=== PATIENT | male | born 1935 | race Caucasian/White ===

== ENCOUNTER 2022-01-26 07:36 | Outpatient (CLI) | payer MEDICARE, SELFPAY ==
[2022-01-26 11:49] LABS: Creatinine Urine 69.2 mg/dL
[2022-01-26 11:53] LABS: Microalbumin Creatinine Ratio 10 mg/g (0-30); Microalbumin Urine < 1 mg/dL
[2022-01-26 12:13] LABS: Albumin* 4.3 g/dL (3.3-5.0)
[2022-01-26 12:14] LABS: Chloride* 99 mmol/L (96-114); Potassium* 4.8 mmol/L (3.6-5.1); Sodium* 133 mmol/L (135-149)
[2022-01-26 12:16] LABS: Aspartate Amino Transferase* 30 U/L (12-35); Bilirubin Total* 0.5 mg/dL (0.1-1.5); Carbon Dioxide* 23 mmol/L (20-32); Creatinine* 1.3 mg/dL (0.5-1.5); Estimated Glomerular Filt Rate 54 ml/min; Total Protein* 6.7 g/dL (6.0-8.3)
[2022-01-26 12:17] LABS: Alanine Aminotransferase* 21 U/L (4-50); Alkaline Phosphatase* 84 U/L (40-150); Blood Urea Nitrogen* 37 mg/dL (7-30); Calcium* 9.1 mg/dL (8.4-10.6); Glucose* 177 mg/dL (60-115); Lipase* 79 U/L (23-300)
== END 2022-01-26 07:37 | disposition home or self-care (01) ==
PROVIDERS: PCP Family Medicine; Visit Provider Family Medicine
DX: E11.9 Type 2 diabetes mellitus without complications (principal); D64.9 Anemia, unspecified; I10 Essential (primary) hypertension; E78.5 Hyperlipidemia, unspecified
CPT/HCPCS: 80053; 82043; 82570; 83690

== ENCOUNTER 2022-04-27 08:50 | Outpatient (CLI) | payer MEDICARE, SELFPAY ==
--- OUTSIDE RECORDS SUMMARY | 2022-04-27 07:32 | XMS_ITS | Clinical Summary ---
:1935 Author Organization [facility] [place] [address] Care Team Providers Name Role Phone Ina Sheriff MD Primary Care Provider [phone] Allergies No known active allergies Medications Medication Sig Dispensed Refills Start Date End Date Status aspirin-calcium Take 1 Tab by 0 Active carbonate 81 mg-300 mg mouth once a calcium(777 mg) tab week in the morning. atorvastatin (LIPITOR) Take 1 tablet by 0 03/03/2018 Active 40 mg tablet mouth once daily. bicalutamide (CASODEX) Take 50 mg by 0 09/27/2017 Active 50 mg tablet mouth once daily. calcium Take 1 Tab by 0 Active carbonate/vitamin D3 mouth once (CALCIUM+D ORAL) daily. multivitamin-folic acid Take 1 Tab by 0 Active 0.4 mg tablet mouth once daily. cholecalciferol (VITAMIN Take 1 Cap by 0 Active D3) 1,000 unit capsule mouth once daily. Cinnamon Bark 500 mg Take 1 Cap by 0 Active capsule mouth once daily. glipiZIDE Take 1 tablet by 0 05/24/2019 Ac tive extended-release mouth once daily (GLUCOTROL XL) 5 mg before a meal. Extended-Release tablet lisinopril (PRINIVIL; Take 1 tablet by 0 04/24/2019 Active ZESTRIL) 20 mg tablet mouth once daily. metFORMIN (GLUCOPHAGE) Take 1 tablet by 0 02/16/2018 Active 1,000 mg tablet mouth once daily with a meal. multivitamin, stress Take 1 Tab by 0 Active formula (STRESS FORMULA) mouth once tablet daily. Coenzyme Q10 10 mg cap Take 1 Cap by 0 Active mouth once daily. cyclobenzaprine Bedtime as 0 03/13/2020 Ac tive (FLEXERIL) 10 mg tablet needed resveratrol-quercetin Take by mouth. 0 03/18/2020 Active 100-100 mg tab Active Problems No known active problems Family History Medical History Relation Name Comments Stomach cancer Father Heart Disease Mother Relation Name Status Comments Father Mother Social History Tobacco Use Types Packs/Day Years Used Date Former Smoker Smokeless Tobacco: Never Used Tobacco Cessation: Counseling Given: Yes Sex Assigned at Date Recorded Not on file Obstetrics History Last Filed Vital Signs Vital Sign Reading Time Taken Comments Blood Pressure 133/80 03/18/2020 11:27 AM CDT Pulse 74 03/18/2020 11:27 AM CDT Temperature 36.4 ??C (97.6 ??F) 03/18/2020 11:27 AM CDT Respiratory Rate - - Oxygen Saturation 100% 03/18/2020 11:27 AM CDT Inhaled Oxygen Concentration - - Weight 87.3 kg (192 lb 6.4 oz) 03/18/2020 11:27 AM CDT shoes on Height - - Body Mass Index - - Plan of Treatment Health Maintenance Due Date Last Done Comments COVID-19 vaccine series (#1) 1935 Tdap 1948 Depression screening for age 12+ 1949 BMI (ht and wt on same day) for age 18+ 1955 Tetanus booster 1957 Zoster (shingles) series for age 50+ (1 of 2) 1987 Medicare Wellness for age 65+ 2002 Pneumococcal series for age 65+ (1 - PCV) 2002 Influenza for age 65+ 02/12/2022 Results Not on filefrom Last 3 Months Insurance Payer Benefit Plan / Subscriber ID Effective Dates Phone Addre ss Type Group [employer] G[employer] [place] [employer] CHOICE [id number] 2018-Present [address] [id number] [place] [address] Care Teams Board Catcher Relationship Specialty Start Date End Date Ina Sheriff MD PCP - General Family Practice 03/18/201999 [place] [address] (work)
--- OUTSIDE RECORDS SUMMARY | 2022-04-27 07:33 | XMS_ITS | Encounter Summary ---
:1935 Author Organization [facility] Address [address] [place] [address]. [place] [address] Care Team Providers Name Role Phone Ina Sheriff MD Primary Care Provider [phone] eHrson Licea MD Unavailable Ke Hernandes MD Unavailable Reason for Visit Reason Onset Date Comments Call to schedule test 03/13/2022 Encounter Details Date Type Department Care Team Description 03/13/2022 [facility] Ke Hernandes ll to schedule test Clinic Daniel Richardson MD [address] [facility] [address] Counts include 234 beds at the [facility] [address] [place] [phone] [place] [id number] (Wo rk) Social History Tobacco Use Types Packs/Day Years Used Date Smoking Tobacco: Former Cigarettes Quit : 02/29/1980 Smokeless Tobacco: Never Alcohol Use Standard Drinks/Week Comments Yes 0 (1 standard drink = 0.6 oz pure alcoho l) occasionally Sex Assigned at Date Recorded Not on file COVID-19 Exposure Response Date Recorded In the last 10 days, have you been in contact with No / Unsu re 02/25/2022 1:23 PM CDT someone who was confirmed or suspected to have Coronavirus/COVID-19? documented as of this encounter Miscellaneous Notes Telephone Encounter - Flora Marshall - 03/13/2022 4:15 PM CDT [facility] Phone Message May a detailed message be left on voicemail: yes Reason for Call: Other: Please call the patient to schedule NM Lexiscan Stress test in BV Action Taken: Other: Cardiology Travel Screening: Not Applicable documented in this encounter Plan of Treatment Upcoming Encounters Date Type Specialty Care Team Description 06/18/2022 Ancillary Procedure Cardiology Abdi Bailey MD [address] [place], [place] [id number] (Wo rk) documented as of this encounter Visit Diagnoses Not on filedocumented in this encounter Care Teams Director Of Sustainability Relationship Specialty Start Date End Date Ina Sheriff, PCP - General Family Medicine 01/30/[address] [address] Herson Licea MD Assigned Surgical Provider 02/02/[address] [place] [id number] Ke Hernandes, Assigned Heart and 12/13/21 Vascular Provider [address] [place] [id number] documented as of this encounter
--- OUTSIDE RECORDS SUMMARY | 2022-04-27 07:33 | XMS_ITS | Encounter Summary ---
:1935 Author Organization [facility] Address [facility] [place] [address] Care Team Providers Name Role Phone Ina Sheriff MD Primary Care Provider [phone] Herson Licea MD Unavailable Ke Hernandes MD Unavailable Reason for Referral Diagnostic Imaging NM (Routine) - Authorized Specialty Diagnoses / Procedures Referred By Contact Refer red To Contact Radiology. Diagnoses NSVT (nonsustained ventricular tachycardia) Ke Hernandes MD Nuclear Medicine Procedures NM Lexiscan stress test (nuc card) [address] [place] [address] [place], [place] [phone] Fax: Referral ID Status Reason Start Date Expiration Date Visits V isits Requested Authorized [id number] Authorized 03/20/2022 05/05/2022 5 5 Reason for Visit Diagnostic Imaging NM (Routine) - Authorized Specialty Diagnoses / Procedures Referred By Contact Refer red To Contact Radiology. Diagnoses NSVT (nonsustained ventricular tachycardia) Ke Hernandes MD Nuclear Medicine Procedures NM Lexiscan stress test (nuc card) [address] [place] [address] [place] [phone] Fax: Referral ID Status Reason Start Date Expiration Date Visits V isits Requested Authorized [id number] Authorized 03/20/2022 05/05/2022 5 5 Encounter Details Date Type Department Care Team Description 03/20/2022 Hospital Encounter [facility] Ke Hernandes [place] (nonsustained [facility] MD Dylan ventricular [facility] [address] tachycardia) [address] [place] [phone] Social History Tobacco Use Types Packs/Day Years [...] in contact with No / Unsu re 03/20/2022 7:47 AM CDT someone who was confirmed or suspected to have Coronavirus/COVID-19? documented as of this encounter Medications at Time of Discharge Medication Sig Dispensed Refills Start Date End Date aspirin 81 MG tablet Take 1 tablet by 0 mouth daily atorvastatin (LIPITOR) 40 TAKE 1 TABLET BY 90 tablet 3 02/13 MG tabletIndications: MOUTH DAILY Hyperlipidemia LDL goal <100 blood glucose (ACCU-CHEK USE TO TEST EVERY 100 strip 1 11/13 FRANCISCO PLUS) test DAY DIRECTED stripIndications: Type 2 diabetes mellitus without complication, without long-term current use of insulin (H) Cholecalciferol (VITAMIN D) Take 2,000 Units by 0 1000 UNITS capsule mouth daily cinnamon 500 MG CAPS Take 1 capsule by 0 mouth daily Co-Enzyme Q-10 10 MG CAPS Take 1 capsule by 0 mouth daily Dose of capsule unknown. glipiZIDE (GLUCOTROL XL) 10 TK 1 T PO D 0 020 MG 24 hr tablet lisinopril TAKE 1 TABLET BY 90 tablet 1 08/03/2018 (PRINIVIL/ZESTRIL) 20 MG MOUTH DAILY tabletIndications: Essential hypertension with goal blood pressure less than 140/90 metFORMIN (GLUCOPHAGE) 1000 TAKE 1 TABLET BY 180 tablet 3 MG tabletIndications: Type MOUTH TWICE DAILY 2 diabetes mellitus without complication, without long-term current use of insulin (H) Multiple Vitamin (DAILY Take 1 tablet by 0 MULTIVITAMIN PO) mouth daily vitamin B complex with Take 1 tablet by 0 vitamin C (STRESS TAB) mouth daily. tablet documented as of this encounter Plan of Treatment Upcoming Encounters Date Type Specialty Care Team Description 06/18/2022 Ancillary Procedure Cardiology Abdi Bailey MD [address] [place] [address] (Wo rk) documented as of this encounter Procedures Procedure Name Priority Date/Time Associated Diagnosis Comme nts NM MPI WITH Routine 03/20/2022 10:25 AM NSVT (nonsustained Re sults for this LEXISCAN CDT ventricular procedure are i n tachycardia) the results section. documented in this encounter Results NM Lexiscan stress test (nuc card) (03/20/2022 10:25 AM CDT) Patholo gist Method Time Signature Target HR 136 RADIANT Baseline 151 RADIANT Systolic BP Baseline 81 RADIANT Diastolic BP Last Stress 145 RADIANT Systolic BP Last Stress 85 RADIANT Diastolic BP Baseline HR 64 bpm RADIANT Max HR 80 RADIANT Max Predicted HR 59 % RADIANT Rate Pressure 11,600.0 RADIANT Product Left Ventricular 45 % RADIANT EF Anatomical Region Laterality Modality Chest Nuclear Medicine Specimen (Source) Anatomical Location Collection Method / Collectio n Time Received Time / Laterality Volume Narrative 03/20/2022 4:00 PM CDT ?The nuclear stress test is abnormal. ?There is a medium sized area of nontransmural infarction in the apical, inferior and inferoseptal segment(s) of the left ventricle. ?Left ventricular function is mildly reduced. ??The left ventricular ejection fraction at stress is 45%. ?There is no prior study for comparison. Stress Findings A pharmacologic stress test was performe d following a sitting Lexiscan protocol using 0.4 mg of intravenous regadenoson administered over 10 seconds under the supervision of Narendra Negron. No s ymptoms were reported by the patient dur ing the stress test. ECG Baseline electrocardiogram demonstrates atrioventricular pacing and sinus with ventricular pacing. There were frequent premature atrial contractions and . The stress electrocardiogram was non-machelle gnostic due to ventricular pacing. Isotope Administration Nuclear imaging was accomplished using a one day protocol with 32 mCi of technetium tetrofosmin injected at the completion of Lexiscan infusion on 03/20/2022 and 10.3 mCi of technetium tetrofosmin at rest on 03/20/2022. Nuclear Study Quality The quality process auditor images demonstrate d iaphragmatic attenuation. Final image quality is satisfactory. Perfusion Defect The nuclear stress test is abnormal. The re is a medium sized area of nontransmural infarction in the apical, inferior and inferoseptal segment(s) of the left ventricle. The left ventricular ejection fra ction at stress is 45%. Left ventricular function is mildly reduced. Nuclear Prior Study There is no prior study for comparison. Perfusion Scoring Stress Summed Score: 11 Percent Normal: 16.18% Moderate count reduction in the followin g segments: mid inferoseptal, mid inferior, apex, apical septal and apical inferior. Mild count reduction in the following se gments: basal inferior. All other segments are normal. Perfusion Scoring Resting Summed Score: 11 Percent Normal: 16.18% Moderate count reduction in the followin g segments: mid inferoseptal, mid inferior, apex, apical septal and apical inferior. Mild count reduction in the following se gments: basal inferior. All other segments are normal. Perfusion Scores: SRS Score: 11 Percenta ge Abnormal: 16.18% Perfusion Scores: SSS Score: 11 Percenta ge Abnormal: 16.18% Perfusion Scores: SDS Score: 0 Percentag e Abnormal: 0.00% Wall Motion Score Index: 1.35 The following segments are hypokinetic: basal inferior, mid inferoseptal, mid inferior, apical septal, apical inferior and apex. All other segments are normal. Ke Hernandes MD IM NM ORDERABLES documented in this encounter Visit Diagnoses Diagnosis NSVT (nonsustained ventricular tachycard ia) Paroxysmal ventricular tachycardia documented in this encounter Administered Medications Inactive Administered Medications - up to 3 most recent administrations Medication Order MAR Action Action Date Dose Rate Site regadenoson (LEXISCAN) 0.4 MG/5ML Given 03/20/2022 9:18 AM CDT 0 .4 mg injection Starting on Wed03/20/22 at 0911, For 1 dose, Chance Becerra: cabinet override documented in this encounter Care Teams Personal Development Mentor Relationship Specialty Start Date End Date Ina Sheriff, PCP - General Family Medicine 01/30/21 [facility] [address] [place] [address] Herson Licea MD Assigned Surgical Provider 02/02/[address] [place] [id number] Ke Hernandes, Assigned Heart and 12/13/21 Vascular Provider [address] [facility] [address] [place], [place] [address] documented as of this encounter
--- OUTSIDE RECORDS SUMMARY | 2022-04-27 07:33 | XMS_ITS | Clinical Summary ---
:1935 Author Organization [facility] Address [address] [place] [address] Care Team Providers Name Role Phone Ina Sheriff MD Primary Care Provider [phone] Herson Licea MD Unavailable Ke Reno MD Unavailable Allergies No known active allergies Medications Medication Sig Dispensed Refills Start Date End Date Status aspirin 81 MG tablet Take 1 tablet by 0 Active mouth daily Multiple Vitamin (DAILY Take 1 tablet by 0 Active MULTIVITAMIN PO) mouth daily Co-Enzyme Q-10 10 MG Take 1 capsule 0 Active CAPS by mouth daily Dose of capsule unknown. Cholecalciferol Take 2,000 Units 0 Active (VITAMIN D) 1000 UNITS by mouth daily capsule vitamin B complex with Take 1 tablet by 0 Active vitamin C (STRESS TAB) mouth daily. tablet cinnamon 500 MG CAPS Take 1 capsule 0 Active by mouth daily metFORMIN (GLUCOPHAGE) TAKE 1 TABLET BY 180 tablet 3 8 Active 1000 MG MOUTH TWICE tabletIndications: Type DAILY 2 diabetes mellitus without complication, without long-term current use of insulin (H) atorvastatin (LIPITOR) TAKE 1 TABLET BY 90 tablet 3 03/03/2018 Active 40 MG MOUTH DAILY tabletIndications: Hyperlipidemia LDL goal <100 lisinopril TAKE 1 TABLET BY 90 tablet 1 08/03/2018 A ctive (PRINIVIL/ZESTRIL) 20 MOUTH DAILY MG tabletIndications: Essential hypertension with goal blood pressure less than 140/90 blood glucose USE TO TEST 100 strip 1 12/05/2018 Act jose david (ACCU-CHEK FRANCISCO PLUS) EVERY DAY test stripIndications: DIRECTED Type 2 diabetes mellitus without complication, without long-term current use of insulin (H) glipiZIDE (GLUCOTROL TK 1 T PO D 0 03/04/2020 Active XL) 10 MG 24 hr tablet Active Problems Problem Noted Date Type 2 diabetes mellitus without complication, without long-term current 04/21/2017 use of insulin Benign paroxysmal positional vertigo, unspecified late rality 04/21/2017 Third degree heart block 07/12/2016 Overview: Formatting of this note is dif ferent from the original. Complete heart block, status post dual-c hamber pacemaker on 07/13/2016. ?? History of colonic polyps 03/17/2016 H/O tobacco use, presenting hazards to health 09/06/19 14 Overview: Quit 1979. In 03/25, CT abd shows no AAA Hypertension goal BP (blood pressure) < 140/90 013 Overview: Add lisinopril 02/24 Hyperlipidemia LDL goal <100 09/07/2012 Overview: incr to atorva 40 in 01/26 Preventive measure 09/07/2012 Overview: Colonoscopy 04/24; a 10 mm polyp;tubular adenoma; negative in March 2016. No follow-up needed based on age. Type 2 diabetes mellitus without complication 04/21/20 11 Overview: DX approx 2003 per pt Malignant neoplasm of prostate Overview: Prostate cancer; radioactive seeds ; Dr. Mckee;PSA 8.6 in 04/25; casodex in 2012. Stable in 11/26 and in 02/27 ; < 0.04 in 08/28; Dr Good and in 02/28 and in 08/29 and in 08/30 Encounters Date Type Specialty Care Team Description 03/27/2022 Telephone Cardiology Jo Aguilar RN 03/20/2022 Hospital Encounter Radiology. Ke Reno MD 03/20/2022 Hospital Encounter Radiology. Ke Reno MD 03/20/2022 Hospital Encounter Radiology. Ke Reno MD 03/20/2022 Hospital Encounter Cardiology Ke Reno NSVT (n onsustained MD Sergio ventricular tachycardia) 03/20/2022 Travel 03/17/2022 Telephone Cardiology Jo Aguilar RN 03/13/2022 Telephone Cardiology Ke Reno Call to silvana Hill MD 03/12/2022 Telephone Cardiology Heather Sharif pacemaker re mote check 03/12/2022 Orders Only Cardiology Abdi Bailey MD Cardiac pacem lexis in situ (Primary D x) 03/12/2022 Ancillary Procedure Cardiology Abdi Bailey MD Cardia c pacemaker in situ 02/25/2022 Hospital Encounter Cardiology Ke Reno Paroxys mal ventricular MD Sergio tachycardia (H) 02/25/2022 Travel 02/04/2022 Office Visit Urology Herson Licea Prostat e cancer (H) (Primary Dx) 02/04/2022 Travel 01/29/2022 Lab Lab Prostate cancer (H) 01/29/2022 Travel 01/26/2022 Orders Only Urology Herson Licea Prostat e cancer (H) (Primary Dx) 01/26/2022 Documentation Only Lab Herson Licea MD from Last 3 Months Immunizations Name Administration Dates Next Due Influenza (H1N1) 06/03/2009 Influenza (High Dose) 3 valent 02/16/2018, 04/02/2017, 03/17, 02/16/2019 vaccine 03/22/2015 Influenza (IIV3) PF 02/25/2010, 04/09/2005 Pneumo Conj 13-V (2010&after) 01/30/2015 Pneumococcal 23 valent 02/16/2018 TD (ADULT, 7+) 02/18/2006 Zoster vaccine, live 03/10/2012 Family History Medical History Relation Comments Cancer Brother Diabetes Son 1 type 2 DM age 50 Relation Status Comments Brother Daughter Alive Father Mother Son 1 Alive Son 2 Alive Social History Tobacco Use Types Packs/Day Years Used Date Smoking Tobacco: Former Cigarettes Quit : 02/29/1980 Smokeless Tobacco: Never Tobacco Cessation: Counseling Given: No Alcohol Use Standard Drinks/Week Comments Yes 0 (1 standard drink = 0.6 oz pure alcoho l) occasionally Sex Assigned at Date Recorded Not on file Last Filed Vital Signs Vital Sign Reading Time Taken Comments Blood Pressure 124/70 02/04/2022 2:09 PM CDT Pulse 72 12/10/2021 3:37 PM CDT Temperature 36.6 ??C (97.9 ??F) 02/16/2018 8:36 AM CDT Respiratory Rate 14 02/16/2018 8:36 AM CDT Oxygen Saturation 99% 12/10/2021 3:37 PM CDT Inhaled Oxygen Concentration - - Weight 83.9 kg (185 lb) 02/04/2022 2:09 PM CDT Height 185.4 cm (6' 1) 02/04/2022 2:09 PM CDT Body Mass Index 24.41 02/04/2022 2:09 PM CDT Plan of Treatment Upcoming Encounters Date Type Specialty Care Team Description 06/18/2022 Ancillary Procedure Cardiology Abdi Bailey MD [address] [place] [id number] (Wo rk) Health Maintenance Due Date Last Done Comments ADVANCE CARE PLANNING 1935 ANNUAL REVIEW OF HM ORDERS 1935 LIPID 05/14/2018 05/14/2017, 07/23/2015, 03/21/2014, Additional history exists A1C 08/16/2018 02/16/2018, 04/21/2017, 07/13/2016, Additional history exists BMP 02/16/2019 02/16/2018, 04/21/2017, 07/13/2016, Additional history exists DIABETIC FOOT EXAM 02/16/2019 02/16/2018, 02/16/2018, 03/17/2016, Additional history exists FALL RISK ASSESSMENT 02/16/2019 02/16/2018, 07/21/2016, 07/23/2015, Additional history exists MEDICARE ANNUAL WELLNESS 02/16/2019 02/16/2018 VISIT MICROALBUMIN 02/16/2019 02/16/2018, 04/21/2017, 07/23/2015, Additional history exists EYE EXAM 03/08/2021 03/08/2020, 08/07/2019, 08/07/2019, Additional history exists PHQ-2 (once per calendar 06/14/2021 01/30/2021, 11/21/2019, year) 09/07/2018, Additional history exists COVID-19 Vaccine (5 - 01/06/2022 11/11/2021, 04/03/2021, Booster for Pfizer series) 08/20/2020, Additiona l history exists INFLUENZA VACCINE (#1) 2022 03/24/2021, 02/27/2020, 03/24/2019, Additional history exists DTAP/TDAP/TD IMMUNIZATION 05/23/2030 05/23/2020, 02/18/2006 (3 - Td or Tdap) Pneumococcal Vaccine: 65+ Completed 02/16/2018, 01/30/2015 , Years 03/10/2010 ZOSTER IMMUNIZATION Completed 05/23/2020, 02/27/2020, 03/10/2012, Additional history exists IPV IMMUNIZATION Aged Out No longer eligi ble based on patient 's age to complete this topic MENINGITIS IMMUNIZATION Aged Out No longe r eligible based on patient 's age to complete this topic Medical Devices Implanted Type Area Advance Seal Delivery System Maintainer Device Shelf Model / Serial Identifier Expiration / Lot Date Medtronic I* [id number] Capsurefix Novus Mri Surescan [id number] Leads [employer] 5076 CAPSUREFIX NOVUS MRI MARTINEZ RESCAN / Implanted: 07/13/2016 (Quantity not on file) [id number] / Medtronic I* [id number] Advisa Mri [id number] Pacemaker [employer] [id number] ADVISA MRI / Implanted: 07/13/2016 (Quantity not on file) [id number] / Procedures Procedure Name Priority Date/Time Associated Comments Diagnosis NM MPI WITH LEXISCAN Routine 03/20/2022 10:25 NSVT (nonsustain ed Results for this AM CDT ventricular procedure are i n tachycardia) the results section. INTERROGATION DEVICE Routine 03/12/2022 1:40 PM Cardiac pacema ker Results for this EVAL REMOTE PACER UP CDT in situ procedu re are in TO 90 DAYS the results section. ECHO LIMITED Routine 02/25/2022 2:16 PM Paroxysmal Results f or this CDT ventricular procedure are i n tachycardia (H) the results section. PSA TUMOR MARKER Routine 01/29/2022 7:59 AM Prostate cancer (H ) Results for this CDT procedure are i n the results section. from Last 3 Months Results NM Lexiscan stress test (nuc card) (03/20/2022 10:25 AM CDT) [facility] gist Method Time Signature Target HR 136 [...] on 03/20/2022. Nuclear Study Quality The quality assurance images demonstrate d iaphragmatic attenuation. Final image [...] apex. All other segments are normal. Ke FLANNERY NM ORDERABLES INTERROGATION DEVICE EVAL REMOTE PACER UP TO 90 DAYS (03/12/2022 1:40 PM CDT) Component Value Ref Test Analysis Performed Pathologis t Range Method Time At Signature Date Time [id number] MEDTRONIC Interrogation Session Implantable Medtronic MEDTRONIC Pulse Generator Advance Seal Delivery System Maintainer Implantable [id number] Advisa MEDTRONIC Pulse Generator MRI Model Implantable [id number] MEDTRONIC Pulse Generator Serial Number Type Remote MEDTRONIC Interrogation Session Clinic Name [facility] MEDTRONIC Implantable Pacemaker MEDTRONIC Pulse Generator Type Implantable [id number] MEDTRONIC Pulse Generator Implant Date Implantable Lead Medtronic MEDTRONIC Advance Seal Delivery System Maintainer Implantable Lead 5076 CapSureFix MEDTRON IC Model Novus MRI SureScan Implantable Lead [id number] MEDTRONIC Serial Number Implantable Lead [id number] MEDTRONIC Implant Date Implantable Lead Bipolar Lead MEDTRONIC Polarity Type Implantable Lead UNKNOWN MEDTRONIC Location Detail 1 Implantable Lead Right Atrium MEDTRONIC Location Implantable Lead Medtronic MEDTRONIC Advance Seal Delivery System Maintainer Implantable Lead 5076 CapSureFix MEDTRON IC Model Novus MRI SureScan Implantable Lead [id number] MEDTRONIC Serial Number Implantable Lead [id number] MEDTRONIC Implant Date Implantable Lead Bipolar Lead MEDTRONIC Polarity Type Implantable Lead UNKNOWN MEDTRONIC Location Detail 1 Implantable Lead Right Ventricle MEDTRON IC Location [place] Setting DDD MEDTRONIC Mode (NBG Code) [place] Setting 60 {beats}/ MEDTRONIC Lower Rate Limit min [place] Setting 130 {beats}/ MEDTRONIC Maximum Tracking min Rate [place] Setting 130 {beats}/ MEDTRONIC Maximum Sensor min Rate [place] Setting DISABLED MEDTRONIC Hysterisis Rate [place] Setting 150 ms MEDTRONIC ABY Delay Low [place] Setting 180 ms MEDTRONIC PAV Delay Low [place] Setting AT 171 {beats}/ MEDTRONIC Mode Switch Rate min Lead Channel Bipolar MEDTRONIC Setting Sensing Polarity Lead Channel Right Atrium MEDTRONIC Setting Sensing Anode Location Lead Channel Ring MEDTRONIC Setting Sensing Anode Terminal Lead Channel Right Atrium MEDTRONIC Setting Sensing Cathode Location Lead Channel Tip MEDTRONIC Setting Sensing Cathode Terminal Lead Channel 0.3 mV MEDTRONIC Setting Sensing Sensitivity Lead Channel Bipolar MEDTRONIC Setting Sensing Polarity Lead Channel Right Ventricle MEDTRONIC Setting Sensing Anode Location Lead Channel Ring MEDTRONIC Setting Sensing Anode Terminal Lead Channel Right Ventricle MEDTRONIC Setting Sensing Cathode Location Lead Channel Tip MEDTRONIC Setting Sensing Cathode Terminal Lead Channel 0.9 mV MEDTRONIC Setting Sensing Sensitivity Lead Channel Bipolar MEDTRONIC Setting Pacing Polarity Lead Channel Right Atrium MEDTRONIC Setting Pacing Anode Location Lead Channel Ring MEDTRONIC Setting Pacing Anode Terminal Lead Channel Right Atrium MEDTRONIC Setting Sensing Cathode Location Lead Channel Tip MEDTRONIC Setting Sensing Cathode Terminal Lead Channel 0.4 ms MEDTRONIC Setting Pacing Pulse Width Lead Channel 1.5 V MEDTRONIC Setting Pacing Amplitude Lead Channel Adaptive MEDTRONIC Setting Pacing Capture Mode Lead Channel Bipolar MEDTRONIC Setting Pacing Polarity Lead Channel Right Ventricle MEDTRONIC Setting Pacing Anode Location Lead Channel Ring MEDTRONIC Setting Pacing Anode Terminal Lead Channel Right Ventricle MEDTRONIC Setting Sensing Cathode Location Lead Channel Tip MEDTRONIC Setting Sensing Cathode Terminal Lead Channel 0.4 ms MEDTRONIC Setting Pacing Pulse Width Lead Channel 2.5 V MEDTRONIC Setting Pacing Amplitude Lead Channel Adaptive MEDTRONIC Setting Pacing Capture Mode Zone Setting VF MEDTRONIC Type Category Zone Setting VT MEDTRONIC Type Category Zone Setting VT MEDTRONIC Type Category Zone Setting VT MEDTRONIC Type Category Zone Setting 400 ms MEDTRONIC Detection Interval Zone Setting ATRIAL_FIBRILLATI MEDTRONIC Type Category ON Zone Setting AT/AF MEDTRONIC Type Category Zone Setting 350 ms MEDTRONIC Detection Interval Lead Channel 380 ohm MEDTRONIC Impedance Value Lead Channel 380 ohm MEDTRONIC Impedance Value Lead Channel 2.25 mV MEDTRONIC Sensing Intrinsic Amplitude Lead Channel 2.25 mV MEDTRONIC Sensing Intrinsic Amplitude Lead Channel 0.375 V MEDTRONIC Pacing Threshold Amplitude Lead Channel 0.4 ms MEDTRONIC Pacing Threshold Pulse Width Lead Channel 494 ohm MEDTRONIC Impedance Value Lead Channel 437 ohm MEDTRONIC Impedance Value Lead Channel 8.75 mV MEDTRONIC Sensing Intrinsic Amplitude Lead Channel 8.75 mV MEDTRONIC Sensing Intrinsic Amplitude Lead Channel 0.75 V MEDTRONIC Pacing Threshold Amplitude Lead Channel 0.4 ms MEDTRONIC Pacing Threshold Pulse Width Battery Date [id number] MEDTRONIC Time of Measurements Battery Status OK [employer]TRONIC Battery RADIOISOTOPE TECHNICIAN 2.83 MEDTRONIC Trigger Battery 44 mo MEDTRONIC Remaining Longevity Battery Voltage 2.97 V MEDTRONIC Irving Statistic [id number] MEDTRONIC Date Time Start Irving Statistic [id number] MEDTRONIC Date Time End Irving Statistic 28.21 % MEDTRONIC RA Percent Paced Irving Statistic 99.76 % MEDTRONIC RV Percent Paced [place] Statistic 28.41 % MEDTRONIC AP CLOTH CUTTING INSPECTOR Percent Irving Statistic 71.54 % MEDTRONIC CLOTH CUTTING INSPECTOR Percent [place] Statistic 0 % MEDTRONIC AP VS Percent Irving Statistic 0.05 % MEDTRONIC VS Percent Atrial Tachy [id number] MEDTRONIC Statistic Date Time Start Atrial Tachy [id number] MEDTRONIC Statistic Date Time End Atrial Tachy 0 % MEDTRONIC Statistic AT/AF [place] Percent Episode 0 MEDTRONIC Statistic Recent Count Episode AT/AF MEDTRONIC Statistic Type Category Episode 0 MEDTRONIC Statistic Recent Count Episode SVT MEDTRONIC Statistic Type Category Episode 1 MEDTRONIC Statistic Recent Count Episode VT MEDTRONIC Statistic Type Category Episode 0 MEDTRONIC Statistic Recent Count Episode VT MEDTRONIC Statistic Type Category Episode [id number] MEDTRONIC Statistic Recent Date Time Start Episode [id number] MEDTRONIC Statistic Recent Date Time End Episode [id number] MEDTRONIC Statistic Recent Date Time Start Episode [id number] MEDTRONIC Statistic Recent Date Time End Episode [id number] MEDTRONIC Statistic Recent Date Time Start Episode [id number] MEDTRONIC Statistic Recent Date Time End Episode [id number] MEDTRONIC Statistic Recent Date Time Start Episode [id number] MEDTRONIC Statistic Recent Date Time End Episode 1 MEDTRONIC Statistic Total Count Episode AT/AF MEDTRONIC Statistic Type Category Episode 0 MEDTRONIC Statistic Total Count Episode SVT MEDTRONIC Statistic Type Category Episode 3 MEDTRONIC Statistic Total Count Episode VT MEDTRONIC Statistic Type Category Episode 0 MEDTRONIC Statistic Total Count Episode VT MEDTRONIC Statistic Type Category Episode [id number] MEDTRONIC Statistic Total Date Time Start Episode [id number] MEDTRONIC Statistic Total Date Time End Episode [id number] MEDTRONIC Statistic Total Date Time Start Episode [id number] MEDTRONIC Statistic Total Date Time End Episode [id number] MEDTRONIC Statistic Total Date Time Start Episode [id number] MEDTRONIC Statistic Total Date Time End Episode [id number] MEDTRONIC Statistic Total Date Time Start Episode [id number] MEDTRONIC Statistic Total Date Time End Episode 4 MEDTRONIC Identifier Episode Type [place] MEDTRONIC Category Episode Date [id number] MEDTRONIC Time Episode Duration 3 s MEDTRONIC Anatomical Region Laterality Modality Other Specimen (Source) Anatomical Collection Method Collection Time Re ceived Time Location / / Volume Laterality 03/12/2022 11:19 AM CDT Narrative 03/19/2022 1:50 PM CDT Medtronic Advisa (D) Remote PPM Device Check AP: 38.5% CLOTH CUTTING INSPECTOR: >99% Mode: DDD 60/130 Presenting Rhythm: /CLOTH CUTTING INSPECTOR Heart Rate: adequate heart rates per his togram Sensing: stable Pacing Threshold: stable Impedance: stable Battery Status: 3.5 years Atrial Arrhythmia: none Ventricular Arrhythmia: 1 ventricular hi gh rate. EGM shows Vs>As for NSVT lasting 14 beats, rates 175-210bpm. Epis ode occurred 12/16/21 at 4:26 pm. No associated symptoms. EF 50-55% (2021). W ill notify Dr. Reno. Care Plan: F/u PPM [facility] q 3 months. Pt due to see cardiology 11/2022. Gave results over the phone to pt. Uli salmeron CVT I have reviewed and interpreted the colby ce interrogation, settings, programming and nurse's summary. The dev ice is functioning within normal device parameters. I agree with the curr ent findings, assessment and plan. Abdi Bailey MD CV CARDIAC SERVICES ORDERABL ECHO LIMITED (02/25/2022 2:16 PM CDT) P athologist Signature LVEF 50-55% CARDIOLOGY RESULTS Anatomical Region Laterality Modality Echocardiography Specimen (Source) Anatomical Collection Method Collection Time Re ceived Time Location / / Volume Laterality 02/25/2022 12:41 PM CDT Narrative 02/25/2022 3:19 PM CDT [id number]^ROWDY^KE^H[place] [facility] Echocardiography Laboratory [address] [place] [address] Name: JANETH SIDDIQUI : 1935 Study Date: 02/25/2022 12:41 PM Age: 86 yrs Gender: Male Patient Location: [facility] Reason For Study: Paroxysmal ventricular tachycardia (H) Ordering Physician: KE RENO Referring Physician: KE RENO Performed By: Lourdes Galvez BSA: 2.1 m2 Height: 73 in Weight: 185 lb HR: 57 BP: 124/70 mmHg Procedure Limited Echo Adult. Interpretation Summary The visual ejection fraction is 50-55%. Septal wall motion abnormality may refle ct pacemaker activation. A small area of the distal septum may be hypokinetic. There is a catheter/pacemaker lead seen in the right ventricle. Left Ventricle The left ventricle is normal in size. Th ere is normal left ventricular wall thickness. The visual ejection fraction is 50-55%. Grade I or early diastolic dysfunction. Septal wall motion abnormal ity may reflect pacemaker activation. Right Ventricle There is a catheter/pacemaker lead seen in the right ventricle. The right ventricle is normal in structure, functi on and size. Atria Normal left atrial size. Right atrial si ze is normal. Mitral Valve The mitral valve is normal in structure and function. There is trace mitral regurgitation. Tricuspid Valve The tricuspid valve is not well visualiz ed, but is grossly normal. Normal tricuspid valve. Aortic Valve The aortic valve is normal in structure and function. Pulmonic Valve Normal pulmonic valve. Vessels The aortic root is normal size. The infe rior vena cava is normal. Pericardium There is no pericardial effusion. Rhythm The rhythm was paced. MMode/2D Measurements & Calculations LVOT diam: 2.4 cm LVOT area: 4.7 cm2 Doppler Measurements & Calculations MV E max darian: 43.1 cm/sec MV A max darian: 70.3 cm/sec MV E/A: 0.61 MV dec slope: 153.5 cm/sec2 MV dec time: 0.28 sec LV V1 max P.1 mmHg LV V1 max: 72.4 cm/sec LV V1 VTI: 17.0 cm SV(LVOT): 79.3 ml SI(LVOT): 38.1 ml/m2 TR max darian: 237.7 cm/sec TR max P.6 mmHg E/E': 8.3 Peak E' Darian: 5.2 cm/sec Report approved by: Jazmine Maldonado 02/25 03:19 PM Procedure Note Vladimir Wade MD - 02/25/2022Forma tting of this note might be different from the original. [id number]^ROWDY^KE^SERGIO [facility] Echocardiography Laboratory [address] [place] [address] Name: JANETH SIDDIQUI : 1935 Study Date: 02/25/2022 12:41 PM Age: 86 yrs Gender: Male Patient Location: [facility] Reason For Study: Paroxysmal ventricular tachycardia (H) Ordering Physician: KE RENO Referring Physician: KE RENO Performed By: Lourdes Galvez BSA: 2.1 m2 Height: 73 in Weight: 185 lb HR: 57 BP: 124/70 mmHg Procedure Limited Echo Adult. Interpretation Summary The visual ejection fraction is 50-55%. Septal wall motion abnormality may refle ct pacemaker activation. A small area of the distal septum may be hypokinetic. There is a catheter/pacemaker lead seen in the right ventricle. Left Ventricle The left ventricle is normal in size. Th ere is normal left ventricular wall thickness. The visual ejection fraction is 50-55%. Grade I or early diastolic dysfunction. Septal wall motion abnormal ity may reflect pacemaker activation. Right Ventricle There is a catheter/pacemaker lead seen in the right ventricle. The right ventricle is normal in structure, functi on and size. Atria Normal left atrial size. Right atrial si ze is normal. Mitral Valve The mitral valve is normal in structure and function. There is trace mitral regurgitation. Tricuspid Valve The tricuspid valve is not well visualiz ed, but is grossly normal. Normal tricuspid valve. Aortic Valve The aortic valve is normal in structure and function. Pulmonic Valve Normal pulmonic valve. Vessels The aortic root is normal size. The infe rior vena cava is normal. Pericardium There is no pericardial effusion. Rhythm The rhythm was paced. MMode/2D Measurements & Calculations LVOT diam: 2.4 cm LVOT area: 4.7 cm2 Doppler Measurements & Calculations MV E max darian: 43.1 cm/sec MV A max darian: 70.3 cm/sec MV E/A: 0.61 MV dec slope: 153.5 cm/sec2 MV dec time: 0.28 sec LV V1 max P.1 mmHg LV V1 max: 72.4 cm/sec LV V1 VTI: 17.0 cm SV(LVOT): 79.3 ml SI(LVOT): 38.1 ml/m2 TR max darian: 237.7 cm/sec TR max P.6 mmHg E/E': 8.3 Peak E' Darian: 5.2 cm/sec Report approved by: Jazmine Maldonado 02/25 03:19 PM Ke Reno MD CV ECHO ORDERABLES PSA tumor marker [[id number]] (01/29/2022 7:59 AM CDT) P athologist Signature PSA Tumor <0.01 0.00 - 01/29/2022 [facility] Marker 4.00 ug/L 2:36 PM CDT Specimen Anatomical Collection Method / Collection Time Recei valarie Time (Source) Location / Volume Laterality Blood VENOUS BLOOD / Venipuncture / 01/29/2022 7:59 01/30/20 7:59 Unknown Unknown AM CDT AM CDT Herson Licea MD LAB - BLOOD ORDERABLES Performing Organization Address City/State/ZIP Code Phon e Number [facility] [place], [place] [phone] [place] [facility] [address] Lab (no room number, 1st floor of clinic) OX [facility]ATORY [place], [place] [phone] Clinic - [place] [address], [facility] [place] [facility] [address] Lab (no room number, 1st floor of clinic) from Last 3 Months Insurance Payer Benefit Plan / Subscriber ID Effective Phone Address T ype Group Dates [facility] [id number] 2021-Prese [phone] [address] [facility] [address] [place] [phone] Advance Directives For more information, please contact: [phone] Latest Code Status on File Code Status Date Activated Date Inactivated Comments Full Code 07/14/2016 2:57 PM Code Status History Code Status Date Activated Date Inactivated Comments Full Code 07/12/2016 1:12 PM 07/14/2016 2:57 PM Care Teams Roofing Applicator Relationship Specialty Start Date End Date Ina Sheriff, PCP - General Family Medicine 01/30/21 [facility] [address] [place] [address] Herson Licea MD Assigned Surgical Provider 02/02/21 [address] [facility] [address] Ke Reno, Assigned Heart and 12/13/21 MD Vascular Provider [address] [facility] [address] [place] [id number]
--- OUTSIDE RECORDS SUMMARY | 2022-04-27 07:33 | XMS_ITS | Encounter Summary ---
:1935 Author Organization [place] Address [address] [facility] [place] [address] Care Team Providers Name Role Phone Ina Sheriff MD Primary Care Provider [phone] Herson Licea MD Unavailable Ke Hernandes MD Unavailable Reason for Referral CV Testing (Routine) - Pending Review Specialty Diagnoses / Procedures Referred By Contact Refer red To Contact Diagnoses Cardiac pacemaker in situ Abdi Bailey MD Procedures Cardiac Device Check - Remote [address] [place] [address] Referral ID Status Reason Start Date Expiration Date Visits V isits Requested Authorized [id number] Pending 03/12/2022 03/12/2023 100 100 Review Encounter Details Date Type Department Care Team Description 03/12/2022 Orders Only [facility] Abdi Bailey MD Cardiac pacemaker in [facility] [place] [address] situ (Primary Dx) [address] [place] [address] [place] [phone] Social History Tobacco Use Types Packs/Day Years [...] have Coronavirus/COVID-19? documented as of this encounter Plan of Treatment Upcoming Encounters Date Type Specialty Care Team Description 06/18/2022 Ancillary Procedure Cardiology Abdi Bailey MD [address] [place] [id number] (Wo rk) Scheduled Orders Name Type Priority Associated Order Schedule Diagnoses Cardiac Device Implantable Cardiac Routine Cardiac pacemaker 1 00 Occurrences Check - Remote Device in situ starting 02/13 until 5 documented as of this encounter Visit Diagnoses Diagnosis Cardiac pacemaker in situ - Primary documented in this encounter Care Teams Mailing Machine Operator Relationship Specialty Start Date End Date Ina Sheriff, PCP - General Family Medicine 01/30/[address] [address] Herson Licea MD Assigned Surgical Provider 02/02/[address] [place] [address] [id number] Ke Hernandes, Assigned Heart and 12/13/21 MD Vascular Provider [address] [place] [id number] documented as of this encounter
--- OUTSIDE RECORDS SUMMARY | 2022-04-27 07:33 | XMS_ITS | Encounter Summary ---
:1935 Author Organization [place] Address [facility] [place] [address] Care Team Providers Name Role Phone Ina Sheriff MD Primary Care Provider [phone] Herson Licea MD Unavailable Ke Reno MD Unavailable Reason for Referral CV Testing (Routine) - Closed Specialty Diagnoses / Procedures Referred By Contact Refer red To Contact Diagnoses Paroxysmal ventricular tachycardia Ke Reno MD Procedures Echocardiogram Limited [facility] ECHO HEART XTHORACIC,LIMITED [facility] ECHO TRANSTHORACIC, LIMITED W CONTRAST [facility] ECHO TRANSTHORACIC, LIMITED W/O CONTRAST [facility] DOPPLER ECHO COLOR FLOW VELOCITY MAP [address] [place] [address] [facility] STATISTIC IV PUSH SINGL E INITIAL SUBSTANCE MI ECHO HEART XTHORACIC,LIMITED MI DOPPLER ECHO COLOR FLOW VELOCITY MAP MI ECHO HEART XTHORACIC,LIMITED MI ECHO HEART XTHORACIC,LIMITED HC ECHO TRANSTHORACIC, [place] [address] HC DOPPLER ECHO COLOR FLOW V ELOCITY MAP HC STATISTIC IV PUSH SINGLE INITIAL SUBSTANCE HC ECHO TRANSTHORACIC, LIMITED W CONTRAST HC ECHO TRANSTHORACIC, LIMITED W/O CONTRAST Referral ID Status Reason Start Date Expiration Date Visits Requ ested Visits Authorized [id number] Closed 12/10/2021 12/10/2022 1 1 Reason for Visit CV Testing (Routine) - Closed Specialty Diagnoses / Procedures Referred By Contact Refer red To Contact Diagnoses Paroxysmal ventricular tachycardia Ke Reno MD Procedures Echocardiogram Limited [facility] ECHO HEART XTHORACIC,LIMITED [facility] ECHO TRANSTHORACIC, LIMITED W CONTRAST [facility] ECHO TRANSTHORACIC, LIMITED W/O CONTRAST [facility] DOPPLER ECHO COLOR FLOW VELOCITY MAP [address] [place] [address] [facility] STATISTIC IV PUSH SINGL E INITIAL SUBSTANCE MI ECHO HEART XTHORACIC,LIMITED MI DOPPLER ECHO COLOR FLOW VELOCITY MAP MI ECHO HEART XTHORACIC,LIMITED MI ECHO HEART XTHORACIC,LIMITED HC ECHO TRANSTHORACIC, [place] [address] HC DOPPLER ECHO COLOR FLOW V ELOCITY MAP HC STATISTIC IV PUSH SINGLE INITIAL SUBSTANCE HC ECHO TRANSTHORACIC, LIMITED W CONTRAST HC ECHO TRANSTHORACIC, LIMITED W/O CONTRAST Referral ID Status Reason Start Date Expiration Date Visits Requ ested Visits Authorized [id number] Closed 12/10/2021 12/10/2022 1 1 Encounter Details Date Type Department Care Team Description 02/25/2022 Hospital Encounter [facility] Ke Reno [facility] MD Sergio ventricular Heart Care [address] tachycardia (H) [address] [facility] [address] [place] [address] [place], [place] [phone] [address] (Work) [phone] Social History Tobacco Use Types Packs/Day Years [...] Ancillary Procedure Cardiology Abdi Bailey MD [address] [facility] [address] [place] [id number] (Wo rk) documented as of this encounter Procedures Procedure Name Priority Date/Time Associated Diagnosis Comme nts ECHO LIMITED Routine 02/25/2022 2:16 PM Paroxysmal ventricular Results for this CDT tachycardia (H) procedure ar e in the results section. documented in this encounter Results ECHO LIMITED (02/25/2022 2:16 PM CDT) P athologist Signature LVEF 50-55% CARDIOLOGY RESULTS Anatomical Region Laterality Modality Echocardiography Specimen (Source) Anatomical Collection Method Collection Time Re ceived Time Location / / Volume Laterality 02/25/2022 12:41 PM CDT Narrative 02/25/2022 3:19 PM CDT [id number]^ROWDY^KE^[facility] Echocardiography Laboratory [address] [place] [address] Name: LALAMOLLY IGNACIO : 1935 Study Date: 02/25/2022 12:41 PM Age: 86 yrs Gender: Male Patient Location: [facility] Reason For Study: Paroxysmal ventricular tachycardia (H) [...] note might be different from the original. [id number]^ROWDY^KE^[facility] Echocardiography Laboratory [address] [place] [id number] Name: JANETH SEE : 1935 Study Date: 02/25/2022 12:41 PM Age: 86 yrs Gender: Male Patient Location: [facility] Reason For Study: Paroxysmal ventricular tachycardia (H) [...] PM Ke Reno MD CV ECHO ORDERABLES documented in this encounter Visit Diagnoses Diagnosis Paroxysmal ventricular tachycardia documented in this encounter Care Teams Horizontal Drill Operator Relationship Specialty Start Date End Date Ina Sheriff, PCP - General Family Medicine 01/30/[address] [address] Herson Licea MD Assigned Surgical Provider 02/02/21 [address] [facility] [address] [place], [place] [address] Ke Reno, Assigned Heart and 12/13/21 MD Vascular Provider [address] [place] [address] documented as of this encounter
--- OUTSIDE RECORDS SUMMARY | 2022-04-27 07:33 | XMS_ITS | Encounter Summary ---
:1935 Author Organization [place] Address [facility] [place] [address] Care Team Providers Name Role Phone Ina Sheriff MD Primary Care Provider [phone] Herson Licea MD Unavailable Ke Hernandes MD Unavailable Encounter Details Date Type Department Care Team Description 02/04/2022 Travel Social History Tobacco Use Types Packs/Day Years [...] in contact with No / Unsu re 02/04/2022 2:05 PM CDT someone who was confirmed or suspected to have Coronavirus/COVID-19? documented as of this encounter Plan of Treatment Upcoming Encounters Date Type Specialty Care Team Description 06/18/2022 Ancillary Procedure Cardiology Abdi Bailey MD [address] [facility] [address] [place] [address] (Wo rk) documented as of this encounter Visit Diagnoses Not on filedocumented in this encounter Care Teams Lumber Bearer Relationship Specialty Start Date End Date Ina Sheriff, PCP - General Family Medicine 01/30/21 [facility] [address] [place] [address] Herson Licea MD Assigned Surgical Provider 02/02/21 [address] [address] [place], [place] [address] Ke Hernandes, Assigned Heart and 12/13/21 MD Vascular Provider [address] [place] [id number] documented as of this encounter
--- OUTSIDE RECORDS SUMMARY | 2022-04-27 07:33 | XMS_ITS | Encounter Summary ---
:1935 Author Organization [place] Address [facility] [place] [address] Care Team Providers Name Role Phone Ina Sheriff MD Primary Care Provider [phone] Herson Licea MD Unavailable Ke Hernandes MD Unavailable Reason for Visit Diagnostic Imaging NM (Routine) - Authorized Specialty Diagnoses / Procedures Referred By Contact Refer red To Contact Radiology. Diagnoses NSVT (nonsustained ventricular tachycardia) Ke Hernandes MD Rh Nuclear Medicine Procedures NM Lexiscan stress test (nuc card) [address] [place] [place], [place] [phone] Fax: Referral ID Status Reason Start Date Expiration Date Visits V isits Requested Authorized [id number] Authorized 03/20/2022 05/05/2022 5 5 Encounter Details Date Type Department Care Team Description 03/20/2022 Hospital Encounter M [facility] Ke Hernandes MD [address] [facility] [address] [address] [place] [address] [phone] (Wo rk) Social History Tobacco Use Types [...] 06/18/2022 Ancillary Procedure Cardiology Abdi Bailey MD [address] [place] [address] (Wo rk) documented as of this encounter Procedures Procedure Name Priority Date/Time Associated Diagnosis Comme nts NM MPI WITH Routine 03/20/2022 10:25 AM NSVT (nonsustained Re sults for this LEXISCAN CDT ventricular procedure are i n tachycardia) the results section. documented in this encounter Visit Diagnoses Not on filedocumented in this encounter Administered Medications Inactive Administered Medications - up to 3 most recent administrations Medication Order MAR Action Action Date Dose Rate Site technetium Tc 99m tetrofosmin 2UD Given 03/20/2022 9:30 AM CDT 3 2 mCi study ([facility]) radioisotope injection 3-42 mCi 3-42 mCi, Intravenous, EVERY 2 HOURS, First dose on Wed03/20/22 at 0800, For 2 doses, Radioisotope, supplied by and administered by Nuclear Medicine. *HW* Given 03/20/2022 7:59 AM CDT 10.3 mCi documented in this encounter Care Teams Cardiovascular Tech Relationship Specialty Start Date End Date Ina Sheriff, PCP - General Family Medicine 01/30/21 [facility] [address] [place] [address] Herson Licea MD Assigned Surgical Provider 02/02/21 [address] [place] [address] Ke Hernandes, Assigned Heart and 12/13/21 MD Vascular Provider [address] [facility] [address] [place], [place] [address] documented as of this encounter
--- OUTSIDE RECORDS SUMMARY | 2022-04-27 07:33 | XMS_ITS | Encounter Summary ---
:1935 Author Organization [place] Address [facility] [place] [address] Care Team Providers Name Role Phone Ina Sheriff MD Primary Care Provider [phone] Herson Licea MD Unavailable Ke Hernandes MD Unavailable Reason for Visit Diagnostic Imaging NM (Routine) - Authorized Specialty Diagnoses / Procedures Referred By Contact Refer red To Contact Radiology. Diagnoses NSVT (nonsustained ventricular tachycardia) Ke Hernandes MD Rh Nuclear Medicine Procedures NM Lexiscan stress test (nuc card) [address] [address] [place], [place] [phone] Fax: Referral ID Status Reason Start Date Expiration Date Visits V isits Requested Authorized [id number] Authorized 03/20/2022 05/05/2022 5 5 Encounter Details Date Type Department Care Team Description 03/20/2022 Hospital Encounter M [facility] Ke Hernandes MD [address] [facility] [address] [address] [place] [address] [phone] (Wo rk) Social History Tobacco Use Types [...] 06/18/2022 Ancillary Procedure Cardiology Abdi Bailey MD [address] [place] [address] (Wo rk) documented as of this encounter Procedures Procedure Name Priority Date/Time Associated Diagnosis Comme nts NM MPI WITH Routine 03/20/2022 10:25 AM NSVT (nonsustained Re sults for this LEXISCAN CDT ventricular procedure are i n tachycardia) the results section. documented in this encounter Results NM Lexiscan stress test (nuc card) (03/20/2022 10:25 AM CDT) [facility] gist Method Time Signature Target HR [...] rest on 03/20/2022. Nuclear Study Quality The manager quality improvement images demonstrate d iaphragmatic attenuation. Final image [...] other segments are normal. Ke Hernandes MD IMG NM ORDERABLES documented in this encounter Visit Diagnoses Not on filedocumented in this encounter Care Teams Guest Services Relationship Specialty Start Date End Date Ina Sheriff, PCP - General Family Medicine 01/30/[address] [address] Herson Licea MD Assigned Surgical Provider 02/02/21 [address] [place], [place] [address] Ke Hernandes, Assigned Heart and 12/13/21 Vascular Provider [address] [facility] [address] [place], [place] [address] documented as of this encounter
--- OUTSIDE RECORDS SUMMARY | 2022-04-27 07:33 | XMS_ITS | Encounter Summary ---
:1935 Author Organization [place] Address [facility] [address] Care Team Providers Name Role Phone Ina Sheriff MD Primary Care Provider [phone] Herson Licea MD Unavailable Ke Hernandes MD Unavailable Reason for Visit CV Testing (Routine) - Pending Review Specialty Diagnoses / Procedures Referred By Contact Refer red To Contact Diagnoses Cardiac pacemaker in situ Abdi Bailey MD Procedures Cardiac Device Check - Remote [address] [place] [address] Referral ID Status Reason Start Date Expiration Date Visits V isits Requested Authorized [id number] Pending 10/15/2021 10/15/2022 1 1 Review Encounter Details Date Type Department Care Team Description 03/12/2022 Ancillary Procedure [facility] Abdi Bailey MD Cardiac pacemaker in [facility] [address] situ Heart Care [address] [place], [place] [address] [facility] [address] [place] [address] (Work) [phone] Social History Tobacco Use Types Packs/Day Years [...] Procedure Cardiology Abdi Bailey MD [address] [place] [address] (Wo rk) documented as of this encounter Procedures Procedure Name Priority Date/Time Associated Comments Diagnosis INTERROGATION DEVICE Routine 03/12/2022 1:40 PM Cardiac pacema ker Results for this EVAL REMOTE PACER UP CDT in situ procedu re are in TO 90 DAYS the results section. documented in this encounter Results INTERROGATION DEVICE EVAL REMOTE PACER UP TO 90 DAYS (03/12/2022 1:40 PM CDT) Component Value Ref Test Analysis Performed Pathologis t Range Method Time At Signature Date Time [id number] [employer] Interrogation Session Implantable Medtronic [employer] Pulse Generator Comic Book Writer Implantable [id number] [employer] Pulse Generator MRI Model Implantable [id number] [employer] Pulse Generator Serial Number Type Remote [employer] Interrogation Session Clinic Name [facility] [employer] Implantable Pacemaker [employer] Pulse Generator Type Implantable [id number] [employer] Pulse Generator Implant Date Implantable Lead Medtronic [employer]IC Comic Book Writer Implantable Lead 5076 CapSureFix MEDTRON IC Model Novus MRI SureScan Implantable Lead [id number] [employer] Serial Number Implantable Lead [id number] [employer]IC Implant Date Implantable Lead Bipolar Lead [employer] Polarity Type Implantable Lead UNKNOWN [employer] Location Detail 1 Implantable Lead Right Atrium [employer] Location Implantable Lead Medtronic [employer] Comic Book Writer Implantable Lead 5076 CapSureFix MEDTRON IC Model Novus MRI SureScan Implantable Lead [id number] [employer] Serial Number Implantable Lead [id number] MEDTRONIC [...] [employer]TRONIC Pacing Threshold Pulse Width Battery Date [id number] [employer] Time of Measurements Battery Status OK iVerse [employer] Battery JOB TRAINER 2.83 [employer] Trigger Battery 44 mo [employer] Remaining Longevity Battery Voltage 2.97 V [employer]IC Irving Statistic [id number] [employer] Date Time Start Irving Statistic [id number] [employer] Date Time End Irving Statistic 28.21 % [employer] RA Percent Paced Irving Statistic 99.76 % [employer] RV Percent Paced Irving Statistic 28.41 % [employer] AP BIOMEDICAL SERVICE ENGINEER Percent Irving Statistic 71.54 % [employer] BIOMEDICAL SERVICE ENGINEER Percent Irving Statistic 0 % [employer] AP VS Percent Irving Statistic 0.05 % [employer] VS Percent Atrial Tachy [id number] [employer] Statistic Date Time Start Atrial Tachy [id number] [employer] Statistic Date Time End Atrial Tachy 0 % [employer] Statistic AT/AF [place] Percent Episode 0 [employer]TR[employer] Statistic Recent Count Episode AT/AF [employer] Statistic Type Category Episode 0 [employer]IC Statistic Recent Count Episode SVT [employer]TR[employer]IC Statistic Type Category Episode 1 [employer] Statistic Recent Count Episode VT MEDTR[employer]IC Statistic Type Category Episode 0 [employer]IC Statistic Recent Count Episode VT [employer]TR[employer]IC Statistic Type Category Episode [id number] [employer] Statistic Recent Date Time Start Episode [id number] [employer] Statistic Recent Date Time End Episode [id number] [employer] Statistic Recent Date Time Start Episode [id number] [employer] Statistic Recent Date Time End Episode [id number] [employer] Statistic Recent Date Time Start Episode [id number] [employer]IC Statistic Recent Date Time End Episode [id number] [employer] Statistic Recent Date Time Start Episode [id number] [employer]IC Statistic Recent Date Time End Episode 1 [employer]IC Statistic Total Count Episode AT/AF [employer] Statistic Type Category Episode 0 [employer]TR[employer]IC Statistic Total Count Episode SVT MEDTR[employer]IC Statistic Type Category Episode 3 [employer]IC Statistic Total Count Episode VT [employer]TR[employer]IC Statistic Type Category Episode 0 MEDTRONIC Statistic Total Count Episode VT [employer]TR[employer]IC Statistic Type Category Episode [id number] [employer] Statistic Total Date Time Start Episode [id number] [employer] Statistic Total Date Time End Episode [id number] [employer]IC Statistic Total Date Time Start Episode [id number] [employer] Statistic Total Date Time End Episode [id number] [employer] Statistic Total Date Time Start Episode [id number] [employer] Statistic Total Date Time End Episode [id number] [employer] Statistic Total Date Time Start Episode [id number] [employer] Statistic Total Date Time End Episode 4 [employer] Identifier Episode Type VT [employer] Category Episode Date [id number] [employer] Time Episode Duration 3 s [employer] Anatomical Region Laterality Modality Other Specimen (Source) Anatomical Collection Method Collection Time Re ceived Time Location / / Volume Laterality 03/12/2022 11:19 AM CDT Narrative 03/19/2022 1:50 PM CDT Medtronic Advisa (D) Remote PPM Device Check AP: 38.5% BIOMEDICAL SERVICE ENGINEER: >99% Mode: DDD 60/130 Presenting Rhythm: /BIOMEDICAL SERVICE ENGINEER Heart Rate: adequate heart rates per his togram Sensing: stable Pacing Threshold: stable Impedance: stable Battery Status: 3.5 years Atrial Arrhythmia: none Ventricular Arrhythmia: 1 ventricular hi gh rate. EGM shows Vs>As for NSVT lasting 14 beats, rates 175-210bpm. Epis ode occurred 12/16/21 at 4:26 pm. No associated symptoms. EF 50-55% (2021). W ill notify Dr. Hernandes. Care Plan: F/u PPM Carelink q 3 [...] Abdi Bailey MD CV CARDIAC SERVICES ORDERABL ES documented in this encounter Visit Diagnoses Diagnosis Cardiac pacemaker in situ documented in this encounter Care Teams Dairy Equipment Mechanic Relationship Specialty Start Date End Date Ina Sheriff, PCP - General Family Medicine 01/30/21 [facility] [address] [place] [address] Herson Licea MD Assigned Surgical Provider 02/02/21 [address] [place] [address] Ke Hernandes, Assigned Heart and 12/13/21 MD Vascular Provider [address] [facility] [address] [place], [place] [address] documented as of this encounter
--- OUTSIDE RECORDS SUMMARY | 2022-04-27 07:33 | XMS_ITS | Encounter Summary ---
:1935 Author Organization [place] Address [address] [place] [address] Care Team Providers Name Role Phone Ina Sheriff MD Primary Care Provider [phone] Herson Licea MD Unavailable Ke Hernandes MD Unavailable Reason for Referral Diagnostic Imaging NM (Routine) - Authorized Specialty Diagnoses / Procedures Referred By Contact Refer red To Contact Radiology. Diagnoses NSVT (nonsustained ventricular tachycardia) eK Hernandes MD Rh Nuclear Medicine Procedures NM Lexiscan stress test (nuc card) [address] [facility] [address] [place], [place] [phone] Fax: Referral ID Status Reason Start Date Expiration Date Visits V isits Requested Authorized [id number] Authorized 03/20/2022 05/05/2022 5 5 Reason for Visit Reason Onset Date Comments pacemaker remote check 03/12/2022 Encounter Details Date Type Department Care Team Description 03/12/2022 Telephone [facility] Heather Sharif er remote check [facility] [address] [facility] [address] [place] [phone] Social History Tobacco Use Types Packs/Day Years [...] this encounter Miscellaneous Notes Telephone Encounter - Malika Singh RN - 03/17/2022 4:23 PM CDT Chani scan stress test ordered 03/20/22 Telephone Encounter - Liza Browne RN - 03/13/2022 3:57 PM CDT Images from the original note were not included. Ke Hernandes MD Dornfeld, Kayla 1 hour ago (2:15 PM) [place] Lets get a Lexiscan stress test. ??Ke Message text Received above response from Dr. Hernandes regarding NSVT episode logged and message routed by [employer]. Called and left message for patient notifying him of Dr. Hernandes's response and recommendation as outlined above. Order for Lexiscan stress test entered. Scheduling and device clinic phone numbers provided. TYSHAWN Paulino Telephone Encounter - Heather Sharif - 03/12/2022 1:58 PM CDT Images from the original note were not included. SONU [place] your pt did have another run of NSVT on his remote check today. EGM shows Vs>As for NSVT lasting 14 beats, rates 175-210bpm. Episode occurred 12/16/21 at 4:26 pm. No associated symptoms. EF 50-55%(2021).I know you had mentioned if NSVT recurs, you want want to consider a stress test. Did you want to move forward with this or continue to monitor? Thank you for your time! [employer] Advisa (D) Remote PPM Device Check AP: 38.5% CREATIVE DESIGNER: >99% Mode: DDD 60/130 Presenting Rhythm: /CREATIVE DESIGNER Heart Rate: adequate heart rates per histogram Sensing: stable Pacing Threshold: stable Impedance: stable Battery Status: 3.5 years Atrial Arrhythmia: none Ventricular Arrhythmia: 1 ventricular high rate. EGM shows Vs>As for NSVT lasting 14 beats, [id number]. Episode occurred 12/16/21 at 4:26 pm. No associated symptoms. EF 50-55% (2021). Will notify Dr. Hernandes. Care Plan: F/u PPM Carelink q 3 months. Pt due to see cardiology 11/2022. Gave results over the phoneto pt. NANCY Garland I have reviewed and interpreted the device interrogation, settings, programming and nurse's summary.The device is functioning within normal device parameters. I agree with the current findings, assessment and plan. documented in this encounter Plan of Treatment Upcoming Encounters Date Type Specialty Care Team Description 06/18/2022 Ancillary Procedure Cardiology Abdi Bailey MD [address] [place] [id number] (Wo rk) documented as of this encounter Results NM Lexiscan stress test (nuc card) (03/20/2022 10:25 AM CDT) [facility] gist Method Time Signature Target HR [...] 03/20/2022. Nuclear Study Quality The quality assurance inspector images demonstrate d iaphragmatic attenuation. Final image [...] apex. All other segments are normal. Ke Richardson Cecilio MD IMG NM ORDERABLES documented in this encounter Visit Diagnoses Diagnosis NSVT (nonsustained ventricular tachycard ia) - Primary Paroxysmal ventricular tachycardia NSVT (nonsustained ventricular tachycard ia) Paroxysmal ventricular tachycardia documented in this encounter Care Teams Bank Teller Machine Mechanic Relationship Specialty Start Date End Date Ina Sheriff, PCP - General Family Medicine 01/30/[address] [address] Herson Licea MD Assigned Surgical Provider 02/02/21 [address] [place] [address] Ke Hernandes, Assigned Heart and 12/13/21 Vascular Provider [address] [facility] [address] [place], [place] [address] documented as of this encounter
--- OUTSIDE RECORDS SUMMARY | 2022-04-27 07:33 | XMS_ITS | Encounter Summary ---
:1935 Author Organization [place] Address [address] [place] [address] Care Team Providers Name Role Phone Ina Sheriff MD Primary Care Provider [phone] Herson Licea MD Unavailable Ke Hernandes MD Unavailable Encounter Details Date Type Department Care Team Description 03/17/2022 Telephone [facility] Valentina Aguilar RN [facility] [address] [facility] [address] [place] [address] Social History Tobacco Use Types Packs/Day Years [...] this encounter Miscellaneous Notes Telephone Encounter - Jo Aguilar RN - 03/17/2022 4:22 PM CDT Pt called wondering what the stress test is, how they preform it and how long it takes. Informed pt of typical lexiscan stress test. Assured he was given instructions for med holds, NPO status and no caffeine. Pt confirms he did receive this information. TYSHAWN Llanos documented in this encounter Plan of Treatment Upcoming Encounters Date Type Specialty Care Team Description 06/18/2022 Ancillary Procedure Cardiology Abdi Bailey MD [address] [place] [id number] (Wo rk) documented as of this encounter Visit Diagnoses Not on filedocumented in this encounter Care Teams Pmo Consultant Relationship Specialty Start Date End Date Ina Sheriff, PCP - General Family Medicine 01/30/21 [facility] [address] [place] [address] Herson Licea MD Assigned Surgical Provider 02/02/[address] [place] [id number] Ke Hernandes, Assigned Heart and 12/13/21 MD Vascular Provider [address] [facility] [address] [place], [place] [address] documented as of this encounter
--- OUTSIDE RECORDS SUMMARY | 2022-04-27 07:33 | XMS_ITS | Encounter Summary ---
:1935 Author Organization [place] Address [facility] [place] [address] Care Team Providers Name Role Phone Ina Sehriff MD Primary Care Provider [phone] Herson Licea MD Unavailable Ke Hernandes MD Unavailable Encounter Details Date Type Department Care Team Description 02/25/2022 Travel Social History Tobacco Use Types Packs/Day [...] Ancillary Procedure Cardiology Abdi Bailey MD [address] [facility] [address] [place] [address] (Wo rk) documented as of this encounter Visit Diagnoses Not on filedocumented in this encounter Care Teams Curing Finisher Relationship Specialty Start Date End Date Ina Sheriff, PCP - General Family Medicine 01/30/21 [facility] [address] [place] [address] Herson Licea MD Assigned Surgical Provider 02/02/21 [address] [facility] [address] [place], [place] [address] Ke Hernandes, Assigned Heart and 12/13/21 MD Vascular Provider [address] [place] [id number] documented as of this encounter
--- OUTSIDE RECORDS SUMMARY | 2022-04-27 07:33 | XMS_ITS | Encounter Summary ---
:1935 Author Organization [place] Address [facility] [place] [address] Care Team Providers Name Role Phone Ina Sheriff MD Primary Care Provider [phone] Herson Licea MD Unavailable Ke Hernandes MD Unavailable Encounter Details Date Type Department Care Team Description 03/20/2022 Travel Social History Tobacco Use Types Packs/Day [...] Procedure Cardiology Abdi Bailey MD [address] [facility] [address] [place] [address] (Wo rk) documented as of this encounter Visit Diagnoses Not on filedocumented in this encounter Care Teams Subgrade Tester Relationship Specialty Start Date End Date Ina Sheriff, PCP - General Family Medicine 01/30/21 [facility] [address] [place] [address] Herson Licea MD Assigned Surgical Provider 02/02/21 [address] [facility] [address] [place], [place] [address] Ke Hernandes, Assigned Heart and 12/13/21 MD Vascular Provider [address] [place] [id number] documented as of this encounter
--- OUTSIDE RECORDS SUMMARY | 2022-04-27 07:33 | XMS_ITS | Encounter Summary ---
:1935 Author Organization [place] Address [address] [place] [address] Care Team Providers Name Role Phone Ina Sheriff MD Primary Care Provider [phone] Herson Licea MD Unavailable Ke Hernandes MD Unavailable Reason for Visit Reason Comments Prostate Cancer Encounter Details Date Type Department Care Team Description 02/04/2022 Office Visit [facility] Herson Licea Prostate cancer (H) Urology Clinic MD [place] (Primary Dx) [address] [address] [address] [place] [address] Social History Tobacco Use Types Packs/Day Years [...] have Coronavirus/COVID-19? documented as of this encounter Last Filed Vital Signs Vital Sign Reading Time Taken Comments Blood Pressure 124/70 02/04/2022 2:09 PM CDT Pulse - - Temperature - - Respiratory Rate - - Oxygen Saturation - - Inhaled Oxygen Concentration - - Weight 83.9 kg (185 lb) 02/04/2022 2:09 PM CDT Height 185.4 cm (6' 1) 02/04/2022 2:09 PM CDT Body Mass Index 24.41 02/04/2022 2:09 PM CDT documented in this encounter Patient Instructions Patient InstructionsHerson Licea MD - 02/04/2022 2:15 PM CDT Follow-up in 1 year with PSA documented in this encounter Progress Notes Herson Licea MD - 02/04/2022 2:15 PM CDT CHIEF COMPLAINT It was my pleasure to see Humberto Siddiqui who is a 86 year old male for follow-up of prostate cancer. HPI: Humberto Siddiqui is a 86 year old male being seen for follow-up with PSA. Duration of problem: 14 years Previous treatments: EBRT with hormonal treatment was on Casodex and we had stopped it last year stopped last year Doing well Does have some nocturia but is not significantly bothered No complaints at the moment Exam: BP 124/70 Ht 1.854 m (6' 1) Wt 83.9 kg (185 lb) BMI 24.41 kg/m?? General: age-appropriate appearing male in NAD sitting in an exam chair Resp: no respiratory distress CV: heart rate regular Abdomen: Degree of obesity is mild. Abdomen is soft and nontender. No organomegaly. Neuro: grossly non focal. Normal reflexes Motor: excellent strength throughout Review of Imaging: The following imaging exams were independently viewed and interpreted by me and discussed with patient: Review of Labs: The following labs were reviewed by me and discussed with the patient: PSA: Normal, less than 0.01 ug/L Assessment & Plan Prostate cancer (H) PSA still remains undetectable even after stopping the Casodex Continue PSA monitoring on a yearly basis See us in a year - PSA tumor marker [[id number]] Herson Licea MD [facility] [place] Additional Billing and Coding Information: Review of external notes as documented above Review of the result(s) of each unique test - PSA Independent interpretation of a test performed by another physician/other qualified health critical care unit nurse (not separately reported) - Discussion of management or test interpretation with external physician/other qualified healthcare professional/appropriate source - Diagnosis or treatment significantly limited by social determinants of health - 10 minutes spent on the date of the encounter doing chart review, review of test results, interpretation of tests, patient visit and documentation documented in this encounter Nursing Notes Shae Hawley EMT - 02/04/2022 2:15 PM CDT Chief Complaint Patient presents with ??? Prostate Cancer Patient states no change in urination since last visit. JACQUIE Farris documented in this encounter Plan of Treatment Upcoming Encounters Date Type Specialty Care Team Description 06/18/2022 Ancillary Procedure Cardiology Abdi Bailey MD [address] [place], [place] [phone] (Wo rk) Scheduled Orders Name Type Priority Associated Diagnoses Order S chedule PSA tumor marker [[id number]] Lab Routine Prostate cance r (H) Ordered: 02/04/2022 documented as of this encounter Visit Diagnoses Diagnosis Prostate cancer (H) - Primary Malignant neoplasm of prostate documented in this encounter Care Teams Bed Bug Exterminator Relationship Specialty Start Date End Date Ina Sheriff, PCP - General Family Medicine 01/30/21 [facility] [address] [place] [address] Herson Licea MD Assigned Surgical Provider 02/02/[address] [place] [phone] Ke Hernandes, Assigned Heart and 12/13/21 Vascular Provider [address] [place] [address] documented as of this encounter
--- OUTSIDE RECORDS SUMMARY | 2022-04-27 07:33 | XMS_ITS | Encounter Summary ---
:1935 Author Organization [place] Address [address] [place] [address] Care Team Providers Name Role Phone Ina Sheriff MD Primary Care Provider [phone] Herson Licea MD Unavailable Ke Hernandes MD Unavailable Encounter Details Date Type Department Care Team Description 03/27/2022 [facility] Valentina Aguilar RN [facility] Heart [place] [id number] [place] [address] Social History Tobacco Use Types [...] Telephone Encounter - Jo Aguilar RN - 03/27/2022 5:18 PM CDT Pt updated on results and plan of care. Letter sent to pt with results as well.. BJORN/RN Telephone Encounter - Jo Aguilar RN - 03/27/2022 5:18 PM CDT ----- Message from Kerry Connors RN sent at 03/23/2022 12:07 PM CDT ----- ----- Message ----- From: Ke Hernandes MD Sent: 03/20/2022 4:47 PM CDT To: [facility] Heart Ep Nurse Stress test showed perfusion defect in the inferior wall but no presence of ischemia. Echo showed normal LV function. We will continue monitoring no sustained VT. Please update patient results and plan. Ke documented in this encounter Plan of Treatment Upcoming Encounters Date Type Specialty Care Team Description 06/18/2022 Ancillary Procedure Cardiology Abdi Bailey MD [address] [place] [id number] (Wo rk) documented as of this encounter Visit Diagnoses Not on filedocumented in this encounter Care Teams Sheet Rocker Relationship Specialty Start Date End Date Ina Sheriff, PCP - General Family Medicine 01/30/21 [facility] [address] [place] [address] Herson Licea MD Assigned Surgical Provider 02/02/[address] [place] [id number] Ke Hernandes, Assigned Heart and 12/13/21 MD Vascular Provider [address] [place], [place] [address] documented as of this encounter
--- OUTSIDE RECORDS SUMMARY | 2022-04-27 07:33 | XMS_ITS | Encounter Summary ---
:1935 Author Organization [place] Address [facility] [place] [address] Care Team Providers Name Role Phone Ina Sheriff MD Primary Care Provider [phone] Herson Licea MD Unavailable Ke Hernandes MD Unavailable Reason for Visit Diagnostic Imaging NM (Routine) - Authorized Specialty Diagnoses / Procedures Referred By Contact Refer red To Contact Radiology. Diagnoses NSVT (nonsustained ventricular tachycardia) Ke Hernandes MD Rh Nuclear Medicine Procedures NM Lexiscan stress test (nuc card) [address] [place], [place] [phone] Fax: Referral ID Status Reason Start Date Expiration Date Visits V isits Requested Authorized [id number] Authorized 03/20/2022 05/05/2022 5 5 Encounter Details Date Type Department Care Team Description 03/20/2022 Hospital Encounter M [facility] Ke Hernandes MD [address] [facility] [address] [address] [place] [address] [phone] (Wo rk) Social History Tobacco Use Types [...] 06/18/2022 Ancillary Procedure Cardiology Abdi Bailey MD [address] [place] [address] (Wo rk) documented as of this encounter Procedures Procedure Name Priority Date/Time Associated Diagnosis Comme nts NM MPI WITH Routine 03/20/2022 10:25 AM NSVT (nonsustained Re sults for this LEXISCAN CDT ventricular procedure are i n tachycardia) the results section. documented in this encounter Results NM Lexiscan stress test (nuc card) (03/20/2022 10:25 AM CDT) [facility] gist Method Time Signature Target HR [...] rest on 03/20/2022. Nuclear Study Quality The manufacturing quality manager images demonstrate d iaphragmatic attenuation. Final image [...] on filedocumented in this encounter Care Teams Microfilm Technician Relationship Specialty Start Date End Date Ina Sheriff, PCP - General Family Medicine 01/30/[address] [address] Herson Licea MD Assigned Surgical Provider 02/02/21 [address] [place], [place] [phone] Ke Hernandes, Assigned Heart and 12/13/21 Vascular Provider [address] [facility] [address] [place], [place] [address] documented as of this encounter
--- OUTSIDE RECORDS SUMMARY | 2022-04-27 07:34 | XMS_ITS | Encounter Summary ---
:1935 Author Organization [place] Address [address] [facility] [place] [address] Care Team Providers Name Role Phone Ke Hernandes MD Unavailable Ina Sheriff MD Primary Care Provider [phone] Herson Licea MD Unavailable Reason for Visit CV Testing (Routine) - Closed Specialty Diagnoses / Procedures Referred By Contact Refer red To Contact Diagnoses Cardiac pacemaker in situ Atrioventricular block, complete (H) Abdi Bailey MD Procedures Cardiac Device Check - Remote (Standing ORD 4 count) [address] [place] [address] Referral ID Status Reason Start Date Expiration Date Visits Requ ested Visits Authorized [id number] Closed 04/16/2021 04/16/2022 1 1 Encounter Details Date Type Department Care Team Description 07/16/2021 Ancillary [facility] Abdi Bailey MD Cardiac pacemaker in situ; Procedure [facility] [address] Atriovent ricular block, complete (H) [address] [facility] [address] [address] [place] [phone] [address] (Work) [phone] Social History Tobacco Use Types Packs/Day Years Used Date Smoking Tobacco: Former Cigarettes Quit : 02/29/1980 Smokeless Tobacco: Never Alcohol Use Standard Drinks/Week Comments Yes 0 (1 standard drink = 0.6 oz pure alcoho l) occasionally Sex Assigned at Date Recorded Not on file documented as of this encounter Plan of Treatment Upcoming Encounters Date Type Specialty Care Team Description 06/18/2022 Ancillary Procedure Cardiology Abdi Bailey MD [address] [place] [address] (Wo rk) documented as of this encounter Procedures Procedure Name Priority Date/Time Associated Comments Diagnosis INTERROGATION DEVICE Routine 07/16/2021 2:45 PM Cardiac pacema ker Results for this EVAL REMOTE PACER UP PEDIATRIC NP in situ procedure are in TO 90 DAYS Atrioventricular the results block, complete (H) section. documented in this encounter Results INTERROGATION DEVICE EVAL REMOTE PACER UP TO 90 DAYS (07/16/2021 2:45 PM PEDIATRIC NP) Component Value Ref Test Analysis Performed Pathologis t Range Method Time At Signature Date Time [id number] [employer]TR[employer] Interrogation Session Implantable Medtronic MEDTRONIC Pulse Generator Gusset Edger Implantable [id number] Advisa MEDTRONIC Pulse Generator MRI Model Implantable [id number] MEDTRONIC Pulse Generator Serial Number Type Remote MEDTRONIC Interrogation Session Clinic Name [facility] MEDTRONIC Implantable Pacemaker MEDTRONIC Pulse Generator Type Implantable [id number] MEDTRONIC Pulse Generator Implant Date Implantable Lead Medtronic MEDTRONIC Gusset Edger Implantable Lead 5076 CapSureFix MEDTRON IC Model Novus MRI SureScan Implantable Lead [id number] MEDTRONIC Serial Number Implantable Lead [id number] MEDTRONIC Implant Date Implantable Lead Bipolar Lead MEDTRONIC Polarity Type Implantable Lead UNKNOWN MEDTRONIC Location Detail 1 Implantable Lead Right Atrium MEDTRONIC Location Implantable Lead Medtronic MEDTRONIC Gusset Edger Implantable Lead 5076 CapSureFix MEDTRON IC Model Novus MRI SureScan Implantable Lead [id number] MEDTRONIC Serial Number Implantable Lead [id number] MEDTRONIC [...] 380 ohm MEDTRONIC Impedance Value Lead Channel 361 ohm MEDTRONIC Impedance Value Lead Channel 2.375 mV MEDTRONIC Sensing Intrinsic Amplitude Lead Channel 2.375 mV MEDTRONIC Sensing Intrinsic Amplitude Lead Channel 0.375 V MEDTRONIC Pacing Threshold Amplitude Lead Channel 0.4 ms MEDTRONIC Pacing Threshold Pulse Width Lead Channel 494 ohm MEDTRONIC Impedance Value Lead Channel 437 ohm MEDTRONIC Impedance Value Lead Channel 5.875 mV MEDTRONIC Sensing Intrinsic Amplitude Lead Channel 5.875 mV MEDTRONIC Sensing Intrinsic Amplitude Lead Channel 0.625 V MEDTRONIC Pacing Threshold Amplitude Lead Channel 0.4 ms MEDTRONIC Pacing Threshold Pulse Width Battery Date [id number] [email or web address].[email or web address] Time of Measurements Battery Status OK MEDTRONIC Battery LANGUAGE PATHOLOGIST 2.83 MEDTRONIC Trigger Battery 50 mo MEDTRONIC Remaining Longevity Battery Voltage 2.99 V MEDTRONIC Irving Statistic [id number] MEDTRONIC Date Time Start Irving Statistic [id number] MEDTRONIC Date Time End Irving Statistic 28.18 % MEDTRONIC RA Percent Paced Irving Statistic 99.3 % MEDTRONIC RV Percent Paced Irving Statistic 28.3 % [employer] AP CLINICAL NURSING DIRECTOR Percent Irving Statistic 71.45 % [employer] CLINICAL NURSING DIRECTOR Percent Irving Statistic 0 % [employer]TRONIC AP VS Percent Irving Statistic 0.24 % [employer]IC VS Percent Atrial Tachy [id number] MEDTRONIC Statistic Date Time Start Atrial Tachy [id number] MEDTRONIC Statistic Date Time End Atrial Tachy 0 % MEDTRONIC Statistic AT/AF [place] Percent Episode 0 MEDTRONIC Statistic Recent Count Episode AT/AF MEDTRONIC Statistic Type Category Episode 0 MEDTRONIC Statistic Recent Count Episode SVT MEDTRONIC Statistic Type Category Episode 0 MEDTRONIC Statistic Recent Count Episode VT MEDTRONIC Statistic Type Category Episode 0 MEDTRONIC Statistic Recent Count Episode VT MEDTRONIC Statistic Type Category Episode [id number] MEDTRONIC Statistic Recent Date Time Start Episode [id number] MEDTRONIC Statistic Recent Date Time End Episode [id number] MEDTRONIC Statistic Recent Date Time Start Episode [id number] MEDTRONIC Statistic Recent Date Time End Episode [id number] MEDTRONIC Statistic Recent Date Time Start Episode [id number] MEDTRONIC Statistic Recent Date Time End Episode [id number] MEDTRONIC Statistic Recent Date Time Start Episode [id number] MEDTRONIC Statistic Recent Date Time End Episode 1 MEDTRONIC Statistic Total Count Episode AT/AF MEDTRONIC Statistic Type Category Episode 0 MEDTRONIC Statistic Total Count Episode SVT MEDTRONIC Statistic Type Category Episode 1 MEDTRONIC Statistic Total Count Episode VT MEDTRONIC Statistic Type Category Episode 0 MEDTRONIC Statistic Total Count Episode VT MEDTRONIC Statistic Type Category Episode [id number] MEDTRONIC Statistic Total Date Time Start Episode [id number] MEDTRONIC Statistic Total Date Time End Episode [id number] MEDTRONIC Statistic Total Date Time Start Episode [id number] MEDTRONIC Statistic Total Date Time End Episode [id number] MEDTRONIC Statistic Total Date Time Start Episode [id number] MEDTRONIC Statistic Total Date Time End Episode [id number] MEDTRONIC Statistic Total Date Time Start Episode [id number] MEDTRONIC Statistic Total Date Time End Anatomical Region Laterality Modality Other Specimen (Source) Anatomical Collection Method Collection Time Re ceived Time Location / / Volume Laterality 07/16/2021 11:49 AM PEDIATRIC NP Narrative 07/17/2021 5:45 PM PEDIATRIC NP Medtronic Advisa (D) Remote PPM Device Check AP: 28% CLINICAL NURSING DIRECTOR: >99% Mode: DDD 60/130 Presenting Rhythm: /CLINICAL NURSING DIRECTOR Heart Rate: adequate heart rates per his togram Sensing: stable Pacing Threshold: stable Impedance: stable Battery Status: 3-5 years Atrial Arrhythmia: 1 brief mode switch e pisode, no EGM available Ventricular Arrhythmia: none Care Plan: F/u PPM Carelink q 3 months. Pt overdue to see cardiology, transferred to scheduling. Gave results over the phone to pt. CIRILO HaddadT I have reviewed and interpreted the colby ce interrogation, settings, programming and nurse's summary. The dev ice is functioning within normal device parameters. I agree with the curr ent findings, assessment and plan. Abdi Bailey MD CV CARDIAC SERVICES ORDERABL ES documented in this encounter Visit Diagnoses Diagnosis Cardiac pacemaker in situ Atrioventricular block, complete (H) Atrioventricular block, complete documented in this encounter Care Teams Machine Rebuilder Relationship Specialty Start Date End Date Ina Sheriff, PCP - General Family Medicine 01/30/21 [facility] [address] [place] [address] Ke Hernandes, Assigned Heart and 04/28/20 10/11/21 Vascular Provider [address] [facility] [address] [place], [place] [address] Herson Licea MD Assigned Surgical Provider 02/02/[address] [place] [address] documented as of this encounter
--- OUTSIDE RECORDS SUMMARY | 2022-04-27 07:34 | XMS_ITS | Encounter Summary ---
:1935 Author Organization [place] Address [address] [facility] [address] Care Team Providers Name Role Phone Ina Sheriff MD Primary Care Provider [phone] Herson Licea MD Unavailable Reason for Visit CV Testing (Routine) - Closed Specialty Diagnoses / Procedures Referred By Contact Refer red To Contact Diagnoses Cardiac pacemaker in situ Atrioventricular block, complete (H) Abdi Bailey MD Procedures Cardiac Device Check - Remote (Standing ORD 4 count) [address] [place] [address] Referral ID Status Reason Start Date Expiration Date Visits Requ ested Visits Authorized [id number] Closed 04/16/2021 04/16/2022 1 1 Encounter Details Date Type Department Care Team Description 10/15/2021 Ancillary [facility] Abdi Bailey MD Cardiac pacemaker in situ; Procedure [facility] [address] Atriovent ricular block, complete (H) [address] [place] [address] [address] [place], [place] [phone] (Work) [phone] Social History Tobacco Use Types Packs/Day Years [...] Bailey MD [address] [place], [place] [address] (Wo rk) documented as of this encounter Procedures Procedure Name Priority Date/Time Associated Comments Diagnosis INTERROGATION DEVICE Routine 10/15/2021 1:30 PM Cardiac pacema ker Results for this EVAL REMOTE PACER UP CDT in situ procedure are in TO 90 DAYS Atrioventricular the results block, complete (H) section. documented in this encounter Results INTERROGATION DEVICE EVAL REMOTE PACER UP TO 90 DAYS (10/15/2021 1:30 PM CDT) Component Value Ref Test Analysis Performed Pathologis t Range Method Time At Signature Date Time [id number] [employer]TRONIC Interrogation Session Implantable Medtronic MEDTRONIC Pulse Generator [place] Marshal Implantable [id number] Advisa MEDTRONIC Pulse Generator MRI Model Implantable [id number] MEDTRONIC Pulse Generator Serial Number Type Remote MEDTRONIC Interrogation Session Clinic Name [facility] MEDTRONIC Implantable Pacemaker MEDTRONIC Pulse Generator Type Implantable [id number] MEDTRONIC Pulse Generator Implant Date Implantable Lead Medtronic MEDTRONIC [place] Marshal Implantable Lead 5076 CapSureFix MEDTRON IC Model Novus MRI SureScan Implantable Lead [id number] MEDTRONIC Serial Number Implantable Lead [id number] MEDTRONIC Implant Date Implantable Lead Bipolar Lead MEDTRONIC Polarity Type Implantable Lead UNKNOWN MEDTRONIC Location Detail 1 Implantable Lead Right Atrium MEDTRONIC Location Implantable Lead Medtronic MEDTRONIC [place] Marshal Implantable Lead 5076 CapSureFix MEDTRON IC Model Novus MRI SureScan Implantable Lead [id number] MEDTRONIC Serial Number Implantable Lead [id number] MEDTRONIC [...] 350 ms MEDTRONIC Detection Interval Lead Channel 399 ohm MEDTRONIC Impedance Value Lead Channel 380 ohm MEDTRONIC Impedance Value Lead Channel 2.25 mV MEDTRONIC Sensing Intrinsic Amplitude Lead Channel 2.25 mV MEDTRONIC Sensing Intrinsic Amplitude Lead Channel 0.375 V MEDTRONIC Pacing Threshold Amplitude Lead Channel 0.4 ms MEDTRONIC Pacing Threshold Pulse Width Lead Channel 513 ohm MEDTRONIC Impedance Value Lead Channel 475 ohm MEDTRONIC Impedance Value Lead Channel 6 mV MEDTRONIC Sensing Intrinsic Amplitude Lead Channel 6 mV MEDTRONIC Sensing Intrinsic Amplitude Lead Channel 0.75 V MEDTRONIC Pacing Threshold Amplitude Lead Channel 0.4 ms MEDTRONIC Pacing Threshold Pulse Width Battery Date [id number] CheckPhone TechnologiesTRONIC Time of Measurements Battery Status OK MEDTRONIC Battery 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 2.83 MEDTRONIC Trigger Battery 49 mo MEDTRONIC Remaining Longevity Battery Voltage 2.98 V MEDTRONIC Irving Statistic [id number] MEDTRONIC Date Time Start Irving Statistic [id number] MEDTRONIC Date Time End Irving Statistic 30.38 % MEDTRONIC RA Percent Paced Irving Statistic 99.53 % MEDTRONIC RV Percent Paced Irving Statistic 30.55 % [employer]IC AP EDITOR FARM JOURNAL Percent Irving Statistic 69.33 % [employer]IC EDITOR FARM JOURNAL Percent Irving Statistic 0 % MEDTRONIC AP VS Percent Irving Statistic 0.12 % MEDTRONIC VS Percent Atrial Tachy [id number] MEDTRONIC Statistic Date Time Start Atrial Tachy [id number] MEDTRONIC Statistic Date Time End Atrial Tachy 0 % MEDTRONIC Statistic AT/AF Mobile Percent Episode 0 MEDTRONIC Statistic Recent Count Episode AT/AF MEDTRONIC Statistic Type Category Episode 0 MEDTRONIC Statistic Recent Count Episode SVT MEDTRONIC Statistic Type Category Episode 1 MEDTRONIC Statistic Recent Count Episode VT MEDTRONIC Statistic Type Category Episode 0 MEDTRONIC Statistic Recent Count Episode VT MEDTRONIC Statistic Type Category Episode [id number] MEDTRONIC Statistic Recent Date Time Start Episode [id number] MEDTRONIC Statistic Recent Date Time End Episode [id number] MEDTRONIC Statistic Recent Date Time Start Episode [id number] MEDTRONIC Statistic Recent Date Time End Episode [id number] MEDTRONIC Statistic Recent Date Time Start Episode [id number] MEDTRONIC Statistic Recent Date Time End Episode [id number] MEDTRONIC Statistic Recent Date Time Start Episode [id number] MEDTRONIC Statistic Recent Date Time End Episode 1 MEDTRONIC Statistic Total Count Episode AT/AF MEDTRONIC Statistic Type Category Episode 0 MEDTRONIC Statistic Total Count Episode SVT MEDTRONIC Statistic Type Category Episode 2 MEDTRONIC Statistic Total Count Episode VT MEDTRONIC Statistic Type Category Episode 0 MEDTRONIC Statistic Total Count Episode VT MEDTRONIC Statistic Type Category Episode [id number] MEDTRONIC Statistic Total Date Time Start Episode [id number] MEDTRONIC Statistic Total Date Time End Episode [id number] MEDTRONIC Statistic Total Date Time Start Episode [id number] MEDTRONIC Statistic Total Date Time End Episode [id number] MEDTRONIC Statistic Total Date Time Start Episode [id number] MEDTRONIC Statistic Total Date Time End Episode [id number] MEDTRONIC Statistic Total Date Time Start Episode [id number] MEDTRONIC Statistic Total Date Time End Episode 3 MEDTRONIC Identifier Episode Type VT MEDTRONIC Category Episode Date [id number] MEDTRONIC Time Episode Duration 2 s MEDTRONIC Anatomical Region Laterality Modality Other Specimen (Source) Anatomical Collection Method Collection Time Re ceived Time Location / / Volume Laterality 10/15/2021 12:29 PM CDT Narrative 10/29/2021 4:12 PM CDT Medtronic Advisa (D) Remote PPM Device Check AP: 30.5% EDITOR FARM JOURNAL: >99% Mode: DDD 60/130 Presenting Rhythm: /EDITOR FARM JOURNAL Heart Rate: adequate heart rates per his togram Sensing: stable Pacing Threshold: stable Impedance: stable Battery Status: 3-5 years Atrial Arrhythmia: none Ventricular Arrhythmia: 1 ventricular hi gh rate. EGM shows Vs>As for NSVT lasting 15 beats, rates 120-185bpm. Epis ode occurred 08/30/21 at 533am. No associated symptoms. EF 55-60% (2017). W ill notify Dr. Hernandes of findings. Care Plan: F/u PPM Carelink q 3 months. Pt overdue to see cardiology, transferred to scheduling. Gave results over the phone to pt. Catie CVT I have reviewed and interpreted the [...] complete documented in this encounter Care Teams Corporate Concierge Relationship Specialty Start Date End Date Ina Sheriff, PCP - General Family Medicine 01/30/21 [facility] [address] [place] [address] Herson Licea MD Assigned Surgical Provider 02/02/[address] [place] [address] documented as of this encounter
--- OUTSIDE RECORDS SUMMARY | 2022-04-27 07:34 | XMS_ITS | Encounter Summary ---
:1935 Author Organization [place] Address [facility] [place] [address] Care Team Providers Name Role Phone Ina Sheriff MD Primary Care Provider [phone] Herson Licea MD Unavailable Ke Hernandes MD Unavailable Encounter Details Date Type Department Care Team Description 01/29/2022 Travel Social History Tobacco Use Types Packs/Day [...] in contact with No / Unsu re 01/29/2022 7:54 AM CDT someone who was confirmed or suspected to have Coronavirus/COVID-19? documented as of this encounter Plan of Treatment Upcoming Encounters Date Type Specialty Care Team Description 06/18/2022 Ancillary Procedure Cardiology Abdi Bailey MD [address] [facility] [address] [place] [address] (Wo rk) documented as of this encounter Visit Diagnoses Not on filedocumented in this encounter Care Teams Solar Panel Technician Relationship Specialty Start Date End Date Ina Sheriff, PCP - General Family Medicine 01/30/21 [facility] [address] [place] [address] Herson Licea MD Assigned Surgical Provider 02/02/[address] [place], [place] [address] Ke Hernandes, Assigned Heart and 12/13/21 MD Vascular Provider [address] [place] [id number] documented as of this encounter
--- OUTSIDE RECORDS SUMMARY | 2022-04-27 07:34 | XMS_ITS | Encounter Summary ---
:1935 Author Organization [place] Address [address] [place] [address] Care Team Providers Name Role Phone Ina Sheriff MD Primary Care Provider [phone] Herson Licea MD Unavailable Ke Hernandes MD Unavailable Encounter Details Date Type Department Care Team Description 01/26/2022 Documentation Only [facility] Herson Licea ar, Clinic [facility] [address] [facility] [address] [place] [address] [phone] Social History Tobacco Use Types Packs/Day Years [...] have Coronavirus/COVID-19? documented as of this encounter Progress Notes Jade Parkinson - 01/26/2022 10:[address] or confirm orders for upcoming lab appointment on 01/29/2022 Thank You. documented in this encounter Plan of Treatment Upcoming Encounters Date Type Specialty Care Team Description 06/18/2022 Ancillary Procedure Cardiology Abdi Bailey MD [address] [place] [address] (Wo rk) documented as of this encounter Visit Diagnoses Not on filedocumented in this encounter Care Teams Social Insurance Adviser Relationship Specialty Start Date End Date Ina Sheriff, PCP - General Family Medicine 01/30/[address] [address] Herson Licea MD Assigned Surgical Provider 02/02/[address] [place] [address] Ke Hernandes, Assigned Heart and 12/13/21 MD Vascular Provider [address] [facility] [address] [place], [place] [address] documented as of this encounter
--- OUTSIDE RECORDS SUMMARY | 2022-04-27 07:34 | XMS_ITS | Encounter Summary ---
:1935 Author Organization [place] Address [facility] [place] [address] Care Team Providers Name Role Phone Christian Steiner MD Primary Care Provider Unavailable Christian Steiner MD Unavailable Unavailable Humberto Good MD Unavailable Ke Hernandes MD Unavailable Encounter Details Date Type Department Care Team Description 01/27/2021 Lab [facility] Prostate cancer (H) Laboratory [address] [place] [address] Social History Tobacco Use Types Packs/Day Years Used Date Smoking Tobacco: Former Cigarettes Quit : 02/29/1980 Smokeless Tobacco: Never Alcohol Use Standard Drinks/Week Comments Yes 0 (1 standard drink = 0.6 oz pure alcoho l) occasionally Sex Assigned at Date Recorded Not on file COVID-19 Exposure Response Date Recorded In the last month, have you been in contact with No / Unsure 01/27/2021 9:58 AM CDT someone who was confirmed or suspected to have Coronavirus / COVID-19? documented as of this encounter Plan of Treatment Upcoming Encounters Date Type Specialty Care Team Description 06/18/2022 Ancillary Procedure Cardiology Abdi Bailey MD [address] [place] [id number] (Wo rk) documented as of this encounter Procedures Procedure Name Priority Date/Time Associated Diagnosis Comme nts PSA TUMOR MARKER Routine 01/27/2021 10:08 AM Prostate cancer ( H) Results for this CDT procedure are i n the results section. documented in this encounter Results PSA tumor marker [[id number]] (01/27/2021 10:08 AM CDT) P athologist Signature PSA Tumor <0.01 0.00 - 01/28/2021 [facility] Marker 4.00 ug/L 10:36 AM CDT Specimen Anatomical Collection Method / Collection Time Recei valarie Time (Source) Location / Volume Laterality Blood BLOOD SPECIMEN / Venipuncture / 01/27/2021 10:08 01/27 Unknown Unknown AM CDT 10:09 AM CDT Herson Licea MD LAB - BLOOD ORDERABLES Performing Organization Address City/State/ZIP Code Phon e Number OX LAB[facility]AT[facility] - [place], [place] [phone] [place] [facility] [phone] [place] [address] Lab (no room number, 1st floor of clinic) [facility] [place], [place] [phone] Clinic - [place] [id number] [place] [facility] [address] Lab (no room number, 1st floor of clinic) documented in this encounter Visit Diagnoses Diagnosis Prostate cancer (H) Malignant neoplasm of prostate documented in this encounter Care Teams Space And Missile Operations Spacelift Relationship Specialty Start Date End Date Christian Steiner MD PCP - General Internal Medicine 08/30/12 Christian Steiner MD Assigned PCP 08/11/12 02/22/21 Humberto Good Assigned Surgical Provider 04/05/20 02/01/21 MD [facility] [address] [place] [address] Ke Hernandes, Assigned Heart and 04/28/20 10/11/21 Vascular Provider [address] [place] [address] documented as of this encounter
--- OUTSIDE RECORDS SUMMARY | 2022-04-27 07:34 | XMS_ITS | Encounter Summary ---
:1935 Author Organization [place] Address [address] [place] [address] Care Team Providers Name Role Phone Ina Sheriff MD Primary Care Provider [phone] Herson Licea MD Unavailable Encounter Details Date Type Department Care Team Description 12/10/2021 Travel Social History Tobacco Use Types Packs/Day [...] in contact with No / Unsu re 12/10/2021 2:45 PM CDT someone who was confirmed or suspected to have Coronavirus/COVID-19? documented as of this encounter Plan of Treatment Upcoming Encounters Date Type Specialty Care Team Description 06/18/2022 Ancillary Procedure Cardiology Abdi Bailey MD [address] [facility] [address] [place] [address] (Wo rk) documented as of this encounter Visit Diagnoses Not on filedocumented in this encounter Care Teams Chamber Walker Relationship Specialty Start Date End Date Ina Sheriff, PCP - General Family Medicine 01/30/21 [facility] [address] [place] [address] Herson Licea MD Assigned Surgical Provider 02/02/[address] [place] [address] documented as of this encounter
--- OUTSIDE RECORDS SUMMARY | 2022-04-27 07:34 | XMS_ITS | Encounter Summary ---
:1935 Author Organization [place] Address [address] [facility] [place] [address] Care Team Providers Name Role Phone Christian Steiner MD Primary Care Provider Unavailable Christian Steiner MD Unavailable Unavailable Humberto Good MD Unavailable Ke Hernandes MD Unavailable Ina Sheriff MD Primary Care Provider [phone] Herson Licea MD Unavailable Encounter Details Date Type Department Care Team Description 01/22/2021 Documentation Only [facility] MD [facility] [address] [place], [place] [address] [phone] Social History Tobacco Use Types Packs/Day Years Used Date Smoking Tobacco: Former Cigarettes Quit : 02/29/1980 Smokeless Tobacco: Never Alcohol Use Standard Drinks/Week Comments Yes 0 (1 standard drink = 0.6 oz pure alcoho l) occasionally Sex Assigned at Date Recorded Not on file COVID-19 Exposure Response Date Recorded In the last month, have you been in contact with No / Unsure 01/30/2021 2:00 PM CDT someone who was confirmed or suspected to have Coronavirus / COVID-19? documented as of this encounter Progress Notes Izabela Rahman MLT - 01/22/2021 9:16 AM CDTSlonnie: Lab Appointment 01.27.[address] or confirm orders for upcoming lab appointment on 01/27/2021 Thank You. documented in this encounter Plan of Treatment Upcoming Encounters Date Type Specialty Care Team Description 06/18/2022 Ancillary Procedure Cardiology Abdi Bailey MD [address] [place] [id number] (Wo rk) documented as of this encounter Visit Diagnoses Not on filedocumented in this encounter Care Teams Coin Machine Servicer Repairer Relationship Specialty Start Date End Date Christian Steiner MD PCP - General Internal Medicine 08/30/12 Ina Sheriff, PCP - General Family Medicine 01/30/[address] [address] Christian Steiner MD Assigned PCP 08/11/12 02/22/21 Humberto Good, Assigned Surgical 04/05/20 02/01/21 MD Provider [address] [place] [address] Ke Hernandes, Assigned Heart and 04/28/20 10/11/21 MD Vascular Provider [address] [place] [address] Herson Licea, Assigned Surgical 02/02/21 MD Provider [address] [place], [place] [address] documented as of this encounter
--- OUTSIDE RECORDS SUMMARY | 2022-04-27 07:34 | XMS_ITS | Encounter Summary ---
:1935 Author Organization [place] Address [facility] [place] [address] Care Team Providers Name Role Phone Ina Sheriff MD Primary Care Provider [phone] VinayakHerson MD Unavailable Reason for Referral CV Testing [...] STATISTIC IV PUSH SINGL E INITIAL SUBSTANCE TX ECHO HEART XTHORACIC,LIMITED TX DOPPLER ECHO COLOR FLOW VELOCITY MAP TX ECHO HEART XTHORACIC,LIMITED TX ECHO HEART XTHORACIC,LIMITED HC ECHO TRANSTHORACIC, [place] [address] HC DOPPLER ECHO COLOR FLOW V ELOCITY MAP HC STATISTIC IV PUSH SINGLE INITIAL SUBSTANCE HC ECHO TRANSTHORACIC, LIMITED W CONTRAST HC ECHO TRANSTHORACIC, LIMITED W/O CONTRAST Referral ID Status Reason Start Date Expiration Date Visits Requ ested Visits Authorized [id number] Closed 12/10/2021 12/10/2022 1 1 Reason for Visit Reason Comments Follow Up Encounter Details Date Type Department Care Team Description 12/10/2021 Office Visit [facility] Ke Reno [facility] al ventricular Heart Clinic MD Sergio tachycardia (H) Mcbain [address] (Primary Dx) [address] [facility] [address] [place] [address] [place], [place] [phone] [address] (Work) [phone] Social History Tobacco Use Types Packs/Day Years [...] Sign Reading Time Taken Comments Blood Pressure 136/80 12/10/2021 3:47 PM CDT Pulse 72 12/10/2021 3:37 PM CDT Temperature - - Respiratory Rate - - Oxygen Saturation 99% 12/10/2021 3:37 PM CDT Inhaled Oxygen Concentration - - Weight 83.9 kg (185 lb) 12/10/2021 3:37 PM CDT Height 185.4 cm (6' 1) 12/10/2021 3:37 PM CDT Body Mass Index 24.41 12/10/2021 3:37 PM CDT documented in this encounter Progress Notes Ke Reno MD - 12/10/2021 3:45 PM CDT Electrophysiology/ Clinic Note H&P and Plan: REASON FOR VISIT: Electrophysiology evaluation. HISTORY OF PRESENT ILLNESS:Mr. 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 ?? Today, he informs he continues to do well. He continues to be active doing work around the house. Hehas no limitations and has no complaints during this visit. He denies any symptoms such as chest pain, shortness of breath, lightheadedness, near-syncope or syncope. Device was interrogated today. He is ventricularly paced 99% of the time and atrially paced 30% of the time. Lead parameters were stable. Of note, he exhibited 1 run of nonsustained VT (15 beats) in 08/30/2021, which he was asymptomatic. ?? PREVIOUS STUDIES (personally reviewed): -Echo (07/13/2016): Normal LV function. EF estimated at 55-60%. ??No significant valve disease. ?? ASSESSMENT AND PLAN: 1. Device care. ??Continue device checks every 3 months. 2. Hypertension. ??Blood pressure is well controlled. ??Continue lisinopril. 3. Diabetes. ??No acute issues. ??Continue metformin. 4. Nonsustained VT. Asymptomatic. We will obtain a limited echo. 5. Followup care. ??Follow up in clinic with an TUCKER in a year or as needed. ? Ke Reno MD Physical Exam: Vitals: BP 136/80 Pulse 72 Ht 1.854 m (6' 1) Wt 83.9 kg (185 lb) SpO2 99% BMI 24.41 kg/m?? Constitutional: AAO x3. Pt is in NAD. HEAD: normocephalic. SKIN: Skin normal color, texture and turgor with no lesions or eruptions. Eyes: PERRL, EOMI. ENT: Supple, normal JVP. No lymphadenopathy or thyroid enlargement. Chest: CTAB. Cardiac: RRR, normal S1 and S2. No murmurs rubs or gallop. Abdomen: Normal BS. Soft, non-tender and non-distended. No rebound or guarding. Extremities: Pedious pulses palpable B/L. No LE edema noticed. Neurological: Strength and sensation grossly symmetric and intact throughout. CURRENT MEDICATIONS: Current Outpatient Medications Medication Sig Dispense Refill ??? aspirin 81 MG tablet Take 1 tablet by mouth daily. ??? atorvastatin (LIPITOR) 40 MG tablet TAKE 1 TABLET BY MOUTH DAILY 90 tablet 3 ??? blood glucose (ACCU-CHEK FRANCISCO PLUS) test strip USE TO TEST EVERY DAY DIRECTED 100 strip 1 ??? Cholecalciferol (VITAMIN D) 1000 UNITS capsule Take 2,000 Units by mouth daily ??? cinnamon 500 MG CAPS Take 1 capsule by mouth daily ??? Co-Enzyme Q-10 10 MG CAPS Take 1 capsule by mouth daily Dose of capsule unknown. ??? glipiZIDE (GLUCOTROL XL) 10 MG 24 hr tablet TK 1 T PO D ??? lisinopril (PRINIVIL/ZESTRIL) 20 MG tablet TAKE 1 TABLET BY MOUTH DAILY 90 tablet 1 ??? metFORMIN (GLUCOPHAGE) 1000 MG tablet TAKE 1 TABLET BY MOUTH TWICE DAILY 180 tablet 3 ??? Multiple Vitamin (DAILY MULTIVITAMIN PO) Take 1 tablet by mouth daily ??? vitamin B complex with vitamin C (VITAMIN B COMPLEX) TABS Take 1 tablet by mouth daily. ALLERGIES No Known Allergies PAST MEDICAL HISTORY: Past Medical History: Diagnosis Date ??? Diabetes mellitus (H) Type II dx approx. 2003 ? High cholesterol ??? Hypertension ??? Malignant neoplasm of prostate (H) 2002 Prostate cancer; radioactive seeds ; Dr. Mckee; casodex in 2012 PAST SURGICAL HISTORY: Past Surgical History: Procedure Laterality Date ??? COLONOSCOPY N/A 04/07/2016 Procedure: COLONOSCOPY; Surgeon: Aldo Clarke MD; Location: [facility] ??? EXCISE MASS BACK 03/06/2013 Procedure: EXCISE MASS BACK; Excision Left Back Mass, and Right Back Mass; Surgeon: Abdirashid King MD; Location: [facility] OR ??? GENITOURINARY SURGERY prostate ??? IMPLANT PACEMAKER 06/2016 ??? PROSTATE SURGERY FAMILY HISTORY: Family History Problem Relation Age of Onset ??? Diabetes Son type 2 DM age 50 ??? Cancer Brother SOCIAL HISTORY: Social History Socioeconomic History ??? Marital status: Spouse name: Rita Vargas ??? 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 Smoking status: Former Smoker Quit date: 02/29/1980 Years since quittin.8 ??? Smokeless tobacco: Never Used Substance and Sexual Activity ??? Alcohol use: Yes Comment: occasionally ??? Drug use: No ??? Sexual activity: Yes Partners: Female Social History Narrative has diabetes also Review of Systems: Skin: Eyes: ENT: Respiratory: Cardiovascular: Gastroenterology: Genitourinary: Musculoskeletal: Neurologic: Psychiatric: Heme/Lymph/Imm: Endocrine: Recent Lab Results: LIPID RESULTS: Lab Results Component Value Date CHOL 151 05/14/2017 HDL 55 05/14/2017 LDL 96 02/16/2018 LDL 83 05/14/2017 TRIG 66 05/14/2017 CHOLHDLRATIO 3.0 03/21/2014 LIVER ENZYME RESULTS: Lab Results Component Value Date AST 20 02/16/2018 ALT 24 02/16/2018 CBC RESULTS: Lab Results Component Value Date WBC 9.2 07/13/2016 RBC 4.01 (L) 07/13/2016 HGB 11.9 (L) 07/13/2016 HCT 33.9 (L) 07/13/2016 MCV 85 07/13/2016 MCH 29.7 07/13/2016 MCHC 35.1 07/13/2016 RDW 13.1 07/13/2016 PLT 228 07/13/2016 BMP RESULTS: Lab Results Component Value Date NA 137 02/16/2018 POTASSIUM 4.4 02/16/2018 CHLORIDE 103 02/16/2018 CO2 24 02/16/2018 ANIONGAP 10 02/16/2018 GLC 215 (H) 02/16/2018 BUN 27 02/16/2018 CR 1.15 02/16/2018 GFRESTIMATED 61 02/16/2018 GFRESTBLACK 74 02/16/2018 JAYDEN 9.1 02/16/2018 A1C RESULTS: Lab Results Component Value Date A1C 7.4 (H) 02/16/2018 INR RESULTS: Lab Results Component Value Date INR 1.10 07/13/2016 ECHOCARDIOGRAM No results found for this or any previous visit (from the past 8760 hour(s)). No orders of the defined types were placed in this encounter. No orders of the defined types were placed in this encounter. There are no discontinued medications. No diagnosis found. CC Referred MD Minh No address on file documented in this encounter Plan of Treatment Upcoming Encounters Date Type Specialty Care Team Description 06/18/2022 Ancillary Procedure Cardiology Abdi Bailey MD [address] [place] [address] (Wo rk) documented as of this encounter Results ECHO LIMITED (02/25/2022 2:16 PM CDT) P athologist Signature LVEF 50-55% CARDIOLOGY RESULTS Anatomical Region Laterality Modality Echocardiography Specimen (Source) Anatomical Collection Method Collection Time Re ceived Time Location / / Volume Laterality 02/25/2022 12:41 PM CDT Narrative 02/25/2022 3:19 PM CDT [id number] [facility] [id number]^[email or web address]^KE^SERGIO [facility] Echocardiography Laboratory [address] [place] [address] Name: JANETH SEE : 1935 Study Date: 02/25/2022 12:41 PM Age: 86 yrs Gender: Male Patient Location: [facility] Reason For Study: Paroxysmal ventricular [...] note might be different from the original. [id number]^ROWDY^KE^SERGIO [facility] Echocardiography Laboratory [address] [place] [address] Name: JANETH SEE : 1935 Study Date: 02/25/2022 12:41 PM Age: 86 yrs Gender: Male Patient Location: [facility] Reason For Study: Paroxysmal ventricular tachycardia (H) Ordering Physician: KE RENO Referring Physician: KE RENO A Performed By: Lourdes Galvez BSA: 2.1 m2 [...] encounter Visit Diagnoses Diagnosis Paroxysmal ventricular tachycardia - Yadira rita Paroxysmal ventricular tachycardia documented in this encounter Care Teams Computer Education Professor Relationship Specialty Start Date End Date Ina Sheriff, PCP - General Family Medicine 01/30/[address] [address] Herson Licea MD Assigned Surgical Provider 02/02/[address] [place] [id number] documented as of this encounter
--- OUTSIDE RECORDS SUMMARY | 2022-04-27 07:34 | XMS_ITS | Encounter Summary ---
:1935 Author Organization [place] Address [address] [facility] [place] [address] Care Team Providers Name Role Phone Ina Sheriff MD Primary Care Provider [phone] Herson Licea MD Unavailable Ke Hernandes MD Unavailable Encounter Details Date Type Department Care Team Description 01/26/2022 [facility] Only [facility] Herson Licea Prostate cancer (H) Urology Clinic MD Lukas (Primary Dx) [place] [address] [place], [place] 4th [address] [address] [place], [place] [phone] (Wo rk) [address] [phone] Social History Tobacco Use Types Packs/Day Years [...] Care Team Description 06/18/2022 Ancillary Procedure Cardiology bAdi Bailey MD [address] [facility] [address] [place] [address] (Wo rk) documented as of this encounter Visit Diagnoses Diagnosis Prostate cancer (H) - Primary Malignant neoplasm of prostate documented in this encounter Care Teams Felt Washing Machine Tender Relationship Specialty Start Date End Date Ina Sheriff, PCP - General Family Medicine 01/30/21 [facility] [address] [place] [address] Herson Licea MD Assigned Surgical Provider 02/02/21 [address] [place], [place] [phone] Ke Hernandes, Assigned Heart and 12/13/21 Vascular Provider [address] [facility] [address] [place], [place] [address] documented as of this encounter
--- OUTSIDE RECORDS SUMMARY | 2022-04-27 07:34 | XMS_ITS | Encounter Summary ---
:1935 Author Organization [place] Address [address] [facility] [place] [address] Care Team Providers Name Role Phone Ke Hernandes MD Unavailable Ina Sheriff MD Primary Care Provider [phone] Herson Licea MD Unavailable Reason for Referral CV Testing (Routine) - Closed Specialty Diagnoses / Procedures Referred By Contact Refer red To Contact Diagnoses Cardiac pacemaker in situ Atrioventricular block, complete (H) Abdi Bailey MD Procedures Cardiac Device Check - In Clinic (Standing ORD 2 count) [address] [place] [address] Referral ID Status Reason Start Date Expiration Date Visits Requ ested Visits Authorized [id number] Closed 04/16/2021 04/16/2022 1 1 Reason for Visit CV Testing (Routine) - Closed Specialty Diagnoses / Procedures Referred By Contact Refer red To Contact Diagnoses Cardiac pacemaker in situ Tonya Sneed, Procedures Cardiac Device Check - In Clinic [address] [place] [address] Referral ID Status Reason Start Date Expiration Date Visits Requ ested Visits Authorized [id number] Closed 01/07/2021 01/07/2022 1 1 Encounter Details Date Type Department Care Team Description 04/16/2021 [facility] [place], Demosthenes Atri oventricular block, complete (H) (Primary Dx); Procedure [facility] MD oRwan Cardiac pacemaker in situ [place] [address] [address] [place] [address] [place] [address] [place] [phone] (Work) [phone] Social History Tobacco Use Types Packs/Day Years Used Date Smoking Tobacco: Former Cigarettes Quit : 02/29/1980 Smokeless Tobacco: Never Alcohol Use Standard Drinks/Week Comments Yes 0 (1 standard drink = 0.6 oz pure alcoho l) occasionally Sex Assigned at Date Recorded Not on file COVID-19 Exposure Response Date Recorded In the last month, have you been in contact with No / Unsure 04/16/2021 10:03 AM CDT someone who was confirmed or suspected to have Coronavirus / COVID-19? documented as of this encounter Plan of Treatment Upcoming Encounters Date Type Specialty Care Team Description 06/18/2022 Ancillary Procedure Cardiology Abdi Bailey MD [address] [place] [address] (Wo rk) Scheduled Orders Name Type Priority Associated Order Schedule Diagnoses Cardiac Device Implantable Cardiac Routine Cardiac pacemaker 2 Occurrences Check - In Clinic Device in situ starting 04/16/2021 (Standing ORD 2 Atrioventricular until , 1 count) block, complete (H) complete d documented as of this encounter Procedures Procedure Name Priority Date/Time Associated Comments Diagnosis PM DEVICE PROGRAMMING Routine 04/16/2021 10:08 Cardiac pacemak er Results for this EVAL, DUAL LEAD PACER AM CDT in situ proced ure are in the results section. documented in this encounter Results PM DEVICE PROGRAMMING EVAL, DUAL LEAD PACER (12/10/2021 3:07 PM CDT) Component Value Ref Test Analysis Performed Epyon t Range Method Time At Signature Date Time [id number] [employer] Interrogation Session Implantable Medtronic MEDTRONIC Pulse Generator Mechanical Equipment Test Engineer Implantable [id number] Advisa MEDTRONIC Pulse Generator MRI Model Implantable [id number] MEDTRONIC Pulse Generator Serial Number Type In Clinic [facility] Interrogation Session Clinic Name [facility] MEDTRONIC Implantable Pacemaker MEDTRONIC Pulse Generator Type Implantable [id number] MEDTRONIC Pulse Generator Implant Date Implantable Lead Medtronic MEDTRONIC Mechanical Equipment Test Engineer Implantable Lead 5076 CapSureFix MEDTRON IC Model Novus MRI SureScan Implantable Lead [id number] [employer]TRONIC Serial Number Implantable Lead [id number] MEDTRONIC Implant Date Implantable Lead Bipolar Lead [facility]ONIC Polarity Type Implantable Lead UNKNOWN [facility]TRONIC Location Detail 1 Implantable Lead Right Atrium MEDTRONIC Location Implantable Lead Medtronic MEDTRONIC Mechanical Equipment Test Engineer Implantable Lead 5076 CapSureFix MEDTRON IC Model Novus MRI SureScan Implantable Lead [id number] [employer]IC Serial Number Implantable Lead [id number] MEDTRONIC [...] 399 ohm MEDTRONIC Impedance Value Lead Channel 361 ohm [employer]TRONIC Impedance Value Lead Channel 2.25 mV [employer]TRONIC Sensing Intrinsic Amplitude Lead Channel 2 mV MEDTRONIC Sensing Intrinsic Amplitude Lead Channel 0.5 V MEDTRONIC Pacing Threshold Amplitude Lead Channel 0.4 ms MEDTRONIC Pacing Threshold Pulse Width Lead Channel 513 ohm MEDTRONIC Impedance Value Lead Channel 456 ohm MEDTRONIC Impedance Value Lead Channel 5.125 mV MEDTRONIC Sensing Intrinsic Amplitude Lead Channel 5.875 mV MEDTRONIC Sensing Intrinsic Amplitude Lead Channel 0.75 V [employer]TRONIC Pacing Threshold Amplitude Lead Channel 0.4 ms [employer]TRONIC Pacing Threshold Pulse Width Battery Date [id number] [employer]IC Time of Measurements Battery Status OK [employer]TRONIC Battery GREASE MAN 2.83 MEDTRONIC Trigger Battery 46 mo MEDTRONIC Remaining Longevity Battery Voltage 2.98 V MEDTRONIC Irving Statistic [id number] MEDTRONIC Date Time Start Irving Statistic [id number] [employer]TRONIC Date Time End Irving Statistic 29.51 % [employer]IC RA Percent Paced Irving Statistic 99.47 % [employer]TR[employer]IC RV Percent Paced Irving Statistic 29.66 % [employer]IC AP VEGETABLE LOADER Percent Irving Statistic 70.18 % [employer]IC VEGETABLE LOADER Percent Irving Statistic 0 % [employer]TR[employer]IC AP VS Percent Irving Statistic 0.15 % [employer]TR[employer]IC VS Percent Atrial Tachy [id number] [employer]TRONIC Statistic Date Time Start Atrial Tachy [id number] [employer]IC Statistic Date Time End Atrial Tachy 0 % [facility]TR[employer]IC Statistic AT/AF Wilcox Percent Episode 0 [facility]TRONIC Statistic Recent Count Episode AT/AF [facility]IC Statistic Type Category Episode 0 [facility]TRONIC Statistic Recent Count Episode SVT [facility]TRONIC Statistic Type Category Episode 1 [facility]TRONIC Statistic Recent Count Episode VT [facility]TRONIC Statistic Type Category Episode 0 MEDTRONIC Statistic Recent Count Episode VT [facility]TRONIC Statistic Type Category Episode [id number] [facility]TRONIC Statistic Recent Date Time Start Episode [id number] [facility]TR[employer]IC Statistic Recent Date Time End Episode [id number] [facility]TRONIC Statistic Recent Date Time Start Episode [id number] [facility]TRONIC Statistic Recent Date Time End Episode [id number] [facility]TRONIC Statistic Recent Date Time Start Episode [id number] [facility]TRONIC Statistic Recent Date Time End Episode [id number] [facility]TRONIC Statistic Recent Date Time Start Episode [id number] [employer]TRONIC Statistic Recent Date Time End Episode 1 [employer]TRONIC Statistic Total Count Episode AT/AF [facility]TR[employer]IC Statistic Type Category Episode 0 MEDTRONIC Statistic Total Count Episode SVT MEDTRONIC Statistic Type Category Episode 2 MEDTRONIC Statistic Total Count Episode VT MEDTRONIC Statistic Type Category Episode 0 MEDTRONIC Statistic Total Count Episode VT MEDTRONIC Statistic Type Category Episode [id number] [facility]TRONIC Statistic Total Date Time Start Episode [id number] MEDTRONIC Statistic Total Date Time End Episode [id number] MEDTRONIC Statistic Total Date Time Start Episode [id number] MEDTRONIC Statistic Total Date Time End Episode [id number] MEDTRONIC Statistic Total Date Time Start Episode [id number] [facility]TRONIC Statistic Total Date Time End Episode [id number] [employer]TRONIC Statistic Total Date Time Start Episode [id number] [employer]ONIC Statistic Total Date Time End Anatomical Region Laterality Modality Other Specimen (Source) Anatomical Collection Method Collection Time Re ceived Time Location / / Volume Laterality 12/10/2021 2:55 PM CDT Narrative 01/02/2022 7:49 AM CDT Medtronic Advisa (D) Pacemaker Device Check Patient seen in clinic for device evalua tion and iterative programming. AP: 30 ?% ?? VEGETABLE LOADER: 99 % ?? Mode: DDD 60-130 ?? Underlying Rhythm: SR 65 bpm, CHB, junct ional escape 30's ?? Heart Rate: excellent variability, pt de nies activity intolerance Sensing: WNL ?? Pacing Threshold: WNL ?? Impedance: WNL ?? Battery Status: 3.5 yrs estimated longev ity (3 - 4.5 yrs) Device Site: WNL ?? Atrial Arrhythmia: 0 ?? Ventricular Arrhythmia: 0 ?? Setting Change: none ?? Care Plan: Scheduled remote in 3 months. ??OV with Dr. Hernandes today ?? EC RN I have reviewed and interpreted the colby ce interrogation, settings, programming and nurse's summary. The dev ice is functioning within normal device parameters. I agree with the curr ent findings, assessment and plan. Abdi Bailey MD CV CARDIAC SERVICES ORDERABL ES PM DEVICE PROGRAMMING EVAL, DUAL LEAD PACER (04/16/2021 10:08 AM CDT) Component Value Ref Test Analysis Performed Pathologis t Range Method Time At Signature Date Time [id number] [employer]TR[employer]IC Interrogation Session Implantable Medtronic MEDTRONIC Pulse Generator Mechanical Equipment Test Engineer Implantable [id number] [employer]TRONIC Pulse Generator MRI Model Implantable [id number] [facility]TRONIC Pulse Generator Serial Number Type In Clinic [facility]IC Interrogation Session Clinic Name [facility]TRONIC Implantable Pacemaker MEDTRONIC Pulse Generator Type Implantable [id number] MEDTRONIC Pulse Generator Implant Date Implantable Lead Medtronic MEDTRONIC Mechanical Equipment Test Engineer Implantable Lead 5076 CapSureFix MEDTRON IC Model Novus MRI SureScan Implantable Lead [id number] MEDTRONIC Serial Number Implantable Lead [id number] MEDTRONIC Implant Date Implantable Lead Bipolar Lead [facility]TRONIC Polarity Type Implantable Lead UNKNOWN MEDTRONIC Location Detail 1 Implantable Lead Right Atrium MEDTRONIC Location Implantable Lead Medtronic MEDTRONIC Mechanical Equipment Test Engineer Implantable Lead 5076 CapSureFix MEDTRON IC Model Novus MRI SureScan Implantable Lead [id number] [employer]TRONIC Serial Number Implantable Lead [id number] MEDTRONIC [...] 350 ms MEDTRONIC Detection Interval Lead Channel 418 ohm MEDTRONIC Impedance Value Lead Channel 380 ohm MEDTRONIC Impedance Value Lead Channel 2.25 mV MEDTRONIC Sensing Intrinsic Amplitude Lead Channel 2.25 mV MEDTRONIC Sensing Intrinsic Amplitude Lead Channel 0.375 V MEDTRONIC Pacing Threshold Amplitude Lead Channel 0.4 ms MEDTRONIC Pacing Threshold Pulse Width Lead Channel 551 ohm MEDTRONIC Impedance Value Lead Channel 494 ohm MEDTRONIC Impedance Value Lead Channel 6.125 mV MEDTRONIC Sensing Intrinsic Amplitude Lead Channel 6.375 mV MEDTRONIC Sensing Intrinsic Amplitude Lead Channel 0.625 V MEDTRONIC Pacing Threshold Amplitude Lead Channel 0.4 ms MEDTRONIC Pacing Threshold Pulse Width Battery Date MEDTRONIC Time of Measurements Battery Status OK MEDTRONIC Battery GREASE MAN 2.83 MEDTRONIC Trigger Battery 56 mo MEDTRONIC Remaining Longevity Battery Voltage 2.99 V MEDTRONIC Irving Statistic [id number] MEDTRONIC Date Time Start Irving Statistic [id number] MEDTRONIC Date Time End Irving Statistic 23.85 % MEDTRONIC RA Percent Paced Irving Statistic 99.46 % MEDTRONIC RV Percent Paced Irving Statistic 23.93 % [employer]TRONIC AP VEGETABLE LOADER Percent Irving Statistic 75.93 % MEDTRONIC VEGETABLE LOADER Percent Irving Statistic 0 % MEDTRONIC AP VS Percent Irving Statistic 0.14 % MEDTRONIC VS Percent Atrial Tachy [id number] MEDTRONIC Statistic Date Time Start Atrial Tachy [id number] MEDTRONIC Statistic Date Time End Atrial Tachy 0 % MEDTRONIC Statistic AT/AF Wilcox Percent Episode 0 MEDTRONIC Statistic Recent Count Episode AT/AF [facility]TRONIC Statistic Type Category Episode 0 MEDTRONIC Statistic Recent Count Episode SVT MEDTRONIC Statistic Type Category Episode 0 MEDTRONIC Statistic Recent Count Episode VT MEDTRONIC Statistic Type Category Episode 0 MEDTRONIC Statistic Recent Count Episode VT MEDTRONIC Statistic Type Category Episode [id number] MEDTRONIC Statistic Recent Date Time Start Episode [id number] MEDTRONIC Statistic Recent Date Time End Episode [id number] MEDTRONIC Statistic Recent Date Time Start Episode [id number] MEDTRONIC Statistic Recent Date Time End Episode [id number] MEDTRONIC Statistic Recent Date Time Start Episode [id number] MEDTRONIC Statistic Recent Date Time End Episode [id number] MEDTRONIC Statistic Recent Date Time Start Episode [id number] MEDTRONIC Statistic Recent Date Time End Episode 1 MEDTRONIC Statistic Total Count Episode AT/AF [facility]TRONIC Statistic Type Category Episode 0 MEDTRONIC Statistic Total Count Episode SVT MEDTRONIC Statistic Type Category Episode 1 MEDTRONIC Statistic Total Count Episode VT MEDTRONIC Statistic Type Category Episode 0 MEDTRONIC Statistic Total Count Episode VT MEDTRONIC Statistic Type Category Episode [id number] MEDTRONIC Statistic Total Date Time Start Episode [id number] MEDTRONIC Statistic Total Date Time End Episode [id number] MEDTRONIC Statistic Total Date Time Start Episode [id number] MEDTRONIC Statistic Total Date Time End Episode [id number] MEDTRONIC Statistic Total Date Time Start Episode [id number] MEDTRONIC Statistic Total Date Time End Episode [id number] MEDTRONIC Statistic Total Date Time Start Episode [id number] [facility]TRONIC Statistic Total Date Time End Anatomical Region Laterality Modality Other Specimen (Source) Anatomical Collection Method Collection Time Re ceived Time Location / / Volume Laterality 04/16/2021 10:13 AM CDT Narrative 04/23/2021 9:22 AM HEALTH CARE ADMINISTRATOR Medtronic Advisa (D) Pacemaker Device Check- [facility] Patient seen in clinic for device evalua tion and iterative programming. AP: 24 ?% ?? VEGETABLE LOADER: 99.9 % ?? Mode: DDD 60-130 ?? Underlying Rhythm: SR with CHB and no ju nctional escape at VVI 30 ?? Heart Rate: Stable with good variability ?? Sensing: RA: wnl, RV: unable to obtain ? ? Pacing Threshold: stable ?? Impedance: stable ?? Battery Status: 4.5 years ?? Device Site: Healed ?? Atrial Arrhythmia: 0 ?? Ventricular Arrhythmia: 0 ?? Setting Change: None ?? Care Plan: Patient has human[employer] insurance and was provided with [facility] Device Clinic information today so he ca n transfer cares and get enrolled with [facility]'s heart care clinics. ?? ANYA, RN I have reviewed and interpreted the colby ce interrogation, settings, programming and nurse's summary. The dev ice is functioning within normal device parameters. I agree with the curr ent findings, assessment and plan. 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
--- OUTSIDE RECORDS SUMMARY | 2022-04-27 07:34 | XMS_ITS | Encounter Summary ---
:1935 Author Organization [place] Address [facility] [place] [address] Care Team Providers Name Role Phone Ina Sheriff MD Primary Care Provider Herson Licea MD Unavailable Ke Hernandes MD Unavailable Encounter Details Date Type Department Care Team Description 01/29/[address] [facility] Prostate cancer (H) Laboratory [address] [place] [address] Social History Tobacco Use [...] Procedure Cardiology Abdi Bailey MD [address] [place] [address] (Wo rk) documented as of this encounter Visit Diagnoses Diagnosis Prostate cancer (H) Malignant neoplasm of prostate documented in this encounter Care Teams Tax Services Intern Relationship Specialty Start Date End Date Ina Sheriff, PCP - General Family Medicine 01/30/21 [facility] [address] [place] [address] Herson Licea MD Assigned Surgical Provider 02/02/21 [address] [place], [place] [address] Ke Hernandes, Assigned Heart and 12/13/21 MD Vascular Provider [address] [facility] [address] [place] [address] documented as of this encounter
--- OUTSIDE RECORDS SUMMARY | 2022-04-27 07:34 | XMS_ITS | Encounter Summary ---
:1935 Author Organization [place] Address [address] [place] [address] Care Team Providers Name Role Phone Christian Steiner MD Primary Care Provider Unavailable Christian Steiner MD Unavailable Unavailable Humberto Good MD Unavailable Ke Hernandes MD Unavailable Encounter Details Date Type Department Care Team Description 01/27/2021 Travel Social History Tobacco Use Types Packs/Day [...] 06/18/2022 Ancillary Procedure Cardiology Abdi Bailey MD [address] [place] [id number] (Wo rk) documented as of this encounter Visit Diagnoses Not on filedocumented in this encounter Care Teams Supervisor Prop Making Relationship Specialty Start Date End Date Christian Steiner MD PCP - General Internal Medicine 08/30/12 Christian Steiner MD Assigned PCP 08/11/12 02/22/21 Humberto Good Assigned Surgical Provider 04/05/20 02/01/21 [place] [address] [place] [address] Ke Hernandes, Assigned Heart and 04/28/20 10/11/21 Vascular Provider [address] [place] [id number] documented as of this encounter
--- OUTSIDE RECORDS SUMMARY | 2022-04-27 07:34 | XMS_ITS | Encounter Summary ---
:1935 Author Organization [place] Address [address] [place] [address]. [place] [address] Care Team Providers Name Role Phone Ina Sheriff MD Primary Care Provider [phone] Herson Licea MD Unavailable Reason for Visit Reason Onset Date Comments Pacemaker Check 10/15/2021 Encounter Details Date Type Department Care Team Description 10/15/2021 [facility] Dionne Castro e Pacemaker Check [facility] Heart [address] [address] Social History Tobacco Use Types Packs/Day Years Used Date Smoking Tobacco: Former Cigarettes Quit : 02/29/1980 Smokeless Tobacco: Never Alcohol Use Standard Drinks/Week Comments Yes 0 (1 standard drink = 0.6 oz pure alcoho l) occasionally Sex Assigned at Date Recorded Not on file documented as of this encounter Miscellaneous Notes Telephone Encounter - Negin Castro - 10/15/2021 3:05 PM CDT No changes. ??Ke Telephone Encounter - Negin Castro - 10/15/2021 2:05 PM CDT Images from the original note were not included. SONU [place]: Your patient had an episode of NSVT on today's device check. Episode lasted 15 beats, rates 120-185bpm. Episode occurred 08/30/21 at 533am. No associated symptoms. EF 55-60% (2017). Any changes? Medtronic Advisa (D) Remote PPM Device Check AP: 30.5% COMPANY LABORER: >99% Mode: DDD 60/130 Presenting Rhythm: /COMPANY LABORER Heart Rate: adequate heart rates per histogram Sensing: stable Pacing Threshold: stable Impedance: stable Battery Status: 3-5 years Atrial Arrhythmia: none Ventricular Arrhythmia: 1 ventricular high rate. EGM shows Vs>As for NSVT lasting 15 beats, -361bvl. Episode occurred 08/30/21 at 533am. No associated symptoms. EF 55-60% (2017). Will notifyDr. Cecilio of findings. Care Plan: F/u PPM Carelink q 3 months. Pt overdue to see cardiology, transferred to scheduling. Gave results over the phone to pt. NANCY Haddad documented in this encounter Plan of Treatment Upcoming Encounters Date Type Specialty Care Team Description 06/18/2022 Ancillary Procedure Cardiology Abdi Bailey MD [address] [facility] [address] [place] [address] (Wo rk) documented as of this encounter Visit Diagnoses Not on filedocumented in this encounter Care Teams Service Parts Driver Relationship Specialty Start Date End Date Ina Sheriff, PCP - General Family Medicine 01/30/21 [facility] [address] [place] [address] Herson Licea MD Assigned Surgical Provider 02/02/[address] [place] [address] documented as of this encounter
--- OUTSIDE RECORDS SUMMARY | 2022-04-27 07:34 | XMS_ITS | Encounter Summary ---
:1935 Author Organization [place] Address [address] [place] [address] Care Team Providers Name Role Phone Ina Sheriff MD Primary Care Provider [phone] Herson Licea MD Unavailable Encounter Details Date Type Department Care Team Description 11/17/2021 Travel Social History Tobacco Use Types Packs/Day Years Used Date Smoking Tobacco: Former Cigarettes Quit : 02/29/1980 Smokeless Tobacco: Never Alcohol Use Standard Drinks/Week Comments Yes 0 (1 standard drink = 0.6 oz pure alcoho l) occasionally Sex Assigned at Date Recorded Not on file COVID-19 Exposure Response Date Recorded In the last 10 days, have you been in contact Unable to asse ss 11/17/2021 11:32 AM CDT with someone who was confirmed or suspected to have Coronavirus/COVID-19? documented as of this encounter Plan of Treatment Upcoming Encounters Date Type Specialty Care Team Description 06/18/2022 Ancillary Procedure Cardiology Abdi Bailey MD [address] [facility] [address] [place] [address] (Wo rk) documented as of this encounter Visit Diagnoses Not on filedocumented in this encounter Care Teams Molasses Feed Mixer Relationship Specialty Start Date End Date Ina Sheriff, PCP - General Family Medicine 01/30/21 [facility] [address] [place] [address] Herson Licea MD Assigned Surgical Provider 02/02/[address] [place] [address] documented as of this encounter
--- OUTSIDE RECORDS SUMMARY | 2022-04-27 07:34 | XMS_ITS | Encounter Summary ---
:1935 Author Organization [place] Address [facility] [place] [address] Care Team Providers Name Role Phone Christian Steiner MD Unavailable Unavailable Humberto Good MD Unavailable Ke Hernandes MD Unavailable Ina Sheriff MD Primary Care Provider [phone] Reason for Visit Reason Comments Prostate Cancer Here to establish care and r nicolew psa. Encounter Details Date Type Department Care Team Description 01/30/2021 Office Visit [facility] Vinayak, Herson Prostate cancer (H) (Primary Dx); Urology Clinic MD Lukas Type 2 diabetes mellitus without complic ation, without long-term current use of insulin (H); [address] Hypertension goal BP (blood pressure) < 140/90; [address] [place], [place] Third d egree heart block (H) [address] [address] [address] [place], [place] (Work) [address] [phone] Social History Tobacco Use Types Packs/Day Years [...] / COVID-19? documented as of this encounter Last Filed Vital Signs Vital Sign Reading Time Taken Comments Blood Pressure 104/62 01/30/2021 2:09 PM CDT Pulse - - Temperature - - Respiratory Rate - - Oxygen Saturation - - Inhaled Oxygen Concentration - - Weight 88 kg (194 lb) 01/30/2021 2:09 PM CDT Height 182.9 cm (6') 01/30/2021 2:09 PM CDT Body Mass Index 26.31 01/30/2021 2:09 PM CDT documented in this encounter Patient Instructions Patient InstructionsHerson Licea MD - 01/30/2021 2:00 PM CDT Stop Casodex Follow up in 1 year with PSA documented in this encounter Progress Notes Herson Licea MD - 01/30/2021 2:00 PM CDT CHIEF COMPLAINT It was my pleasure to see Humberto Siddiqui who is a 85 year old male for follow-up of prostate cancer with history of brachytherapy with external beam radiotherapy and hormonal therapy for biochemical recurrence in the past. HPI: Humberto Siddiqui is a 85 year old male being seen for follow-up. Duration of problem: 10 years Previous treatments: Brachytherapy plus EBRT with hormonal therapy in the past currently taking Casodex 50 mg once a day Reviewed previous notes from Dr. Good Humberto has been doing very well he does have some issues with occasional urgency of urination otherwise he is fine. His PSA has been on his undetectable in the recent past and he is taking a very low dose of 50 mg of Casodex without any additional hormonal therapies. He also does have diabetes and hypertension and is on treatment for the same He is recently had a pacemaker placed in the winter for heart block but otherwise not symptomatic atthe moment. Exam: BP 104/62 Ht 1.829 m (6') Wt 88 kg (194 lb) BMI 26.31 kg/m?? General: age-appropriate appearing male in NAD sitting in an exam chair Resp: no respiratory distress CV: heart rate regular Abdomen: Degree of obesity is mild. Abdomen is soft and nontender. No organomegaly. Rectal exam: Deferred Neuro: grossly non focal. Normal reflexes Motor: excellent strength throughout Review of Imaging: The following imaging exams were independently viewed and interpreted by me and discussed with patient: Review of Labs: The following labs were reviewed by me and discussed with the patient: PSA: Normal less than 0.01 Assessment & Plan Prostate cancer (H) We discussed about the significance of undetectable PSAs following his treatment and the fact that he has been off injectable hormones for quite some time now. He is taking a very low-dose of Casodex which in itself may not be that helpful based on current guidelines. He also has significant cardiac issues and I think he does not benefit by continuing to be on Casodex with an undetectable PSA. So therefore we stopped Casodex today and will continue to monitor his PSA and see me in a years time with a PSA value. - PSA tumor marker [[id number]] Type 2 diabetes mellitus without complication, without long-term current use of insulin (H) Hypertension goal BP (blood pressure) < 140/90 Third degree heart block (H) Herson Licea MD [facility] Additional Billing and Coding Information: Review of external notes as documented above Review of the result(s) of each unique test - PSA Independent interpretation of a test performed by another physician/other qualified health health care specialist (not separately reported) - Discussion of management or test interpretation with external physician/other qualified healthcare professional/appropriate source - Diagnosis or treatment significantly limited by social determinants of health - 15 minutes spent on the date of the encounter doing chart review, review of test results, interpretation of tests, patient visit and documentation documented in this encounter Plan of Treatment Upcoming Encounters Date Type Specialty Care Team Description 06/18/2022 Ancillary Procedure Cardiology Abdi Bailey MD [address] [place] [address] (Wo rk) documented as of this encounter Procedures Procedure Name Priority Date/Time Associated Diagnosis Comme nts PSA TUMOR MARKER Routine 01/29/2022 7:59 AM Prostate cancer (H ) Results for this CDT procedure are i n the results section. documented in this encounter Results PSA tumor marker [[id number]] (01/29/2022 7:59 AM CDT) P athologist Signature [...] City/State/ZIP Code Phon e Number [facility] [place], [place] [phone] [place] [facility] [address] Lab (no room number, 1st floor of clinic) [facility] [place], [place] [phone] [facility] [address] [address] Lab (no room number, 1st floor of clinic) documented in this encounter Visit Diagnoses Diagnosis Prostate cancer (H) - Primary Malignant neoplasm of prostate Type 2 diabetes mellitus without complic ation, without long-term current use of insulin (H) Hypertension goal BP (blood pressure) < 140/90 Unspecified essential hypertension 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
--- OUTSIDE RECORDS SUMMARY | 2022-04-27 07:34 | XMS_ITS | Encounter Summary ---
:1935 Author Organization [place] Address [address] [facility] [place] [address] Care Team Providers Name Role Phone Christian Steiner MD Primary Care Provider Unavailable Christian Steiner MD Unavailable Unavailable Humberto Good MD Unavailable Ke Hernandes MD Unavailable Encounter Details Date Type Department Care Team Description 01/22/2021 Orders Only [facility] Prostate cancer (H) Urology Clinic Yanique Gaytan MD (Primary Dx) [address] [facility] [address] [place], [place] [id number] (Wo rk) Social History Tobacco Use Types [...] 06/18/2022 Ancillary Procedure Cardiology Abdi Bailey MD [address] [place] [address] (Wo rk) documented as of this encounter Results PSA tumor marker [[id number]] (01/27/2021 10:08 AM CDT) athologist Signature PSA Tumor <0.01 0.00 - [...] City/State/ZIP Code Phon e Number [facility] [place], [place] [phone] [place] [facility] [address] Lab (no room number, 1st floor of clinic) [facility] [place], [place] [phone] [facility] [place] [address] [address] Lab (no room number, 1st floor of clinic) documented in this encounter Visit Diagnoses Diagnosis Prostate cancer (H) - Primary Malignant neoplasm of prostate documented in this encounter Care Teams Medical Aide Relationship Specialty Start Date End Date Christian Steiner MD PCP - General Internal Medicine 08/30/12 Christian Steiner MD Assigned PCP 08/11/12 02/22/21 Humberto Good Assigned Surgical Provider 04/05/20 02/01/21 MD Tony [address] [place] [address] Ke Hernandes, Assigned Heart and 04/28/20 10/11/21 Vascular Provider [address] [place] [address] documented as of this encounter
--- OUTSIDE RECORDS SUMMARY | 2022-04-27 07:34 | XMS_ITS | Encounter Summary ---
:1935 Author Organization [place] Address [facility] [place] [address] Care Team Providers Name Role Phone Ke Hernandes MD Unavailable Ina Sheriff MD Primary Care Provider [phone] Herson Licea MD Unavailable Encounter Details Date Type Department Care Team Description 04/16/2021 Travel Social History Tobacco Use Types Packs/Day [...] Ancillary Procedure Cardiology Abdi Bailey MD [address] [facility] [address] [place] [address] (Wo rk) documented as of this encounter Visit Diagnoses Not on filedocumented in this encounter Care Teams Warehouse Receiving Supervisor Relationship Specialty Start Date End Date Ina Sheriff, PCP - General Family Medicine 01/30/21 [facility] [address] [place] [address] Ke Hernandes, Assigned Heart and 04/28/20 10/11/21 Vascular Provider [address] [place] [address] Herson Licea MD Assigned Surgical Provider 02/02/21 [address] [place], [place] [phone] documented as of this encounter
--- OUTSIDE RECORDS SUMMARY | 2022-04-27 07:34 | XMS_ITS | Encounter Summary ---
:1935 Author Organization [place] Address [address] [facility] [place] [address] Care Team Providers Name Role Phone Ina Sheriff MD Primary Care Provider [phone] Herson Licea MD Unavailable Reason for Visit CV Testing (Routine) - Closed Specialty Diagnoses / Procedures Referred By Contact Refer red To Contact Diagnoses Cardiac pacemaker in situ Atrioventricular block, complete (H) Abdi Bailey MD Procedures Cardiac Device Check - In Clinic (Standing ORD 2 count) [address] [place] [address] Referral ID Status Reason Start Date Expiration Date Visits Requ ested Visits Authorized [id number] Closed 04/16/2021 04/16/2022 1 1 Encounter Details Date Type Department Care Team Description 12/10/2021 Ancillary [facility] Abdi Bailey MD Cardiac pacemaker in situ; Procedure Heart Clinic [address] Atrioventricula r block, complete (H) [address] [address] [place], [place] [address] [address] [place], [place] [phone] [address] (Work) [phone] Social History Tobacco Use Types Packs/Day Years [...] 06/18/2022 Ancillary Procedure Cardiology Abdi Bailey MD [address] [place] [id number] (Wo rk) documented as of this encounter Procedures Procedure Name Priority Date/Time Associated Comments Diagnosis PM DEVICE PROGRAMMING Routine 12/10/2021 3:07 PM Cardiac pacem lexis Results for this EVAL, DUAL LEAD PACER CDT in situ procedure are in Atrioventricular the results block, complete (H) section. documented in this encounter Results PM DEVICE PROGRAMMING EVAL, DUAL LEAD PACER (12/10/2021 3:07 PM CDT) Component Value Ref Test Analysis Performed Pathologis t Range Method Time At Signature Date Time [id number] [employer] Interrogation Session Implantable Medtronic [employer]ONIC Pulse Generator Floor Scrubber Implantable [id number] Advisa [employer]TRONIC Pulse Generator MRI Model Implantable [id number] [employer] Pulse Generator Serial Number Type In Clinic [employer] Interrogation Session Clinic Name [facility] [employer]IC Implantable Pacemaker MEDTRONIC Pulse Generator Type Implantable [id number] [employer]TR[employer]IC Pulse Generator Implant Date Implantable Lead Medtronic MEDTRONIC Floor Scrubber Implantable Lead 5076 CapSureFix MEDTRON IC Model Novus MRI SureScan Implantable Lead [id number] [employer]IC Serial Number Implantable Lead [id number] MEDTRONIC Implant Date Implantable Lead Bipolar Lead [employer]IC Polarity Type Implantable Lead UNKNOWN [employer]TRONIC Location Detail 1 Implantable Lead Right Atrium MEDTRONIC Location Implantable Lead Medtronic MEDTRONIC Floor Scrubber Implantable Lead 5076 CapSureFix MEDTRON IC Model Novus MRI SureScan Implantable Lead [id number] [employer] Serial Number Implantable Lead [id number] MEDTRONIC [...] [employer]IC Pacing Threshold Pulse Width Battery Date [id number] [place] Time of Measurements Battery Status OK [employer] Battery NEEDLEMAKER 2.83 [employer]IC Trigger Battery 46 mo [employer]IC Remaining Longevity Battery Voltage 2.98 V MEDTRONIC Irving Statistic [id number] [employer]TRONIC Date Time Start Irving Statistic [id number] [employer]TR[employer]IC Date Time End Irving Statistic 29.51 % [employer] RA Percent Paced Irving Statistic 99.47 % MEDTR[employer]IC RV Percent Paced Irving Statistic 29.66 % [employer] AP ASSOCIATE PROFESSOR OF [employer] Percent Irving Statistic 70.18 % [employer] ASSOCIATE PROFESSOR OF [employer] Percent Irving Statistic 0 % [employer]TR[employer]IC AP VS Percent Irving Statistic 0.15 % [employer] VS Percent Atrial Tachy [id number] [employer]IC Statistic Date Time Start Atrial Tachy [id number] [employer]TRONIC Statistic Date Time End Atrial Tachy 0 % MED[employer]IC Statistic AT/AF [place] Percent Episode 0 [employer]TR[employer]IC Statistic Recent Count Episode AT/AF [employer] Statistic Type Category Episode 0 [employer]TRONIC Statistic Recent Count Episode SVT [employer]TRONIC Statistic Type Category Episode 1 [employer]IC Statistic Recent Count Episode VT [employer]TRONIC Statistic Type Category Episode 0 MEDTRONIC Statistic Recent Count Episode VT [employer]TR[employer]IC Statistic Type Category Episode [id number] [employer]IC Statistic Recent Date Time Start Episode [id number] [employer]IC Statistic Recent Date Time End Episode [id number] [employer] Statistic Recent Date Time Start Episode [id number] [employer] Statistic Recent Date Time End Episode [id number] [employer] Statistic Recent Date Time Start Episode [id number] [employer] Statistic Recent Date Time End Episode [id number] [employer]IC Statistic Recent Date Time Start Episode [id number] [employer]TR[employer]IC Statistic Recent Date Time End Episode 1 [employer]TR[employer]IC Statistic Total Count Episode AT/AF [employer]IC Statistic Type Category Episode 0 MEDTRONIC Statistic Total Count Episode SVT [employer]TR[employer]IC Statistic Type Category Episode 2 MEDTRONIC Statistic Total Count Episode VT MEDTRONIC Statistic Type Category Episode 0 MEDTRONIC Statistic Total Count Episode VT [employer]TR[employer]IC Statistic Type Category Episode [id number] [employer]TR[employer]IC Statistic Total Date Time Start Episode [id number] [employer]TR[employer]IC Statistic Total Date Time End Episode [id number] MEDTRONIC Statistic Total Date Time Start Episode [id number] MEDTRONIC Statistic Total Date Time End Episode [id number] [employer]TR[employer]IC Statistic Total Date Time Start Episode [id number] [employer] Statistic Total Date Time End Episode [id number] [employer] Statistic Total Date Time Start Episode [id number] [employer] Statistic Total Date Time End Anatomical Region Laterality Modality Other Specimen (Source) Anatomical Collection Method Collection Time Re ceived Time Location / / Volume Laterality 12/10/2021 2:55 PM CDT Narrative 01/02/2022 7:49 AM CDT Medtronic Advisa (D) Pacemaker Device Check Patient seen in clinic for device evalua tion and iterative programming. AP: 30 ?% ?? ASSOCIATE PROFESSOR OF [employer]: 99 % ?? Mode: DDD 60-130 ?? [...] complete documented in this encounter Care Teams Pharmacologist Relationship Specialty Start Date End Date Ina Sheriff, PCP - General Family Medicine 01/30/[address] [address] Herson Licea MD Assigned Surgical Provider 02/02/[address] [place] [address] documented as of this encounter
--- OUTSIDE RECORDS SUMMARY | 2022-04-27 07:34 | XMS_ITS | Encounter Summary ---
:1935 Author Organization [place] Address [facility] [place] [address] Care Team Providers Name Role Phone Christian Steiner MD Unavailable Unavailable Humberto Good MD Unavailable Ke Hernandes MD Unavailable Ina Sheriff MD Primary Care Provider [phone] Encounter Details Date Type Department Care Team Description 01/30/2021 Travel Social History Tobacco Use Types Packs/Day [...] Bailey MD [address] [place] [id number] (Wo rk) documented as of this encounter Visit Diagnoses Not on filedocumented in this encounter Care Teams Mini Baccarat Dealer Relationship Specialty Start Date End Date nIa Sheriff, PCP - General Family Medicine 01/30/21 [facility] [address] [place] [address] Christian Steiner MD Assigned PCP 08/11/12 02/22/21 Humberto Good, Assigned Surgical Provider 03/1502/01/21 [address] [place] [address] Ke Hernandes, Assigned Heart and Vascular 04/1410/11/21 MD Provider [address] [place] [address] documented as of this encounter
--- OUTSIDE RECORDS SUMMARY | 2022-04-27 07:35 | XMS_ITS | Encounter Summary ---
:1935 Author Organization [place] Address [facility] [place] [address] Care Team Providers Name Role Phone Christian Steiner MD Primary Care Provider Unavailable Christian Steiner MD Unavailable Unavailable Humberto Good MD Unavailable Ke Hernandes MD Unavailable Reason for Referral CV Testing (Routine) - Closed Specialty Diagnoses / Procedures Referred By Contact Refer red To Contact Diagnoses Cardiac pacemaker in situ Tonya Sneed, Procedures Cardiac Device Check - In Clinic [address] [place] [address] Referral ID Status Reason Start Date Expiration Date Visits Requ ested Visits Authorized [id number] Closed 01/07/2021 01/07/2022 1 1 Reason for Visit CV Testing (Routine) - Closed Specialty Diagnoses / Procedures Referred By Contact Refer red To Contact Diagnoses Cardiac pacemaker in situ Tonya Sneed Procedures Cardiac Device Check - Remote [address] [place] [address] Referral ID Status Reason Start Date Expiration Date Visits Requ ested Visits Authorized [id number] Closed 09/17/2020 09/17/2021 1 1 Encounter Details Date Type Department Care Team Description 01/07/2021 Ancillary [facility] Tonya Sneed Card iac pacemaker Procedure [facility] MD [place] in situ Heart Care [address] [facility] [address] [place] [address] [place] [phone] (Wo rk) [address] [phone] Social History Tobacco Use Types Packs/Day Years [...] [address] [place] [address] (Wo rk) documented as of this encounter Procedures Procedure Name Priority Date/Time Associated Comments Diagnosis INTERROGATION DEVICE Routine 01/07/2021 10:40 Cardiac pacemake r Results for this EVAL REMOTE PACER UP AM CDT in situ procedu re are in TO 90 DAYS the results section. documented in this encounter Results PM DEVICE PROGRAMMING EVAL, DUAL LEAD PACER (04/16/2021 10:08 AM CDT) Component Value Ref Test Analysis Performed Pathologis t Range Method Time At Signature Date Time [id number] [employer] Interrogation Session Implantable Medtronic [employer]ONIC Pulse Generator Supervisor Post Wave Implantable [id number] Advisa [employer]TRONIC Pulse Generator MRI Model Implantable [id number] [employer] Pulse Generator Serial Number Type In Clinic [facility] Interrogation Session Clinic Name [facility]IC Implantable Pacemaker [employer]TRONIC Pulse Generator Type Implantable [id number] MEDTRONIC Pulse Generator Implant Date Implantable Lead Medtronic MEDTRONIC Supervisor Post Wave Implantable Lead 5076 CapSureFix MEDTRON IC Model Novus MRI SureScan Implantable Lead [id number] [employer] Serial Number Implantable Lead [id number] MEDTR[employer]IC Implant Date Implantable Lead Bipolar Lead [employer] Polarity Type Implantable Lead UNKNOWN [employer] Location Detail 1 Implantable Lead Right Atrium [employer]IC Location Implantable Lead Medtronic MEDTRONIC Supervisor Post Wave Implantable Lead 5076 CapSureFix MEDTRON IC Model Novus MRI SureScan Implantable Lead [id number] [employer] Serial Number Implantable Lead [id number] MEDTR[employer]IC [...] of Measurements Battery Status OK [employer] Battery GROUNDS MAINTENANCE WORKER 2.83 [employer] Trigger Battery 56 mo [employer] Remaining Longevity Battery Voltage 2.99 V [employer]IC Irving Statistic [id number] [employer]IC Date Time Start Irving Statistic [id number] [employer]IC Date Time End Irving Statistic 23.85 % [employer] RA Percent Paced Irving Statistic 99.46 % [employer] RV Percent Paced Irving Statistic 23.93 % [employer] AP HAND GLOVE CLEANER Percent Irving Statistic 75.93 % [employer] HAND GLOVE CLEANER Percent Irving Statistic 0 % [employer] AP VS Percent Irving Statistic 0.14 % [employer] VS Percent Atrial Tachy [id number] [employer]IC Statistic Date Time Start Atrial Tachy [id number] [employer] Statistic Date Time End Atrial Tachy 0 % [employer] Statistic AT/AF [place] Percent Episode 0 [employer] Statistic Recent Count Episode AT/AF [employer] Statistic Type Category Episode 0 [facility]IC Statistic Recent Count Episode SVT [employer]TR[employer]IC Statistic Type Category Episode 0 [facility] Statistic Recent Count Episode VT [facility]IC Statistic Type Category Episode 0 [facility]IC Statistic Recent Count Episode VT [facility]IC Statistic Type Category Episode [id number] [employer] Statistic Recent Date Time Start Episode [id number] [employer] Statistic Recent Date Time End Episode [id number] [employer] Statistic Recent Date Time Start Episode [id number] [employer] Statistic Recent Date Time End Episode [id number] [employer] Statistic Recent Date Time Start Episode [id number] [employer] Statistic Recent Date Time End Episode [id number] [employer]IC Statistic Recent Date Time Start Episode [id number] [employer]IC Statistic Recent Date Time End Episode 1 [employer]IC Statistic Total Count Episode AT/AF [employer] Statistic Type Category Episode 0 [employer]IC Statistic Total Count Episode SVT MEDTRONIC Statistic Type Category Episode 1 [facility]IC Statistic Total Count Episode VT [facility]TRONIC Statistic Type Category Episode 0 MEDTRONIC Statistic Total Count Episode VT [facility]TR[employer]IC Statistic Type Category Episode [id number] [employer]IC Statistic Total Date Time Start Episode [id number] [employer] Statistic Total Date Time End Episode [id number] [employer] Statistic Total Date Time Start Episode [id number] [employer]IC Statistic Total Date Time End Episode [id number] [employer]IC Statistic Total Date Time Start Episode [id number] [employer] Statistic Total Date Time End Episode [id number] [employer] Statistic Total Date Time Start Episode [id number] [employer] Statistic Total Date Time End Anatomical Region Laterality Modality Other Specimen (Source) Anatomical Collection Method Collection Time Re ceived Time Location / / Volume Laterality 04/16/2021 10:13 AM CDT Narrative 04/23/2021 9:22 AM RELIGIOUS ACTIVITIES DIRECTOR Medtronic Advisa (D) Pacemaker Device Check- [facility] Patient seen in clinic for device evalua tion and iterative programming. AP: 24 ?% ?? HAND GLOVE CLEANER: 99.9 % ?? Mode: DDD 60-130 ?? [...] has [employer] insurance and was provided with [facility] Device Clinic information today so he ca n transfer cares and get enrolled with [facility]'s heart care clinics. ?? KB, RN I have reviewed and interpreted the colby interrogation, settings, programming and nurse's summary. The dev ice is functioning within normal device parameters. I agree with the curr ent findings, assessment and plan. Tonya Sneed MD [facility] [place] INTERROGATION DEVICE EVAL REMOTE PACER UP TO 90 DAYS (01/07/2021 10:40 AM CDT) Component Value Ref Test Analysis Performed Pathologis t Range Method Time At Signature Date Time [id number] [employer] Interrogation Session Implantable Medtronic [employer]IC Pulse Generator Supervisor Post Wave Implantable A2DR01 Pam BLAIR [employer]IC Pulse Generator MRI Model Implantable [id number] [employer] Pulse Generator Serial Number Type Remote [facility] Interrogation Session Clinic Name Nirav [facility] Implantable Pacemaker [employer]IC Pulse Generator Type Implantable [id number] MEDTRONIC Pulse Generator Implant Date Implantable Lead Medtronic MEDTRONIC Supervisor Post Wave Implantable Lead 5076 CapSureFix MEDTRON IC Model Novus MRI SureScan Implantable Lead [id number] [employer]IC Serial Number Implantable Lead [id number] MEDTRONIC Implant Date Implantable Lead Bipolar Lead [employer]IC Polarity Type Implantable Lead UNKNOWN [employer]TR[employer]IC Location Detail 1 Implantable Lead Right Atrium [employer]IC Location Implantable Lead Medtronic MEDTRONIC Supervisor Post Wave Implantable Lead 5076 CapSureFix MEDTRON IC Model Novus MRI SureScan Implantable Lead [id number] [employer]IC Serial Number Implantable Lead [id number] MEDTRONIC [...] 361 ohm [employer]IC Impedance Value Lead Channel 2.125 mV [employer]IC Sensing Intrinsic Amplitude Lead Channel 2.125 mV MEDTRONIC Sensing Intrinsic Amplitude Lead Channel 0.5 V [employer]IC Pacing Threshold Amplitude Lead Channel 0.4 ms [employer]TRONIC Pacing Threshold Pulse Width Lead Channel 494 ohm [employer]TR[employer]IC Impedance Value Lead Channel 437 ohm MEDTRONIC Impedance Value Lead Channel 5.75 mV [employer]TR[employer]IC Sensing Intrinsic Amplitude Lead Channel 5.75 mV [employer]TR[employer]IC Sensing Intrinsic Amplitude Lead Channel 0.625 V [employer]TR[employer]IC Pacing Threshold Amplitude Lead Channel 0.4 ms [employer]IC Pacing Threshold Pulse Width Battery Date [id number] [employer] Time of Measurements Battery Status OK [employer]IC Battery GROUNDS MAINTENANCE WORKER 2.83 [employer]IC Trigger Battery 56 mo [employer]TR[employer]IC Remaining Longevity Battery Voltage 2.99 V MEDTRONIC Irving Statistic [id number] [employer]TR[employer]IC Date Time Start Irving Statistic [id number] [employer]TR[employer]IC Date Time End Irving Statistic 26.17 % [employer]IC RA Percent Paced Irving Statistic 99.91 % [employer]IC RV Percent Paced Irving Statistic 26.22 % [employer] AP HAND GLOVE CLEANER Percent Irving Statistic 73.76 % [employer]IC HAND GLOVE CLEANER Percent Irving Statistic 0 % [employer] AP VS Percent Irving Statistic 0.02 % [employer] VS Percent Atrial Tachy [id number] [employer]TRONIC Statistic Date Time Start Atrial Tachy [id number] MEDTRONIC Statistic Date Time End Atrial Tachy 0 % MEDTRONIC Statistic AT/AF [place] Percent Episode 0 [employer]TRONIC Statistic Recent Count Episode AT/AF [employer]TR[employer]IC Statistic Type Category Episode 0 MEDTRONIC Statistic Recent Count Episode SVT MEDTRONIC Statistic Type Category Episode 0 MEDTRONIC Statistic Recent Count Episode VT MEDTRONIC Statistic Type Category Episode 0 MEDTRONIC Statistic Recent Count Episode VT MEDTRONIC Statistic Type Category Episode [id number] [employer]TRONIC Statistic Recent Date Time Start Episode [id number] [employer]TRONIC Statistic Recent Date Time End Episode [id number] [employer]TRONIC Statistic Recent Date Time Start Episode [id number] [employer]TRONIC Statistic Recent Date Time End Episode [id number] [employer]TRONIC Statistic Recent Date Time Start Episode [id number] [employer]TRONIC Statistic Recent Date Time End Episode [id number] MEDTRONIC Statistic Recent Date Time Start Episode [id number] MEDTRONIC Statistic Recent Date Time End Episode 1 MEDTRONIC Statistic Total Count Episode AT/AF [employer]TRONIC Statistic Type Category Episode 0 MEDTRONIC Statistic Total Count Episode SVT MEDTRONIC Statistic Type Category Episode 1 MEDTRONIC Statistic Total Count Episode VT MEDTRONIC Statistic Type Category Episode 0 MEDTRONIC Statistic Total Count Episode VT MEDTRONIC Statistic Type Category Episode [id number] MEDTRONIC Statistic Total Date Time Start Episode [id number] MEDTRONIC Statistic Total Date Time End Episode [id number] MEDTRONIC Statistic Total Date Time Start Episode [id number] MEDTRONIC Statistic Total Date Time End Episode [id number] MEDTRONIC Statistic Total Date Time Start Episode [id number] MEDTRONIC Statistic Total Date Time End Episode [id number] MEDTRONIC Statistic Total Date Time Start Episode [id number] MEDTRONIC Statistic Total Date Time End Anatomical Region Laterality Modality Other Specimen (Source) Anatomical Collection Method Collection Time Re ceived Time Location / / Volume Laterality 01/07/2021 10:26 AM CDT Narrative 01/14/2021 3:07 PM CDT Medtronic Advisa (D) Remote PPM Device Check AP: 26% HAND GLOVE CLEANER: 100% Mode: DDD 60/130 Presenting Rhythm: /HAND GLOVE CLEANER Heart Rate: adequate heart rates per his togram Sensing: stable Pacing Threshold: stable Impedance: stable Battery Status: 3.5-5.5 years Atrial Arrhythmia: 3 brief mode switch e pisodes, no EGMs available Ventricular Arrhythmia: none Care Plan: F/u annual threshold in 3 wed. Gave results over the phone to NANCY Munoz I have reviewed and interpreted the colby ce interrogation, settings, programming and nurse's summary. The dev ice is functioning within normal device parameters. I agree with the curr ent findings, assessment and plan. Tonya Sneed MD [facility] [place] documented in this encounter Visit Diagnoses Diagnosis Cardiac pacemaker in situ Atrioventricular block, complete (H) - P rimary Atrioventricular block, complete Cardiac pacemaker in situ documented in this encounter Care Teams Blow Off Worker Relationship Specialty Start Date End Date Christian Steiner MD PCP - General Internal Medicine 08/30/12 Christian Steiner MD Assigned PCP 08/11/12 02/22/21 Humberto Good Assigned Surgical Provider 04/05/20 02/01/21 MD Tony [address] [place] [address] Ke Hernandes, Assigned Heart and 04/28/20 10/11/21 Vascular Provider [address] [place] [address] documented as of this encounter
--- OUTSIDE RECORDS SUMMARY | 2022-04-27 07:35 | XMS_ITS | Encounter Summary ---
:1935 Author Organization [place] Address [address] [place] [address] Care Team Providers Name Role Phone Christian Steiner MD Primary Care Provider Unavailable Christian Steiner MD Unavailable Unavailable Humberto Good MD Unavailable Encounter Details Date Type Department Care Team Description 04/10/2020 Travel Social History Tobacco Use Types Packs/Day Years Used Date Smoking Tobacco: Former Cigarettes Quit : 02/29/1980 Smokeless Tobacco: Never Alcohol Use Standard Drinks/Week Comments Yes 0 (1 standard drink = 0.6 oz pure alcoho l) occasionally Sex Assigned at Date Recorded Not on file COVID-19 Exposure Response Date Recorded In the last month, have you been in contact with No / Unsure 04/10/2020 4:07 PM CDT someone who was confirmed or suspected to have Coronavirus / COVID-19? documented as of this encounter Plan of Treatment Upcoming Encounters Date Type Specialty Care Team Description 06/18/2022 Ancillary Procedure Cardiology Abdi Bailey MD [address] [place] [address] (Wo rk) documented as of this encounter Visit Diagnoses Not on filedocumented in this encounter Care Teams Pork Cutlet Maker Relationship Specialty Start Date End Date Christian Steiner MD PCP - General Internal Medicine 08/30/12 Christian Steiner MD Assigned PCP 08/11/12 02/22/21 Humberto Good Assigned Surgical Provider 04/05/20 02/01/21 MD Tony [address] [place] [address] documented as of this encounter
--- OUTSIDE RECORDS SUMMARY | 2022-04-27 07:35 | XMS_ITS | Encounter Summary ---
:1935 Author Organization [place] Address [facility] [place] [address] Care Team Providers Name Role Phone Christian Steiner MD Primary Care Provider Unavailable Christian Steiner MD Unavailable Unavailable Reason for Referral (Routine) - Closed Specialty Diagnoses / Procedures Referred By Contact Refer red To Contact Diagnoses Cardiac pacemaker in situ [facility] [address] [place] [address] Referral ID Status Reason Start Date Expiration Date Visits Requ ested Visits Authorized [id number] Closed 02/21/2020 02/20/2021 1 1 Encounter Details Date Type Department Care Team Description 02/21/2020 Orders Only [facility] Rita Rubio Cardiac pacemaker in Heart Clinic TYSHAWN Shell, RN situ (Primary Dx) [facility] HE[facility] [address] [place], [place] [address] [address] [place], [place] [address] Social History Tobacco Use Types Packs/Day Years Used Date Smoking Tobacco: Former Cigarettes Quit : 02/29/1980 Smokeless Tobacco: Never Alcohol Use Standard Drinks/Week Comments Yes 0 (1 standard drink = 0.6 oz pure alcoho l) occasionally Sex Assigned at Date Recorded Not on file COVID-19 Exposure Response Date Recorded In the last month, have you been in contact with No / Unsure 02/21/2020 8:49 AM CDT someone who was confirmed or suspected to have Coronavirus / COVID-19? documented as of this encounter Plan of Treatment Upcoming Encounters Date Type Specialty Care Team Description 06/18/2022 Ancillary Procedure Cardiology Abdi Bailey MD [address] [place] [address] (Wo rk) Scheduled Referrals Name Type Priority Associated Diagnoses Order S chedule Follow-Up with Referral Routine Cardiac pacemaker in Expec lashanda: Wire Rope Sling Maker situ 05/22/20 20 (Approximate), Expires: 02/20/2021 documented as of this encounter Visit Diagnoses Diagnosis Cardiac pacemaker in situ - Primary documented in this encounter Care Teams Student Dean Relationship Specialty Start Date End Date Christian Steiner MD PCP - General Internal Medicine 08/30/12 Christian Steiner MD Assigned PCP 08/11/12 02/22/21 documented as of this encounter
--- OUTSIDE RECORDS SUMMARY | 2022-04-27 07:35 | XMS_ITS | Encounter Summary ---
:1935 Author Organization [place] Address [facility] [place] [address] Care Team Providers Name Role Phone Christian Steiner MD Primary Care Provider Unavailable Christian Steiner MD Unavailable Unavailable Encounter Details Date Type Department Care Team Description 11/16/2019 Travel Social History Tobacco Use Types Packs/Day Years Used Date Smoking Tobacco: Former Cigarettes Quit : 02/29/1980 Smokeless Tobacco: Never Alcohol Use Standard Drinks/Week Comments Yes 0 (1 standard drink = 0.6 oz pure alcoho l) occasionally Sex Assigned at Date Recorded Not on file COVID-19 Exposure Response Date Recorded In the last month, have you been in contact with No / Unsure 11/16/2019 8:52 AM CDT someone who was confirmed or suspected to have Coronavirus / COVID-19? documented as of this encounter Plan of Treatment Upcoming Encounters Date Type Specialty Care Team Description 06/18/2022 Ancillary Procedure Cardiology Abdi Bailey MD [address] [place] [address] (Wo rk) documented as of this encounter Visit Diagnoses Not on filedocumented in this encounter Care Teams Stock Clipper Relationship Specialty Start Date End Date Christian Steiner MD PCP - General Internal Medicine 08/30/12 Christian Steiner MD Assigned PCP 08/11/12 02/22/21 documented as of this encounter
--- OUTSIDE RECORDS SUMMARY | 2022-04-27 07:35 | XMS_ITS | Encounter Summary ---
:1935 Author Organization [place] Address [facility] [place] [address] Care Team Providers Name Role Phone Christian Steiner MD Primary Care Provider Unavailable Christian Steiner MD Unavailable Unavailable Humberto Good MD Unavailable Ke Hernandes MD Unavailable Reason for Visit CV Testing (Routine) - Closed Specialty Diagnoses / Procedures Referred By Contact Refer red To Contact Diagnoses Cardiac pacemaker in situ Chan Fishman MD Procedures Cardiac Device Check - Remote [address] [place] [address] Referral ID Status Reason Start Date Expiration Date Visits Requ ested Visits Authorized [id number] Closed 05/28/2020 05/28/2021 1 1 Encounter Details Date Type Department Care Team Description 09/17/2020 Ancillary Procedure [facility] Chan Fishman Cardiac pacemaker in [facility] situ Heart Care [address] [facility] [address] [facility] [address] [place] [address] [place] [address] Social History Tobacco Use Types Packs/Day Years [...] Procedure Cardiology Abdi Bailey MD [address] [place] [id number] (Wo rk) documented as of this encounter Procedures Procedure Name Priority Date/Time Associated Comments Diagnosis INTERROGATION DEVICE Routine 09/17/2020 3:02 PM Cardiac pacema ker Results for this EVAL REMOTE PACER UP CDT in situ procedu re are in TO 90 DAYS the results section. documented in this encounter Results INTERROGATION DEVICE EVAL REMOTE PACER UP TO 90 DAYS (09/17/2020 3:02 PM CDT) Component Value Ref Test Analysis Performed Pathologis t Range Method Time At Signature Date Time [id number] MEDTRONIC Interrogation Session Implantable Medtronic MEDTRONIC Pulse Generator Qualitative Executive Researcher Implantable [id number] Advisa MEDTRONIC Pulse Generator MRI Model Implantable [id number] MEDTRONIC Pulse Generator Serial Number Type Remote MEDTRONIC Interrogation Session Clinic Name [facility] MEDTRONIC Implantable Pacemaker MEDTRONIC Pulse Generator Type Implantable [id number] MEDTRONIC Pulse Generator Implant Date Implantable Lead Medtronic MEDTRONIC Qualitative Executive Researcher Implantable Lead 5076 CapSureFix MEDTRON IC Model Novus MRI SureScan Implantable Lead [id number] MEDTRONIC Serial Number Implantable Lead [id number] MEDTRONIC Implant Date Implantable Lead Bipolar Lead MEDTRONIC Polarity Type Implantable Lead UNKNOWN MEDTRONIC Location Detail 1 Implantable Lead Right Atrium MEDTRONIC Location Implantable Lead Medtronic MEDTRONIC Qualitative Executive Researcher Implantable Lead 5076 CapSureFix MEDTRON IC Model Novus MRI SureScan Implantable Lead [id number] MEDTRONIC Serial Number Implantable Lead [id number] MEDTRONIC [...] 361 ohm MEDTRONIC Impedance Value Lead Channel 2 mV MEDTRONIC Sensing Intrinsic [...] MEDTRONIC Pacing Threshold Pulse Width Battery Date The Athlete EmpireTRONIC Time of Measurements Battery Status OK MEDTRONIC Battery CONTRACT DESIGNER 2.83 MEDTRONIC Trigger Battery 62 mo MEDTRONIC Remaining Longevity Battery Voltage 3.00 V MEDTRONIC Irving Statistic [id number] MEDTRONIC Date Time Start Irving Statistic [id number] MEDTRONIC Date Time End Irving Statistic 19.76 % MEDTRONIC RA Percent Paced Irving Statistic 99.25 % MEDTRONIC RV Percent Paced Irving Statistic 19.83 % MEDTRONIC AP AIRLINE STATION AGENT Percent Irving Statistic 80.01 % MEDTRONIC AIRLINE STATION AGENT Percent Irving Statistic 0 % MEDTRONIC AP VS Percent Irving Statistic 0.16 % MEDTRONIC VS Percent Atrial Tachy [id number] MEDTRONIC Statistic Date Time Start Atrial Tachy [id number] MEDTRONIC Statistic Date Time End Atrial Tachy 0 % MEDTRONIC Statistic AT/AF [place] Percent Episode 0 MEDTRONIC Statistic Recent Count Episode AT/AF MEDTRONIC Statistic Type Category Episode 0 MEDTRONIC Statistic Recent Count Episode SVT MEDTRONIC Statistic Type Category Episode 0 MEDTRONIC Statistic Recent Count Episode VT MEDTRONIC Statistic Type Category Episode 0 MEDTRONIC Statistic Recent Count Episode VT MEDTRONIC Statistic Type Category Episode [id number] MEDTRONIC Statistic Recent Date Time Start Episode [id number] MEDTRONIC Statistic Recent Date Time End Episode [id number] MEDTRONIC Statistic Recent Date Time Start Episode [id number] MEDTRONIC Statistic Recent Date Time End Episode [id number] MEDTRONIC Statistic Recent Date Time Start Episode [id number] MEDTRONIC Statistic Recent Date Time End Episode [id number] MEDTRONIC Statistic Recent Date Time Start Episode [id number] MEDTRONIC Statistic Recent Date Time End Episode 1 MEDTRONIC Statistic Total Count Episode AT/AF MEDTRONIC Statistic Type Category Episode 0 MEDTRONIC Statistic Total Count Episode SVT MEDTRONIC Statistic Type Category Episode 1 MEDTRONIC Statistic Total Count Episode VT MEDTRONIC Statistic Type Category Episode 0 MEDTRONIC Statistic Total Count Episode VT MEDTRONIC Statistic Type Category Episode [id number] MEDTRONIC Statistic Total Date Time Start Episode [id number] MEDTRONIC Statistic Total Date Time End Episode [id number] MEDTRONIC Statistic Total Date Time Start Episode [id number] MEDTRONIC Statistic Total Date Time End Episode [id number] MEDTRONIC Statistic Total Date Time Start Episode [id number] MEDTRONIC Statistic Total Date Time End Episode [id number] MEDTRONIC Statistic Total Date Time Start Episode [id number] MEDTRONIC Statistic Total Date Time End Anatomical Region Laterality Modality Other Specimen (Source) Anatomical Collection Method Collection Time Re ceived Time Location / / Volume Laterality 09/17/2020 2:44 PM CDT Narrative 09/24/2020 11:00 AM CDT Medtronic Advisa (D) Remote PPM Device Check AP: 20% AIRLINE STATION AGENT: >99% Mode: DDD Presenting Rhythm: /AIRLINE STATION AGENT Heart Rate: adequate heart rates per his togram Sensing: stable Pacing Threshold: stable Impedance: stable Battery Status: 3.5-6 years Atrial Arrhythmia: 3 brief mode switch e pisodes, no EGMs available Ventricular Arrhythmia: none Care Plan: F/u PPM Carelink q 3 months. Gave results over the phone to pt. Haddad CVT I have reviewed and interpreted the colby ce interrogation, settings, programming and nurse's summary. The dev ice is functioning within normal device parameters. I agree with the curr ent findings, assessment and plan. Chan Haile MD CV CARDIAC SERVICES ORDERABL ES documented in this encounter Visit Diagnoses Diagnosis Cardiac pacemaker in situ documented in this encounter Care Teams Match Up Worker Relationship Specialty Start Date End Date Christian Steiner MD PCP - General Internal Medicine 08/30/12 Christian Steiner MD Assigned PCP 08/11/12 02/22/21 Humberto Good Assigned Surgical Provider 04/05/20 02/01/21 MD Tony [address] [place] [address] Ke Hernandes, Assigned Heart and 04/28/20 10/11/21 Vascular Provider [address] [place] [address] documented as of this encounter
--- OUTSIDE RECORDS SUMMARY | 2022-04-27 07:35 | XMS_ITS | Encounter Summary ---
:1935 Author Organization [place] Address [facility] [place] [address] Care Team Providers Name Role Phone Christian Steiner MD Primary Care Provider Unavailable Christian Steiner MD Unavailable Unavailable Encounter Details Date Type Department Care Team Description 11/15/2019 Orders Only [facility] Humberto Good Malignant neoplasm of Urology Clinic Daniel Jimenez MD prostate (H) (Primary [address] [place] [address] [place] [address] [phone] Social History Tobacco Use Types Packs/Day Years [...] 06/18/2022 Ancillary Procedure Cardiology Abdi Bailey MD [address] [place] [address] (Wo rk) documented as of this encounter Results PSA Diag Urologic Phys (11/16/2019 8:57 AM CDT) P athologist Signature PSA Diag <0.04 0.00 - 11/16/2019 [facility] 4.00 ng/mL 9:18 AM CDT [facility] Comment: Test performed by chemiluminesc ent immunoassay using [employer] Specimen Anatomical Collection Method Collection Time Receive d Time (Source) Location / / Volume Laterality Blood specimen 11/16/2019 8:57 AM 020 8:58 (specimen) CDT AM CDT Humberto Good MD LAB - BLOOD ORDERABLES Performing Organization Address City/State/ZIP Code Phon e Number [facility] [address] [place] [address] [address] documented in this encounter Visit Diagnoses Diagnosis Malignant neoplasm of prostate (H) - Yadira carballo Malignant neoplasm of prostate documented in this encounter Care Teams Core Maker Helper Relationship Specialty Start Date End Date Christian Steiner MD PCP - General Internal Medicine 08/30/12 Christian Steiner MD Assigned PCP 08/11/12 02/22/21 documented as of this encounter
--- OUTSIDE RECORDS SUMMARY | 2022-04-27 07:35 | XMS_ITS | Encounter Summary ---
:1935 Author Organization [place] Address [facility]0 [facility] [place] [address] Care Team Providers Name Role Phone Christian Steiner MD Primary Care Provider Unavailable Christian Steiner MD Unavailable Unavailable Humberto Good MD Unavailable Ke Hernandes MD Unavailable Ina Sheriff MD Primary Care Provider [phone] Herson Licea MD Unavailable Ke Hernandes MD Unavailable Reason for Visit Reason Onset Date Comments other 11/13/2020 provider recommendat ions Encounter Details Date Type Department Care Team Description [facility] Yanique Jimenez MD recommendations) [address] [place] [address] [place] [id number] Social History Tobacco Use Types Packs/Day Years Used Date Smoking Tobacco: Former Cigarettes Quit : 02/29/1980 Smokeless Tobacco: Never Alcohol Use Standard Drinks/Week Comments Yes 0 (1 standard drink = 0.6 oz pure alcoho l) occasionally Sex Assigned at Date Recorded Not on file documented as of this encounter Miscellaneous Notes Telephone Encounter - Fareed Jauregui CMA - 11/13/2020 11:11 AM CDT I FORWARDED HIM TO THE SCHEDULERS. PT WANTS BV DOC. I SUGGESTED SANJAY CAUSEY OR NGUYEN. Ryan Jauregui CMA Telephone Encounter - Shani Keating - 11/13/2020 10:51 AM CDT [facility] Phone Message May a detailed message be left on voicemail: yes Reason for Call: Other: pt would like a recommendation on who he should see next when retires, he would like clinics recommendation only, thank you Action Taken: Message routed to: [facility] uro Travel Screening: Not Applicable documented in this encounter Plan of Treatment Upcoming Encounters Date Type Specialty Care Team Description 06/18/2022 Ancillary Procedure Cardiology Abdi Bailey MD [address] [place] [id number] (Wo rk) documented as of this encounter Visit Diagnoses Not on filedocumented in this encounter Care Teams Offender Employment Specialist Relationship Specialty Start Date End Date Christian Steiner MD PCP - General Internal Medicine 08/30/12 Ina Sheriff, PCP - General Family Medicine 01/30/21 [facility] [address] [place] [address] Christian Steiner MD Assigned PCP 08/11/12 02/22/21 Humberto Good, Assigned Surgical 04/05/20 02/01/21 MD Provider [address] [place] [address] Ke Hernandes, Assigned Heart and 04/28/20 10/11/21 MD Vascular Provider [address] [place] [address] Herson Licea, Assigned Surgical 02/02/21 MD Provider [address] [place] [address] Ke Hernandes, Assigned Heart and 12/13/21 MD Vascular Provider [address] [place], [place] [address] documented as of this encounter
--- OUTSIDE RECORDS SUMMARY | 2022-04-27 07:35 | XMS_ITS | Encounter Summary ---
:1935 Author Organization [place] Address [facility]0 [facility] [place] [address] Care Team Providers Name Role Phone Christian Steiner MD Primary Care Provider Unavailable Christian Steiner MD Unavailable Unavailable Encounter Details Date Type Department Care Team Description 02/21/2020 Travel Social History Tobacco Use Types Packs/Day [...] Ancillary Procedure Cardiology Abdi Bailey MD [address] [facility] [address] [place] [address] (Wo rk) documented as of this encounter Visit Diagnoses Not on filedocumented in this encounter Care Teams Justowriter Operator Relationship Specialty Start Date End Date Christian Steiner MD PCP - General Internal Medicine 08/30/12 Christian Steiner MD Assigned PCP 08/11/12 02/22/21 documented as of this encounter
--- OUTSIDE RECORDS SUMMARY | 2022-04-27 07:35 | XMS_ITS | Encounter Summary ---
:1935 Author Organization [place] Address [facility] [place] [address] Care Team Providers Name Role Phone Christian Steiner MD Primary Care Provider Unavailable Christian Steiner MD Unavailable Unavailable Humberto Good MD Unavailable Ke Hernandes MD Unavailable Reason for Visit Reason Onset Date Comments Refill Request 11/27/2020 Encounter Details Date Type Department Care Team Description 11/27/2020 Refill [facility] Urology Humberto Good, Refill Request Clinic Yanique BARRETT [address] [place] [address] [place] [address] (Wo rk) Social History Tobacco Use Types [...] 06/18/2022 Ancillary Procedure Cardiology Abdi Bailey MD [address] [place] [address] (Wo rk) documented as of this encounter Visit Diagnoses Diagnosis Prostate cancer (H) Malignant neoplasm of prostate documented in this encounter Care Teams Specialty Finishing Utility Person Relationship Specialty Start Date End Date Christian Steiner MD PCP - General Internal Medicine 08/30/12 Christian Steiner MD Assigned PCP 08/11/12 02/22/21 Humberto Good Assigned Surgical Provider 04/05/20 02/01/21 MD Tony [address] [place] [id number] Ke Hernandes, Assigned Heart and 04/28/20 10/11/21 Vascular Provider [address] [place] [address] documented as of this encounter
--- OUTSIDE RECORDS SUMMARY | 2022-04-27 07:35 | XMS_ITS | Encounter Summary ---
:1935 Author Organization [place] Address [address] [facility] [place] [address] Care Team Providers Name Role Phone Christian Steiner MD Primary Care Provider Unavailable Christian Steiner MD Unavailable Unavailable Humberto Good MD Unavailable Reason for Visit Reason Comments Annual Visit (Routine) - Closed Specialty Diagnoses / Procedures Referred By Contact Refer red To Contact Diagnoses Cardiac pacemaker in situ [facility] [address] [facility] [address] [place] [address] Referral ID Status Reason Start Date Expiration Date Visits Requ ested Visits Authorized [id number] Closed 02/21/2020 02/20/2021 1 1 Encounter Details Date Type Department Care Team Description 04/10/2020 Office Visit [facility] Ke Hernandes Hyperlip idemia LDL goal <100 (Primary Dx); Heart Clinic MD Dylan Cardiac pacemaker in situ; [place] [address] [place] [address] [facility] Hypertension goal BP (blood pressure) < 140/90 [address] [facility] [address] [place] [address] [place], [place] [phone] [address] (Work) [phone] Social History Tobacco Use Types Packs/Day Years [...] Sign Reading Time Taken Comments Blood Pressure 118/81 04/10/2020 4:09 PM CDT Pulse 88 04/10/2020 4:09 PM CDT Temperature - - Respiratory Rate - - Oxygen Saturation 99% 04/10/2020 4:09 PM CDT Inhaled Oxygen Concentration - - Weight 86.2 kg (190 lb 1.6 oz) 04/10/2020 4:09 PM CDT Height 182.9 cm (6') 04/10/2020 4:09 PM CDT Body Mass Index 25.78 04/10/2020 4:09 PM CDT documented in this encounter Progress Notes Ke Hernandes MD - 04/10/2020 4:15 PM CDT Electrophysiology/ Clinic Note H&P and Plan: REASON FOR VISIT: Electrophysiology evaluation. HISTORY OF PRESENT ILLNESS: Mr. 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 Today, he informs he continues to do well. He recently started having back pain and was a scheduled to have a spine MRI. Apparently, MRI was not done as there was a question whether or not he was in atrial fibrillation. Today, he informs to be completely asymptomatic and question the diagnosis of atrial fibrillation. Device was interrogated today and ruled out any episode of A. fib. He is ventricular paced 99% of the time and atrially paced 18% of the time. Lead parameters are stable. He has no other complaints during this visit and denies any symptoms such as chest pain, shortness of breath, lightheadedness, near-syncope or syncopal episode. Previous studies: -Echocardiogram (07/13/2016): Normal LV function. EF estimated at 55-60%. No significant valve disease. ASSESSMENT AND PLAN: 1. Device care. Continue device checks every 3 months. 2. Hypertension. Blood pressure is well controlled. Continue lisinopril. 3. Diabetes. No acute issues. Continue metformin. 4. Followup care. Follow up in clinic with me in a year or as needed. Ke Hernandes MD Physical Exam: Vitals: Ht 1.829 m (6') BMI 26.18 kg/m?? Constitutional: AAO x3. Pt is in [...] BY MOUTH DAILY 90 tablet 3 ??? bicalutamide (CASODEX) 50 MG tablet Take 1 tablet (50 mg) by mouth daily 90 tablet 4 ??? bicalutamide (CASODEX) 50 MG tablet TAKE 1 TABLET(50 MG) BY MOUTH DAILY 90 tablet 3 ??? bicalutamide (CASODEX) 50 MG tablet Take 1 tablet (50 mg) by mouth daily 90 tablet 3 ??? blood glucose (ACCU-CHEK FRANCISCO PLUS) test strip USE TO TEST EVERY DAY DIRECTED 100 strip 1 ??? Calcium Carbonate-Vitamin D (CALCIUM 600 + D OR) Take 1 tablet by mouth 2 times daily (with meals) ??? Cholecalciferol (VITAMIN D) 1000 UNITS capsule Take 2,000 Units by mouth daily ??? cinnamon 500 MG CAPS Take 1 capsule by mouth daily ??? Co-Enzyme Q-10 10 MG CAPS Take 1 capsule by mouth daily Dose of capsule unknown. ??? glipiZIDE (GLUCOTROL) 5 MG tablet Take 1 tablet (5 mg) by mouth daily 90 tablet 3 ??? lisinopril (PRINIVIL/ZESTRIL) 20 MG tablet TAKE 1 TABLET BY MOUTH DAILY 90 tablet 1 ??? metFORMIN (GLUCOPHAGE) 1000 MG tablet TAKE 1 TABLET BY MOUTH TWICE DAILY 60 tablet 3 ??? metFORMIN (GLUCOPHAGE) 1000 MG tablet TAKE [...] Rita Vargas ??? Number of children: 3 ??? Years of education: Not on file ??? 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 Financial resource strain: Not on file ??? Food insecurity Worry: Not on file Inability: Not on file ??? Transportation needs Medical: Not on file Non-medical: Not on file Tobacco Use ??? Smoking status: Former Smoker Quit date: 02/29/1980 Years since quittin.1 ??? Smokeless tobacco: Never Used Substance and Sexual Activity ??? Alcohol use: Yes Comment: occasionally ??? Drug use: No ??? Sexual activity: Yes Partners: Female Lifestyle ??? Physical activity Days per week: Not on file Minutes per session: Not on file ??? Stress: Not on file Relationships ??? Social connections Talks on phone: Not on file Gets together: Not on file Attends congregation service: Not on file Active member of club or organization: Not on file Attends meetings of clubs or organizations: Not on file Relationship status: Not on file ??? Intimate partner violence Fear of current or ex partner: Not on file Emotionally abused: Not on file Physically abused: Not on file Forced sexual activity: Not on file Other Topics Concern ??? Parent/sibling w/ CABG, [place] or angioplasty before 65F 55M? Not Asked Social History Narrative has diabetes also Review [...] this encounter. There are no discontinued medications. Encounter Diagnosis Name Primary? Cardiac pacemaker in situ CC Ke Hernandes MD [address] [place] [address] documented in this encounter Plan of Treatment Upcoming Encounters Date Type Specialty Care Team Description 06/18/2022 Ancillary Procedure Cardiology Abdi Bailey MD [address] [place] [address] (Wo rk) documented as of this encounter Visit Diagnoses Diagnosis Hyperlipidemia LDL goal <100 - Primary Other and unspecified hyperlipidemia Cardiac pacemaker in situ Hypertension goal BP (blood pressure) < 140/90 Unspecified essential hypertension documented in this encounter Care Teams Mortgage Loan Reviewer Relationship Specialty Start Date End Date Christian Steiner MD PCP - General Internal Medicine 08/30/12 Christian Steiner MD Assigned PCP 08/11/12 02/22/21 Humberto Good Assigned Surgical Provider 04/05/20 02/01/21 MD Tony [address] [place] [address] documented as of this encounter
--- OUTSIDE RECORDS SUMMARY | 2022-04-27 07:35 | XMS_ITS | Encounter Summary ---
:1935 Author Organization [place] Address Count includes the [facility] [place] [address] Care Team Providers Name Role Phone Christian Steiner MD Primary Care Provider Unavailable Christian Steiner MD Unavailable Unavailable Reason for Visit Reason Comments Prostate Cancer Encounter Details Date Type Department Care Team Description 11/21/[address] [facility] Prostate cancer (H) Urology Clinic [place] Jimenez MD (Primary Dx) [address] [place] [address] [place] [address] [place] [id number] [phone] Social History Tobacco Use Types Packs/Day Years [...] Sign Reading Time Taken Comments Blood Pressure - - Pulse - - Temperature - - Respiratory Rate - - Oxygen Saturation - - Inhaled Oxygen Concentration - - Weight 87.5 kg (193 lb) 11/21/2019 3:02 PM CDT Height 182.9 cm (6') 11/21/2019 3:02 PM CDT Body Mass Index 26.18 11/21/2019 3:02 PM CDT documented in this encounter Progress Notes Janeth Good MD - 11/21/2019 2:30 PM CDT Janeth See is a 84 year old male who is being evaluated via a billable telephone visit. The patient has been notified of following: This telephone visit will be conducted via a call between you and your physician/provider. We have found that certain health care needs can be provided without the need for a physical exam. This service lets us provide the care you need with a short phone conversation. If a prescription is necessary we can send it directly to your pharmacy. If lab work is needed we can place an order for that and you can then stop by our lab to have the test done at a later time. Telephone visits are billed at different rates depending on your insurance coverage. During this emergency period, for some insurers they may be billed the same as an in-person visit. Please reach out to your insurance provider with any questions. If during the course of the call the physician/provider feels a telephone visit is not appropriate, you will not be charged for this service. Patient has given verbal consent for Telephone visit? Yes What phone number would you like to be contacted at? [phone] How would you like to obtain your AVS? Mail a copy History: It is a pleasure to have the opportunity to to have a telephone consultation with this verypleasant 84-year-old gentleman. 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 At that timehe was treated by brachytherapy with an external beam boost and 3 years of hormonal treatment. However in 2012 the PSA began to rise and at that time he was started on androgen ablation without obvious evidence of metastases at the time of this treatment included both Eligard 45 and Casodex 50 mg daily. It is now 4 years since his last Eligard injection although we have been continuing with Casodex 50 mg daily.. PSA is now as follows. Results for JANETH SEE ( ) as of 11/21/2019 15:41 Ref. Range 09/07/2016 13:35 03/09/2017 13:47 09/06/2017 12:51 09/07/2018 09:24 11/16/2019 08:57 PSA Diag Urologic Phys Latest Ref Range: 0.00 - 4.00 ng/mL <0.04... <0.04 <0.04 <0.04 <0.04 He continues to make excellent biochemical progress. He has no other major complaints today. There is no evidence of gross hematuria. His general health is otherwise stable Past Medical History: Diagnosis Date ??? Diabetes mellitus (H) Type II dx approx. 2004 ? High cholesterol ??? Hypertension ??? Malignant neoplasm of prostate (H) 2002 Prostate cancer; radioactive seeds ; Dr. Mckee; casodex in 2012 Social History Socioeconomic History ??? Marital status: Spouse name: Rita Vargas ??? Number of children: 3 ??? Years of education: Not on file ??? 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 Financial resource strain: Not on file ??? Food insecurity Worry: Not on file Inability: Not on file ??? Transportation needs Medical: Not on file Non-medical: Not on file Tobacco Use ??? Smoking status: Former Smoker Last attempt to quit: 02/29/1980 Years since quittin.7 ??? Smokeless tobacco: Never Used Substance and Sexual Activity ??? Alcohol use: Yes Comment: occasionally ??? Drug use: No ??? Sexual activity: Yes Partners: Female Lifestyle ??? Physical activity Days per week: Not on file Minutes per session: Not on file ??? Stress: Not on file Relationships ??? Social connections Talks on phone: Not on file Gets together: Not on file Attends episcopal service: Not on file Active member of club or organization: Not on file Attends meetings of clubs or organizations: Not on file Relationship status: Not on file ??? Intimate partner violence Fear of current or ex partner: Not on file Emotionally abused: Not on file Physically abused: Not on file Forced sexual activity: Not on file Other Topics Concern ??? Parent/sibling w/ CABG, VA or angioplasty before 65F 55M? Not Asked Social History Narrative has diabetes also Past Surgical History: Procedure Laterality Date ??? COLONOSCOPY N/A 04/07/2016 Procedure: COLONOSCOPY; Surgeon: Aldo Clarke MD; Location: [facility] ??? EXCISE MASS BACK 03/06/2013 Procedure: EXCISE MASS BACK; Excision Left Back Mass, and Right Back Mass; Surgeon: Abdirashid King MD; Location: [facility] OR ??? GENITOURINARY SURGERY prostate ??? IMPLANT PACEMAKER 06/2016 ??? PROSTATE SURGERY Family History Problem Relation Age of Onset ??? Diabetes Son type 2 DM age 50 ??? Cancer Brother Current Outpatient Medications: ??? aspirin 81 MG tablet, Take 1 tablet by mouth daily., Disp: , Rfl: ??? atorvastatin (LIPITOR) 40 MG tablet, TAKE 1 TABLET BY MOUTH DAILY, Disp: 90 tablet, Rfl: 3 ??? bicalutamide (CASODEX) 50 MG tablet, Take 1 tablet (50 mg) by mouth daily, Disp: 90 tablet, Rfl:4 ??? bicalutamide (CASODEX) 50 MG tablet, Take 1 tablet (50 mg) by mouth daily, Disp: 90 tablet, Rfl:3 ??? blood glucose (ACCU-CHEK FRANCISCO PLUS) test strip, USE TO TEST EVERY DAY DIRECTED, Disp: 100 strip, Rfl: 1 ??? Calcium Carbonate-Vitamin D (CALCIUM 600 + D OR), Take 1 tablet by mouth 2 times daily (with meals) , Disp: , Rfl: ??? Cholecalciferol (VITAMIN D) 1000 UNITS capsule, Take 2,000 Units by mouth daily , Disp: , Rfl: ??? cinnamon 500 MG CAPS, Take 1 capsule by mouth daily, Disp: , Rfl: ??? Co-Enzyme Q-10 10 MG CAPS, Take 1 capsule by mouth daily Dose of capsule unknown., Disp: , Rfl: ??? glipiZIDE (GLUCOTROL) 5 MG tablet, Take 1 tablet (5 mg) by mouth daily, Disp: 90 tablet, Rfl: 3 ??? lisinopril (PRINIVIL/ZESTRIL) 20 MG tablet, TAKE 1 TABLET BY MOUTH DAILY, Disp: 90 tablet, Rfl: 1 ??? metFORMIN (GLUCOPHAGE) 1000 MG tablet, TAKE 1 TABLET BY MOUTH TWICE DAILY, Disp: 180 tablet, Rfl: 3 ??? Multiple Vitamin (DAILY MULTIVITAMIN PO), Take 1 tablet by mouth daily , Disp: , Rfl: ??? vitamin B complex with vitamin C (VITAMIN B COMPLEX) TABS, Take 1 tablet by mouth daily., Disp: , Rfl: ??? bicalutamide (CASODEX) 50 MG tablet, TAKE 1 TABLET(50 MG) BY MOUTH DAILY, Disp: 90 tablet, Rfl: 3 ??? metFORMIN (GLUCOPHAGE) 1000 MG tablet, TAKE 1 TABLET BY MOUTH TWICE DAILY, Disp: 60 tablet, Rfl:3 10 point ROS of systems including Constitutional, Eyes, Respiratory, Cardiovascular, Gastroenterology, Genitourinary, Integumentary, Muscularskeletal, Psychiatric and Neurologic were all negative except for pertinent positives noted in my HPI. Examination: Ht 1.829 m (6') Wt 87.5 kg (193 lb) BMI 26.18 kg/m?? General Impression: Very pleasant patient in no acute distress, well-oriented in time place and person and quite conversational Mental Status: Normal Impression: I reviewed the records in detail with him today. We went over his previous history. I note now that it is been 4 years since the last Eligard injection and is been maintained on Casodex 50 mg daily ever since with excellent biochemical control. I am very pleased with his progress. We did have a careful discussion about the need for ongoing surveillance. It is important that he contact me promptly if he observes gross hematuria, rectal bleeding or deterioration in his urinary symptoms.. I went over the entire situation with him in detail today. I answered many questions with him Plan: I will plan to see him in a year for PSA and examination Phone call duration: 12 minutes Janeth Good MD documented in this encounter Nursing Notes Anabella Phipps LPN - 11/21/2019 2:30 PM CDT Chief Complaint Patient presents with ??? Prostate Cancer Anabella Phipps LPN documented in this encounter Plan of Treatment Upcoming Encounters Date Type Specialty Care Team Description 06/18/2022 Ancillary Procedure Cardiology Abdi Bailey MD [address] [place] [id number] (Wo rk) documented as of this encounter Visit Diagnoses Diagnosis Prostate cancer (H) - Primary Malignant neoplasm of prostate documented in this encounter Care Teams Machine Rebuilder Relationship Specialty Start Date End Date Christian Steiner MD PCP - General Internal Medicine 08/30/12 Christian Steiner MD Assigned PCP 08/11/12 02/22/21 documented as of this encounter
--- OUTSIDE RECORDS SUMMARY | 2022-04-27 07:35 | XMS_ITS | Encounter Summary ---
:1935 Author Organization [place] Address [address] [place] [address] Care Team Providers Name Role Phone Christian Stiener MD Primary Care Provider Unavailable Christian Steiner MD Unavailable Unavailable Humberto Good MD Unavailable Reason for Referral CV Testing (Routine) - Closed Specialty Diagnoses / Procedures Referred By Contact Refer red To Contact Diagnoses Atrioventricular block, complete (H) Cardiac pacemaker in situ Cv Cardiac Services Procedures Cardiac Device Check - In Clinic [address] [place] [address] Referral ID Status Reason Start Date Expiration Date Visits Requ ested Visits Authorized [id number] Closed 04/10/2020 04/10/2021 1 1 Encounter Details Date Type Department Care Team Description 04/10/2020 Orders Only [facility] Liza Browne Atriove ntricular block, complete (H) (Primary Dx); Heart Clinic T, quality intern pacemak er in situ [place] [address] [place] [address] Social History Tobacco Use Types Packs/Day Years [...] [address] [place] [address] (Wo rk) documented as of this encounter Results COURTESY DEVICE CHECK (04/10/2020 4:43 PM CDT) Component Value Ref Test Analysis Performed Pathologis t Range Method Time At Signature Date Time [id number] [employer]TRONIC Interrogation Session Implantable Medtronic MEDTRONIC Pulse Generator Carrier Packer Implantable [id number] [employer]TRONIC Pulse Generator MRI Model Implantable [id number] MEDTRONIC Pulse Generator Serial Number Type In Clinic [facility]ONIC Interrogation Session Clinic Name [facility] MEDTRONIC Implantable Pacemaker MEDTRONIC Pulse Generator Type Implantable [id number] MEDTRONIC Pulse Generator Implant Date Implantable Lead Medtronic MEDTRONIC Carrier Packer Implantable Lead 5076 CapSureFix MEDTRON IC Model Novus MRI SureScan Implantable Lead [id number] MEDTRONIC Serial Number Implantable Lead [id number] MEDTRONIC Implant Date Implantable Lead Bipolar Lead MEDTRONIC Polarity Type Implantable Lead UNKNOWN MEDTRONIC Location Detail 1 Implantable Lead Right Atrium MEDTRONIC Location Implantable Lead Medtronic MEDTRONIC Carrier Packer Implantable Lead 5076 CapSureFix MEDTRON IC Model Novus MRI SureScan Implantable Lead [id number] [employer]ONIC Serial Number Implantable Lead [id number] MEDTRONIC [...] 456 ohm MEDTRONIC Impedance Value Lead Channel 8.5 mV [employer]TRONIC Sensing Intrinsic Amplitude Lead Channel 8.5 mV MEDTRONIC Sensing Intrinsic Amplitude Lead Channel 0.5 V MEDTRONIC Pacing Threshold Amplitude Lead Channel 0.4 ms [employer]TRONIC Pacing Threshold Pulse Width Battery Date [id number] MEDTRONIC Time of Measurements Battery Status OK [employer] Battery MANAGER CT 2.83 [employer]IC Trigger Battery 64 mo MEDTRONIC Remaining Longevity Battery Voltage 3.00 V MEDTRONIC Irving Statistic [id number] MEDTRONIC Date Time Start Irving Statistic [id number] MEDTRONIC Date Time End Irving Statistic 7.3 % MEDTRONIC RA Percent Paced Irving Statistic 99.03 % MEDTRONIC RV Percent Paced Irving Statistic 7.31 % MEDTRONIC AP PLANT ATTENDANT Percent Irving Statistic 92.36 % MEDTRONIC PLANT ATTENDANT Percent Irving Statistic 0 % MEDTRONIC AP VS Percent Irving Statistic 0.32 % MEDTRONIC VS Percent Atrial Tachy [id number] MEDTRONIC Statistic Date Time Start Atrial Tachy [id number] MEDTRONIC Statistic Date Time End Atrial Tachy 0 % MEDTRONIC Statistic AT/AF [place] Percent Episode 0 MEDTRONIC Statistic Recent Count Episode AT/AF MEDTRONIC Statistic Type Category Episode 0 MEDTRONIC Statistic Recent Count Episode SVT MEDTRONIC Statistic Type Category Episode 0 MEDTRONIC Statistic Recent Count Episode VT MEDTRONIC Statistic Type Category Episode 0 MEDTRONIC Statistic Recent Count Episode VT MEDTRONIC Statistic Type Category Episode [id number] MEDTRONIC Statistic Recent Date Time Start Episode [id number] MEDTRONIC Statistic Recent Date Time End Episode [id number] MEDTRONIC Statistic Recent Date Time Start Episode [id number] MEDTRONIC Statistic Recent Date Time End Episode [id number] [employer]TRONIC Statistic Recent Date Time Start Episode [id number] MEDTRONIC Statistic Recent Date Time End Episode [id number] MEDTRONIC Statistic Recent Date Time Start Episode [id number] MEDTRONIC Statistic Recent Date Time End Episode 1 MEDTRONIC Statistic Total Count Episode AT/AF MEDTRONIC Statistic Type Category Episode 0 MEDTRONIC Statistic Total Count Episode SVT MEDTRONIC Statistic Type Category Episode 1 MEDTRONIC Statistic Total Count Episode VT MEDTRONIC Statistic Type Category Episode 0 MEDTRONIC Statistic Total Count Episode VT MEDTRONIC Statistic Type Category Episode [id number] MEDTRONIC Statistic Total Date Time Start Episode [id number] MEDTRONIC Statistic Total Date Time End Episode [id number] MEDTRONIC Statistic Total Date Time Start Episode [id number] MEDTRONIC Statistic Total Date Time End Episode [id number] MEDTRONIC Statistic Total Date Time Start Episode [id number] MEDTRONIC Statistic Total Date Time End Episode [id number] MEDTRONIC Statistic Total Date Time Start Episode [id number] MEDTRONIC Statistic Total Date Time End Anatomical Region Laterality Modality Other Specimen (Source) Anatomical Collection Method Collection Time Re ceived Time Location / / Volume Laterality 04/10/2020 4:33 PM CDT Narrative 04/12/2020 1:25 PM CDT Medtronic Advisa (D) Pacemaker Device Check - Courtesy Check per Dr. Hernandes to check for AF. ??No AF/AFL episodes re corded. ??Device check details as below. Patient seen in clinic for device evalua tion and iterative programming. AP: 2.3% PLANT ATTENDANT: 99.7% Mode: DDD 60-130 Presenting Rhythm: /PLANT ATTENDANT rhythm in the 8 0's Heart Rate: Stable with good variability . ??HRs per histogram range from 60-160 and are primarily from 60-100. Battery Status: Estimated at 5 years rem aining Device Site: Well healed Atrial Arrhythmia: 0 Ventricular Arrhythmia: 0 Setting Change: None ?? Care Plan: Saw Dr. Hernandes in clinic today . ??Previously scheduled for remote device check on 05/27/20. ??[place], RN ?? I have reviewed and interpreted the colby ce interrogation, settings, programming and nurse's summary. The dev ice is functioning within normal device parameters. I agree with the curr ent findings, assessment and plan. Ke Hernandes MD CV CARDIAC SERVICES ORDERABL ES documented in this encounter Visit Diagnoses Diagnosis Atrioventricular block, complete (H) - P rimary Atrioventricular block, complete Cardiac pacemaker in situ Atrioventricular block, complete (H) Atrioventricular block, complete Cardiac pacemaker in situ documented in this encounter Care Teams Charcoal Unloader Relationship Specialty Start Date End Date Christian Steiner MD PCP - General Internal Medicine 08/30/12 Christian Steiner MD Assigned PCP 08/11/12 02/22/21 Humberto Good Assigned Surgical Provider 04/05/20 02/01/21 MD Tony [address] [facility] [address] [place] [address] documented as of this encounter
--- OUTSIDE RECORDS SUMMARY | 2022-04-27 07:35 | XMS_ITS | Encounter Summary ---
:1935 Author Organization [place] Address [facility] [place] [address] Care Team Providers Name Role Phone Christian Steiner MD Primary Care Provider Unavailable Christian Steiner MD Unavailable Unavailable Humberto Good MD Unavailable Ke Hernandes MD Unavailable Reason for Visit CV Testing (Routine) - Closed Specialty Diagnoses / Procedures Referred By Contact Refer red To Contact Diagnoses Pacemaker Abdi Bailey MD Procedures Cardiac Device Check - Remote [address] [facility] [address] [place] [address] Referral ID Status Reason Start Date Expiration Date Visits Requ ested Visits Authorized [id number] Closed 02/21/2020 02/20/2021 1 1 Encounter Details Date Type Department Care Team Description 05/28/2020 Ancillary Procedure [facility] Abdi Bailey MD Pacemaker [facility] [address] [facility] Heart Care [address] [place], [place] [address] [facility] [address] [place] [address] [phone] Social History Tobacco Use Types Packs/Day Years [...] 06/18/2022 Ancillary Procedure Cardiology Abdi Bailey MD [address] [place] [address] (Wo rk) documented as of this encounter Procedures Procedure Name Priority Date/Time Associated Comments Diagnosis INTERROGATION DEVICE Routine 05/28/2020 9:56 AM Pacemaker R esults for this EVAL REMOTE PACER UP FRAME SAMPLE AND PATTERN SUPERVISOR procedu re are in TO 90 DAYS the results section. documented in this encounter Results INTERROGATION DEVICE EVAL REMOTE PACER UP TO 90 DAYS (05/28/2020 9:56 AM FRAME SAMPLE AND PATTERN SUPERVISOR) Component Value Ref Test Analysis Performed Pathologis t Range Method Time At Signature Date Time [id number] [employer]TR[employer]IC Interrogation Session Implantable Medtronic MEDTRONIC Pulse Generator Upholstery Sewer Implantable [id number] Advisa MEDTRONIC Pulse Generator MRI Model Implantable [id number] MEDTRONIC Pulse Generator Serial Number Type Remote MEDTRONIC Interrogation Session Clinic Name [facility] MEDTRONIC Implantable Pacemaker MEDTRONIC Pulse Generator Type Implantable [id number] MEDTRONIC Pulse Generator Implant Date Implantable Lead Medtronic MEDTRONIC Upholstery Sewer Implantable Lead 5076 CapSureFix MEDTRON IC Model Novus MRI SureScan Implantable Lead [id number] MEDTRONIC Serial Number Implantable Lead [id number] MEDTRONIC Implant Date Implantable Lead Bipolar Lead MEDTRONIC Polarity Type Implantable Lead UNKNOWN MEDTRONIC Location Detail 1 Implantable Lead Right Atrium MEDTRONIC Location Implantable Lead Medtronic MEDTRONIC Upholstery Sewer Implantable Lead 5076 CapSureFix MEDTRON IC Model Novus MRI SureScan Implantable Lead [id number] MEDTRONIC Serial Number Implantable Lead [id number] MEDTRONIC Implant Date Implantable Lead Bipolar Lead [...] 380 ohm MEDTRONIC Impedance Value Lead Channel 342 ohm MEDTRONIC Impedance Value Lead Channel 2.125 mV MEDTRONIC Sensing Intrinsic Amplitude Lead Channel 2.125 mV MEDTRONIC Sensing Intrinsic Amplitude Lead Channel 0.5 V MEDTRONIC Pacing Threshold Amplitude Lead Channel 0.4 ms MEDTRONIC Pacing Threshold Pulse Width Lead Channel 513 ohm MEDTRONIC Impedance Value Lead Channel 456 ohm MEDTRONIC Impedance Value Lead Channel 8.25 mV MEDTRONIC Sensing Intrinsic Amplitude Lead Channel 8.25 mV MEDTRONIC Sensing Intrinsic Amplitude Lead Channel 0.5 V MEDTRONIC Pacing Threshold Amplitude Lead Channel 0.4 ms MEDTRONIC Pacing Threshold Pulse Width Battery Date [id number] DriverSideTRONIC Time of Measurements Battery Status OK MEDTRONIC Battery THERAPIST SPEECH 2.83 MEDTRONIC Trigger Battery 64 mo MEDTRONIC Remaining Longevity Battery Voltage 3.00 V MEDTRONIC Irving Statistic [id number] MEDTRONIC Date Time Start Irving Statistic [id number] MEDTRONIC Date Time End Irving Statistic 18.73 % MEDTRONIC RA Percent Paced Irving Statistic 99.24 % MEDTRONIC RV Percent Paced Irving Statistic 18.79 % [employer]IC AP TRAVEL CLERK Percent Irving Statistic 80.97 % MEDTRONIC TRAVEL CLERK Percent [place] Statistic 0 % MEDTRONIC AP VS Percent Irving Statistic 0.24 % MEDTRONIC VS Percent Atrial Tachy [id number] MEDTRONIC Statistic Date Time Start Atrial Tachy [id number] MEDTRONIC Statistic Date Time End Atrial Tachy 0 % MEDTRONIC Statistic AT/AF [place] Percent Episode 0 MEDTRONIC Statistic Recent Count Episode AT/AF MEDTRONIC Statistic Type Category Episode 0 MEDTRONIC Statistic Recent Count Episode SVT MEDTRONIC Statistic Type Category Episode 0 MEDTRONIC Statistic Recent Count Episode VT MEDTRONIC Statistic Type Category Episode 0 MEDTRONIC Statistic Recent Count Episode VT MEDTRONIC Statistic Type Category Episode [id number] MEDTRONIC Statistic Recent Date Time Start Episode [id number] MEDTRONIC Statistic Recent Date Time End Episode [id number] MEDTRONIC Statistic Recent Date Time Start Episode [id number] MEDTRONIC Statistic Recent Date Time End Episode [id number] MEDTRONIC Statistic Recent Date Time Start Episode [id number] MEDTRONIC Statistic Recent Date Time End Episode [id number] MEDTRONIC Statistic Recent Date Time Start Episode [id number] MEDTRONIC Statistic Recent Date Time End Episode 1 MEDTRONIC Statistic Total Count Episode AT/AF MEDTRONIC Statistic Type Category Episode 0 MEDTRONIC Statistic Total Count Episode SVT MEDTRONIC Statistic Type Category Episode 1 MEDTRONIC Statistic Total Count Episode VT MEDTRONIC Statistic Type Category Episode 0 MEDTRONIC Statistic Total Count Episode VT MEDTRONIC Statistic Type Category Episode [id number] MEDTRONIC Statistic Total Date Time Start Episode [id number] MEDTRONIC Statistic Total Date Time End Episode [id number] MEDTRONIC Statistic Total Date Time Start Episode [id number] MEDTRONIC Statistic Total Date Time End Episode [id number] MEDTRONIC Statistic Total Date Time Start Episode [id number] MEDTRONIC Statistic Total Date Time End Episode [id number] MEDTRONIC Statistic Total Date Time Start Episode [id number] MEDTRONIC Statistic Total Date Time End Anatomical Region Laterality Modality Other Specimen (Source) Anatomical Collection Method Collection Time Re ceived Time Location / / Volume Laterality 05/28/2020 9:45 AM FRAME SAMPLE AND PATTERN SUPERVISOR Narrative 05/29/2020 3:09 PM FRAME SAMPLE AND PATTERN SUPERVISOR Medtronic Advisa MRI (D) Remote PPM Device Check AP: 19% TRAVEL CLERK: >99% Mode: DDD Presenting Rhythm: /TRAVEL CLERK Heart Rate: adequate heart rates per his togram Sensing: stable Pacing Threshold: stable Impedance: stable Battery Status: 4 - 6.5 years remaining Atrial Arrhythmia: 3 brief mode switch e pisodes, no EGMs available Ventricular Arrhythmia: none Care Plan: F/u PPM [facility] q 3 months. Gave results over the phone to CIRILO MunozT I have reviewed and interpreted the colby ce interrogation, settings, programming and nurse's summary. The dev ice is functioning within normal device parameters. I agree with the curr ent findings, assessment and plan. Abdi Bailey MD CV CARDIAC SERVICES ORDERABL ES documented in this encounter Visit Diagnoses Diagnosis Pacemaker Cardiac pacemaker in situ documented in this encounter Care Teams Bottle Labeler Relationship Specialty Start Date End Date Christian Steiner MD PCP - General Internal Medicine 08/30/12 Christian Steiner MD Assigned PCP 08/11/12 02/22/21 Humberto Good Assigned Surgical Provider 04/05/20 02/01/21 MD Tony [address] [place] [address] [place] [id number] eK Hernandes, Assigned Heart and 04/28/20 10/11/21 Vascular Provider [address] [place] [id number] documented as of this encounter
--- OUTSIDE RECORDS SUMMARY | 2022-04-27 07:35 | XMS_ITS | Encounter Summary ---
:1935 Author Organization [place] Address [facility] [place] [address] Care Team Providers Name Role Phone Christian Steiner MD Primary Care Provider Unavailable Christian Steiner MD Unavailable Unavailable Humberto Good MD Unavailable Reason for Visit CV Testing (Routine) - Closed Specialty Diagnoses / Procedures Referred By Contact Refer red To Contact Diagnoses Atrioventricular block, complete (H) Cardiac pacemaker in situ Cv Cardiac Services Procedures Cardiac Device Check - In Clinic [address] [place] [address] Referral ID Status Reason Start Date Expiration Date Visits Requ ested Visits Authorized [id number] Closed 04/10/2020 04/10/2021 1 1 Encounter Details Date Type Department Care Team Description 04/10/2020 Ancillary [facility] Ke Hernandes Atrioven tricular block, complete (H); Procedure Heart Clinic MD Dylan Cardiac pacemaker in situ [address] [address] [facility] [address] [place] [address] [place], [place] [phone] (Work) [phone] Social History Tobacco Use Types Packs/Day Years [...] [address] [place] [address] (Wo rk) documented as of this encounter Procedures Procedure Name Priority Date/Time Associated Diagnosis Comme nts CARDIAC DEVICE Routine 04/10/2020 4:43 Atrioventricular block, Results for this CHECK - IN CLINIC PM CDT complete (H) procedure are in Cardiac pacemaker in the res ults situ section. documented in this encounter Results COURTESY DEVICE CHECK (04/10/2020 4:43 PM CDT) Component Value Ref Test Analysis Performed Pathologis t Range Method Time At Signature Date Time [id number] [employer] Interrogation Session Implantable Medtronic [employer] Pulse Generator Sports Physician Implantable [id number] Advisa [employer] Pulse Generator MRI Model Implantable [id number] [employer] Pulse Generator Serial Number Type In Clinic [facility] Interrogation Session Clinic Name [facility] [employer] Implantable Pacemaker MEDTRONIC Pulse Generator Type Implantable [id number] [employer] Pulse Generator Implant Date Implantable Lead Medtronic MEDTR[employer]IC Sports Physician Implantable Lead 5076 CapSureFix MEDTRON IC Model Novus MRI SureScan Implantable Lead [id number] [employer] Serial Number Implantable Lead [id number] [employer]IC Implant Date Implantable Lead Bipolar Lead [employer] Polarity Type Implantable Lead UNKNOWN [employer] Location Detail 1 Implantable Lead Right Atrium [employer] Location Implantable Lead Medtronic [employer]IC Sports Physician Implantable Lead 5076 CapSureFix MEDTRON IC Model Novus MRI SureScan Implantable Lead [id number] [employer] Serial Number Implantable Lead [id number] [employer]IC [...] [employer]IC Pacing Threshold Pulse Width Battery Date [id number] [employer] Time of Measurements Battery Status OK [employer] Battery EMERGENCY DEPARTMENT PHYSICIAN 2.83 [employer] Trigger Battery 64 mo [employer] Remaining Longevity Battery Voltage 3.00 V [employer] Irving Statistic [id number] [employer] Date Time Start Irving Statistic [id number] [employer] Date Time End Irving Statistic 7.3 % [employer] RA Percent Paced Irving Statistic 99.03 % [employer] RV Percent Paced Irving Statistic 7.31 % [employer] AP SCENIC DESIGNER Percent Irving Statistic 92.36 % [employer] SCENIC DESIGNER Percent Irving Statistic 0 % [employer] AP VS Percent Irving Statistic 0.32 % [employer] VS Percent Atrial Tachy [id number] [employer] Statistic Date Time Start Atrial Tachy [id number] [employer] Statistic Date Time End Atrial Tachy 0 % [employer] Statistic AT/AF [place] Percent Episode 0 [employer] Statistic Recent Count Episode AT/AF [employer] Statistic Type Category Episode 0 [employer] Statistic Recent Count Episode SVT [employer]TR[employer]IC Statistic Type Category Episode 0 [employer] Statistic Recent Count Episode VT [employer]IC Statistic Type Category Episode 0 [employer] Statistic Recent Count Episode VT [employer]IC Statistic Type Category Episode [id number] [employer] Statistic Recent Date Time Start Episode [id number] [employer] Statistic Recent Date Time End Episode [id number] [employer] Statistic Recent Date Time Start Episode [id number] [employer] Statistic Recent Date Time End Episode [id number] [employer] Statistic Recent Date Time Start Episode [id number] [employer] Statistic Recent Date Time End Episode [id number] [employer] Statistic Recent Date Time Start Episode [id number] [employer]IC Statistic Recent Date Time End Episode 1 [employer]IC Statistic Total Count Episode AT/AF [employer] Statistic Type Category Episode 0 [employer]IC Statistic Total Count Episode SVT [employer]TR[employer]IC Statistic Type Category Episode 1 [employer] Statistic Total Count Episode VT [employer]IC Statistic Type Category Episode 0 [employer]IC Statistic Total Count Episode VT [employer]TR[employer]IC Statistic Type Category Episode [id number] [employer] Statistic Total Date Time Start Episode [id number] [employer] Statistic Total Date Time End Episode [id number] [employer] Statistic Total Date Time Start Episode [id number] [employer] Statistic Total Date Time End Episode [id number] [employer] Statistic Total Date Time Start Episode [id number] [employer] Statistic Total Date Time End Episode [id number] [employer] Statistic Total Date Time Start Episode [id number] [employer] Statistic Total Date Time End Anatomical [...] evalua tion and iterative programming. AP: 2.3% SCENIC DESIGNER: 99.7% Mode: DDD 60-130 Presenting Rhythm: /SCENIC DESIGNER rhythm in the 8 0's Heart Rate: Stable with good variability . ??HRs per histogram range from 60-160 and are primarily from 60-100. Battery Status: Estimated at 5 years rem aining Device Site: Well healed Atrial Arrhythmia: 0 Ventricular Arrhythmia: 0 Setting Change: None ?? Care Plan: Saw Dr. Hernandes in clinic today . ??Previously scheduled for remote device check on 05/27/20. ??TYSHAWN Paulino ?? I have reviewed and interpreted the colby ce interrogation, settings, programming and nurse's summary. The dev ice is functioning within normal device parameters. I agree with the curr ent findings, assessment and plan. Ke Hernandes MD CV CARDIAC SERVICES ORDERABL ES documented in this encounter Visit Diagnoses Diagnosis Atrioventricular block, complete (H) Atrioventricular block, complete Cardiac pacemaker in situ documented in this encounter Care Teams Android Architect Relationship Specialty Start Date End Date Christian Steiner MD PCP - General Internal Medicine 08/30/12 Christian Steiner MD Assigned PCP 08/11/12 02/22/21 Humberto Good Assigned Surgical Provider 04/05/20 02/01/21 MD Tony [address] [place] [id number] documented as of this encounter
--- OUTSIDE RECORDS SUMMARY | 2022-04-27 07:35 | XMS_ITS | Encounter Summary ---
:1935 Author Organization [place] Address [address] [facility]. [address] Care Team Providers Name Role Phone Christian Steiner MD Primary Care Provider Unavailable Christian Steiner MD Unavailable Unavailable Encounter Details Date Type Department Care Team Description 11/16/2019 Orders Only M [facility] Urology Ma lignant neoplasm of Clinic Daniel carcamo prostate (H) [address] [place] [address] Social History Tobacco Use Types Packs/Day Years [...] Procedure Cardiology Abdi Bailey MD [address] [place] [id number] (Wo rk) documented as of this encounter Procedures Procedure Name Priority Date/Time Associated Diagnosis Comme nts PSA DIAG UROLOGIC Routine 11/16/2019 8:57 AM Malignant neoplas m Results for this PHYS CDT of prostate (H) procedure ar e in the results section. documented in this encounter Results PSA Diag Urologic Phys (11/16/2019 8:57 AM CDT) P athologist Signature PSA Diag <0.04 0.00 - 11/16/2019 [facility] 4.00 ng/mL 9:18 AM CDT [facility] Comment: Test performed by chemiluminesc ent immunoassay using [employer] Specimen Anatomical Collection Method Collection Time Receive d Time (Source) Location / / Volume Laterality Blood specimen 11/16/2019 8:57 AM 020 8:58 (specimen) CDT AM CDT Humberto Good MD LAB - BLOOD ORDERABLES Performing Organization Address City/State/ZIP Code Phon e Number [facility] [address] [place] [address] [address] documented in this encounter Visit Diagnoses Diagnosis Malignant neoplasm of prostate (H) Malignant neoplasm of prostate documented in this encounter Care Teams Taxi Cab Driver Relationship Specialty Start Date End Date Christian Steiner MD PCP - General Internal Medicine 08/30/12 Christian Stiener MD Assigned PCP 08/11/12 02/22/21 documented as of this encounter
--- OUTSIDE RECORDS SUMMARY | 2022-04-27 07:35 | XMS_ITS | Encounter Summary ---
:1935 Author Organization [place] Address [address] [place] [address] Care Team Providers Name Role Phone Christian Steiner MD Primary Care Provider Unavailable Christian Steiner MD Unavailable Unavailable Reason for Visit CV Testing (Routine) - Closed Specialty Diagnoses / Procedures Referred By Contact Refer red To Contact Diagnoses Atrioventricular block, complete (H) [facility] Cv Cardiac Services Procedures Cardiac Device Check - In Clinic [address] [facility] [address] [place] [address] Referral ID Status Reason Start Date Expiration Date Visits Requ ested Visits Authorized [id number] Closed 11/14/2019 11/13/2020 1 1 Encounter Details Date Type Department Care Team Description 02/21/2020 Ancillary [facility] Abdi Bailey MD Atrioventricular block, Procedure Heart Clinic [address] [facility] (H) [facility] [address] [address] [facility] [address] [address] [place], [place] [phone] [address] (Work) [phone] Social History Tobacco Use Types Packs/Day Years [...] Bailey MD [address] [place] [address] (Wo rk) documented as of this encounter Procedures Procedure Name Priority Date/Time Associated Diagnosis Comme nts ICD DEVICE Routine 02/21/2020 9:14 Atrioventricular block, R esults for this PROGRAMMING EVAL, AM CDT complete (H) procedure are in DUAL LEAD ICD the results section. documented in this encounter Results ICD DEVICE PROGRAMMING EVAL, DUAL LEAD ICD (02/21/2020 9:14 AM CDT) Component Value Ref Test Analysis Performed Filtrbox t Range Method Time At Signature Date Time [id number] [employer] Interrogation Session Implantable Medtronic [employer] Pulse Generator Hair Dryer Implantable A2DR01 Advisa [employer] Pulse Generator MRI Model Implantable [id number] [employer] Pulse Generator Serial Number Type In Clinic [facility] Interrogation Session Clinic Name [facility] [employer] Implantable Pacemaker [employer]IC Pulse Generator Type Implantable [id number] [employer] Pulse Generator Implant Date Implantable Lead Medtronic MEDTRONIC Hair Dryer Implantable Lead 5076 CapSureFix MEDTRON IC Model Novus MRI SureScan Implantable Lead [id number] [employer] Serial Number Implantable Lead [id number] [employer]IC Implant Date Implantable Lead Bipolar Lead [employer] Polarity Type Implantable Lead UNKNOWN [employer] Location Detail 1 Implantable Lead Right Atrium [employer] Location Implantable Lead Medtronic [employer]IC Hair Dryer Implantable Lead 5076 CapSureFix MEDTRON IC Model Novus MRI SureScan Implantable Lead [id number] [employer] Serial Number Implantable Lead [id number] MEDTRONIC [...] 350 ms [employer] Detection Interval Lead Channel 513 ohm [employer]IC Impedance Value Lead Channel 399 ohm [employer]IC Impedance Value Lead Channel 2.125 mV [employer]IC Sensing Intrinsic Amplitude Lead Channel 2.125 mV [employer]IC Sensing Intrinsic Amplitude Lead Channel 0.5 V [employer] Pacing Threshold Amplitude Lead Channel 0.4 ms [employer]IC Pacing Threshold Pulse Width Lead Channel 0.5 V [employer] Pacing Threshold Amplitude Lead Channel 0.4 ms [employer]IC Pacing Threshold Pulse Width Lead Channel 589 ohm [employer]IC Impedance Value Lead Channel 513 ohm [employer]IC Impedance Value Lead Channel 5.5 mV [employer]IC Sensing Intrinsic Amplitude Lead Channel 7.375 mV [employer]IC Sensing Intrinsic Amplitude Lead Channel 0.5 V [employer] Pacing Threshold Amplitude Lead Channel 0.4 ms [employer]IC Pacing Threshold Pulse Width Lead Channel 0.5 V [employer]IC Pacing Threshold Amplitude Lead Channel 0.4 ms [employer] Pacing Threshold Pulse Width Battery Date [id number] [employer] Time of Measurements Battery Status [place] [employer] Battery MANAGER SURGICAL 2.83 [employer] Trigger Battery 66 mo [employer] Remaining Longevity Battery Voltage 3.00 V [employer] Irving Statistic [id number] [employer] Date Time Start Irving Statistic [id number] [employer] Date Time End Irving Statistic 18.41 % [employer] RA Percent Paced Irving Statistic 99.74 % [employer] RV Percent Paced Irving Statistic 18.49 % [employer] AP R D ENGINEER Percent Irving Statistic 81.42 % [employer] R D ENGINEER Percent Irving Statistic 0 % [employer] AP VS Percent Irving Statistic 0.09 % [employer] VS Percent Atrial Tachy [id number] [employer] Statistic Date Time Start Atrial Tachy [id number] [employer]IC Statistic Date Time End Atrial Tachy 0 % [employer]IC Statistic AT/AF [place] Percent Episode 0 [employer]IC Statistic Recent Count Episode AT/AF [employer] Statistic Type Category Episode 0 [employer]IC Statistic Recent Count Episode SVT [employer]TR[employer]IC Statistic Type Category Episode 0 [employer]IC Statistic Recent Count Episode VT [employer]TR[employer]IC Statistic Type Category Episode 0 [employer]TR[employer]IC Statistic Recent Count Episode VT MEDTRONIC Statistic Type Category Episode [id number] [employer]IC Statistic Recent Date Time Start Episode [id number] [employer]IC Statistic Recent Date Time End Episode [id number] [employer]IC Statistic Recent Date Time Start Episode [id number] [employer]IC Statistic Recent Date Time End Episode [id number] [employer]IC Statistic Recent Date Time Start Episode [id number] [employer] Statistic Recent Date Time End Episode [id number] [employer]TR[employer]IC Statistic Recent Date Time Start Episode [id number] [employer]IC Statistic Recent Date Time End Episode 1 [employer]IC Statistic Total Count Episode AT/AF [employer]IC Statistic Type Category Episode 0 MEDTRONIC Statistic Total Count Episode SVT MEDTRONIC Statistic Type Category Episode 1 MEDTR[employer]IC Statistic Total Count Episode VT MEDTRONIC Statistic Type Category Episode 0 MEDTRONIC Statistic Total Count Episode VT MEDTRONIC Statistic Type Category Episode [id number] [employer]ONIC Statistic Total Date Time Start Episode [id number] [employer]IC Statistic Total Date Time End Episode [id number] [employer]IC Statistic Total Date Time Start Episode [id number] [employer]IC Statistic Total Date Time End Episode [id number] [employer]IC Statistic Total Date Time Start Episode [id number] [employer] Statistic Total Date Time End Episode [id number] [employer] Statistic Total Date Time Start Episode [id number] [employer] Statistic Total Date Time End Anatomical Region Laterality Modality Other Specimen (Source) Anatomical Collection Method Collection Time Re ceived Time Location / / Volume Laterality 02/21/2020 8:55 AM CDT Narrative 02/28/2020 11:36 AM CDT Pacemaker Device Check : Medtronic Pam [place] Patient seen in clinic for device evalua tion and iterative programming. AP: 18% R D ENGINEER: 99% Mode: DDD 60 - 130 Underlying Rhythm: CHB with vent rate 30 s Heart Rate: Adequate variability per his togram and no c/o activity intolerance. Sensing: stable Pacing Threshold: stable Impedance: stable Battery Status: 5 years 6 months Device Site: will healed Atrial Arrhythmia: none Ventricular Arrhythmia: none Setting Change: none Care Plan: f/u 3 months remote PPM check and with Dr Hernandes in 3 months. I have reviewed and interpreted the colby ce interrogation, settings, programming and nurse's summary. The dev ice is functioning within normal device parameters. I agree with the curr ent findings, assessment and plan. Abdi Bailey MD CV CARDIAC SERVICES ORDERABL ES documented in this encounter Visit Diagnoses Diagnosis Atrioventricular block, complete (H) Atrioventricular block, complete documented in this encounter Care Teams Professional Sports Scout Relationship Specialty Start Date End Date Christian Steiner MD PCP - General Internal Medicine 08/30/12 Christian Steiner MD Assigned PCP 08/11/12 02/22/21 documented as of this encounter
--- OUTSIDE RECORDS SUMMARY | 2022-04-27 07:36 | XMS_ITS | Encounter Summary ---
:1935 Author Organization [place] Address [facility] [place] [address] Care Team Providers Name Role Phone Christian Steiner MD Primary Care Provider Unavailable Christian Steiner MD Unavailable Unavailable Reason for Referral CV Testing (Routine) - Closed Specialty Diagnoses / Procedures Referred By Contact Refer red To Contact Diagnoses Cardiac pacemaker in situ Ke Hernandes MD Procedures Cardiac Device Check - Remote Cardiac Device Check - In Clinic [address] [place] [address] [place] [address] Referral ID Status Reason Start Date Expiration Date Visits Requ ested Visits Authorized [id number] Closed 08/09/2019 08/08/2020 1 1 RVISORY INVESTIGATIVE SPECIALIST Reason for Visit CV Testing (Routine) - Closed Specialty Diagnoses / Procedures Referred By Contact Refer red To Contact Diagnoses Cardiac pacemaker in situ Ke Hernandes MD Procedures Cardiac Device Check - Remote [address] [place] [address] [place] [id number] Referral ID Status Reason Start Date Expiration Date Visits Requ ested Visits Authorized [id number] Closed 05/03/2019 05/02/2020 1 1 Encounter Details Date Type Department Care Team Description 08/09/2019 Ancillary Procedure [facility] Ke Hernandes ardiac pacemaker in [facility] MD Dylan situ [facility] [address] [place] [address] [facility] [address] [place] [address] [place] [phone] [id number] (Work) [phone] Social History Tobacco Use Types Packs/Day Years [...] [address] [place] [address] (Wo rk) documented as of this encounter Procedures Procedure Name Priority Date/Time Associated Comments Diagnosis INTERROGATION DEVICE Routine 08/09/2019 2:43 PM Cardiac pacema ker Results for this EVAL REMOTE PACER UP SUPERVISORY INVESTIGATIVE SPECIALIST in situ procedu re are in TO 90 DAYS the results section. documented in this encounter Results INTERROGATION DEVICE EVAL REMOTE PACER UP TO 90 DAYS (11/14/2019 3:47 PM CDT) Component Value Ref Test Analysis Performed Pathologis t Range Method Time At Signature Date Time [id number] [employer] Interrogation Session Implantable Medtronic [employer] Pulse Generator Wood Setter Implantable [id number] Advisa [employer] Pulse Generator MRI Model Implantable [id number] [employer] Pulse Generator Serial Number Type Remote [facility] Interrogation Session Clinic Name [facility] Implantable Pacemaker [facility] Pulse Generator Type Implantable [id number] [employer] Pulse Generator Implant Date Implantable Lead Medtronic [employer] Wood Setter Implantable Lead 5076 CapSureFix MEDTRON IC Model Novus MRI SureScan Implantable Lead [id number] [employer] Serial Number Implantable Lead [id number] [facility] Implant Date Implantable Lead Bipolar Lead [facility] Polarity Type Implantable Lead UNKNOWN [facility] Location Detail 1 Implantable Lead Right Atrium [facility] Location Implantable Lead Medtronic [employer] Wood Setter Implantable Lead 5076 CapSureFix MEDTRON IC Model Novus MRI SureScan Implantable Lead [id number] [employer] Serial Number Implantable Lead [id number] [facility]IC [...] 350 ms [facility] Detection Interval Lead Channel 494 ohm [facility] Impedance Value Lead Channel 380 ohm [facility] Impedance Value Lead Channel 1.75 mV [employer] Sensing Intrinsic Amplitude Lead Channel 1.75 mV [employer] Sensing Intrinsic Amplitude Lead Channel 0.625 V [facility] Pacing Threshold Amplitude Lead Channel 0.4 ms [employer] Pacing Threshold Pulse Width Lead Channel 513 ohm [facility] Impedance Value Lead Channel 456 ohm [facility] Impedance Value Lead Channel 6.625 mV [employer] Sensing Intrinsic Amplitude Lead Channel 6.625 mV [employer] Sensing Intrinsic Amplitude Lead Channel 0.5 V [facility] Pacing Threshold Amplitude Lead Channel 0.4 ms [employer] Pacing Threshold Pulse Width Battery Date [facility] Time of Measurements Battery Status OK [employer] 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 [employer] Trigger Battery 74 mo [employer] Remaining Longevity Battery Voltage 3.01 V [employer] Irving Statistic [id number] [facility] Date Time Start Irving Statistic [id number] [facility] Date Time End Irving Statistic 18.23 % [employer] RA Percent Paced Irving Statistic 99.67 % [employer] RV Percent Paced Irving Statistic 18.37 % [employer] AP TARP REPAIRER Percent Irving Statistic 81.52 % [employer] TARP REPAIRER Percent Irving Statistic 0 % [employer] AP VS Percent Irving Statistic 0.11 % [employer] VS Percent Atrial Tachy [id number] [employer] Statistic Date Time Start Atrial Tachy [id number] [facility] Statistic Date Time End Atrial Tachy 0 % [facility] Statistic AT/AF [place] Percent Episode 0 [facility] Statistic Recent Count Episode AT/AF [facility] Statistic Type Category Episode 0 [facility] Statistic Recent Count Episode SVT [facility] Statistic Type Category Episode 0 [facility] Statistic Recent Count Episode VT [facility] Statistic Type Category Episode 0 [facility] Statistic Recent Count Episode VT [facility] Statistic Type Category Episode [id number] [facility] Statistic Recent Date Time Start Episode [id number] [facility] Statistic Recent Date Time End Episode [id number] [facility] Statistic Recent Date Time Start Episode [id number] [facility] Statistic Recent Date Time End Episode [id number] [facility] Statistic Recent Date Time Start Episode [id number] [facility] Statistic Recent Date Time End Episode [id number] [facility] Statistic Recent Date Time Start Episode [id number] [facility] Statistic Recent Date Time End Episode 1 [facility] Statistic Total Count Episode AT/AF [facility] Statistic Type Category Episode 0 [facility] Statistic Total Count Episode SVT [facility] Statistic Type Category Episode 1 [facility] Statistic Total Count Episode VT [facility] Statistic Type Category Episode 0 [facility]IC Statistic Total Count Episode VT [facility]IC Statistic Type Category Episode [id number] [facility] Statistic Total Date Time Start Episode [id number] [facility] Statistic Total Date Time End Episode [id number] [facility] Statistic Total Date Time Start Episode [id number] [facility] Statistic Total Date Time End Episode [id number] [facility] Statistic Total Date Time Start Episode [id number] [facility] Statistic Total Date Time End Episode [id number] [facility] Statistic Total Date Time Start Episode [id number] [facility] Statistic Total Date Time End Anatomical Region Laterality Modality Other Specimen (Source) Anatomical Collection Method Collection Time Re ceived Time Location / / Volume Laterality 11/14/2019 1:04 PM CDT Narrative 11/23/2019 11:31 AM CDT Medtronic Advisa MRI (D) Remote PPM Device Check AP: 18% TARP REPAIRER: 100% Mode: DDD Presenting Rhythm: /TARP REPAIRER Heart Rate: adequate heart rates per his togram Sensing: stable Pacing Threshold: stable Impedance: stable Battery Status: 4.5 - 7 years remaining Atrial Arrhythmia: 4 brief mode switch e pisodes, no EGMs available Ventricular Arrhythmia: none Care Plan: Annual threshold scheduled in February. Gave results over the phone to pt. Pina CVT I have reviewed and interpreted the colby ce interrogation, settings, programming and nurse's summary. The dev ice is functioning within normal device parameters. I agree with the curr ent findings, assessment and plan. Ke Hernandes MD CV CARDIAC SERVICES ORDERABL ES INTERROGATION DEVICE EVAL REMOTE PACER UP TO 90 DAYS (08/09/2019 2:43 PM SUPERVISORY INVESTIGATIVE SPECIALIST) Component Value Ref Test Analysis Performed Pathologis t Range Method Time At Signature Date Time [id number] [employer] Interrogation Session Implantable Medtronic [employer] Pulse Generator Wood Setter Implantable [id number] Advisa [employer] Pulse Generator MRI Model Implantable [id number] [employer] Pulse Generator Serial Number Type Remote [facility] Interrogation Session Clinic Name [facility] Implantable Pacemaker [facility] Pulse Generator Type Implantable [id number] [employer] Pulse Generator Implant Date Implantable Lead Medtronic [employer] Wood Setter Implantable Lead 5076 CapSureFix MEDTRON IC Model Novus MRI SureScan Implantable Lead [id number] [facility] Serial Number Implantable Lead [id number] [facility] Implant Date Implantable Lead Bipolar Lead [facility] Polarity Type Implantable Lead UNKNOWN [facility] Location Detail 1 Implantable Lead Right Atrium [facility] Location Implantable Lead Medtronic [employer] Wood Setter Implantable Lead 5076 CapSureFix MEDTRON IC Model Novus MRI SureScan Implantable Lead [id number] [employer] Serial Number Implantable Lead [id number] [facility] Implant Date Implantable Lead Bipolar Lead [...] 350 ms [facility] Detection Interval Lead Channel 494 ohm [facility] Impedance Value Lead Channel 380 ohm [facility] Impedance Value Lead Channel 2 mV [employer] Sensing Intrinsic Amplitude Lead Channel 2 mV [employer] Sensing Intrinsic Amplitude Lead Channel 0.75 V [facility] Pacing Threshold Amplitude Lead Channel 0.4 ms [facility] Pacing Threshold Pulse Width Lead Channel 513 ohm [facility] Impedance Value Lead Channel 456 ohm [facility] Impedance Value Lead Channel 15 mV [facility] Sensing Intrinsic Amplitude Lead Channel 15 mV [facility] Sensing Intrinsic Amplitude Lead Channel 0.5 V [facility] Pacing Threshold Amplitude Lead Channel 0.4 ms [employer] Pacing Threshold Pulse Width Battery Date [facility] Time of Measurements Battery Status OK [employer] 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 [employer] 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 Battery 75 mo [employer] Remaining Longevity Battery Voltage 3.01 V [facility] Irving Statistic [id number] [facility] Date Time Start Irving Statistic [id number] [facility] Date Time End Irving Statistic 11.89 % [facility] RA Percent Paced Irving Statistic 99.89 % [employer] RV Percent Paced Irving Statistic 11.92 % [employer] AP TARP REPAIRER Percent Irving Statistic 88.02 % [employer] TARP REPAIRER Percent Irving Statistic 0 % [employer] AP VS Percent Irving Statistic 0.07 % [facility] VS Percent Atrial Tachy [id number] [facility] Statistic Date Time Start Atrial Tachy [id number] [facility] Statistic Date Time End Atrial Tachy 0 % [facility] Statistic AT/AF [place] Percent Episode 0 [facility] Statistic Recent Count Episode AT/AF [facility] Statistic Type Category Episode 0 [facility] Statistic Recent Count Episode SVT [facility] Statistic Type Category Episode 0 [facility] Statistic Recent Count Episode VT [facility] Statistic Type Category Episode 0 [facility] Statistic Recent Count Episode VT [facility] Statistic Type Category Episode [id number] [facility] Statistic Recent Date Time Start Episode [id number] [facility] Statistic Recent Date Time End Episode [id number] [facility] Statistic Recent Date Time Start Episode [id number] [facility] Statistic Recent Date Time End Episode [id number] [facility] Statistic Recent Date Time Start Episode [id number] [facility] Statistic Recent Date Time End Episode [id number] [facility] Statistic Recent Date Time Start Episode [id number] [facility] Statistic Recent Date Time End Episode 1 [facility] Statistic Total Count Episode AT/AF [facility] Statistic Type Category Episode 0 [facility] Statistic Total Count Episode SVT [facility] Statistic Type Category Episode 1 [facility] Statistic Total Count Episode VT [facility] Statistic Type Category Episode 0 [facility] Statistic Total Count Episode VT [facility] Statistic Type Category Episode [id number] [facility] Statistic Total Date Time Start Episode [id number] [facility] Statistic Total Date Time End Episode [id number] [facility] Statistic Total Date Time Start Episode [id number] [facility] Statistic Total Date Time End Episode [id number] [facility] Statistic Total Date Time Start Episode [id number] [facility] Statistic Total Date Time End Episode [id number] [facility] Statistic Total Date Time Start Episode [id number] [facility] Statistic Total Date Time End Anatomical Region Laterality Modality Other Specimen (Source) Anatomical Collection Method Collection Time Re ceived Time Location / / Volume Laterality 08/09/2019 11:27 AM SUPERVISORY INVESTIGATIVE SPECIALIST Narrative 08/22/2019 3:20 PM CDT Medtronic Advisa (D) Remote PPM Device Check AP: 12% TARP REPAIRER: 99.9% Mode: DDD Presenting Rhythm: /TARP REPAIRER Heart Rate: Adequate heart rates per his togram Sensing: stable ?? Pacing Threshold: stable Impedance: stable Battery Status: 6 years remaining (5-7) Atrial Arrhythmia: 8 mode switch episode s comprising <0.1% of the time. No EGM available. Ventricular Arrhythmia: none Care Plan: F/U annual threshold in 3 mon ths. Gave results to patient over the phone. Nicanor CVT I have reviewed and interpreted the colby ce interrogation, settings, programming and nurse's summary. The dev ice is functioning within normal device parameters. I agree with the curr ent findings, assessment and plan. 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
--- OUTSIDE RECORDS SUMMARY | 2022-04-27 07:36 | XMS_ITS | Encounter Summary ---
:1935 Author Organization [place] Address [facility] [place] [address] Care Team Providers Name Role Phone Christian Steiner MD Primary Care Provider Unavailable Christian Steiner MD Unavailable Unavailable Reason for Referral CV Testing (Routine) - Closed Specialty Diagnoses / Procedures Referred By Contact Refer red To Contact Diagnoses Cardiac pacemaker in situ Ke Hernandes MD Procedures Cardiac Device Check - Remote [address] [place] [address] Referral ID Status Reason Start Date Expiration Date Visits Requ ested Visits Authorized [id number] Closed 10/19/2018 10/19/2019 1 1 Reason for Visit CV Testing - Closed Specialty Diagnoses / Procedures Referred By Contact Refer red To Contact Diagnoses Heart block Ke Hernandes MD Procedures Cardiac Device Check - In Clinic [address] [place] [address] Referral ID Status Reason Start Date Expiration Date Visits Requ ested Visits Authorized [id number] Closed 07/27/2018 07/27/2019 1 1 Encounter Details Date Type Department Care Team Description 10/19/2018 Ancillary Procedure [facility] Ke Hernandes ardiac pacemaker in situ (Primary Dx); Heart Clinic MD Dylan Heart block [place] [address] [address] [employer] [address] [place] [address] [place], [place] [phone] (Work) [phone] Social History Tobacco Use Types Packs/Day Years [...] [address] [place] [address] (Wo rk) documented as of this encounter Procedures Procedure Name Priority Date/Time Associated Comments Diagnosis PM DEVICE PROGRAMMING Routine 10/19/2018 10:11 Heart block Re sults for this EVAL, DUAL LEAD PACER AM CDT proced ure are in the results section. documented in this encounter Results INTERROGATION DEVICE EVAL REMOTE PACER UP TO 90 DAYS (01/25/2019 11:20 AM CDT) Component Value Ref Test Analysis Performed Pathologis t Range Method Time At Signature Date Time [id number] [employer] Interrogation Session Implantable Medtronic [employer]TRONIC Pulse Generator Green Building Materials Distributor Implantable [id number] Advisa MEDTRONIC Pulse Generator MRI Model Implantable [id number] MEDTRONIC Pulse Generator Serial Number Type Remote MEDTRONIC Interrogation Session Clinic Name [facility] MEDTRONIC Implantable Pacemaker MEDTRONIC Pulse Generator Type Implantable [id number] MEDTRONIC Pulse Generator Implant Date Implantable Lead Medtronic MEDTRONIC Green Building Materials Distributor Implantable Lead 5076 CapSureFix MEDTRON IC Model Novus MRI SureScan Implantable Lead [id number] MEDTRONIC Serial Number Implantable Lead [id number] MEDTRONIC Implant Date Implantable Lead Bipolar Lead MEDTRONIC Polarity Type Implantable Lead UNKNOWN [employer]TRONIC Location Detail 1 Implantable Lead Right Atrium MEDTRONIC Location Implantable Lead Medtronic MEDTRONIC Green Building Materials Distributor Implantable Lead 5076 CapSureFix MEDTRON IC Model Novus MRI SureScan Implantable Lead [id number] [employer]IC Serial Number Implantable Lead [id number] MEDTRONIC [...] 380 ohm MEDTRONIC Impedance Value Lead Channel 1.875 mV MEDTRONIC Sensing Intrinsic Amplitude Lead Channel 1.875 mV MEDTRONIC Sensing Intrinsic Amplitude Lead Channel 0.75 V [employer]TRONIC Pacing Threshold Amplitude Lead Channel 0.4 ms [employer]TRONIC Pacing Threshold Pulse Width Lead Channel 551 ohm MEDTRONIC Impedance Value Lead Channel 494 ohm MEDTRONIC Impedance Value Lead Channel 8.875 mV MEDTRONIC Sensing Intrinsic Amplitude Lead Channel 8.875 mV MEDTRONIC Sensing Intrinsic Amplitude Lead Channel 0.5 V [employer]IC Pacing Threshold Amplitude Lead Channel 0.4 ms [employer]IC Pacing Threshold Pulse Width Battery Date [id number] [employer]IC Time of Measurements Battery Status OK [employer]TR[employer]IC Battery PENSION CONSULTANT 2.83 [employer]TR[employer]IC Trigger Battery 79 mo [employer]TR[employer]IC Remaining Longevity Battery Voltage 3.01 V MEDTRONIC Irving Statistic [id number] MEDTRONIC Date Time Start Irving Statistic [id number] MEDTRONIC Date Time End Irving Statistic 24.68 % [employer] RA Percent Paced Irving Statistic 99.77 % [employer]TR[employer]IC RV Percent Paced Irving Statistic 24.76 % [employer]IC AP CARD RUNNER Percent Irving Statistic 75.18 % [employer] CARD RUNNER Percent Irving Statistic 0 % [employer] AP VS Percent Irving Statistic 0.05 % [employer] VS Percent Atrial Tachy [id number] [employer]ONIC Statistic Date Time Start Atrial Tachy [id number] [employer]TR[employer]IC Statistic Date Time End Atrial Tachy 0 % MEDTRONIC Statistic AT/AF [place] Percent Episode 0 [employer]TRONIC Statistic Recent Count Episode AT/AF [employer]IC Statistic Type Category Episode 0 [employer]TRONIC Statistic Recent Count Episode SVT MEDTRONIC Statistic Type Category Episode 0 MEDTRONIC Statistic Recent Count Episode VT MEDTRONIC Statistic Type Category Episode 0 MEDTRONIC Statistic Recent Count Episode VT MEDTRONIC Statistic Type Category Episode [id number] [employer]ONIC Statistic Recent Date Time Start Episode [id number] [employer]IC Statistic Recent Date Time End Episode [id number] [employer]TRONIC Statistic Recent Date Time Start Episode [id number] [employer]TRONIC Statistic Recent Date Time End Episode [id number] [employer]IC Statistic Recent Date Time Start Episode [id number] [employer]TRONIC Statistic Recent Date Time End Episode [id number] [employer]TRONIC Statistic Recent Date Time Start Episode [id number] [employer]TRONIC Statistic Recent Date Time End Episode 1 [employer]IC Statistic Total Count Episode AT/AF [employer]TR[employer]IC Statistic Type Category Episode 0 MEDTRONIC Statistic Total Count Episode SVT MEDTRONIC Statistic Type Category Episode 1 MEDTRONIC Statistic Total Count Episode VT MEDTRONIC Statistic Type Category Episode 0 MEDTRONIC Statistic Total Count Episode VT MEDTRONIC Statistic Type Category Episode [id number] MEDTRONIC Statistic Total Date Time Start Episode [id number] [employer]TRONIC Statistic Total Date Time End Episode [id number] [employer]TRONIC Statistic Total Date Time Start Episode [id number] [employer]TRONIC Statistic Total Date Time End Episode [id number] [employer]TRONIC Statistic Total Date Time Start Episode [id number] [employer]IC Statistic Total Date Time End Episode [id number] [employer]IC Statistic Total Date Time Start Episode [id number] [employer]TRONIC Statistic Total Date Time End Anatomical Region Laterality Modality Other Specimen (Source) Anatomical Collection Method Collection Time Re ceived Time Location / / Volume Laterality 01/25/2019 4:05 PM CDT Narrative 02/01/2019 9:16 AM CDT Medtronic Advisa (D) Remote PPM Device CheckAP: 25%CARD RUNNER: 100%Mode: DDDPresenting Rhythm: /VPHeart Rate: A dequate rates per histogramSensing: stablePacing Threshold : stableImpedance: stableBattery Status: 5.5-7.5 yearsAtrial Arrhythmia: 3 brief mode switch episodes, no EGMsVentricular Arrhythmia: NoneCare Alan n: F/u PPM Carelink q 3 months. Gave patient results over the phone. ALEXANDRA Juarez have reviewed and interpreted the device interrogation, se ttings, programming and nurse's summary. The device is functioning withi n normal device parameters. I agree with the current findings, assessm ent and plan. Ke Hernandes MD CV CARDIAC SERVICES ORDERABL ES PM DEVICE PROGRAMMING EVAL, DUAL LEAD PACER (10/19/2018 10:11 AM CDT) Component Value Ref Test Analysis Performed Pathologis t Range Method Time At Signature Date Time [id number] [employer] Interrogation Session Implantable Medtronic MEDTRONIC Pulse Generator Green Building Materials Distributor Implantable [id number] Advisa MEDTRONIC Pulse Generator MRI Model Implantable [id number] [employer]IC Pulse Generator Serial Number Type In Clinic [facility] Interrogation Session Clinic Name [facility] [employer]TRONIC Implantable Pacemaker MEDTRONIC Pulse Generator Type Implantable [id number] MEDTRONIC Pulse Generator Implant Date Implantable Lead Medtronic MEDTRONIC Green Building Materials Distributor Implantable Lead 5076 CapSureFix MEDTRON IC Model Novus MRI SureScan Implantable Lead [id number] MEDTRONIC Serial Number Implantable Lead [id number] MEDTRONIC Implant Date Implantable Lead Bipolar Lead [employer]TRONIC Polarity Type Implantable Lead UNKNOWN [employer]TRONIC Location Detail 1 Implantable Lead Right Atrium MEDTRONIC Location Implantable Lead Medtronic MEDTRONIC Green Building Materials Distributor Implantable Lead 5076 CapSureFix MEDTRON IC Model Novus MRI SureScan Implantable Lead [id number] [employer]IC Serial Number Implantable Lead [id number] MEDTRONIC [...] 513 ohm MEDTRONIC Impedance Value Lead Channel 380 ohm MEDTRONIC Impedance Value Lead Channel 2.125 mV [employer]TR[employer]IC Sensing Intrinsic Amplitude Lead Channel 2 mV MEDTRONIC Sensing Intrinsic Amplitude Lead Channel 0.625 V [employer]TRONIC Pacing Threshold Amplitude Lead Channel 0.4 ms [employer]TRONIC Pacing Threshold Pulse Width Lead Channel 608 ohm MEDTRONIC Impedance Value Lead Channel 532 ohm MEDTRONIC Impedance Value Lead Channel 0.5 V [employer]TR[employer]IC Pacing Threshold Amplitude Lead Channel 0.4 ms [employer]TR[employer]IC Pacing Threshold Pulse Width Battery Date [employer]TRONIC Time of Measurements Battery Status OK [employer]TR[employer]IC Battery PENSION CONSULTANT 2.83 [employer]IC Trigger Battery 81 mo [employer]TR[employer]IC Remaining Longevity Battery Voltage 3.01 V [employer]TR[employer]IC Irving Statistic [id number] MEDTRONIC Date Time Start Irving Statistic [id number] MEDTRONIC Date Time End Irving Statistic 21.97 % MEDTRONIC RA Percent Paced Irving Statistic 99.70 % MEDTRONIC RV Percent Paced Irving Statistic 22.08 % [employer]TR[employer]IC AP CARD RUNNER Percent Irving Statistic 77.84 % [employer]TR[employer]IC CARD RUNNER Percent Irving Statistic 0 % [employer]TR[employer]IC AP VS Percent Irving Statistic 0.08 % [employer]IC VS Percent Atrial Tachy [id number] MEDTRONIC Statistic Date Time Start Atrial Tachy [id number] MEDTRONIC Statistic Date Time End Atrial Tachy 0 % MEDTRONIC Statistic AT/AF [place] Percent Episode 0 MEDTRONIC Statistic Recent Count Episode AT/AF [employer]TRONIC Statistic Type Category Episode 0 MEDTRONIC Statistic Recent Count Episode SVT MEDTRONIC Statistic Type Category Episode 0 MEDTRONIC Statistic Recent Count Episode VT MEDTRONIC Statistic Type Category Episode 0 MEDTRONIC Statistic Recent Count Episode VT MEDTRONIC Statistic Type Category Episode [id number] MEDTRONIC Statistic Recent Date Time Start Episode [id number] MEDTRONIC Statistic Recent Date Time End Episode [id number] MEDTRONIC Statistic Recent Date Time Start Episode [id number] MEDTRONIC Statistic Recent Date Time End Episode [id number] MEDTRONIC Statistic Recent Date Time Start Episode [id number] [employer]TRONIC Statistic Recent Date Time End Episode [id number] [employer]TRONIC Statistic Recent Date Time Start Episode [id number] MEDTRONIC Statistic Recent Date Time End Episode 1 MEDTRONIC Statistic Total Count Episode AT/AF [employer]TRONIC Statistic Type Category Episode 0 MEDTRONIC Statistic Total Count Episode SVT MEDTRONIC Statistic Type Category Episode 1 MEDTRONIC Statistic Total Count Episode VT MEDTRONIC Statistic Type Category Episode 0 MEDTRONIC Statistic Total Count Episode VT MEDTRONIC Statistic Type Category Episode [id number] MEDTRONIC Statistic Total Date Time Start Episode [id number] MEDTRONIC Statistic Total Date Time End Episode [id number] MEDTRONIC Statistic Total Date Time Start Episode [id number] MEDTRONIC Statistic Total Date Time End Episode [id number] MEDTRONIC Statistic Total Date Time Start Episode [id number] [employer]TRONIC Statistic Total Date Time End Episode [id number] MEDTRONIC Statistic Total Date Time Start Episode [id number] [employer]TRONIC Statistic Total Date Time End Anatomical Region Laterality Modality Other Specimen (Source) Anatomical Collection Method Collection Time Re ceived Time Location / / Volume Laterality 10/19/2018 2:51 PM CDT Narrative 11/15/2018 1:01 PM CDT Pacemaker Device Check Medtronic AdvisaAP: 22%CARD RUNNER: 100%Mode: DDD 60-130 bpmUnderlying Rhythm: SR with CHB, no ju nctional escapeHeart Rate: Stable with excellent variabilitySensing: WNL, dependent in the RVPacing Threshold: WNLImpedance: WNLBattery Stat us: Approximately 6.5 years longevityDevice Site: IntactAtrial Arrhy thmia:0Ventricular Arrhythmia:0Setting Change:0Care Plan: F ollow up with Q 3 month remote checks. DRI have reviewed and interprete d the device interrogation, settings, programming and nurse's summar y. The device is functioning within normal device parameters. I agree with the current findings, assessment and plan. Ke Hernandes MD CV CARDIAC SERVICES ORDERABL ES documented in this encounter Visit Diagnoses Diagnosis Cardiac pacemaker in situ - Primary Heart block Conduction disorder, unspecified Cardiac pacemaker in situ documented in this encounter Care Teams Clinical Resource Nurse Relationship Specialty Start Date End Date Christian Steiner MD PCP - General Internal Medicine 08/30/12 Christian Steiner MD Assigned PCP 08/11/12 02/22/21 documented as of this encounter
--- OUTSIDE RECORDS SUMMARY | 2022-04-27 07:36 | XMS_ITS | Encounter Summary ---
:1935 Author Organization [employer] Address [address] [facility] [place] [address] Care Team Providers Name Role Phone Christian Steiner MD Primary Care Provider Unavailable Christian Steiner MD Unavailable Unavailable Reason for Referral (Routine) - Closed Specialty Diagnoses / Procedures Referred By Contact Refer red To Contact Diagnoses Cardiac pacemaker in situ Ke Hernandes MD [address] [place] [address] Referral ID Status Reason Start Date Expiration Date Visits Requ ested Visits Authorized [id number] Closed 10/11/2019 10/10/2020 1 1 Encounter Details Date Type Department Care Team Description 10/11/2019 Orders Only [facility] Ke Hernandes Cardiac pacemaker in Heart Clinic Yanique Richardson MD situ (Primary Dx) [address] [facility] [address] [place] [phone] [place] [id number] Social History Tobacco Use Types Packs/Day Years Used Date Smoking Tobacco: Former Cigarettes Quit : 02/29/1980 Smokeless Tobacco: Never Alcohol Use Standard Drinks/Week Comments Yes 0 (1 standard drink = 0.6 oz pure alcoho l) occasionally Sex Assigned at Date Recorded Not on file COVID-19 Exposure Response Date Recorded In the last month, have you been in contact with No / Unsure 09/22/2019 3:00 PM CDT someone who was confirmed or suspected to have Coronavirus / COVID-19? documented as of this encounter Plan of Treatment Upcoming Encounters Date Type Specialty Care Team Description 06/18/2022 Ancillary Procedure Cardiology Abdi Bailey MD [address] [place] [address] (Wo rk) Scheduled Referrals Name Type Priority Associated Diagnoses Order S chedule Follow-Up with Referral Routine Cardiac pacemaker in Expec lashanda: Director Of Field Service situ 05/13/20 21 (Approximate), Expires: 11/17/2021 documented as of this encounter Visit Diagnoses Diagnosis Cardiac pacemaker in situ - Primary documented in this encounter Care Teams Field Hockey Coach Relationship Specialty Start Date End Date Christian Steiner MD PCP - General Internal Medicine 08/30/12 Christian Steiner MD Assigned PCP 08/11/12 02/22/21 documented as of this encounter
--- OUTSIDE RECORDS SUMMARY | 2022-04-27 07:36 | XMS_ITS | Encounter Summary ---
:1935 Author Organization [place] Address [address] [place] [address]. [place] [address] Care Team Providers Name Role Phone Christian Steiner MD Primary Care Provider Unavailable Christian Steiner MD Unavailable Unavailable Reason for Referral CV Testing (Routine) - Closed Specialty Diagnoses / Procedures Referred By Contact Refer red To Contact Diagnoses Atrioventricular block, complete (H) [facility] C[facility] Cardiac Services Procedures Cardiac Device Check - In Clinic [address] [facility] [address] [place] [phone] Referral ID Status Reason Start Date Expiration Date Visits Requ ested Visits Authorized [id number] Closed 11/14/2019 11/13/2020 1 1 Encounter Details Date Type Department Care Team Description 11/14/[address] [facility] Atrio ventricular block, [facility] complete (H) (Primary Dx) Heart Care [address] [facility] [address] [place] [phone] Social History Tobacco Use Types Packs/Day [...] Ancillary Procedure Cardiology Abdi Bailey MD [address] [facility] [address] [place] [id number] (Wo rk) documented as of this encounter Results ICD DEVICE PROGRAMMING EVAL, DUAL LEAD ICD (02/21/2020 9:14 AM CDT) Component Value Ref Test Analysis Performed Pathologis t Range Method Time At Signature Date Time [id number] [employer] Interrogation Session Implantable Medtronic [employer]TRONIC Pulse Generator Salon Designer Implantable [id number] [employer]TRONIC Pulse Generator MRI Model Implantable [id number] [employer]IC Pulse Generator Serial Number Type In Clinic [facility] Interrogation Session Clinic Name [facility] [employer]IC Implantable Pacemaker MEDTRONIC Pulse Generator Type Implantable [id number] MEDTRONIC Pulse Generator Implant Date Implantable Lead Medtronic MEDTRONIC Salon Designer Implantable Lead 5076 CapSureFix MEDTRON IC Model Novus MRI SureScan Implantable Lead [id number] [employer]ONIC Serial Number Implantable Lead [id number] MEDTRONIC Implant Date Implantable Lead Bipolar Lead [employer]IC Polarity Type Implantable Lead UNKNOWN [employer]IC Location Detail 1 Implantable Lead Right Atrium [employer]TR[employer]IC Location Implantable Lead Medtronic MEDTRONIC Salon Designer Implantable Lead 5076 CapSureFix MEDTRON IC Model Novus MRI SureScan Implantable Lead [id number] [employer] Serial Number Implantable Lead [id number] MEDTRONIC [...] MEDTRONIC Pacing Threshold Pulse Width Battery Date [id number] [employer] Time of Measurements Battery Status OK [employer]TR[employer]IC Battery EXTENSION FORESTER 2.83 [employer] Trigger Battery 66 mo [employer]IC Remaining Longevity Battery Voltage 3.00 V [employer]ONIC Irving Statistic [id number] 1spireTRONIC Date Time Start Irving Statistic [id number] [employer]IC Date Time End Irving Statistic 18.41 % [employer] RA Percent Paced Irving Statistic 99.74 % [employer] RV Percent Paced Irving Statistic 18.49 % [employer] AP STOREROOM KEEPER Percent Irving Statistic 81.42 % [employer]IC STOREROOM KEEPER Percent Irving Statistic 0 % [employer]IC AP VS Percent Irving Statistic 0.09 % [employer] VS Percent Atrial Tachy [id number] [employer]IC Statistic Date Time Start Atrial Tachy [id number] MEDTRONIC Statistic Date Time End Atrial Tachy 0 % MEDTRONIC Statistic AT/AF [place] Percent Episode 0 [employer]TRONIC Statistic Recent Count Episode AT/AF [employer]TRONIC Statistic Type Category Episode 0 MEDTRONIC Statistic Recent Count Episode SVT MEDTRONIC Statistic Type Category Episode 0 MEDTRONIC Statistic Recent Count Episode VT MEDTRONIC Statistic Type Category Episode 0 MEDTRONIC Statistic Recent Count Episode VT MEDTRONIC Statistic Type Category Episode [id number] [employer]ONIC Statistic Recent Date Time Start Episode [id number] [employer]TRONIC Statistic Recent Date Time End Episode [id number] MEDTRONIC Statistic Recent Date Time Start Episode [id number] [employer]TRONIC Statistic Recent Date Time End Episode [id number] MEDTRONIC Statistic Recent Date Time Start Episode [id number] MEDTRONIC Statistic Recent Date Time End Episode [id number] MEDTRONIC Statistic Recent Date Time Start Episode [id number] MEDTRONIC Statistic Recent Date Time End Episode 1 MEDTRONIC Statistic Total Count Episode AT/AF [employer]TRONIC Statistic Type Category Episode 0 MEDTRONIC Statistic Total Count Episode SVT MEDTRONIC Statistic Type Category Episode 1 MEDTRONIC Statistic Total Count Episode VT MEDTRONIC Statistic Type Category Episode 0 MEDTRONIC Statistic Total Count Episode VT MEDTRONIC Statistic Type Category Episode [id number] MEDTRONIC Statistic Total Date Time Start Episode [id number] MEDTRONIC Statistic Total Date Time End Episode [id number] MEDTRONIC Statistic Total Date Time Start Episode [id number] MEDTRONIC Statistic Total Date Time End Episode [id number] MEDTRONIC Statistic Total Date Time Start Episode [id number] MEDTRONIC Statistic Total Date Time End Episode [id number] [employer]IC Statistic Total Date Time Start Episode [id number] [employer]IC Statistic Total Date Time End Anatomical Region Laterality Modality Other Specimen (Source) Anatomical Collection Method Collection Time Re ceived Time Location / / Volume Laterality 02/21/2020 8:55 AM CDT Narrative 02/28/2020 11:36 AM CDT Pacemaker Device Check : Medtronic Pam [place] Patient seen in clinic for device evalua tion and iterative programming. AP: 18% STOREROOM KEEPER: 99% Mode: DDD 60 - 130 Underlying [...] (H) - P rimary Atrioventricular block, complete Atrioventricular block, complete (H) Atrioventricular block, complete documented in this encounter Care Teams Parts Inspector Relationship Specialty Start Date End Date Christian Steiner MD PCP - General Internal Medicine 08/30/12 Christian Steiner MD Assigned PCP 08/11/12 02/22/21 documented as of this encounter
--- OUTSIDE RECORDS SUMMARY | 2022-04-27 07:36 | XMS_ITS | Encounter Summary ---
:1935 Author Organization [facility] Address [facility] [place] [address] Care Team Providers Name Role Phone Christian Steiner MD Primary Care Provider Unavailable Christian Steiner MD Unavailable Unavailable Reason for Referral CV Testing (Routine) - Closed Specialty Diagnoses / Procedures Referred By Contact Refer red To Contact Diagnoses Cardiac pacemaker in situ Ke Hernandes MD Procedures Cardiac Device Check - Remote [address] [place] [address] [place] [address] Referral ID Status Reason Start Date Expiration Date Visits Requ ested Visits Authorized [id number] Closed 01/25/2019 01/25/2020 1 1 Reason for Visit CV Testing (Routine) - Closed Specialty Diagnoses / Procedures Referred By Contact Refer red To Contact Diagnoses Cardiac pacemaker in situ Ke Hernandes MD Procedures Cardiac Device Check - Remote [address] [place] [address] [place] [id number] Referral ID Status Reason Start Date Expiration Date Visits Requ ested Visits Authorized [id number] Closed 10/19/2018 10/19/2019 1 1 Encounter Details Date Type Department Care Team Description 01/25/2019 Ancillary Procedure [facility] Ke Hernandes ardiac pacemaker in [facility] MD Dylan situ [facility] [address] [place] [address] [place] [address] [place] [phone] (Work) [phone] Social History Tobacco Use Types Packs/Day Years [...] Procedure Cardiology Abdi Bailey MD [address] [place] [id number] (Wo rk) documented as of this encounter Procedures Procedure Name Priority Date/Time Associated Comments Diagnosis INTERROGATION DEVICE Routine 01/25/2019 11:20 Cardiac pacemake r Results for this EVAL REMOTE PACER UP AM CDT in situ procedu re are in TO 90 DAYS the results section. documented in this encounter Results INTERROGATION DEVICE EVAL REMOTE PACER UP TO 90 DAYS (05/03/2019 11:38 AM PROPERTY INSPECTOR) Component Value Ref Test Analysis Performed Pathologis t Range Method Time At Signature Date Time [id number] [employer] Interrogation Session Implantable Medtronic [employer] Pulse Generator Home School Teacher Implantable [id number] Advisa [employer] Pulse Generator MRI Model Implantable [id number] [employer] Pulse Generator Serial Number Type Remote [facility] Interrogation Session Clinic Name [facility] Implantable Pacemaker [employer] Pulse Generator Type Implantable [id number] [employer] Pulse Generator Implant Date Implantable Lead Medtronic [employer]IC Home School Teacher Implantable Lead 5076 CapSureFix MEDTRON IC Model Novus MRI SureScan Implantable Lead [id number] [employer] Serial Number Implantable Lead [id number] [employer] Implant Date Implantable Lead Bipolar Lead [employer] Polarity Type Implantable Lead UNKNOWN [employer] Location Detail 1 Implantable Lead Right Atrium [employer] Location Implantable Lead Medtronic [employer]IC Home School Teacher Implantable Lead 5076 CapSureFix MEDTRON IC Model Novus MRI SureScan Implantable Lead [id number] [employer] Serial Number Implantable Lead [id number] [employer] Implant Date Implantable Lead Bipolar Lead [...] [employer] Pacing Threshold Pulse Width Lead Channel 532 ohm [employer] Impedance Value Lead Channel 494 ohm [employer] Impedance Value Lead Channel 13.625 mV [employer] Sensing Intrinsic Amplitude Lead Channel 13.625 mV [employer] Sensing Intrinsic Amplitude Lead Channel 0.5 V [employer] Pacing Threshold Amplitude Lead Channel 0.4 ms [employer] Pacing Threshold Pulse Width Battery Date [id number] [employer] Time of Measurements Battery Status OK [employer] Battery CAREER CENTER DIRECTOR 2.83 [employer] Trigger Battery 77 mo [employer] Remaining Longevity Battery Voltage 3.01 V [employer] Irving Statistic [id number] [employer] Date Time Start Irving Statistic [id number] [employer] Date Time End Irving Statistic 15.04 % [employer] RA Percent Paced Irving Statistic 99.75 % [employer] RV Percent Paced Irving Statistic 15.07 % [employer] AP DAM WORKER Percent Irving Statistic 84.78 % [employer] DAM WORKER Percent Irving Statistic 0 % [employer] AP VS Percent Irving Statistic 0.15 % [employer] VS Percent Atrial Tachy [id number] [employer] Statistic Date Time Start Atrial Tachy [id number] [employer] Statistic Date Time End Atrial Tachy 0 % [facility] Statistic AT/AF [place] Percent Episode 0 [facility] Statistic Recent Count Episode AT/AF [facility] Statistic Type Category Episode 0 [facility] Statistic Recent Count Episode SVT [facility] Statistic Type Category Episode 0 [facility] Statistic Recent Count Episode VT [facility] Statistic Type Category Episode 0 [facility] Statistic Recent Count Episode VT [facility] Statistic Type Category Episode [id number] [facility] Statistic Recent Date Time Start Episode [id number] [facility] Statistic Recent Date Time End Episode [id number] [facility] Statistic Recent Date Time Start Episode [id number] [facility] Statistic Recent Date Time End Episode [id number] [facility] Statistic Recent Date Time Start Episode [id number] [facility] Statistic Recent Date Time End Episode [id number] [facility] Statistic Recent Date Time Start Episode [id number] [facility] Statistic Recent Date Time End Episode 1 [facility] Statistic Total Count Episode AT/AF [facility] Statistic Type Category Episode 0 [facility] Statistic Total Count Episode SVT [facility] Statistic Type Category Episode 1 [facility] Statistic Total Count Episode VT [facility]TR[facility]IC Statistic Type Category Episode 0 [facility]IC Statistic Total Count Episode VT [facility] Statistic Type Category Episode [id number] [facility] Statistic Total Date Time Start Episode [id number] [facility] Statistic Total Date Time End Episode [id number] [facility] Statistic Total Date Time Start Episode [id number] [facility] Statistic Total Date Time End Episode [id number] [facility] Statistic Total Date Time Start Episode [id number] [facility] Statistic Total Date Time End Episode [id number] [employer] Statistic Total Date Time Start Episode [id number] [facility] Statistic Total Date Time End Anatomical Region Laterality Modality Other Specimen (Source) Anatomical Collection Method Collection Time Re ceived Time Location / / Volume Laterality 05/03/2019 5:38 PM PROPERTY INSPECTOR Narrative 05/23/2019 5:09 PM PROPERTY INSPECTOR Medtronic Advisa (D) Remote PPM Device Check AP: 15% DAM WORKER: >99% Mode: DDD Presenting Rhythm: /DAM WORKER Heart Rate: Adequate rates per histogram Sensing: stable Pacing Threshold: stable Impedance: stable Battery Status: 5-7 years Atrial Arrhythmia: 5 brief mode switch e pisodes, no EGMs Ventricular Arrhythmia: none Care Plan: F/u PPM [facility] q 3 months. Gave patient results over the phone. NANCY Haddad I have reviewed and interpreted the colby [...] Range Method Time At Signature Date Time [id number] [employer] Interrogation Session Implantable Medtronic [employer] Pulse Generator Home School Teacher Implantable [id number] Advisa [employer] Pulse Generator MRI Model Implantable [id number] [employer] Pulse Generator Serial Number Type Remote [facility] Interrogation Session Clinic Name [facility]IC Implantable Pacemaker [employer]IC Pulse Generator Type Implantable [id number] [employer] Pulse Generator Implant Date Implantable Lead Medtronic [employer]IC Home School Teacher Implantable Lead 5076 CapSureFix MEDTRON IC Model Novus MRI SureScan Implantable Lead [id number] [employer] Serial Number Implantable Lead [id number] [facility]IC Implant Date Implantable Lead Bipolar Lead [facility] Polarity Type Implantable Lead UNKNOWN [facility] Location Detail 1 Implantable Lead Right Atrium [facility] Location Implantable Lead Medtronic [employer] Home School Teacher Implantable Lead 5076 CapSureFix MEDTRON IC Model Novus MRI SureScan Implantable Lead [id number] [employer] Serial Number Implantable Lead [id number] [employer] Implant Date Implantable Lead Bipolar Lead [...] of Measurements Battery Status OK [employer]IC Battery CAREER CENTER DIRECTOR 2.83 [employer] Trigger Battery 79 mo [employer]IC Remaining Longevity Battery Voltage 3.01 V [employer] Irving Statistic [id number] [employer]IC Date Time Start Irving Statistic [id number] [employer]IC Date Time End Irving Statistic 24.68 % [employer] RA Percent Paced Irving Statistic 99.77 % [employer] RV Percent Paced Irving Statistic 24.76 % [employer] AP DAM WORKER Percent Irving Statistic 75.18 % [employer] DAM WORKER Percent Irving Statistic 0 % [employer] AP VS Percent Irving Statistic 0.05 % [employer] VS Percent Atrial Tachy [id number] [employer] Statistic Date Time Start Atrial Tachy [id number] [employer]IC Statistic Date Time End Atrial Tachy 0 % [facility]IC Statistic AT/AF [place] Percent Episode 0 [facility]IC Statistic Recent Count Episode AT/AF [facility] Statistic Type Category Episode 0 [facility]IC Statistic Recent Count Episode SVT [facility]IC Statistic Type Category Episode 0 [facility]IC Statistic Recent Count Episode VT [facility]IC Statistic Type Category Episode 0 [facility]IC Statistic Recent Count Episode VT [facility]IC Statistic Type Category Episode [id number] [facility] Statistic Recent Date Time Start Episode [id number] [facility] Statistic Recent Date Time End Episode [id number] [facility] Statistic Recent Date Time Start Episode [id number] [facility] Statistic Recent Date Time End Episode [id number] [facility] Statistic Recent Date Time Start Episode [id number] [facility] Statistic Recent Date Time End Episode [id number] [facility]IC Statistic Recent Date Time Start Episode [id number] [facility]IC Statistic Recent Date Time End Episode 1 [facility]IC Statistic Total Count Episode AT/AF [facility] Statistic Type Category Episode 0 [facility]TR[employer]IC Statistic Total Count Episode SVT [facility]TR[facility]IC Statistic Type Category Episode 1 [facility]IC Statistic Total Count Episode VT [facility]TR[facility]IC Statistic Type Category Episode 0 [facility]TR[employer]IC Statistic Total Count Episode VT [facility]TR[facility]IC Statistic Type Category Episode [id number] [facility]IC Statistic Total Date Time Start Episode [id number] [facility]IC Statistic Total Date Time End Episode [id number] [facility]IC Statistic Total Date Time Start Episode [id number] [facility]IC Statistic Total Date Time End Episode [id number] [facility]IC Statistic Total Date Time Start Episode [id number] [facility] Statistic Total Date Time End Episode [id number] [employer] Statistic Total Date Time Start Episode [id number] [facility] Statistic Total Date Time End Anatomical Region Laterality Modality Other Specimen (Source) Anatomical Collection Method Collection Time Re ceived Time Location / / Volume Laterality 01/25/2019 4:05 PM CDT Narrative 02/01/2019 9:16 AM CDT Medtronic Advisa (D) Remote PPM Device CheckAP: 25%DAM WORKER: 100%Mode: DDDPresenting Rhythm: /VPHeart Rate: A dequate [...] situ documented in this encounter Care Teams Card Setter Relationship Specialty Start Date End Date Christian Steiner MD PCP - General Internal Medicine 08/30/12 Christian Steiner MD Assigned PCP 08/11/12 02/22/21 documented as of this encounter
--- OUTSIDE RECORDS SUMMARY | 2022-04-27 07:36 | XMS_ITS | Encounter Summary ---
:1935 Author Organization [facility] Address [address] [place] [address] Care Team Providers Name Role Phone Christian Steiner MD Primary Care Provider Unavailable Christian Steiner MD Unavailable Unavailable Christian Steiner MD Unavailable Unavailable Humberto Good MD Unavailable Ke Hernandes MD Unavailable Ina Sheriff MD Primary Care Provider [phone] Herson Licea MD Unavailable Ke Hernandes MD Unavailable Reason for Visit Reason Onset Date Comments Medication Refill 08/04/2018 LISINOPRIL 20MG TABL ETS Encounter Details Date Type Department Care Team Description 08/03/2018 Refill [facility] Christian Steiner, Medication Refill [facility] Reagan aguilar MD (LISINOPRIL 20MG [address] [facility] [address] [place] [address] Social History Tobacco Use Types Packs/Day Years Used Date Smoking Tobacco: Former Cigarettes Quit : 02/29/1980 Smokeless Tobacco: Never Alcohol Use Standard Drinks/Week Comments Yes 0 (1 standard drink = 0.6 oz pure alcoho l) occasionally Sex Assigned at Date Recorded Not on file documented as of this encounter Miscellaneous Notes Telephone Encounter - Sindy Pittman RN - 08/04/2018 4:14 PM CST Called pharmacy and gave verbal for this medication. MANAGEMENT NURSE Telephone Encounter - Ethel Olson RN - 08/04/2018 10:49 AM PAIN MANAGEMENT NURSE Duplicate. Denied. MANAGEMENT NURSE Telephone Encounter - Vesna Morrow LPN - 08/04/2018 9:59 AM CST Requested Prescriptions Pending Prescriptions Disp Refills ??? lisinopril (PRINIVIL/ZESTRIL) 20 MG tablet [Pharmacy Med Name: LISINOPRIL 20MG TABLETS] 90 tablet 0 Last Written Prescription Date: 08/03/2018 Last Fill Quantity: 90, # refills: 1 Last office visit: 02/16/2018 with prescribing provider: Dr. Steiner Future Office Visit: Sig: TAKE 1 TABLET BY MOUTH DAILY SAMSON Inhibitors (Including Combos) Protocol Passed - 08/03/2018 5:14 PM Passed - Blood pressure under 140/90 in past 12 months BP Readings from Last 3 Encounters: 02/16/18 136/84 09/29/17 122/74 09/06/17 118/68 Passed - Recent (12 mo) or future (30 days) visit within the authorizing provider's specialty Patient had office visit in the last 12 months or has a visit in the next 30 days with authorizing provider or within the authorizing provider's specialty. See Patient Info tab in inbasket, or Choose Columns in Meds & Orders section of the refill encounter. Passed - Medication is active on med list Passed - Patient is age 18 or older Passed - Normal serum creatinine on file in past 12 months Recent Labs Lab Test 02/16/18 0909 04/11/12 1306 CR 1.15 < > -- CREAT -- -- 1.0 < > = values in this interval not displayed. Passed - Normal serum potassium on file in past 12 months Recent Labs Lab Test 02/16/18 0909 POTASSIUM 4.4 MANAGEMENT NURSE documented in this encounter Plan of Treatment Upcoming Encounters Date Type Specialty Care Team Description 06/18/2022 Ancillary Procedure Cardiology Abdi Bailey MD [address] [place] [id number] (Wo rk) documented as of this encounter Visit Diagnoses Diagnosis Essential hypertension with goal blood p ressure less than 140/90 documented in this encounter Care Teams Oyster Washer Relationship Specialty Start Date End Date Christian Steiner MD PCP - General Internal Medicine 08/30/12 Christian Steiner MD PCP - Assigned PCP 08/11/1208/16/18 Ina Sheriff, PCP - General Family Medicine 01/30/[address] [address] Christian Steiner MD Assigned PCP 08/11/12 02/22/21 Humberto Good, Assigned Surgical 04/05/20 02/01/21 MD Provider [address] [place] [address] Ke Hernandes, Assigned Heart and 04/28/20 10/11/21 MD Vascular Provider [address] [place] [address] Herson Licea, Assigned Surgical 02/02/21 MD Provider [address] [place], [place] [address] Ke Hernandes, Assigned Heart and 12/13/21 MD Vascular Provider [address] [place] [address] documented as of this encounter
--- OUTSIDE RECORDS SUMMARY | 2022-04-27 07:36 | XMS_ITS | Encounter Summary ---
:1935 Author Organization [place] Address [facility] [place] [address] Care Team Providers Name Role Phone Christian Steiner MD Primary Care Provider Unavailable Christian Steiner MD Unavailable Unavailable Reason for Visit Reason Comments RECHECK Pt here for one year for PSA , Physical Exam, Testosterone. Encounter Details Date Type Department Care Team Description 09/07/2018 Office Visit [facility] Janeth Good Malignant neoplasm of Urology Clinic Daniel Jimenez MD prostate (H) [address] [place] [address] [place] [address] [phone] Social History Tobacco Use Types Packs/Day Years Used Date Smoking Tobacco: Former Cigarettes Quit : 02/29/1980 Smokeless Tobacco: Never Alcohol Use Standard Drinks/Week Comments Yes 0 (1 standard drink = 0.6 oz pure alcoho l) occasionally Sex Assigned at Date Recorded Not on file documented as of this encounter Last Filed Vital Signs Vital Sign Reading Time Taken Comments Blood Pressure 138/78 09/07/2018 9:51 AM CDT Pulse - - Temperature - - Respiratory Rate - - Oxygen Saturation - - Inhaled Oxygen Concentration - - Weight 93.4 kg (206 lb) 09/07/2018 9:51 AM CDT Height 182.9 cm (6') 09/07/2018 9:51 AM CDT Body Mass Index 27.94 09/07/2018 9:51 AM CDT documented in this encounter Progress Notes Janeth Good MD - 09/07/2018 9:45 AM CDT History: There is a great pleasure to see this very pleasant 83-year-old gentleman in follow-up consultation today. He was first diagnosed with high volume [...] Casodex 50 mg daily. It is now 3 years since his last Eligard injection although we have been continuing with Casodex 50 mg daily. Results for JANETH SEE ( ) as of 09/07/2018 14:34 Ref. Range 05/03/2012 00:00 03/03/2016 13:16 PSA Latest Ref Range: 0 - 4 ug/L 8.6 <0.01... Results for JANETH SEE ( ) as of 09/07/2018 14:34 Ref. Range 09/07/2016 13:35 03/09/2017 13:47 09/06/2017 12:51 09/07/2018 09:24 PSA Diag Urologic Phys Latest Ref Range: 0.00 - 4.00 ng/mL <0.04... <0.04 <0.04 <0.04 As can be seen he has maintained outstanding biochemical control of prostate cancer now for 3 years on this regime of treatment. He has no major complaints at this time. He is voiding well, the control of the urine is satisfactory and he has not observed blood in the urine He is taking vitamin D at this time which he will continue to do Past Medical History: Diagnosis Date ??? Diabetes mellitus (H) Type II dx approx. 2003 ? High cholesterol ??? Hypertension ??? Malignant neoplasm of prostate (H) 2002 Prostate cancer; radioactive seeds ; Dr. Mckee; casodex in 2012 Social History Socioeconomic History ??? Marital status: Spouse name: Rita Vargas ??? Number of children: 3 ??? Years of education: None ??? 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 Financial resource strain: None ??? Food insecurity: Worry: None Inability: None ??? Transportation needs: Medical: None Non-medical: None Tobacco Use ??? Smoking status: Former Smoker Last attempt to quit: 02/29/1980 Years since quittin.5 ??? Smokeless tobacco: Never Used Substance and Sexual Activity ??? Alcohol use: Yes Comment: occasionally ??? Drug use: No ??? Sexual activity: Yes Partners: Female Lifestyle ??? Physical activity: Days per week: None Minutes per session: None ??? Stress: None Relationships ??? Social connections: Talks on phone: None Gets together: None Attends scientologist service: None Active member of club or organization: None Attends meetings of clubs or organizations: None Relationship status: None ??? Intimate partner violence: Fear of current or ex partner: None Emotionally abused: None Physically abused: None Forced sexual activity: None Other Topics Concern ??? Parent/sibling w/ CABG, [place] or angioplasty before 65F 55M? Not Asked [...] ??? Cancer Brother Current Outpatient Medications: ??? atorvastatin (LIPITOR) 40 MG tablet, TAKE 1 TABLET BY MOUTH DAILY, Disp: 90 tablet, Rfl: 3 ??? bicalutamide (CASODEX) 50 MG tablet, Take 1 tablet (50 mg) by mouth daily, Disp: 90 tablet, Rfl:3 ??? bicalutamide (CASODEX) 50 MG tablet, Take 1 tablet (50 mg) by mouth daily, Disp: 90 tablet, Rfl:3 ??? blood glucose monitoring (ACCU-CHEK FRANCISCO PLUS) test strip, USE TO TEST EVERY DAY DIRECTED, Disp: 100 strip, Rfl: 3 ??? Calcium Carbonate-Vitamin D (CALCIUM 600 + D OR), Take 1 tablet by mouth 2 times daily (with meals) , Disp: , Rfl: ??? Cholecalciferol (VITAMIN D) 1000 UNITS capsule, Take 1 capsule by mouth daily., Disp: , Rfl: ??? cinnamon 500 MG [...] MOUTH TWICE DAILY, Disp: 60 tablet, Rfl:3 ??? metFORMIN (GLUCOPHAGE) 1000 MG tablet, TAKE 1 TABLET BY MOUTH TWICE DAILY, Disp: 180 tablet, Rfl: 3 ??? Multiple Vitamin (DAILY MULTIVITAMIN PO), Take 1 tablet by mouth daily , Disp: , Rfl: ??? vitamin B complex with vitamin C (VITAMIN B COMPLEX) TABS, Take 1 tablet by mouth daily., Disp: , Rfl: ??? aspirin 81 MG tablet, Take 1 tablet by mouth daily., Disp: , Rfl: 10 point ROS of systems including Constitutional, Eyes, Respiratory, Cardiovascular, Gastroenterology, Genitourinary, Integumentary, Muscularskeletal, Psychiatric were all negative except for pertinentpositives noted in my HPI. Examination: BP 138/78 Ht 1.829 m (6') Wt 93.4 kg (206 lb) BMI 27.94 kg/m?? General Impression: Very pleasant gentleman in no acute distress, well oriented in time place and person Mental Status: Normal. HEENT. There is no clinical evidence of jaundice, the mucous membranes are slightly pale but otherwise unremarkable Skin: A few senile keratoses on the face but no other remarkable features Respiratory System: The respiratory cycle is normal Lymph Nodes: Normal Back/Flank Tenderness: There is no significant flank tenderness, there is no tenderness over the spine and no evidence of kyphosis, scoliosis or lordosis Cardiovascular System: There is no significant peripheral edema Abdominal Examination: Unremarkable abdominal examination with no evidence of inguinal hernia at thepresent time Extremities: Extremities otherwise unremarkable Genitial: Not examined Rectal Examination: Good sphincter tone, normal perianal sensation. Smooth rectal mucosa without hemorrhoids or fissures. Smooth soft small prostate without evidence of tenderness, bogginess or nodules, perhaps slight induration however over the surface of the prostate. Seminal vesicles. Not palpable. Perineum is well-healed and otherwise normal to examination Neurologic System: There are no focal abnormal clinical neurological signs and central, peripheral nervous systems Impression: I reviewed his records in detail today. He has been followed for many years following both radiation therapy with brachytherapy and externalbeam boost for prostate cancer and is currently very well controlled with Casodex alone having had aprevious rise in the PSA in 2011 which did require total hormone blockade for a period of time. He continues to exhibit outstanding biochemical control of disease. I am very satisfied with his ongoing examination and his progress. He will continue to take vitamin D as before in addition. I did have a discussion with him about the need to maintain close surveillance and what measures maybe required should there be evidence of a rising PSA despite current treatment in the future in which case we may wish to consult with our medical oncologist. I did have a discussion about some of the potential therapeutic options which could be considered under those circumstances. I did discuss the entire situation with the patient in detail today. I answered all his questions Plan: 1 year for PSA and examination Time: 25 minutes. Greater than 50% spent in discussion consultation included careful review of records previous the part of studies, pertinent radiologic studies, discussion of alternative potential therapeutic strategies that may be considered in the future and decision-making This dictation was performed with voice recognition software and may contain errors, omissions and inadvertent word substitution. documented in this encounter Nursing Notes Kirsten Sandoval CMA - 09/07/2018 9:45 AM CDT Chief Complaint Patient presents with ??? RECHECK Pt here for one year for PSA, Physical Exam, Testosterone. Kirsten Sandoval documented in this encounter Plan of Treatment Upcoming Encounters Date Type Specialty Care Team Description 06/18/2022 Ancillary Procedure Cardiology Abdi Bailey MD [address] [place] [address] (Wo rk) documented as of this encounter Procedures Procedure Name Priority Date/Time Associated Comments Diagnosis PSA DIAG UROLOGIC Routine 09/07/2018 9:24 AM Malignant neoplas m Results for this PHYS CDT of prostate (H) procedure ar e in the results section. TESTOSTERONE FREE AND Routine 09/07/2018 9:24 AM Malignant vimal plasm Results for this TOTAL CDT of prostate (H) procedure ar e in the results section. documented in this encounter Results PSA Diag Urologic Phys (09/07/2018 9:24 AM CDT) P athologist Signature PSA Diag <0.04 0.00 - 09/07/2018 [facility] U[facility] Phys 4.00 ng/mL 9:49 AM CDT [facility] Comment: Test performed by chemiluminesc ent immunoassay using [employer] Specimen Anatomical Collection Method Collection Time Receive d Time (Source) Location / / Volume Laterality Blood specimen 09/07/2018 9:24 AM 019 9:25 (specimen) CDT AM CDT Janeth Good MD LAB - BLOOD ORDERABLES Performing Organization Address City/State/ZIP Code Phon e Number [facility] [address] [place] [phone] CLINIC [address] (ABNORMAL) Testosterone Free and Total [[id number]] (09/07/2018 9:24 AM CDT) [facility] Method Time Signature Testosterone <2 (L) 240 - 950 09/13/2018 [facility] ng/dL 3:35 PM CDT [facility] Comment: This test was developed and its performa nce characteristics determined by the [facility], ??Special Chemistry Laboratory. It has not been cleared or approved by the FDA. The laboratory is regulated under CLIA as qualified to perform high-comple xity testing. This test is used for clinical purposes. It should not be rega rded as investigational or for research. Sex Hormone Binding 25 11 - 80 nmol/L 09/07/2018 8:13 PM [facility] Globulin CDT [facility] Free Testosterone <1.00 (L) 4.7 - 24.4 09/13/2018 3:35 PM [facility] Calculated ng/dL CDT [facility] Specimen Anatomical Collection Method Collection Time Receive d Time (Source) Location / / Volume Laterality Blood specimen 09/07/2018 9:24 AM 019 9:25 (specimen) CDT AM CDT Janeth Good MD LAB - BLOOD ORDERABLES Performing Organization Address City/State/ZIP Code Phon e Number [facility] [address] [place] [place] [id number] [place] [address] documented in this encounter Visit Diagnoses Diagnosis Malignant neoplasm of prostate (H) Malignant neoplasm of prostate documented in this encounter Care Teams Records Management Assistant Relationship Specialty Start Date End Date Christian Steiner MD PCP - General Internal Medicine 08/30/12 Christian Steiner MD Assigned PCP 08/11/12 02/22/21 documented as of this encounter
--- OUTSIDE RECORDS SUMMARY | 2022-04-27 07:36 | XMS_ITS | Encounter Summary ---
:1935 Author Organization [place] Address [address] [place] [address] Care Team Providers Name Role Phone Christian Steiner MD Primary Care Provider Unavailable Christian Steiner MD Unavailable Unavailable Reason for Visit Reason Onset Date Comments Refill Request 11/29/2018 blood glucose monito ring (ACCU-CHEK FRANCISCO PLUS) test strip Encounter Details Date Type Department Care Team Description 11/29/2018 Refill [facility] Christian Steiner, Refill Request (blood [facility] glucose monitoring [address] [facility] OUT (ACCU-CHEK FRANCISCO PLUS) [address] test strip) [place] [address] Social History Tobacco Use Types Packs/Day Years Used Date Smoking Tobacco: Former Cigarettes Quit : 02/29/1980 Smokeless Tobacco: Never Alcohol Use Standard Drinks/Week Comments Yes 0 (1 standard drink = 0.6 oz pure alcoho l) occasionally Sex Assigned at Date Recorded Not on file documented as of this encounter Miscellaneous Notes Telephone Encounter - Helena Ramos RN - 12/05/2018 9:48 AM CDT Medication is being filled for 1 time refill only due to: Patient needs to be seen because due for diabetic check. Routing refill request to provider for review/approval because: Pt is over 65. Rx must be printed, signed, and faxed. Telephone Encounter - Mariya Mtz - 11/29/2018 1:49 PM CDT Requested Prescriptions Pending Prescriptions Disp Refills ??? blood glucose (ACCU-CHEK FRANCISCO PLUS) test strip Last Written Prescription Date: 02/16/2018 Last Fill Quantity: 100 strip, # refills: 3 Last office visit: 02/16/2018 with prescribing provider: Obdulia Future Office Visit: 100 strip 3 Sig: USE TO TEST EVERY DAY DIRECTED Diabetic Supplies Protocol Failed - 11/29/2018 1:18 PM Failed - Recent (6 mo) or future (30 days) visit within the authorizing provider's specialty Patient had office visit in the last 6 months or has a visit in the next 30 days with authorizing provider. See Patient Info tab in inbasket, or Choose Columns in Meds & Orders section of the refill encounter. Passed - Medication is active on med list Passed - Patient is 18 years of age or older documented in this encounter Plan of Treatment Upcoming Encounters Date Type Specialty Care Team Description 06/18/2022 Ancillary Procedure Cardiology Abdi Bailey MD [address] [place] [id number] (Wo rk) documented as of this encounter Visit Diagnoses Diagnosis Type 2 diabetes mellitus without complic ation, without long-term current use of insulin (H) documented in this encounter Care Teams Tax Examining Technician Relationship Specialty Start Date End Date Christian Steiner MD PCP - General Internal Medicine 08/30/12 Christian Steiner MD Assigned PCP 08/11/12 02/22/21 documented as of this encounter
--- OUTSIDE RECORDS SUMMARY | 2022-04-27 07:36 | XMS_ITS | Encounter Summary ---
:1935 Author Organization [place] Address [facility] [place] [address] Care Team Providers Name Role Phone Christian Steiner MD Primary Care Provider Unavailable Christian Steiner MD Unavailable Unavailable Encounter Details Date Type Department Care Team Description 08/31/2018 Orders Only [facility] Humberto Good Malignant neoplasm of Urology Clinic [place] Jimenez MD prostate (H) (Primary [address]) [address] [place] [address] [place] [id number] Social History Tobacco Use Types Packs/Day Years [...] 06/18/2022 Ancillary Procedure Cardiology Abdi Bailey MD [address] [place] [id number] (Wo rk) documented as of this encounter Results (ABNORMAL) Testosterone Free and Total [[id number]] (09/07/2018 9:24 AM CDT) [facility] Time Signature Testosterone <2 (L) 240 - 950 09/13/2018 [facility] ng/dL 3:35 PM CDT [facility] Comment: This test was developed and its performa nce characteristics determined by the [facility], ??Special Chemistry Laboratory. It has not been cleared or approved by the FDA. The laboratory is regulated under CLIA as qualified to perform high-comple xity testing. This test is used for clinical purposes. It should not be rega rded as investigational or for research. Sex Hormone Binding 25 11 - 80 nmol/L 09/07/2018 8:13 PM [facility] Globulin [facility] Free Testosterone <1.00 (L) 4.7 - 24.4 09/13/2018 3:35 PM [facility] Calculated ng/dL [facility] Specimen Anatomical Collection Method Collection Time Receive d Time (Source) Location / / Volume Laterality Blood specimen 09/07/2018 9:24 AM 019 9:25 (specimen) CDT AM CDT Humberto Good MD LAB - BLOOD ORDERABLES Performing Organization Address City/State/ZIP Code Phon e Number [facility] [address] [place] [address] [facility] PSA Diag Urologic Phys (09/07/2018 9:24 AM CDT) P athologist Signature PSA Diag <0.04 0.00 - 09/07/2018 [facility] 4.00 ng/mL 9:49 AM CDT [facility] Comment: Test performed by chemiluminesc ent immunoassay using [employer] Specimen Anatomical Collection Method Collection Time Receive d Time (Source) Location / / Volume Laterality Blood specimen 09/07/2018 9:24 AM 019 9:25 (specimen) CDT AM CDT Humberto Good MD LAB - BLOOD ORDERABLES Performing Organization Address City/State/ZIP Code Phon e Number [facility] [address] [place] [phone] [address] documented in this encounter Visit Diagnoses Diagnosis Malignant neoplasm of prostate (H) - Yadira carballo Malignant neoplasm of prostate documented in this encounter Care Teams Eligibility And Occupancy Interviewer Relationship Specialty Start Date End Date Christian Steiner MD PCP - General Internal Medicine 08/30/12 Christian Steiner MD Assigned PCP 08/11/12 02/22/21 documented as of this encounter
--- OUTSIDE RECORDS SUMMARY | 2022-04-27 07:36 | XMS_ITS | Encounter Summary ---
:1935 Author Organization [place] Address [facility] [place] [address] Care Team Providers Name Role Phone Christian Steiner MD Primary Care Provider Unavailable Christian Steiner MD Unavailable Unavailable Encounter Details Date Type Department Care Team Description 09/07/2018 Travel Social History Tobacco Use Types Packs/Day [...] Bailey MD [address] [place] [phone] (Wo rk) documented as of this encounter Visit Diagnoses Not on filedocumented in this encounter Care Teams Corporate Specialist Relationship Specialty Start Date End Date Christian Steiner MD PCP - General Internal Medicine 08/30/12 Christian Steiner MD Assigned PCP 08/11/12 02/22/21 documented as of this encounter
--- OUTSIDE RECORDS SUMMARY | 2022-04-27 07:36 | XMS_ITS | Encounter Summary ---
:1935 Author Organization [place] Address [facility] [place] [address] Care Team Providers Name Role Phone Christian Steiner MD Primary Care Provider Unavailable Christian Steiner MD Unavailable Unavailable Encounter Details Date Type Department Care Team Description 09/22/2019 Travel Social History Tobacco Use Types Packs/Day [...] Ancillary Procedure Cardiology Abdi Bailey MD [address] [facility] [address] [place] [address] (Wo rk) documented as of this encounter Visit Diagnoses Not on filedocumented in this encounter Care Teams Electrolysis Investigator Relationship Specialty Start Date End Date Christian Steiner MD PCP - General Internal Medicine 08/30/12 Christian Steiner MD Assigned PCP 08/11/12 02/22/21 documented as of this encounter
--- OUTSIDE RECORDS SUMMARY | 2022-04-27 07:36 | XMS_ITS | Encounter Summary ---
:1935 Author Organization [place] Address [address] [place] [address] Care Team Providers Name Role Phone Christian Steiner MD Primary Care Provider Unavailable Christian Steiner MD Unavailable Unavailable Christian Steiner MD Unavailable Unavailable Humberto Good MD Unavailable Ke Hernandes MD Unavailable Ina Sheriff MD Primary Care Provider [phone] Herson Licea MD Unavailable Ke Hernandes MD Unavailable Reason for Visit Reason Comments Medication Refill LISINOPRIL 20MG TABLETS Encounter Details Date Type Department Care Team Description 08/02/2018 Refill [facility] Christian Steiner, Medication Refill [facility] Reagan aguilar MD (LISINOPRIL 20MG [address] [facility] [address]TS) [address] [place] [address] Social History Tobacco Use Types Packs/Day Years Used Date Smoking Tobacco: Former Cigarettes Quit : 02/29/1980 Smokeless Tobacco: Never Alcohol Use Standard Drinks/Week Comments Yes 0 (1 standard drink = 0.6 oz pure alcoho l) occasionally Sex Assigned at Date Recorded Not on file documented as of this encounter Miscellaneous Notes Telephone Encounter - Ethel Olson RN - 08/03/2018 2:11 PM AUTOMOTIVE DIAGNOSTIC TECHNICIAN Prescription approved per [facility] Refill Protocol for 12 months of refills since last appointment, whichwas 02/16/18 MOTIVE DIAGNOSTIC TECHNICIAN Telephone Encounter - Carmen Monet CMA - 08/02/2018 11:53 AM AUTOMOTIVE DIAGNOSTIC TECHNICIAN LISINOPRIL 20MG TABLETS Last Written Prescription Date: 08/03/17 Last Fill Quantity: 90, # refills: 3 Last office visit: 02/16/2018 with prescribing provider: 02/16/18 Future Office Visit: Requested Prescriptions Pending Prescriptions Disp Refills ??? lisinopril (PRINIVIL/ZESTRIL) 20 MG tablet [Pharmacy Med Name: LISINOPRIL 20MG TABLETS] 90 tablet 0 Sig: TAKE 1 TABLET BY MOUTH DAILY SAMSON Inhibitors (Including Combos) Protocol Passed - 08/02/2018 11:31 AM Passed - Blood pressure under 140/90 in [...] Labs Lab Test 02/16/18 0909 POTASSIUM 4.4 MOTIVE DIAGNOSTIC TECHNICIAN documented in this encounter Plan of Treatment Upcoming Encounters Date Type Specialty Care Team Description 06/18/2022 Ancillary Procedure Cardiology Abdi Bailey MD [address] [place] [id number] (Wo rk) documented as of this encounter Visit Diagnoses Diagnosis Essential hypertension with goal blood p ressure less than 140/90 documented in this encounter Care Teams Media Producer Relationship Specialty Start Date End Date Christian Steiner MD PCP - General Internal Medicine 08/30/12 Christian Steiner MD PCP - Assigned PCP 08/11/1208/16/18 Ina Sheriff, PCP - General Family Medicine 01/30/[address] [address] Christian Steiner MD Assigned PCP 08/11/12 02/22/21 Humberto Good, Assigned Surgical 04/05/20 02/01/21 MD Provider [address] [place], [place] [address] Ke [place], Assigned Heart and 04/28/20 10/11/21 MD Vascular Provider [address] [place] [address] Herson Licea, Assigned Surgical 02/02/21 MD Provider [address] [place], [place] [id number] Ke [place]es, Assigned Heart and 12/13/21 MD Vascular Provider [address] [place] [id number] documented as of this encounter
--- OUTSIDE RECORDS SUMMARY | 2022-04-27 07:36 | XMS_ITS | Encounter Summary ---
:1935 Author Organization [place] Address [facility] [place] [address] Care Team Providers Name Role Phone Christian Steiner MD Primary Care Provider Unavailable Christian Steiner MD Unavailable Unavailable Reason for Visit Reason Comments Medication Refill Encounter Details Date Type Department Care Team Description 08/29/2019 Refill [facility] Humberto Good, Medication Refill Clinic [place] BAR[place] [address] [place] [address] [place] [address] [phone] (Wo rk) Social History Tobacco Use Types [...] [address] [place] [address] (Wo rk) documented as of this encounter Visit Diagnoses Diagnosis Malignant neoplasm of prostate (H) Malignant neoplasm of prostate documented in this encounter Care Teams Information Operator Relationship Specialty Start Date End Date Christian Steiner MD PCP - General Internal Medicine 08/30/12 Christian Steiner MD Assigned PCP 08/11/12 02/22/21 documented as of this encounter
--- OUTSIDE RECORDS SUMMARY | 2022-04-27 07:36 | XMS_ITS | Encounter Summary ---
:1935 Author Organization [place] Address Formerly [facility], [id number] [facility] [place] [address] Care Team Providers Name Role Phone Christian Steiner MD Primary Care Provider Unavailable Christian Steiner MD Unavailable Unavailable Reason for Visit CV Testing (Routine) - Closed Specialty Diagnoses / Procedures Referred By Contact Refer red To Contact Diagnoses Cardiac pacemaker in situ Ke Hernandes MD Procedures Cardiac Device Check - Remote Cardiac Device Check - In Clinic [address] [place] [place] [address] Referral ID Status Reason Start Date Expiration Date Visits Requ ested Visits Authorized [id number] Closed 08/09/2019 08/08/2020 1 1 Encounter Details Date Type Department Care Team Description 11/14/2019 Ancillary Procedure [facility] Ke Hernandes ardiac pacemaker in [facility] MD Dylan situ [facility] Care [address] [facility] [address] [facility] [address] [place] [address] [place] [phone] (Work) [phone] Social History Tobacco Use Types Packs/Day Years [...] 06/18/2022 Ancillary Procedure Cardiology Abdi Bailey MD [address] [place] [address] (Wo rk) documented as of this encounter Procedures Procedure Name Priority Date/Time Associated Comments Diagnosis INTERROGATION DEVICE Routine 11/14/2019 3:47 PM Cardiac pacema ker Results for this EVAL REMOTE PACER UP CDT in situ procedu re are in TO 90 DAYS the results section. documented in this encounter Results INTERROGATION DEVICE EVAL REMOTE PACER UP TO 90 DAYS (11/14/2019 3:47 PM CDT) Component Value Ref Test Analysis Performed Pathologis t Range Method Time At Signature Date Time [id number] MEDTRONIC Interrogation Session Implantable Medtronic MEDTRONIC Pulse Generator Director Of Elementary Education Implantable [id number] Advisa MEDTRONIC Pulse Generator MRI Model Implantable [id number] MEDTRONIC Pulse Generator Serial Number Type Remote MEDTRONIC Interrogation Session Clinic Name [facility] MEDTRONIC Implantable Pacemaker MEDTRONIC Pulse Generator Type Implantable [id number] MEDTRONIC Pulse Generator Implant Date Implantable Lead Medtronic MEDTRONIC Director Of Elementary Education Implantable Lead 5076 CapSureFix MEDTRON IC Model Novus MRI SureScan Implantable Lead [id number] MEDTRONIC Serial Number Implantable Lead [id number] MEDTRONIC Implant Date Implantable Lead Bipolar Lead MEDTRONIC Polarity Type Implantable Lead UNKNOWN MEDTRONIC Location Detail 1 Implantable Lead Right Atrium MEDTRONIC Location Implantable Lead Medtronic MEDTRONIC Director Of Elementary Education Implantable Lead 5076 CapSureFix MEDTRON IC Model Novus MRI SureScan Implantable Lead [id number] MEDTRONIC Serial Number Implantable Lead [id number] MEDTRONIC [...] MEDTRONIC Pacing Threshold Pulse Width Battery Date DrivableTRONIC Time of Measurements Battery Status OK MEDTRONIC Battery CAREER TECHNICAL EDUCATION TEACHER 2.83 MEDTRONIC Trigger Battery 74 mo MEDTRONIC Remaining Longevity Battery Voltage 3.01 V MEDTRONIC Irving Statistic [id number] MEDTRONIC Date Time Start Irving Statistic [id number] MEDTRONIC Date Time End Irving Statistic 18.23 % MEDTRONIC RA Percent Paced Irving Statistic 99.67 % MEDTRONIC RV Percent Paced Irving Statistic 18.37 % MEDTRONIC AP GRIZZLYMAN Percent Irving Statistic 81.52 % MEDTRONIC GRIZZLYMAN Percent Irving Statistic 0 % MEDTRONIC AP VS Percent Irving Statistic 0.11 % MEDTRONIC VS Percent Atrial Tachy [id number] MEDTRONIC Statistic Date Time Start Atrial Tachy [id number] MEDTRONIC Statistic Date Time End Atrial Tachy 0 % MEDTRONIC Statistic AT/AF [place] Percent Episode 0 MEDTRONIC Statistic Recent Count Episode AT/AF MEDTRONIC Statistic Type Category Episode 0 MEDTRONIC Statistic Recent Count Episode SVT MEDTRONIC Statistic Type Category Episode 0 MEDTRONIC Statistic Recent Count Episode VT MEDTRONIC Statistic Type Category Episode 0 MEDTRONIC Statistic Recent Count Episode VT MEDTRONIC Statistic Type Category Episode [id number] MEDTRONIC Statistic Recent Date Time Start Episode [id number] MEDTRONIC Statistic Recent Date Time End Episode [id number] MEDTRONIC Statistic Recent Date Time Start Episode [id number] [employer]TRONIC Statistic Recent Date Time End Episode [id number] MEDTRONIC Statistic Recent Date Time Start Episode [id number] MEDTRONIC Statistic Recent Date Time End Episode [id number] MEDTRONIC Statistic Recent Date Time Start Episode [id number] MEDTRONIC Statistic Recent Date Time End Episode 1 MEDTRONIC Statistic Total Count Episode AT/AF MEDTRONIC Statistic Type Category Episode 0 MEDTRONIC Statistic Total Count Episode SVT MEDTRONIC Statistic Type Category Episode 1 MEDTRONIC Statistic Total Count Episode VT MEDTRONIC Statistic Type Category Episode 0 MEDTRONIC Statistic Total Count Episode VT MEDTRONIC Statistic Type Category Episode [id number] MEDTRONIC Statistic Total Date Time Start Episode [id number] MEDTRONIC Statistic Total Date Time End Episode [id number] MEDTRONIC Statistic Total Date Time Start Episode [id number] MEDTRONIC Statistic Total Date Time End Episode [id number] MEDTRONIC Statistic Total Date Time Start Episode [id number] MEDTRONIC Statistic Total Date Time End Episode [id number] MEDTRONIC Statistic Total Date Time Start Episode [id number] MEDTRONIC Statistic Total Date Time End Anatomical Region Laterality Modality Other Specimen (Source) Anatomical Collection Method Collection Time Re ceived Time Location / / Volume Laterality 11/14/2019 1:04 PM CDT Narrative 11/23/2019 11:31 AM CDT Medtronic Advisa MRI (D) Remote PPM Device Check AP: 18% GRIZZLYMAN: 100% Mode: DDD Presenting Rhythm: /GRIZZLYMAN Heart Rate: adequate heart rates per his [...] situ documented in this encounter Care Teams Dish Person Relationship Specialty Start Date End Date Christian Steiner MD PCP - General Internal Medicine 08/30/12 Christian Steiner MD Assigned PCP 08/11/12 02/22/21 documented as of this encounter
--- OUTSIDE RECORDS SUMMARY | 2022-04-27 07:36 | XMS_ITS | Encounter Summary ---
:1935 Author Organization [place] Address [facility] [place] [address] Care Team Providers Name Role Phone Christian Steiner MD Primary Care Provider Unavailable Christian Steiner MD Unavailable Unavailable Encounter Details Date Type Department Care Team Description 10/19/2018 Travel Social History Tobacco Use Types Packs/Day [...] Bailey MD [address] [place] [id number] (Wo rk) documented as of this encounter Visit Diagnoses Not on filedocumented in this encounter Care Teams Production Planner Relationship Specialty Start Date End Date Christian Steiner MD PCP - General Internal Medicine 08/30/12 Christian Steiner MD Assigned PCP 08/11/12 02/22/21 documented as of this encounter
--- OUTSIDE RECORDS SUMMARY | 2022-04-27 07:36 | XMS_ITS | Encounter Summary ---
:1935 Author Organization [place] Address [facility] [place] [address] Care Team Providers Name Role Phone Christian Steiner MD Primary Care Provider Unavailable Christian Steiner MD Unavailable Unavailable Reason for Visit CV Testing (Routine) - Closed Specialty Diagnoses / Procedures Referred By Contact Refer red To Contact Diagnoses Cardiac pacemaker in situ Ke Hernandes MD Procedures Cardiac Device Check - Remote [address] [address] [place] [address] Referral ID Status Reason Start Date Expiration Date Visits Requ ested Visits Authorized [id number] Closed 01/25/2019 01/25/2020 1 1 Encounter Details Date Type Department Care Team Description 05/03/2019 Ancillary Procedure [facility] Ke Hernandes ardiac pacemaker in [facility] MD Dylan situ Heart Care [address] [facility] [address] [facility] [address] [place] [address] [place] [phone] (Work) [phone] Social History Tobacco Use Types Packs/Day Years [...] [address] [place] [address] (Wo rk) documented as of this encounter Procedures Procedure Name Priority Date/Time Associated Comments Diagnosis INTERROGATION DEVICE Routine 05/03/2019 11:38 Cardiac pacemake r Results for this EVAL REMOTE PACER UP AM OPTICAL LAB TECHNICIAN in situ procedu re are in TO 90 DAYS the results section. documented in this encounter Results INTERROGATION DEVICE EVAL REMOTE PACER UP TO 90 DAYS (05/03/2019 11:38 AM OPTICAL LAB TECHNICIAN) Component Value Ref Test Analysis Performed Pathologis t Range Method Time At Signature Date Time [id number] MEDTRONIC Interrogation Session Implantable Medtronic MEDTRONIC Pulse Generator Advertising Internship Implantable [id number] Advisa MEDTRONIC Pulse Generator MRI Model Implantable [id number] MEDTRONIC Pulse Generator Serial Number Type Remote MEDTRONIC Interrogation Session Clinic Name Nirav MEDTRONIC Implantable Pacemaker MEDTRONIC Pulse Generator Type Implantable [id number] MEDTRONIC Pulse Generator Implant Date Implantable Lead Medtronic MEDTRONIC Advertising Internship Implantable Lead 5076 CapSureFix MEDTRON IC Model Novus MRI SureScan Implantable Lead [id number] MEDTRONIC Serial Number Implantable Lead [id number] MEDTRONIC Implant Date Implantable Lead Bipolar Lead MEDTRONIC Polarity Type Implantable Lead UNKNOWN MEDTRONIC Location Detail 1 Implantable Lead Right Atrium MEDTRONIC Location Implantable Lead Medtronic MEDTRONIC Advertising Internship Implantable Lead 5076 CapSureFix MEDTRON IC Model Novus MRI SureScan Implantable Lead [id number] MEDTRONIC Serial Number Implantable Lead [id number] MEDTRONIC [...] MEDTRONIC Pacing Threshold Pulse Width Battery Date [id number] MEDTRONIC Time of Measurements Battery Status OK MEDTRONIC Battery EDITOR NEWSPAPER 2.83 MEDTRONIC Trigger Battery 77 mo MEDTRONIC Remaining Longevity Battery Voltage 3.01 V MEDTRONIC Irving Statistic [phone] MEDTRONIC Date Time Start Irving Statistic [id number] MEDTRONIC Date Time End Irving Statistic 15.04 % MEDTRONIC RA Percent Paced Irving Statistic 99.75 % MEDTRONIC RV Percent Paced Irving Statistic 15.07 % MEDTRONIC AP COLD MILL SUPERVISOR Percent Irving Statistic 84.78 % MEDTRONIC COLD MILL SUPERVISOR Percent [place] Statistic 0 % MEDTRONIC AP VS Percent Irving Statistic 0.15 % MEDTRONIC VS Percent Atrial Tachy [id number] MEDTRONIC Statistic Date Time Start Atrial Tachy [id number] MEDTRONIC Statistic Date Time End Atrial Tachy 0 % MEDTRONIC Statistic AT/AF [place] Percent Episode 0 MEDTRONIC Statistic Recent Count Episode AT/AF MEDTRONIC Statistic Type Category Episode 0 MEDTRONIC Statistic Recent Count Episode SVT MEDTRONIC Statistic Type Category Episode 0 MEDTRONIC Statistic Recent Count Episode VT MEDTRONIC Statistic Type Category Episode 0 MEDTRONIC Statistic Recent Count Episode VT MEDTRONIC Statistic Type Category Episode [id number] MEDTRONIC Statistic Recent Date Time Start Episode [id number] MEDTRONIC Statistic Recent Date Time End Episode [id number] MEDTRONIC Statistic Recent Date Time Start Episode [id number] MEDTRONIC Statistic Recent Date Time End Episode [id number] MEDTRONIC Statistic Recent Date Time Start Episode [id number] MEDTRONIC Statistic Recent Date Time End Episode [id number] MEDTRONIC Statistic Recent Date Time Start Episode [id number] MEDTRONIC Statistic Recent Date Time End Episode 1 MEDTRONIC Statistic Total Count Episode AT/AF MEDTRONIC Statistic Type Category Episode 0 MEDTRONIC Statistic Total Count Episode SVT MEDTRONIC Statistic Type Category Episode 1 MEDTRONIC Statistic Total Count Episode VT MEDTRONIC Statistic Type Category Episode 0 MEDTRONIC Statistic Total Count Episode VT MEDTRONIC Statistic Type Category Episode [id number] MEDTRONIC Statistic Total Date Time Start Episode [id number] MEDTRONIC Statistic Total Date Time End Episode [id number] MEDTRONIC Statistic Total Date Time Start Episode [id number] MEDTRONIC Statistic Total Date Time End Episode [id number] MEDTRONIC Statistic Total Date Time Start Episode [id number] MEDTRONIC Statistic Total Date Time End Episode [id number] MEDTRONIC Statistic Total Date Time Start Episode [id number] MEDTRONIC Statistic Total Date Time End Anatomical Region Laterality Modality Other Specimen (Source) Anatomical Collection Method Collection Time Re ceived Time Location / / Volume Laterality 05/03/2019 5:38 PM OPTICAL LAB TECHNICIAN Narrative 05/23/2019 5:09 PM OPTICAL LAB TECHNICIAN Medtronic Advisa (D) Remote PPM Device Check AP: 15% COLD MILL SUPERVISOR: >99% Mode: DDD Presenting Rhythm: /COLD MILL SUPERVISOR Heart Rate: Adequate rates per histogram Sensing: [...] situ documented in this encounter Care Teams Control Specialist Relationship Specialty Start Date End Date Christian Steiner MD PCP - General Internal Medicine 08/30/12 Christian Steiner MD Assigned PCP 08/11/12 02/22/21 documented as of this encounter
--- OUTSIDE RECORDS SUMMARY | 2022-04-27 07:37 | XMS_ITS | Encounter Summary ---
:1935 Author Organization [place] Address [facility] [place] [address] Care Team Providers Name Role Phone Christian Steiner MD Primary Care Provider Unavailable Christian Steiner MD Unavailable Unavailable Christian Steiner MD Unavailable Unavailable Reason for Visit Reason Onset Date Comments Refill Request 09/27/2017 Encounter Details Date Type Department Care Team Description 09/27/2017 Refill [facility] Urology Humberto Good, Refill Request Clinic Yanique BARRETT [address] [place] [address] [place] [address] [phone] (Wo rk) Social History Tobacco Use Types [...] 06/18/2022 Ancillary Procedure Cardiology Abdi Bailey MD [address] [place] [address] (Wo rk) documented as of this encounter Visit Diagnoses Diagnosis Prostate cancer (H) Malignant neoplasm of prostate documented in this encounter Care Teams Drapery Sewer Hand Relationship Specialty Start Date End Date Christian Steiner MD PCP - General Internal Medicine 08/30/12 Christian Steiner MD PCP - Assigned PCP 08/11/1208/16/18 Christian Steiner MD Assigned PCP 08/11/12 02/22/21 documented as of this encounter
--- OUTSIDE RECORDS SUMMARY | 2022-04-27 07:37 | XMS_ITS | Encounter Summary ---
:1935 Author Organization [place] Address [facility] [place] [address] Care Team Providers Name Role Phone Christian Steiner MD Primary Care Provider Unavailable Christian Steiner MD Unavailable Unavailable Christian Steiner MD Unavailable Unavailable Reason for Visit Reason Comments Medication Refill Encounter Details Date Type Department Care Team Description 05/17/2017 Refill [facility] Christian Steiner MD Medication Refill [facility] [address] [facility] [address] [place], [place] [address] Social History Tobacco Use Types Packs/Day Years Used Date Smoking Tobacco: Former Cigarettes Quit : 02/29/1980 Smokeless Tobacco: Never Alcohol Use Standard Drinks/Week Comments Yes 0 (1 standard drink = 0.6 oz pure alcoho l) occasionally Sex Assigned at Date Recorded Not on file documented as of this encounter Miscellaneous Notes Telephone Encounter - Marry Escamilla RN - 05/19/2017 2:12 PM CST Prescription approved per [facility] Refill Protocol. CE AIDE documented in this encounter Plan of Treatment Upcoming Encounters Date Type Specialty Care Team Description 06/18/2022 Ancillary Procedure Cardiology Abdi Bailey MD [address] [place] [address] (Wo rk) documented as of this encounter Visit Diagnoses Diagnosis Type 2 diabetes mellitus without complic ation, without long-term current use of insulin (H) documented in this encounter Care Teams Bank Messenger Relationship Specialty Start Date End Date Christian Steiner MD PCP - General Internal Medicine 08/30/12 Christian Steiner MD PCP - Assigned PCP 08/11/1208/16/18 Christian Steiner MD Assigned PCP 08/11/12 02/22/21 documented as of this encounter
--- OUTSIDE RECORDS SUMMARY | 2022-04-27 07:37 | XMS_ITS | Encounter Summary ---
:1935 Author Organization [place] Address [address] [place] [address] Care Team Providers Name Role Phone Christian Steiner MD Primary Care Provider Unavailable Christian Steiner MD Unavailable Unavailable Christian Steiner MD Unavailable Unavailable Humberto Good MD Unavailable Ke Hernandes MD Unavailable Ina Sheriff MD Primary Care Provider [phone] Herson Licea MD Unavailable Ke Hernandes MD Unavailable Reason for Visit Reason Comments Medication Refill lisinopril (PRINIVIL/ZESTRIL ) 10 MG tablet Encounter Details Date Type Department Care Team Description 08/03/2017 Refill [facility] Christian Steiner, Medication Refill [facility] Reagan aguilar MD (lisinopril [address] [facility] OUT (PRINIVIL/ZESTRIL) 10 MG [address] tablet) [place] [address] Social History Tobacco Use Types Packs/Day Years Used Date Smoking Tobacco: Former Cigarettes Quit : 02/29/1980 Smokeless Tobacco: Never Alcohol Use Standard Drinks/Week Comments Yes 0 (1 standard drink = 0.6 oz pure alcoho l) occasionally Sex Assigned at Date Recorded Not on file documented as of this encounter Miscellaneous Notes Telephone Encounter - Bita Sigala RN - 08/03/2017 4:41 PM CST Call to patient who states that he is taking 20 mg of lisinopril daily. ER TENDER Telephone Encounter - Christian Steiner MD - 08/03/2017 4:33 PM CST Is he taking 10 or 20 mg of lisinopril now? Please ask the patient. ER TENDER Telephone Encounter - Helena Ramos RN - 08/03/2017 4:02 PM CST Routing refill request to provider for review/approval because: Medication is reported/historical - lisinopril was d/c'd on 04/21/17 with reason: alternate therapy. What is the alternate therapy? ER TENDER Telephone Encounter - Karen hPipps - 08/03/2017 3:32 PM CST Requested Prescriptions Pending Prescriptions Disp Refills ??? lisinopril (PRINIVIL/ZESTRIL) 20 MG tablet [Pharmacy Med Name: LISINOPRIL 20MG TABLETS] Historical Last Written Prescription Date: 10/26/2016 Last Fill Quantity: na, # refills: na Last Office Visit 04/21/2017 with [facility] or [facility] prescribing provider: Future Office Visit: 90 tablet 0 Sig: TAKE 1 TABLET BY MOUTH DAILY SAMSON Inhibitors (Including Combos) Protocol Passed 08/03/2017 9:06 AM Passed - Blood pressure under 140/90 in past 12 months BP Readings from Last 3 Encounters: 04/21/17 124/62 03/09/17 132/66 07/21/16 138/78 Passed - Recent or future visit with authorizing provider's specialty Patient had office visit in the last year or has a visit in the next 30 days with authorizing provider. See Patient Info tab in inbasket, or Choose Columns in Meds & Orders section of the refill encounter. Passed - Patient is age 18 or older Passed - Normal serum creatinine on file in past 12 months Recent Labs Lab Test 04/21/17 1644 CR 1.22 Passed - Normal serum potassium on file in past 12 months Recent Labs Lab Test 04/21/17 1644 POTASSIUM 4.4 ER TENDER documented in this encounter Plan of Treatment Upcoming Encounters Date Type Specialty Care Team Description 06/18/2022 Ancillary Procedure Cardiology Abdi Bailey MD [address] [place] [id number] (Wo rk) documented as of this encounter Visit Diagnoses Diagnosis Essential hypertension with goal blood p ressure less than 140/90 documented in this encounter Care Teams Obstetrics Tech Relationship Specialty Start Date End Date Christian Steiner MD PCP - General Internal Medicine 08/30/12 Christian Steiner MD PCP - Assigned PCP 08/11/1208/16/18 Ina Sheriff, PCP - General Family Medicine 01/30/[address] [address] Christian Steiner MD Assigned PCP 08/11/12 02/22/21 Humberto Good, Assigned Surgical 04/05/20 02/01/21 MD Provider [address] [place] [address] Ke Hernandes, Assigned Heart and 04/28/20 10/11/21 MD Vascular Provider [address] [place] [address] Herson Licea, Assigned Surgical 02/02/21 MD Provider [address] [place], [place] [address] Ke Hernandes, Assigned Heart and 12/13/21 MD Vascular Provider [address] [place], [place] [address] documented as of this encounter
--- OUTSIDE RECORDS SUMMARY | 2022-04-27 07:37 | XMS_ITS | Encounter Summary ---
:1935 Author Organization [place] Address [address] [place] [address] Care Team Providers Name Role Phone Christian Steiner MD Primary Care Provider Unavailable Christian Steiner MD Unavailable Unavailable Christian Steiner MD Unavailable Unavailable Reason for Visit Reason Comments Medication Refill atorvastatin (LIPITOR) 40 MG tablet Encounter Details Date Type Department Care Team Description 05/12/2017 Refill [facility] Christian Steiner, Medication Refill [facility] Reagan aguilar MD (atorvastatin (LIPITOR) [address] [facility] 40 MG tablet) [address] [place] [phone] Social History Tobacco Use Types Packs/Day Years Used Date Smoking Tobacco: Former Cigarettes Quit : 02/29/1980 Smokeless Tobacco: Never Alcohol Use Standard Drinks/Week Comments Yes 0 (1 standard drink = 0.6 oz pure alcoho l) occasionally Sex Assigned at Date Recorded Not on file documented as of this encounter Miscellaneous Notes Telephone Encounter - Nathan Alvarado RN - 05/13/2017 10:41 AM CST Last OV 04/21/2017. Left voice message asking patient to schedule fasting lab appt. Requested Prescriptions Pending Prescriptions Disp Refills ??? atorvastatin (LIPITOR) 40 MG tablet [Pharmacy Med Name: ATORVASTATIN 40MG TABLETS] 90 tablet 0 Sig: TAKE 1 TABLET BY MOUTH DAILY Statins Protocol Failed 05/12/2017 9:53 AM Failed - LDL on file in past 12 months Recent Labs Lab Test 03/17/16 1332 LDL 80 Passed - No abnormal creatine kinase in past 12 months No lab results found. Passed - Recent or future visit with authorizing provider Patient had office visit in the last year or has a visit in the next 30 days with authorizing provider. See chart review. Passed - Patient is age 18 or older ET PROPELLANT PLANT SUPERVISOR documented in this encounter Plan of Treatment Upcoming Encounters Date Type Specialty Care Team Description 06/18/2022 Ancillary Procedure Cardiology Abdi Bailey MD [address] [place] [id number] (Wo rk) documented as of this encounter Results Lipid panel reflex to direct LDL Fasting (05/14/2017 8:07 AM ROCKET PROPELLANT PLANT SUPERVISOR) athologist Signature Cholesterol 151 <200 mg/dL 05/14/2017 [facility] 4:46 PM ROCKET PROPELLANT PLANT SUPERVISOR [facility] Triglycerides 66 <150 mg/dL 05/14/2017 [facility] 5:00 PM [facility] Comment: Fasting specimen HDL Cholesterol 55 >39 mg/dL 05/14/2017 5:00 PM ROCKET PROPELLANT PLANT SUPERVISOR [facility] LDL Cholesterol 83 <100 mg/dL 05/14/2017 5:00 PM ROCKET PROPELLANT PLANT SUPERVISOR [facility] Comment: Desirable: <100 mg/dl Non HDL Cholesterol 96 <130 mg/dL 05/14/2017 5:00 PM ROCKET PROPELLANT PLANT SUPERVISOR [facility] Specimen Anatomical Collection Method Collection Time Receive d Time (Source) Location / / Volume Laterality Blood specimen 05/14/2017 8:07 AM 017 8:12 (specimen) ROCKET PROPELLANT PLANT SUPERVISOR AM ROCKET [employer]OPELLANT PLANT SUPERVISOR Christian Steiner MD LAB - BLOOD ORDERABLES Performing Organization Address City/State/ZIP Code Phon e Number [facility] [address] [place] [address] documented in this encounter Visit Diagnoses Diagnosis Hyperlipidemia LDL goal <100 Other and unspecified hyperlipidemia documented in this encounter Care Teams Business Continuity Consultant Relationship Specialty Start Date End Date Christian Steiner MD PCP - General Internal Medicine 08/30/12 Christian Steiner MD PCP - Assigned PCP 08/11/1208/16/18 Christian Steiner MD Assigned PCP 08/11/12 02/22/21 documented as of this encounter
--- OUTSIDE RECORDS SUMMARY | 2022-04-27 07:37 | XMS_ITS | Encounter Summary ---
:1935 Author Organization [place] Address [address] [place] [address] Care Team Providers Name Role Phone Christian Steiner MD Primary Care Provider Unavailable Christian Steiner MD Unavailable Unavailable Christian Steiner MD Unavailable Unavailable Humberto Good MD Unavailable Ke Hernandes MD Unavailable Ina Sheriff MD Primary Care Provider [phone] Herson Licea MD Unavailable Ke Hernandes MD Unavailable Reason for Visit Reason Comments Medication Refill Encounter Details Date Type Department Care Team Description 06/16/[facility] Christian Steiner MD Medication Refill [facility] [address] [place] [address] [place] [address] [phone] Social History Tobacco Use Types Packs/Day Years Used Date Smoking Tobacco: Former Cigarettes Quit : 02/29/1980 Smokeless Tobacco: Never Alcohol Use Standard Drinks/Week Comments Yes 0 (1 standard drink = 0.6 oz pure alcoho l) occasionally Sex Assigned at Date Recorded Not on file documented as of this encounter Miscellaneous Notes Telephone Encounter - Ethel Olson RN - 06/18/2017 2:27 PM STILL PUMP OPERATOR Prescription approved per [facility] Refill Protocol for 12 months of refills since last appointment, whichwas 04/21/17 L PUMP OPERATOR Telephone Encounter - CarlEsthela zapata - 06/18/2017 1:14 PM CST Patient is calling to check on the status of refill. Patient is out of medications. Needs sent today L PUMP OPERATOR documented in this encounter Plan of Treatment Upcoming Encounters Date Type Specialty Care Team Description 06/18/2022 Ancillary Procedure Cardiology Abdi Bailey MD [address] [place] [address] (Wo rk) documented as of this encounter Visit Diagnoses Diagnosis Hyperlipidemia LDL goal <100 Other and unspecified hyperlipidemia documented in this encounter Care Teams Windows Server Engineer Relationship Specialty Start Date End Date Christian Steiner MD PCP - General Internal Medicine 08/30/12 Christian Steiner MD PCP - Assigned PCP 08/11/1208/16/18 Ina Sheriff, PCP - General Family Medicine 01/30/[address] [address] Christian Steiner MD Assigned PCP 08/11/12 02/22/21 Humberto Good, Assigned Surgical 04/05/20 02/01/21 MD Provider [address] [place], [place] [phone] Ke Hernandes, Assigned Heart and 04/28/20 10/11/21 MD Vascular Provider [address] [place], [place] [phone] Herson Licea, Assigned Surgical 02/02/21 MD Provider [address] [place], [place] [address] Ke Hernandes, Assigned Heart and 12/13/21 MD Vascular Provider [address] [place] [id number] documented as of this encounter
--- OUTSIDE RECORDS SUMMARY | 2022-04-27 07:37 | XMS_ITS | Encounter Summary ---
:1935 Author Organization [place] Address [address] [place] [address] Care Team Providers Name Role Phone Christian Steiner MD Primary Care Provider Unavailable Christian Steiner MD Unavailable Unavailable Christian Steiner MD Unavailable Unavailable Reason for Visit Reason Comments Pacemaker Check PPM Carelink Encounter Details Date Type Department Care Team Description 06/28/2017 Allied Health/Nurse [facility] Pac emaker Check (PPM Visit [facility] [address] [place] [address] [place] [phone] Social History Tobacco Use Types Packs/Day Years Used Date Smoking Tobacco: Former Cigarettes Quit : 02/29/1980 Smokeless Tobacco: Never Alcohol Use Standard Drinks/Week Comments Yes 0 (1 standard drink = 0.6 oz pure alcoho l) occasionally Sex Assigned at Date Recorded Not on file documented as of this encounter Progress Notes Lily Escamilla - 06/28/2017 2:00 PM CST [employer] [address] [place] (D) Remote PPM Device Check AP: 13% PATTERNMAKER APPRENTICE METAL: 100% Mode: DDDR Presenting Rhythm: /PATTERNMAKER APPRENTICE METAL Heart Rate: adequate heart rates per histogram Sensing: stable Pacing Threshold: stable Impedance: stable Battery Status: 7 - 9 years remaining Atrial Arrhythmia: 2 brief mode switch episodes, no EGMs available Ventricular Arrhythmia: 1 vent high rate. EGM shows Vs > As lasting 5 seconds, rates 160 - 200bpm. EF 55 - 60%. Pt does not recall any symptoms or what he was doing at the time of this episode. Reviewed findings with Christoph VILLAGRAN. Care Plan: Annual threshold and OV scheduled in September. Gave results over the phone to pt. Yovani CVT ULUS PROFESSOR documented in this encounter Plan of Treatment Upcoming Encounters Date Type Specialty Care Team Description 06/18/2022 Ancillary Procedure Cardiology Abdi Bailey MD [address] [place] [address] (Wo rk) documented as of this encounter Procedures Procedure Name Priority Date/Time Associated Diagnosis Comme nts ZZC PM DEVICE Routine 06/28/2017 2:20 PM Cardiac pacemaker in INTERROGATE REMOTE, UP CALCULUS PROFESSOR situ TO 90 DAYS, LEAD/LEADLESS HC INTERR DEVICE EVAL Routine 06/28/2017 Cardiac pacemaker i n REMOTE, PM/LDLS PM/ICD, situ UP TO 90 DAYS documented in this encounter Results INTERROGATION DEVICE EVAL REMOTE, PACER/ICD (52693) (06/28/2017) Narrative This result has an attachment that is no t available. Abdi Bailey MD PROCEDURES documented in this encounter Visit Diagnoses Diagnosis Cardiac pacemaker in situ - Primary documented in this encounter Care Teams Bankruptcy Processor Relationship Specialty Start Date End Date Christian Steiner MD PCP - General Internal Medicine 08/30/12 Christian Steiner MD PCP - Assigned PCP 08/11/1208/16/18 Christian Steiner MD Assigned PCP 08/11/12 02/22/21 documented as of this encounter
--- OUTSIDE RECORDS SUMMARY | 2022-04-27 07:37 | XMS_ITS | Encounter Summary ---
:1935 Author Organization [place] Address [facility] [place] [address] Care Team Providers Name Role Phone Christian Steiner MD Primary Care Provider Unavailable Christian Steiner MD Unavailable Unavailable Christian Steiner MD Unavailable Unavailable Reason for Visit Reason Comments Clinic Care Coordination - Follow-up History of Prosta te Cancer Encounter Details Date Type Department Care Team Description 09/06/2017 Office Visit [facility] Humberto Good Malignant neoplasm of Urology Clinic [place] Jimenez MD prostate (H) [address] [place] [address] [place] [address] [phone] Social History Tobacco Use Types Packs/Day Years Used Date Smoking Tobacco: Former Cigarettes Quit : 02/29/1980 Smokeless Tobacco: Never Alcohol Use Standard Drinks/Week Comments Yes 0 (1 standard drink = 0.6 oz pure alcoho l) occasionally Sex Assigned at Date Recorded Not on file documented as of this encounter Last Filed Vital Signs Vital Sign Reading Time Taken Comments Blood Pressure 118/68 09/06/2017 1:09 PM CDT Pulse - - Temperature - - Respiratory Rate - - Oxygen Saturation - - Inhaled Oxygen Concentration - - Weight 94.8 kg (209 lb) 09/06/2017 1:09 PM CDT Height 182.9 cm (6') 09/06/2017 1:09 PM CDT Body Mass Index 28.35 09/06/2017 1:09 PM CDT documented in this encounter Progress Notes Humberto Good MD - 09/06/2017 1:00 PM CDT History: It is a great pleasure to see this very pleasant 82-year-old gentleman in follow-up consultation today. He was first diagnosed in 2001 with high volume high-grade adenocarcinoma the prostate and was treated by brachytherapy with an external beam boost and 3 years of hormonal treatment at that time. In 2012 however the PSA began to rise and he was started on androgen ablation without obvious evidence of metastasis at that time and this treatment included both Eligard 45 and Casodex 50 mg daily. It is now 2 years since his last Eligard injection although we have decided to continue with Casodex 50 mg daily Today the PSA is < 0.04. He feels in good health and has no other complaints at this time. He is voiding well without significant symptoms and no evidence of urinary tract infection, gross hematuria or dysuria Past Medical History: Diagnosis Date ??? Diabetes mellitus (H) Type II dx approx. 2003 ? High cholesterol ??? Hypertension ??? Malignant neoplasm of prostate (H) 2002 Prostate cancer; radioactive seeds ; Dr. Mckee; casodex in 2012 Social History Social History ??? Marital status: Spouse name: Rita Vargas ??? Number of children: 3 ??? 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 Smoking status: Former Smoker Quit date: 02/29/1980 ??? Smokeless tobacco: Never Used ??? Alcohol use Yes Comment: occasionally ??? Drug use: No ??? Sexual activity: Yes Partners: Female Other Topics Concern ??? Not on file Social History Narrative has diabetes also Past [...] History Problem Relation Age of Onset ??? DIABETES Son type 2 DM age 50 Current Outpatient Prescriptions: ??? ACCU-CHEK FRANCISCO PLUS test strip, USE TO TEST EVERY DAY DIRECTED, Disp: 100 strip, Rfl: 0 ??? lisinopril (PRINIVIL/ZESTRIL) 20 MG tablet, TAKE 1 TABLET BY MOUTH DAILY, Disp: 90 tablet, Rfl: 3 ??? atorvastatin (LIPITOR) 40 MG tablet, TAKE 1 TABLET BY MOUTH DAILY, Disp: 90 tablet, Rfl: 2 ??? metFORMIN (GLUCOPHAGE) 1000 MG tablet, TAKE 1 TABLET BY MOUTH TWICE DAILY, Disp: 60 tablet, Rfl:4 ??? glipiZIDE (GLUCOTROL) 5 MG tablet, TAKE 1 TABLET BY MOUTH EVERY DAY, Disp: 90 tablet, Rfl: 1 ??? lisinopril (PRINIVIL/ZESTRIL) 10 MG tablet, TK 1 T PO D, Disp: , Rfl: 1 ??? bicalutamide (CASODEX) 50 MG tablet, Take 1 tablet (50 mg) by mouth daily, Disp: 90 tablet, Rfl:2 ??? cinnamon 500 MG CAPS, Take 1 capsule by mouth daily, Disp: , Rfl: ??? Calcium Carbonate-Vitamin D (CALCIUM 600 + D OR), Take 1 tablet by mouth 2 times daily (with meals) , Disp: , Rfl: ??? Cholecalciferol (VITAMIN D) 1000 UNITS capsule, Take 1 capsule by mouth daily., Disp: , Rfl: ??? vitamin B complex with vitamin C (VITAMIN B COMPLEX) TABS, Take 1 tablet by mouth daily., Disp: , Rfl: ??? aspirin 81 MG tablet, Take 1 tablet by mouth daily., Disp: , Rfl: ??? Multiple Vitamin (DAILY MULTIVITAMIN PO), Take 1 tablet by mouth daily , Disp: , Rfl: ??? Co-Enzyme Q-10 10 MG CAPS, Take 1 capsule by mouth daily Dose of capsule unknown., Disp: , Rfl: 10 point ROS of systems including Constitutional, Eyes, Respiratory, Cardiovascular, Gastroenterology, Genitourinary, Integumentary, Muscularskeletal, Psychiatric were all negative except for pertinentpositives noted in my HPI. Examination: There were no vitals taken for this visit. General Impression: Very pleasant gentleman in no acute distress, well oriented in time place and person Mental Status: Normal. HEENT. There is no clinical evidence of jaundice in the mucous membranes are normal Skin: Skin otherwise normal to examination Respiratory System: Respiratory cycle normal Lymph Nodes: Not examined Back/Flank Tenderness: Not examined Cardiovascular System: Not examined Abdominal Examination: Not examined Extremities: No significant peripheral edema Genitial: Not examined Rectal Examination: Good sphincter tone, normal perianal sensation. Smooth rectal mucosa without hemorrhoids or fissures. Smooth soft and very small prostate without evidence of tenderness, bogginess or nodules. Seminal vesicles. Not palpable. Perineum otherwise normal to examination. Neurologic System: There are no focal abnormal clinical neurological signs and central, or peripheral nervous systems Impression: He continues to exhibit excellent biochemical control of prostate cancer on Casodex 50 mg daily only, 16 years after brachytherapy with an external beam boost for high-grade prostate cancer. His PSA has been unrecordable now for almost 2 years. He is having no major side effects and treatment. I would recommend we continue the current treatment for the time being. He will therefore continue on Casodex 50 mg daily and will see him in 1 year for PSA, serum testosterone and examination. I did discuss the entire situation with the patient in detail. I answered all his questions Plan: 1 year for PSA, serum testosterone and examination Time: 20 minutes with greater than 50% in discussion and consultation This dictation was performed with voice recognition software and may contain errors, omissions and inadvertent word substitution. documented in this encounter Nursing Notes Anabella Phipps LPN - 09/06/2017 1:00 PM CDT Chief Complaint Patient presents with ??? Clinic Care Coordination - Follow-up History of Prostate Cancer Anabella Phipps LPN documented in this encounter Plan of Treatment Upcoming Encounters Date Type Specialty Care Team Description 06/18/2022 Ancillary Procedure Cardiology Abdi Bailey MD [address] [place] [id number] (Wo rk) documented as of this encounter Procedures Procedure Name Priority Date/Time Associated Comments Diagnosis PSA DIAG UROLOGIC Routine 09/06/2017 12:51 Malignant neoplasm Results for this PHYS PM CDT of prostate (H) procedure ar e in the results section. URINE MACROSCOPIC Routine 09/06/2017 12:50 Malignant neoplasm Results for this ONLY PM CDT of prostate (H) procedure ar e in the results section. documented in this encounter Results PSA Diag Urologic Phys (09/06/2017 12:51 PM CDT) P athologist Signature PSA Diag <0.04 0.00 - 09/06/2017 [place] [facility] 4.00 ng/mL 1:09 PM CDT [facility] Comment: Test performed by chemiluminesc ent immunoassay using [employer] Specimen Anatomical Collection Method Collection Time Receive d Time (Source) Location / / Volume Laterality Blood specimen 09/06/2017 12:51 8 (specimen) PM CDT 12:53 PM CDT Humberto Good MD LAB - BLOOD ORDERABLES Performing Organization Address City/State/ZIP Code Phon e Number [place] [facility] [address] [place] [phone] CLINIC [address] (ABNORMAL) UA without Microscopic (09/06/2017 12:50 PM CDT) Patholo gist Method Time Signature Color Urine Yellow 09/06/2017 [place] 12:56 PM UROLOGIC CDT [facility] Appearance Urine Clear 09/06/2017 [place] 12:56 PM UROLOGIC CDT [facility] Glucose Urine 250 (A) NEG^Negat 09/06/2017 [place] jose david mg/dL 12:56 PM UROLOGIC CDT [facility] Bilirubin Urine Negative NEG^Negat 09/06/2017 [place] jose david 12:56 PM [facility]OLOGIC CDT [facility] Ketones Urine Trace (A) NEG^Negat 09/06/2017 [place] jose david mg/dL 12:56 PM UROLOGIC CDT [facility] Specific [place] 1.020 1.003 - 09/06/2017 [place] Urine 1.035 12:56 PM UROLOGIC CDT [facility] Blood Urine Negative NEG^Negat 09/06/2017 [place] jose david 12:56 PM UROLOGIC CD[facility] pH Urine 5.0 5.0 - 7.0 09/06/2017 [place] pH 12:56 PM [facility]OLOGIC CD[facility] Protein Albumin Negative NEG^Negat 09/06/2017 [place] Urine jose david mg/dL 12:56 PM [facility]OLOGIC CD[facility] Urobilinogen 0.2 0.2 - 1.0 09/06/2017 [place] Urine EU/dL 12:56 PM [facility] Nitrite Urine Negative NEG^Negat 09/06/2017 [place] jose david 12:56 PM [facility]OLOGIC CD[facility] Leukocyte Negative NEG^Negat 09/06/2017 [place] Esterase Urine jose david 12:56 PM [facility]OLOGIC CDT [facility] Source Midstream 09/06/2017 [place] Urine 12:56 PM [facility]OLOGIC CD[facility] Specimen (Source) Anatomical Collection Method Collection Time Re ceived Time Location / / Volume Laterality Examination of 09/06/2017 12:50 8 midstream urine PM CDT 12:51 PM CDT specimen (procedure) Humberto Good MD LAB - URINE ORDERABLES Performing Organization Address City/State/ZIP Code Phon e Number [place] [facility] [address] [place] [phone] CLINIC [address] documented in this encounter Visit Diagnoses Diagnosis Malignant neoplasm of prostate (H) Malignant neoplasm of prostate documented in this encounter Care Teams General Assignment Reporter Relationship Specialty Start Date End Date Christian Steiner MD PCP - General Internal Medicine 08/30/12 Christian Steiner MD PCP - Assigned PCP 08/11/1208/16/18 Christian Steiner MD Assigned PCP 08/11/12 02/22/21 documented as of this encounter
--- OUTSIDE RECORDS SUMMARY | 2022-04-27 07:37 | XMS_ITS | Encounter Summary ---
:1935 Author Organization [place] Address [address] [place] [address] Care Team Providers Name Role Phone Christian Steiner MD Primary Care Provider Unavailable Christian Steiner MD Unavailable Unavailable Christian Steiner MD Unavailable Unavailable Reason for Visit Reason Comments Medication Refill ACCU-CHEK FRANCISCO PLUS STRIPS 100'S Encounter Details Date Type Department Care Team Description 08/21/2017 Refill [facility] Christian Steiner, Medication Refill [facility] Reagan aguilar MD (ACCU-CHEK FRANCISCO PLUS [address] [facility] [address]'S) [address] [place] [address] Social History Tobacco Use Types Packs/Day Years Used Date Smoking Tobacco: Former Cigarettes Quit : 02/29/1980 Smokeless Tobacco: Never Alcohol Use Standard Drinks/Week Comments Yes 0 (1 standard drink = 0.6 oz pure alcoho l) occasionally Sex Assigned at Date Recorded Not on file documented as of this encounter Miscellaneous Notes Telephone Encounter - Nathan Alvarado RN - 08/23/2017 5:24 PM CDT Prescription approved per [facility] Refill Protocol. Telephone Encounter - Sofía Gore CMA - 08/23/2017 10:36 AM CDT Requested Prescriptions Pending Prescriptions Disp Refills ??? ACCU-CHEK FRANCISCO PLUS test strip [Pharmacy Med Name: ACCU-CHEK FRANCISCO PLUS STRIPS 100'S] 100 strip0 Last Written Prescription Date: 07/17/16 Last Fill Quantity: 100, # refills: 9 Last office visit: 04/21/2017 with prescribing provider: Future Office Visit: Sig: USE TO TEST EVERY DAY DIRECTED Diabetic Supplies Protocol Passed 08/21/2017 10:28 AM Passed - Patient is 18 years of age or older Passed - Recent (6 mo) or future (30 days) visit within the authorizing provider's specialty Patient had office visit in the last 6 months or has a visit in the next 30 days with authorizing provider. See Patient Info tab in inbasket, or Choose Columns in Meds & Orders section of the refill encounter. documented in this encounter Plan of Treatment Upcoming Encounters Date Type Specialty Care Team Description 06/18/2022 Ancillary Procedure Cardiology Abdi Bailey MD [address] [place] [id number] (Wo rk) documented as of this encounter Visit Diagnoses Diagnosis Type 2 diabetes mellitus (H) Type II or unspecified type diabetes andrea litus without mention of complication, not stated as uncontrolled documented in this encounter Care Teams Horticulture Superintendent Relationship Specialty Start Date End Date Christian Steiner MD PCP - General Internal Medicine 08/30/12 Christian Steiner MD PCP - Assigned PCP 08/11/1208/16/18 Christian Steiner MD Assigned PCP 08/11/12 02/22/21 documented as of this encounter
--- OUTSIDE RECORDS SUMMARY | 2022-04-27 07:37 | XMS_ITS | Encounter Summary ---
:1935 Author Organization [facility] Address [address] [place] [id number] Care Team Providers Name Role Phone Christian Steiner MD Primary Care Provider Unavailable Christian Steiner MD Unavailable Unavailable Christian Steiner MD Unavailable Unavailable Reason for Visit Reason Comments Medication Refill METFORMIN 1000MG TABLETS Encounter Details Date Type Department Care Team Description 04/18/2018 Refill [facility] Christian Steiner, Medication Refill [facility] Reagan aguilar MD (METFORMIN 1000MG [address] [facility] [address]) [address] [place] [id number] Social History Tobacco Use Types Packs/Day Years Used Date Smoking Tobacco: Former Cigarettes Quit : 02/29/1980 Smokeless Tobacco: Never Alcohol Use Standard Drinks/Week Comments Yes 0 (1 standard drink = 0.6 oz pure alcoho l) occasionally Sex Assigned at Date Recorded Not on file documented as of this encounter Miscellaneous Notes Telephone Encounter - Carmen Monet, [facility] - 04/19/2018 7:35 AM CST METFORMIN 1000MG TABLETS Last Written Prescription Date: 02/16/18 Last Fill Quantity: 180, # refills: 3 Last office visit: 02/16/2018 with prescribing provider: 02/16/18 Future Office Visit: Requested Prescriptions Pending Prescriptions Disp Refills ??? metFORMIN (GLUCOPHAGE) 1000 MG tablet [Pharmacy Med Name: METFORMIN 1000MG TABLETS] 60 tablet 0 Sig: TAKE 1 TABLET BY MOUTH TWICE DAILY Biguanide Agents Passed 04/18/2018 4:28 PM Passed - Blood pressure less than 140/90 in past 6 months BP Readings from Last 3 Encounters: 02/16/18 136/84 04/18/18 122/74 09/06/17 118/68 Passed - Patient has documented LDL within the past 12 mos. Recent Labs Lab Test 02/16/18 0909 LDL 96 Passed - Patient has had a Microalbumin in the past 15 mos. Recent Labs Lab Test 02/16/18 0908 05/03/12 MICROALB -- -- 10 MICROL 5 < > -- UMALCR 5.36 < > <30 < > = values in this interval not displayed. Passed - Patient is age 10 or older Passed - Patient has documented A1c within the specified period of time. If HgbA1C is 8 or greater, it needs to be on file within the past 3 months. If less than 8, must beon file within the past 6 months. Recent Labs Lab Test 02/16/18 0909 A1C 7.4* Passed - Patient's CR is NOT>1.4 OR Patient's EGFR is NOT<45 within past 12 mos. Recent Labs Lab Test 02/16/18 0909 GFRESTIMATED 61 GFRESTBLACK 74 Recent Labs Lab Test 02/16/18 0909 CR 1.15 Passed - Patient does NOT have a diagnosis of CHF. Passed - Recent (6 mo) or future (30 days) visit within the authorizing provider's specialty Patient had office visit in the last 6 months or has a visit in the next 30 days with authorizing provider or within the authorizing provider's specialty. See Patient Info tab in inbasket, or Choose Columns in Meds & Orders section of the refill encounter. H PRESSER documented in this encounter Plan of Treatment Upcoming Encounters Date Type Specialty Care Team Description 06/18/2022 Ancillary Procedure Cardiology Abdi Bailey MD [address] [place] [id number] (Wo rk) documented as of this encounter Visit Diagnoses Diagnosis Type 2 diabetes mellitus without complic ation, without long-term current use of insulin (H) documented in this encounter Care Teams Game Artist Relationship Specialty Start Date End Date Christian Steiner MD PCP - General Internal Medicine 08/30/12 Christian Steiner MD PCP - Assigned PCP 08/11/1208/16/18 Christian Steiner MD Assigned PCP 08/11/12 02/22/21 documented as of this encounter
--- OUTSIDE RECORDS SUMMARY | 2022-04-27 07:37 | XMS_ITS | Encounter Summary ---
:1935 Author Organization [place] Address [address] [facility] [place] [address] Care Team Providers Name Role Phone Christian Steiner MD Primary Care Provider Unavailable Christian Steiner MD Unavailable Unavailable Christian Steiner MD Unavailable Unavailable Reason for Referral - Closed Specialty Diagnoses / Procedures Referred By Contact Refer red To Contact Diagnoses Need for prophylactic vaccination against Streptococcus pneumoniae (pneumococcus) Christian Steiner MD Procedures Pneumococcal vaccine 23 valent PPSV23 (Pneumovax) [62308] [address] [place] [address] Referral ID Status Reason Start Date Expiration Date Visits Requ ested Visits Authorized [id number] Closed 02/16/2018 02/16/2019 1 1 Reason for Visit Reason Comments Medicare Visit 82 year old male presents fo r annual wellness exam. Encounter Details Date Type Department Care Team Description 02/16/2018 Office Visit [facility] Christian Steiner g eneral medical examination at a health care facility (Primary Dx); Clinic Smiley Arellano MD Type 2 di abetes mellitus without complication, without long-term current use of insulin (H); [facility] Hyperlipidemia LDL goal <100 ; [address] [facility] Screening for diabetic peripheral neuropathy; [facility] Need for prophylactic vaccin ation against Streptococcus pneumoniae (pneumococcus); [address] Need for prophylactic vaccin [place]ion [place] [id number] Social History Tobacco Use Types Packs/Day Years Used Date Smoking Tobacco: Former Cigarettes Quit : 02/29/1980 Smokeless Tobacco: Never Alcohol Use Standard Drinks/Week Comments Yes 0 (1 standard drink = 0.6 oz pure alcoho l) occasionally Sex Assigned at Date Recorded Not on file documented as of this encounter Last Filed Vital Signs Vital Sign Reading Time Taken Comments Blood Pressure 136/84 02/16/2018 8:36 AM CDT Pulse 69 02/16/2018 8:36 AM CDT Temperature 36.6 ??C (97.9 ??F) 02/16/2018 8:36 AM CDT Respiratory Rate 14 02/16/2018 8:36 AM CDT Oxygen Saturation 98% 02/16/2018 8:36 AM CDT Inhaled Oxygen Concentration - - Weight 93.4 kg (206 lb) 02/16/2018 8:36 AM CDT Height 182.9 cm (6') 02/16/2018 8:36 AM CDT Body Mass Index 27.94 02/16/2018 8:36 AM CDT documented in this encounter Patient Instructions Patient InstructionsVesna Morrow LPN - 02/16/2018 8:43 AM CDT I will let you know your lab results. Consider getting the shingles vaccine (Shingrix) at your pharmacy. Please follow up in 6 months, or earlier if needed. documented in this encounter Progress Notes Vesna Morrow LPN - 02/16/2018 9:15 AM CDT Injectable Influenza Immunization Documentation 1. Is the person to be vaccinated sick today? No 2. Does the person to be vaccinated have an allergy to a component of the vaccine? No Egg Allergy Algorithm Link 3. Has the person to be vaccinated ever had a serious reaction to influenza vaccine in the past? No 4. Has the person to be vaccinated ever had Guillain-Sanz?? syndrome? No Form completed by Vesna Galeas LPN Christian Steiner MD - 02/16/2018 8:30 AM CDT SUBJECTIVE: Humberto Siddiqui is a 82 year old male who presents for Preventive Visit. Are you in the first 12 months of your Medicare Part B coverage? No Healthy Habits: ?? Do you get at least three servings of calcium containing foods daily (dairy, green leafy vegetables, etc.)? yes ?? Amount of exercise or daily activities, outside of work: 5 day(s) per week ?? Problems taking medications regularly No ?? Medication side effects: No ?? Have you had an eye exam in the past two years? yes ?? Do you see a dentist twice per year? yes ?? Do you have sleep apnea, excessive snoring or daytime drowsiness?no ?? Ability to successfully perform activities of daily living: Yes, no assistance needed ?? Home safety: none identified ?? Hearing impairment: No ?? Fall risk: Fallen 2 or more times in the past year?: No Any fall with injury in the past year?: No COGNITIVE SCREEN 1) Repeat 3 items (Leader, Season, Table) 2) Clock draw: NORMAL 3) 3 item recall: Recalls NO objects Results: Slightly ABNORMAL clock, 1-2 items recalled: PROBABLE COGNITIVE IMPAIRMENT, INFORM PROVIDER Mini-CogTM Copyright S Vini. Licensed by the author for use in [facility]; reprintedwith permission ([email or web address]). All rights reserved. Patient is here with his . They both insist that he has no memory issues. Glucoses 130-150 rangein the morning. Reviewed and updated as needed this visit by clinical staff Tobacco Allergies Meds Med Hx Surg Hx Fam Hx Soc Hx Reviewed and updated as needed this visit by Provider If you drink alcohol do you typically have >3 drinks per day or >7 drinks per week? No Today's PHQ-2 Score: PHQ-2 (??1999 Pfizer) 02/16/2018 04/21/2017 Q1: Little interest or pleasure in doing things 0 0 Q2: Feeling down, depressed or hopeless 0 0 PHQ-2 Score 0 0 Do you feel safe in your environment - Yes Do you have a Health Care Directive?: No: Advance care planning was reviewed with patient; patient declined at this time. Current providers sharing in care for this patient include: Patient Care Team: Christian Steiner MD as PCP - General (Internal Medicine) The following health maintenance items are reviewed in Epic and correct as of today: Health Maintenance Topic Date Due ??? ADVANCE DIRECTIVE PLANNING Q5 YRS 1992 ??? PNEUMOCOCCAL (2 of 2 - PPSV23) 01/31/2016 ??? TETANUS IMMUNIZATION (SYSTEM ASSIGNED) 02/19/2016 ??? FOOT EXAM Q1 YEAR 03/17/2017 ??? FALL RISK ASSESSMENT 07/21/2017 ??? A1C Q6 MO 10/19/2017 ??? INFLUENZA VACCINE (1) 02/12/2018 ??? TSH W/ FREE T4 REFLEX Q2 YEAR 03/17/2018 ??? CREATININE Q1 YEAR 04/21/2018 ??? MICROALBUMIN Q1 YEAR 04/21/2018 ??? PHQ-2 Q1 YR 04/21/2018 ??? LIPID MONITORING Q1 YEAR 05/14/2018 ??? EYE EXAM Q1 YEAR 12/27/2018 Patient Active Problem List Diagnosis Date Noted ??? Type 2 diabetes mellitus without complication, without long-term current use of insulin (H) 04/21/2017 Priority: High ??? 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 ? H/O tobacco use, presenting hazards to health 09/05/2013 Priority: High Quit 1980. In 03/25, CT abd shows no AAA ? ? Hypertension goal BP (blood pressure) < 140/90 02/28/2013 Priority: High Add lisinopril 02/24 ??? Malignant neoplasm of prostate (H) Priority: High Prostate cancer; radioactive seeds ; Dr. Mckee;PSA 8.6 in 04/25; casodex in 2012. Stable in 11/26and in 02/27 ; < 0.04 in 08/28; Dr Good and in 02/28 and in 08/29 ??? Type 2 diabetes mellitus without complication (H) 04/21/2011 Priority: High Class: Chronic DX approx 2003 per pt ??? Benign paroxysmal positional vertigo, unspecified laterality 04/21/2017 Priority: Medium ??? History of colonic polyps 03/17/2016 Priority: Medium ? ? Hyperlipidemia LDL goal <100 09/07/2012 Priority: Medium incr to atorva 40 in 01/26 ??? Preventive measure 09/07/2012 Priority: Low Colonoscopy 04/24; a 10 mm polyp;tubular adenoma; negative in March 2016. No follow-up needed based on age. Past Surgical History: Procedure Laterality Date ??? COLONOSCOPY N/A 04/07/2016 Procedure: COLONOSCOPY; Surgeon: Aldo Clarke MD; Location: [facility] ??? EXCISE MASS BACK 03/06/2013 Procedure: EXCISE MASS BACK; Excision Left Back Mass, and Right Back Mass; Surgeon: Abdirashid King MD; Location: [facility] OR ??? GENITOURINARY SURGERY prostate ??? IMPLANT PACEMAKER 06/2016 ??? PROSTATE SURGERY Social History Social History ??? Marital status: Spouse name: Rita Vargas ??? Number of children: 3 ??? 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 Smoking status: Former Smoker Quit date: 02/29/1980 ??? Smokeless tobacco: Never Used ??? Alcohol use Yes Comment: occasionally ??? Drug use: No ??? Sexual activity: Yes Partners: Female Other Topics Concern ??? Not on file Social History Narrative has diabetes also Immunization History Administered Date(s) Administered ??? Influenza (H1N1) 06/03/2009 ??? Influenza (High Dose) 3 valent vaccine 03/22/2015, 03/17/2016, 04/02/2017 ??? Influenza (IIV3) PF 04/09/2005, 02/25/2010 ? ? Pneumo Conj 13-V (2010&after) 01/30/2015 ??? TD (ADULT, 7+) 02/18/2006 ??? Zoster vaccine, live 03/10/2012 BP Readings from Last 3 Encounters: 02/16/18 136/84 09/29/17 122/74 09/06/17 118/68 Wt Readings from Last 3 Encounters: 02/16/18 206 lb (93.4 kg) 09/29/17 212 lb (96.2 kg) 09/06/17 209 lb (94.8 kg) Current Outpatient Prescriptions Medication Sig Dispense Refill ??? ACCU-CHEK FRANCISCO PLUS test strip USE TO TEST EVERY DAY DIRECTED 100 strip 0 ??? aspirin 81 MG tablet Take 1 tablet by mouth daily. ??? atorvastatin (LIPITOR) 40 MG tablet TAKE 1 TABLET BY MOUTH DAILY 90 tablet 2 ??? bicalutamide (CASODEX) 50 MG tablet Take 1 tablet (50 mg) by mouth daily 90 tablet 3 ??? Calcium Carbonate-Vitamin D (CALCIUM 600 + D OR) Take 1 tablet by mouth 2 times daily (with meals) ??? Cholecalciferol (VITAMIN D) 1000 UNITS capsule Take 1 capsule by mouth daily. ??? cinnamon 500 MG CAPS Take 1 capsule by mouth daily ??? Co-Enzyme Q-10 10 MG CAPS Take 1 capsule by mouth daily Dose of capsule unknown. ??? glipiZIDE (GLUCOTROL) 5 MG tablet TAKE 1 TABLET BY MOUTH ONCE DAILY 30 tablet 0 ??? lisinopril (PRINIVIL/ZESTRIL) 20 MG tablet TAKE 1 TABLET BY MOUTH DAILY 90 tablet 3 ??? metFORMIN (GLUCOPHAGE) 1000 MG tablet TAKE 1 TABLET BY MOUTH TWICE DAILY 60 tablet 0 ??? Multiple Vitamin (DAILY MULTIVITAMIN PO) Take 1 tablet by mouth daily ??? vitamin B complex with vitamin C (VITAMIN B COMPLEX) TABS Take 1 tablet by mouth daily. No Known Allergies ROS: CONSTITUTIONAL: NEGATIVE for fever, chills, change in weight INTEGUMENTARY/SKIN: NEGATIVE for worrisome rashes, moles or lesions EYES: NEGATIVE for vision changes or irritation ENT/MOUTH: NEGATIVE for ear, mouth and throat problems RESP: NEGATIVE for significant cough or SOB CV: NEGATIVE for chest pain, palpitations or peripheral edema GI: NEGATIVE for nausea, abdominal pain, heartburn, or change in bowel habits : NEGATIVE for frequency, dysuria, or hematuria MUSCULOSKELETAL: NEGATIVE for significant arthralgias or myalgia NEURO: NEGATIVE for weakness, dizziness or paresthesias ENDOCRINE: NEGATIVE for temperature intolerance, skin/hair changes HEME: NEGATIVE for bleeding problems PSYCHIATRIC: NEGATIVE for changes in mood or affect OBJECTIVE: BP 136/84 (BP Location: Right arm, Patient Position: Sitting, Cuff Size: Adult Regular) Pulse 69 Temp 97.9 ??F (36.6 ??C) (Tympanic) Resp 14 Ht 6' (1.829 m) Wt 206 lb (93.4 kg) SpO2 98% BMI 27.94 kg/m2 Estimated body mass index is 27.94 kg/(m^2) as calculated from the following: Height as of this encounter: 6' (1.829 m). Weight as of this encounter: 206 lb (93.4 kg). EXAM: GENERAL: healthy, alert and no distress EYES: Eyes grossly normal to inspection HENT: ear canals and TM's normal, nose and mouth without ulcers or lesions NECK: no adenopathy, no asymmetry, masses, or scars and thyroid normal to palpation RESP: lungs clear to auscultation - no rales, rhonchi or wheezes CV: regular rate and rhythm, normal S1 S2, no S3 or S4, no murmur, click or rub, no peripheral edemaand peripheral pulses strong ABDOMEN: soft, nontender, without hepatosplenomegaly or masses (male): normal male genitalia without lesions or urethral discharge, no hernia MS: no gross musculoskeletal defects noted, no edema SKIN: no suspicious lesions or rashes NEURO: Normal strength and tone, mentation intact and speech normal PSYCH: mentation appears normal, affect normal/bright LYMPH: no cervical, supraclavicular, axillary, or inguinal adenopathy Diabetic foot exam: normal DP and PT pulses and no trophic changes or ulcerative lesions Diagnostic Test Results: pending ASSESSMENT / PLAN: Humberto was seen today for medicare visit. Diagnoses and all orders for this visit: Routine general medical examination at a health care facility Type 2 diabetes mellitus without complication, without long-term current use of insulin (H) - HEMOGLOBIN A1C - Comprehensive metabolic panel (BMP + Alb, Alk Phos, ALT, AST, Total. Bili, TP) - Vitamin B12 - blood glucose monitoring (ACCU-CHEK FRANCISCO PLUS) test strip; USE TO TEST EVERY DAY DIRECTED - glipiZIDE (GLUCOTROL) 5 MG tablet; Take 1 tablet (5 mg) by mouth daily - metFORMIN (GLUCOPHAGE) 1000 MG tablet; TAKE 1 TABLET BY MOUTH TWICE DAILY - Albumin Random Urine Quantitative with Creat Ratio Hyperlipidemia LDL goal <100 - TSH WITH FREE T4 REFLEX - LDL cholesterol direct Screening for diabetic peripheral neuropathy - FOOT EXAM NO CHARGE [51486.114] Need for prophylactic vaccination against Streptococcus pneumoniae (pneumococcus) - Pneumococcal vaccine 23 valent PPSV23 (Pneumovax) [19368] - ADMIN: Vaccine, Initial (93028) - ADMIN PNEUMOVAX VACCINE (For MEDICARE Patients ONLY) [G0009] Need for prophylactic vaccination and inoculation against influenza - FLU VACCINE, INCREASED ANTIGEN, PRESV FREE, AGE 65+ [20809] - Vaccine Administration, Each Additional [21780] Summary and implications: No acute problems. Check labs and adjust medications as indicated. Patient Instructions I will let you know your lab results. Consider getting the shingles vaccine (Shingrix) at your pharmacy. Please follow up in 6 months, or earlier if needed. End of Life Planning: Patient currently has an advanced directive: Yes. Practitioner is supportive of decision. COUNSELING: Reviewed preventive health counseling, as reflected in patient instructions BP Readings from Last 1 Encounters: 02/16/18 136/84 Estimated body mass index is 27.94 kg/(m^2) as calculated from the following: Height as of this encounter: 6' (1.829 m). Weight as of this encounter: 206 lb (93.4 kg). reports that he quit smoking about 37 years ago. He has never used smokeless tobacco. Appropriate preventive services were discussed with this patient, including applicable screening as appropriate for cardiovascular disease, diabetes, osteopenia/osteoporosis, and glaucoma. As appropriate for age/gender, discussed screening for colorectal cancer, prostate cancer, breast cancer, and cervical cancer. Checklist reviewing preventive services available has been given to the patient. Reviewed patients plan of care and provided an AVS. The Basic Care Plan (routine screening as documented in Health Maintenance) for Humberto meets the Care Plan requirement. This Care Plan has been established and reviewed with the Patient. Counseling Resources: ATP IV Guidelines Pooled Cohorts Equation Calculator Breast Cancer Risk Calculator FRAX Risk Assessment ICSI Preventive Guidelines Dietary Guidelines for Americans, 2009 USDA's MyPlate ASA Prophylaxis Lung CA Screening Christian Steiner MD [facility] Results for orders placed or performed in visit on 02/16/18 HEMOGLOBIN A1C Result Value Ref Range Hemoglobin A1C 7.4 (H) 0 - 5.6 % TSH WITH FREE T4 REFLEX Result Value Ref Range TSH 1.20 0.40 - 4.00 mU/L Comprehensive metabolic panel (BMP + Alb, Alk Phos, ALT, AST, Total. Bili, TP) Result Value Ref Range Sodium 137 133 - 144 mmol/L Potassium 4.4 3.4 - 5.3 mmol/L Chloride 103 94 - 109 mmol/L Carbon Dioxide 24 20 - 32 mmol/L Anion Gap 10 3 - 14 mmol/L Glucose 215 (H) 70 - 99 mg/dL Urea Nitrogen 27 7 - 30 mg/dL Creatinine 1.15 0.66 - 1.25 mg/dL GFR Estimate 61 >60 mL/min/1.7m2 GFR Estimate If Black 74 >60 mL/min/1.7m2 Calcium 9.1 8.5 - 10.1 mg/dL Bilirubin Total 0.5 0.2 - 1.3 mg/dL Albumin 4.1 3.4 - 5.0 g/dL Protein Total 6.9 6.8 - 8.8 g/dL Alkaline Phosphatase 72 40 - 150 U/L ALT 24 0 - 70 U/L AST 20 0 - 45 U/L Vitamin B12 Result Value Ref Range Vitamin B12 950 193 - 986 pg/mL LDL cholesterol direct Result Value Ref Range LDL Cholesterol Direct 96 <100 mg/dL Albumin Random Urine Quantitative with Creat Ratio Result Value Ref Range Creatinine Urine 95 mg/dL Albumin Urine mg/L 5 mg/L Albumin Urine mg/g Cr 5.36 0 - 17 mg/g Cr Letter sent. Your diabetes control is stable; it could be a bit better. The A1C of 7.4 correlates mohinder average blood sugar of approximately 162. Your other lab results are normal or stable,including the liver,kidney,thyroid,B12,and the LDL cholesterol level. Keep taking the same medications. documented in this encounter Nursing Notes Vesna Morrow LPN - 02/16/2018 8:30 AM CDT Screening Questionnaire for Adult Immunization Are you sick today? No Do you have allergies to medications, food, a vaccine component or latex? No Have you ever had a serious reaction after receiving a vaccination? No Do you have a long-term health problem with heart disease, lung disease, asthma, kidney disease, metabolic disease (e.g. diabetes), anemia, or other blood disorder? No Do you have cancer, leukemia, HIV/AIDS, or any other immune system problem? No In the past 3 months, have you taken medications that affect your immune system, such as prednisone,other steroids, or anticancer drugs; drugs for the treatment of rheumatoid arthritis, Crohn???s disease, or psoriasis; or have you had radiation treatments? No Have you had a seizure, or a brain or other nervous system problem? No During the past year, have you received a transfusion of blood or blood products, or been given immune (gamma) globulin or antiviral drug? No For women: Are you or is there a chance you could become during the next month? No Have you received any vaccinations in the past 4 weeks? No Immunization questionnaire answers were all negative. Per orders of Dr. Velasquez, injection of Pneumovax/ Flu were given by Vesna Morrow. Patient instructed to remain in clinic for 15 minutes afterwards, and to report any adverse reaction to me immediately. Screening performed by Vesna Morrow on 02/16/2018 at 9:19 AM. documented in this encounter Plan of Treatment Upcoming Encounters Date Type Specialty Care Team Description 06/18/2022 Ancillary Procedure Cardiology Abdi Bailey MD [address] [place] [id number] (Wo rk) documented as of this encounter Procedures Procedure Name Priority Date/Time Associated Diagnosis Comme nts TSH WITH FREE T4 Routine 02/16/2018 9:09 Hyperlipidemia LDL Re sults for this REFLEX AM CDT goal <100 procedure are i n the results section. LDL CHOLESTEROL Routine 02/16/2018 9:09 Hyperlipidemia LDL Res ults for this DIRECT AM CDT goal <100 procedure are i n the results section. HEMOGLOBIN A1C Routine 02/16/2018 9:09 Type 2 diabetes Results for this AM CDT mellitus without procedure a re in complication, without the re sults long-term current use sectio n. of insulin (H) COMPREHENSIVE Routine 02/16/2018 9:09 Type 2 diabetes Results for this METABOLIC PANEL AM CDT mellitus without procedur e are in complication, without the re sults long-term current use sectio n. of insulin (H) VITAMIN B12 Routine 02/16/2018 9:09 Type 2 diabetes Results f or this AM CDT mellitus without procedure a re in complication, without the re sults long-term current use sectio n. of insulin (H) ALBUMIN RANDOM URINE Routine 02/16/2018 9:08 Type 2 diabetes R esults for this QUANTITATIVE AM CDT mellitus without procedure a re in complication, without the re sults long-term current use sectio n. of insulin (H) documented in this encounter Results LDL cholesterol direct (02/16/2018 9:09 AM CDT) Analysis Performed At Patho logist Time Signature LDL Cholesterol 96 <100 mg/dL 02/16/2018 JADE Direct 3:40 PM CDT [facility] Comment: Desirable: <100 mg/dl Specimen Anatomical Collection Method Collection Time Receive d Time (Source) Location / / Volume Laterality Blood specimen 02/16/2018 9:09 AM 018 9:14 (specimen) CDT AM CDT Christian Steiner MD LAB - BLOOD ORDERABLES Performing Organization Address City/State/ZIP Code Phon e Number [facility] [address] [place] [address] Vitamin B12 (02/16/2018 9:09 AM CDT) P athologist Signature Vitamin B12 950 193 - 986 02/16/2018 [facility] pg/mL 5:27 PM CDT [facility] Specimen Anatomical Collection Method Collection Time Receive d Time (Source) Location / / Volume Laterality Blood specimen 02/16/2018 9:09 AM 018 9:14 (specimen) CDT AM CDT Christian Steiner MD LAB - BLOOD ORDERABLES Performing Organization Address City/State/ZIP Code Phon e Number [facility] [address] [place] [address] [facility] (ABNORMAL) Comprehensive metabolic panel (BMP + Alb, Alk Phos, ALT, AST, Total. Bili, TP) (02/16/2018 9:09 AM CDT) Patholo gist Method Time Signature Sodium 137 133 - 144 02/16/2018 J[facility] mmol/L 3:40 PM CDT [facility] Potassium 4.4 3.4 - 5.3 02/16/2018 [facility] mmol/L 3:40 PM CDT [facility] Chloride 103 94 - 109 02/16/2018 [facility] mmol/L 3:40 PM CDT [facility] Carbon Dioxide 24 20 - 32 02/16/2018 [facility] mmol/L 3:40 PM CDT [facility] Anion Gap 10 3 - 14 02/16/2018 [facility] mmol/L 3:40 PM CDT [facility] Glucose 215 (H) 70 - 99 02/16/2018 [facility] mg/dL 3:40 PM T [facility] Urea Nitrogen 27 7 - 30 02/16/2018 [place] mg/dL 3:40 PM T [facility] Creatinine 1.15 0.66 - 02/16/2018 [place] 1.25 mg/dL 3:40 PM T [facility] GFR Estimate 61 >60 02/16/2018 [place] mL/min/1.7 3:40 PM T [facility] m2 [facility] Comment: Non GFR Calc GFR Estimate If 74 >60 mL/min/1.7m2 02/16/2018 3:40 P M [facility] Black [facility] Comment: GFR Calc Calcium 9.1 8.5 - 10.1 02/16/2018 3:40 PM [facility] mg/dL [facility] Bilirubin Total 0.5 0.2 - 1.3 mg/dL 02/16/2018 3:40 PM [facility] Albumin 4.1 3.4 - 5.0 g/dL 02/16/2018 3:40 [facility] Protein Total 6.9 6.8 - 8.8 g/dL 02/16/2018 3:40 PM [facility] Alkaline Phosphatase 72 40 - 150 U/L 02/16/2018 3:40 PM [facility] ALT 24 0 - 70 U/L 02/16/2018 3:40 PM [facility] AST 20 0 - 45 U/L 02/16/2018 3:40 PM [facility] Specimen Anatomical Collection Method Collection Time Receive d Time (Source) Location / / Volume Laterality Blood specimen 02/16/2018 9:09 AM 018 9:14 (specimen) CDT AM CDT Christian Steiner MD LAB - BLOOD ORDERABLES Performing Organization Address City/State/ZIP Code Phon e Number [facility] [address] [place] [address] TSH WITH FREE T4 REFLEX (02/16/2018 9:09 AM CDT) athologist Signature TSH 1.20 0.40 - 4.00 02/16/2018 [facility] mU/L 3:40 PM CDT [facility] Specimen Anatomical Collection Method Collection Time Receive d Time (Source) Location / / Volume Laterality Blood specimen 02/16/2018 9:09 AM 018 9:14 (specimen) CDT AM CDT hCristian Steiner MD LAB - BLOOD ORDERABLES Performing Organization Address City/[facility]/ZIP Code Phon e Number [facility] [address] [place] [address] (ABNORMAL) HEMOGLOBIN A1C (02/16/2018 9:09 AM CDT) [facility] gist Method Time Signature Hemoglobin A1C 7.4 (H) 0 - 5.6 % 02/16/2018 [place] 10:05 AM CDT [facility] Comment: Normal <5.7% Prediabetes 5.7-6.4% ??Diab etes 6.5% or higher - adopted from ADA consensus guidelines. Specimen Anatomical Collection Method Collection Time Receive d Time (Source) Location / / Volume Laterality Blood specimen 02/16/2018 9:09 AM 018 9:14 (specimen) CDT AM CDT Christian Steiner MD LAB - BLOOD ORDERABLES Performing Organization Address City/[facility]/ZIP Code Phon e Number [facility] [address] [place] [address] [facility] Albumin Random Urine Quantitative with Creat Ratio (02/16/2018 9:08 AM CDT) athologist Signature Creatinine 95 mg/dL 02/16/2018 [place] Urine 5:39 PM CDT [facility] Albumin Urine 5 mg/L 02/16/2018 [place] mg/L 5:39 PM CDT [facility] [facility] Urine 5.36 0 - 17 02/16/2018 [facility] mg/g Cr mg/g Cr 5:39 PM CDT [facility] Specimen Anatomical Collection Method Collection Time Receive d Time (Source) Location / / Volume Laterality Urine specimen 02/16/2018 9:08 AM 018 9:13 (specimen) CDT AM CDT Christian Steiner MD LAB - URINE ORDERABLES Performing Organization Address City/State/ZIP Code Phon e Number [facility] [address] [place] [address] documented in this encounter Visit Diagnoses Diagnosis Routine general medical examination at a health care facility - Primary Type 2 diabetes mellitus without complic ation, without long-term current use of insulin (H) Hyperlipidemia LDL goal <100 Other and unspecified hyperlipidemia Screening for diabetic peripheral neurop athy Special screening for other neurological conditions Need for prophylactic vaccination agains t Streptococcus pneumoniae (pneumococcus) Need for prophylactic vaccination agains t streptococcus pneumoniae (pneumococcus) Need for prophylactic vaccination and in oculation against influenza documented in this encounter Care Teams Insurance Risk Manager Relationship Specialty Start Date End Date Christian Steiner MD PCP - General Internal Medicine 08/30/12 Christian Steiner MD PCP - Assigned PCP 08/11/1208/16/18 Christian Steiner MD Assigned PCP 08/11/12 02/22/21 documented as of this encounter
--- OUTSIDE RECORDS SUMMARY | 2022-04-27 07:37 | XMS_ITS | Encounter Summary ---
:1935 Author Organization [place] Address [facility] hospital[facility] [place] [address] Care Team Providers Name Role Phone Christian Steiner MD Primary Care Provider Unavailable Christian Steiner MD Unavailable Unavailable Christian Steiner MD Unavailable Unavailable Reason for Visit Reason Comments Medication Refill Encounter Details Date Type Department Care Team Description 05/18/[address] [facility] Christian Steiner MD Medication Refill [facility] [address] [facility] [address] [place] [phone] Social History Tobacco Use Types Packs/Day Years Used Date Smoking Tobacco: Former Cigarettes Quit : 02/29/1980 Smokeless Tobacco: Never Alcohol Use Standard Drinks/Week Comments Yes 0 (1 standard drink = 0.6 oz pure alcoho l) occasionally Sex Assigned at Date Recorded Not on file documented as of this encounter Miscellaneous Notes Telephone Encounter - Marry Escamilla RN - 05/19/2017 3:39 PM CST [place] [facility] [place] Protocol. [facility] Telephone Encounter - Esthela Henry - 05/19/2017 3:04 PM CST Only has one pill left. Please send to pharmacy today [facility] documented in this encounter Plan of Treatment Upcoming Encounters Date Type Specialty Care Team Description 06/18/2022 Ancillary Procedure Cardiology Abdi Bailey MD [address] [facility] [address] [place] [address] (Wo rk) documented as of this encounter Visit Diagnoses Diagnosis Type 2 diabetes mellitus without complic ation, without long-term current use of insulin (H) documented in this encounter Care Teams Safety Inspector Relationship Specialty Start Date End Date Christian Steiner MD PCP - General Internal Medicine 08/30/12 Christian Steiner MD PCP - Assigned PCP 08/11/1208/16/18 Christian Steiner MD Assigned PCP 08/11/12 02/22/21 documented as of this encounter
--- OUTSIDE RECORDS SUMMARY | 2022-04-27 07:37 | XMS_ITS | Encounter Summary ---
:1935 Author Organization [place] Address [address] [place] [address] Care Team Providers Name Role Phone Christian Steiner MD Primary Care Provider Unavailable Christian Steiner MD Unavailable Unavailable Christian Steiner MD Unavailable Unavailable Reason for Visit Reason Comments Pacemaker Check PPM Carelink Encounter Details Date Type Department Care Team Description 04/13/2018 Allied Health/Nurse [facility] Pac emaker Check ([facility] [address] [place] [address] [place] [phone] Social History Tobacco Use Types Packs/Day Years Used Date Smoking Tobacco: Former Cigarettes Quit : 02/29/1980 Smokeless Tobacco: Never Alcohol Use Standard Drinks/Week Comments Yes 0 (1 standard drink = 0.6 oz pure alcoho l) occasionally Sex Assigned at Date Recorded Not on file documented as of this encounter Progress Notes Negin Benson - 04/13/2018 4:30 PM CDT [employer] Advisa (D) Remote PPM Device Check AP: 20 % QUEEN PRODUCER: 100 % Mode: DDD Presenting Rhythm: /QUEEN PRODUCER Heart Rate: Adequate rates per histogram Sensing: Stable Pacing Threshold: Stable Impedance: Stable Battery Status: 6.5-8.5 years Atrial Arrhythmia: 5 brief mode switch episodes, no EGMs Ventricular Arrhythmia: None Care Plan: F/u PPM Carelink q 3 months. Gave patient results over the phone. NANCY [place] documented in this encounter Plan of Treatment Upcoming Encounters Date Type Specialty Care Team Description 06/18/2022 Ancillary Procedure Cardiology Abdi Bailey MD [address] [place] [address] (Wo rk) documented as of this encounter Procedures Procedure Name Priority Date/Time Associated Diagnosis Comme nts ZZC PM DEVICE Routine 04/13/2018 1:20 PM Cardiac pacemaker in INTERROGATE REMOTE, UP CDT situ TO 90 DAYS, LEAD/LEADLESS HC INTERR DEVICE EVAL Routine 04/13/2018 Cardiac pacemaker i n REMOTE, PM/LDLS PM/ICD, situ UP TO 90 DAYS documented in this encounter Results INTERROGATION DEVICE EVAL REMOTE, PACER/ICD (40888) (04/13/2018) Narrative This result has an attachment that is no t available. Abdi Bailey MD PROCEDURES documented in this encounter Visit Diagnoses Diagnosis Cardiac pacemaker in situ - Primary documented in this encounter Care Teams Tool And Die Maker Apprentice Relationship Specialty Start Date End Date Christian Steiner MD PCP - General Internal Medicine 08/30/12 Christian Steiner MD PCP - Assigned PCP 08/11/1208/16/18 Christian Steiner MD Assigned PCP 08/11/12 02/22/21 documented as of this encounter
--- OUTSIDE RECORDS SUMMARY | 2022-04-27 07:37 | XMS_ITS | Encounter Summary ---
:1935 Author Organization [place] Address [facility] [place] [address] Care Team Providers Name Role Phone Chritsian Steiner MD Primary Care Provider Unavailable Christian Steiner MD Unavailable Unavailable Christian Steiner MD Unavailable Unavailable Encounter Details Date Type Department Care Team Description 05/14/2017 Orders Only [facility] Hyp erlipidemia LDL goal [facility] Xerxes <100 Laboratory [address] [facility] [address] [place] [address] Social History Tobacco Use Types [...] [facility] [address] [place], [place] [phone] (Wo rk) documented as of this encounter Procedures Procedure Name Priority Date/Time Associated Diagnosis Comme nts LIPID REFLEX TO Routine 05/14/2017 8:07 AM Hyperlipidemia LDL goal Results for this DIRECT LDL PANEL MELT DOWN FURNACE OPERATOR <100 procedure a re in the results section. documented in this encounter Results Lipid panel reflex to direct LDL Fasting (05/14/2017 8:07 AM MELT DOWN FURNACE OPERATOR) athologist Signature Cholesterol 151 <200 mg/dL 05/14/2017 [facility] 4:46 PM MELT DOWN FURNACE OPERATOR [facility] Triglycerides 66 <150 mg/dL 05/14/2017 [facility] 5:00 PM MELT DOWN FURNACE OPERATOR [facility] Comment: Fasting specimen HDL Cholesterol 55 >39 mg/dL 05/14/2017 5:00 PM MELT DOWN FURNACE OPERATOR [facility] LDL Cholesterol 83 <100 mg/dL 05/14/2017 5:00 PM MELT DOWN FURNACE OPERATOR [facility] Comment: Desirable: <100 mg/dl Non HDL Cholesterol 96 <130 mg/dL 05/14/2017 5:00 PM MELT DOWN FURNACE OPERATOR [facility] Specimen Anatomical Collection Method Collection Time Receive d Time (Source) Location / / Volume Laterality Blood specimen 05/14/2017 8:07 AM 017 8:12 (specimen) MELT DOWN FURNACE OPERATOR AM MELT DOWN FURNACE OPERATOR Christian Steiner MD LAB - BLOOD ORDERABLES Performing Organization Address City/State/ZIP Code Phon e Number [facility] [address] [place] [address] documented in this encounter Visit Diagnoses Diagnosis Hyperlipidemia LDL goal <100 Other and unspecified hyperlipidemia documented in this encounter Care Teams Donor Relations Associate Relationship Specialty Start Date End Date Christian Steiner MD PCP - General Internal Medicine 08/30/12 Christian Steiner MD PCP - Assigned PCP 08/11/1208/16/18 Christian Stiener MD Assigned PCP 08/11/12 02/22/21 documented as of this encounter
--- OUTSIDE RECORDS SUMMARY | 2022-04-27 07:37 | XMS_ITS | Encounter Summary ---
:1935 Author Organization [place] Address [address] [place] [address] Care Team Providers Name Role Phone Christian Steiner MD Primary Care Provider Unavailable Christian Steiner MD Unavailable Unavailable Christian Steiner MD Unavailable Unavailable Reason for Visit Reason Comments Pacemaker Check PPM Carelink Encounter Details Date Type Department Care Team Description 01/05/2018 Allied Health/Nurse [facility] Pac emaker Check (PPM Visit [facility]) [address] [place] [address] [place] [phone] Social History Tobacco Use Types Packs/Day Years Used Date Smoking Tobacco: Former Cigarettes Quit : 02/29/1980 Smokeless Tobacco: Never Alcohol Use Standard Drinks/Week Comments Yes 0 (1 standard drink = 0.6 oz pure alcoho l) occasionally Sex Assigned at Date Recorded Not on file documented as of this encounter Progress Notes Lily Escamilla - 01/05/2018 2:15 PM CDT [employer] Advisa DR [place] (D) Remote PPM Device Check AP: 22% FX ARTIST: 100% Mode: DDD Presenting Rhythm: /FX ARTIST Heart Rate: adequate heart rates per histogram Sensing: stable Pacing Threshold: stable Impedance: stable Battery Status: 6.5 - 9 years remaining Atrial Arrhythmia: 5 brief mode switch episodes, no EGMs available Ventricular Arrhythmia: none Care Plan: F/U Carelink q 3 months. Annual OV due in September 2018. Gave results and next transmission date over the phone to pt. Yovani CRUZ documented in this encounter Plan of Treatment Upcoming Encounters Date Type Specialty Care Team Description 06/18/2022 Ancillary Procedure Cardiology Abdi Bailey MD [address] [place] [id number] (Wo rk) documented as of this encounter Procedures Procedure Name Priority Date/Time Associated Diagnosis Comme nts ZZC PM DEVICE Routine 01/05/2018 11:10 AM Cardiac pacemaker in INTERROGATE REMOTE, UP CDT situ TO 90 DAYS, LEAD/LEADLESS HC INTERR DEVICE EVAL Routine 01/05/2018 Cardiac pacemaker i n REMOTE, PM/LDLS PM/ICD, situ UP TO 90 DAYS documented in this encounter Results INTERROGATION DEVICE EVAL REMOTE, PACER/ICD (08022) (01/05/2018) Narrative This result has an attachment that is no t available. Ke Hernandes MD PROCEDURES documented in this encounter Visit Diagnoses Diagnosis Cardiac pacemaker in situ - Primary documented in this encounter Care Teams Sewing Machine Mechanic Relationship Specialty Start Date End Date Christian Steiner MD PCP - General Internal Medicine 08/30/12 Christian Steiner MD PCP - Assigned PCP 08/11/1208/16/18 Christian Steiner MD Assigned PCP 08/11/12 02/22/21 documented as of this encounter
--- OUTSIDE RECORDS SUMMARY | 2022-04-27 07:37 | XMS_ITS | Encounter Summary ---
:1935 Author Organization [place] Address [facility] [place] [address] Care Team Providers Name Role Phone Christian Steiner MD Primary Care Provider Unavailable Christian Steiner MD Unavailable Unavailable Christian Steiner MD Unavailable Unavailable Reason for Visit Reason Comments Heart Problem Annual follow up Encounter Details Date Type Department Care Team Description 09/29/2017 Office Visit [facility] Ke Reno Cardiac pacemaker in situ (Primary Dx); Heart Clinic MD Dylan AV block; [place] [address] [place] [address] [facility] [address] [place] [address] [place], [place] [phone] (Work) [phone] Social History Tobacco Use Types Packs/Day Years Used Date Smoking Tobacco: Former Cigarettes Quit : 02/29/1980 Smokeless Tobacco: Never Alcohol Use Standard Drinks/Week Comments Yes 0 (1 standard drink = 0.6 oz pure alcoho l) occasionally Sex Assigned at Date Recorded Not on file documented as of this encounter Last Filed Vital Signs Vital Sign Reading Time Taken Comments Blood Pressure 122/74 09/29/2017 9:47 AM CDT Pulse 70 09/29/2017 9:47 AM CDT Temperature - - Respiratory Rate - - Oxygen Saturation - - Inhaled Oxygen Concentration - - Weight 96.2 kg (212 lb) 09/29/2017 9:47 AM CDT Height 182.9 cm (6') 09/29/2017 9:47 AM CDT Body Mass Index 28.75 09/29/2017 9:47 AM CDT documented in this encounter Progress Notes Ke Reno MD - 09/29/2017 10:04 AM CDT Service Date: 09/29/2017 REASON FOR VISIT: Evaluation after pacemaker implantation. HISTORY OF PRESENT ILLNESS: Mr. 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 He underwent pacemaker implantation 07/13/2016 and is here today for routine followup. At the moment, he is doing well, has no complaints during this visit. He denies chest pain, shortness of breath, lightheadedness, near-syncope or syncopal episode. Echocardiogram obtained 07/13/2016 revealed EF of 55-60%. No significant valve disease was noticed. The device was interrogated today. He is ventricular paced 100% of the time and atrially paced 16% of the time. Lead parameters are stable. ASSESSMENT AND PLAN: 1. Device care. Continue device checks every 3 months. 2. Hypertension. Blood pressure is well controlled. Continue lisinopril. 3. Diabetes. No acute issues. Continue metformin. 4. Followup care. Follow up in clinic with me in a year or as needed. KE RENO MD MT: RAMY Name: JANETH SIDDIQUI Account: [id number] : 1935 Service Date: 09/29/2017 Document: [id number] Ke Reno MD - 09/29/2017 9:45 AM CDT [id number] Electrophysiology/ Clinic Note H&P and Plan: Ke Reno MD Physical Exam: Vitals: BP 122/74 Pulse 70 Ht 1.829 m (6') Wt 96.2 kg (212 lb) BMI 28.75 kg/m2 Constitutional: AAO x3. Pt is in NAD. [...] and intact throughout. CURRENT MEDICATIONS: Current Outpatient Prescriptions Medication Sig Dispense Refill [...] MG tablet TAKE 1 TABLET BY MOUTH EVERY DAY 90 tablet 1 ??? lisinopril (PRINIVIL/ZESTRIL) 20 MG tablet TAKE 1 TABLET BY MOUTH DAILY 90 tablet 3 ??? metFORMIN (GLUCOPHAGE) 1000 MG tablet TAKE 1 TABLET BY MOUTH TWICE DAILY 60 tablet 4 ??? Multiple Vitamin (DAILY MULTIVITAMIN PO) Take [...] DIABETES Son type 2 DM age 50 SOCIAL HISTORY: Social History Social History ??? Marital status: Spouse name: Rita Vargas ??? Number of children: 3 ??? 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 Smoking status: Former Smoker Quit date: 02/29/1980 ??? Smokeless tobacco: Never Used ??? Alcohol use Yes Comment: occasionally ??? Drug use: No ??? Sexual activity: Yes Partners: Female Other Topics Concern ??? None Social History Narrative has diabetes also Review of Systems: Skin: Negative for Eyes: Negative for ENT: Negative for Respiratory: Negative for Cardiovascular: Negative for Gastroenterology: Negative for Genitourinary: Positive for urinary frequency Musculoskeletal: Negative for Neurologic: Positive for numbness or tingling of hands Psychiatric: Negative for Heme/Lymph/Imm: Negative Endocrine: Positive for diabetes Recent Lab Results: LIPID RESULTS: Lab Results Component Value Date CHOL 151 05/14/2017 HDL 55 05/14/2017 LDL 83 05/14/2017 TRIG 66 05/14/2017 CHOLHDLRATIO 3.0 03/21/2014 LIVER ENZYME RESULTS: Lab Results Component Value Date AST 20 04/21/2017 ALT 24 04/21/2017 CBC RESULTS: Lab Results Component Value Date WBC 9.2 07/13/2016 RBC 4.01 (L) 07/13/2016 HGB 11.9 (L) 07/13/2016 HCT 33.9 (L) 07/13/2016 MCV 85 07/13/2016 MCH 29.7 07/13/2016 MCHC 35.1 07/13/2016 RDW 13.1 07/13/2016 PLT 228 07/13/2016 BMP RESULTS: Lab Results Component Value Date NA 135 04/21/2017 POTASSIUM 4.4 04/21/2017 CHLORIDE 100 04/21/2017 CO2 24 04/21/2017 ANIONGAP 11 04/21/2017 GLC 167 (H) 04/21/2017 BUN 32 (H) 04/21/2017 CR 1.22 04/21/2017 GFRESTIMATED 57 (L) 04/21/2017 GFRESTBLACK 69 04/21/2017 JAYDEN 9.4 04/21/2017 A1C RESULTS: Lab Results Component Value Date A1C 7.5 (H) 04/21/2017 INR RESULTS: Lab Results Component Value Date INR 1.10 07/13/2016 ECHOCARDIOGRAM No results found for this or any previous visit (from the past 8760 hour(s)). No orders of the defined types were placed in this encounter. No orders of the defined types were placed in this encounter. There are no discontinued medications. No diagnosis found. CC Christian Steiner MD [address] [facility] [place] [address] documented in this encounter Plan of Treatment Upcoming Encounters Date Type Specialty Care Team Description 06/18/2022 Ancillary Procedure Cardiology Abdi Bailey MD [address] [facility] [address] [place] [address] (Wo rk) documented as of this encounter Visit Diagnoses Diagnosis Cardiac pacemaker in situ - Primary AV block Atrioventricular block, unspecified Benign essential hypertension Essential hypertension, benign documented in this encounter Care Teams Digital Printer Operator Relationship Specialty Start Date End Date Christian Steiner MD PCP - General Internal Medicine 08/30/12 Christian Steiner MD PCP - Assigned PCP 08/11/1208/16/18 Christian Steiner MD Assigned PCP 08/11/12 02/22/21 documented as of this encounter
--- OUTSIDE RECORDS SUMMARY | 2022-04-27 07:37 | XMS_ITS | Encounter Summary ---
:1935 Author Organization [place] Address [facility] [place] [address] Care Team Providers Name Role Phone Christian Steiner MD Primary Care Provider Unavailable Christian Steiner MD Unavailable Unavailable Christian Steiner MD Unavailable Unavailable Reason for Referral CV Testing - Closed Specialty Diagnoses / Procedures Referred By Contact Refer red To Contact Diagnoses Ke Cohen MD Procedures Cardiac Device Check - In Clinic [address] [place] [address] Referral ID Status Reason Start Date Expiration Date Visits Requ ested Visits Authorized [id number] Closed 07/27/2018 07/27/2019 1 1 R SAW OPERATOR Reason for Visit CV Testing - Closed Specialty Diagnoses / Procedures Referred By Contact Refer red To Contact Diagnoses Ke Cohen MD Procedures Cardiac Device Check - Remote [address] [place] [address] Referral ID Status Reason Start Date Expiration Date Visits Requ ested Visits Authorized [id number] Closed 05/14/2018 05/14/2019 1 1 Encounter Details Date Type Department Care Team Description 07/27/2018 Ancillary Procedure [facility] Ke Hernandes eart [facility] MD [facility] [address] [place] [address] [place] [id number] [phone] Social History Tobacco Use Types Packs/Day Years [...] [address] [place] [address] (Wo rk) documented as of this encounter Procedures Procedure Name Priority Date/Time Associated Comments Diagnosis INTERROGATION DEVICE Routine 07/27/2018 1:25 PM Heart block R esults for this EVAL REMOTE PACER UP POWER SAW OPERATOR procedu re are in TO 90 DAYS the results section. documented in this encounter Results PM DEVICE PROGRAMMING EVAL, DUAL LEAD PACER (10/19/2018 10:11 AM CDT) Component Value Ref Test Analysis Performed Pathologis t Range Method Time At Signature Date Time [id number] [employer] Interrogation Session Implantable Medtronic [employer]TRONIC Pulse Generator Pit Steward Implantable [id number] Advisa MEDTRONIC Pulse Generator MRI Model Implantable [id number] [facility] Pulse Generator Serial Number Type In Clinic [facility] Interrogation Session Clinic Name [facility] MEDTRONIC Implantable Pacemaker MEDTRONIC Pulse Generator Type Implantable [id number] MEDTRONIC Pulse Generator Implant Date Implantable Lead Medtronic MEDTRONIC Pit Steward Implantable Lead 5076 CapSureFix MEDTRON IC Model Novus MRI SureScan Implantable Lead [id number] [employer]IC Serial Number Implantable Lead [id number] MEDTRONIC Implant Date Implantable Lead Bipolar Lead [employer]IC Polarity Type Implantable Lead UNKNOWN [facility]IC Location Detail 1 Implantable Lead Right [facility]TRONIC Location Implantable Lead Medtronic MEDTRONIC Pit Steward Implantable Lead 5076 CapSureFix MEDTRON IC Model Novus MRI SureScan Implantable Lead [id number] [employer] Serial Number Implantable Lead [id number] MEDTRONIC [...] [employer]TRONIC Pacing Threshold Pulse Width Battery Date [id number] Time of Measurements Battery Status OK [employer] Battery POTTERY KILN BUILDER 2.83 [employer]IC Trigger Battery 81 mo MEDTRONIC Remaining Longevity Battery Voltage 3.01 V [employer]TRONIC Irving Statistic [id number] [employer]TRONIC Date Time Start Irving Statistic [id number] [employer]TR[employer]IC Date Time End Irving Statistic 21.97 % [employer] RA Percent Paced Irving Statistic 99.70 % [employer]TR[employer]IC RV Percent Paced Irving Statistic 22.08 % [employer] AP FREIGHT BRAKE OPERATOR Percent Irving Statistic 77.84 % [employer]IC FREIGHT BRAKE OPERATOR Percent Irving Statistic 0 % [employer] AP VS Percent Irving Statistic 0.08 % [employer]IC VS Percent Atrial Tachy [id number] [employer]TRONIC Statistic Date Time Start Atrial Tachy [id number] [employer]TRONIC Statistic Date Time End Atrial Tachy 0 % MEDTRONIC Statistic AT/AF Mercer Percent Episode 0 [employer]IC Statistic Recent Count Episode AT/AF [employer]IC Statistic Type Category Episode 0 [facility]ONIC Statistic Recent Count Episode SVT [facility]TRONIC Statistic Type Category Episode 0 [facility]TRONIC Statistic Recent Count Episode VT [facility]TRONIC Statistic Type Category Episode 0 [facility]TR[facility]IC Statistic Recent Count Episode VT [facility]TRONIC Statistic Type Category Episode [id number] [facility]IC Statistic Recent Date Time Start Episode [id number] [facility] Statistic Recent Date Time End Episode [id number] [facility] Statistic Recent Date Time Start Episode [id number] [facility] Statistic Recent Date Time End Episode [id number] [facility]TR[employer]IC Statistic Recent Date Time Start Episode [id number] [employer]IC Statistic Recent Date Time End Episode [id number] [facility]TRONIC Statistic Recent Date Time Start Episode [id number] [facility]TRONIC Statistic Recent Date Time End Episode 1 [facility]TRONIC Statistic Total Count Episode AT/AF [facility]IC Statistic Type Category Episode 0 MEDTRONIC Statistic Total Count Episode SVT MEDTRONIC Statistic Type Category Episode 1 MEDTRONIC Statistic Total Count Episode VT MEDTRONIC Statistic Type Category Episode 0 MEDTRONIC Statistic Total Count Episode VT [facility]TRONIC Statistic Type Category Episode [id number] [facility]TRONIC Statistic Total Date Time Start Episode [id number] [facility]TRONIC Statistic Total Date Time End Episode [id number] MEDTRONIC Statistic Total Date Time Start Episode [id number] [facility]TRONIC Statistic Total Date Time End Episode [id number] [facility]TRONIC Statistic Total Date Time Start Episode [id number] [employer]IC Statistic Total Date Time End Episode [id number] [facility] Statistic Total Date Time Start Episode [id number] [facility] Statistic Total Date Time End Anatomical Region Laterality Modality Other Specimen (Source) Anatomical Collection Method Collection Time Re ceived Time Location / / Volume Laterality 10/19/2018 2:51 PM CDT Narrative 11/15/2018 1:01 PM CDT Pacemaker Device Check Medtronic AdvisaAP: 22%FREIGHT BRAKE OPERATOR: 100%Mode: DDD 60-130 bpmUnderlying Rhythm: SR with [...] EVAL REMOTE PACER UP TO 90 DAYS (07/27/2018 1:25 PM POWER SAW OPERATOR) Component Value Ref Test Analysis Performed Pathologis t Range Method Time At Signature Date Time [id number] [employer] Interrogation Session Implantable Medtronic MEDTRONIC Pulse Generator Pit Steward Implantable [id number] Advisa MEDTRONIC Pulse Generator MRI Model Implantable [id number] [employer]IC Pulse Generator Serial Number Type Remote [facility] Interrogation Session Clinic Name [facility]IC Implantable Pacemaker MEDTRONIC Pulse Generator Type Implantable [id number] MEDTRONIC Pulse Generator Implant Date Implantable Lead Medtronic MEDTRONIC Pit Steward Implantable Lead 5076 CapSureFix MEDTRON IC Model Novus MRI SureScan Implantable Lead [id number] [employer]TRONIC Serial Number Implantable Lead [id number] MEDTRONIC Implant Date Implantable Lead Bipolar Lead [facility]IC Polarity Type Implantable Lead UNKNOWN [facility]TR[facility]IC Location Detail 1 Implantable Lead Right [facility]TRONIC Location Implantable Lead Medtronic MEDTRONIC Pit Steward Implantable Lead 5076 CapSureFix MEDTRON IC Model Novus MRI SureScan Implantable Lead [id number] [employer]IC Serial Number Implantable Lead [id number] MEDTRONIC [...] MEDTRONIC Pacing Threshold Pulse Width Lead Channel 570 ohm MEDTRONIC Impedance Value Lead Channel 494 ohm [facility]TRONIC Impedance Value Lead Channel 9.375 mV [employer]TR[employer]IC Sensing Intrinsic Amplitude Lead Channel 9.375 mV MEDTRONIC Sensing Intrinsic Amplitude Lead Channel 0.5 V [employer]TR[employer]IC Pacing Threshold Amplitude Lead Channel 0.4 ms [employer]TR[employer]IC Pacing Threshold Pulse Width Battery Date [id number] MEDTRONIC Time of Measurements Battery Status OK [employer]TR[employer]IC Battery POTTERY KILN BUILDER 2.83 MEDTR[employer]IC Trigger Battery 86 mo MEDTRONIC Remaining Longevity Battery Voltage 3.01 V MEDTRONIC Irving Statistic [id number] MEDTRONIC Date Time Start Irving Statistic [id number] MEDTRONIC Date Time End Irving Statistic 23.06 % MEDTRONIC RA Percent Paced Irving Statistic 99.47 % MEDTRONIC RV Percent Paced Irving Statistic 23.24 % [employer]TR[employer]IC AP FREIGHT BRAKE OPERATOR Percent Irving Statistic 76.67 % [employer]TR[employer]IC FREIGHT BRAKE OPERATOR Percent Irving Statistic 0 % [employer]TR[employer]IC AP VS Percent Irving Statistic 0.09 % [employer]TR[employer]IC VS Percent Atrial Tachy [id number] MEDTRONIC Statistic Date Time Start Atrial Tachy [id number] MEDTRONIC Statistic Date Time End Atrial Tachy 0 % MEDTRONIC Statistic AT/AF Mercer Percent Episode 0 MEDTRONIC Statistic Recent Count Episode AT/AF [facility]TRONIC Statistic Type Category Episode 0 MEDTRONIC Statistic Recent Count Episode SVT MEDTRONIC Statistic Type Category Episode 0 MEDTRONIC Statistic Recent Count Episode VT MEDTRONIC Statistic Type Category Episode 0 MEDTRONIC Statistic Recent Count Episode VT MEDTRONIC Statistic Type Category Episode [id number] MEDTRONIC Statistic Recent Date Time Start Episode [id number] MEDTRONIC Statistic Recent Date Time End Episode [id number] MEDTRONIC Statistic Recent Date Time Start Episode [id number] [facility]TRONIC Statistic Recent Date Time End Episode [id number] [facility]TRONIC Statistic Recent Date Time Start Episode [id number] [facility]TRONIC Statistic Recent Date Time End Episode [id number] MEDTRONIC Statistic Recent Date Time Start Episode [id number] [facility]TRONIC Statistic Recent Date Time End Episode 1 MEDTRONIC Statistic Total Count Episode AT/AF [facility]TRONIC Statistic Type Category Episode 0 MEDTRONIC Statistic Total Count Episode SVT MEDTRONIC Statistic Type Category Episode 1 MEDTRONIC Statistic Total Count Episode VT MEDTRONIC Statistic Type Category Episode 0 MEDTRONIC Statistic Total Count Episode VT MEDTRONIC Statistic Type Category Episode [id number] MEDTRONIC Statistic Total Date Time Start Episode [id number] MEDTRONIC Statistic Total Date Time End Episode [id number] MEDTRONIC Statistic Total Date Time Start Episode [id number] MEDTRONIC Statistic Total Date Time End Episode [id number] MEDTRONIC Statistic Total Date Time Start Episode [id number] MEDTRONIC Statistic Total Date Time End Episode [id number] MEDTRONIC Statistic Total Date Time Start Episode [id number] MEDTRONIC Statistic Total Date Time End Anatomical Region Laterality Modality Other Specimen (Source) Anatomical Collection Method Collection Time Re ceived Time Location / / Volume Laterality 07/27/2018 7:36 PM POWER SAW OPERATOR Narrative 07/29/2018 4:48 PM POWER SAW OPERATOR Medtronic Advisa (D) Remote PPM Device CheckAP: 23%\[id number]\FREIGHT BRAKE OPERATOR: 100%Mode: ?? DDD ? Presenting Rhythm: /VPHeart Rate: Adequate rates per histogramSensing: stable ?Pacing Thr eshold: stable ?Impedance: stableBattery Status: 6-8 yearsAtrial Ar rhythmia: 1 brief mode switch episode, no EGMVentricular Arrhythmia: N oneCare Plan: F/u annual threshold in 3 months. Gave patient results over t he phone. Nan,CVTI have reviewed and interpreted the device inte rrogation, settings, programming and nurse's summary. The device is funct ioning within normal device parameters. I agree with the current fin dings, assessment and plan. Ke Hernandes MD CV CARDIAC SERVICES ORDERABL ES documented in this encounter Visit Diagnoses Diagnosis Heart block Conduction disorder, unspecified Cardiac pacemaker in situ - Primary Heart block Conduction disorder, unspecified documented in this encounter Care Teams Show Host/Hostess Relationship Specialty Start Date End Date Christian Steiner MD PCP - General Internal Medicine 08/30/12 Christian Steiner MD PCP - Assigned PCP 08/11/1208/16/18 Christian Steiner MD Assigned PCP 08/11/12 02/22/21 documented as of this encounter
--- OUTSIDE RECORDS SUMMARY | 2022-04-27 07:37 | XMS_ITS | Encounter Summary ---
:1935 Author Organization [place] Address [address] [place] [address] Care Team Providers Name Role Phone Christian Steiner MD Primary Care Provider Unavailable Christian Steiner MD Unavailable Unavailable Christian Steiner MD Unavailable Unavailable Reason for Visit Reason Onset Date Comments Medication Refill 11/01/2017 GLIPIZIDE 5MG TABLET S Encounter Details Date Type Department Care Team Description 11/01/2017 Refill [facility] Christian Steiner, Medication Refill [facility] Reagan aguilar MD (GLIPIZIDE 5MG TABLETS) [address] [facility] [address] [place] [address] Social History Tobacco Use Types Packs/Day Years Used Date Smoking Tobacco: Former Cigarettes Quit : 02/29/1980 Smokeless Tobacco: Never Alcohol Use Standard Drinks/Week Comments Yes 0 (1 standard drink = 0.6 oz pure alcoho l) occasionally Sex Assigned at Date Recorded Not on file documented as of this encounter Miscellaneous Notes Telephone Encounter - Bita Sigala RN - 11/03/2017 12:14 PM CDT Medication is being filled for 1 time refill only due to: Patient needs labs A1C prior to next refill.. Telephone Encounter - Vesna Morrow LPN - 11/01/2017 11:20 AM CDT Requested Prescriptions Pending Prescriptions Disp Refills ??? glipiZIDE (GLUCOTROL) 5 MG tablet [Pharmacy Med Name: GLIPIZIDE 5MG TABLETS] 90 tablet 0 Last Written Prescription Date: 05/19/2017 Last Fill Quantity: 90, # refills: 1 Last office visit: 04/21/2017 with prescribing provider: Dr. Steiner Future Office Visit: Sig: TAKE 1 TABLET BY MOUTH EVERY DAY Sulfonylurea Agents Failed 11/01/2017 11:04 AM Failed - Patient has documented A1c within the specified period of time. If HgbA1C is 8 or greater, it needs to be on file within the past 3 months. If less than 8, must beon file within the past 6 months. Recent Labs Lab Test 04/21/17 1644 A1C 7.5* Failed - Recent (6 mo) or future (30 days) visit within the authorizing provider's specialty Patient had office visit in the last 6 months or has a visit in the next 30 days with authorizing provider or within the authorizing provider's specialty. See Patient Info tab in inbasket, or Choose Columns in Meds & Orders section of the refill encounter. Passed - Blood pressure less than 140/90 in past 6 months BP Readings from Last 3 Encounters: 09/29/17 122/74 09/06/17 118/68 04/21/17 124/62 Passed - Patient has documented LDL within the past 12 mos. Recent Labs Lab Test 05/14/17 0807 LDL 83 Passed - Patient has had a Microalbumin in the past 12 mos. Recent Labs Lab Test 04/21/17 1644 05/03/12 MICROALB -- -- 10 MICROL 10 < > -- UMALCR 6.14 < > <30 < > = values in this interval not displayed. Passed - Patient is age 18 or older Passed - Patient has a recent creatinine (normal) within the past 12 mos. Recent Labs Lab Test 04/21/17 1644 CR 1.22 documented in this encounter Plan of Treatment Upcoming Encounters Date Type Specialty Care Team Description 06/18/2022 Ancillary Procedure Cardiology Abdi Bailey MD [address] [place] [address] (Wo rk) documented as of this encounter Visit Diagnoses Diagnosis Type 2 diabetes mellitus without complic ation, without long-term current use of insulin (H) documented in this encounter Care Teams Voice Coach Relationship Specialty Start Date End Date Christian Steiner MD PCP - General Internal Medicine 08/30/12 Christian Steiner MD PCP - Assigned PCP 08/11/1208/16/18 Christian Steiner MD Assigned PCP 08/11/12 02/22/21 documented as of this encounter
--- OUTSIDE RECORDS SUMMARY | 2022-04-27 07:37 | XMS_ITS | Encounter Summary ---
:1935 Author Organization [place] Address [address] [place] [address] Care Team Providers Name Role Phone Christian Steiner MD Primary Care Provider Unavailable Christian Steiner MD Unavailable Unavailable Christian Steiner MD Unavailable Unavailable Humberto Good MD Unavailable Ke Hernandes MD Unavailable Ina Sheriff MD Primary Care Provider [phone] Herson Licea MD Unavailable Ke Hernandes MD Unavailable Reason for Visit Reason Comments Medication Refill duplicate Encounter Details Date Type Department Care Team Description 01/27/2018 Refill [facility] Christian Steiner, Medication Refill [facility] Reagan aguilar MD (duplicate) [address] [facility] [address] [place] [address] Social History Tobacco Use Types Packs/Day Years Used Date Smoking Tobacco: Former Cigarettes Quit : 02/29/1980 Smokeless Tobacco: Never Alcohol Use Standard Drinks/Week Comments Yes 0 (1 standard drink = 0.6 oz pure alcoho l) occasionally Sex Assigned at Date Recorded Not on file documented as of this encounter Miscellaneous Notes Telephone Encounter - Maisha Barone DO - 01/28/2018 11:42 AM CDT Only 30 days provided. Needs to be seen with labs for more refills. Telephone Encounter - Bita Sigala RN - 01/28/2018 11:16 AM CDT Routing refill request to provider for review/approval because: Labs not current: Related to medication. Telephone Encounter - Livier Alvarado CMA - 01/27/2018 3:27 PM CDT Requested Prescriptions Pending Prescriptions Disp Refills ??? glipiZIDE (GLUCOTROL) 5 MG tablet [Pharmacy Med Name: GLIPIZIDE 5MG TABLETS] Last Written Prescription Date: duplicate Last Fill Quantity: , # refills: Last office visit: 04/21/2017 with prescribing provider: Future Office Visit: 90 tablet 0 Sig: TAKE 1 TABLET BY MOUTH ONCE DAILY Sulfonylurea Agents Failed 01/27/2018 1:49 PM Failed - Patient has documented A1c within [...] [address] [place] [address] (Wo rk) documented as of this encounter Visit Diagnoses Diagnosis Type 2 diabetes mellitus without complic ation, without long-term current use of insulin (H) documented in this encounter Care Teams Vat Tender Relationship Specialty Start Date End Date Christian Steiner MD PCP - General Internal Medicine 08/30/12 Christian Steiner MD PCP - Assigned PCP 08/11/1208/16/18 Ina Sheriff, PCP - General Family Medicine 01/30/[address] [address] Christian Steiner MD Assigned PCP 08/11/12 02/22/21 Humberto Good, Assigned Surgical 04/05/20 02/01/21 MD Provider [address] [place] [address] Ke Hernandes, Assigned Heart and 04/28/20 10/11/21 MD Vascular Provider [address] [place] [address] Herson Licea, Assigned Surgical 02/02/21 MD Provider [address] [place], [place] [address] Ke Hernandes, Assigned Heart and 12/13/21 MD Vascular Provider [address] [place] [phone] documented as of this encounter
--- OUTSIDE RECORDS SUMMARY | 2022-04-27 07:37 | XMS_ITS | Encounter Summary ---
:1935 Author Organization [place] Address [address] [place] [address] Care Team Providers Name Role Phone Christian Steiner MD Primary Care Provider Unavailable Christian Steiner MD Unavailable Unavailable Christian Steiner MD Unavailable Unavailable Humberto Good MD Unavailable Ke Hernandes MD Unavailable Ina Sheriff MD Primary Care Provider [phone] Herson Licea MD Unavailable Ke Hernandes MD Unavailable Reason for Visit Reason Comments Medication Refill METFORMIN 1000MG TABLETS, gl ipiZIDE (GLUCOTROL) 5 MG Encounter Details Date Type Department Care Team Description 01/25/2018 Refill [facility] Christian Steiner, Medication Refill [facility] Reagan aguilar MD (METFORMIN 1000MG [address] [facility] TABLETS, glipiZIDE [address] (GLUCOTROL) 5 MG) [place] [address] Social History Tobacco Use Types Packs/Day Years Used Date Smoking Tobacco: Former Cigarettes Quit : 02/29/1980 Smokeless Tobacco: Never Alcohol Use Standard Drinks/Week Comments Yes 0 (1 standard drink = 0.6 oz pure alcoho l) occasionally Sex Assigned at Date Recorded Not on file documented as of this encounter Miscellaneous Notes Telephone Encounter - Ethel Olson RN - 01/27/2018 12:50 PM CDT Medication is being filled for 1 time refill only due to: Patient needs to be seen because for a diabetes check, needs to be seen every 6 months . Telephone Encounter - Sofía Gore CYBER FORENSIC SPECIALIST - 01/26/2018 9:36 AM CDT Requested Prescriptions Pending Prescriptions Disp Refills ??? metFORMIN (GLUCOPHAGE) 1000 MG tablet [Pharmacy Med Name: METFORMIN 1000MG TABLETS] 180 tablet 0 Last Written Prescription Date: 10/12/17 Last Fill Quantity: 180, # refills: 0 Last office visit: 04/21/2017 with prescribing provider: Future Office Visit: Sig: TAKE 1 TABLET BY MOUTH TWICE DAILY Biguanide Agents Failed 01/25/2018 1:11 PM Failed - Patient has documented A1c [...] is age 10 or older Passed - Patient's CR is NOT>1.4 OR Patient's EGFR is NOT<45 within past 12 mos. Recent Labs Lab Test 04/21/17 1644 GFRESTIMATED 57* GFRESTBLACK 69 Recent Labs Lab Test 04/21/17 1644 CR 1.22 Passed - Patient does NOT have a diagnosis of CHF. ??? glipiZIDE (GLUCOTROL) 5 MG tablet [Pharmacy Med Name: GLIPIZIDE 5MG TABLETS] 90 tablet 0 Last Written Prescription Date: 11/03/17 Last Fill Quantity: 90, # refills: 0 Last office visit: 04/21/2017 with prescribing provider: Future Office Visit: Sig: TAKE 1 TABLET BY MOUTH EVERY DAY Sulfonylurea Agents Failed 01/25/2018 1:11 PM Failed - Patient has documented A1c [...] [address] [place] [address] (Wo rk) documented as of this encounter Visit Diagnoses Diagnosis Type 2 diabetes mellitus without complic ation, without long-term current use of insulin (H) documented in this encounter Care Teams [place] Operator Relationship Specialty Start Date End Date Christian Steiner MD PCP - General Internal Medicine 08/30/12 Christian Steiner MD PCP - Assigned PCP 08/11/1208/16/18 Ina Sheriff, PCP - General Family Medicine 01/30/[address] [address] Christian Steiner MD Assigned PCP 08/11/12 02/22/21 Humberto Good, Assigned Surgical 04/05/20 02/01/21 MD Provider [address] [place] [address] Ke Hernandes, Assigned Heart and 04/28/20 10/11/21 MD Vascular Provider [address] [place] [address] Herson Licea, Assigned Surgical 02/02/21 MD Provider [address] [place], [place] [address] Ke Hernandes, Assigned Heart and 12/13/21 MD Vascular Provider [address] [place], [place] [address] documented as of this encounter
--- OUTSIDE RECORDS SUMMARY | 2022-04-27 07:37 | XMS_ITS | Encounter Summary ---
:[address] Address [address] [place] [address] Care Team Providers Name Role Phone Christian Steiner MD Primary Care Provider Unavailable Christian Steiner MD Unavailable Unavailable Christian Steiner MD Unavailable Unavailable Reason for Visit Reason Comments Medication Refill atorvastatin (LIPITOR) 40 MG tablet Encounter Details Date Type Department Care Team Description 03/03/2018 Refill [facility] Christian Steiner, Medication Refill [facility] Reagan aguilar MD (atorvastatin (LIPITOR) [address] [facility] 40 MG tablet) [address] [place] [phone] Social History Tobacco Use Types Packs/Day Years Used Date Smoking Tobacco: Former Cigarettes Quit : 02/29/1980 Smokeless Tobacco: Never Alcohol Use Standard Drinks/Week Comments Yes 0 (1 standard drink = 0.6 oz pure alcoho l) occasionally Sex Assigned at Date Recorded Not on file documented as of this encounter Miscellaneous Notes Telephone Encounter - Nathan Alvarado RN - 03/03/2018 11:19 AM CDT Prescription approved per [facility] Refill Protocol. Telephone Encounter - Morena Salomon - 03/03/2018 11:01 AM CDT Requested Prescriptions Pending Prescriptions Disp Refills ??? atorvastatin (LIPITOR) 40 MG tablet [Pharmacy Med Name: ATORVASTATIN 40MG TABLETS] Last Written Prescription Date: Last Fill Quantity: 90, # refills: 2 Last office visit: 02/16/2018 with prescribing provider: Obdulia Future Office Visit: 90 tablet 0 Sig: TAKE 1 TABLET BY MOUTH DAILY Statins Protocol Passed 03/03/2018 10:53 AM Passed - LDL on file in past 12 months Recent Labs Lab Test 02/16/18 0909 LDL 96 Passed - No abnormal creatine kinase in past 12 months No lab results found. Passed - Recent (12 mo) or future [...] - Patient is age 18 or older documented in this encounter Plan of Treatment Upcoming Encounters Date Type Specialty Care Team Description 06/18/2022 Ancillary Procedure Cardiology Abdi Bailey MD [address] [facility] [address] [place], [place] [address] (Wo rk) documented as of this encounter Visit Diagnoses Diagnosis Hyperlipidemia LDL goal <100 Other and unspecified hyperlipidemia documented in this encounter Care Teams Insole Tack Puller Hand Relationship Specialty Start Date End Date Christian Steiner MD PCP - General Internal Medicine 08/30/12 Christian Steiner MD PCP - Assigned PCP 08/11/1208/16/18 Christian Steiner MD Assigned PCP 08/11/12 02/22/21 documented as of this encounter
--- OUTSIDE RECORDS SUMMARY | 2022-04-27 07:37 | XMS_ITS | Encounter Summary ---
:1935 Author Organization [place] Address [address] [place] [address] Care Team Providers Name Role Phone Christian Steiner MD Primary Care Provider Unavailable Christian Steiner MD Unavailable Unavailable Christian Steiner MD Unavailable Unavailable Humberto Good MD Unavailable Ke Hernandes MD Unavailable Ina Sheriff MD Primary Care Provider [phone] [place] Licea MD Unavailable Ke Hernandes MD Unavailable Reason for Visit Reason Comments Medication Refill metFORMIN (GLUCOPHAGE) 1000 MG tablet Encounter Details Date Type Department Care Team Description 10/11/2017 Refill [facility] Christian Steiner, Medication Refill [facility] Reagan aguilar MD (metFORMIN (GLUCOPHAGE) [address] [facility] 1000 MG tablet) [address] [place] [address] Social History Tobacco Use Types Packs/Day Years Used Date Smoking Tobacco: Former Cigarettes Quit : 02/29/1980 Smokeless Tobacco: Never Alcohol Use Standard Drinks/Week Comments Yes 0 (1 standard drink = 0.6 oz pure alcoho l) occasionally Sex Assigned at Date Recorded Not on file documented as of this encounter Miscellaneous Notes Telephone Encounter - Aishwarya Nash RN - 10/12/2017 7:46 AM CDT Prescription approved per [facility] Refill Protocol. Telephone Encounter - Livier Alvarado CMA - 10/11/2017 10:13 AM CDT Requested Prescriptions Pending Prescriptions Disp Refills ??? metFORMIN (GLUCOPHAGE) 1000 MG tablet [Pharmacy Med Name: METFORMIN 1000MG TABLETS] Last Written Prescription Date: 05-19-17 Last Fill Quantity: 60tab, # refills: 4 Last office visit: 04/21/2017 with prescribing provider: Future Office Visit: 180 tablet 0 Sig: TAKE 1 TABLET BY MOUTH TWICE DAILY Biguanide Agents Passed 10/11/2017 9:17 AM Passed - Blood pressure less than 140/90 [...] A1c within the specified period of time. Recent Labs Lab Test 04/21/17 1644 A1C 7.5* Passed - Patient's CR is NOT>1.4 OR [...] [address] [place] [address] (Wo rk) documented as of this encounter Visit Diagnoses Diagnosis Type 2 diabetes mellitus without complic ation, without long-term current use of insulin (H) documented in this encounter Care Teams Cyber Transport Systems Specialist Relationship Specialty Start Date End Date Christian Steiner MD PCP - General Internal Medicine 08/30/12 Christian Steiner MD PCP - Assigned PCP 08/11/1208/16/18 Ina Sheriff, PCP - General Family Medicine 01/30/[address] [address] Christian Steiner MD Assigned PCP 08/11/12 02/22/21 Humberto Good, Assigned Surgical 04/05/20 02/01/21 MD Provider [address] [place] [address] Ke Hernandes, Assigned Heart and 04/28/20 10/11/21 MD Vascular Provider [address] [place] [address] Herson Lciea, Assigned Surgical 02/02/21 MD Provider [address] [place] [id number] Ke Hernandes, Assigned Heart and 12/13/21 MD Vascular Provider [address] [place], [place] [phone] documented as of this encounter
--- OUTSIDE RECORDS SUMMARY | 2022-04-27 07:37 | XMS_ITS | Encounter Summary ---
:1935 Author Organization [place] Address [facility] [place] [address] Care Team Providers Name Role Phone Christian Steiner MD Primary Care Provider Unavailable OstlundChristian MD Unavailable Unavailable OstlundChristian MD Unavailable Unavailable Encounter Details Date Type Department Care Team Description 09/06/2017 Orders Only [facility] Humberto Good Malignant neoplasm of Urology Clinic [place] Jimenez MD prostate (H) (Primary [address] [place] [address] [place] [address] [place] [address] [phone] Social History Tobacco Use Types Packs/Day Years [...] 06/18/2022 Ancillary Procedure Cardiology Abdi Bailey MD [address] [place] [id number] (Wo rk) documented as of this encounter Results PSA Diag Urologic Phys (09/06/2017 12:51 PM CDT) P athologist Signature PSA Diag <0.04 0.00 - 09/06/2017 [place] [facility] 4.00 ng/mL 1:09 PM CDT [facility] Comment: Test performed by chemiluminesc ent immunoassay using [employer] FastPack Specimen Anatomical Collection Method Collection Time Receive d Time (Source) Location / / Volume Laterality Blood specimen 09/06/2017 12:51 8 (specimen) PM CDT 12:53 PM CDT Humberto Good MD LAB - BLOOD ORDERABLES Performing Organization Address City/State/ZIP Code Phon e Number [place] [facility] [address] [place] [phone] CLINIC [address] (ABNORMAL) UA without Microscopic (09/06/2017 12:50 PM CDT) [facility] Method Time Signature Color Urine Yellow 09/06/2017 [...] 12:56 PM UROLOGIC CDT [facility] Specific [place] 1.020 1.003 - 09/06/2017 [place] Urine 1.035 [...] [facility] Nitrite Urine Negative NEG^Negat 09/06/2017 [place] jose david [...] Number [place] [facility] [address] [place] [phone] CLINIC [address] documented in this encounter Visit Diagnoses Diagnosis Malignant neoplasm of prostate (H) - Yadira carballo Malignant neoplasm of prostate documented in this encounter Care Teams Wan Support Specialist Relationship Specialty Start Date End Date Christian Steiner MD PCP - General Internal Medicine 08/30/12 Christian Steiner MD PCP - Assigned PCP 08/11/1208/16/18 Christian Steiner MD Assigned PCP 08/11/12 02/22/21 documented as of this encounter
--- OUTSIDE RECORDS SUMMARY | 2022-04-27 07:37 | XMS_ITS | Encounter Summary ---
:1935 Author Organization [facility] Address [address] [place] [address] Care Team Providers Name Role Phone Christian Steiner MD Primary Care Provider Unavailable Christian Steiner MD Unavailable Unavailable Christian Steiner MD Unavailable Unavailable Reason for Visit Reason Comments Pacemaker Check annual threshold Encounter Details Date Type Department Care Team Description 09/29/2017 [facility] Pac emaker Check (annual Visit Heart Clinic threshold) [address] [place] [address] Social History Tobacco Use Types Packs/Day Years Used Date Smoking Tobacco: Former Cigarettes Quit : 02/29/1980 Smokeless Tobacco: Never Alcohol Use Standard Drinks/Week Comments Yes 0 (1 standard drink = 0.6 oz pure alcoho l) occasionally Sex Assigned at Date Recorded Not on file documented as of this encounter Progress Notes Anita Allen RN - 09/29/2017 8:50 AM CDT Medtronic Advisa (D) Pacemaker Device Check AP: 16 % HEALTH PROGRAM MANAGER: 100 % Mode: DDDR 60-130 Underlying Rhythm: 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 OV with Dr. Hernandes today. EC RN documented in this encounter Plan of Treatment Upcoming Encounters Date Type Specialty Care Team Description 06/18/2022 Ancillary Procedure Cardiology Abdi Bailey MD [address] [place] [address] (Wo rk) documented as of this encounter Procedures Procedure Name Priority Date/Time Associated Diagnosis Comme [facility] PM DEVICE PROGRAMMING Routine 09/29/2017 Cardiac pacemaker in situ EVAL, DUAL LEAD PACER AV block documented in this encounter Results PM DEVICE PROGRAMMING EVAL, DUAL LEAD PACER ([id number]) (09/29/2017) Narrative This result has an attachment that is no t available. 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
--- OUTSIDE RECORDS SUMMARY | 2022-04-27 07:37 | XMS_ITS | Encounter Summary ---
:1935 Author Organization [place] Address [facility] [place] [address] Care Team Providers Name Role Phone Christian Steiner MD Primary Care Provider Unavailable Christian Steiner MD Unavailable Unavailable Christian Steiner MD Unavailable Unavailable Reason for Visit Reason Onset Date Comments Previsit 09/27/2017 Encounter Details Date Type Department Care Team Description 09/27/2017 PRE VISIT [facility] Eileen Hernnades MD Previsit Clinic [place] [address] [facility] [address] [place] [address] [place] [address] [phone] Social History Tobacco Use Types Packs/Day Years [...] Team Description 06/18/2022 Ancillary Procedure Cardiology Abdi aBiley MD [address] [place], [place] [phone] (Wo rk) documented as of this encounter Visit Diagnoses Not on filedocumented in this encounter Care Teams Final Finisher Forging Dies Relationship Specialty Start Date End Date Christian Steiner MD PCP - General Internal Medicine 08/30/12 Christian Steiner MD PCP - Assigned PCP 08/11/1208/16/18 Christian Steiner MD Assigned PCP 08/11/12 02/22/21 documented as of this encounter
--- OUTSIDE RECORDS SUMMARY | 2022-04-27 07:37 | XMS_ITS | Encounter Summary ---
:1935 Author Organization [place] Address [address] [place] [address] Care Team Providers Name Role Phone Christian Steiner MD Primary Care Provider Unavailable Christian Steiner MD Unavailable Unavailable Christian Steiner MD Unavailable Unavailable Reason for Visit Reason Onset Date Comments Forms 02/21/2018 max diabetic t est strips Encounter Details Date Type Department Care Team Description 02/21/2018 Telephone [facility] Christian Steiner, [facility] Reagan aguilar MD diabetic test strips) [address] [facility] [address] [place] [phone] Social History Tobacco Use Types Packs/Day Years Used Date Smoking Tobacco: Former Cigarettes Quit : 02/29/1980 Smokeless Tobacco: Never Alcohol Use Standard Drinks/Week Comments Yes 0 (1 standard drink = 0.6 oz pure alcoho l) occasionally Sex Assigned at Date Recorded Not on file documented as of this encounter Miscellaneous Notes Telephone Encounter - Guera Jack - 02/23/2018 10:00 AM CDT Faxed back Telephone Encounter - Guera Jack - 02/21/2018 3:34 PM CDT Our goal is to have forms completed within 72 hours, however some forms may require a visit or additional information. What clinic location was the form [facility] at [facility] or [place] Who is the form from? Where did the form come from? Faxed to clinic The form was placed in the inbox of Christian Steiner MD Please fax to [phone] Phone number: [phone] Additional comments: max diabetic test strips Call take on 02/21/2018 at 3:34 PM by Guera Jack documented in this encounter Plan of Treatment Upcoming Encounters Date Type Specialty Care Team Description 06/18/2022 Ancillary Procedure Cardiology Abdi Bailey MD [address] [place] [address] (Wo rk) documented as of this encounter Visit Diagnoses Not on filedocumented in this encounter Care Teams Knife Edger Relationship Specialty Start Date End Date Christian Steiner MD PCP - General Internal Medicine 08/30/12 Christian Steiner MD PCP - Assigned PCP 08/11/1208/16/18 Christian Steiner MD Assigned PCP 08/11/12 02/22/21 documented as of this encounter
--- OUTSIDE RECORDS SUMMARY | 2022-04-27 07:38 | XMS_ITS | Encounter Summary ---
:1935 Author Organization [place] Address [address] [place] [address] Care Team Providers Name Role Phone Christian Steiner MD Primary Care Provider Unavailable Christian Steiner MD Unavailable Unavailable Christian Steiner MD Unavailable Unavailable Reason for Visit Reason Onset Date Comments Hospital F/U 07/15/2016 DOS 07/14/16 Chief Co mplaint: 3rd Degree Heart Block, Third Degree Heart Block ( H) Encounter Details Date Type Department Care Team Description 07/15/2016 Telephone [facility] Christian Steiner, Hospital F/U (DOS [facility] Reagan aguilar MD 07/14/[address] [place] [address] OUT Complaint: 3rd Degree [address] Heart Block, Third [place], [place] Degree Heart Block (H)) [phone] Social History Tobacco Use Types Packs/Day Years Used Date Smoking Tobacco: Former Cigarettes Quit : 02/29/1980 Smokeless Tobacco: Never Alcohol Use Standard Drinks/Week Comments Yes 0 (1 standard drink = 0.6 oz pure alcoho l) occasionally Sex Assigned at Date Recorded Not on file documented as of this encounter Miscellaneous Notes Telephone Encounter - Nathan Alvarado RN - 07/15/2016 9:26 AM CST Please see telephone call dated 07/15/2016 from cardiology. Outreached completed by senior analyst. Pthas future appts scheduled 07/21/2016 and 09/08/2016. ER documented in this encounter Plan of Treatment Upcoming Encounters Date Type Specialty Care Team Description 06/18/2022 Ancillary Procedure Cardiology Abdi Bailey MD [address] [place] [address] (Wo rk) documented as of this encounter Visit Diagnoses Not on filedocumented in this encounter Care Teams Bindery Machine Tender Relationship Specialty Start Date End Date Christian Steiner MD PCP - General Internal Medicine 08/30/12 Christian Steiner MD PCP - Assigned PCP 08/11/1208/16/18 Christian Steiner MD Assigned PCP 08/11/12 02/22/21 documented as of this encounter
--- OUTSIDE RECORDS SUMMARY | 2022-04-27 07:38 | XMS_ITS | Encounter Summary ---
:1935 Author Organization [facility] Address [address] [place] [address] Care Team Providers Name Role Phone Christian Steiner MD Primary Care Provider Unavailable Christian Steiner MD Unavailable Unavailable Christian Steiner MD Unavailable Unavailable Reason for Visit Reason Comments Hospital F/U Encounter Details Date Type Department Care Team Description 07/21/2016 Office Visit [facility] Christian Steiner Type 2 di abetes mellitus without complication, without long-term current use of insulin (H) (Primary Dx); [facility] [place] MD Daisy Lares hypertension with goal blood pressure less than 140/[address] [address] Social History Tobacco Use Types Packs/Day [...] Reading Time Taken Comments Blood Pressure 138/78 07/21/2016 1:49 PM PARTS CLASSIFIER Pulse 78 07/21/2016 1:49 PM PARTS CLASSIFIER Temperature 36.4 ??C (97.5 ??F) 07/21/2016 1:49 PM PARTS CLASSIFIER Respiratory Rate 20 07/21/2016 1:49 PM PARTS CLASSIFIER Oxygen Saturation 97% 07/21/2016 1:49 PM PARTS CLASSIFIER Inhaled Oxygen Concentration - - Weight 95.3 kg (210 lb) 07/21/2016 1:49 PM PARTS CLASSIFIER Height 182.9 cm (6') 07/21/2016 1:49 PM PARTS CLASSIFIER Body Mass Index 28.48 07/21/2016 1:49 PM PARTS CLASSIFIER documented in this encounter Patient Instructions Patient InstructionsChristian Steiner MD - 07/21/2016 2:10 PM CST Let's do this: Try to check your glucose at various times; check either before a meal, or else 2 hours after a meal. Be sure to record the exact time, and whether this is before or after a meal. If youhave any low glucose readings, (under 75) ,then cut back the evening glipizide to 1/2 tablet or 2.5 mg per dose. Also, increase the lisinopril to 20 mg per day. S CLASSIFIER documented in this encounter Progress Notes Christian Steiner MD - 07/21/2016 1:54 PM CST SUBJECTIVE: Janeth See is a 81 year old male who presents to clinic today for the following health issues: Hospital Follow-up Visit: Hospital/Longterm/IP Rehab Facility: [facility] Date of Admission: 07/12/2016 Date of Discharge: 07/14/2016 Reason(s) for Admission: Bradycardia and Pacemaker placement Problems taking medications regularly: None Medication changes since discharge: see med list Problems adhering to non-medication therapy: None Summary of hospitalization: [facility] discharge summary reviewed Diagnostic Tests/Treatments reviewed. Follow up needed: Cardio In August Other Healthcare Providers Involved in Patient???s Care: None Update since discharge: stable. Post Discharge Medication Reconciliation: discharge medications reconciled and changed, per note/orders (see AVS). Plan of care communicated with patient Coding guidelines for this visit: Type of Medical Decision Making Wbzb-en-Ekdj Visit within 7 Days of discharge Fxgj-br-Cyxr Visit within 14 days of discharge Moderate Complexity [id number] High Complexity [id number] Here with his . Glipizide now 5 mg bid, for the past few days. Glucose varies; 86-200+; lowest 4 hrs after supper. AM readings occas checked; today 200 or so. Checks at random times. Home blood pressure has also been elevated, in the 150/80 range. Problem list and histories reviewed & adjusted, as indicated. Additional history: as documented Current Outpatient Prescriptions Medication Sig Dispense Refill ??? ACCU-CHEK FRANCISCO PLUS test strip USE TO TEST EVERY DAY DIRECTED 100 strip 9 ??? metFORMIN (GLUCOPHAGE) 1000 MG tablet TAKE 1 TABLET BY MOUTH TWICE DAILY 180 tablet 3 ??? glipiZIDE (GLUCOTROL) 5 MG tablet (Patient taking differently: Take 5 mg by mouth 2 times daily (before meals) ) 90 tablet 3 ??? lisinopril (PRINIVIL,ZESTRIL) 10 MG tablet Take 1 tablet (10 mg) by mouth daily 90 tablet 3 ??? atorvastatin (LIPITOR) 40 MG tablet Take 1 tablet (40 mg) by mouth daily 90 tablet 3 ??? cinnamon 500 MG CAPS Take 1 capsule by mouth daily ??? Calcium Carbonate-Vitamin D (CALCIUM 600 + D OR) Take 1 tablet by mouth 2 times daily (with meals) ??? Cholecalciferol (VITAMIN D) 1000 UNITS capsule Take 1 capsule by mouth daily. ??? vitamin B complex with vitamin C (VITAMIN B COMPLEX) TABS Take 1 tablet by mouth daily. ??? bicalutamide (CASODEX) 50 MG tablet Take 50 mg by mouth daily. ??? aspirin 81 MG tablet Take 1 tablet by mouth daily. ??? Multiple Vitamin (DAILY MULTIVITAMIN PO) Take 1 tablet by mouth daily ??? Co-Enzyme Q-10 10 MG CAPS Take 1 capsule by mouth daily Dose of capsule unknown. BP Readings from Last 3 Encounters: 07/21/16 138/78 07/14/16 146/87 07/12/16 140/125 Wt Readings from Last 3 Encounters: 07/21/16 210 lb (95.255 kg) 07/14/16 208 lb 15.9 oz (94.8 kg) 07/12/16 215 lb (97.523 kg) Problem list, Medication list, Allergies, and Medical/Social/Surgical histories reviewed in EPIC andupdated as appropriate. ROS: CONSTITUTIONAL:NEGATIVE for fever, chills, change in weight RESP:NEGATIVE for significant cough or SOB CV: NEGATIVE for chest pain, palpitations or peripheral edema OBJECTIVE: BP 138/78 mmHg Pulse 78 Temp(Src) 97.5 ??F (36.4 ??C) Resp 20 Ht 6' (1.829 m) Wt 210 lb (95.255 kg) BMI 28.47 kg/m2 SpO2 97% Body mass index is 28.47 kg/(m^2). GENERAL APPEARANCE: healthy, alert and no distress CV: regular rates and rhythm and normal S1 S2, no S3 or S4 Diagnostic test results: Results for orders placed or performed during the hospital encounter of 07/12/16 X-ray Chest 2 vws* Narrative XR CHEST 2 VW 07/14/2016 7:47 AM HISTORY: Lead positioning. Impression IMPRESSION: Cardiac device with tips in the right atrium and right ventricle. No pneumothorax. Blunting right costophrenic angle by fluid or thickened pleura. Infiltrate or atelectasis right lung base. YANCY ANDERSEN MD Glucose by meter Result Value Ref Range Glucose 222 (H) 70 - 99 mg/dL Glucose by meter Result Value Ref Range Glucose 244 (H) 70 - 99 mg/dL Glucose by meter Result Value Ref Range Glucose 152 (H) 70 - 99 mg/dL Basic metabolic panel Result Value Ref Range Sodium 138 133 - 144 mmol/L Potassium 4.9 3.4 - 5.3 mmol/L Chloride 105 94 - 109 mmol/L Carbon Dioxide 25 20 - 32 mmol/L Anion Gap 8 3 - 14 mmol/L Glucose 197 (H) 70 - 99 mg/dL Urea Nitrogen 29 7 - 30 mg/dL Creatinine 1.23 0.66 - 1.25 mg/dL GFR Estimate 57 (L) >60 mL/min/1.7m2 GFR Estimate If Black 69 >60 mL/min/1.7m2 Calcium 8.0 (L) 8.5 - 10.1 mg/dL Hemoglobin A1c Result Value Ref Range Hemoglobin A1C 7.8 (H) 4.3 - 6.0 % Glucose by meter Result Value Ref Range Glucose 184 (H) 70 - 99 mg/dL CBC with platelets Result Value Ref Range WBC 9.2 4.0 - 11.0 10e9/L RBC Count 4.01 (L) 4.4 - 5.9 10e12/L Hemoglobin 11.9 (L) 13.3 - 17.7 g/dL Hematocrit 33.9 (L) 40.0 - 53.0 % MCV 85 78 - 100 fl MCH 29.7 26.5 - 33.0 pg MCHC 35.1 31.5 - 36.5 g/dL RDW 13.1 10.0 - 15.0 % Platelet Count 228 150 - 450 10e9/L INR Result Value Ref Range INR 1.10 0.86 - 1.14 Glucose by meter Result Value Ref Range Glucose 230 (H) 70 - 99 mg/dL Glucose by meter Result Value Ref Range Glucose 208 (H) 70 - 99 mg/dL Glucose by meter Result Value Ref Range Glucose 220 (H) 70 - 99 mg/dL Glucose by meter Result Value Ref Range Glucose 155 (H) 70 - 99 mg/dL Glucose by meter Result Value Ref Range Glucose 199 (H) 70 - 99 mg/dL Glucose by meter Result Value Ref Range Glucose 201 (H) 70 - 99 mg/dL EKG 12-lead, tracing only Result Value Ref Range Interpretation ECG Click View Image link to view waveform and result EP Perm pacer dble lead Narrative PROCEDURES PERFORMED: 1. Conscious sedation. 2. Cardiac fluoroscopy. 3. Dual-chamber permanent pacemaker implantation. 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 HPI: 81-year-old male with a history of diabetes, hypertension and dyslipidemia, who presents with fatigue and was found to have symptomatic bradycardia associated with third-degree heart block. No reversible causes were identified and he was referred for permanent pacemaker implantation. Risks and benefits of the procedure were reviewed including but not limited to arrhythmia, pain, infection, bleeding, skin damage from ionized radiation, kidney damage or allergic reactions to conscious dye, injury to the neighboring vascular structures, need for emergent cardiopulmonary resuscitation, heart attack, stroke or . Alternatives were discussed including doing nothing. All questions were answered to the patient's satisfaction. Informed consent was obtained and patient wished to proceed. SEDATION PROCEDURE: Sedatives were given by the nurse staff under my direct supervision. The patient received a total of 3 mg of Versed and 100 mcg of Fentanyl during procedure. Total sedation time was 47 min. Heart rate, blood pressure, oxygen saturation and patient responses were monitored throughout the procedure with the RN assistance. DESCRIPTION OF PROCEDURE: After written informed consent was obtained, patient was brought to the EP lab. An intravenous infusion of prophylactic antibiotic was begun. The chest was sterilely prepped from the level of iliac crest to level of the chin with antibiotic soap and disinfectant, draped appropriately. Following infiltration with 1% lidocaine, an incision was made parallel to and 1 cm beneath the clavicle and extended across the deltopectoral groove. Using blunt dissection, the excision was extended down the anterior pectoral fascia. Using blunt and sharp dissection, a pocket was developed parallel to the fascia and extended inferiorly. Two pocket punctures via fluoroscopy guidance and modified Seldinger technique was used to attain access into the left subclavian vein. A 7 English sheath was inserted over the wire. The right ventricular lead was advanced under fluoroscopy and a secure location found. The lead was fixated. Stimulation and sensing thresholds were found to be satisfactory. No diaphragmatic stimulation was noticed with high output pacing. The lead was sutured to the underlying pectoral muscle with interrupted 0 silk suture over a plastic collar. A 7 English sheath was inserted over the wire. The right atrial lead was advanced under fluoroscopy and secure location found. The lead was fixated. Stimulation and sensing thresholds were found to be satisfactory. No diaphragmatic stimulation was noted with high output pacing. The lead was sutured to the underlying pectoral muscle with interrupted 0 silk suture over a plastic collar. After irrigation with antibiotic solution, the pocket was inspected, no bleeding was seen. The generator was connected to the leads and inserted into the pocket. The wound was closed with two layers of subcutaneous sutures. Fluoroscopy time 0.7 minutes. PACEMAKER GENERATOR: Medtronic, model A2DR01, serial #[id number]. LEAD INFORMATION: Right atrial lead: Medtronic, model 5076/54, serial #[id number]. Right ventricular lead: Medtronic, model 5076/52, serial #[id number]. MEASURED DATA: Right atrial lead: Sensing 2.8 mV, threshold 0.8 volt at 0.5 msec, impedance 503 ohms. Right ventricular lead: Sensing 4.4 mV, threshold 0.6 volt at 0.5 msec, impedance 1329 ohms. Impression IMPRESSION: 1. Successful dual chamber pacemaker implantation in left infraclavicular region above the pectoral fascia. 2. Bradycardia pacing set to DDDR 60-130. RECOMMENDATIONS: 1. Avoid vascular access to the left jugular and subclavian veins. 2. Keep wound clean, dry and covered for seven days. 3. PA and lateral chest x-ray to rule out dislodgement. 4. Device interrogation prior to discharge. 5. Left arm in sling overnight and then off in the morning. 6. May start oral medications. Avoid IV or subcutaneous heparin for at least two weeks. If heparin must be used, please contract the procedural team to discuss. 7. Wound care as follows: a) Do not get incision wet for three days. b) Leave the Steri-Strips in place, allow to come off naturally. If they do not come off in two weeks, you may remove them. c) Check incision daily and call if they notice one of the following: redness, drainage (pus or blood), swelling, warmth or if you develop fever. If you have questions regarding wound care, please contact our office. TEENA RENO MD Echocardiogram Complete Narrative [id number] [facility]19 [id number]^ASHLY^MITCH^[facility] Echocardiography Laboratory [address] [place] [address] Name: JANETH SEE : 1935 Study Date: 07/13/2016 03:28 PM Age: 81 yrs Gender: Male Patient Location: [facility] Reason For Study: Complete AV block Ordering Physician: MITCH LIMON Referring Physician: Christian Steiner Performed By: Leslye Dale RDCS BSA: 2.2 m2 Height: 72 in Weight: 217 lb HR: 67 BP: 132/71 mmHg __ Procedure Complete Portable Echo Adult. __ Interpretation Summary Appears to be an A sensed V paced rhythm Borderline aortic root dilatation. The ascending aorta is Mildly dilated. The right ventricular systolic pressure is approximated at 38mmHg plus the right atrial pressure. The IVC is normal in size and reactivity with respiration, suggesting normal central venous pressure. The left ventricle is borderline dilated. There is no comparison study available. __ Left Ventricle The left ventricle is borderline dilated. There is normal left ventricular wall thickness. The visual ejection fraction is estimated at 55-60%. Grade II or moderate diastolic dysfunction. Normal left ventricular wall motion. Right Ventricle The right ventricle is normal in structure, function and size. There is a catheter/pacemaker lead seen in the right ventricle. Atria Normal left atrial size. Right atrial size is normal. Intact atrial septum. Mitral Valve The mitral valve is normal in structure and function. There is mild (1+) mitral regurgitation. Tricuspid Valve The tricuspid valve is normal in structure and function. There is trace to mild tricuspid regurgitation. The right ventricular systolic pressure is approximated at 38mmHg plus the right atrial pressure. Aortic Valve The aortic valve is normal in structure and function. Pulmonic Valve The pulmonic valve is normal in structure and function. There is trace pulmonic valvular regurgitation. Vessels Borderline aortic root dilatation. The ascending aorta is Mildly dilated. The IVC is normal in size and reactivity with respiration, suggesting normal central venous pressure. Pericardium The pericardium appears normal. Rhythm Appears to be an A sensed V paced rhythm. __ MMode/2D Measurements & Calculations IVSd: 1.0 cm LVIDd: 5.8 cm LVPWd: 1.1 cm EDV(Teich): 165.5 ml LV mass(C)d: 247.6 grams Ao root diam: 3.7 cm asc Aorta Diam: 3.9 cm LA Volume (BP): 69.5 ml LA Volume Index (BP): 31.4 ml/m2 Doppler Measurements & Calculations MV E max benoit: 62.7 cm/sec MV A max benoit: 40.4 cm/sec MV E/A: 1.6 MV dec time: 0.34 sec TR max benoit: 308.4 cm/sec TR max P.0 mmHg Lateral E/e': 8.9 Medial E/e': 11.3 __ Report approved by: Jazmine Ventura 07/14/2016 02:17 PM ASSESSMENT/PLAN: ICD-10-CM 1. Type 2 diabetes mellitus without complication, without long-term current use of insulin (H) E11.9 2. Essential hypertension with goal blood pressure less than 140/90 I10 We need more accurate diabetes assessment and better blood pressure control. Patient Instructions Let's do this: Try to check your glucose at various times; check either before a meal, or else 2 hours after a meal. Be sure to record the exact time, and whether this is before or after a meal. If youhave any low glucose readings, (under 75) ,then cut back the evening glipizide to 1/2 tablet or 2.5 mg per dose. Also, increase the lisinopril to 20 mg per day. Christian Steiner MD [facility] S CLASSIFIER documented in this encounter Nursing Notes Mya Salvador LPN - 07/21/2016 1:53 PM CST Chief Complaint Patient presents with ??? Hospital F/U Initial BP 138/78 mmHg Pulse 78 Temp(Src) 97.5 ??F (36.4 ??C) Resp 20 Ht 6' (1.829 m) Wt 210 lb (95.255 kg) BMI 28.47 kg/m2 SpO2 97% Estimated body mass index is 28.47 kg/(m^2) as calculated from the following: Height as of this encounter: 6' (1.829 m). Weight as of this encounter: 210 lb (95.255 kg). Medication Reconciliation: complete Mya Salvador LPN S CLASSIFIER documented in this encounter Plan of Treatment Upcoming Encounters Date Type Specialty Care Team Description 06/18/2022 Ancillary Procedure Cardiology Abdi Bailey MD [address] [place], [place] [id number] (Wo rk) documented as of this encounter Visit Diagnoses Diagnosis Type 2 diabetes mellitus without complic ation, without long-term current use of insulin (H) - Primary Essential hypertension with goal blood p ressure less than 140/90 documented in this encounter Care Teams Foam Cutting Supervisor Relationship Specialty Start Date End Date Christian Steiner MD PCP - General Internal Medicine 08/30/12 Christian Steiner MD PCP - Assigned PCP 08/11/1208/16/18 Christian Steiner MD Assigned PCP 08/11/12 02/22/21 documented as of this encounter
--- OUTSIDE RECORDS SUMMARY | 2022-04-27 07:38 | XMS_ITS | Encounter Summary ---
:1935 Author Organization [facility] Address [address] [place] [id number] Care Team Providers Name Role Phone Christian Steiner MD Primary Care Provider Unavailable Christian Steiner MD Unavailable Unavailable Christian Steiner MD Unavailable Unavailable Reason for Visit Reason Comments Pacemaker Check Encounter Details Date Type Department Care Team Description 07/21/2016 Allied Health/Nurse [facility] Heart Pacemaker Check Visit Clinic [address] [place] [address] Social History Tobacco Use Types Packs/Day Years Used Date Smoking Tobacco: Former Cigarettes Quit : 02/29/1980 Smokeless Tobacco: Never Alcohol Use Standard Drinks/Week Comments Yes 0 (1 standard drink = 0.6 oz pure alcoho l) occasionally Sex Assigned at Date Recorded Not on file documented as of this encounter Progress Notes Rita Rubio, RN, RN - 07/21/2016 10:30 AM CST Medtronic Advisa MRI 7-10 day Post Pacemaker Device Check AP: 17 % GAS UTILITY WORKER: 99 % Mode: DDD Underlying Rhythm: SR with CHB with vent rate < 30 Heart Rate: Adequate variation per histogram. He is active 3.3 hours per day. Sensing: stabl3 Pacing Threshold: stable Impedance: stable Battery Status: initializing Incision: clean,dry and intact: steri strips removed. Atrial Arrhythmia: none Ventricular Arrhythmia: none Setting Change: none Care Plan: f/u 6 weeks post implant check. MJBrn CLING ASSISTANT documented in this encounter Plan of Treatment Upcoming Encounters Date Type Specialty Care Team Description 06/18/2022 Ancillary Procedure Cardiology Abdi Bailey MD [address] [place] [id number] (Wo rk) documented as of this encounter Procedures Procedure Name Priority Date/Time Associated Diagnosis Comme nts HC PM DEVICE PROGRAMMING EVAL, Routine 07/21/2016 Cardiac pa cemaker in situ DUAL LEAD PACER documented in this encounter Results PM DEVICE PROGRAMMING EVAL, DUAL LEAD PACER ([id number]) (07/21/2016) Narrative This result has an attachment that is no t available. Ke Hernandes MD PROCEDURES documented in this encounter Visit Diagnoses Diagnosis Cardiac pacemaker in situ - Primary documented in this encounter Care Teams Cannon Pinion Adjuster Relationship Specialty Start Date End Date Christian Steiner MD PCP - General Internal Medicine 08/30/12 Christian Steiner MD PCP - Assigned PCP 08/11/1208/16/18 Christian Steiner MD Assigned PCP 08/11/12 02/22/21 documented as of this encounter
--- OUTSIDE RECORDS SUMMARY | 2022-04-27 07:38 | XMS_ITS | Encounter Summary ---
:1935 Author Organization [place] Address [facility] [place] [address] Care Team Providers Name Role Phone Christian Steiner MD Primary Care Provider Unavailable Christian Steiner MD Unavailable Unavailable Christian Steiner MD Unavailable Unavailable Reason for Visit Reason Comments Pacemaker Check Encounter Details Date Type Department Care Team Description 09/02/2016 Allied Health/Nurse [facility] Heart Pacemaker Check Visit Clinic [address] [place] [address] Social History Tobacco Use Types Packs/Day Years Used Date Smoking Tobacco: Former Cigarettes Quit : 02/29/1980 Smokeless Tobacco: Never Alcohol Use Standard Drinks/Week Comments Yes 0 (1 standard drink = 0.6 oz pure alcoho l) occasionally Sex Assigned at Date Recorded Not on file documented as of this encounter Progress Notes Rita Rubio, RN, RN - 09/02/2016 9:30 AM CDT Medtronic Advisa MRI Pacemaker Device Check AP: 16 % PINEAPPLE PLANTATION MANAGER: 100 % Mode: DDD Underlying Rhythm: CHB with vent rate < 30 Heart Rate: Adequate variation per histogram. He is active 6.8 hours per day. Sensing: stable Pacing Threshold: stable Impedance: stable Battery Status: 12 years Atrial Arrhythmia: none Ventricular Arrhythmia: none Setting Change: none Care Plan: f/u 3months remote PPM check. MJBrn documented in this encounter Plan of Treatment Upcoming Encounters Date Type Specialty Care Team Description 06/18/2022 Ancillary Procedure Cardiology Abdi Bailey MD [address] [place] [id number] (Wo rk) documented as of this encounter Procedures Procedure Name Priority Date/Time Associated Diagnosis Comme nts HC PM DEVICE PROGRAMMING EVAL, Routine 09/02/2016 Cardiac pa cemaker in situ DUAL LEAD PACER documented in this encounter Results PM DEVICE PROGRAMMING EVAL, DUAL LEAD PACER ([id number]) (09/02/2016) Narrative This result has an attachment that is no t available. Tonya Sneed MD PROCEDURES documented in this encounter Visit Diagnoses Diagnosis Cardiac pacemaker in situ - Primary documented in this encounter Care Teams Water Treatment Plant Mechanic Relationship Specialty Start Date End Date Christian Steiner MD PCP - General Internal Medicine 08/30/12 Christian Steiner MD PCP - Assigned PCP 08/11/1208/16/18 Christian Steiner MD Assigned PCP 08/11/12 02/22/21 documented as of this encounter
--- OUTSIDE RECORDS SUMMARY | 2022-04-27 07:38 | XMS_ITS | Encounter Summary ---
:1935 Author Organization [place] Address [facility]0 [facility] [place] [address] Care Team Providers Name Role Phone Christian Steiner MD Primary Care Provider Unavailable Ostlund, Christian Arellano MD Unavailable Unavailable OstlundChristian MD Unavailable Unavailable Reason for Visit Reason Onset Date Comments Refill Request 12/17/2016 casodex Encounter Details Date Type Department Care Team Description 12/17/2016 Telephone [facility] Good Refill Re [facility] Clinic [place] Jimenez MD (casodex) [address] [place] [address] [place] [address] [phone] Social History Tobacco Use Types Packs/Day Years Used Date Smoking Tobacco: Former Cigarettes Quit : 02/29/1980 Smokeless Tobacco: Never Alcohol Use Standard Drinks/Week Comments Yes 0 (1 standard drink = 0.6 oz pure alcoho l) occasionally Sex Assigned at Date Recorded Not on file documented as of this encounter Miscellaneous Notes Telephone Encounter - Fareed Nevarez CMA - 12/17/2016 2:23 PM CDT pts calling to refill his casodex. Pt last seen in august of 2016. i refilled the casodex 50mg #90 with 1 refill. Pt is due to see [facility] again in feb with a PSA. Ryan Nevarez CMA documented in this encounter Plan of Treatment Upcoming Encounters Date Type Specialty Care Team Description 06/18/2022 Ancillary Procedure Cardiology Abdi Bailey MD [address] [place] [id number] (Wo rk) documented as of this encounter Visit Diagnoses Diagnosis Prostate cancer (H) - Primary Malignant neoplasm of prostate documented in this encounter Care Teams Detail Manager Relationship Specialty Start Date End Date Christian Steiner MD PCP - General Internal Medicine 08/30/12 Christian Steiner MD PCP - Assigned PCP 08/11/1208/16/18 Christian Steiner MD Assigned PCP 08/11/12 02/22/21 documented as of this encounter
--- OUTSIDE RECORDS SUMMARY | 2022-04-27 07:38 | XMS_ITS | Encounter Summary ---
:1935 Author Organization [place] Address [facility] [place] [address] Care Team Providers Name Role Phone Christian Steiner MD Primary Care Provider Unavailable Christian Steiner MD Unavailable Unavailable Christian Steiner MD Unavailable Unavailable Encounter Details Date Type Department Care Team Description 10/08/2016 Medical Correspondence [facility] HIM Scan, [facility] Non-Provider [facility]M Health Information Management-[facility] [address] [place] [address] Social History Tobacco Use Types Packs/Day Years [...] Ancillary Procedure Cardiology Abdi Bailey MD [address] [facility] [address] [place], [place] [id number] (Wo rk) documented as of this encounter Visit Diagnoses Not on filedocumented in this encounter Care Teams Manager Clinical Applications Relationship Specialty Start Date End Date Christian Steiner MD PCP - General Internal Medicine 08/30/12 Christian Steiner MD PCP - Assigned PCP 08/11/1208/16/18 Christian Steiner MD Assigned PCP 08/11/12 02/22/21 documented as of this encounter
--- OUTSIDE RECORDS SUMMARY | 2022-04-27 07:38 | XMS_ITS | Encounter Summary ---
:1935 Author Organization [place] Address [address] [place] [id number] Care Team Providers Name Role Phone Christian Steiner MD Primary Care Provider Unavailable Christian Steiner MD Unavailable Unavailable Christian Steiner MD Unavailable Unavailable Reason for Visit Reason Comments Medication Refill glipiZIDE (GLUCOTROL) 5 MG t ablet Encounter Details Date Type Department Care Team Description 02/21/2017 Refill [facility] Christian Steiner, Medication Refill [facility] Reagan aguilar MD (glipiZIDE (GLUCOTROL) 5 [address] [facility] [address] tablet) [address] [place] [address] Social History Tobacco Use Types Packs/Day Years Used Date Smoking Tobacco: Former Cigarettes Quit : 02/29/1980 Smokeless Tobacco: Never Alcohol Use Standard Drinks/Week Comments Yes 0 (1 standard drink = 0.6 oz pure alcoho l) occasionally Sex Assigned at Date Recorded Not on file documented as of this encounter Miscellaneous Notes Telephone Encounter - Aishwarya Nash RN - 02/23/2017 8:47 AM CDT Call made to patient- he is now just taking one tablet daily. Prescription approved [place] [facility] Refill Protocol. Telephone Encounter - Christian Steiner MD - 02/23/2017 8:43 AM CDT What is his current dose? Please call the patient and find out. Telephone Encounter - Aishwarya Nash RN - 02/23/2017 8:09 AM CDT Routing refill request to provider for review/approval because: Med list says patient is taking Glucotrol 5mg BID Telephone Encounter - Karen Phipps - 02/22/2017 4:22 PM CDT glipiZIDE (GLUCOTROL) 5 MG tablet Last Written Prescription Date: 03/17/16 Last Fill Quantity: 90, # refills: 3 Last Office Visit [facility] or [facility] prescribing provider: 07/21/16 BP Readings from Last 3 Encounters: 07/21/16 138/78 07/14/16 146/87 07/12/16 (!) 140/125 Lab Results Component Value Date MICROL 7 07/23/2015 Lab Results Component Value Date UMALCR 7.62 07/23/2015 Creatinine Date Value Ref Range Status 07/13/2016 1.23 0.66 - 1.25 mg/dL Final ] GFR Estimate Date Value Ref Range Status 07/13/2016 57 (L) >60 mL/min/1.7m2 Final Comment: Non GFR Calc 07/12/2016 57 (L) >60 mL/min/1.7m2 Final Comment: Non GFR Calc 03/17/2016 62 >60 mL/min/1.7m2 Final GFR Estimate If Black Date Value Ref Range Status 07/13/2016 69 >60 mL/min/1.7m2 Final Comment: GFR Calc 07/12/2016 69 >60 mL/min/1.7m2 Final Comment: GFR Calc 03/17/2016 75 >60 mL/min/1.7m2 Final Lab Results Component Value Date CHOL 156 07/23/2015 Lab Results Component Value Date HDL 50 07/23/2015 Lab Results Component Value Date LDL 80 03/17/2016 LDL 92 07/23/2015 Lab Results Component Value Date TRIG 69 07/23/2015 Lab Results Component Value Date CHOLHDLRATIO 3.0 03/21/2014 Lab Results Component Value Date AST 20 03/17/2016 Lab Results Component Value Date ALT 26 03/17/2016 Lab Results Component Value Date A1C 7.8 07/13/2016 A1C 7.3 03/17/2016 A1C 7.2 07/23/2015 A1C 7.3 01/30/2015 A1C 6.7 03/21/2014 Potassium Date Value Ref Range Status 07/13/2016 4.9 3.4 - 5.3 mmol/L Final documented in this encounter Plan of Treatment Upcoming Encounters Date Type Specialty Care Team Description 06/18/2022 Ancillary Procedure Cardiology Abdi Bailey MD [address] [place] [id number] (Wo rk) documented as of this encounter Visit Diagnoses Diagnosis Type 2 diabetes mellitus without complic ation, without long-term current use of insulin (H) documented in this encounter Care Teams Associate Professor Of Art History Relationship Specialty Start Date End Date Christian Steiner MD PCP - General Internal Medicine 08/30/12 Christian Steiner MD PCP - Assigned PCP 08/11/1208/16/18 Christian Steiner MD Assigned PCP 08/11/12 02/22/21 documented as of this encounter
--- OUTSIDE RECORDS SUMMARY | 2022-04-27 07:38 | XMS_ITS | Encounter Summary ---
:1935 Author Organization [place] Address [address] [place] [address] Care Team Providers Name Role Phone Christian Steiner MD Primary Care Provider Unavailable Christian Steiner MD Unavailable Unavailable Christian Steiner MD Unavailable Unavailable Reason for Visit Reason Comments PSA RESULTS in epic Encounter Details Date Type Department Care Team Description 09/08/2016 Office Visit [facility] Janeth Good Prostate cancer (H) [facility] MD Tony (Primary Dx) [address] [place], [place] [address] [place] [address] [phone] (Work) [phone] Social History Tobacco Use Types Packs/Day Years [...] Taken Comments Blood Pressure - - Pulse 86 09/08/2016 12:59 PM CDT Temperature - - Respiratory Rate - - Oxygen Saturation 97% 09/08/2016 12:59 PM CDT Inhaled Oxygen Concentration - - Weight 97.5 kg (215 lb) 09/08/2016 12:59 PM CDT Height 182.9 cm (6') 09/08/2016 12:59 PM CDT Body Mass Index 29.16 09/08/2016 12:59 PM CDT documented in this encounter Progress Notes Janeth Good MD - 09/08/2016 1:00 PM CDT History: Great pleasure to see this very pleasant 81-year-old gentleman in follow-up consultation today. 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 The patient was restarted on androgen ablation in 2012 because of a subsequent rise in PSA with negative staging studies and was also treated with Casodex. His last Eligard injection was 1 yearago, and at his last visit 6 months ago we decided to withhold Eligard, and continue with Casodex alone. His PSA today is < 0.04. He has no other major urologic complaints. 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 Otherwise is in good condition Past Medical History: Diagnosis Date ??? Diabetes mellitus (H) Type II dx approx. 2003 ? High cholesterol ??? Hypertension ??? Malignant neoplasm of prostate (H) 2002 Prostate cancer; radioactive seeds ; Dr. Mckee; casodex in 2012 Social History Social History ??? Marital status: Spouse name: Rita Vargas ??? Number of children: 3 ??? 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 Smoking [...] RH OR ??? GENITOURINARY SURGERY prostate ??? PROSTATE SURGERY Family History Problem Relation Age of Onset ??? DIABETES Son type 2 DM age 50 Current Outpatient Prescriptions: ??? lisinopril (PRINIVIL/ZESTRIL) 20 MG tablet, Take 1 tablet (20 mg) by mouth daily, Disp: 90 tablet, Rfl: 3 ??? ACCU-CHEK FRANCISCO PLUS test strip, USE TO TEST EVERY DAY DIRECTED, Disp: 100 strip, Rfl: 9 ??? metFORMIN (GLUCOPHAGE) 1000 MG tablet, TAKE 1 TABLET BY MOUTH TWICE DAILY, Disp: 180 tablet, Rfl: 3 ??? glipiZIDE (GLUCOTROL) 5 MG tablet, Take 1 tablet (5 mg) by mouth daily (Patient taking differently: Take 5 mg by mouth 2 times daily (before meals) ), Disp: 90 tablet, Rfl: 3 ??? atorvastatin (LIPITOR) 40 MG tablet, Take 1 tablet (40 mg) by mouth daily, Disp: 90 tablet, Rfl:3 ??? cinnamon 500 MG CAPS, Take 1 [...] Rfl: ??? bicalutamide (CASODEX) 50 MG tablet, Take 50 mg by mouth daily., Disp: , Rfl: ??? [...] for pertinentpositives noted in my HPI. Examination: Pulse 86 Ht 1.829 m (6') Wt 97.5 kg (215 lb) SpO2 97% BMI 29.16 kg/m2 General Impression: Very pleasant gentleman in no acute distress, well-oriented to time place and person Mental Status: Normal. HEENT. There is no evidence of jaundice and mucous membranes are normal Skin: Skin is normal to examination Respiratory System: Respiratory cycle is normal Lymph Nodes: Not examined Back/Flank Tenderness: Not examined Cardiovascular System: The pacemaker can be palpated just below the left clavicle Abdominal Examination: Not examined Extremities: There is no significant peripheral edema Genitial: Not examined Rectal Examination: Good sphincter tone, normal perianal sensation. Smooth rectal mucosa without hemorrhoids or fissures. Smooth soft and small prostate without evidence of tenderness, bogginess or nodules. Seminal vesicles. Not palpable Neurologic System: There are no focal abnormal clinical neurological signs in the central peripheralnervous systems Impression: He continued to exhibit excellent biochemical control of what was in fact high-grade relatively high stage prostate cancer first diagnosed in 2001, treated at that time by combination radiation therapy with 3 years of hormonal ablation. We had restarted hormone treatment in 2012 but now, for the last year we have discontinue the Eligard and his continued treatment with Casodex alone. I'm very satisfied with his clinical progress with the examination today being very satisfactory. We should continue the current treatment plan although I have advised the patient that should there be evidence of a PSA rising in the future we will certainly need to consider restarting Eligard once again. I carefully explained the entire situation with the patient in detail. I answered all his questions Plan: 6 months for PSA, and clinical examination Time: 20 minutes. Greater than 50% was spent in discussion and consultation This dictation was performed with voice recognition software and may contain errors, omissions and inadvertent word substitution. documented in this encounter Nursing Notes Fareed Nevarez CMA - 09/08/2016 1:00 PM CDT Pt denies voiding problems. Just here for psa results. Ryan Nevarez CMA documented in this encounter Miscellaneous Notes Addendum Note - Janeth Good MD - 09/08/2016 2:00 PM CDT Addended by: JANETH GOOD on: 09/08/2016 02:00 PM Modules accepted: Orders documented in this encounter Plan of Treatment Upcoming Encounters Date Type Specialty Care Team Description 06/18/2022 Ancillary Procedure Cardiology Abdi Bailey MD [address] [place] [id number] (Wo rk) documented as of this encounter Visit Diagnoses Diagnosis Prostate cancer (H) - Primary Malignant neoplasm of prostate documented in this encounter Care Teams Microbiology Quality Control Technician Relationship Specialty Start Date End Date Christian Steiner MD PCP - General Internal Medicine 08/30/12 Christian Steiner MD PCP - Assigned PCP 08/11/1208/16/18 Christian Steiner MD Assigned PCP 08/11/12 02/22/21 documented as of this encounter
--- OUTSIDE RECORDS SUMMARY | 2022-04-27 07:38 | XMS_ITS | Encounter Summary ---
:1935 Author Organization [facility] Address [address] [place] [address] Care Team Providers Name Role Phone Christian Steiner MD Primary Care Provider Unavailable Christian Steiner MD Unavailable Unavailable Christian Steiner MD Unavailable Unavailable Reason for Visit Reason Comments Shortness of Breath heart rate 30's per pt. Encounter Details Date Type Department Care Team Description 07/12/[address] [facility] [address] t DO block (H) [address] [facility] [place] [address] [address] [phone] [place] [address] (Wo rk) Social History Tobacco Use Types Packs/Day Years Used Date Smoking Tobacco: Former Cigarettes Quit : 02/29/1980 Smokeless Tobacco: Never Alcohol Use Standard Drinks/Week Comments Yes 0 (1 standard drink = 0.6 oz pure alcoho l) occasionally Sex Assigned at Date Recorded Not on file documented as of this encounter Last Filed Vital Signs Vital Sign Reading Time Taken Comments Blood Pressure 140/125 07/12/2016 12:15 PM FINNISH RUBBER Pulse 34 07/12/2016 9:55 AM FINNISH RUBBER Temperature 36.4 ??C (97.5 ??F) 07/12/2016 9:46 AM FINNISH RUBBER Respiratory Rate 16 07/12/2016 9:46 AM FINNISH RUBBER Oxygen Saturation 97% 07/12/2016 12:15 PM FINNISH RUBBER Inhaled Oxygen Concentration - - Weight 97.5 kg (215 lb) 07/12/2016 9:46 AM FINNISH RUBBER Height 182.9 cm (6') 07/12/2016 9:46 AM FINNISH RUBBER Body Mass Index 29.16 07/12/2016 9:46 AM FINNISH RUBBER documented in this encounter Medications at Time of Discharge Medication Sig Dispensed Refills Start Date End Date aspirin 81 MG tablet Take 1 tablet by 0 mouth daily Cholecalciferol (VITAMIN Take 2,000 Units 0 D) 1000 UNITS capsule by mouth daily cinnamon 500 MG CAPS Take 1 capsule by 0 mouth daily Co-Enzyme Q-10 10 MG CAPS Take 1 capsule by 0 mouth daily Dose of capsule unknown. Multiple Vitamin (DAILY Take 1 tablet by 0 MULTIVITAMIN PO) mouth daily vitamin B complex with Take 1 tablet by 0 vitamin C (STRESS TAB) mouth daily. tablet atorvastatin (LIPITOR) 40 Take 1 tablet (40 90 tablet 3 09/201505/12/2017 MG tabletIndications: mg) by mouth daily Hyperlipidemia LDL goal <100 bicalutamide (CASODEX) 50 Take 50 mg by 0 12/17/2016 MG tablet mouth daily. Calcium Carbonate-Vitamin Take 1 tablet by 0 04/10/2020 D (CALCIUM 600 + D OR) mouth 2 times daily (with meals) glipiZIDE (GLUCOTROL) 5 MG Take 1 tablet (5 90 tablet 3 09/201502/21/2017 tabletIndications: Type 2 mg) by mouth daily diabetes mellitus without complication, without long-term current use of insulin (H) lisinopril Take 1 tablet (10 90 tablet 3 03/17/2016 017 (PRINIVIL,ZESTRIL) 10 MG mg) by mouth daily tabletIndications: Essential hypertension with goal blood pressure less than 140/90 metFORMIN (GLUCOPHAGE) TAKE 1 TABLET BY 180 tablet 3 016 04/19/2017 1000 MG tabletIndications: MOUTH TWICE DAILY Type 2 diabetes mellitus without complication, without long-term current use of insulin (H) ACCU-CHEK LAKESHA PLUS test TEST EVERY DAY 100 each 1 07/16/2016 stripIndications: Type 2 DIRECTED diabetes mellitus without complication (H) documented as of this encounter ED Notes Negrito Alan RN - 07/12/2016 12:28 PM CST Transferred to [facility]. vss except HR which is in the 30's. Asymptomatic. ISH RUBBER Melissa Augustine RN - 07/12/2016 9:41 AM CST Pt with Shortness of breath and heart rate 30's per pt. Aren Menard, - 07/12/2016 9:40 AM CST History Chief Complaint: Fatigue The history is provided by the patient and the spouse. Humberto Siddiqui is a 81 year old male with a history of prostate cancer, HTN, hyperlipidemia, and typeII diabetes who presents with fatigue. The patient says that at-home measurements of his pulse rate lately have been in the 30s, but his blood pressures have been normal. He has felt fatigued lately, with nausea 2 days ago after standing up quickly. His reports that the patient is short of breath, which was originally their chief complaint, however the patient denies any shortness of breath, chest pain or any other pain, and denies dyspnea with exertion as he has had no trouble climbing stairs or performing other tasks. Here he is alert, oriented, with no subjective symptoms to report. He endorses taking all of his medications as instructed/prescribed. Allergies: No known drug allergies. Medications: Metformin (Glucophage) 1000 MG tablet Glipizide (Glucotrol) 5 MG tablet Lisinopril (Prinivil, Zestril) 10 MG tablet Atorvastatin (Lipitor) 40 MG tablet Accu-Chek Lakesha Plus test strip Cinnamon 500 MG CAPS Calcium Carbonate-Vitamin D (Calcium 600 + D OR) Cholecalciferol (Vitamin D) 1000 Units capsule Vitamin B Complex With Vitamin C (Vitamin B Complex) TABS Bicalutamide (Casodex) 50 MG tablet Aspirin 81 MG tablet Multiple Vitamin (Daily Multivitamin PO) Co-Enzyme Q-10 10 MG Caps Past Medical History: History of colonic polyps Type 2 diabetes mellitus without complication H/O tobacco use, presenting hazards to health Hypertension Hyperlipidemia Preventive measure Malignant neoplasm of prostate Diabetes mellitus High cholesterol Malignant neoplasm of prostate Hypertension Past Surgical History: Excise Mass, back GI surgery - prostate Colonoscopy Family History: Son - Type II Diabetes Social History: Marital Status: Presents to the ED w/ spouse Tobacco Use: Former Smoker - Quit 1979 Alcohol Use: Occasionally PCP: Christian Steiner Review of Systems Constitutional: Positive for fatigue. Negative for fever, chills and diaphoresis. Respiratory: Negative for cough, chest tightness and shortness of breath. Cardiovascular: Negative for chest pain, palpitations and leg swelling. Gastrointestinal: Positive for nausea. Negative for vomiting, abdominal pain, diarrhea and constipation. Musculoskeletal: Negative for back pain and neck pain. Skin: Negative for rash. Neurological: Negative for dizziness, syncope, weakness, light-headedness, numbness and headaches. Psychiatric/Behavioral: Negative for confusion and decreased concentration. All other systems reviewed and are negative. Physical Exam Patient Vitals for the past 24 hrs: BP Temp Temp src Pulse Heart Rate Resp SpO2 Height Weight 07/12/16 1200 126/60 mmHg - - - 31 - 91 % - - 07/12/16 1145 (!) 131/94 mmHg - - - - - 97 % - - 07/12/16 1130 124/76 mmHg - - - - - 97 % - - 07/12/16 1115 129/68 mmHg - - - - - 97 % - - 07/12/16 1100 131/67 mmHg - - - - - 97 % - - 07/12/16 1045 117/62 mmHg - - - - - 98 % - - 07/12/16 1034 - - - - - - 97 % - - 07/12/16 1033 - - - - - - 98 % - - 07/12/16 1032 - - - - - - 98 % - - 07/12/16 1031 - - - - - - 96 % - - 07/12/16 1030 118/71 mmHg - - - - - 99 % - - 07/12/16 1020 - - - - - - 98 % - - 07/12/16 1019 - - - - - - 97 % - - 07/12/16 1018 - - - - - - 98 % - - 07/12/16 1017 - - - - - - 97 % - - 07/12/16 1015 132/66 mmHg - - - - - 99 % - - 07/12/16 1012 - - - - - - 99 % - - 07/12/16 1011 - - - - - - 99 % - - 07/12/16 1010 - - - - - - 98 % - - 07/12/16 1009 - - - - - - 97 % - - 07/12/16 1008 - - - - - - 100 % - - 07/12/16 1007 - - - - - - 100 % - - 07/12/16 1006 - - - - - - 99 % - - 07/12/16 0957 - - - - - - 99 % - - 07/12/16 0955 - - - (!) 34 - - - - - 07/12/16 0954 - - - - - - 99 % - - 07/12/16 0951 - - - - - - 99 % - - 07/12/16 0948 - - - - - - 100 % - - 07/12/16 0946 129/66 mmHg 97.5 ??F (36.4 ??C) Oral (!) 39 - 16 100 % 1.829 m (6') 97.523 kg (215 lb) 07/12/16 0945 - - - - 38 - 99 % - - 07/12/16 0942 129/66 mmHg - - - - - - - - Physical Exam Constitutional: Patient appears well-developed and well-nourished. There is no acute distress. Head: No external signs of trauma noted. Neck: No JVD noted Eyes: Pupils are equal, round, and reactive to light. No subconjunctival pallor Cardiovascular: Bradycardic rate, regular rhythm and normal heart sounds. Exam reveals no gallop andno friction rub. No murmur heard. Normal peripheral pulses. Pulmonary/Chest: Effort normal and breath sounds normal. No respiratory distress. Patient has no wheezes. Patient has no rales. Abdominal: Soft. There is no tenderness. Neurological: Patient is alert and oriented to person, place, and time. No focal neurological deficits appreciated. Skin: Skin is warm and dry. There is no diaphoresis noted. Emergency Department Course ECG: Performed at 0940 / Indication: Fatigue Vent. Rate 40 bpm. [place] interval 200 ms. QRS duration 134 ms. QT/QTc 588/479 ms. P-R-T axis 74 0 12. Undetermined Rhythm Nonspecific intraventricular block Abnormal ECG. Read @ [address] Guidry. Imaging: Radiographic findings were communicated with the patient who voiced understanding of the findings. XR Chest 2 Views Final Result IMPRESSION: Negative. All Readings Per Radiology Unless Otherwise Noted. Laboratory: CBC: WBC 11.3 (H), HGB 13.4, PLT 300 BMP: Na 132 (L), Glucose 278 (H), GFR 57 (L), otherwise WNL (Creatinine 1.22) 0950: Troponin I: <0.015 (Negative) Magnesium: 1.9 (WNL) Interventions: 0952: Aspirin, 324 mg, PO ED Course: Nursing notes and past medical history reviewed. I performed a physical examination of the patient as documented above. I explained the plan with the patient and who consents to this. EKG was done, interpretation as above. The patient was given oxygen via nasal cannula. A peripheral IV was established. Blood was drawn and sent for laboratory testing, results as above. The patient was placed on continuous cardiac monitoring and pulse oximetry. The patient was sent for a chest XR while in the emergency department, findings above. 1048: I rechecked with the patient. 1053: I consulted with Dr. Hall of cardiology regarding the patient. I personally reviewed the laboratory and imaging results with the patient and spouse and answered all related questions prior to transfer. Findings and plan explained to the patient and spouse. Patient will be transferred to [facility] via EMS. 1113: I discussed the case with Dr. Atwood, who will admit the patient to a monitored bed for further monitoring, evaluation, and treatment. 1215: I consulted with Dr. Myers of on-call cardiology at [facility] regarding the patient. Impression & Plan Medical Decision Making: Humberto Siddiqui is a 81 year old male who presents to the ER for evaluation of fatigue. 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 The patient has felt entirely well during his ER stay. He has been bradycardic in the 30s but has had normal blood pressures and normal mentation. I discussed the case with our on-call senior vice president and chief information officer here, and on further review of the EKG, it looks like he has a 3:1 conduction of what is likely a 3rd degree heart block, and that third P wave was buried in the T waves. Thecardiologist recommended transfer to [facility] for pacemaker placement. I discussed the case with the hospitalist and the senior vice president and chief information officer at [facility], and we'll transfer the patient there where he'll be placed in CV ICU pending pacemaker placement. Diagnosis: ICD-10-CM 1. 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 Atwood. IJosh, am serving as a scribe on 07/12/2016 at 9:40 AM to personally document services performed by Aren Guidry DO, based on my observations and the provider's statements to me. Aren Guidry DO 07/12/16 1244 ISH RUBBER documented in this encounter Plan of Treatment Upcoming Encounters Date Type Specialty Care Team Description 06/18/2022 Ancillary Procedure Cardiology Abdi Bailey MD [address] [place] [id number] (Wo rk) documented as of this encounter Procedures Procedure Name Priority Date/Time Associated Comments Diagnosis XR CHEST 2 VIEWS STAT 07/12/2016 10:08 Results for this AM FINNISH RUBBER procedure are i n the results section. CBC WITH PLATELETS & STAT 07/12/2016 9:50 AM R esults for this DIFFERENTIAL FINNISH RUBBER procedure are i n the results section. TROPONIN I STAT 07/12/2016 9:50 AM Results f or this FINNISH RUBBER procedure are i n the results section. MAGNESIUM STAT 07/12/2016 9:50 AM Results f or this FINNISH RUBBER procedure are i n the results section. BASIC METABOLIC PANEL STAT 07/12/2016 9:50 AM Results for this FINNISH RUBBER procedure are i n the results section. EKG 12-LEAD, TRACING STAT 07/12/2016 9:40 AM R esults for this ONLY FINNISH RUBBER procedure are i n the results section. documented in this encounter Results XR Chest 2 Views (07/12/2016 10:08 AM FINNISH RUBBER) Anatomical Region Laterality Modality Chest Computed Radiography Specimen (Source) Anatomical Location Collection Method / Collectio n Time Received Time / Laterality Volume Impressions 07/12/2016 10:12 AM FINNISH RUBBER IMPRESSION: Negative. ZOEY CHACKO MD Narrative 07/12/2016 10:12 AM FINNISH RUBBER XR CHEST 2 VW 07/12/2016 10:11 AM HISTORY: Chest pain Procedure Note Zoey Chacko MD - 07/12/2016Formatt ing of this note might be different from the original. XR CHEST 2 VW 07/12/2016 10:11 AM HISTORY: Chest pain IMPRESSION: Negative. ZOEY CHACKO MD Aren Guidry DO IMG DIAGNOSTIC IMAGING ORDER [place] Magnesium (07/12/2016 9:50 AM FINNISH RUBBER) athologist Signature Magnesium 1.9 1.6 - 2.3 [facility] mg/dL [facility] Specimen Anatomical Collection Method Collection Time Receive d Time (Source) Location / / Volume Laterality Blood specimen 07/12/2016 9:50 AM 017 (specimen) FINNISH RUBBER 10:11 AM FINNISH RUBBER Arenmarquita Guidry LAB - BLOOD ORDERABLES Performing Organization Address City/[facility]/ZIP [facility] Phon e Number M [facility] [address] [place], [place] [address] [place] [address] [address] [place] [address] 7, [facility] [phone] Troponin I (07/12/2016 9:50 AM FINNISH RUBBER) [facility] Method Time Signature Troponin I ES <0.015 0.000 - [place] The 99th percentile for uppe r reference range is 0.045 ug/L. ??Troponin values in 0.045 RIDGES the range of 0.045 - 0.120 ug/L may be associated wit h risks of adverse ug/L HOSPITAL clinical events. Specimen Anatomical Collection Method Collection Time Receive d Time (Source) Location / / Volume Laterality Blood specimen 07/12/2016 9:50 AM 017 (specimen) FINNISH RUBBER 10:11 AM FINNISH RUBBER Aren Neo Brea BRITO LAB - BLOOD ORDERABLES Performing Organization Address City/[facility]/ZIP [facility] Phon e Number M [facility] [address] [place], [place] [address] [facility] [address] [place] [address] 7, [facility] [phone] (ABNORMAL) Basic metabolic panel (07/12/2016 9:50 AM FINNISH RUBBER) P athologist Signature Sodium 132 (L) 133 - 144 [place] mmol/L [facility] Potassium 4.0 3.4 - 5.3 [place] mmol/L [facility] Chloride 97 94 - 109 [place] mmol/L [facility] Carbon Dioxide 22 20 - 32 [place] mmol/L [facility] Anion Gap 13 3 - 14 [place] mmol/L [facility] Glucose 278 (H) 70 - 99 [place] mg/dL [facility] Urea Nitrogen 30 7 - 30 [place] mg/dL [facility] Creatinine 1.22 0.66 - [place] 1.25 mg/dL [facility] GFR Estimate 57 (L) >60 [place] mL/min/1.[address] Comment: Non GFR Calc GFR Estimate If Black 69 >60 mL/min/1.7m2 [facility] Comment: GFR Calc Calcium 8.6 8.5 - 10.1 mg/dL [facility] Specimen Anatomical Collection Method Collection Time Receive d Time (Source) Location / / Volume Laterality Blood specimen 07/12/2016 9:50 AM 017 (specimen) FINNISH RUBBER 10:11 AM FINNISH RUBBER Aren Guidry DO LAB - BLOOD ORDERABLES Performing Organization Address City/State/ZIP Code Phon e Number [place] [address] [address] [place] [address] [facility] [address] [phone] (ABNORMAL) CBC with platelets differential (07/12/2016 9:50 AM FINNISH RUBBER) Patholo gist Method Time Signature WBC 11.3 (H) 4.0 [facility] 11.0 [facility] 10e9/L [facility] RBC Count 4.61 4.4 - 5.9 [place] 10e12/L [facility] Hemoglobin 13.4 13.3 - [place] 17.7 g/dL [facility] Hematocrit 39.4 (L) 40.0 - [place] 53.0 % [facility] MCV 86 78 - 100 [facility] MCH 29.1 26.5 - [place] 33.0 pg [facility] MCHC 34.0 31.5 - [place] 36.5 g/dL [facility] RDW 12.7 10.0 - [facility] 15.0 % [facility] Platelet Count 300 150 - [address] Diff Method Automated [facility] % Neutrophils 73.0 % [facility] % Lymphocytes 17.3 % [facility] % Monocytes 7.3 % [facility] % Eosinophils 1.2 % [facility] % Basophils 0.6 % [facility] % Immature 0.6 % [place] Granulocytes [facility] Nucleated RBCs 0 0 /100 [facility] Absolute 8.2 1.6 - 8.3 [place] Neutrophil 10e9/L [facility] Absolute 2.0 0.8 - 5.3 [place] Lymphocytes [address] [place] [address] Absolute 0.8 0.0 - 1.3 [place] Monocytes [address] [place] [address] Absolute 0.1 0.0 - 0.7 [place] Eosinophils [address] [place] [address] Absolute 0.1 0.0 - 0.2 [place] Basophils [address] [place] [address] Abs Immature 0.1 0 - 0.4 [place] Granulocytes [address] [place] [address] Absolute 0.0 [place] Nucleated RBC [facility] Specimen Anatomical Collection Method Collection Time Receive d Time (Source) Location / / Volume Laterality Blood specimen 07/12/2016 9:50 AM 017 (specimen) FINNISH RUBBER 10:11 AM FINNISH RUBBER Aren Guidry DO LAB - BLOOD ORDERABLES Performing Organization Address City/[facility]/ZIP Code Phon e Number [facility] [address] [place] [address] [facility] [address] [phone] EKG 12 lead (07/12/2016 9:40 AM FINNISH RUBBER) [facility] Method Time Signature Interpretation ECG Click View RADIOLOGY Image link RESULTS to view waveform and result Specimen (Source) Anatomical Collection Method Collection Time Re ceived Time Location / / Volume Laterality 07/12/2016 9:40 AM FINNISH RUBBER Aren Guidry DO ECG ORDERABLES Performing Organization Address City/[facility]/ZIP [facility] Phon e Number RADIOLOGY RESULTS documented in this encounter Visit Diagnoses Diagnosis Third degree heart block (H) Atrioventricular block, complete documented in this encounter Administered Medications Inactive Administered Medications - up to 3 most recent administrations Medication Order MAR Action Action Date Dose Rate Site aspirin chewable tablet 324 mg Given 07/12/2016 9:52 AM FINNISH RUBBER 324 mg 324 mg, Oral, ONCE, On 07/12/16 at 0949, For 1 dose, Hold if patient allergy to aspirin, or if aspirin has been given during this episode. documented in this encounter Active and Recently Administered Medications Times are shown in FINNISH RUBBER. Scheduled Medication Order 07/10/2016 07/11/2016 07/12/2016 aspirin chewable tablet 324 mg (COMPLETED) 0952 (Given - Provider: Negrito Alan RN) 324 mg, Oral, ONCE, 07/12/16 at 0949, For 1 dose, Hold if patient allergy to aspirin, or if aspirin has been given during this episode. documented in this encounter Care Teams Patch Driller Relationship Specialty Start Date End Date Christian Steiner MD PCP - General Internal Medicine 08/30/12 Christian Steiner MD PCP - Assigned PCP 08/11/1208/16/18 Christian Steiner MD Assigned PCP 08/11/12 02/22/21 documented as of this encounter
--- OUTSIDE RECORDS SUMMARY | 2022-04-27 07:38 | XMS_ITS | Encounter Summary ---
:1935 Author Organization [facility] Address [address] [place] [address] Care Team Providers Name Role Phone Christian Steiner MD Primary Care Provider Unavailable Christian Steiner MD Unavailable Unavailable Christian Steiner MD Unavailable Unavailable Reason for Visit Reason Onset Date Comments Call Back 07/15/2016 Encounter Details Date Type Department Care Team Description 07/15/2016 Telephone [facility] Christian Steiner MD Call Back [address] [place] [phone] Social History Tobacco Use Types Packs/Day Years Used Date Smoking Tobacco: Former Cigarettes Quit : 02/29/1980 Smokeless Tobacco: Never Alcohol Use Standard Drinks/Week Comments Yes 0 (1 standard drink = 0.6 oz pure alcoho l) occasionally Sex Assigned at Date Recorded Not on file documented as of this encounter Miscellaneous Notes Telephone Encounter - Christian Steiner MD - 07/15/2016 5:38 PM CST D/w pt. Try incr glipizide to 5 mg bid. SPORTATION OFFICER Telephone Encounter - Nina England RN - 07/15/2016 3:44 PM CST Humberto is calling requesting to talk with Dr Steiner. He was in the ED for pulse of 34-3rd degree heart block. He has an appt for 07/21/16 for f/u after pace maker placement on Wednesday. Heart manager career called him 07/15/16. He is doing fine with heart. Patient went home yesterday. BS was 225 in hospital and they used insulin. BS was 200 today. Taking metformin 1 tablet twice per day. He is very concerned and wants to talk with Dr Steiner today. He has other questions also. Routing to Dr Obdulia England RN- Triage [employer] SPORTATION OFFICER documented in this encounter Plan of Treatment Upcoming Encounters Date Type Specialty Care Team Description 06/18/2022 Ancillary Procedure Cardiology Abdi Bailey MD [address] [place] [id number] (Wo rk) documented as of this encounter Visit Diagnoses Not on filedocumented in this encounter Care Teams Plumbers And Top Helpers Relationship Specialty Start Date End Date Christian Steiner MD PCP - General Internal Medicine 08/30/12 Christian Steiner MD PCP - Assigned PCP 08/11/1208/16/18 Christian Steiner MD Assigned PCP 08/11/12 02/22/21 documented as of this encounter
--- OUTSIDE RECORDS SUMMARY | 2022-04-27 07:38 | XMS_ITS | Encounter Summary ---
:1935 Author Organization [facility] Address [facility] [address] Care Team Providers Name Role Phone Christian Steiner MD Primary Care Provider Unavailable Christian Steiner MD Unavailable Unavailable Christian Steiner MD Unavailable Unavailable Reason for Visit Auth/Cert Specialty Diagnoses / Procedures Referred By Contact Refer red To Contact Cardiology Diagnoses 3rd degree heart block Third degree heart block (H) Cardiac Spec Care [address] , [address] [place] [address] Phone: Referral ID Status Reason Start Date Expiration Date Visits Requ ested Visits Authorized [id number] 07/13/2016 07/13/2017 1 1 Encounter Details Date Type Department Care Team Description 07/12/2016 - Hospital Encounter [facility] Mitch Limon [facility] [address], [place] [address] [place] [address] (Work) [phone] Social History Tobacco Use Types Packs/Day Years Used Date Smoking Tobacco: Former Cigarettes Quit : 02/29/1980 Smokeless Tobacco: Never Alcohol Use Standard Drinks/Week Comments Yes 0 (1 standard drink = 0.6 oz pure alcoho l) occasionally Sex Assigned at Date Recorded Not on file documented as of this encounter Last Filed Vital Signs Vital Sign Reading Time Taken Comments Blood Pressure 146/87 07/14/2016 11:46 AM WOOL WASHER Pulse 36 07/12/2016 1:00 PM WOOL WASHER Temperature 36.7 ??C (98.1 ??F) 07/14/2016 7:31 AM WOOL WASHER Respiratory Rate 16 07/14/2016 11:46 AM WOOL WASHER Oxygen Saturation 94% 07/14/2016 11:46 AM WOOL WASHER Inhaled Oxygen Concentration - - Weight 94.8 kg (208 lb 15.9 oz) 07/14/2016 5:00 AM WOOL WASHER Height - - Body Mass Index 28.34 07/12/2016 9:46 AM WOOL WASHER documented in this encounter Discharge Summaries Vahe Kim MD - 07/14/2016 3:05 PM CST DATE OF ADMISSION: 07/12/2016. DATE OF DISCHARGE: 07/14/2016. DISCHARGE DIAGNOSES: 1. Complete heart block, status post dual-chamber pacemaker on 07/13/2016. 2. Type 2 diabetes. 3. Hypertension. 4. Hyperlipidemia. 5. Prostate cancer. DISCHARGE MEDICATIONS: 1. Metformin 1000 mg twice a day. 2. Glipizide 5 mg daily. 3. Lisinopril 10 mg daily. 4. Atorvastatin 40 mg daily. 5. Cinnamon 500 mg daily. 6. Calcium carbonate plus D 1 tab twice a day. 7. Cholecalciferol 1 cap 1000 units daily. 8. Vitamin B complex 1 tab daily. 9. Casodex 50 mg daily. 10. Aspirin 81 mg daily. 11. Multivitamin 1 tab daily. 12. Coenzyme Q10 one cap daily. HOSPITAL COURSE: This is a 81-year-old gentleman who presented to [facility] on 07/12/16 with complaints of fatigue. Workup in the Emergency Department showed that he was bradycardic into the 30s, ultimately determined that he was in third-degree heart block. He was transferred to [facility], Cardiology and EP services did evaluate him and felt that he would benefit froma dual-chamber pacemaker, which was implanted on 07/13/2016. Post procedure patient has had followup with EP service who did see him this morning. They felt that his x-ray this morning was acceptable regarding his chest x-ray. Did report a cardiac device with tips in the right atrium and right ventricle, no pneumothorax, blunting of the right clustering costophrenic angle by fluid or thickened pleura.He had an echocardiogram that showed an EF of 55- 60% with grade 2 diastolic dysfunction. DISCHARGE EXAM: GENREAL: The patient is awake, alert. LUNGS: Clear. CARDIOVASCULAR: Regular rate and rhythm, S1, S2. ABDOMEN: Bowel sounds positive, nontender, nondistended. EXTREMITIES: No edema. PLAN: The patient feels ready to discharge to home. In fact is quite anxious to leave as soon as possible. Family is here to help transport him. He will follow up with his own primary care physician and with Cardiology and EP services through the [facility]. TOTAL TIME SPENT: 40 minutes spent on discharge planning and cares. VAHE KIM MD MT: [id number] Name: JANETH SIDDIQUI Account: [id number] : 1935 Admit Date: Discharge Date: Document: [id number] WASHER documented in this encounter Discharge Instructions Discharge InstructionsMeli Dodd RN - 07/14/2016 3:45 PM CST Images from the original note were not included. Home Care after a Pacemaker Patient Name: Janeth Siddiqui Today's Date: July 14, 2016 How should I care for the wound? Keep the bandage on for 3 days. Change it only if it gets loose or soaked. If you need to change it,use [id number] gauze and a large clear bandage. Leave the strips of tape on. They will fall off on their own, or we will remove them at your first check-up. Check your wound daily for signs of infection, such as increased redness, severe swelling or draining. Fever may also be a sign of infection. Call us if you see any of these signs. Can I take a shower or bath? If there are no signs of infection, you may shower after the bandage comes off in 3 days. If you take a tub bath, keep the wound dry. Will I have much pain? You may have mild to medium pain for 3 to 5 days. Take acetaminophen (Tylenol) or ibuprofen (Advil) for the pain. If the pain persists or is severe, call us. How should I limit my activities? For at least 3 weeks: Do not raise your elbow above your shoulder. You can begin to use your arm as it feels comfortable to you. In 6 to 8 weeks: You may begin to golf, play tennis, swim and do similar activities. If you received an ICD, do not drive until we check it at your first follow-up visit. If you received a new generator (battery), you should not drive for 24 hours. What about after the wound has healed and I am feeling better? For your safety, do not swim alone. If possible, avoid climbing a ladder. It is best to stay within 4 feet of the ground. Avoid activities that may involve rough contact or a hard hit to the area of the device. What if I feel dizzy or light-headed? If you feel dizzy or light-headed, please call us. How will others know that I have a device implanted in me? Before you leave the hospital, you will receive a temporary ID card. A permanent card will be mailedto you about 6 to 8 weeks later. Always carry the ID card with you. It has important details about your device. You should also get a [employer] bracelet or tag that says you have a pacemaker or defibrillator. Please ask us for a [employer] brochure, or go to [email or web address]. Always tell doctors, dentists and other care providers that you have a device implanted in you. Let us know before you plan any surgeries. Your care team must take special steps to keep you safe during certain procedures. These steps will depend on the type of device you have. Your doctor will need to see your ID card. He or she may need to call us for instructions. Will I need to be careful around electrical equipment? All of these household appliances are safe to use: ?? Microwaves ?? Remote controls ?? Radios ?? Small electrical tools ?? Cordless phones However, you need to keep all electrical equipment in good repair. Strong electro-magnetic gallagher can interfere with your device. Stay at least a few feet away from: ?? Stereo speakers, including boom boxes ?? Magnets and magnetic wands used by [employer]; [employer] wands Do not try to fix any motor while it is running. Running motors can make an electro-magnetic field that can interfere with your device. Use cell phones with the ear that is farthest from your device. Do not put a cell phone in a pocket near your device, unless the phone is turned off. Avoid the following, which can interfere with your device: ?? Magnetic resonance imaging (MRI) tests in the hospital ?? Arc welding ?? Getting close to a TV or radio transmission tower or to an antenna on a [employer] radio When do I need to come back for a check-up? You will need to come back for your first check-up in 7 to 10 days. We will contact you after you leave the hospital. If you do not hear from us within 3 days, call us to set up a visit. Please bring your medicine list or your medicine bottles to this visit. The battery in your device will need to be checked every 3 months. As it gets older, it will need los checked more often than this. For questions or to make an appointment: Call [facility] at [phone]. If you are deaf or hard of hearing, please let us know. We provide many free services including signlanguage interpreters, oral interpreters, TTYs, telephone amplifiers, note takers and written materials. WASHER documented in this encounter Medications at Time [...] long-term current use of insulin (H) ACCU-CHEK FRANCISCO PLUS test TEST EVERY DAY 100 each 1 07/16/2016 stripIndications: Type 2 DIRECTED diabetes mellitus without complication (H) documented as of this encounter Progress Notes Meli Dodd RN - 07/14/2016 4:20 PM CST VSS, no c/o pain, IV site removed intact, pacer site CDI. AVS, follow-up appts, and med rec all discussed in detail with patient and spouse, both verbalized understanding of materials. All questions and concerns addressed at this time. Adriane Guzman RN - 07/14/2016 10:00 AM CST Device Discharge Dressing: Occlusive dressing is intact Chest XR reviewed: Yes Pneumo present?: No Lead Measurements per Device Rep: WNL Education Provided: Avoid raising left arm above the level of the shoulder for 3 weeks. Do not shower until outer occlusive dressing has been removed. Remove outer dressing in 3 - 4 days. Leave steri-strips in place, these will be removed at the 1 week check. Call Device Clinic with increased swelling, drainage, or fever > 101 degrees. Follow-up with the Device Clinic as scheduled. Tonya Yousif MD - 07/14/2016 9:09 AM CST EP Cardiology Progress Note Michelle Sneed MD Assessment and Plan: 1.?? Symptomatic complete AV block:?? Symptoms started last Wednesday (COPELAND).?? Dual-chamber PM implanted yesterday.?? Wound, CXR, PM interrogation all look OK today. - OK to dc home from an EP standpoint. Device nurse will visit with pt and set up f/up apt. Post PM instructions discussed.?? - official echocardiogram results p. LV/RV function look OK to me. Interval History: no new complaints; minimal incisional tenderness Review of Systems: C: NEGATIVE for fever, chills, change in weight E/M: NEGATIVE for ear, mouth and throat problems R: NEGATIVE for significant cough or SOB CV: NEGATIVE for chest pain, palpitations or peripheral edema Physical Exam: Blood pressure 153/90, pulse 36, temperature 98.1 ??F (36.7 ??C), temperature source Oral, resp. rate 16, weight 94.8 kg (208 lb 15.9 oz), SpO2 100 %. Filed Vitals: 07/13/16 0500 07/14/16 0500 Weight: 98.5 kg (217 lb 2.5 oz) 94.8 kg (208 lb 15.9 oz) Vital Signs with Ranges Temp: [97.4 ??F (36.3 ??C)-98.6 ??F (37 ??C)] 98.1 ??F (36.7 ??C) Heart Rate: [64-81] 78 Resp: [16-18] 16 BP: (137-164)/(65-98) 153/90 mmHg SpO2: [94 %-100 %] 100 % I/O's Last 24 hours I/O last 3 completed shifts: In: 600 [I.V.:600] Out: 4025 [Urine:4025] EXAM: A+O x 3 Lungs: clear CV: no hematoma, RRR, no g/m/r ABD: soft EXTR: no edema Medications: ??? sodium chloride (PF) 3 mL Intracatheter Q8H ??? ceFAZolin 2 g Intravenous Q8H ??? insulin aspart 1-7 Units Subcutaneous TID AC ??? insulin aspart 1-5 Units Subcutaneous At Bedtime ??? atorvastatin 40 mg Oral QPM ??? bicalutamide 50 mg Oral Daily ??? lisinopril 10 mg Oral Daily Data: All new lab and imaging data was reviewed. Recent Labs Lab Test 07/13/16 0530 07/12/16 0950 WBC 9.2 11.3* HGB 11.9* 13.4 MCV 85 86 PLT 228 300 INR 1.10 -- Recent Labs Lab Test 07/13/16 0530 07/12/16 0950 03/17/16 1332 NA 138 132* 139 POTASSIUM 4.9 4.0 4.2 CHLORIDE 105 97 104 CO2 25 22 26 BUN 29 30 25 CR 1.23 1.22 1.14 ANIONGAP 8 13 8.9 JAYDEN 8.0* 8.6 8.9 GLC 197* 278* 156* Recent Labs Lab Test 07/12/16 0950 TROPI <0.015 The 99th percentile for upper reference range is 0.045 ug/L. Troponin values in the range of 0.045 - 0.120 ug/L may be associated with risks of adverse clinical events. EKG results: Reviewed Imaging: Recent Results (from the past 24 hour(s)) X-ray Chest 2 vws* Narrative XR CHEST 2 VW 07/14/2016 7:47 AM HISTORY: Lead positioning. Impression IMPRESSION: Cardiac device with tips in the right atrium and right ventricle. No pneumothorax. Blunting right costophrenic angle by fluid or thickened pleura. Infiltrate or atelectasis right lung base. YANCY VALLEJO MD WASHER Lenin Ragland RN - 07/13/2016 3:18 PM CST Nursing note Pt back on the floor from labor and employment paralegal for PPM. Doing well. Pt denies any pain. Pt denies any numbness or tingling. Dressing d/c/i. Not drainage or hematoma noted. VSS.BP 137/73 mmHg Pulse 36 Temp(Src)98.3 ??F (36.8 ??C) (Oral) Resp 16 Wt 98.5 kg (217 lb 2.5 oz) SpO2 95% on RA. Tele is 100% paced. Will continue to monitor. WASHER Ke Reno MD - 07/13/2016 2:20 PM CST Patient is status post PPM implantation. Procedure details are below: Indication: complete AVB Findings: Successful PPM implantation Estimated blood loss was minimal (< 30 cc) No immediate complications are apparent. Ke Reno MD WASHER Lenin Ragland RN - 07/13/2016 1:27 PM CST Nursing note Pt a/o x 4, up independently in the room. HR rate has been in 30's, pt asymptomatic. Denies any painor CP. Pt left the floor around 1325 for procedure. Pt accompanied by labor and employment paralegal RN and aide. Pt family are also here. Rachel Lr MD - 07/13/2016 8:[address] [facility] Hospitalist Progress Note Rachel Salazar MD 07/13/2016 Assessment and Plan Janeth Siddiqui is a 81 year old male with hx of DM2, HTN, HL, and prostate cancer who initially presented to [facility] with fatigue. He was found to have 3rd degree heart block and was transferred to [facility] for further management. Third degree AV block Presented with new onset fatigue. EKG on arrival showed 3rd degree AV block with heart rate in mid 30s. ?? - Currently asymptomatic ?? - TTE pending - Cardiology consulted, pacemaker placement today DM2 without complications [SALES ASSISTANT: metformin 1000 mg BID, glipizide 5 mg daily] - A1c 7.8% - Hold further metformin and glipizide given diet interruption for procedure - continue with medium intensity SSI Essential hypertension - Chronic and stable on lisinopril 10 mg daily Dyslipidemia - Chronic and stable on atorvastatin 40 mg daily and coenzyme Q10 History of prostate cancer - Status post hormone therapy and radiation. Was previously receiving Lupron injections, but this was discontinued by his primary urologist, Dr. Good, in Feb 2016. - continue on prior to admission bicalutamide. ?? FEN: mod CHO diet DVT Prophylaxis: Pneumatic Compression Devices Code Status: Full Code Disposition: Expected discharge in 1-2 days pending pacemaker placement and Cardiology clearance. Interval History Denies chest pain, or lightheadedness at rest. No acute issues overnight. He is planned for pacemaker placement today. -Data reviewed today: I reviewed all new labs and imaging over the last 24 hours. I personally reviewed no images or EKG's today. Physical Exam Heart Rate: 32, Blood pressure 123/63, pulse 36, temperature 97.4 ??F (36.3 ??C), temperature sourceOral, resp. rate 19, weight 98.5 kg (217 lb 2.5 oz), SpO2 95 %. Filed Vitals: 07/13/16 0500 Weight: 98.5 kg (217 lb 2.5 oz) Vital Signs with Ranges Temp: [97.4 ??F (36.3 ??C)-98.4 ??F (36.9 ??C)] 97.4 ??F (36.3 ??C) Pulse: [34-39] 36 Heart Rate: [30-38] 32 Resp: [14-22] 19 BP: (89-140)/(53-125) 123/63 mmHg SpO2: [91 %-100 %] 95 % I/O's Last 24 hours I/O last 3 completed shifts: In: 1500 [P.O.:300; I.V.:1200] Out: 2074 [Urine:2074] Constitutional: Alert, awake and no apparent distress Respiratory: Clear to auscultation bilaterally, no wheezing Cardiovascular: carmel, irregular GI: soft, Non-tender and non-distended Ext: no LE edema bilaterally Medications All medications I am responsible for were reviewed. ??? NaCl 30 mL/hr at 07/13/16827 ??? - MEDICATION INSTRUCTIONS - ??? NaCl 75 mL/hr at 07/13/16417 ??? sodium chloride (PF) 3 mL Intracatheter Q8H ??? insulin aspart 1-7 Units Subcutaneous TID AC ??? insulin aspart 1-5 Units Subcutaneous At Bedtime ??? atorvastatin 40 mg Oral QPM ??? bicalutamide 50 mg Oral Daily ??? lisinopril 10 mg Oral Daily Data Recent Labs Lab 07/13/16 0530 07/12/16 0950 WBC 9.2 11.3* HGB 11.9* 13.4 MCV 85 86 PLT 228 300 INR 1.10 -- NA 138 132* POTASSIUM 4.9 4.0 CHLORIDE 105 97 CO2 25 22 BUN 29 30 CR 1.23 1.22 ANIONGAP 8 13 JAYDEN 8.0* 8.6 GLC 197* 278* TROPI -- <0.015The 99th percentile for upper reference range is 0.045 ug/L. Troponin values in the range of 0.045 - 0.120 ug/L may be associated with risks of adverse clinical events. Recent Results (from the past 24 hour(s)) XR Chest 2 Views Narrative XR CHEST 2 VW 07/12/2016 10:11 AM HISTORY: Chest pain Impression IMPRESSION: Negative. ZOEY HOANG MD WASHER Tonya Sneed MD - 07/13/2016 8:38 AM CST EP Cardiology Progress Note Michelle Sneed MD Assessment and Plan: 1. Symptomatic complete AV block: Symptoms started last Wednesday (COPELAND). Currently has escape rhythm inthe 30s. No reversible cause of AVB. No previous history of cardiac disease - proceed with dual-chamber PM today. I have reviewed the technical aspects, risks & benefits of the procedure with the patient. Potential risks include, but are not limited to, pneumothorax, infection, vascular injury, cardiac perforation with tamponade requiring pericardial drainage or surgical repair, DVT, lead dislodgment requiring revision. The patient expressed understanding and agrees to proceed. - echocardiogram this am Interval History: no new complaints; no cp, sob at rest, n/v/d, or abd pain. Review of Systems: C: NEGATIVE for fever, chills, change in weight E/M: NEGATIVE for ear, mouth and throat problems R: NEGATIVE for significant cough or SOB CV: NEGATIVE for chest pain, palpitations or peripheral edema Physical Exam: Blood pressure 123/63, pulse 36, temperature 97.4 ??F (36.3 ??C), temperature source Oral, resp. rate 19, weight 98.5 kg (217 lb 2.5 oz), SpO2 95 %. Filed Vitals: 07/13/16 0500 Weight: 98.5 kg (217 lb 2.5 oz) Vital Signs with Ranges Temp: [97.4 ??F (36.3 ??C)-98.4 ??F (36.9 ??C)] 97.4 ??F (36.3 ??C) Pulse: [34-39] 36 Heart Rate: [30-38] 32 Resp: [14-22] 19 BP: (89-140)/(53-125) 123/63 mmHg SpO2: [91 %-100 %] 95 % I/O's Last 24 hours I/O last 3 completed shifts: In: 1500 [P.O.:300; I.V.:1200] Out: 2074 [Urine:2074] EXAM: A+O x 3 LUNGS: clear CV: nl JVP, RRR, no murmutr ABD: soft, NT EXTR: no edema Medications: ??? sodium chloride (PF) 3 mL Intracatheter Q8H ??? insulin aspart 1-7 Units Subcutaneous TID AC ??? insulin aspart 1-5 Units Subcutaneous At Bedtime ??? atorvastatin 40 mg Oral QPM ??? bicalutamide 50 mg Oral Daily ??? lisinopril 10 mg Oral Daily Data: All new lab and imaging data was reviewed. Recent Labs Lab Test 07/13/16 0530 07/12/16 0950 WBC 9.2 11.3* HGB 11.9* 13.4 MCV 85 86 PLT 228 300 INR 1.10 -- Recent Labs Lab Test 07/13/16 0530 07/12/16 0950 03/17/16 1332 NA 138 132* 139 POTASSIUM 4.9 4.0 4.2 CHLORIDE 105 97 104 CO2 25 22 26 BUN 29 30 25 CR 1.23 1.22 1.14 ANIONGAP 8 13 8.9 JAYDEN 8.0* 8.6 8.9 GLC 197* 278* 156* Recent Labs Lab Test 07/12/16 0950 TROPI <0.015 The 99th percentile for upper reference range is 0.045 ug/L. Troponin values in the range of 0.045 - 0.120 ug/L may be associated with risks of adverse clinical events. EKG results: Reviewed Imaging: Recent Results (from the past 24 hour(s)) XR Chest 2 Views Narrative XR CHEST 2 VW 07/12/2016 10:11 AM HISTORY: Chest pain Impression IMPRESSION: Negative. ZOEY HOANG MD WASHER documented in this encounter H&P Notes Mitch Limon MD - 07/12/2016 1:[address] [facility] History and Physical Hospitalist Date of Admission: 07/12/2016 Date of Service (when I saw the patient): 07/12/2016 Assessment and Plan Janeth Siddiqui is a 81 year old male with hx of DM2, HTN, HL, and prostate cancer who initially presented to [facility] with fatigue. He was found to have 3rd degree heart block and was transferred to [facility] for further management. Third degree AV block Presented with new onset fatigue. EKG on arrival showed 3rd degree AV block with heart rate in mid 30s. - Currently asymptomatic - TTE - Cardiology has been consulted DM2 without complications [SALES ASSISTANT: metformin 1000 mg BID, glipizide 5 mg daily] - BG 278 on arrival, will give glipizide 5 mg x1 now - Hold further metformin and glipizide for now - Medium sliding scale insulin available - A1c ordered for tomorrow Essential hypertension Chronic and stable on lisinopril 10 mg daily Dyslipidemia Chronic and stable on atorvastatin 40 mg daily and coenzyme Q10 History of prostate cancer Status post hormone therapy and radiation. Was previously receiving Lupron injections, but this was discontinued by his primary urologist, Dr. Good, in Feb 2016. He has been continued on prior to admission bicalutamide. FEN: mod CHO diet DVT Prophylaxis: Pneumatic Compression Devices Code Status: Full Code - this was discussed with the patient Disposition: Expected discharge in 2-3 days pending pacemaker placement and Cardiology clearance. Mitch Limon Primary Care Physician Christian Steiner Chief Complaint Fatigue History is obtained from the patient and medical records History of Present Illness Janeth Siddiqui is a 81 year old male with hx of DM2, HTN, HL, and prostate cancer who initially presented to [facility] with fatigue. He was found to have 3rd degree heart block and was transferred to [facility] for further management. The patient reports he was at his usual state of health until 2 days ago when he noticed new onset fatigue. He exercises on the treadmill regularly, and noticed this was more difficult to do than usual. He endorses transient dizziness/lightheadedness, but denies syncope. He denies chest pain or shortness of breath. He denies fevers/chills or recent illnesses. He has been eating and drinking well. His HR is currently in the 50s and he is asymptomatic. Cardiology consult is pending. Past Medical History I have reviewed this patient's medical history and updated the medical record Past Medical History Diagnosis Date ??? Diabetes mellitus (H) Type II dx approx. 2003 ? High cholesterol ??? Malignant neoplasm of prostate (H) 2002 Prostate cancer; radioactive seeds ; Dr. Mckee; casodex in 2012 ??? Hypertension Past Surgical History I have reviewed this patient's surgical history and updated the medical record Past Surgical History Procedure Laterality Date ??? Excise mass back 03/06/2013 Procedure: EXCISE MASS BACK; Excision Left Back Mass, and Right Back Mass; Surgeon: Abdirashid King MD; Location: [facility] OR ??? Genitourinary surgery prostate ??? Colonoscopy N/A 04/07/2016 Procedure: COLONOSCOPY; Surgeon: Aldo Clarke MD; Location: GI Prior to Admission Medications Prior to Admission Medications Prescriptions Last Dose Informant Patient Reported? Taking? ACCU-CHEK FRANCISCO PLUS test strip No No Sig: TEST EVERY DAY DIRECTED Calcium Carbonate-Vitamin D (CALCIUM 600 + D OR) Yes No Sig: Take 1 tablet by mouth daily Cholecalciferol (VITAMIN D) 1000 UNITS capsule Yes No Sig: Take 1 capsule by mouth daily. Co-Enzyme Q-10 10 MG CAPS Yes No Sig: Take by mouth daily. Multiple Vitamin (DAILY MULTIVITAMIN PO) Yes No Sig: Take by mouth. aspirin 81 MG tablet Yes No Sig: Take 1 tablet by mouth daily. atorvastatin (LIPITOR) 40 MG tablet No No Sig: Take 1 tablet (40 mg) by mouth daily bicalutamide (CASODEX) 50 MG tablet Yes No Sig: Take 50 mg by mouth daily. cinnamon 500 MG CAPS Yes No Sig: Take 1 capsule by mouth daily glipiZIDE (GLUCOTROL) 5 MG tablet No No Sig: Take 1 tablet (5 mg) by mouth daily lisinopril (PRINIVIL,ZESTRIL) 10 MG tablet No No Sig: Take 1 tablet (10 mg) by mouth daily metFORMIN (GLUCOPHAGE) 1000 MG tablet No No Sig: TAKE 1 TABLET BY MOUTH TWICE DAILY vitamin B complex with vitamin C (VITAMIN B COMPLEX) TABS Yes No Sig: Take 1 tablet by mouth daily. Facility-Administered Medications: None Allergies No Known Allergies Social History - Remote history of smoking - He denies history of alcohol or illicit drug use - He is and lives with his . He is independent of all cares Family History I have reviewed this patient's family history Family History Problem Relation Age of Onset ??? DIABETES Son type 2 DM age 50 Review of Systems The 10 point Review of Systems is negative other than noted in the HPI Physical Exam Vital Signs with Ranges Temp: [97.5 ??F (36.4 ??C)] 97.5 ??F (36.4 ??C) Pulse: [34-39] 34 Heart Rate: [38] 38 Resp: [16] 16 BP: (117-132)/(62-71) 117/62 mmHg SpO2: [96 %-100 %] 98 % 0 lbs 0 oz Constitutional: Appears comfortable, NAD HEENT: NC/AT, sclera white, conjunctiva clear, EOMI, MMM Respiratory: Breathing non-labored. Lungs CTAB - no wheezes/crackles/rhonchi Cardiovascular: Heart rate slow and regular, no m/r/g. No pedal edema. GI: +BS. Abd soft/NT Skin: Warm and dry. No rash. Musculoskeletal: Normal muscle bulk and tone Neurologic: Alert and appropriate. GUZMÁN Psychiatric: Normal affect Data Data reviewed today: I personally reviewed the EKG tracing showing complete heart block. Recent Labs Lab 07/12/16 0950 WBC 11.3* HGB 13.4 MCV 86 PLT 300 NA 132* POTASSIUM 4.0 CHLORIDE 97 CO2 22 BUN 30 CR 1.22 ANIONGAP 13 JAYDEN 8.6 GLC 278* TROPI <0.015The 99th percentile for upper reference range is 0.045 ug/L. Troponin values in the range of 0.045 - 0.120 ug/L may be associated with risks of adverse clinical events. Recent Results (from the past 24 hour(s)) XR Chest 2 Views Narrative XR CHEST 2 VW 07/12/2016 10:11 AM HISTORY: Chest pain Impression IMPRESSION: Negative. ZOEY HOANG MD WASHER documented in this encounter Consult Notes Maribell Myers MD - 07/12/2016 6:14 PM CST The patient is seen today. REASON FOR CONSULTATION: Complete heart block. HISTORY OF PRESENT ILLNESS: Janeth Siddiqui is a 81-year-old male with past medical history of diabetes,hypertension, dyslipidemia who presents from [facility] with fatigue. The patient was found to have third-degree heart block over there and was transferred here for further management. He states that for the past 2 days he has had a new onset fatigue. He has had a recent exercise intolerance symptoms. He does endorse some presyncope but no syncope. Denies chest pain, shortness of breath symptoms. As of today, he denies having any active cardiovascular or cardiopulmonary symptoms. PAST MEDICAL HISTORY: Diabetes, cholesterol, hypertension. PAST SURGICAL HISTORY: Colonoscopy. MEDICATIONS: Reviewed. ALLERGIES: Reviewed. SOCIAL HISTORY: Remote smoking history. Denies alcohol or illicit drug use. FAMILY HISTORY: Diabetes. REVIEW OF SYSTEMS: A 10-point review of systems negative except as per HPI. PHYSICAL EXAMINATION: VITAL SIGNS: Temperature 98.1, pulse 36, blood pressure is 136/65. GENERAL: No acute distress, alert, oriented x3. HEENT: Normocephalic, atraumatic. Extraocular movements intact. RESPIRATORY: Lungs clear to auscultation bilaterally. CARDIOVASCULAR: Bradycardic, no murmurs, rubs or gallops. No leg edema. GASTROINTESTINAL: Soft, nontender, nondistended. SKIN: Warm, dry and intact. EXTREMITIES: No clubbing, cyanosis or edema. NEUROLOGIC: Intact. ASSESSMENT AND PLAN: Third-degree AV block. The patient presents in the setting of a 2-day history of fatigue symptoms and has been found to be in complete heart block. His echocardiogram reveals ventricular escape beats at a rate of 40 beats per minute. His troponin was negative. His electrolytes have been unremarkable except for a sodium of 132. His TSH is normal. At this point, there does not appear to be any reversible cause for his third-degree AV block. We will proceed with the followin. We will proceed with a dual-chamber permanent pacemaker implantation tomorrow. 2. Keep the patient n.p.o. from midnight. 3. Will avoid AV courtney blocking agents. Thank you for this interesting consult. We will continue to follow along. MARIBELL MYERS MD MT: CHASIDY Name: JANETH SIDDIQUI MRN: [id number] Account: [id number] : 1935 Consult Date: 07/12/2016 Document: [id number] WASHER documented in this encounter Miscellaneous Notes Plan of Care - Lilly Tanner RN - 07/14/2016 2:21 PM CST Problem: Goal Outcome Summary Goal: Goal Outcome Summary Outcome: Improving Awake and alert. 100 percent V paced. PPM site is CDI, VSS, denies pain, up with assist of one. Planning discharge after echo is read. WASHER Plan of Care - Ximena Guerra RN - 07/14/2016 6:37 AM CST Problem: Cardiac Output Decreased (Adult) Goal: Identify Related Risk Factors and Signs and Symptoms Related risk factors and signs and symptoms are identified upon initiation of Human Response Clinical Practice Guideline (CPG) Outcome: No Change Uneventful shift with patient sleeping well, despite having a confused room mate. PPM site C/D/I andrhythm has been 100% V-Paced. VSS. Denies pain. Receiving Ancef dose. Patient wearing left arm sling. WASHER Plan of Care - Rj Caldwell RN - 07/13/2016 6:28 AM CST Problem: Goal Outcome Summary Goal: Goal Outcome Summary Outcome: No Change No overnight change or issues, remains asymptomatic with CHB per tele displays of HR 30 to 32. Stable BP. Fall precautions in place. Zoll at bedside. NPO. Pt plans for possible EP ICD/PM/loop recorder today. WASHER Plan of Care - Rj Caldwell RN - 07/12/2016 10:27 PM CST Problem: Goal Outcome Summary Goal: Goal Outcome Summary Outcome: No Change Tele remains in complete heart block with HR 31 to 35, BP WDL, limited activities due to low HR, stand by assist, Zoll at bedside, denies SOB/ lightheadedness/dizziness/CP or any pain. Good appetite atdinner. Pt plans for possible EP ICD/PM/loop recorder tomorrow. WASHER Plan of Care - Deysi Escamilla RN - 07/12/2016 3:08 PM CST Problem: Goal Outcome Summary Goal: Goal Outcome Summary Outcome: No Change Patient is A&OX4, VSS except for heart rate which is in 30s with complete heart block, CMS intact. Up with SBA. Voiding in bathroom. Mod carb Diet. Denies Pain, dizziness, lightheadedness, weakness. Zoll on with frequent vitals. Possible pacemaker placement. Will continue to monitor. WASHER Pharmacy-Admission Medication History - Regina Lin RPH - 07/12/2016 1:30 PM CST Admission medication history interview status for the 07/12/2016 admission is complete. See [facility] admission navigator for prior to admission medications Medication history source reliability:Good Actions taken by pharmacist (provider contacted, etc): Interviewed patient Additional medication history information not noted on SALES ASSISTANT med list :None Medication reconciliation/reorder completed by provider prior to medication history? Yes Time spent in this activity: 20 minutes Prior to Admission medications Medication Sig Last Dose Taking? Auth Provider metFORMIN (GLUCOPHAGE) 1000 MG tablet TAKE 1 TABLET BY MOUTH TWICE DAILY 07/11/2016 at pm Yes Christian Steiner MD glipiZIDE (GLUCOTROL) 5 MG tablet Take 1 tablet (5 mg) by mouth daily 07/11/2016 at am Yes Christian Steiner MD lisinopril (PRINIVIL,ZESTRIL) 10 MG tablet Take 1 tablet (10 mg) by mouth daily 07/11/2016 at am Yes Christian Steiner MD atorvastatin (LIPITOR) 40 MG tablet Take 1 tablet (40 mg) by mouth daily 07/11/2016 at pm Yes Christian Steiner MD cinnamon 500 MG CAPS Take 1 capsule by mouth daily 07/11/2016 at am Yes Reported, Patient Calcium Carbonate-Vitamin D (CALCIUM 600 + D OR) Take 1 tablet by mouth daily 07/11/2016 at 1400 Yes Reported, Patient Cholecalciferol (VITAMIN D) 1000 UNITS capsule Take 1 capsule by mouth daily. 07/11/2016 at am Yes Reported, Patient vitamin B complex with vitamin C (VITAMIN B COMPLEX) TABS Take 1 tablet by mouth daily. 07/11/2016 atam Yes Reported, Patient bicalutamide (CASODEX) 50 MG tablet Take 50 mg by mouth daily. 07/11/2016 at 1400 Yes Reported, Patient aspirin 81 MG tablet Take 1 tablet by mouth daily. 07/11/2016 at hs Yes Reported, Patient Multiple Vitamin (DAILY MULTIVITAMIN PO) Take by mouth. 07/11/2016 at am Yes Reported, Patient Co-Enzyme Q-10 10 MG CAPS Take by mouth daily. 07/11/2016 at am Yes Reported, Patient ACCU-CHEK FRANCISCO PLUS test strip TEST EVERY DAY DIRECTED Christian Steiner MD Sharon Chandler, PharmD, BCPS WASHER documented in this encounter Plan of Treatment Upcoming Encounters Date Type Specialty Care Team Description 06/18/2022 Ancillary Procedure Cardiology Abdi Bailey MD [address] [place] [id number] (Wo rk) documented as of this encounter Procedures Procedure Name Priority Date/Time Associated Comments Diagnosis GLUCOSE BY METER Routine 07/14/2016 12:06 PM Resu lts for this WOOL WASHER procedure are i n the results section. XR CHEST 2 VIEWS Routine 07/14/2016 7:47 AM Resul ts for this WOOL WASHER procedure are i n the results section. GLUCOSE BY METER Routine 07/14/2016 7:37 AM Resul ts for this WOOL WASHER procedure are i n the results section. EP REPORT - HIM SCAN 07/14/2016 12:00 AM WOOL WASHER GLUCOSE BY METER Routine 07/13/2016 8:58 PM Resul ts for this WOOL WASHER procedure are i n the results section. GLUCOSE BY METER Routine 07/13/2016 5:50 PM Resul ts for this WOOL WASHER procedure are i n the results section. ECHO COMPLETE Routine 07/13/2016 3:50 PM Results for this WOOL WASHER procedure are i n the results section. H PERM PACER DBLE Routine 07/13/2016 2:28 PM Resu lts for this LEAD WOOL WASHER procedure are i n the results section. GLUCOSE BY METER Routine 07/13/2016 12:15 PM Resu lts for this WOOL WASHER procedure are i n the results section. GLUCOSE BY METER Routine 07/13/2016 8:08 AM Resul ts for this WOOL WASHER procedure are i n the results section. INR STAT 07/13/2016 5:30 AM Results f or this WOOL WASHER procedure are i n the results section. HEMOGLOBIN A1C Routine 07/13/2016 5:30 AM Results for this WOOL WASHER procedure are i n the results section. BASIC METABOLIC Routine 07/13/2016 5:30 AM Result s for this PANEL WOOL WASHER procedure are i n the results section. CBC WITH PLATELETS STAT 07/13/2016 5:30 AM Res ults for this WOOL WASHER procedure are i n the results section. GLUCOSE BY METER Routine 07/13/2016 2:08 AM Resul ts for this WOOL WASHER procedure are i n the results section. GLUCOSE BY METER Routine 07/12/2016 9:15 PM Resul ts for this WOOL WASHER procedure are i n the results section. GLUCOSE BY METER Routine 07/12/2016 5:14 PM Resul ts for this WOOL WASHER procedure are i n the results section. GLUCOSE BY METER Routine 07/12/2016 2:37 PM Resul ts for this WOOL WASHER procedure are i n the results section. EKG 12-LEAD, TRACING STAT 07/12/2016 1:21 PM R esults for this ONLY WOOL WASHER procedure are i n the results section. documented in this encounter Results (ABNORMAL) Glucose by meter (07/14/2016 12:06 PM WOOL WASHER) P athologist Signature Glucose 201 (H) 70 - 99 POINT OF CARE mg/dL TEST, GLUCOSE Specimen Anatomical Collection Method Collection Time Receive d Time (Source) Location / / Volume Laterality 07/14/2016 12:06 07/14/2016 PM WOOL WASHER 12:11 PM WOOL WASHER Mitch BIRCH POCT Performing Organization Address City/State/ZIP Code Phon e Number FV POINT OF CARE TEST, GLUCOSE POINT OF CARE TEST, GLUCOSE X-ray Chest 2 vws* (07/14/2016 7:47 AM WOOL WASHER) Anatomical Region Laterality Modality Chest Computed Radiography Specimen (Source) Anatomical Location Collection Method / Collectio n Time Received Time / Laterality Volume Impressions 07/14/2016 8:00 AM WOOL WASHER IMPRESSION: Cardiac device with tips in the right atrium and right ventricle. No pneumothorax. Blunting rig ht costophrenic angle by fluid or thickened pleura. Infiltrate or atele ctasis right lung base. YANCY VALLEJO MD Narrative 07/14/2016 8:00 AM WOOL WASHER XR CHEST 2 VW ??07/14/2016 7:47 AM HISTORY: ??Lead positioning. Procedure Note Yancy Vallejo MD - 07/14/2016F ormatting of this note might be different from the original. XR CHEST 2 VW 07/14/2016 7:47 AM HISTORY: Lead positioning. IMPRESSION: Cardiac device with tips in the right atrium and right ventricle. No pneumothorax. Blunting rig ht costophrenic angle by fluid or thickened pleura. Infiltrate or atele ctasis right lung base. YANCY VALLEJO MD Ke Reno MD IMG DIAGNOSTIC IMAGING ORDER S[place] (ABNORMAL) Glucose by meter (07/14/2016 7:37 AM WOOL WASHER) P athologist Signature Glucose 199 (H) 70 - 99 POINT OF CARE mg/dL TEST, GLUCOSE Specimen Anatomical Collection Method Collection Time Receive d Time (Source) Location / / Volume Laterality 07/14/2016 7:37 AM 7 7:45 WOOL WASHER AM WOOL WASHER Mitch BIRCH POCT Performing Organization Address City/[facility]/ZIP Code Phon e Number FV POINT OF CARE TEST, GLUCOSE POINT OF CARE TEST, GLUCOSE EP REPORT - HIM SCAN (07/14/2016 12:00 AM WOOL WASHER) Anatomical Region Laterality Modality Other Specimen (Source) Anatomical Location Collection Method / Collectio n Time Received Time / Laterality Volume 07/14/2016 Narrative This result has an attachment that is no t available. Provider Scan CV ELECTROPHYSIOLOGY ORDERAB LES (ABNORMAL) Glucose by meter (07/13/2016 8:58 PM WOOL WASHER) P athologist Signature Glucose 155 (H) 70 - 99 POINT OF CARE mg/dL TEST, GLUCOSE Specimen Anatomical Collection Method Collection Time Receive d Time (Source) Location / / Volume Laterality 07/13/2016 8:58 PM 7 9:25 WOOL WASHER PM WOOL WASHER Mitch BIRCH POCT Performing Organization Address [facility] Phon e Number FV POINT OF CARE TEST, GLUCOSE POINT OF CARE TEST, GLUCOSE (ABNORMAL) Glucose by meter (07/13/2016 5:50 PM WOOL WASHER) P athologist Signature Glucose 220 (H) 70 - 99 POINT OF CARE mg/dL TEST, GLUCOSE Specimen Anatomical Collection Method Collection Time Receive d Time (Source) Location / / Volume Laterality 07/13/2016 5:50 PM 7 5:55 WOOL WASHER PM WOOL WASHER Mitch BIRCH POCT Performing Organization Address City/[facility]/ZIP Code Phon e Number FV POINT OF CARE TEST, GLUCOSE POINT OF CARE TEST, GLUCOSE Echocardiogram Complete (07/13/2016 3:50 PM WOOL WASHER) Anatomical Region Laterality Modality Echocardiography Specimen (Source) Anatomical Collection Method Collection Time Re ceived Time Location / / Volume Laterality 07/13/2016 3:28 PM WOOL WASHER Narrative 07/14/2016 2:17 PM WOOL WASHER [id number] [facility] [id number]^ASHLY^MITCH^[facility] Echocardiography Laboratory [address] [place] [id number] Name: JANETH SIDDIQUI : 1935 Study Date: 07/13/2016 03:28 PM Age: 81 yrs Gender: Male Patient Location: [facility] Reason For Study: Complete AV block [...] venous pressure. The left ventricle is borderline dilated . There is no comparison study available. __ Left Ventricle The left ventricle is borderline dilated . There is normal left ventricular wall thickness. The visual ejection frac tion is estimated at 55-60%. Grade II or moderate diastolic dysfunction. Awilda l left ventricular wall motion. Right Ventricle The right ventricle is normal in structu re, function and size. There is a catheter/pacemaker lead seen in the righ t ventricle. Atria Normal left atrial size. Right atrial si ze is normal. Intact atrial septum. Mitral Valve The mitral valve is normal in structure and function. There is mild (1+) mitral regurgitation. Tricuspid Valve The tricuspid valve is normal in structu re and function. There is trace to mild tricuspid regurgitation. The right ventricular systolic pressure is approximated at 38mmHg plus the right at rial pressure. Aortic Valve The aortic valve is normal in structure and function. Pulmonic Valve The pulmonic valve is normal in structur e and function. There is trace pulmonic valvular regurgitation. Vessels Borderline aortic root dilatation. The a scending aorta is Mildly dilated. The IVC is normal in size and reactivity wit h respiration, suggesting normal central venous pressure. Pericardium The pericardium appears normal. Rhythm Appears to be an A sensed V paced rhythm . __ MMode/2D Measurements & Calculations IVSd: 1.0 [...] Medial E/e': 11.3 __ Report approved by: Angel Todd MD on 07/14/2016 02:17 PM Procedure Note Angel Todd MD - 07/14/2016Form atting of this note might be different from the original. [id number] [facility] [id number]^ASHLY^MITCH^[facility] Echocardiography Laboratory [address] [place] [address] Name: JANETH SIDDIQUI : 1935 Study Date: 07/13/2016 03:28 PM Age: 81 yrs Gender: Male Patient Location: [facility] Reason For Study: Complete AV block [...] venous pressure. The left ventricle is borderline dilated . There is no comparison study available. __ Left Ventricle The left ventricle is borderline dilated . There is normal left ventricular wall thickness. The visual ejection frac tion is estimated at 55-60%. Grade II or moderate diastolic dysfunction. Awilda l left ventricular wall motion. Right Ventricle The right ventricle is normal in structu re, function and size. There is a catheter/pacemaker lead seen in the righ t ventricle. Atria Normal left atrial size. Right atrial si ze is normal. Intact atrial septum. Mitral Valve The mitral valve is normal in structure and function. There is mild (1+) mitral regurgitation. Tricuspid Valve The tricuspid valve is normal in structu re and function. There is trace to mild tricuspid regurgitation. The right ventricular systolic pressure is approximated at 38mmHg plus the right at rial pressure. Aortic Valve The aortic valve is normal in structure and function. Pulmonic Valve The pulmonic valve is normal in structur e and function. There is trace pulmonic valvular regurgitation. Vessels Borderline aortic root dilatation. The a scending aorta is Mildly dilated. The IVC is normal in size and reactivity wit h respiration, suggesting normal central venous pressure. Pericardium The pericardium appears normal. Rhythm Appears to be an A sensed V paced rhythm . __ MMode/2D Measurements & Calculations IVSd: 1.0 [...] Medial E/e': 11.3 __ Report approved by: Angel Todd MD on 07/14/2016 02:17 PM Mitch Limon MD CV ECHO ORDERABLES EP Perm pacer dble lead (07/13/2016 2:28 PM WOOL WASHER) Anatomical Region Laterality Modality Radio Fluoroscopy Specimen (Source) Anatomical Location Collection Method / Collectio n Time Received Time / Laterality Volume Impressions 07/13/2016 2:43 PM WOOL WASHER IMPRESSION: 1. Successful dual chamber pacemaker imp lantation in left infraclavicular region above the pectora l fascia. 2. Bradycardia pacing set to DDDR 60-130 . RECOMMENDATIONS: 1. Avoid vascular access to the left jug ular and subclavian veins. 2. Keep wound clean, dry and covered for seven days. 3. PA and lateral chest x-ray to rule ou t dislodgement. 4. Device interrogation prior to dischar ge. 5. Left arm in sling overnight and then off in the morning. 6. May start oral medications. Avoid IV or subcutaneous heparin for at least two weeks. If heparin must be used , please contract the procedural team to discuss. 7. Wound care as follows: a) Do not get incision wet for three day s. b) Leave the Steri-Strips in place, allo w to come off naturally. If they do not come off in two weeks, you m ay remove them. c) Check incision daily and call if they notice one of the following: redness, drainage (pus or blood), swelli ng, warmth or if you develop fever. If you have questions regarding wound ca re, please contact our office. ? KE RENO MD Narrative 07/13/2016 2:43 PM WOOL WASHER PROCEDURES PERFORMED: 1. Conscious sedation. 2. Cardiac fluoroscopy. 3. Dual-chamber permanent pacemaker impl antation. INDICATION: Symptomatic bradycardia seco ndary to complete AV block. HPI: ??81-year-old male with a history o f diabetes, hypertension and dyslipidemia, who presents with fatigue and was found to have symptomatic bradycardia associated with third-degree heart block. ??No reversible causes were identified and he was referred for permanent pacemaker implantation. Risks and benefits of the procedure were reviewed including but not limited to arrhythmia, pain, infection, bleeding, skin damage from ionized radiation, kidney damage or yudy rgic reactions to conscious dye, injury to the neighboring vascular structures, need for emergent cardiopulmonary resuscitation, heart att ack, stroke or . Alternatives were discussed including do ing nothing. All questions were answered to the patient's satisfact ion. Informed consent was obtained and patient wished to proceed. SEDATION PROCEDURE: Sedatives were given by the nurse staff under my direct supervision. The patient received a total of 3 mg of Versed and 100 mcg of Fentanyl during procedure. ??Total sedation time was 47 min. Heart rate, blood pressure, oxygen saturation and patient responses were monitored throughout the procedure with the RN shara steele. DESCRIPTION OF PROCEDURE: After written informed consent was obtained, patient was brought to the EP lab. An in travenous infusion of prophylactic antibiotic was begun. The c hest was sterilely prepped from the level of iliac crest to level o f the chin with antibiotic soap and disinfectant, draped approprjc lei. Following infiltration with 1% lidocaine, an incision was made parallel to and 1 cm beneath the clavicle and extended across the del topectoral groove. Using blunt dissection, the excision was extended do wn the anterior pectoral fascia. Using blunt and sharp dissection , a pocket was developed parallel to the fascia and extended infe riorly. Two pocket punctures via fluoroscopy hailey ledesma and modified Seldinger technique was used to attain access into the left subclavian vein. A 7 [place]an sheath was inserted over the wire . The right ventricular lead was advanced under fluoroscopy and a sec ure location found. The lead was fixated. ??Stimulation and sensing t hresholds were found to be satisfactory. ??No diaphragmatic stimula tion was noticed with high output pacing. The lead was sutured to t he underlying pectoral muscle with interrupted 0 silk suture over a pl astic collar. A 7 [place] sheath was inserted over the wire. The r ight atrial lead was advanced under fluoroscopy and secure location fo und. The lead was fixated. Stimulation and sensing thresholds were found to be satisfactory. No diaphragmatic stimulation was noted with high output pacing. The lead was sutured to the underlying pectoral m uscle with interrupted 0 silk suture over a plastic collar. After irrigation with antibiotic solutio n, the pocket was inspected, no bleeding was seen. The generator was connected to the leads and inserted into the pocket. The wound was closed with two layers of subcutaneous sutures. Fluoroscopy time 0.7 minutes. PACEMAKER GENERATOR: Medtronic, model A2 DR01, serial #[id number]. LEAD INFORMATION: Right atrial lead: Medtronic, model 5076 /54, serial #[id number]. Right ventricular lead: Medtronic, model 5076/52, serial #[id number]. MEASURED DATA: Right atrial lead: Sensing 2.8 mV, ??thr eshold 0.8 volt at 0.5 msec, impedance 503 ohms. Right ventricular lead: Sensing 4.4 mV, threshold 0.6 volt at 0.5 msec, impedance 1329 ohms. Procedure Note Ke Reno MD - 07/13/2016For matting of this note might be different from the original. PROCEDURES PERFORMED: 1. Conscious sedation. 2. Cardiac fluoroscopy. 3. Dual-chamber permanent pacemaker impl antation. INDICATION: Symptomatic bradycardia seco ndary to complete AV block. HPI: 81-year-old male [...] damage from ionized radiation, kidney damage or yudy rgic reactions to conscious dye, injury to the neighboring vascular structures, need for emergent cardiopulmonary resuscitation, heart att ack, stroke or . Alternatives were discussed including do ing nothing. All questions were answered to the patient's satisfact ion. Informed consent was obtained and patient wished to proceed. SEDATION PROCEDURE: Sedatives were given by the nurse staff under my direct supervision. The patient received a total of 3 mg of Versed and 100 mcg of Fentanyl during procedure. Total sedation time wa s 47 min. Heart rate, blood pressure, oxygen saturation and patient responses were monitored throughout the procedure with the RN shara steele. DESCRIPTION OF PROCEDURE: After written informed consent was obtained, patient was brought to the EP lab. An in travenous infusion of prophylactic antibiotic was begun. The c hest was sterilely prepped from the level of iliac crest to level o f the chin with antibiotic soap and disinfectant, draped approprjc lei. Following infiltration with 1% lidocaine, an incision was made parallel to and 1 cm beneath the clavicle and extended across the del topectoral groove. Using blunt dissection, the excision was extended do wn the anterior pectoral fascia. Using blunt and sharp dissection , a pocket was developed parallel to the fascia and extended infe riorly. Two pocket punctures via fluoroscopy hailey baltazar and modified Seldinger technique was used to attain access into the left subclavian vein. A 7 [place]an sheath was inserted over the wire . The right ventricular lead was advanced under fluoroscopy and a sec ure location found. The lead was fixated. Stimulation and sensing thr esholds were found to be satisfactory. No diaphragmatic stimulati on was noticed with high output pacing. The lead was sutured to t he underlying pectoral muscle with interrupted 0 silk suture over a pl astic collar. A 7 [place] sheath was inserted over the wire. The r ight atrial lead was advanced under fluoroscopy and secure location fo und. The lead was fixated. Stimulation and sensing thresholds were found to be satisfactory. No diaphragmatic stimulation was noted with high output pacing. The lead was sutured to the underlying pectoral m uscle with interrupted 0 silk suture over a plastic collar. After irrigation with antibiotic solutio n, the pocket was inspected, no bleeding was seen. The generator was connected to the leads and inserted into the pocket. The wound was closed with two layers of subcutaneous sutures. Fluoroscopy time 0.7 minutes. PACEMAKER GENERATOR: Medtronic, model A2 DR01, serial #[id number]. LEAD INFORMATION: Right atrial lead: Medtronic, model 5076 /54, serial #[id number]. Right ventricular lead: Medtronic, model 5076/52, serial #[id number]. MEASURED DATA: Right atrial lead: Sensing 2.8 mV, thres hold 0.8 volt at 0.5 msec, impedance 503 ohms. Right ventricular lead: Sensing 4.4 mV, threshold 0.6 volt at 0.5 msec, impedance 1329 ohms. IMPRESSION: 1. Successful dual chamber pacemaker imp lantation in left infraclavicular region above the pectora l fascia. 2. Bradycardia pacing set to DDDR 60-130 . RECOMMENDATIONS: 1. Avoid vascular access to the left jug ular and subclavian veins. 2. Keep wound clean, dry and covered for seven days. 3. PA and lateral chest x-ray to rule ou t dislodgement. 4. Device interrogation prior to dischar ge. 5. Left arm in sling overnight and then off in the morning. 6. May start oral medications. Avoid IV or subcutaneous heparin for at least two weeks. If heparin must be used , please contract the procedural team to discuss. 7. Wound care as follows: a) Do not get incision wet for three day s. b) Leave the Steri-Strips in place, allo w to come off naturally. If they do not come off in two weeks, you m ay remove them. c) Check incision daily and call if they notice one of the following: redness, drainage (pus or blood), swelli ng, warmth or if you develop fever. If you have questions regarding wound ca re, please contact our office. KE RENO MD Maribell Myers MD CV ELECTROPHYSIOLOGY ORDERAB LES (ABNORMAL) Glucose by meter (07/13/2016 12:15 PM WOOL WASHER) athologist Signature Glucose 208 (H) 70 - 99 POINT OF CARE mg/dL TEST, GLUCOSE Specimen Anatomical Collection Method Collection Time Receive d Time (Source) Location / / Volume Laterality 07/13/2016 12:15 07/13/2016 PM WOOL WASHER 12:21 PM WOOL WASHER Mitch BIRCH POCT Performing Organization Address City/State/ZIP Code Phon e Number FV POINT OF CARE TEST, GLUCOSE POINT OF CARE TEST, GLUCOSE (ABNORMAL) Glucose by meter (07/13/2016 8:08 AM WOOL WASHER) athologist Signature Glucose 230 (H) 70 - 99 POINT OF CARE mg/dL TEST, GLUCOSE Specimen Anatomical Collection Method Collection Time Receive d Time (Source) Location / / Volume Laterality 07/13/2016 8:08 AM 7 8:16 WOOL WASHER AM WOOL WASHER Mitch BIRCH POCT Performing Organization Address City/State/ZIP Code Phon e Number FV POINT OF CARE TEST, GLUCOSE POINT OF CARE TEST, GLUCOSE INR (07/13/2016 5:30 AM WOOL WASHER) athologist Signature INR 1.10 0.86 - 1.14 [facility] Specimen Anatomical Collection Method Collection Time Receive d Time (Source) Location / / Volume Laterality Blood specimen 07/13/2016 5:30 AM 017 5:44 (specimen) WOOL WASHER AM WOOL WASHER Maribell Myers MD LAB - BLOOD ORDERABLES Performing Organization Address City/State/ZIP Code Phon e Number M [facility] [address] [place] [address] [phone] [facility] [address] [place] [address], [place] [phone] (ABNORMAL) CBC with platelets (07/13/2016 5:30 AM WOOL WASHER) Analysis Performed At Patho logist Time Signature WBC 9.2 4.0 - 11.0 [place] 10e9/L [facility] RBC Count 4.01 (L) 4.4 - 5.9 [place] 10e12/L [facility] Hemoglobin 11.9 (L) 13.3 - [place] 17.7 g/dL [facility] Hematocrit 33.9 (L) 40.0 - [place] 53.0 % [facility] MCV 85 78 - 100 [facility] MCH 29.7 26.5 - [place] 33.0 pg [facility] MCHC 35.1 31.5 - [place] 36.5 g/dL [facility] RDW 13.1 10.0 - [place] 15.0 % [facility] Platelet Count 228 150 - 450 [place] 10e9/L [facility] Specimen Anatomical Collection Method Collection Time Receive d Time (Source) Location / / Volume Laterality Blood specimen 07/13/2016 5:30 AM 017 5:44 (specimen) WOOL WASHER AM WOOL WASHER Maribell Myers MD LAB - BLOOD ORDERABLES Performing Organization Address City/State/ZIP Code Phon e Number M [facility] [address] [phone] [facility] [address] [place] [address], [place] [phone] (ABNORMAL) Hemoglobin A1c (07/13/2016 5:30 AM WOOL WASHER) P athologist Signature Hemoglobin A1C 7.8 (H) 4.3 - 6.0 [facility] Specimen Anatomical Collection Method Collection Time Receive d Time (Source) Location / / Volume Laterality Blood specimen 07/13/2016 5:30 AM 017 5:44 (specimen) WOOL WASHER AM WOOL WASHER Mitch Limon MD LAB - BLOOD ORDERABLES Performing Organization Address City/State/ZIP Code Phon e Number M [facility] [address] [place] [address] [phone] [facility] [address] [place] [address], [place] [phone] (ABNORMAL) Basic metabolic panel (07/13/2016 5:30 AM WOOL WASHER) athologist Signature Sodium 138 133 - 144 [place] mmol/L [facility] Potassium 4.9 3.4 - 5.3 [place] mmol/L [facility] Chloride 105 94 - 109 [place] mmol/L [facility] Carbon Dioxide 25 20 - 32 [place] mmol/L [facility] Anion Gap 8 3 - 14 [place] mmol/L [facility] Glucose 197 (H) 70 - 99 [place] mg/dL [facility] Urea Nitrogen 29 7 - 30 [place] mg/dL [facility] Creatinine 1.23 0.66 - [place] 1.25 mg/dL [facility] GFR Estimate 57 (L) >60 [place] mL/min/1.[address] Comment: Non GFR Calc GFR Estimate If Black 69 >60 mL/min/1.7m2 [facility] Comment: GFR Calc Calcium 8.0 (L) 8.5 - 10.1 mg/dL [facility] Specimen Anatomical Collection Method Collection Time Receive d Time (Source) Location / / Volume Laterality Blood specimen 07/13/2016 5:30 AM 017 5:44 (specimen) WOOL WASHER AM WOOL WASHER Mitch Limon MD LAB - BLOOD ORDERABLES Performing Organization Address City/State/ZIP Code Phon e Number M [facility] [address] [id number] [facility] [address] [place] [address], [place] [phone] (ABNORMAL) Glucose by meter (07/13/2016 2:08 AM WOOL WASHER) P athologist Signature Glucose 184 (H) 70 - 99 POINT OF CARE mg/dL TEST, GLUCOSE Specimen Anatomical Collection Method Collection Time Receive d Time (Source) Location / / Volume Laterality 07/13/2016 2:08 AM 7 2:16 WOOL WASHER AM WOOL WASHER Mitch Limon MD LAB - BEAKER POCT Performing Organization Address City/State/ZIP Code Phon e Number [facility] POINT OF CARE TEST, GLUCOSE POINT OF CARE TEST, GLUCOSE (ABNORMAL) Glucose by meter (07/12/2016 9:15 PM WOOL WASHER) P athologist Signature Glucose 152 (H) 70 - 99 POINT OF CARE mg/dL TEST, GLUCOSE Specimen Anatomical Collection Method Collection Time Receive d Time (Source) Location / / Volume Laterality 07/12/2016 9:15 PM 7 9:31 WOOL WASHER PM WOOL WASHER Mitch BARON - [place] POCT Performing Organization Address City/State/ZIP Code Phon e Number [facility] POINT OF CARE TEST, GLUCOSE POINT OF CARE TEST, GLUCOSE (ABNORMAL) Glucose by meter (07/12/2016 5:14 PM WOOL WASHER) P athologist Signature Glucose 244 (H) 70 - 99 POINT OF CARE mg/dL TEST, GLUCOSE Specimen Anatomical Collection Method Collection Time Receive d Time (Source) Location / / Volume Laterality 07/12/2016 5:14 PM 7 5:25 WOOL WASHER PM WOOL WASHER Mitch [place]ON - [place] POCT Performing Organization Address City/State/ZIP Code Phon e Number [facility] POINT OF CARE TEST, GLUCOSE POINT OF CARE TEST, GLUCOSE (ABNORMAL) Glucose by meter (07/12/2016 2:37 PM WOOL WASHER) P athologist Signature Glucose 222 (H) 70 - 99 POINT OF CARE mg/dL TEST, GLUCOSE Specimen Anatomical Collection Method Collection Time Receive d Time (Source) Location / / Volume Laterality 07/12/2016 2:37 PM 7 2:40 WOOL WASHER PM WOOL WASHER Mitch Limon MD LAB - BEAKER POCT Performing Organization Address City/State/ZIP Code Phon e Number FV POINT OF CARE TEST, GLUCOSE POINT OF CARE TEST, GLUCOSE EKG 12-lead, tracing only (07/12/2016 1:21 PM WOOL WASHER) [facility] gist Method Time Signature Interpretation ECG Click View RADIOLOGY Image link RESULTS to view waveform and result Specimen (Source) Anatomical Collection Method Collection Time Re ceived Time Location / / Volume Laterality 07/12/2016 1:21 PM WOOL WASHER Maribell Myers MD ECG ORDERABLES Performing Organization Address City/State/ZIP Code Phon e Number RADIOLOGY RESULTS documented in this encounter Visit Diagnoses Diagnosis 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 Pre-procedurally for CAR electrophysiology studies., Cardiac Pre-procedure, Starting on Wed07/13/16 at 0500, Until Wed07/13/16 at 1441 0.9% sodium chloride infusion New Bag 07/13/2016 7:57 PM WOOL WASHER 75 mL/hr at 75 mL/hr, Intravenous, CONTINUOUS, Starting on Wed07/12/16 at 1315, Until Wed07/14/16 at 1820 New Bag 07/13/2016 4:18 AM WOOL WASHER 75 mL/hr Rate/Dose Verify 07/12/2016 4:00 PM WOOL WASHER 75 mL/hr atorvastatin (LIPITOR) tablet 40 mg Given 07/13/2016 7:57 PM WOOL WASHER 40 mg 40 mg, Oral, EVERY EVENING, First dose on Wed07/12/16 at 2000 Given 07/12/2016 8:25 PM WOOL WASHER 40 mg bacitracin in 0.9% NaCl 500 mL Given by Other 07/13/2016 2:15 PM 25,0 00 Units irrigation 25,000 Units WOOL WASHER ONCE PRN, for pacemaker/defibrillator pocket antibiotic irrigation. , Starting on Wed07/13/16 at 1342, For 1 dose, Irrigate pacemaker/defibrillator pocket when verbally ordered by provider during procedure., Cardiac Intra-procedure bicalutamide (CASODEX) tablet 50 mg Given 07/14/2016 2:05 PM WOOL WASHER 50 mg 50 mg, Oral, DAILY, First dose on Wed07/12/16 at 1400, Administer at the same time every day. Given 07/13/2016 3:05 PM WOOL WASHER 50 mg Given 07/12/2016 2:58 PM WOOL WASHER 50 mg bupivacaine HCl 0.25 % injection Given by Other 07/13/2016 1:56 PM CS T 10 mLs SOLN 25-75 mg 25-75 mg (10-30 mL), Intradermal, ONCE PRN, for local anesthesia as verbally ordered by provider during the procedure., Starting on Wed07/13/16 at 1342, For 1 dose, The provider administers the medication. Dose may be into smaller doses for administration. To be mixed with lidocaine 1%, Cardiac Intra-procedure ceFAZolin (ANCEF) 1 g vial to attach to NS 100 New Bag 0 07/13/2016 1:43 PM WOOL WASHER 2 g ml bag for ADULT or 50 ml bag for PEDS Routine, 2 g, Intravenous, PRE-OP/PRE-PROCEDURE, Starting on Wed07/13/16 at 1343, For 1 dose, Indications: Perioperative Pharmacoprophylaxis ceFAZolin sodium-dextrose (ANCEF) infusi on 2 g Given 07/14/2016 8:32 AM WOOL WASHER 2 g Routine, 2 g, Intravenous, EVERY 8 HOURS, First dose on Wed07/14/16 at 0030, For 3 doses, First dose 8 hrs after last dose in labor and employment paralegal. Stop within 24hrs after labor and employment paralegal end-time. Post-procedurally for CAR electrophysiology studies., Indications: Perioperative Pharmacoprophylaxis, Cardiac Post-procedure Given 07/14/2016 1:27 AM WOOL WASHER 2 g fentaNYL Citrate (PF) (SUBLIMAZE) injection Given 07/13/2016 1:54 PM WOOL WASHER 50 mcg 25-50 mcg 25-50 mcg, Intravenous, EVERY 2 MIN PRN, severe pain, when verbally ordered by the provider during the procedure, Starting on Wed07/13/16 at 1342, Doses can be exceeded under direct oversight of patient by physician., Cardiac Intra-procedure Given 07/13/2016 1:43 PM WOOL WASHER 50 mcg glipiZIDE (GLUCOTROL) tablet 5 mg Given 07/12/2016 2:58 PM WOOL WASHER 5 mg 5 mg, Oral, ONCE, On 07/12/16 at 1330, For 1 dose, Take before or with meals. insulin aspart (NovoLOG) inj (RAPID ACTI NG) Given 07/13/2016 5:56 PM WOOL WASHER 2 Units 1-7 Units, Subcutaneous, 3 TIMES DAILY BEFORE MEALS, First dose on 07/12/16 at 1315, Correction Scale - MEDIUM INSULIN RESISTANCE DOSING Do Not give Correction Insulin if Pre-Meal BG less than 140. For Pre-Meal BG 140 - 189 give 1 unit. For Pre-Meal BG 190 - 239 give 2 units. For Pre-Meal BG 240 - 289 give 3 units. For Pre-Meal BG 290 - 339 give 4 units. For Pre-Meal BG 340- 399 give 5 units. For Pre-Meal BG 400-449 give 6 units For Pre-Meal BG greater than or equal to 450 give 7 units. To be given with prandial insulin, and based on pre-meal blood glucose. Notify provider if glucose greater than or equal to 350 mg/dL after administration of correction dose. If given at mealtime, must be administered 5 min before meal or immediately after. Given 07/13/2016 8:32 AM WOOL WASHER 2 Units Given 07/12/2016 5:51 PM WOOL WASHER 3 Units lidocaine (PF) (XYLOCAINE) 1 % Given by Other 07/13/2016 1:56 PM WOOL WASHER 100 mg injection 100-300 mg 100-300 mg (10-30 mL), Intradermal, ONCE PRN, for local anesthesia as verbally ordered by provider during the procedure., Starting on 07/13/16 at 1342, For 1 dose, The provider administers the medication. Dose may be into smaller doses for administration. To be mixed with bupivacaine 0.25%., Cardiac Intra-procedure lisinopril (PRINIVIL/ZESTRIL) tablet 10 mg Given 07/14/2016 8:31 AM WOOL WASHER 10 mg 10 mg, Oral, DAILY, First dose on 07/12/16 at 1315 Given 07/13/2016 8:32 AM WOOL WASHER 10 mg Given 07/12/2016 4:10 PM WOOL WASHER 10 mg midazolam (VERSED) injection 0.5-2 mg Given 07/13/2016 1:58 PM WOOL WASHER 1 mg 0.5-2 mg, Intravenous, EVERY 2 MIN PRN, sedation, when verbally ordered by the provider during the procedure, Starting on Wed07/13/16 at 1342, Doses can be exceeded under direct oversight of patient by physician., Cardiac Intra-procedure Given 07/13/2016 1:54 PM WOOL WASHER 1 mg Given 07/13/2016 1:43 PM WOOL WASHER 1 mg sodium chloride (PF) 0.9% PF flush 3 mL Given 07/14/2016 8:31 AM WOOL WASHER 3 mLs 3 mL, Intracatheter, EVERY 8 HOURS, First dose on Wed07/14/16 at 0600, And Q1H PRN, to lock peripheral IV dormant line., Cardiac Post-procedure documented in this encounter Active and Recently Administered Medications Times are shown in WOOL WASHER. Scheduled Medication Order 07/12/2016 07/13/2016 07/14/2016 atorvastatin (LIPITOR) tablet 40 mg (CANCELED) 2024 (G iven - Provider: Rj Caldwell RN) 1957 (Given - Provider: Lenin Ragland, TYSHAWN) 40 mg, Oral, EVERY EVENING, First dose on Wed07/12/16 at 2000 bicalutamide (CASODEX) tablet 50 mg (CANCELED) 1458 (G iven - Provider: Deysi Escamilla, TYSHAWN) 1505 (Given - Provider: Lenin Ragland, TYSHAWN) 1405 ( Given - Provider: Lilly Tanner, TYSHAWN) 50 mg, Oral, DAILY, First dose on Wed at 1400, Administer at the same time every day. ceFAZolin (ANCEF) 1 g vial to attach to NS 100 ml bag for ADULT or 50 ml bag for PEDS (COMPLETED) 1343 (New Bag - Provider: Anahi Arana , RN) Routine, 2 g, Intravenous, PRE-OP/PRE-PA OCEDURE, Starting on Wed07/13/16 at 1343, For 1 dose, Indications: Perioperative Pharmacoprophylaxis ceFAZolin sodium-dextrose (ANCEF) infusion 2 g (CANCELED) 0127 (Given - Provider: Ximena Guerra, TYSHAWN)0832 (Given - Provider: Lilly Tanner, TYSHAWN) Routine, 2 g, Intravenous, EVERY 8 HOURS , First dose on Wed07/14/16 at 0030, For 3 doses, First dose 8 hrs after last dose in labor and employment paralegal. Stop within 24hrs after labor and employment paralegal end-time. Post-procedurally for C AR electrophysiology studies., Indicatio ns: Perioperative Pharmacoprophylaxis, Cardiac Post-procedure glipiZIDE (GLUCOTROL) tablet 5 mg (COMPLETED) 1458 (Gi juancho - Provider: Deysi Escamilla, RN) 5 mg, Oral, ONCE, On 07/12/16 at 1330 , For 1 dose, Take before or with meals. insulin aspart (NovoLOG) inj (RAPID ACTING) (CANCELED) 1456 (Given - Provider: Deysi Escamilla, TYSHAWN)1751 (Given - Provider: Rj Caldwell RN - Comment: BGM 244) 0832 (Given - Provider: Lenin Ragland RN)1331 (Not Given - Provider: Lenin Ragland RN - Reason: Patient not available)1756 (Given - Provider: Lenin Ragland RN) 1113 (Not Given - Provider: Lilly pepe RN - Reason: Patient/family refused - Comment: Taking diabetic med when home)1343 (Not Given - Provider: Lilly Tanner RN - Reason: Patient/family refused - Comment: Taking diabetic med at home) 1-7 Units, Subcutaneous, 3 TIMES DAILY B EFORE MEALS, First dose on 07/12/16 at 1315, Correction Scale - MEDIUM INSULIN RESISTANCE DOSING Do Not give Correction Insulin if Pre-Meal BG less than 140. F or Pre-Meal BG 140 - 189 give 1 unit. Fo r Pre-Meal BG 190 - 239 give 2 units. For Pre-Meal BG 240 - 289 give 3 units. For Pre-Meal BG 290 - 339 give 4 units. For Pre-Meal BG 340- 399 give 5 units. For P re-Meal BG 400-449 give 6 units For Pre- Meal BG greater than or equal to 450 give 7 units. To be given with prandial insulin, and based on pre-meal blood glucose. Notify provider if glucose greater than or equal to 350 mg/dL after administrat ion of correction dose. If given at mealtime, must be administered 5 min before meal or immediately after. lisinopril (PRINIVIL/ZESTRIL) tablet 10 mg (CANCELED) 1610 (Given - Provider: Rj Caldwell RN) 0832 (Given - Provider: Lenin Ragland RN) 0831 ( Given - Provider: Lilly Tanner, TYSHAWN) 10 mg, Oral, DAILY, First dose on Wed07/12/16 at 1315 sodium chloride (PF) 0.9% PF flush 3 mL (CANCELED) 0600 (Not Given - Provider: Ximena Guerra RN - Reason: IV Infusing)0831 (Given - Provider: Lilly Tanner, TYSHAWN)1405 (Not Given - Provider: Lilly Tanner RN - Reason: Other - Comment: discharging) 3 mL, Intracatheter, EVERY 8 HOURS, Firs t dose on Wed07/14/16 at 0600, And Q1H PRN, to lock peripheral IV dormant line., Cardiac Post-procedure Continuous Medication Order 07/12/2016 07/13/2016 07/14/2016 0.45% sodium chloride infusion (CANCELED) 0600 (Canceled Entry - Provider: Rj Caldwell RN - Comment: we hang 2 hours pre-procedure)0828 (New Bag - Provider: Lenin Ragland RN) at 30 mL/hr, Intravenous, CONTINUOUS, St art 2 hours pre-procedure and then per provider direction intra-procedure. Pre-procedurally for CAR electrophysiology studies., Cardiac Pre-procedure, Starting on Wed07/13/16 at 0500, Until Wed07/13/16 at 1441 0.9% sodium chloride infusion (CANCELED) 1431 (New Bag - Provider: Deysi Escamilla RN)1600 (Rate/Dose Verify - Provider: Rj Caldwell RN) 0418 (New Bag - Provider: Rj Caldwell RN)1957 (New Bag - Provider: Lenin Ragland RN) at 75 mL/hr, Intravenous, CONTINUOUS, St arting on Wed07/12/16 at 1315, Until Wed07/14/16 at 1820 PRN Medication Order 07/12/2016 07/13/2016 07/14/2016 bacitracin in 0.9% NaCl 500 mL irrigation 25,000 Units (COMP LETED) 1415 (Given by Other - Provider: Anahi Arana RN) ONCE PRN, for pacemaker/defibrillator po cket antibiotic irrigation. , Starting on Wed07/13/16 at 1342, For 1 dose, Irrigate pacemaker/defibrillator pocket when verbally ordered by provider during procedure., Cardiac Intra-procedure bupivacaine HCl 0.25 % injection SOLN 25-75 mg (COMPLETED) 1356 (Given by Other - Provider: Anahi Arana RN) 25-75 mg (10-30 mL), Intradermal, ONCE P RN, for local anesthesia as verbally ordered by provider during the procedure., Starting on Wed07/13/16 at 1342, For 1 dose, The provider administers the medicati on. Dose may be into smaller d oses for administration. To be mixed with lidocaine 1%, Cardiac Intra-procedure fentaNYL Citrate (PF) (SUBLIMAZE) injection 25-50 mcg (CANCE LED) 1343 (Given - Provider: Anahi Arana RN)1354 (Given - Provider: Anahi Arana RN) 25-50 mcg, Intravenous, EVERY 2 MIN PRN, severe pain, when verbally ordered by the provider during the procedure, Starting on Wed07/13/16 at 1342, Doses can be exceeded under direct oversight of patient by physician., Cardiac Intra-procedure lidocaine (PF) (XYLOCAINE) 1 % injection 100-300 mg (COMPLET ED) 1356 (Given by Other - Provider: Anahi Arana RN) 100-300 mg (10-30 mL), Intradermal, ONCE PRN, for local anesthesia as verbally ordered by provider during the procedure., Starting on Wed07/13/16 at 1342, For 1 dose, The provider administers the medica tion. Dose may be into smaller doses for administration. To be mixed with bupivacaine 0.25%., Cardiac Intra-procedure midazolam (VERSED) injection 0.5-2 mg (CANCELED) 1343 (Given - Provider: Anahi Arana RN)1354 (Given - Provider: Anahi Arana, TYSHAWN)1358 (Given - Provider: Anahi Arana RN) 0.5-2 mg, Intravenous, EVERY 2 MIN PRN, sedation, when verbally ordered by the provider during the procedure, Starting on Wed07/13/16 at 1342, Doses can be exceeded under direct oversight of patient by physician., Cardiac Intra-procedure documented in this encounter Care Teams Relief Man Relationship Specialty Start Date End Date Christian Steiner MD PCP - General Internal Medicine 08/30/12 Christian Steiner MD PCP - Assigned PCP 08/11/1208/16/18 Christian Steiner MD Assigned PCP 08/11/12 02/22/21 documented as of this encounter
--- OUTSIDE RECORDS SUMMARY | 2022-04-27 07:38 | XMS_ITS | Encounter Summary ---
:1935 Author Organization [facility] Address [address] [facility] [place] [address] Care Team Providers Name Role Phone Christian Steiner MD Primary Care Provider Unavailable Christian Steiner MD Unavailable Unavailable Christian Steiner MD Unavailable Unavailable Encounter Details Date Type Department Care Team Description 09/07/[address] [facility] Urology Ma lignant tumor of Clinic [place] Echo carcamo prostate (H) (Primary Dx) [address] [place] [address] Social History Tobacco Use Types Packs/Day Years Used Date Smoking Tobacco: Former Cigarettes Quit : 02/29/1980 Smokeless Tobacco: Never Alcohol Use Standard Drinks/Week Comments Yes 0 (1 standard drink = 0.6 oz pure alcoho l) occasionally Sex Assigned at Date Recorded Not on file documented as of this encounter Miscellaneous Notes Addendum Note - Moni Martinez - 09/07/2016 1:30 PM CDT Addended by: MONI MARTINEZ on: 09/07/2016 01:30 PM Modules accepted: Orders documented in this encounter Plan of Treatment Upcoming Encounters Date Type Specialty Care Team Description 06/18/2022 Ancillary Procedure Cardiology Abdi Bailey MD [address] [place] [id number] (Wo rk) documented as of this encounter Procedures Procedure Name Priority Date/Time Associated Diagnosis Comme nts PSA DIAG UROLOGIC Routine 09/07/2016 1:35 PM Malignant tumor o f Results for this PHYS CDT prostate (H) procedure are i n the results section. documented in this encounter Results PSA Diag Urologic Phys (09/07/2016 1:35 PM CDT) Component Value Ref Test Analysis Performed At [facility] gist Range Method Time Signature PSA Diag <0.04 0.00 - [place] Urologic Test performed by chemiluminescent immun oassay using [employer] FastPack 4.00 UROLOGIC Phys ng/mL [facility] Specimen Anatomical Collection Method Collection Time Receive d Time (Source) Location / / Volume Laterality Blood specimen 09/07/2016 1:35 PM 017 1:36 (specimen) CDT PM CDT Humberto Good MD LAB - BLOOD ORDERABLES Performing Organization Address City/State/ZIP Code Phon e Number [place] [address] [phone] CLIN[address] documented in this encounter Visit Diagnoses Diagnosis Malignant tumor of prostate (H) - Primar y Malignant neoplasm of prostate documented in this encounter Care Teams Drawing Kiln Operator Relationship Specialty Start Date End Date Christian Steiner MD PCP - General Internal Medicine 08/30/12 Christian Steiner MD PCP - Assigned PCP 08/11/1208/16/18 Christian Steiner MD Assigned PCP 08/11/12 02/22/21 documented as of this encounter
--- OUTSIDE RECORDS SUMMARY | 2022-04-27 07:38 | XMS_ITS | Encounter Summary ---
:1935 Author Organization [facility] Address [address] [place] [address] Care Team Providers Name Role Phone Christian Steiner MD Primary Care Provider Unavailable Christian Steiner MD Unavailable Unavailable Christian Steiner MD Unavailable Unavailable Reason for Referral Consultation - Closed Specialty Diagnoses / Procedures Referred By Contact Refer red To Contact Diagnoses Benign paroxysmal positional vertigo, unspecified laterality Christian Steiner MD [facility] DIZZY & [address] [place] [phone] [place] [address], [address] [place] [address] Phone: Fax: Referral ID Status Reason Start Date Expiration Date Visits Requ ested Visits Authorized [id number] Closed 04/21/2017 04/21/2018 1 1 ODITY SUPERVISOR Reason for Visit Reason Comments Dizziness Encounter Details Date Type Department Care Team Description 04/21/2017 Office Visit [facility] Christian Steiner pa roxysmal positional vertigo, unspecified laterality (Primary Dx); Clinic Smiley Arellano MD Type 2 diabetes mellitus without complication, without long-term current use of insulin (H); [facility] Hypertension goal BP (blood pressure) < 140/[address] [place] [phone] Social History Tobacco Use Types Packs/Day [...] Sign Reading Time Taken Comments Blood Pressure 124/62 04/21/2017 4:14 PM COMMODITY SUPERVISOR Pulse 76 04/21/2017 4:14 PM COMMODITY SUPERVISOR Temperature 36.6 ??C (97.9 ??F) 04/21/2017 4:14 PM COMMODITY SUPERVISOR Respiratory Rate 20 04/21/2017 4:14 PM COMMODITY SUPERVISOR Oxygen Saturation 97% 04/21/2017 4:14 PM COMMODITY SUPERVISOR Inhaled Oxygen Concentration - - Weight 94.8 kg (209 lb) 04/21/2017 4:14 PM COMMODITY SUPERVISOR Height 182.9 cm (6') 04/21/2017 4:14 PM COMMODITY SUPERVISOR Body Mass Index 28.35 04/21/2017 4:14 PM COMMODITY SUPERVISOR documented in this encounter Patient Instructions Patient InstructionsChristian Steiner MD - 04/21/2017 4:15 PM CST As we discussed, make an appointment at [facility]. I will let you know your lab results. ODITY SUPERVISOR documented in this encounter Progress Notes Christian Steiner MD - 04/21/2017 4:15 PM CST SUBJECTIVE: Humberto Siddiqui is a 81 year old male who presents to clinic today for the following health issues: Dizziness Onset: 04/19/2017 ?? Description: Do you feel faint: YES Does it feel like the surroundings (bed, room) are moving: YES Unsteady/off balance: YES Have you passed out or fallen: no ?? Intensity: mild ?? Progression of Symptoms: same ?? Accompanying Signs & Symptoms: Heart palpitations: no Nausea, vomiting: no Weakness in arms or legs: no Fatigue: no Vision or speech changes: no Ringing in ears (Tinnitus): no Hearing Loss: no ?? History: Head trauma/concussion hx: no Previous similar symptoms: no Recent bleeding history: no ?? Precipitating factors: Worse with activity or head movement: thinks so, but not sure? Any new medications (BP?): no Alcohol/drug abuse/withdrawal: no ?? Alleviating factors: Does staying in a fixed position give relief: YES Therapies Tried and outcome: nothing Patient is here with his . Over the past few days, he has had 2 brief spells mild vertigo. On one occasion, he was bending over to work on his lawnmower with his head turned to the left, and felt a spinning sensation which only lasted a short while. At times he feels just a very vague sense of uns teadiness with movement. No headache, tinnitus, hearing loss, or visual disturbance. He has not noted hypoglycemia. His glipizide dose is 5 mg per day. No symptoms of orthostasis. He has a pacemaker, and pacemaker function has been checked recently. He is due for lab work. Problem list and histories reviewed & adjusted, as indicated. Patient Active Problem List Diagnosis Date Noted ??? 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 ? H/O tobacco use, presenting hazards to health 09/05/2013 Priority: High Quit 1979. In 03/25, CT abd shows no AAA ? ? Hypertension goal BP (blood pressure) < 140/90 02/28/2013 Priority: High Add lisinopril 02/24 ??? Malignant neoplasm of prostate (H) Priority: High Prostate cancer; radioactive seeds ; Dr. Mckee;PSA 8.6 in 04/25; casodex in 2012. Stable in 11/26and in 02/27 ; < 0.04 in 08/28; Dr Good and in 02/28 ??? Type 2 diabetes mellitus without complication (H) 04/21/2011 Priority: High Class: Chronic DX approx 2002 per pt ??? History of colonic polyps 03/17/2016 Priority: [...] Back Mass, and Right Back Mass; Surgeon: Abdirashdi King MD; Location: [facility] OR ??? GENITOURINARY SURGERY prostate ??? IMPLANT PACEMAKER 06/2016 ??? PROSTATE SURGERY Social History Social History ??? Marital status: Spouse name: Rita Vargas ??? Number of children: 3 ??? 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 Smoking status: Former Smoker Quit date: 02/29/1980 ??? Smokeless tobacco: Never Used ??? Alcohol use Yes Comment: occasionally ??? Drug use: No ??? Sexual activity: Yes Partners: Female Other Topics Concern ??? Not on file Social History Narrative has diabetes also Current Outpatient Prescriptions Medication Sig Dispense Refill ??? metFORMIN (GLUCOPHAGE) 1000 MG tablet TAKE 1 TABLET BY MOUTH TWICE DAILY 60 tablet 0 ??? lisinopril (PRINIVIL/ZESTRIL) 10 MG tablet TK 1 T PO D 1 ??? glipiZIDE (GLUCOTROL) 5 MG tablet TAKE 1 TABLET(5 MG) BY MOUTH DAILY 90 tablet 0 ??? bicalutamide (CASODEX) 50 MG tablet Take 1 tablet (50 mg) by mouth daily 90 tablet 2 ??? ACCU-CHEK FRANCISCO PLUS test strip USE TO TEST EVERY DAY DIRECTED 100 strip 9 ??? atorvastatin (LIPITOR) 40 MG tablet Take [...] Take 1 tablet by mouth daily. ??? aspirin 81 MG tablet Take 1 tablet by mouth daily. ??? Multiple Vitamin (DAILY MULTIVITAMIN PO) Take 1 tablet by mouth daily ??? Co-Enzyme Q-10 10 MG CAPS Take 1 capsule by mouth daily Dose of capsule unknown. ??? lisinopril (PRINIVIL/ZESTRIL) 20 MG tablet Take 1 tablet (20 mg) by mouth daily (Patient not taking: Reported on 04/21/2017) 90 tablet 3 No Known Allergies BP Readings from Last 3 Encounters: 04/21/17 124/62 03/09/17 132/66 07/21/16 138/78 Wt Readings from Last 3 Encounters: 04/21/17 209 lb (94.8 kg) 03/09/17 215 lb (97.5 kg) 09/08/16 215 lb (97.5 kg) Reviewed and updated as needed this visit by clinical staff Reviewed and updated as needed this visit by Provider ROS: CONSTITUTIONAL:NEGATIVE for fever, chills, change in weight ENT/MOUTH: NEGATIVE for hoarse voice and sinus pressure RESP:NEGATIVE for significant cough or SOB CV: NEGATIVE for chest pain, palpitations or peripheral edema NEURO: NEGATIVE for dysarthria, gait disturbance, memory problems and numbness or tingling OBJECTIVE: BP 124/62 (BP Location: Right arm, Patient Position: Chair, Cuff Size: Adult Large) Pulse 76 Temp 97.9 ??F (36.6 ??C) Resp 20 Ht 6' (1.829 m) Wt 209 lb (94.8 kg) SpO2 97% BMI 28.35 kg/m2 Body mass index is 28.35 kg/(m^2). GENERAL APPEARANCE: healthy, alert and no distress HENT: ear canals and TM's normal, nose and mouth without ulcers or lesions and with the patient supine, and his head turned to the left, he developed symptoms of vertigo with extraocular movements, butnot with his head turned to the right. CV: regular rates and rhythm, normal S1 S2, no S3 or S4 and no murmur, click or rub NEURO: Normal strength and tone, mentation intact, speech normal, DTR symmetrically normal in upper and lower extremities, gait normal and Romberg negative Diagnostic test results: Pending ASSESSMENT/PLAN: ICD-10-CM 1. Benign paroxysmal positional vertigo, unspecified laterality H81.10 NEUROLOGY ADULT REFERRAL 2. Type 2 diabetes mellitus without complication, without long-term current use of insulin (H) E11.9Comprehensive metabolic panel (BMP + Alb, Alk Phos, ALT, AST, Total. Bili, TP) Hemoglobin A1c Albumin Random Urine Quantitative with Creat Ratio We discussed his situation at length. He has symptoms suggesting mild BPPV. For further evaluation and treatment, a referral is indicated. He is also due for lab work to monitor his diabetes control etc. Patient Instructions As we discussed, make an appointment at the [facility]. I will let you know your lab results. Christian Steiner MD [facility] Results for orders placed or performed in visit on 04/21/17 Comprehensive metabolic panel (BMP + Alb, Alk Phos, ALT, AST, Total. Bili, TP) Result Value Ref Range Sodium 135 133 - 144 mmol/L Potassium 4.4 3.4 - 5.3 mmol/L Chloride 100 94 - 109 mmol/L Carbon Dioxide 24 20 - 32 mmol/L Anion Gap 11 3 - 14 mmol/L Glucose 167 (H) 70 - 99 mg/dL Urea Nitrogen 32 (H) 7 - 30 mg/dL Creatinine 1.22 0.66 - 1.25 mg/dL GFR Estimate 57 (L) >60 mL/min/1.7m2 GFR Estimate If Black 69 >60 mL/min/1.7m2 Calcium 9.4 8.5 - 10.1 mg/dL Bilirubin Total 0.4 0.2 - 1.3 mg/dL Albumin 4.1 3.4 - 5.0 g/dL Protein Total 7.3 6.8 - 8.8 g/dL Alkaline Phosphatase 93 40 - 150 U/L ALT 24 0 - 70 U/L AST 20 0 - 45 U/L Hemoglobin A1c Result Value Ref Range Hemoglobin A1C 7.5 (H) 4.3 - 6.0 % Albumin Random Urine Quantitative with Creat Ratio Result Value Ref Range Creatinine Urine 158 mg/dL Albumin Urine mg/L 10 mg/L Albumin Urine mg/g Cr 6.14 0 - 17 mg/g Cr Letter sent. Most of your lab results are good. Keep taking the same medicines. Your diabetes control is adequate. The A1C of 7.5 correlates to an average blood sugar of approximately 165. The mild elevation in urea nitrogen and creatinine indicates that you should drink more fluid,especially water. ODITY SUPERVISOR documented in this encounter Plan of Treatment Upcoming Encounters Date Type Specialty Care Team Description 06/18/2022 Ancillary Procedure Cardiology Abdi Bailey MD [address] [place] [address] (Wo rk) Scheduled Referrals Name Type Priority Associated Diagnoses Order [facility] NEUROLOGY ADULT Referral Routine Benign paroxysmal Ordered : 04/21/2017 REFERRAL positional vertigo, unspecified laterality documented as of this encounter Procedures Procedure Name Priority Date/Time Associated Comments Diagnosis ALBUMIN RANDOM URINE Routine 04/21/2017 4:44 PM Type 2 diabete s Results for this QUANTITATIVE COMMODITY SUPERVISOR mellitus without procedure a re in complication, the results without long-term section. current use of insulin (H) HEMOGLOBIN A1C Routine 04/21/2017 4:44 PM Type 2 diabetes Resu lts for this COMMODITY SUPERVISOR mellitus without procedure a re in complication, the results without long-term section. current use of insulin (H) COMPREHENSIVE Routine 04/21/2017 4:44 PM Type 2 diabetes Resul ts for this METABOLIC PANEL COMMODITY SUPERVISOR mellitus without procedur e are in complication, the results without long-term section. current use of insulin (H) documented in this encounter Results Albumin Random Urine Quantitative with Creat Ratio (04/21/2017 4:44 PM COMMODITY SUPERVISOR) P athologist Signature Creatinine 158 mg/dL 04/22/2017 [place] Urine 4:52 PM [facility] Albumin Urine 10 mg/L 04/22/2017 [place] mg/L 4:52 PM [facility] Albumin Urine 6.14 0 - 17 04/22/2017 [place] mg/g Cr mg/g Cr 4:52 PM [facility] Specimen Anatomical Collection Method Collection Time Receive d Time (Source) Location / / Volume Laterality Urine specimen 04/21/2017 4:44 PM 017 4:49 (specimen) COMMODITY SUPERVISOR PM COMMODITY SUPERVISOR Christian Steiner MD LAB - URINE ORDERABLES Performing Organization Address City/State/ZIP Code Phon e Number M [facility] [address] [address] [facility] [address] [address], U [phone] (ABNORMAL) Hemoglobin A1c (04/21/2017 4:44 PM COMMODITY SUPERVISOR) Patholo gist Method Time Signature Hemoglobin A1C 7.5 (H) 4.3 - 6.0 04/21/2017 [facility] % 5:18 PM COMMODITY SUPERVISOR [facility] Specimen Anatomical Collection Method Collection Time Receive d Time (Source) Location / / Volume Laterality Blood specimen 04/21/2017 4:44 PM 017 4:49 (specimen) COMMODITY SUPERVISOR PM COMMODITY SUPERVISOR Christian Steiner MD LAB - BLOOD ORDERABLES Performing Organization Address City/State/ZIP Code Phon e Number [facility] [address] [place] [address] [place] (ABNORMAL) Comprehensive metabolic panel (BMP + Alb, Alk Phos, ALT, AST, Total. Bili, TP) (04/21/2017 4:44 PM COMMODITY SUPERVISOR) Analysis Performed At Patho logist Time Signature Sodium 135 133 - 144 04/22/2017 [place] mmol/L 3:53 PM [facility] Potassium 4.4 3.4 - 5.3 04/22/2017 [place] mmol/L 3:53 PM [facility] Chloride 100 94 - 109 04/22/2017 [place] mmol/L 3:53 PM [facility] Carbon Dioxide 24 20 - 32 04/22/2017 [place] mmol/L 3:53 PM [facility] Anion Gap 11 3 - 14 04/22/2017 [place] mmol/L 3:53 PM [facility] Glucose 167 (H) 70 - 99 04/22/2017 [place] mg/dL 3:53 PM [facility] Comment: Non Fasting Urea Nitrogen 32 (H) 7 - 30 mg/dL 04/22/2017 3:53 PM [facility] Creatinine 1.22 0.66 - 1.25 mg/dL 04/22/2017 3:53 PM [facility] GFR Estimate 57 (L) >60 mL/min/1.7m2 04/22/2017 3:53 PM F [facility] Comment: Non GFR Calc GFR Estimate If 69 >60 mL/min/1.7m2 04/22/2017 3:53 P M [facility] Black [facility] Comment: GFR Calc Calcium 9.4 8.5 - 10.1 04/22/2017 3:53 PM [place] C [facility] mg/dL [facility] Bilirubin Total 0.4 0.2 - 1.3 mg/dL 04/22/2017 3:53 PM [facility] Albumin 4.1 3.4 - 5.0 g/dL 04/22/2017 3:53 PM [facility] COMMODITY SUPERVISOR [facility] Protein Total 7.3 6.8 - 8.8 g/dL 04/22/2017 3:58 PM [facility] Alkaline Phosphatase 93 40 - 150 U/L 04/22/2017 3:58 PM [facility] ALT 24 0 - 70 U/L 04/22/2017 3:58 PM [place] C [facility] COMMODITY SUPERVISOR [facility] AST 20 0 - 45 U/L 04/22/2017 3:53 PM [place] [facility] Specimen Anatomical Collection Method Collection Time Receive d Time (Source) Location / / Volume Laterality Blood specimen 04/21/2017 4:44 PM 017 4:49 (specimen) COMMODITY SUPERVISOR PM COMMODITY SUPERVISOR Christian Steiner MD LAB - BLOOD ORDERABLES Performing Organization Address City/State/ZIP Code Phon e Number [facility] [address] [place] [address] documented in this encounter Visit Diagnoses Diagnosis Benign paroxysmal positional vertigo, un specified laterality - Primary Type 2 diabetes mellitus without complic ation, without long-term current use of insulin (H) Hypertension goal BP (blood pressure) < 140/90 Unspecified essential hypertension documented in this encounter Care Teams Trend Investigator Relationship Specialty Start Date End Date Christian Steiner MD PCP - General Internal Medicine 08/30/12 Christian Steiner MD PCP - Assigned PCP 08/11/1208/16/18 Christian Steiner MD Assigned PCP 08/11/12 02/22/21 documented as of this encounter
--- OUTSIDE RECORDS SUMMARY | 2022-04-27 07:38 | XMS_ITS | Encounter Summary ---
:1935 Author Organization [facility] Address [address] [place] [address] Care Team Providers Name Role Phone Christian Steiner MD Primary Care Provider Unavailable Christian Steiner MD Unavailable Unavailable Christian Steiner MD Unavailable Unavailable Humberto Good MD Unavailable Ke Hernandes MD Unavailable Ina Sheriff MD Primary Care Provider [phone] Herson Licea MD Unavailable Ke Hernandes MD Unavailable Reason for Visit Reason Comments Medication Refill ACCU-CHEK FRANCISCO PLUS STRIPS 100'S Encounter Details Date Type Department Care Team Description 07/16/2016 Refill [facility] Christian Steiner, Medication Refill [facility] Reagan aguilar MD (ACCU-CHEK FRANCISCO PLUS [address] [facility] [address]) [address] [place] [phone] Social History Tobacco Use Types Packs/Day Years Used Date Smoking Tobacco: Former Cigarettes Quit : 02/29/1980 Smokeless Tobacco: Never Alcohol Use Standard Drinks/Week Comments Yes 0 (1 standard drink = 0.6 oz pure alcoho l) occasionally Sex Assigned at Date Recorded Not on file documented as of this encounter Miscellaneous Notes Telephone Encounter - Ethel Olson RN - 07/17/2016 3:53 PM GORE MAKER Prescription approved per [facility] Refill Protocol. Patient tests once daily as directed MAKER Telephone Encounter - Sofía Gore CMA - 07/17/2016 11:52 AM CST ACCU-CHEK FRANCISCO PLUS STRIPS 100'S Last Written Prescription Date: 05/30/15 Last Fill Quantity: 100, # refills: 1 Last Office Visit with G, P or [facility] prescribing provider: 03/17/16 Next 5 appointments (look out 90 days) Jul 21, 2016 1:45 PM Office Visit with Christian Steiner MD [facility] [address] [place] [phone] MAKER documented in this encounter Plan of Treatment Upcoming Encounters Date Type Specialty Care Team Description 06/18/2022 Ancillary Procedure Cardiology Abdi Bailey MD [address] [place] [address] (Wo rk) documented as of this encounter Visit Diagnoses Diagnosis Type 2 diabetes mellitus (H) - Primary Type II or unspecified type diabetes andrea litus without mention of complication, not stated as uncontrolled documented in this encounter Care Teams Rn Eligibility Relationship Specialty Start Date End Date Christian Steiner MD PCP - General Internal Medicine 08/30/12 Christian Steiner MD PCP - Assigned PCP 08/11/1208/16/18 Ina Sheriff, PCP - General Family Medicine 01/30/21 [facility] [address] [place] [address] Christian Steiner MD Assigned PCP 08/11/12 02/22/21 Humberto Good, Assigned Surgical 04/05/20 02/01/21 MD Provider [address] [place] [id number] Ke Hernandes, Assigned Heart and 04/28/20 10/11/21 MD Vascular Provider [address] [place] [id number] Herson Licea, Assigned Surgical 02/02/21 MD Provider [address] [place] [address] Ke Hernandes, Assigned Heart and 12/13/21 MD Vascular Provider [address] [place] [id number] documented as of this encounter
--- OUTSIDE RECORDS SUMMARY | 2022-04-27 07:38 | XMS_ITS | Encounter Summary ---
:1935 Author Organization [facility] Address [facility] [place] [address] Care Team Providers Name Role Phone Christian Steiner MD Primary Care Provider Unavailable OstluChristian phan MD Unavailable Unavailable OstChristian alaniz MD Unavailable Unavailable Encounter Details Date Type Department Care Team Description 03/09/2017 Orders Only [facility] Humberto Good Malignant neoplasm of Urology Clinic [place] Jimenez MD prostate (H) (Primary [address]) [address] [address] [place] [address] [phone] Social History Tobacco Use Types Packs/Day Years [...] 06/18/2022 Ancillary Procedure Cardiology Abdi Bailey MD [address] [place] [id number] (Wo rk) documented as of this encounter Procedures Procedure Name Priority Date/Time Associated Diagnosis Comme nts PSA DIAG UROLOGIC Routine 03/09/2017 1:47 PM Malignant neoplas m Results for this PHYS CDT of prostate (H) procedure ar e in the results section. documented in this encounter Results PSA Diag Urologic Phys (03/09/2017 1:47 PM CDT) P athologist Signature PSA Diag <0.04 0.00 - 03/09/2017 [facility] Urologic Phys 4.00 ng/mL 1:49 PM CDT [facility] Comment: Test performed by chemiluminesc ent immunoassay using [employer] Specimen Anatomical Collection Method Collection Time Receive d Time (Source) Location / / Volume Laterality Blood specimen 03/09/2017 1:47 PM 017 1:48 (specimen) CDT PM CDT Humberto Good MD LAB - BLOOD ORDERABLES Performing Organization Address City/State/ZIP Code Phon e Number [facility] [address] [phone] CLIN[address] documented in this encounter Visit Diagnoses Diagnosis Malignant neoplasm of prostate (H) - Yadira kait Malignant neoplasm of prostate documented in this encounter Care Teams Milk Runner Relationship Specialty Start Date End Date Christian Steiner MD PCP - General Internal Medicine 08/30/12 Christian Steiner MD PCP - Assigned PCP 08/11/1208/16/18 Christian Steiner MD Assigned PCP 08/11/12 02/22/21 documented as of this encounter
--- OUTSIDE RECORDS SUMMARY | 2022-04-27 07:38 | XMS_ITS | Encounter Summary ---
:1935 Author Organization [place] Address [address] [place] [address] Care Team Providers Name Role Phone Christian Steiner MD Primary Care Provider Unavailable Christian Steiner MD Unavailable Unavailable Christian Steiner MD Unavailable Unavailable Reason for Visit Reason Onset Date Comments Forms 10/05/2016 Yoselyn - Diabetic Form Encounter Details Date Type Department Care Team Description 10/05/2016 Telephone [facility] Christian Steiner, Forms (Yoselyn [facility] Reagan aguilar MD Diabetic Form) [address] [facility] [address] [place] [phone] Social History Tobacco Use Types Packs/Day Years Used Date Smoking Tobacco: Former Cigarettes Quit : 02/29/1980 Smokeless Tobacco: Never Alcohol Use Standard Drinks/Week Comments Yes 0 (1 standard drink = 0.6 oz pure alcoho l) occasionally Sex Assigned at Date Recorded Not on file documented as of this encounter Miscellaneous Notes Telephone Encounter - Guera Jack - 10/13/2016 10:06 AM CDT Signed by provider and faxed back 10/13/16 Telephone Encounter - Yue Ordaz - 10/05/2016 9:27 AM CDT Reason for Call: Form, our goal is to have forms completed with 72 hours, however, some forms may require a visit or additional information. Type of letter, form or note: Yoselyn Who is the form from?: Yoselyn (if other please explain) Where did the form come from: form was faxed in What clinic location was the form placed at?: [facility] Where the form was placed: 'brandi Box: Christian Steiner MD What number is listed as a contact on the form?: Yoselyn, fax # Additional comments: Yoselyn - Diabetic Form - Test Strips Call taken on 10/05/2016 at 9:27 AM by YUE ORDAZ documented in this encounter Plan of Treatment Upcoming Encounters Date Type Specialty Care Team Description 06/18/2022 Ancillary Procedure Cardiology Abdi Bailey MD [address] [place] [id number] (Wo rk) documented as of this encounter Visit Diagnoses Not on filedocumented in this encounter Care Teams Ribbon Inker Relationship Specialty Start Date End Date Christian Steiner MD PCP - General Internal Medicine 08/30/12 Christian Steiner MD PCP - Assigned PCP 08/11/1208/16/18 Christian Steiner MD Assigned PCP 08/11/12 02/22/21 documented as of this encounter
--- OUTSIDE RECORDS SUMMARY | 2022-04-27 07:38 | XMS_ITS | Encounter Summary ---
:1935 Author Organization [place] Address [facility] [place] [address] Care Team Providers Name Role Phone Christian Steiner MD Primary Care Provider Unavailable Christian Steiner MD Unavailable Unavailable Christian Steiner MD Unavailable Unavailable Reason for Visit Reason Comments Clinic Care Coordination - Post Hospital post hospital d/c phone call Encounter Details Date Type Department Care Team Description 07/15/2016 Care Coordination [facility] Yanique Larson RN Coordination - Post [facility] (post [facility] [address] hospital d/c phone [place] [phone] call ) [phone] Social History Tobacco Use Types Packs/Day Years Used Date Smoking Tobacco: Former Cigarettes Quit : 02/29/1980 Smokeless Tobacco: Never Alcohol Use Standard Drinks/Week Comments Yes 0 (1 standard drink = 0.6 oz pure alcoho l) occasionally Sex Assigned at Date Recorded Not on file documented as of this encounter Progress Notes Kraig Chow RN - 07/15/2016 9:22 AM CST Called patient to discuss any post hospital d/c questions he may have, review medication changes, and confirm f/u appts. Patient denied any questions regarding new medications or changes to some of hiscurrent medications that he was taking prior to admission. Patient denied any SOB, chest pain, or light headedness. RN confirmed with patient that he has an apt scheduled on 07/21/16 for pacemaker check.Patient advised to call clinic with any cardiac related questions or concerns prior to his apt on 07/21/16. Patient verbalized understanding and agreed with plan. NEERING OPERATOR documented in this encounter Plan of Treatment Upcoming Encounters Date Type Specialty Care Team Description 06/18/2022 Ancillary Procedure Cardiology Abdi Bailey MD [address] [place] [address] (Wo rk) documented as of this encounter Visit Diagnoses Not on filedocumented in this encounter Care Teams Chlorine Cells Operator Relationship Specialty Start Date End Date Christian Steiner MD PCP - General Internal Medicine 08/30/12 Christian Steiner MD PCP - Assigned PCP 08/11/1208/16/18 Christian Steiner MD Assigned PCP 08/11/12 02/22/21 documented as of this encounter
--- OUTSIDE RECORDS SUMMARY | 2022-04-27 07:38 | XMS_ITS | Encounter Summary ---
:1935 Author Organization [place] Address [address] [facility] [place] [address] Care Team Providers Name Role Phone Christian Steiner MD Primary Care Provider Unavailable Ostlund, Christian Arellano MD Unavailable Unavailable OstlundChristian MD Unavailable Unavailable Reason for Visit Auth/Cert Specialty Diagnoses / Procedures Referred By Contact Refer red To Contact Gastroenterology Diagnoses history of colonic polyps Rh Endoscopy Procedures COLONOSCOPY [address] [place] [address] Phone: Fax: Referral ID Status Reason Start Date Expiration Date Visits Requ ested Visits Authorized [id number] 1 1 Encounter Details Date Type Department Care Team Description 04/07/2016 Surgery [facility] Endoscopy Aldo Pham MD COLONOSCOPY [place] [facility] [address] [facility] [address] [place] [address] [place] [address] [phone] (Wo rk) Surgery Details Date/Time Status Location OR Service Patient Class Case Case Trauma Class Type Case? 04/07/16 Posted GI GI A Gastroenterology Outpatient 12:25 PM Panel 1 Procedure LRB Anes Op Region Wound Class Commen ts COLONOSCOPY N/A Conscious Sedation Rectum II-Clean Contami nated COLONOSCOPY Surgeon Surgeon Role Service Panel Aldo Clarke MD Primary Gastroenterology 1 Special Needs Ref: ostlund documented in this encounter Social History Tobacco Use Types Packs/Day Years Used Date Smoking Tobacco: Former Cigarettes Quit : 02/29/1980 Smokeless Tobacco: Never Alcohol Use Standard Drinks/Week Comments Yes 0 (1 standard drink = 0.6 oz pure alcoho l) occasionally Sex Assigned at Date Recorded Not on file documented as of this encounter Last Filed Vital Signs Vital Sign Reading Time Taken Comments Blood Pressure 116/72 04/07/2016 12:50 PM CDT Pulse - - Temperature - - Respiratory Rate 15 04/07/2016 12:50 PM CDT Oxygen Saturation 95% 04/07/2016 12:50 PM CDT Inhaled Oxygen Concentration - - Weight - - Height - - Body Mass Index - - documented in this encounter Discharge Instructions Discharge InstructionsLeticia Berg RN - 04/07/2016 1:16 PM CDT The patient has received a copy of the Provation report the doctor has written and discharge instructions have been discussed with the patient and responsible adult. All questions were addressed and answered prior to patient discharge. documented in this encounter Medications at Time [...] Take 1 tablet (10 90 tablet 3 03/17/201607/21/2 017 (PRINIVIL,ZESTRIL) 10 MG mg) by mouth [...] complication (H) documented as of this encounter H&P Notes Aldo Clarke MD - 04/07/2016 12:13 PM CDT Pre-Endoscopy History and Physical Humberto Siddiqui Date of : 1935 Age: [age] year old Date of Procedure: 04/07/2016 Primary care provider: Christian Steiner Type of Endoscopy: Colonoscopy with possible biopsy, possible polypectomy Reason for Procedure: screen Type of Anesthesia Anticipated: Conscious Sedation HPI: Humberto is a 80 year old male who will be undergoing the above procedure. A history and physical has been performed. The patient's medications and allergies have been reviewed. The risks and benefits of the procedure and the sedation options and risks were discussed with thepatient. All questions were answered and informed consent was obtained. He denies a personal or family history of anesthesia complications or bleeding disorders. Patient Active Problem List Diagnosis ??? Type 2 diabetes mellitus without complication (H) ??? Malignant neoplasm of prostate (H) ? ? Hyperlipidemia LDL goal <100 ??? Preventive measure ? ? Hypertension goal BP (blood pressure) < 140/90 ??? H/O tobacco use, presenting hazards to health ??? History of colonic polyps Past Medical History Diagnosis Date ??? Diabetes mellitus (H) Type II dx approx. 2004 ? High cholesterol ??? Malignant neoplasm of prostate (H) 2002 Prostate cancer; radioactive seeds ; Dr. Mckee; casodex in 2012 ??? Hypertension Past Surgical History Procedure Laterality Date ??? Excise mass back 03/06/2013 Procedure: EXCISE MASS BACK; Excision Left Back Mass, and Right Back Mass; Surgeon: Abdirashid King MD; Location: [facility] OR ??? Genitourinary surgery prostate Social History Substance Use Topics ??? Smoking status: Former Smoker Quit date: 02/29/1980 ??? Smokeless tobacco: Never Used ??? Alcohol Use: Yes Comment: occasionally Family History Problem Relation Age of Onset ??? DIABETES Son type 2 DM age 50 Prior to Admission medications Medication Sig Start Date End Date Taking? Authorizing Provider metFORMIN (GLUCOPHAGE) 1000 MG tablet TAKE 1 TABLET BY MOUTH TWICE DAILY 03/17/16 Christian Steiner MD glipiZIDE (GLUCOTROL) 5 MG tablet Take 1 tablet (5 mg) by mouth daily 03/17/16 Christian Steiner MD lisinopril (PRINIVIL,ZESTRIL) 10 MG tablet Take 1 tablet (10 mg) by mouth daily 03/17/16 Christian Steiner MD atorvastatin (LIPITOR) 40 MG tablet Take 1 tablet (40 mg) by mouth daily 03/17/16 Christian Steiner MD ACCU-CHEK FRANCISCO PLUS test strip TEST EVERY DAY DIRECTED 05/30/15 Christian Steiner MD cinnamon 500 MG CAPS Take 1 capsule by mouth daily Reported, Patient Calcium Carbonate-Vitamin D (CALCIUM 600 + D OR) Take 1 tablet by mouth daily Reported, Patient Cholecalciferol (VITAMIN D) 1000 UNITS capsule Take 1 capsule by mouth daily. Reported, Patient vitamin B complex with vitamin C (VITAMIN B COMPLEX) TABS Take 1 tablet by mouth daily. Reported, Patient bicalutamide (CASODEX) 50 MG tablet Take 50 mg by mouth daily. Reported, Patient aspirin 81 MG tablet Take 1 tablet by mouth daily. Reported, Patient Multiple Vitamin (DAILY MULTIVITAMIN PO) Take by mouth. Reported, Patient Co-Enzyme Q-10 10 MG CAPS Take by mouth daily. Reported, Patient No Known Allergies REVIEW OF SYSTEMS: 5 point ROS negative except as noted above in HPI, including Gen., Resp., CV, GI & system review. PHYSICAL EXAM: There were no vitals taken for this visit. Estimated body mass index is 28.61 kg/(m^2) as calculatedfrom the following: Height as of 07/23/15: 1.829 m (6'). Weight as of 03/17/16: 95.709 kg (211 lb). GENERAL APPEARANCE: alert, and oriented MENTAL STATUS: alert AIRWAY EXAM: Mallampatti Class II (visualization of the soft palate, fauces, and uvula) RESP: lungs clear to auscultation - no rales, rhonchi or wheezes CV: regular rates and rhythm DIAGNOSTICS: Not indicated IMPRESSION ASA Class 2 - Mild systemic disease PLAN: Plan for Colonoscopy with possible biopsy, possible polypectomy. We discussed the risks, benefits and alternatives and the patient wished to proceed. The above has been forwarded to the consulting provider. Signed Electronically by: Aldo Clarke April 07, 2016 documented in this encounter Nursing Notes Leticia Berg, RN - 04/07/2016 1:26 PM CDT Pt discharged home in stable condition documented in this encounter Plan of Treatment Upcoming Encounters Date Type Specialty Care Team Description 06/18/2022 Ancillary Procedure Cardiology Abdi Bailey MD [address] [place] [address] (Wo rk) documented as of this encounter Procedures Procedure Name Priority Date/Time Associated Diagnosis Comme nts GLUCOSE BY METER Routine 04/07/2016 12:29 PM Resu lts for this CDT procedure are i n the results section. COLONOSCOPY 04/07/2016 12:24 PM screen CDT Special Needs Ref: ostlund COLONOSCOPY Routine 04/07/2016 12:22 PM CDT Resu lts for this procedure are in the results section . documented in this encounter Results (ABNORMAL) Glucose by meter (04/07/2016 12:29 PM CDT) P athologist Signature Glucose 194 (H) 70 - 99 POINT OF CARE mg/dL TEST, GLUCOSE Specimen Anatomical Collection Method Collection Time Receive d Time (Source) Location / / Volume Laterality 04/07/2016 12:29 04/07/2016 PM CDT 12:34 PM CDT Aldo Clarke MD [facility] Performing Organization Address City/State/ZIP Code Phon e Number [facility] POINT OF CARE TEST, GLUCOSE POINT OF CARE TEST, GLUCOSE COLONOSCOPY (04/07/2016 12:22 PM CDT) [facility] Method Time Signature COLONOSCOPY [facility] RAD IOLOGY RESULTS Patient Name: Humberto Siddiqui ? Procedure Date: 04/07/2016 12:22 PM ? Accou nt Number: [id number] Date of : 1935 ? Admit Type: Outp atient Age: 80 ? Gender: Male Attending MD: Aldo Clarke MD ?Instrument Name: 131 Procedure: ?Colonoscopy Indications: ?High ri sk colon cancer surveillance: Personal ?history of colonic po lyps Providers: ?Aldo Clarke MD (Doctor), Michael Villagran RN ?(Nurse) Referring MD: ? Christian Steiner MD (Honorio evans MD) Medicines: ?Midazo flowers 1 mg IV, Fentanyl 50 micrograms IV Complications: ?No immediate complications. Procedure: ?Pre-Anesthesia Assessment: ?- Prior to the procedure, a History and Physical ?was performed, and patient medications and ?allergies were reviewed. The patient is competent. ?The risks and benefits of the procedure and the ?sedation options and risks were discussed with the ?patient. All questions were answered and informed ?consent was obtained. Patient identification and ?proposed procedure were verified by the physician ?in the procedure room. Mental Status Examination: ?alert and oriented. Airway Examination: normal ?oropharyngeal airway and neck mobility. Respiratory ?Examination: clear to auscultation. CV Examination: ?normal. Prophylactic Antibiotics: The patient does ?not require prophylactic antibiotics. Prior ?Anticoagulants: The patient has taken no previous ?anticoagulant or antiplatelet agents. ASA Grade ?Assessment: II - A patient with mild systemic ?disease. After reviewing the risks and benefits, ?the patient was deemed in satisfactory condition to ?undergo the procedure. The anesthesia plan was to ?use moderate sedation / analgesia (conscious ?sedation). Immediately prior to administration of ?medications, the patient was re-assessed for ?adequacy to receive sedatives. The heart rate, ?respiratory rate, oxygen saturations, blood ?pressure, adequacy of pulmonary ventilation, and ?response to care were monitored throughout the ?procedure. The physical status of the patient was ?re-assessed after the procedure. ?After obtaining informed consent, the colonoscope ?was passed under direct vision. Throughout the ?procedure, the patient's blood pressure, pulse, and ?oxygen saturations were monitored continuously. The ?[employer] Peds Colonoscope Model #[id number]-[id number], ?[place]#131, SN#[id number] was introduced through the ?anus and advanced to the cecum, identified by ?appendiceal orifice and ileocecal valve. The ?colonoscopy was performed without difficulty. The ?patient tolerated the procedure well. The quality ?of the bowel preparat ion was good. ? Findings: ? The perianal and digital rectal examinations were nor mal. ? The entire examined colon appeared normal on direct and retroflexion ? views. ? Impression: ? - The entire examined colon is normal on direct and ?retroflexion views. Recommendation: ? - No repeat colonoscopy becau se of age. ? Procedure Code(s): ? --- Professional --- ? G0105, Colorectal cancer screening; colonoscopy on individual at high ? risk Diagnosis Code(s): ? --- Professional --- ? Z86.010, Personal history of colonic polyps CPT copyright 2013 [employer]. All rights reserved. The codes documented in this report are prelimin leila and upon computer forensics analyst review may be revised to meet current compliance requirements. Electronically signed by Aldo Clarke MD Aldo Clarke MD 04/07/2016 12:52 PM I was physically present for the entire viewing portion of t he exam. Number of Addenda: 0 Note Initiated On: 04/07/2016 12:22 PM MRN: ?[id number] Procedure Date: ? 04/07/2016 12:22:46 PM Scope Withdrawal Time: 0 hours 6 minutes 24 seconds Total Procedure Duration: 0 hours 10 minutes 54 seconds Estimated Blood Loss: ? Scope In: 12:35:48 PM Scope Out: 12:46:42 PM Specimen (Source) Anatomical Collection Method Collection Time Re ceived Time Location / / Volume Laterality 04/07/2016 12:22 PM CDT Christian Steiner MD PROCEDURES Performing Organization Address City/State/ZIP Code Phon e Number RADIOLOGY RESULTS documented in this encounter Visit Diagnoses Not on filedocumented in this encounter Administered Medications Inactive Administered Medications - up to 3 most recent administrations Medication Order MAR Action Action Date Dose Rate Site fentaNYL Citrate (PF) (SUBLIMAZE) Given 04/07/2016 12:32 PM CDT 50 mcg injection PRN, Starting on Wed04/07/16 at 1232, Intra-procedure midazolam (VERSED) injection Given 04/07/2016 12:32 PM CDT 1 mg PRN, Starting on Wed04/07/16 at 1232, Intra-procedure sodium chloride (PF) 0.9% PF flush 3 mL Given 04/07/2016 12:32 PM CDT 3 mLs 3 mL, Intracatheter, EVERY 1 HOUR PRN, line flush, for peripheral IV flush post IV meds, Starting on Wed04/07/16 at 1212, Pre-procedure documented in this encounter Active and Recently Administered Medications Times are shown in CDT. PRN Medication Order 04/05/2016 04/06/2016 04/07/2016 fentaNYL Citrate (PF) (SUBLIMAZE) injection (CANCELED) 1232 (Given - Provider: Aldo Clarke MD) PRN, Starting Wed04/07/16 at 1232, Intra-procedure midazolam (VERSED) injection (CANCELED) 1232 (Given - Provider: Aldo Clarke MD) PRN, Starting Wed04/07/16 at 1232, Intra-procedure sodium chloride (PF) 0.9% PF flush 3 mL (CANCELED) 1232 (Given - Provider: Aldo Clarke MD) 3 mL, Intracatheter, EVERY 1 HOUR PRN, l ine flush, for peripheral IV flush post IV meds, Starting Wed04/07/16 at 1212, Pre-procedure documented in this encounter Care Teams Associate Professor Of Theology Relationship Specialty Start Date End Date Christian Steiner MD PCP - General Internal Medicine 08/30/12 Christian Steiner MD PCP - Assigned PCP 08/11/1208/16/18 Christian Steiner MD Assigned PCP 08/11/12 02/22/21 documented as of this encounter
--- OUTSIDE RECORDS SUMMARY | 2022-04-27 07:38 | XMS_ITS | Encounter Summary ---
:1935 Author Organization [place] Address [address] [place] [address] Care Team Providers Name Role Phone Christian Steiner MD Primary Care Provider Unavailable Christian Steiner MD Unavailable Unavailable Christian Steiner MD Unavailable Unavailable Reason for Visit Reason Comments Pacemaker Check PPM Carelink Encounter Details Date Type Department Care Team Description 12/07/2016 Allied Health/Nurse [facility] Pac emaker Check (PPM Visit Heart Clinic [facility]) [address] [place] [address] [place] [phone] Social History Tobacco Use Types Packs/Day Years Used Date Smoking Tobacco: Former Cigarettes Quit : 02/29/1980 Smokeless Tobacco: Never Alcohol Use Standard Drinks/Week Comments Yes 0 (1 standard drink = 0.6 oz pure alcoho l) occasionally Sex Assigned at Date Recorded Not on file documented as of this encounter Progress Notes Lily Escamilla - 12/07/2016 1:30 PM CDT [employer] Advisa MRI [id number] (D) Remote PPM Device Check AP: 17.5% BALLISTICS TEACHER: 99.9% Mode: DDD Presenting Rhythm: /BALLISTICS TEACHER Heart Rate: adequate heart rates per histogram Sensing: stable Pacing Threshold: stable Impedance: stable Battery Status: 8.5 - 10.5 years remaining Atrial Arrhythmia: 2 brief mode switch episodes, no EGMs available Ventricular Arrhythmia: none Care Plan: F/U Carelink q 3 months. Gave results and next transmission date over the phone to pt. Pina CVRaquel documented in this encounter Plan of Treatment Upcoming Encounters Date Type Specialty Care Team Description 06/18/2022 Ancillary Procedure Cardiology Abdi Bailey MD [address] [place] [id number] (Wo rk) documented as of this encounter Procedures Procedure Name Priority Date/Time Associated Diagnosis Comme nts ZZC PM DEVICE Routine 12/07/2016 5:57 PM Cardiac pacemaker in INTERROGATE REMOTE, UP CDT situ TO 90 DAYS, LEAD/LEADLESS HC INTERR DEVICE EVAL Routine 12/07/2016 Cardiac pacemaker i n REMOTE, PM/LDLS PM/ICD, situ UP TO 90 DAYS documented in this encounter Results INTERROGATION DEVICE EVAL REMOTE, PACER/ICD (69494) (12/07/2016) Narrative This result has an attachment that is no t available. Abdi Bailey MD PROCEDURES documented in this encounter Visit Diagnoses Diagnosis Cardiac pacemaker in situ - Primary documented in this encounter Care Teams Eggs Inspector Relationship Specialty Start Date End Date Christian Steiner MD PCP - General Internal Medicine 08/30/12 Christian Steiner MD PCP - Assigned PCP 08/11/1208/16/18 Christian Steiner MD Assigned PCP 08/11/12 02/22/21 documented as of this encounter
--- OUTSIDE RECORDS SUMMARY | 2022-04-27 07:38 | XMS_ITS | Encounter Summary ---
:1935 Author Organization [place] Address [address] [place] [address] Care Team Providers Name Role Phone Christian Steiner MD Primary Care Provider Unavailable Christian Steiner MD Unavailable Unavailable Christian Steiner MD Unavailable Unavailable Reason for Visit Reason Comments Pacemaker Check PPM Carelink Encounter Details Date Type Department Care Team Description 03/15/2017 Allied Health/Nurse [facility] Pac emaker Check (PPM Visit Heart Clinic [facility]) [address] [place] [address] [place] [phone] Social History Tobacco Use Types Packs/Day Years Used Date Smoking Tobacco: Former Cigarettes Quit : 02/29/1980 Smokeless Tobacco: Never Alcohol Use Standard Drinks/Week Comments Yes 0 (1 standard drink = 0.6 oz pure alcoho l) occasionally Sex Assigned at Date Recorded Not on file documented as of this encounter Progress Notes Negin Benson - 03/15/2017 2:30 PM CDT [employer] Advisa (D) Remote PPM Device Check AP: 17 % COOK 3 PASTRY: 99 % Mode: DDD Presenting Rhythm: /COOK 3 PASTRY Heart Rate: Adequate rates per histogram Sensing: Stable Pacing Threshold: Stable Impedance: Stable Battery Status: 7.5-9.5 years Atrial Arrhythmia: 7 brief mode switch episodes. 1 EGM shows As>Vs for PAT lasting 8 seconds, ventricular rates controlled. Ventricular Arrhythmia: None Care Plan: F/u annual threshold in 3 months. Gave patient results over the phone. NANCY [place] documented in this encounter Plan of Treatment Upcoming Encounters Date Type Specialty Care Team Description 06/18/2022 Ancillary Procedure Cardiology Abdi Bailey MD [address] [place] [id number] (Wo rk) documented as of this encounter Procedures Procedure Name Priority Date/Time Associated Diagnosis Comme nts HC INTERR DEVICE EVAL Routine 03/16/2017 Cardiac pacemaker i n REMOTE, PM/LDLS PM/ICD, situ UP TO 90 DAYS ZZC PM DEVICE Routine 03/15/2017 2:19 PM Cardiac pacemaker in INTERROGATE REMOTE, UP CDT situ TO 90 DAYS, LEAD/LEADLESS documented in this encounter Results INTERROGATION DEVICE EVAL REMOTE, PACER/ICD (75615) (03/16/2017) Narrative This result has an attachment that is no t available. Ke [place] MD PROCEDURES documented in this encounter Visit Diagnoses Diagnosis Cardiac pacemaker in situ - Primary documented in this encounter Care Teams Marine Designer Relationship Specialty Start Date End Date Christian Steiner MD PCP - General Internal Medicine 08/30/12 Christian Steiner MD PCP - Assigned PCP 08/11/1208/16/18 Christian Steiner MD Assigned PCP 08/11/12 02/22/21 documented as of this encounter
--- OUTSIDE RECORDS SUMMARY | 2022-04-27 07:38 | XMS_ITS | Encounter Summary ---
:1935 Author Organization [place] Address [facility] [place] [address] Care Team Providers Name Role Phone Christian Steiner MD Primary Care Provider Unavailable Christian Steiner MD Unavailable Unavailable Christian Steiner MD Unavailable Unavailable Reason for Visit Reason Comments Clinic Care Coordination - Follow-up History of Prosta te Cancer Encounter Details Date Type Department Care Team Description 03/09/2017 Office Visit [facility] Humberto Good Prostate cancer (H) Urology Clinic [place] Jimenez MD (Primary Dx) [address] [place] [address] [place] [address] [phone] Social History Tobacco Use Types Packs/Day Years Used Date Smoking Tobacco: Former Cigarettes Quit : 02/29/1980 Smokeless Tobacco: Never Alcohol Use Standard Drinks/Week Comments Yes 0 (1 standard drink = 0.6 oz pure alcoho l) occasionally Sex Assigned at Date Recorded Not on file documented as of this encounter Last Filed Vital Signs Vital Sign Reading Time Taken Comments Blood Pressure 132/66 03/09/2017 1:28 PM CDT Pulse 80 03/09/2017 1:28 PM CDT Temperature - - Respiratory Rate - - Oxygen Saturation - - Inhaled Oxygen Concentration - - Weight 97.5 kg (215 lb) 03/09/2017 1:28 PM CDT Height 182.9 cm (6') 03/09/2017 1:28 PM CDT Body Mass Index 29.16 03/09/2017 1:28 PM CDT documented in this encounter Progress Notes Humberto Good MD - 03/09/2017 1:20 PM CDT History: This is a great pleasure to see this very pleasant 81-year-old gentleman in follow-up consultation today. 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 He did well but because of a rising PSA he was started on androgen ablation in 2012 without evidence of obvious metastasis at that time and this treatment included both Eligard 45 and Casodex 50 mg q.d. It is now 18 months since his last Eligard injection although we have decided to continue with Casodex 50 mg q.d. by itself. 6 months ago the PSA was < 0.04, and now the PSA has remained at < 0.04. His general health is otherwise stable, he is being treated for type 2 diabetes, he remained active and engaged. There are no other new major health issues Past Medical History: Diagnosis Date ??? Diabetes mellitus (H) Type II dx approx. 2003 ? High cholesterol ??? Hypertension ??? Malignant neoplasm of prostate (H) 2002 Prostate cancer; radioactive seeds ; Dr. Mckee; casodex in 2012 Social History Social History ??? Marital status: Spouse name: Rita Vargas ??? Number of children: 3 ??? 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 Smoking status: Former Smoker Quit date: 02/29/1980 ??? Smokeless tobacco: Never Used ??? Alcohol use Yes Comment: occasionally ??? Drug use: No ??? Sexual activity: Yes Partners: Female Other Topics Concern ??? None Social History Narrative has diabetes also Past [...] DM age 52 Current Outpatient Prescriptions: ??? glipiZIDE (GLUCOTROL) 5 MG tablet, TAKE 1 TABLET(5 MG) BY MOUTH DAILY, Disp: 90 tablet, Rfl: 0 ??? bicalutamide (CASODEX) 50 MG tablet, Take 1 tablet (50 mg) by mouth daily, Disp: 90 tablet, Rfl:2 ??? lisinopril (PRINIVIL/ZESTRIL) 20 MG tablet, Take 1 tablet (20 mg) by mouth daily, Disp: 90 tablet, Rfl: 3 ??? ACCU-CHEK FRANCISCO PLUS test strip, USE TO TEST EVERY DAY DIRECTED, Disp: 100 strip, Rfl: 9 ??? metFORMIN (GLUCOPHAGE) 1000 MG tablet, TAKE 1 TABLET BY MOUTH TWICE DAILY, Disp: 180 tablet, Rfl: 3 ??? atorvastatin (LIPITOR) 40 MG tablet, Take 1 tablet (40 mg) by mouth daily, Disp: 90 tablet, Rfl:3 ??? Calcium Carbonate-Vitamin D (CALCIUM 600 + [...] of capsule unknown., Disp: , Rfl: ??? lisinopril (PRINIVIL/ZESTRIL) 10 MG tablet, TK 1 T PO D, Disp: , Rfl: 1 ??? cinnamon 500 MG CAPS, Take 1 capsule by mouth daily, Disp: , Rfl: 10 point ROS of systems including Constitutional, Eyes, Respiratory, Cardiovascular, Gastroenterology, Genitourinary, Integumentary, Muscularskeletal, Psychiatric were all negative except for pertinentpositives noted in my HPI. Examination: BP 132/66 (BP Location: Left arm) Pulse 80 Ht 1.829 m (6') Wt 97.5 kg (215 lb) BMI 29.16 kg/m2 General Impression: Very pleasant gentleman in no acute distress, well-oriented to time place and person Mental Status: Normal. HEENT. There is no evidence of jaundice in the mucous membranes are normal Skin: Skin is normal to examination Respiratory System: Respiratory cycle is normal Lymph Nodes: Not examined Back/Flank Tenderness: Not examined Cardiovascular System: Not Abdominal Examination: There is no not examined Extremities: There is no significant peripheral edema Genitial: Not examined Rectal Examination: Perineum is normal to examination. Good sphincter tone, normal perianal sensation. Smooth rectal mucosa without hemorrhoids or fissures. The prostate is slightly firmer on the right side of the left no small and there is no evidence of tenderness or bogginess. Seminal vesicles. Not palpable Neurologic System: There are no focal abnormal clinical neurological signs in the central, or peripheral nervous systems Impression: He still is maintaining excellent biochemical control of what is likely stage C prostatecancer. Digital rectal examination does indicate slight firmness on the right side although the gland is still small and the findings are likely unchanged from his last visit. I would recommend that we do not need to change his current treatment, we will continue on Casodex 50 mg q.d. and repeat the PSA in 6 months. I discussed the entire situation with the patient in detail today. I answered all questions Plan: 6 months for PSA and examination Time: 20 minutes. Greater than 50% in discussion and consultation This dictation was performed with voice recognition software and may contain errors, omissions and inadvertent word substitution. documented in this encounter Nursing Notes Anabella Phipps LPN - 03/09/2017 1:20 PM CDT Chief Complaint Patient presents with ??? Clinic Care Coordination - Follow-up History of Prostate Cancer Anabella Phipps LPN documented in this encounter Plan of Treatment Upcoming Encounters Date Type Specialty Care Team Description 06/18/2022 Ancillary Procedure Cardiology Abdi Bailey MD [address] [place] [id number] (Wo saman) documented as of this encounter Visit Diagnoses Diagnosis Prostate cancer (H) - Primary Malignant neoplasm of prostate documented in this encounter Care Teams Reference Data Expert Relationship Specialty Start Date End Date Christian Steiner MD PCP - General Internal Medicine 08/30/12 Christian Steiner MD PCP - Assigned PCP 08/11/1208/16/18 Christian Steiner MD Assigned PCP 08/11/12 02/22/21 documented as of this encounter
--- OUTSIDE RECORDS SUMMARY | 2022-04-27 07:38 | XMS_ITS | Encounter Summary ---
:1935 Author Organization [place] Address [facility] [place] [address] Care Team Providers Name Role Phone Christian Steiner MD Primary Care Provider Unavailable Christian Steiner MD Unavailable Unavailable Christian Steiner MD Unavailable Unavailable Reason for Visit Reason Comments Medication Refill Encounter Details Date Type Department Care Team Description 04/19/2017 Refill [facility] Christian Steiner MD Medication Refill [facility] [address] [facility] [place], [place] [phone] Social History Tobacco Use Types Packs/Day Years Used Date Smoking Tobacco: Former Cigarettes Quit : 02/29/1980 Smokeless Tobacco: Never Alcohol Use Standard Drinks/Week Comments Yes 0 (1 standard drink = 0.6 oz pure alcoho l) occasionally Sex Assigned at Date Recorded Not on file documented as of this encounter Miscellaneous Notes Telephone Encounter - Marry Escamilla RN - 04/21/2017 9:19 AM CST Medication is being filled for 1 time refill only due to: Patient needs labs and office visit. S [employer] THE[employer] documented in this encounter Plan of Treatment Upcoming Encounters Date Type Specialty Care Team Description 06/18/2022 Ancillary Procedure Cardiology Abdi Bailey MD [address] [place] [address] (Wo rk) documented as of this encounter Visit Diagnoses Diagnosis Type 2 diabetes mellitus without complic ation, without long-term current use of insulin (H) documented in this encounter Care Teams Home Office Claims Examiner Relationship Specialty Start Date End Date Christian Steiner MD PCP - General Internal Medicine 08/30/12 Christian Steiner MD PCP - Assigned PCP 08/11/1208/16/18 Christian Steiner MD Assigned PCP 08/11/12 02/22/21 documented as of this encounter
--- OUTSIDE RECORDS SUMMARY | 2022-04-27 07:39 | XMS_ITS | Encounter Summary ---
:1935 Author Organization [place] Address [facility] [place] [address] Care Team Providers Name Role Phone Christian Steiner MD Primary Care Provider Unavailable Christian Steiner MD Unavailable Unavailable Christian Steiner MD Unavailable Unavailable Reason for Visit Reason Comments Medication Refill Encounter Details Date Type Department Care Team Description 03/31/2013 Refill [facility] Christian Steiner MD Medication Refill [facility] [address] [facility] [address] [place], [place] [phone] Social History Tobacco Use [...] Ancillary Procedure Cardiology Abdi Bailey MD [address] [facility] [address] [place], [place] [address] (Wo rk) documented as of this encounter Visit Diagnoses Diagnosis Type II or unspecified type diabetes andrea litus without mention of complication, not stated as uncontrolled - Primary documented in this encounter Care Teams Poultry Killer Relationship Specialty Start Date End Date Christian Steiner MD PCP - General Internal Medicine 08/30/12 Christian Steiner MD PCP - Assigned PCP 08/11/1208/16/18 Christian Steiner MD Assigned PCP 08/11/12 02/22/21 documented as of this encounter
--- OUTSIDE RECORDS SUMMARY | 2022-04-27 07:39 | XMS_ITS | Encounter Summary ---
:1935 Author Organization [place] Address [address] [place] [address] Care Team Providers Name Role Phone Christian Steiner MD Primary Care Provider Unavailable Christian Steiner MD Unavailable Unavailable Christian Steiner MD Unavailable Unavailable Reason for Visit Reason Comments Medication Refill Metformin Encounter Details Date Type Department Care Team Description 09/25/2013 Refill [facility] Christian Steiner, Medication Refill [facility] Reagan aguilar MD (Metformin) [address] [facility] [address] [place] [address] Social History Tobacco Use Types Packs/Day Years Used Date Smoking Tobacco: Former Cigarettes Quit : 02/29/1980 Smokeless Tobacco: Never Alcohol Use Standard Drinks/Week Comments Yes 0 (1 standard drink = 0.6 oz pure alcoho l) occasionally Sex Assigned at Date Recorded Not on file documented as of this encounter Miscellaneous Notes Telephone Encounter - Aishwarya Nash RN - 09/26/2013 2:50 PM CDT Last office visit: 09-05-13 With labs Last refill date: 06-27-13 Special instructions from pharmacy: no BP Readings from Last 1 Encounters: 09/05/13 146/86 Creatinine Date Value Range Status 02/07/2013 1.30* 0.66 - 1.25 mg/dL Final Urea Nitrogen Date Value Range Status 02/07/2013 25 7 - 30 mg/dL Final Potassium Date Value Range Status 02/07/2013 4.2 3.4 - 5.3 mmol/L Final MICROALBUMIN Unable to calculate 02/07/2013 MICROL * 02/07/2013 Value: <5 Urine Microalbumin lowest reportable value has been changed from 2 mg/L to 5 mg/L due to a methodology change on September. GFR Estimate Date Value Range Status 02/07/2013 54* >60 mL/min/1.7m2 Final Cholesterol Date Value Range Status 02/07/2013 164 0 - 200 mg/dL Final LDL Cholesterol is the primary guide to therapy. The NCEP recommends further evaluation of: patients with cholesterol greater than 200 mg/dL if additional risk factors are present, cholesterol greater than 240 mg/dL, triglycerides greater than 150 mg/dL, or HDL less than 40 mg/dL. HDL Cholesterol Date Value Range Status 02/07/2013 41 40 - 110 mg/dL Final LDL Cholesterol Calculated Date Value Range Status 02/07/2013 109 0 - 129 mg/dL Final LDL Cholesterol is the primary guide to therapy: LDL-cholesterol goal in high risk patients is <100 mg/dL and in very high risk patients is <70 mg/dL. Triglycerides Date Value Range Status 02/07/2013 68 0 - 150 mg/dL Final Fasting specimen AST Date Value Range Status 02/07/2013 29 0 - 45 U/L Final ALT Date Value Range Status 02/07/2013 45 0 - 70 U/L Final Hemoglobin A1C Date Value Range Status 08/29/2013 7.1* 4.3 - 6.0 % Final No results found for this basename: tsh No results found for this basename: WBC No results found for this basename: rbc No results found for this basename: hgb No results found for this basename: hct No components found with this name: mct No results found for this basename: mcv No results found for this basename: mch No results found for this basename: mchc No results found for this basename: rdw No results found for this basename: plt No results found for this basename: uric ] Lab Results Component Value Date GLC 165* 02/07/2013 No results found for this basename: D2VIT Aishwarya Nash RN documented in this encounter Plan of Treatment Upcoming Encounters Date Type Specialty Care Team Description 06/18/2022 Ancillary Procedure Cardiology Abdi Bailey MD [address] [place] [id number] (Wo rk) documented as of this encounter Visit Diagnoses Diagnosis Type II or unspecified type diabetes andrea litus without mention of complication, not stated as uncontrolled - Primary documented in this encounter Care Teams Tree Worker Relationship Specialty Start Date End Date Christian Steiner MD PCP - General Internal Medicine 08/30/12 Christian Steiner MD PCP - Assigned PCP 08/11/1208/16/18 Christian Steiner MD Assigned PCP 08/11/12 02/22/21 documented as of this encounter
--- OUTSIDE RECORDS SUMMARY | 2022-04-27 07:39 | XMS_ITS | Encounter Summary ---
:1935 Author Organization [place] Address [address] [place] [address] Care Team Providers Name Role Phone Christian Steiner MD Primary Care Provider Unavailable Christian Steiner MD Unavailable Unavailable Christian Steiner MD Unavailable Unavailable Reason for Visit Reason Comments Medication Refill Lisinopril 10 mg, Atorvastat in 20 mg Encounter Details Date Type Department Care Team Description 05/21/[address] [facility] Christian Steiner, Medication Refill [facility] jeff BARRETT (Lisinopril 10 mg, [address] [facility] Atorvastatin 20 mg) [address] [place] [address] Social History Tobacco Use Types Packs/Day Years Used Date Smoking Tobacco: Former Cigarettes Quit : 02/29/1980 Smokeless Tobacco: Never Alcohol Use Standard Drinks/Week Comments Yes 0 (1 standard drink = 0.6 oz pure alcoho l) occasionally Sex Assigned at Date Recorded Not on file documented as of this encounter Miscellaneous Notes Telephone Encounter - Sumla Horta RN - 05/22/2014 10:47 AM CST Last office visit: 09/05/13 Last refill date: ? Special instructions from pharmacy: no BP not goal, labs current Per lab letter - all is ok Atorvastatin OK x 1 year Lisinopril OK x 6 months BP Readings from Last 1 Encounters: 09/05/13 146/86 Creatinine Date Value Range Status 03/21/2014 1.00 0.66 - 1.25 mg/dL Final Urea Nitrogen Date Value Range Status 03/21/2014 23 7 - 30 mg/dL Final Potassium Date Value Range Status 03/21/2014 4.4 3.4 - 5.3 mmol/L Final MICROALBUMIN 5.21 03/21/2014 MICROL 5 03/21/2014 GFR Estimate Date Value Range Status 03/21/2014 73 >60 mL/min/1.7m2 Final Cholesterol Date Value Range Status 03/21/2014 167 <200 mg/dL Final LDL Cholesterol is the primary guide to therapy. The NCEP recommends further evaluation of: patients with cholesterol greater than 200 mg/dL if additional risk factors are present, cholesterol greater than 240 mg/dL, triglycerides greater than 150 mg/dL, or HDL less than 40 mg/dL. HDL Cholesterol Date Value Range Status 03/21/2014 56 >40 mg/dL Final LDL Cholesterol Calculated Date Value Range Status 03/21/2014 101 0 - 129 mg/dL Final LDL Cholesterol is the primary guide to therapy: LDL-cholesterol goal in high risk patients is <100 mg/dL and in very high risk patients is <70 mg/dL. Triglycerides Date Value Range Status 03/21/2014 51 0 - 150 mg/dL Final Fasting specimen AST Date Value Range Status 03/21/2014 25 0 - 45 U/L Final ALT Date Value Range Status 03/21/2014 29 0 - 70 U/L Final Hemoglobin A1C Date Value Range Status 03/21/2014 6.7* 4.3 - 6.0 % Final No results [...] ] Lab Results Component Value Date GLC 195* 03/21/2014 No results found for this basename: D2VIT Sulma Horta RN ER GRINDER documented in this encounter Plan of Treatment Upcoming Encounters Date Type Specialty Care Team Description 06/18/2022 Ancillary Procedure Cardiology Abdi Bailey MD [address] [place] [address] (Wo rk) documented as of this encounter Visit Diagnoses Diagnosis Hyperlipidemia LDL goal <100 - Primary Other and unspecified hyperlipidemia Hypertension goal BP (blood pressure) < 140/90 Unspecified essential hypertension documented in this encounter Care Teams Canopy Inspector Relationship Specialty Start Date End Date Christian Steiner MD PCP - General Internal Medicine 08/30/12 Christian Steiner MD PCP - Assigned PCP 08/11/1208/16/18 Christian Steiner MD Assigned PCP 08/11/12 02/22/21 documented as of this encounter
--- OUTSIDE RECORDS SUMMARY | 2022-04-27 07:39 | XMS_ITS | Encounter Summary ---
:1935 Author Organization [place] Address [address] [place] [address] Care Team Providers Name Role Phone Christian Steiner MD Primary Care Provider Unavailable Christian Steiner MD Unavailable Unavailable Christian Steiner MD Unavailable Unavailable Humberto Good MD Unavailable Ke Hernandes MD Unavailable Ina Sheriff MD Primary Care Provider [phone] Herson Licea MD Unavailable Ke Hernandes MD Unavailable Reason for Visit Reason Comments Medication Refill metFORMIN (GLUCOPHAGE) 1000 MG tablet Encounter Details Date Type Department Care Team Description 12/25/2014 Refill [facility] Christian Steiner, Medication Refill [facility] Reagan aguilar MD (metFORMIN (GLUCOPHAGE) [address] [facility] 1000 MG tablet) [address] [place] [address] Social History Tobacco Use Types Packs/Day Years Used Date Smoking Tobacco: Former Cigarettes Quit : 02/29/1980 Smokeless Tobacco: Never Alcohol Use Standard Drinks/Week Comments Yes 0 (1 standard drink = 0.6 oz pure alcoho l) occasionally Sex Assigned at Date Recorded Not on file documented as of this encounter Miscellaneous Notes Telephone Encounter - Aishwarya Nash RN - 12/26/2014 10:31 AM CDT Routing refill request to provider for review/approval because: Patient needs to be seen because it has been more than 1 year since last office visit. Telephone Encounter - Carmen Monet CMA - 12/26/2014 7:14 AM CDT metFORMIN (GLUCOPHAGE) 1000 MG tablet Last Written Prescription Date: 09/25/14 Last Fill Quantity: 180, # refills: 0 Last Office Visit with [facility] primary care provider: 09/05/13 MICROL 5 03/21/2014 MICROALBUMIN 5.21 03/21/2014 CREATININE Date Value Ref Range Status 03/21/2014 1.00 0.66 - 1.25 mg/dL Final ] CHOL 167 03/21/2014 HDL 56 03/21/2014 LDL 101 03/21/2014 TRIG 51 03/21/2014 CHOLHDLRATIO 3.0 03/21/2014 AST 25 03/21/2014 ALT 29 03/21/2014 BP Readings from Last 3 Encounters: 09/05/13 146/86 03/06/13 145/83 02/28/13 152/80 A1C 6.7 03/21/2014 A1C 7.1 08/29/2013 A1C 6.7 02/07/2013 A1C 6.5 05/03/2012 A1C 6.2 03/20/2011 POTASSIUM Date Value Ref Range Status 03/21/2014 4.4 3.4 - 5.3 mmol/L Final documented in this encounter Plan of Treatment Upcoming Encounters Date Type Specialty Care Team Description 06/18/2022 Ancillary Procedure Cardiology Abdi Bailey MD [address] [place] [id number] (Wo rk) documented as of this encounter Visit Diagnoses Diagnosis Diabetes mellitus, type 2 (H) - Primary Type II or unspecified type diabetes andrea litus without mention of complication, not stated as uncontrolled documented in this encounter Care Teams Director Of Business Services Relationship Specialty Start Date End Date Christian Steiner MD PCP - General Internal Medicine 08/30/12 Christian Steiner MD PCP - Assigned PCP 08/11/1208/16/18 Ina Sheriff, PCP - General Family Medicine 01/30/[address] [address] Christian Steiner MD Assigned PCP 08/11/12 02/22/21 Humberto Good, Assigned Surgical 04/05/20 02/01/21 MD Provider [address] [place] [address] Ke Hernandes, Assigned Heart and 04/28/20 10/11/21 MD Vascular Provider [address] [place] [address] [place] [id number] Herson Licea, Assigned Surgical 02/02/21 MD Provider [address] [place] [id number] Ke Hernandes, Assigned Heart and 12/13/21 MD Vascular Provider [address] [place] [address] [place] [id number] documented as of this encounter
--- OUTSIDE RECORDS SUMMARY | 2022-04-27 07:39 | XMS_ITS | Encounter Summary ---
:1935 Author Organization [place] Address [address] [place] [address] Care Team Providers Name Role Phone Christian Steiner MD Primary Care Provider Unavailable Christian Steiner MD Unavailable Unavailable Christian Steiner MD Unavailable Unavailable Reason for Visit Reason Comments Medication Refill LISINOPRIL 10MG TABLETS and ATORVASTATIN 40MG TABLETS Encounter Details Date Type Department Care Team Description 01/27/2016 Refill [facility] Christian Steiner, Medication Refill [facility] Reagan aguilar MD (LISINOPRIL 10MG TABLETS [address] [facility] and ATORVASTATIN 40MG [address] TABLETS) [place] [phone] Social History Tobacco Use Types Packs/Day Years Used Date Smoking Tobacco: Former Cigarettes Quit : 02/29/1980 Smokeless Tobacco: Never Alcohol Use Standard Drinks/Week Comments Yes 0 (1 standard drink = 0.6 oz pure alcoho l) occasionally Sex Assigned at Date Recorded Not on file documented as of this encounter Miscellaneous Notes Telephone Encounter - Sulma Horta RN - 01/28/2016 10:34 AM CDT Lisinopril: Medication is being filled for 1 time refill only due to: Patient needs to be seen because due for DM appt now . Atorvastatin: Medication is being filled for 1 time refill only due to: Patient needs to be seen because due for 6mo DM appt now . Telephone Encounter - Carmen Monet CMA - 01/28/2016 9:00 AM CDT LISINOPRIL 10MG TABLETS Last Written Prescription Date: 01/30/15 Last Fill Quantity: 90, # refills: 3 Last Office Visit with [facility] or [facility] prescribing provider: 07/23/15 POTASSIUM Date Value Ref Range Status 07/23/2015 4.5 3.4 - 5.3 mmol/L Final CREATININE Date Value Ref Range Status 07/23/2015 1.10 0.66 - 1.25 mg/dL Final BP Readings from Last 3 Encounters: 07/23/15 130/68 01/30/15 136/80 09/05/13 146/86 ATORVASTATIN 40MG TABLETS Last Written Prescription Date: 01/31/15 Last Fill Quantity: 90, # refills: 3 Last Office Visit with [facility], [facility] or [facility] prescribing provider: 07/23/15 CHOL 156 07/23/2015 HDL 50 07/23/2015 LDL 92 07/23/2015 LDL 102 01/30/2015 TRIG 69 07/23/2015 CHOLHDLRATIO 3.0 03/21/2014 documented in this encounter Plan of Treatment Upcoming Encounters Date Type Specialty Care Team Description 06/18/2022 Ancillary Procedure Cardiology Abdi Bailey MD [address] [place] [id number] (Wo rk) documented as of this encounter Visit Diagnoses Diagnosis Type 2 diabetes mellitus without complic ation (H) - Primary Hyperlipidemia LDL goal <100 Other and unspecified hyperlipidemia Hypertension goal BP (blood pressure) < 140/90 Unspecified essential hypertension documented in this encounter Care Teams Director Investment Banking Relationship Specialty Start Date End Date Christian Steiner MD PCP - General Internal Medicine 08/30/12 Christian Steiner MD PCP - Assigned PCP 08/11/1208/16/18 Christian Steiner MD Assigned PCP 08/11/12 02/22/21 documented as of this encounter
--- OUTSIDE RECORDS SUMMARY | 2022-04-27 07:39 | XMS_ITS | Encounter Summary ---
:1935 Author Organization [place] Address [facility] [place] [address] Care Team Providers Name Role Phone Christian Steiner MD Primary Care Provider Unavailable Christian Steiner MD Unavailable Unavailable Christian Steiner MD Unavailable Unavailable Encounter Details Date Type Department Care Team Description 03/21/2014 Orders Only [facility] Typ e 2 diabetes, HbA1C goal < 8% (H); [facility] Hype rlipidemia LDL goal <100 Laboratory [address] [facility] [address] [place] [address] Social History Tobacco Use Types Packs/Day Years Used Date Smoking Tobacco: Former Cigarettes Quit : 02/29/1980 Smokeless Tobacco: Never Alcohol Use Standard Drinks/Week Comments Yes 0 (1 standard drink = 0.6 oz pure alcoho l) occasionally Sex Assigned at Date Recorded Not on file documented as of this encounter Nursing Notes Aishwarya Nash RN - 03/27/2014 8:28 AM CDT Lab letter mailed documented in this encounter Plan of Treatment Upcoming Encounters Date Type Specialty Care Team Description 06/18/2022 Ancillary Procedure Cardiology Abdi Bailey MD [address] [place] [id number] (Wo rk) documented as of this encounter Procedures Procedure Name Priority Date/Time Associated Diagnosis Comme nts ALBUMIN RANDOM URINE Routine 03/21/2014 8:58 Type 2 diabetes, HbA1C Results for this QUANTITATIVE AM CDT goal < 8% (H) procedure are in the results section. LIPID PROFILE Routine 03/21/2014 8:57 Hyperlipidemia LDL Resul ts for this AM CDT goal <100 procedure are i n the results section. HEMOGLOBIN A1C Routine 03/21/2014 8:57 Type 2 diabetes, HbA1C Results for this AM CDT goal < 8% (H) procedure are in the results section. COMPREHENSIVE Routine 03/21/2014 8:57 Type 2 diabetes, HbA1C R esults for this METABOLIC PANEL AM CDT goal < 8% (H) procedure a re in the results section. documented in this encounter Results Microalbumin quantitative, random urine (03/21/2014 8:58 AM CDT) athologist Signature Creatinine 99 mg/dL [facility] Urine [facility] Albumin Urine 5 mg/L [facility] mg/L [facility] Albumin Urine 5.21 0 - 17 [facility] mg/g Cr mg/g Cr [facility] Specimen Anatomical Collection Method Collection Time Receive d Time (Source) Location / / Volume Laterality Urine specimen 03/21/2014 8:58 AM 014 9:04 (specimen) CDT AM CDT Christian Steiner MD LAB - URINE ORDERABLES Performing Organization Address City/State/ZIP Code Phon e Number M [facility] [address] [address] [facility] Lipid Profile (Chol, Trig, HDL, LDL calc) (03/21/2014 8:57 AM CDT) athologist Signature Cholesterol 167 <200 mg/dL [facility] Comment: LDL Cholesterol is the primary guide to therapy. The NCEP recommends further evaluation of: patients with cholesterol greater than 200 mg/dL if additional risk facto rs are present, cholesterol greater than 240 mg/dL, triglycerides greater than 1 50 mg/dL, or HDL less than 40 mg/dL. Triglycerides 51 0 - 150 mg/dL [facility] CLI NICS [facility] Comment: Fasting specimen HDL Cholesterol 56 >40 mg/dL [facility] CLINI CS [facility] LDL Cholesterol Calculated 101 0 - 129 mg/dL [facility] Comment: LDL Cholesterol is the primary guide to therapy: LDL-cholesterol goal in high risk patients is <100 mg/dL and in very high risk patients is <70 mg/dL. VLDL-Cholesterol 10 0 - 30 mg/dL [facility] Janessa [facility] Cholesterol/HDL Ratio 3.0 0.0 - 5.0 [facility] Specimen Anatomical Collection Method Collection Time Receive d Time (Source) Location / / Volume Laterality Blood specimen 03/21/2014 8:57 AM 9:02 (specimen) CDT AM CDT Christian Steiner MD LAB - BLOOD ORDERABLES Performing Organization Address [facility] Phon e Number [address] [address] CREN[place]W XERES (ABNORMAL) Hemoglobin A1c (03/21/2014 8:57 AM CDT) Patholo gist Method Time Signature Hemoglobin A1C 6.7 (H) 4.3 - 6.0 [facility] Specimen Anatomical Collection Method Collection Time Receive d Time (Source) Location / / Volume Laterality Blood specimen 03/21/2014 8:57 AM 014 9:02 (specimen) CDT AM CDT Christian Steiner MD LAB - BLOOD ORDERABLES Performing Organization Address [facility]/ZIP [facility] Phon e Number [place] [address] [place] [address] [place] XERXES [place] [address] [place] [address] [place] XERXES (ABNORMAL) Comprehensive metabolic panel (BMP + Alb, Alk Phos, ALT, AST, Total. Bili, TP) (03/21/2014 8:57 AM CDT) Analysis Performed At Patho logist Time Signature Sodium 139 133 - 144 [facility] mmol/L [facility] Potassium 4.4 3.4 - 5.3 [facility] mmol/L [facility] Chloride 102 94 - 109 [facility] mmol/L [facility] Carbon Dioxide 25 20 - 32 [facility] mmol/L [facility] Anion Gap 11.9 6 - 17 [facility] mmol/L [facility] Glucose 195 (H) 60 - 99 [facility] mg/dL [facility] Comment: Fasting specimen Urea Nitrogen 23 7 - 30 mg/dL [facility] Creatinine 1.00 0.66 - 1.25 mg/dL [facility] GFR Estimate 73 >60 mL/min/1.7m2 [facility] GFR Estimate If Black 88 >60 mL/min/1.7m2 [facility] Calcium 8.8 8.5 - 10.4 mg/dL [facility] Bilirubin Total 0.6 0.2 - 1.3 mg/dL [facility] Albumin 3.9 3.3 - 4.9 g/dL [facility] Protein Total 7.1 6.8 - 8.8 g/dL [facility] Alkaline Phosphatase 92 40 - 150 U/L [facility] ALT 29 0 - 70 U/L [facility] AST 25 0 - 45 U/L [facility] Specimen Anatomical Collection Method Collection Time Receive d Time (Source) Location / / Volume Laterality Blood specimen 03/21/2014 8:57 AM 014 9:02 (specimen) CDT AM CDT Christian Steiner MD LAB - BLOOD ORDERABLES Performing Organization Address City/State/ZIP Code Phon e Number [facility] [address] [place] [address] [address] [facility] documented in this encounter Visit Diagnoses Diagnosis Type 2 diabetes, HbA1C goal < 8% (H) Type II or unspecified type diabetes andrea litus without mention of complication, not stated as uncontrolled Hyperlipidemia LDL goal <100 Other and unspecified hyperlipidemia documented in this encounter Care Teams Truck Manager Relationship Specialty Start Date End Date Christian Steiner MD PCP - General Internal Medicine 08/30/12 Christian Steiner MD PCP - Assigned PCP 08/11/1208/16/18 Christian Steiner MD Assigned PCP 08/11/12 02/22/21 documented as of this encounter
--- OUTSIDE RECORDS SUMMARY | 2022-04-27 07:39 | XMS_ITS | Encounter Summary ---
:1935 Author Organization [place] Address [address] [place] [address] Care Team Providers Name Role Phone Christian Steiner MD Primary Care Provider Unavailable Christian Steiner MD Unavailable Unavailable Christian Steiner MD Unavailable Unavailable Reason for Visit Reason Comments Medication Refill Metformin 1000 mg Encounter Details Date Type Department Care Team Description 03/26/2014 Refill [facility] Christian Steiner, Medication Refill [facility] Reagan aguilar MD (Metformin 1000 mg) [address] [facility] [address] [place] [address] Social History Tobacco Use Types Packs/Day Years Used Date Smoking Tobacco: Former Cigarettes Quit : 02/29/1980 Smokeless Tobacco: Never Alcohol Use Standard Drinks/Week Comments Yes 0 (1 standard drink = 0.6 oz pure alcoho l) occasionally Sex Assigned at Date Recorded Not on file documented as of this encounter Miscellaneous Notes Telephone Encounter - Sulma Horta RN - 03/27/2014 12:40 PM CDT Last office visit: 09/05/13 Last refill date: ? Special instructions from pharmacy: no Labs current March , lab letter sent, no mention of needing appointment , so due in August 2014 OK til then BP Readings from Last 1 Encounters: 09/05/13 [...] for this basename: D2VIT Sulma Horta RN documented in this encounter Plan of Treatment Upcoming Encounters Date Type Specialty Care Team Description 06/18/2022 Ancillary Procedure Cardiology Abdi Bailey MD [address] [place] [id number] (Wo rk) documented as of this encounter Visit Diagnoses Diagnosis Type 2 diabetes, HbA1C goal < 8% (H) - P rimary Type II or unspecified type diabetes andrea litus without mention of complication, not stated as uncontrolled documented in this encounter Care Teams Portfolio Consultant Relationship Specialty Start Date End Date Christian Steiner MD PCP - General Internal Medicine 08/30/12 Christian Steiner MD PCP - Assigned PCP 08/11/1208/16/18 Christian Steiner MD Assigned PCP 08/11/12 02/22/21 documented as of this encounter
--- OUTSIDE RECORDS SUMMARY | 2022-04-27 07:39 | XMS_ITS | Encounter Summary ---
:1935 Author Organization [place] Address [address] [place] [address] Care Team Providers Name Role Phone Christian Steiner MD Primary Care Provider Unavailable Christian Steiner MD Unavailable Unavailable Christian Steiner MD Unavailable Unavailable Reason for Visit Reason Comments Medication Refill Encounter Details Date Type Department Care Team Description 06/27/2013 Refill [facility] Christian Steiner MD Medication Refill [facility] [address] [place] [address] [place], [place] [phone] Social History Tobacco Use Types Packs/Day Years Used Date Smoking Tobacco: Former Cigarettes Quit : 02/29/1980 Smokeless Tobacco: Never Alcohol Use Standard Drinks/Week Comments Yes 0 (1 standard drink = 0.6 oz pure alcoho l) occasionally Sex Assigned at Date Recorded Not on file documented as of this encounter Miscellaneous Notes Telephone Encounter - Heather Brantley E - 06/27/2013 1:28 PM CST DIABETES Last Office Visit R/T Diagnosis: 03/20/13 Provider Notes: recheck x 6 months LDL Cholesterol Calculated Date Value Range Status 02/07/2013 109 0 - 129 mg/dL Final LDL Cholesterol is the primary guide to therapy: LDL-cholesterol goal in high risk patients is <100 mg/dL and in very high risk patients is <70 mg/dL. ] A1C 6.7 02/07/2013 A1C 6.5 05/03/2012 A1C 6.2 03/20/2011 Creatinine Date Value Range Status 02/07/2013 1.30* 0.66 - 1.25 mg/dL Final ALT 45 02/07/2013 BP Readings from Last 1 Encounters: 03/06/13 145/83 BIGUANIDES Glucophage(metformin) OV: 6 mths Tests: Annual- Creat LDL<100 BP q 6 mths <140/90 HgbA1C q 3 mths >8 HgbA1C q 6 mths <8 Max refills: 6 mths Do not need to forward to provider if LDL>100 and pt is current on labs, appts, and/or has a plan. Pts with CHF, refer to provider note Creatinine>1.4 forward to provider If taking for polycystic ovary disease OK to refill for 12 mths SULFONYLUREAS: Amaryl, Glyburide, Diabinese, Glucotrol(Glipizide) OV: 6 mths Tests: Annual- LDL<100 BP q 6 mths <140/90 HgbA1C q 3 mths >8 HgbA1C q 6 mths <8 Max refills: 6 mths Do not need to forward to provider if LDL>100 and pt is current on labs, appts, and/or has a plan. THIAZOLIDINEDIONES (TZDs): Actos OV: 6 mths Tests: Annual- ALT/AST LDL <100 BP q 6 mths, <140/90 HgbA1C q 3 mths >8 HgbA1C q 6 mths <8 Max refills: 6 mths ALT once 30 days after start date, then every 12 mths CHF pts: Refer to provider note Do not need to forward to provider if LDL>100 and pt is current on labs, appts, and/or has a plan. MEGLITINIDES Starlix,Prandin OV: 6 mths Tests: Annual- LDL <100 BP q 6 mths, <140/90 HgbA1C q 3 mths >8 HgbA1C q 6 mths <8 Max refills: 6 mths Do not need to forward to provider if LDL>100 and pt is current on labs, appts, and/or has a plan. ALPHA GLUCOSIDASE INHIBITOR Glyset, Precose OV: 6 mths Tests: Annual- LDL <100 BP q 6 mths, <140/90 HgbA1C q 3 mths >8 HgbA1C q 6 mths <8 Max refills: 6 mths Do not need to forward to provider if LDL>100 and pt is current on labs, appts, and/or has a plan. COMBOS: Actosplus Met, Avendamet, Glucovance, Metaglip OV: 6 mths Tests: Annual- LDL <100 Creatinine (metformin) AST/ALT (Actos) BP q 6 mths, <140/90 HgbA1C q 3 mths >8 HgbA1C q 6 mths <8 Max refills: 6 mths refer to provider if Creat >1.4 Pts with CHF-refer to provider Do not need to forward to provider if LDL>100 and pt is current on labs, appts, and/or has a plan. Refilled per standing orders for 180 days with 0 refills. Heather Brantley RN NDER MACHINE OPERATOR Telephone Encounter - Heather Brantley - 06/27/2013 1:26 PM CST Last office visit: 03/20/13 Last refill date: 03/31/13 Special instructions from pharmacy: yes 90 days supply. BP Readings from Last 1 Encounters: 03/06/13 145/83 Creatinine Date Value Range Status 02/07/2013 1.30* [...] Final Hemoglobin A1C Date Value Range Status 02/07/2013 6.7* 4.3 - 6.0 % Final No [...] No results found for this basename: D2VIT Heather Brantley RN NDER MACHINE OPERATOR documented in this encounter Plan of Treatment Upcoming Encounters Date Type Specialty Care Team Description 06/18/2022 Ancillary Procedure Cardiology Abdi Bailey MD [address] [place] [id number] (Wo rk) documented as of this encounter Visit Diagnoses Diagnosis Diabetes mellitus, type 2 (H) - Primary Type II or unspecified type diabetes andrea litus without mention of complication, not stated as uncontrolled documented in this encounter Care Teams Flatbed Press Operator Relationship Specialty Start Date End Date Christian Steiner MD PCP - General Internal Medicine 08/30/12 Christian Steiner MD PCP - Assigned PCP 08/11/1208/16/18 Christian Steiner MD Assigned PCP 08/11/12 02/22/21 documented as of this encounter
--- OUTSIDE RECORDS SUMMARY | 2022-04-27 07:39 | XMS_ITS | Encounter Summary ---
:1935 Author Organization [facility] Address [address] [place] [address] Care Team Providers Name Role Phone Christian Steiner MD Primary Care Provider Unavailable Christian Steiner MD Unavailable Unavailable Christian Steiner MD Unavailable Unavailable Reason for Visit Reason Comments Diabetes Hypertension home BP 130/70's Encounter Details Date Type Department Care Team Description 09/05/2013 Office Visit [facility] Christian Steiner Type 2 di abetes, HbA1C goal < 8% (H) (Primary Dx); Clinic Smiley Arellano MD Hypertens ion goal BP (blood pressure) < 140/90; [facility] Hyperlipidemia LDL goal <100 ; [address] [place] [address] H/O tobac co use, presenting hazards to [facility] [address] [place] [address] Social History Tobacco Use Types Packs/Day Years Used Date Smoking Tobacco: Former Cigarettes Quit : 02/29/1980 Smokeless Tobacco: Never Alcohol Use Standard Drinks/Week Comments Yes 0 (1 standard drink = 0.6 oz pure alcoho l) occasionally Sex Assigned at Date Recorded Not on file documented as of this encounter Last Filed Vital Signs Vital Sign Reading Time Taken Comments Blood Pressure 146/86 09/05/2013 8:50 AM CDT Pulse 88 09/05/2013 8:29 AM CDT Temperature 37.1 ??C (98.8 ??F) 09/05/2013 8:29 AM CDT Respiratory Rate 16 09/05/2013 8:29 AM CDT Oxygen Saturation - - Inhaled Oxygen Concentration - - Weight 98.4 kg (217 lb) 09/05/2013 8:29 AM CDT Height 182.9 cm (6') 09/05/2013 8:29 AM CDT Body Mass Index 29.43 09/05/2013 8:29 AM CDT documented in this encounter Progress Notes Christian Steiner MD - 09/05/2013 8:34 AM CDT SUBJECTIVE: Humberto Siddiqui is a 78 year old male who presents to clinic today for the following health issues: Chief Complaint Patient presents with ??? Diabetes ??? Blood Pressure home BP 130/70's Diabetes Follow-up ?? Patient is checking blood sugars: 1 times a week [id number]==[id number] ?? Diabetic concerns: None ?? Symptoms of hypoglycemia (low blood sugar): none ?? Paresthesias (numbness or burning in feet) or sores: No ?? Diabetic eye exam within the last year: Yes ?? Amount of exercise or physical activity: 2-3 days/week for an average of 15- 30 minutes ?? Problems taking medications regularly: No ?? Medication side effects: none ?? Diet: diabetic History Substance Use Topics ??? Smoking status: Former Smoker Quit date: 02/29/1980 ??? Smokeless tobacco: Never Used ??? Alcohol Use: Yes Comment: occasionally Problem list and histories reviewed & adjusted, as indicated. Additional history: he feels well. Not doing much walking. Home remodeling keeps him busy Patient Active Problem List Diagnosis Date Noted ??? H/O tobacco use, presenting hazards to health 09/05/2013 Priority: High Quit 1979. In 03/25, CT abd shows no AAA ? ? Hyperlipidemia LDL goal <100 09/07/2012 Priority: High ??? Malignant neoplasm of prostate Priority: High Prostate cancer; radioactive seeds ; Dr. Mckee;PSA 8.6 in 04/25; casodex in 2012 ? ? Type 2 diabetes, HbA1C goal < 8% 04/21/2011 Priority: High Class: Chronic DX approx 2003 per pt ? ? Hypertension goal BP (blood pressure) < 140/90 02/28/2013 Priority: Medium Add lisinopril 02/24 ??? Preventive measure 09/07/2012 Priority: Low Colonoscopy 04/24; a 10 mm polyp;tubular adenoma Current Outpatient Prescriptions Medication Sig ??? metFORMIN (GLUCOPHAGE) 1000 MG tablet TAKE 1 TABLET BY MOUTH TWICE DAILY ??? cinnamon 500 MG CAPS Take 1 capsule by mouth daily ??? Calcium Carbonate-Vitamin D (CALCIUM 600 + D OR) Take 1 tablet by mouth daily ??? atorvastatin (LIPITOR) 20 MG tablet Take 1 tablet (20 mg) by mouth daily ??? lisinopril (PRINIVIL,ZESTRIL) 10 MG tablet Take 1 tablet (10 mg) by mouth daily ??? Cholecalciferol (VITAMIN D) 1000 UNITS capsule Take 1 capsule by mouth daily. ??? vitamin B complex with vitamin C (VITAMIN B COMPLEX) TABS Take 1 tablet by mouth daily. ??? bicalutamide (CASODEX) 50 MG tablet Take 50 mg by mouth daily. ??? glipiZIDE (GLUCOTROL) 5 MG tablet Take 5 mg by mouth daily. ??? aspirin 81 MG tablet Take 1 tablet by mouth daily. ??? Multiple Vitamin (DAILY MULTIVITAMIN PO) Take by mouth. ??? Co-Enzyme Q-10 10 MG CAPS Take by mouth daily. No Known Allergies BP Readings from Last 3 Encounters: 09/05/13 146/86 03/06/13 145/83 03/06/13 145/83 Wt Readings from Last 3 Encounters: 09/05/13 217 lb (98.431 kg) 03/06/13 216 lb (97.977 kg) 03/06/13 216 lb (97.977 kg) ROS: CONSTITUTIONAL:NEGATIVE for fever, chills, change in weight RESP:NEGATIVE for significant cough or SOB CV: NEGATIVE for chest pain, palpitations or peripheral edema OBJECTIVE: BP 146/86 Pulse 88 Temp 98.8 ??F (37.1 ??C) (Tympanic) Resp 16 Ht 6' (1.829 m) Wt 217 lb (98.431 kg) BMI 29.42 kg/m2 Body mass index is 29.42 kg/(m^2). GENERAL APPEARANCE: alert and no distress RESP: lungs clear to auscultation - no rales, rhonchi or wheezes CV: regular rates and rhythm, normal S1 S2, no S3 or S4 and no murmur, click or rub Diagnostic test results: Results for orders placed in visit on 08/29/13 HEMOGLOBIN A1C Component Value Range Hemoglobin A1C 7.1 (*) 4.3 - 6.0 % ASSESSMENT/PLAN: 1. Type 2 diabetes, HbA1C goal < 8% (250.00) Comprehensive metabolic panel (BMP + Alb, Alk Phos, ALT, AST, Total. Bili, TP), Hemoglobin A1c, Microalbumin quantitative, random urine 2. Hypertension goal BP (blood pressure) < 140/90 (401.9) 3. Hyperlipidemia LDL goal <100 (272.4) Lipid Profile (Chol, Trig, HDL, LDL calc) 4. H/O tobacco use, presenting hazards to health (V15.82) diab control not as good. More walking would help. Home BP good per pt; no change in med now; consider adding HCTZ or amlo Follow up with Provider - 6 months; labs first Christian Steiner MD [facility] documented in this encounter Nursing Notes 09/05/2013 8:30 AM CDT >> Samara Lao LPN [place] Sep 05, 2013 8:37 AM Patient presents with: Abnormal Labs Initial BP 150/80 Pulse 88 Temp 98.8 ??F (37.1 ??C) (Tympanic) Resp 16 Ht 6' (1.829 m) Wt 217 lb (98.431 kg) BMI 29.42 kg/m2 Estimated Body mass index is 29.42 kg/(m^2) as calculated from the following: Height as of this encounter: 6' 0(1.829 m). Weight as of this encounter: 217 lb(98.431 kg).. BP completed using cuff size: regular Vickie Lao LPN documented in this encounter Plan of Treatment Upcoming Encounters Date Type Specialty Care Team Description 06/18/2022 Ancillary Procedure Cardiology Abdi Bailey MD [address] [place] [id number] (Wo rk) documented as of this encounter Visit Diagnoses Diagnosis Type 2 diabetes, HbA1C goal < 8% (H) - P rimary Type II or unspecified type diabetes andrea litus without mention of complication, not stated as uncontrolled Hypertension goal BP (blood pressure) < 140/90 Unspecified essential hypertension Hyperlipidemia LDL goal <100 Other and unspecified hyperlipidemia H/O tobacco use, presenting hazards to h ealth Personal history of tobacco use, present ing hazards to health documented in this encounter Care Teams Oakes Machine Operator Relationship Specialty Start Date End Date Christian Steiner MD PCP - General Internal Medicine 08/30/12 Christian Steiner MD PCP - Assigned PCP 08/11/1208/16/18 Christian Steiner MD Assigned PCP 08/11/12 02/22/21 documented as of this encounter
--- OUTSIDE RECORDS SUMMARY | 2022-04-27 07:39 | XMS_ITS | Encounter Summary ---
:1935 Author Organization [facility] Address [address] [place] [address] Care Team Providers Name Role Phone Christian Steiner MD Primary Care Provider Unavailable Christian Steiner MD Unavailable Unavailable Christian Steiner MD Unavailable Unavailable Reason for Visit Reason Onset Date Comments Forms 07/03/2015 [facility] Diabetic Supplies Encounter Details Date Type Department Care Team Description 07/03/2015 Telephone [facility] Christian Steiner, Forms ([facility] Reagan aguilar MD Diabetic Supplies) [address] [facility] [address] [place] [address] Social History Tobacco Use Types Packs/Day Years Used Date Smoking Tobacco: Former Cigarettes Quit : 02/29/1980 Smokeless Tobacco: Never Alcohol Use Standard Drinks/Week Comments Yes 0 (1 standard drink = 0.6 oz pure alcoho l) occasionally Sex Assigned at Date Recorded Not on file documented as of this encounter Miscellaneous Notes Telephone Encounter - Yue Ordaz - 07/03/2015 9:13 AM CST Form reviewed, completed, and signed by Dr. Christian Steiner [facility] Copy of form made for [facility] DUARTE Leavitt Y FILTER TENDER Telephone Encounter - Yue Ordaz - 07/03/2015 9:12 AM CST Our goal is to have forms completed within 72 hours, however some forms may require a visit or additional information. What clinic location was the form placed at [facility] or [place].? Who is the form from? [facility]os[facility] Where did the form come from? Mailed to clinic The form was placed in the inbox of Christian Steiner MD Please mail to [facility] (self addressed, stamped envelope enclosed) Additional comments: Diabetic Supplies Call take on 07/03/2015 at 9:12 AM by YUE ORDAZ Y FILTER TENDER documented in this encounter Plan of Treatment Upcoming Encounters Date Type Specialty Care Team Description 06/18/2022 Ancillary Procedure Cardiology Abdi Bailey MD [address] [place] [id number] (Wo rk) documented as of this encounter Visit Diagnoses Not on filedocumented in this encounter Care Teams Chainstitch Hemmer Relationship Specialty Start Date End Date Christian Steiner MD PCP - General Internal Medicine 08/30/12 Christian Steiner MD PCP - Assigned PCP 08/11/1208/16/18 Christian Steiner MD Assigned PCP 08/11/12 02/22/21 documented as of this encounter
--- OUTSIDE RECORDS SUMMARY | 2022-04-27 07:39 | XMS_ITS | Encounter Summary ---
:1935 Author Organization [facility] Address [address] [place] [address] Care Team Providers Name Role Phone Christian Steiner MD Primary Care Provider Unavailable Christian Steiner MD Unavailable Unavailable Christian Steiner MD Unavailable Unavailable Reason for Visit Reason Comments Medication Refill metFORMIN (GLUCOPHAGE) 1000 MG tablet Encounter Details Date Type Department Care Team Description 01/28/2015 Refill [facility] Christian Steiner, Medication Refill [facility] Reagan aguilar MD (metFORMIN (GLUCOPHAGE) [address] [facility] 1000 MG tablet) [address] [place] [id number] Social History Tobacco Use Types Packs/Day Years Used Date Smoking Tobacco: Former Cigarettes Quit : 02/29/1980 Smokeless Tobacco: Never Alcohol Use Standard Drinks/Week Comments Yes 0 (1 standard drink = 0.6 oz pure alcoho l) occasionally Sex Assigned at Date Recorded Not on file documented as of this encounter Miscellaneous Notes Telephone Encounter - Aishwarya Nash RN - 01/28/2015 2:00 PM CDT Routing refill request to provider for review/approval because: Patient needs to be seen because it has been more than 1 year since last office visit. Telephone Encounter - Francisca Lee CMA - 01/28/2015 11:22 AM CDT Metformin (Glucophage) 1000MG Last Written Prescription Date: 12/26/2014 Last Fill Quantity: 60, # refills: 0 [place] [facility] [place]: 09/05/2013 Next 5 appointments (look out 90 days) Jan 30, 2015 10:00 AM [facility] [address] [address] MICROL 5 03/21/2014 MICROALBUMIN 5.21 03/21/2014 CREATININE [...] [address] [place] [id number] (Wo rk) documented as of this encounter Visit Diagnoses Diagnosis Diabetes mellitus, type 2 (H) - Primary Type II or unspecified type diabetes andrea litus without mention of complication, not stated as uncontrolled documented in this encounter Care Teams Manager Leasing Relationship Specialty Start Date End Date Christian Steiner MD PCP - General Internal Medicine 08/30/12 Christian Steiner MD PCP - Assigned PCP 08/11/1208/16/18 Christian Steiner MD Assigned PCP 08/11/12 02/22/21 documented as of this encounter
--- OUTSIDE RECORDS SUMMARY | 2022-04-27 07:39 | XMS_ITS | Encounter Summary ---
:1935 Author Organization [place] Address [facility] [place] [address] Care Team Providers Name Role Phone Christian Steiner MD Primary Care Provider Unavailable Christian Steiner MD Unavailable Unavailable Christian Steiner MD Unavailable Unavailable Reason for Referral Diagnostic Procedure Outpatient - Closed Specialty Diagnoses / Procedures Referred By Contact Refer red To Contact Diagnoses History of colonic polyps Christian Steiner MD MULTIPLE LOCATIONS [address] [place] [address] Referral ID Status Reason Start Date Expiration Date Visits Requ ested Visits Authorized [id number] Closed 03/17/2016 03/17/2017 1 1 Reason for Visit Reason Comments Diabetes Encounter Details Date Type Department Care Team Description [facility] Type 2 di abetes mellitus without complication, without long-term current use of insulin (H) (Primary Dx); Clinic Smiley Arellano MD Essential hypertension with goal blood pressure less than 140/90; [facility] Hyperlipidemia LDL goal <100 ; [address] [facility] History o f colonic polyps; [place] Need for prophylactic vaccin ation and inoculation against influenza [address] [place] [address] Social History Tobacco Use Types [...] Reading Time Taken Comments Blood Pressure 124/70 03/17/2016 1:14 PM CDT Pulse 73 03/17/2016 1:14 PM CDT Temperature 36.6 ??C (97.9 ??F) 03/17/2016 1:14 PM CDT Respiratory Rate 20 03/17/2016 1:14 PM CDT Oxygen Saturation 97% 03/17/2016 1:14 PM CDT Inhaled Oxygen Concentration - - Weight 95.7 kg (211 lb) 03/17/2016 1:14 PM CDT Height 182.9 cm (6') 03/17/2016 1:14 PM CDT Body Mass Index 28.62 03/17/2016 1:14 PM CDT documented in this encounter Patient Instructions Patient InstructionsChristian Steiner MD - 03/17/2016 1:27 PM CDT On the day before and the day of your of your colonoscopy do not take the metformin or the glipizide. I will let you know your lab results. documented in this encounter Progress Notes Mya Salvador LPN - 03/17/2016 3:22 PM CDT Injectable Influenza Immunization Documentation 1. Is the person to be vaccinated sick today? No 2. Does the person to be vaccinated have an allergy to eggs or to a component of the vaccine? No 3. Has the person to be vaccinated today ever had a serious reaction to influenza vaccine in the past? No 4. Has the person to be vaccinated ever had Guillain-Hudson syndrome? No Form completed by Mya Salvador LPN Christian Steiner MD - 03/17/2016 1:15 PM CDT SUBJECTIVE: Humberto Siddiqui is a 80 year old male who presents to clinic today for the following health issues: Diabetes Follow-up ?? Patient is checking blood sugars: rarely. Results range from 150 AM to 120 later ?? Diabetic concerns: None ?? Symptoms of hypoglycemia (low blood sugar): none ?? Paresthesias (numbness or burning in feet) or sores: No ?? Date of last diabetic eye exam: 2014 ?? Amount of exercise or physical activity: occ. ?? Problems taking medications regularly: No ?? Medication side effects: none ?? Diet: low salt and diabetic Overall he states that he feels healthy. No symptoms of peripheral neuropathy. He has yearly eye exams. He is due for colonoscopy this year. We reviewed his recent urology visit. Problem list and histories reviewed & adjusted, as indicated. Current Outpatient Prescriptions Medication Sig Dispense Refill ??? lisinopril (PRINIVIL,ZESTRIL) 10 MG tablet TAKE 1 TABLET BY MOUTH ONCE DAILY 90 tablet 0 ??? atorvastatin (LIPITOR) 40 MG tablet TAKE 1 TABLET BY MOUTH DAILY 90 tablet 0 ??? ACCU-CHEK FRANCISCO PLUS test strip TEST EVERY DAY DIRECTED 100 each 1 ??? metFORMIN (GLUCOPHAGE) 1000 MG tablet TAKE 1 TABLET BY MOUTH TWICE DAILY 180 tablet 3 ??? glipiZIDE (GLUCOTROL) 5 MG tablet Take 1 tablet (5 mg) by mouth daily 90 tablet 3 ??? cinnamon 500 MG CAPS Take 1 capsule by mouth daily ??? Calcium Carbonate-Vitamin D (CALCIUM 600 + D OR) Take 1 tablet by mouth daily ??? Cholecalciferol (VITAMIN D) [...] Allergies BP Readings from Last 3 Encounters: 03/17/16 124/70 03/10/16 126/90 07/23/15 130/68 Wt Readings from Last 3 Encounters: 03/17/16 211 lb (95.709 kg) 03/10/16 215 lb (97.523 kg) 07/23/15 212 lb (96.163 kg) Problem list, Medication list, Allergies, and Medical/Social/Surgical histories reviewed in EPIC andupdated as appropriate. ROS: Constitutional, HEENT, cardiovascular, pulmonary, gi and gu systems are negative, except as otherwise noted. OBJECTIVE: BP 124/70 mmHg Pulse 73 Temp(Src) 97.9 ??F (36.6 ??C) Resp 20 Ht 6' (1.829 m) Wt 211 lb (95.709 kg) BMI 28.61 kg/m2 SpO2 97% Body mass index is 28.61 kg/(m^2). GENERAL APPEARANCE: healthy, alert and no distress RESP: lungs clear to auscultation - no rales, rhonchi or wheezes CV: regular rates and rhythm, normal S1 S2, no S3 or S4 and no murmur, click or rub DIABETIC FOOT EXAM: normal DP and PT pulses, no trophic changes or ulcerative lesions and normal sensory exam Diagnostic test results: Pending ASSESSMENT/PLAN: ICD-10-CM 1. Type 2 diabetes mellitus without complication, without long-term current use of insulin (H) E11.9Comprehensive metabolic panel (BMP + Alb, Alk Phos, ALT, AST, Total. Bili, TP) Hemoglobin A1c 2. Essential hypertension with goal blood pressure less than 140/90 I10 Comprehensive metabolic panel (BMP + Alb, Alk Phos, ALT, AST, Total. Bili, TP) lisinopril (PRINIVIL,ZESTRIL) 10 MG tablet 3. Hyperlipidemia LDL goal <100 E78.5 TSH WITH FREE T4 REFLEX LDL cholesterol direct atorvastatin (LIPITOR) 40 MG tablet 4. History of colonic polyps Z86.010 GASTROENTEROLOGY ADULT REFERRAL +/- PROCEDURE 5. Need for prophylactic vaccination and inoculation against influenza Z23 6. Type 2 diabetes, HbA1C goal < 8% (H) E11.9 metFORMIN (GLUCOPHAGE) 1000 MG tablet glipiZIDE (GLUCOTROL) 5 MG tablet We reviewed several issues. Check labs and adjust medications as indicated. Patient Instructions On the day before and the day of your of your colonoscopy do not take the metformin or the glipizide. I will let you know your lab results. Christian Steiner MD [facility] Results for orders placed or performed in visit on 03/17/16 TSH WITH FREE T4 REFLEX Result Value Ref Range TSH 1.40 0.40 - 5.00 mU/L Comprehensive metabolic panel (BMP + Alb, Alk Phos, ALT, AST, Total. Bili, TP) Result Value Ref Range Sodium 139 133 - 144 mmol/L Potassium 4.2 3.4 - 5.3 mmol/L Chloride 104 94 - 109 mmol/L Carbon Dioxide 26 20 - 32 mmol/L Anion Gap 8.9 3 - 14 mmol/L Glucose 156 (H) 70 - 99 mg/dL Urea Nitrogen 25 7 - 30 mg/dL Creatinine 1.14 0.66 - 1.25 mg/dL GFR Estimate 62 >60 mL/min/1.7m2 GFR Estimate If Black 75 >60 mL/min/1.7m2 Calcium 8.9 8.5 - 10.4 mg/dL Bilirubin Total 0.6 0.2 - 1.3 mg/dL Albumin 4.1 3.4 - 5.0 g/dL Protein Total 6.9 6.8 - 8.8 g/dL Alkaline Phosphatase 75 40 - 150 U/L ALT 26 0 - 70 U/L AST 20 0 - 45 U/L LDL cholesterol direct Result Value Ref Range LDL Cholesterol Direct 80 <100 mg/dL Hemoglobin A1c Result Value Ref Range Hemoglobin A1C 7.3 (H) 4.3 - 6.0 % Letter sent. Your lab results are stable. Keep taking the same medications. Your diabetes control isadequate. The A1C of 7.3 correlates to an average blood sugar of approximately 159. documented in this encounter Nursing Notes Mya Salvador LPN - 03/17/2016 3:20 PM CDT Prior to injection verified patient identity using patient's name and date of . Mya Salvador LPN - 03/17/2016 1:15 PM CDT Chief Complaint Patient presents with ??? Diabetes Initial BP 124/70 mmHg Pulse 73 Temp(Src) 97.9 ??F (36.6 ??C) Resp 20 Ht 6' (1.829 m) Wt 211 lb (95.709 kg) BMI 28.61 kg/m2 SpO2 97% Estimated body mass index is 28.61 kg/(m^2) as calculated from the following: Height as of this encounter: 6' (1.829 m). Weight as of this encounter: 211 lb (95.709 kg). BP completed using cuff size: large Mya Salvador LPN documented in this encounter Plan of Treatment Upcoming Encounters Date Type Specialty Care Team Description 06/18/2022 Ancillary Procedure Cardiology Abdi Bailey MD [address] [place] [id number] (Wo rk) Scheduled Referrals Name Type Priority Associated Diagnoses Order S chedule GASTROENTEROLOGY ADULT Referral Routine History of colonic Ordered: 03/17/2016 REFERRAL +/- PROCEDURE polyps documented as of this encounter Procedures Procedure Name Priority Date/Time Associated Diagnosis Comme nts TSH WITH FREE T4 Routine 03/17/2016 1:32 Hyperlipidemia LDL Re sults for this REFLEX PM CDT goal <100 procedure are i n the results section. LDL CHOLESTEROL Routine 03/17/2016 1:32 Hyperlipidemia LDL Res ults for this DIRECT PM CDT goal <100 procedure are i n the results section. HEMOGLOBIN A1C Routine 03/17/2016 1:32 Type 2 diabetes Results for this PM CDT mellitus without procedure a re in complication, without the re sults long-term current use sectio n. of insulin (H) COMPREHENSIVE Routine 03/17/2016 1:32 Type 2 diabetes Results for this METABOLIC PANEL PM CDT mellitus without procedur e are in complication, without the re sults long-term current use sectio n. of insulin (H) Essential hypertension with goal blood pressure less than 140/90 documented in this encounter Results (ABNORMAL) Hemoglobin A1c (03/17/2016 1:32 PM CDT) [facility] gist Method Time Signature Hemoglobin A1C 7.3 (H) 4.3 - 6.0 [facility] Specimen Anatomical Collection Method Collection Time Receive d Time (Source) Location / / Volume Laterality Blood specimen 03/17/2016 1:32 PM 016 1:37 (specimen) CDT PM CDT Christian Steiner MD LAB - BLOOD ORDERABLES Performing Organization Address City/State/ZIP Code Phon e Number [address] [address] [place] LDL cholesterol direct (03/17/2016 1:32 PM CDT) Analysis Performed At Patho logist Time Signature LDL Cholesterol 80 <100 mg/dL [place] Direct [facility] Comment: Desirable: <100 mg/dl Specimen Anatomical Collection Method Collection Time Receive d Time (Source) Location / / Volume Laterality Blood specimen 03/17/2016 1:32 PM 016 1:37 (specimen) CDT PM CDT Christian Steiner MD LAB - BLOOD ORDERABLES Performing Organization Address City/State/ZIP Code Phon e Number [address] [address] [place] DICK[place] (ABNORMAL) Comprehensive metabolic panel (BMP + Alb, Alk Phos, ALT, AST, Total. Bili, TP) (03/17/2016 1:32 PM CDT) Patholo gist Method Time Signature Sodium 139 133 - 144 [place] mmol/L [facility] Potassium 4.2 3.4 - 5.3 [place] mmol/L [facility] Chloride 104 94 - 109 [place] mmol/L [facility] Carbon Dioxide 26 20 - 32 [place] mmol/L [facility] Anion Gap 8.9 3 - 14 [place] mmol/L [facility] Glucose 156 (H) 70 - 99 [place] mg/dL [facility] Urea Nitrogen 25 7 - 30 [place] mg/dL [facility] Creatinine 1.14 0.66 - [place] 1.25 [facility]INICS mg/dL [facility] GFR Estimate 62 >60 [place] mL/min/1. [facility] 7m2 [facility] GFR Estimate If 75 >60 [place] Black mL/min/1. [facility] 7m2 [facility] Calcium 8.9 8.5 - [facility] 10.4 CLINICS mg/dL [facility] Bilirubin Total 0.6 0.2 - 1.3 [place] mg/dL [facility] Albumin 4.1 3.4 - 5.0 [place] g/dL [facility] Protein Total 6.9 6.8 - 8.8 [place] g/dL [facility] Alkaline 75 40 - 150 [place] Phosphatase U[facility] ALT 26 0 - 70 [place] U/L [facility] AST 20 0 - 45 [place] U/L [facility] Specimen Anatomical Collection Method Collection Time Receive d Time (Source) Location / / Volume Laterality Blood specimen 03/17/2016 1:32 PM 016 1:37 (specimen) CDT PM CDT Chrisitan Steiner MD LAB - BLOOD ORDERABLES Performing Organization Address City/[facility]/ZIP Code Phon e Number [address] [address] [facility] TSH WITH FREE T4 REFLEX (03/17/2016 1:32 PM CDT) P athologist Signature TSH 1.40 0.40 - 5.00 [facility] mU/L [facility] Specimen Anatomical Collection Method Collection Time Receive d Time (Source) Location / / Volume Laterality Blood specimen 03/17/2016 1:32 PM 016 1:37 (specimen) CDT PM CDT Christian Steiner MD LAB - BLOOD ORDERABLES Performing Organization Address City/[facility]/ZIP Code Phon e Number [address] [address] [place] documented in this encounter Visit Diagnoses Diagnosis Type 2 diabetes mellitus without complic ation, without long-term current use of insulin (H) - Primary Essential hypertension with goal blood p ressure less than 140/90 Hyperlipidemia LDL goal <100 Other and unspecified hyperlipidemia History of colonic polyps Personal history of colonic polyps Need for prophylactic vaccination and in oculation against influenza documented in this encounter Care Teams Basket Hand Braider Relationship Specialty Start Date End Date Christian Steiner MD PCP - General Internal Medicine 08/30/12 Christian Steiner MD PCP - Assigned PCP 08/11/1208/16/18 Christian Steiner MD Assigned PCP 08/11/12 02/22/21 documented as of this encounter
--- OUTSIDE RECORDS SUMMARY | 2022-04-27 07:39 | XMS_ITS | Encounter Summary ---
:1935 Author Organization [place] Address [address] [place] [address] Care Team Providers Name Role Phone Christian Steiner MD Primary Care Provider Unavailable Christian Steiner MD Unavailable Unavailable Christian Steiner MD Unavailable Unavailable Reason for Visit Reason Onset Date Comments *-*INCOMING RECORDS*-* 03/24/2016 [facility] Encounter Details Date Type Department Care Team Description 03/24/2016 Telephone [facility] Christian Steiner, *-*INCOMING RECORDS*-* [facility] Reagan aguilar MD ([facility] [address] [place] [address] Consultants ) [address] [place] [address] Social History Tobacco Use Types Packs/Day Years Used Date Smoking Tobacco: Former Cigarettes Quit : 02/29/1980 Smokeless Tobacco: Never Alcohol Use Standard Drinks/Week Comments Yes 0 (1 standard drink = 0.6 oz pure alcoho l) occasionally Sex Assigned at Date Recorded Not on file documented as of this encounter Miscellaneous Notes Telephone Encounter - SushmaSuzetteYue A - 03/24/2016 3:04 PM CDT Reason for Call: Form, our goal is to have forms completed with 72 hours, however, some forms may require a visit or additional information. Type of letter, form or note: [facility] Who is the form from?: [facility] (if other please explain) Where did the form come from: form was faxed in What clinic location was the form placed at?: [facility] Where the form was placed: 'brandi Box: Christian Steiner MD What number is listed as a contact on the form?: [facility] Additional comments: 03-24-2016 - OFFICE VISIT Summary Call taken on 03/24/2016 at 3:05 PM by YUE ODRAZ documented in this encounter Plan of Treatment Upcoming Encounters Date Type Specialty Care Team Description 06/18/2022 Ancillary Procedure Cardiology Abdi Bailey MD [address] [place] [id number] (Wo rk) documented as of this encounter Visit Diagnoses Not on filedocumented in this encounter Care Teams Astronomy Department Chair Relationship Specialty Start Date End Date Christian Steiner MD PCP - General Internal Medicine 08/30/12 Christian Steiner MD PCP - Assigned PCP 08/11/1208/16/18 Christian Steiner MD Assigned PCP 08/11/12 02/22/21 documented as of this encounter
--- OUTSIDE RECORDS SUMMARY | 2022-04-27 07:39 | XMS_ITS | Encounter Summary ---
:1935 Author Organization [place] Address [address] [place] [address] Care Team Providers Name Role Phone Christian Steiner MD Primary Care Provider Unavailable Christian Steiner MD Unavailable Unavailable Christian Steiner MD Unavailable Unavailable Reason for Visit Reason Comments Medication Refill Encounter Details Date Type Department Care Team Description 11/12/2014 Refill [facility] Christian Steiner MD Medication Refill [facility] [address] [place] [address] [address] [place], [place] [address] Social History Tobacco Use Types Packs/Day Years Used Date Smoking Tobacco: Former Cigarettes Quit : 02/29/1980 Smokeless Tobacco: Never Alcohol Use Standard Drinks/Week Comments Yes 0 (1 standard drink = 0.6 oz pure alcoho l) occasionally Sex Assigned at Date Recorded Not on file documented as of this encounter Miscellaneous Notes Telephone Encounter - Bita Sigala RN - 11/12/2014 3:13 PM CDT Last Written Prescription Date: 05/21/14Last Fill Quantity: 90, # refills: 1 Last Office Visit with [facility] primary care provider: 09/05/13 Medication is being filled for 1 time refill only due to: Patient overdue for office visit.Bita Sigala RN POTASSIUM Date Value Ref Range Status 03/21/2014 4.4 3.4 - 5.3 mmol/L Final CREATININE Date Value Ref Range Status 03/21/2014 1.00 0.66 - 1.25 mg/dL Final BP Readings from Last 3 Encounters: 09/05/13 146/86 03/06/13 145/83 02/28/13 152/80 documented in this encounter Plan of Treatment Upcoming Encounters Date Type Specialty Care Team Description 06/18/2022 Ancillary Procedure Cardiology Abdi Bailey MD [address] [place] [id number] (Wo rk) documented as of this encounter Visit Diagnoses Diagnosis Unspecified essential hypertension - Yadira carballo documented in this encounter Care Teams Storeroom Supervisor Relationship Specialty Start Date End Date Christian Steiner MD PCP - General Internal Medicine 08/30/12 Christian Steiner MD PCP - Assigned PCP 08/11/1208/16/18 Christian Steiner MD Assigned PCP 08/11/12 02/22/21 documented as of this encounter
--- OUTSIDE RECORDS SUMMARY | 2022-04-27 07:39 | XMS_ITS | Encounter Summary ---
:1935 Author Organization [place] Address [address] [place] [address] Care Team Providers Name Role Phone Thee Pereyra MD Primary Care Provider Unavailable Thee Pereyra MD Unavailable Unavailable Thee Pereyra MD Unavailable Unavailable Reason for Visit Reason Comments Hypertension Diabetes Lipids Encounter Details Date Type Department Care Team Description 01/30/2015 Office Visit [facility] Thee Pereyra Type 2 di abetes, HbA1C goal < 8% (H) (Primary Dx); Clinic Smiley Arellano MD Hypertens ion goal BP (blood pressure) < 140/90; [facility] Hyperlipidemia LDL goal <100 ; [address] Need for prophylactic vaccination against Streptococcus pneumoniae (pneumococcus) [address] [address] Social History Tobacco Use Types [...] Reading Time Taken Comments Blood Pressure 136/80 01/30/2015 9:59 AM CDT Pulse 63 01/30/2015 9:59 AM CDT Temperature 36.7 ??C (98 ??F) 01/30/2015 9:59 AM CDT Respiratory Rate 16 01/30/2015 9:59 AM CDT Oxygen Saturation 98% 01/30/2015 9:59 AM CDT Inhaled Oxygen Concentration - - Weight 95.7 kg (211 lb) 01/30/2015 9:59 AM CDT Height - - Body Mass Index 28.62 09/05/2013 8:29 AM CDT documented in this encounter Patient Instructions Patient InstructionsThee Pereyra MD - 01/30/2015 10:32 AM CDT I will let you know your lab results. Please see me in 6 months or earlier if needed. documented in this encounter Progress Notes Thee Pereyra MD - 01/30/2015 9:57 AM CDT SUBJECTIVE: Humberto Siddiqui is a 79 year old male who presents to clinic today for the following health issues: Diabetes Follow-up ?? Patient is checking blood sugars: rarely. Results range from 120 to 150 ?? Diabetic concerns: None ?? Symptoms of hypoglycemia (low blood sugar): none ?? Paresthesias (numbness or burning in feet) or sores: No ?? Date of last diabetic eye exam: 2 months ago Hyperlipidemia Follow-Up ?? Rate your low fat/cholesterol diet?: good ?? Taking statin? Yes, no muscle aches from statin ?? Other lipid medications/supplements?: none Hypertension Follow-up ?? Outpatient blood pressures are being checked at home. Results are 130/73. ?? Low Salt Diet: no added salt ?? Amount of exercise or physical activity: 6-7 days/week for an average of 30- 45 minutes ?? Problems taking medications regularly: No ?? Medication side effects: none ?? Diet: regular (no restrictions) (My note starts here.) States he is stable, including wrt prostate issues. Last visit with me was1.5 yrs ago; had labs no o.v.in 03/27. Problem list and histories reviewed & adjusted, as indicated. Additional history: as documented Current Outpatient Prescriptions Medication Sig Dispense Refill ??? metFORMIN (GLUCOPHAGE) 1000 MG tablet TAKE 1 TABLET BY MOUTH TWICE DAILY 60 tablet 0 ??? lisinopril (PRINIVIL,ZESTRIL) 10 MG tablet TAKE 1 TABLET BY MOUTH DAILY 90 tablet 0 ??? glipiZIDE (GLUCOTROL) 5 MG tablet TAKE 1 TABLET BY MOUTH ONCE A DAY 90 tablet 3 ??? atorvastatin (LIPITOR) 20 MG tablet TAKE 1 TABLET BY MOUTH DAILY 90 tablet 3 ??? cinnamon 500 MG [...] Take by mouth daily. No Known Allergies Recent Labs Lab Test 03/21/14 0858 03/21/14 0857 08/29/13 0821 02/07/13 0838 02/07/13 0836 05/03/12 A1C -- 6.7* 7.1* -- 6.7* 6.5* LDL -- 101 -- -- 109 94 HDL -- 56 -- -- 41 51 TRIG -- 51 -- -- 68 70 ALT -- 29 -- -- 45 -- CR -- 1.00 -- -- 1.30* 1.03 GFRESTIMATED -- 73 -- -- 54* -- GFRESTBLACK -- 88 -- -- 65 -- MICROALBUMIN 5.21 -- -- Unable to calculate -- <30 POTASSIUM -- 4.4 -- -- 4.2 4.4 BP Readings from Last 3 Encounters: 01/30/15 136/80 09/05/13 146/86 03/06/13 145/83 Wt Readings from Last 3 Encounters: 01/30/15 211 lb (95.709 kg) 09/05/13 217 lb (98.431 kg) 03/06/13 216 lb (97.977 kg) ROS: Constitutional, HEENT, cardiovascular, pulmonary, gi and gu systems are negative, except as otherwise noted. OBJECTIVE: BP 136/80 mmHg Pulse 63 Temp(Src) 98 ??F (36.7 ??C) (Tympanic) Resp 16 Wt 211 lb (95.709 kg) SpO2 98% Body mass index is 28.61 kg/(m^2). GENERAL APPEARANCE: healthy, alert and no distress RESP: lungs clear to auscultation - no rales, rhonchi or wheezes CV: regular rates and rhythm, normal S1 S2, no S3 or S4 and no murmur, click or rub DIABETIC FOOT EXAM: normal DP and PT pulses Diagnostic test results: pending ASSESSMENT/PLAN: ICD-10-CM ICD-9-CM 1. Type 2 diabetes, HbA1C goal < 8% E11.9 250.00 metFORMIN (GLUCOPHAGE) 1000 MG tablet glipiZIDE (GLUCOTROL) 5 MG tablet Comprehensive metabolic panel (BMP + Alb, Alk Phos, ALT, AST, Total. Bili, TP) Hemoglobin A1c 2. Hypertension goal BP (blood pressure) < 140/90 I10 401.9 lisinopril (PRINIVIL,ZESTRIL) 10 MG tablet 3. Hyperlipidemia LDL goal <100 E78.5 272.4 atorvastatin (LIPITOR) 20 MG tablet LDL cholesterol direct 4. Need for prophylactic vaccination against Streptococcus pneumoniae (pneumococcus) Z23 V03.82 Pneumococcal vaccine 13 valent (Prevnar) 1st Administration [63774] Multiple issues. Overall stable. So far, has not needed frequent glucose monitoring. Patient Instructions I will let you know your lab results. Please see me in 6 months or earlier if needed. Thee Pereyra MD [facility] Results for orders placed or performed in visit on 01/30/15 Comprehensive metabolic panel (BMP + Alb, Alk Phos, ALT, AST, Total. Bili, TP) Result Value Ref Range Sodium 137 133 - 144 mmol/L Potassium 4.7 3.4 - 5.3 mmol/L Chloride 101 94 - 109 mmol/L Carbon Dioxide 28 20 - 32 mmol/L Anion Gap 8.3 3 - 14 mmol/L Glucose 191 (H) 70 - 99 mg/dL Urea Nitrogen 20 7 - 30 mg/dL Creatinine 1.10 0.66 - 1.25 mg/dL GFR Estimate 65 >60 mL/min/1.7m2 GFR Estimate If Black 79 >60 mL/min/1.7m2 Calcium 9.3 8.5 - 10.4 mg/dL Bilirubin Total 0.6 0.2 - 1.3 mg/dL Albumin 4.1 3.4 - 5.0 g/dL Protein Total 7.2 6.8 - 8.8 g/dL Alkaline Phosphatase 80 40 - 150 U/L ALT 26 0 - 70 U/L AST 18 0 - 45 U/L LDL cholesterol direct Result Value Ref Range LDL Cholesterol Direct 102 0 - 129 mg/dL Hemoglobin A1c Result Value Ref Range Hemoglobin A1C 7.3 (H) 4.3 - 6.0 % Letter sent. Your diabetes control is not quite as good. The A1C of 7.3 correlates to an average blood sugar of approximately 159. Please work harder on restricting carbohydrates ( starches, sweets, etc). In addition,your LDL or bad cholesterol is too high. We need to increase the atorvastatin dose to 40 mg per day. I have sent an Rx to your pharmacy for the new dosage. You can finish up the 20 mg tablets by taking2 per day. We should recheck some of these labs again in 6 months. See you then. documented in this encounter Nursing Notes Morena Salomon - 01/30/2015 10:00 AM CDT Chief Complaint Patient presents with ??? Hypertension ??? Diabetes ??? Lipids Initial BP 136/80 mmHg Pulse 63 Temp(Src) 98 ??F (36.7 ??C) (Tympanic) Resp 16 Wt 211 lb (95.709 kg) SpO2 98% Estimated body mass index is 28.61 kg/(m^2) as calculated from the following: Height as of 09/05/14: 6' (1.829 m). Weight as of this encounter: 211 lb (95.709 kg). BP completed using cuff size: regular documented in this encounter Miscellaneous Notes Addendum Note - Thee Pereyra MD - 01/31/2015 12:03 PM CDT Addended by: THEE PEREYRA on: 01/31/2015 12:03 PM Modules accepted: Orders documented in this encounter Plan of Treatment Upcoming Encounters Date Type Specialty Care Team Description 06/18/2022 Ancillary Procedure Cardiology Abdi Bailey MD [address] [place] [address] (Wo rk) documented as of this encounter Procedures Procedure Name Priority Date/Time Associated Diagnosis Comme nts LDL CHOLESTEROL Routine 01/30/2015 10:31 Hyperlipidemia LDL Re sults for this DIRECT AM CDT goal <100 procedure are i n the results section. HEMOGLOBIN A1C Routine 01/30/2015 10:31 Type 2 diabetes, HbA1C Results for this AM CDT goal < 8% (H) procedure are in the results section. COMPREHENSIVE Routine 01/30/2015 10:31 Type 2 diabetes, HbA1C Results for this METABOLIC PANEL AM CDT goal < 8% (H) procedure a re in the results section. documented in this encounter Results (ABNORMAL) Hemoglobin A1c (01/30/2015 10:31 AM CDT) [facility] gist Method Time Signature Hemoglobin A1C 7.3 (H) 4.3 - 6.0 [facility] Specimen Anatomical Collection Method Collection Time Receive d Time (Source) Location / / Volume Laterality Blood specimen 01/30/2015 10:31 5 (specimen) AM CDT 10:36 AM CDT Thee Pereyra MD LAB - BLOOD ORDERABLES Performing Organization Address City/State/ZIP Code Phon e Number [facility] [address] [place] [address] [place] [address] [facility] LDL cholesterol direct (01/30/2015 10:31 AM CDT) Analysis Performed At [facility] logist Time Signature LDL Cholesterol 102 0 - 129 [facility] mg/dL [facility] Comment: Optimal: ? <100 mg/dL Near Optimal: ? 100-129 mg/dL Borderline High: ??130-159 mg/dL High: ? 160-189 mg/dL Very high: ??greater than or equal to 1 90 mg/dL Cannot estimate LDL when triglyceride e xceeds 400 mg/dL Specimen Anatomical Collection Method Collection Time Receive d Time (Source) Location / / Volume Laterality Blood specimen 01/30/2015 10:31 5 (specimen) AM CDT 10:36 AM CDT Thee Pereyra MD LAB - BLOOD ORDERABLES Performing Organization Address City/State/ZIP Code Phon e Number [facility] [address] [place] [address] [place] [facility] (ABNORMAL) Comprehensive metabolic panel (BMP + Alb, Alk Phos, ALT, AST, Total. Bili, TP) (01/30/2015 10:31 AM CDT) Analysis Performed At Patho logist Time Signature Sodium 137 133 - 144 [place] mmol/L [facility] Potassium 4.7 3.4 - 5.3 [place] mmol/L [facility] Chloride 101 94 - 109 [place] mmol/L [facility] Carbon Dioxide 28 20 - 32 [place] mmol/L [facility] Anion Gap 8.3 3 - 14 [place] mmol/L [facility] Glucose 191 (H) 70 - 99 [place] mg/dL [facility] Comment: Fasting specimen Urea Nitrogen 20 7 - 30 mg/dL [place] [facility] Creatinine 1.10 0.66 - 1.25 mg/dL [place] [facility] GFR Estimate 65 >60 mL/min/1.7m2 [place] [facility] GFR Estimate If Black 79 >60 mL/min/1.7m2 [facility] Calcium 9.3 8.5 - 10.4 mg/dL [place] [facility] Bilirubin Total 0.6 0.2 - 1.3 mg/dL [facility] Albumin 4.1 3.4 - 5.0 g/dL [facility] S [facility] Protein Total 7.2 6.8 - 8.8 g/dL [place] [facility] Alkaline Phosphatase 80 40 - 150 U/L [facility] EW [facility] ALT 26 0 - 70 U/L [facility] AST 18 0 - 45 U/L [facility] Specimen Anatomical Collection Method Collection Time Receive d Time (Source) Location / / Volume Laterality Blood specimen 01/30/2015 10:31 5 (specimen) AM CDT 10:36 AM CDT Thee Pereyra MD LAB - BLOOD ORDERABLES Performing Organization Address City/State/ZIP Code Phon e Number [facility] [address] [place] [address] [place] documented in this encounter Visit Diagnoses Diagnosis Type 2 diabetes, HbA1C goal < 8% (H) - P rimary Type II or unspecified type diabetes andrea litus without mention of complication, not stated as uncontrolled Hypertension goal BP (blood pressure) < 140/90 Unspecified essential hypertension Hyperlipidemia LDL goal <100 Other and unspecified hyperlipidemia Need for prophylactic vaccination agains t Streptococcus pneumoniae (pneumococcus) Need for prophylactic vaccination agains t streptococcus pneumoniae (pneumococcus) documented in this encounter Care Teams Insurance Follow Up Rep Relationship Specialty Start Date End Date Thee Pereyra MD PCP - General Internal Medicine 08/30/12 Thee Pereyra MD PCP - Assigned PCP 08/11/1208/16/18 Thee Pereyra MD Assigned PCP 08/11/12 02/22/21 documented as of this encounter
--- OUTSIDE RECORDS SUMMARY | 2022-04-27 07:39 | XMS_ITS | Encounter Summary ---
:1935 Author Organization [place] Address [address] [place] [address] Care Team Providers Name Role Phone Christian Steiner MD Primary Care Provider Unavailable Christian Steiner MD Unavailable Unavailable Christian Steiner MD Unavailable Unavailable Reason for Visit Reason Comments Medication Refill Accu-chek Lakesha Plus test st rips Encounter Details Date Type Department Care Team Description 05/30/2015 Refill [facility] Christian Steiner, Medication Refill [facility] jeff BARRETT (Accu-chek Lakesha Plus [address] [facility] [address] test strips ) [address] [place] [address] Social History Tobacco Use Types Packs/Day Years Used Date Smoking Tobacco: Former Cigarettes Quit : 02/29/1980 Smokeless Tobacco: Never Alcohol Use Standard Drinks/Week Comments Yes 0 (1 standard drink = 0.6 oz pure alcoho l) occasionally Sex Assigned at Date Recorded Not on file documented as of this encounter Miscellaneous Notes Telephone Encounter - Sulma Horta RN - 05/30/2015 1:27 PM CST Accu-chek Lakesha Plus test strip Last Written Prescription Date: ? Last Fill Quantity: ?, # refills: ? Last Office Visit with [facility] primary care provider: 01/30/15 Pt tests QD or less Due for appointment Jul 2015 Prescription approved per [facility] Refill Protocol. Rx printed signed and faxed [facility] [employer] documented in this encounter Plan of Treatment Upcoming Encounters Date Type Specialty Care Team Description 06/18/2022 Ancillary Procedure Cardiology Li, Huagui, MD [address] [place] [id number] (Wo rk) documented as of this encounter Visit Diagnoses Diagnosis Type 2 diabetes mellitus without complic ation - Primary documented in this encounter Care Teams Warranty Administrator Relationship Specialty Start Date End Date Christian Steiner MD PCP - General Internal Medicine 08/30/12 Christian Steiner MD PCP - Assigned PCP 08/11/1208/16/18 Christian Steiner MD Assigned PCP 08/11/12 02/22/21 documented as of this encounter
--- OUTSIDE RECORDS SUMMARY | 2022-04-27 07:39 | XMS_ITS | Encounter Summary ---
:1935 Author Organization [place] Address [address] [place] [address] Care Team Providers Name Role Phone Christian Steiner MD Primary Care Provider Unavailable Christian Steiner MD Unavailable Unavailable Christian Steiner MD Unavailable Unavailable Humberto Good MD Unavailable Ke Hernandes MD Unavailable Ina Sheriff MD Primary Care Provider [phone] Herson Licea MD Unavailable Ke Hernandes MD Unavailable Reason for Visit Reason Comments Medication Refill metFORMIN (GLUCOPHAGE) 1000 MG tablet Encounter Details Date Type Department Care Team Description 09/24/2014 Refill [facility] Christian Steiner, Medication Refill [facility] Reagan aguilar MD (metFORMIN (GLUCOPHAGE) [address] [facility] 1000 MG tablet) [address] [place] [address] Social History Tobacco Use Types Packs/Day Years Used Date Smoking Tobacco: Former Cigarettes Quit : 02/29/1980 Smokeless Tobacco: Never Alcohol Use Standard Drinks/Week Comments Yes 0 (1 standard drink = 0.6 oz pure alcoho l) occasionally Sex Assigned at Date Recorded Not on file documented as of this encounter Miscellaneous Notes Telephone Encounter - Aishwarya Nash RN - 09/25/2014 8:16 AM CDT Routing refill request to provider for review/approval because: Patient needs to be seen because it has been more than 1 year since last office visit. Telephone Encounter - Francisca Lee MA - 09/24/2014 3:21 PM CDT Metformin (Glucophage) 1000MG Last Written Prescription Date: 03/26/2014 Last Fill Quantity: 180, # refills: 1 Last Office Visit with [facility] primary care provider: 09/05/2013 MICROL 5 03/21/2014 MICROALBUMIN 5.21 03/21/2014 Creatinine Date Value Ref Range Status 03/21/2014 1.00 0.66 - 1.25 mg/dL Final ] CHOL 167 03/21/2014 HDL 56 03/21/2014 LDL 101 03/21/2014 TRIG 51 03/21/2014 CHOLHDLRATIO 3.0 03/21/2014 AST 25 03/21/2014 ALT 29 03/21/2014 BP Readings from Last 3 Encounters: 09/05/13 146/86 03/06/13 145/83 03/06/13 145/83 A1C 6.7 03/21/2014 A1C 7.1 08/29/2013 A1C 6.7 02/07/2013 A1C 6.5 05/03/2012 A1C 6.2 03/20/2011 Potassium Date Value Ref Range Status 03/21/2014 4.4 3.4 - 5.3 mmol/L Final documented in this encounter Plan of Treatment Upcoming Encounters Date Type Specialty Care Team Description 06/18/2022 Ancillary Procedure Cardiology Abdi Bailey MD [address] [place] [id number] (Wo rk) documented as of this encounter Visit Diagnoses Diagnosis Type II or unspecified type diabetes andrea litus without mention of complication, not stated as uncontrolled - Primary documented in this encounter Care Teams Tube Coater Relationship Specialty Start Date End Date Christian Steiner MD PCP - General Internal Medicine 08/30/12 Christian Steiner MD PCP - Assigned PCP 08/11/1208/16/18 Ina Sheriff, PCP - General Family Medicine 01/30/[address] [address] Christian Steiner MD Assigned PCP 08/11/12 02/22/21 Humberto Good, Assigned Surgical 04/05/20 02/01/21 MD Provider [address] [place], [place] [address] Ke Hernandes, Assigned Heart and 04/28/20 10/11/21 MD Vascular Provider [address] [place] [id number] Herson Licea, Assigned Surgical 02/02/21 MD Provider [address] [place], [place] [id number] Ke Hernandes, Assigned Heart and 12/13/21 MD Vascular Provider [address] [place] [id number] documented as of this encounter
--- OUTSIDE RECORDS SUMMARY | 2022-04-27 07:39 | XMS_ITS | Encounter Summary ---
:1935 Author Organization [place] Address [address] [place] [address] Care Team Providers Name Role Phone Christian Steiner MD Primary Care Provider Unavailable Christian Steiner MD Unavailable Unavailable Christian Steiner MD Unavailable Unavailable Reason for Visit Reason Comments Diabetes Encounter Details Date Type Department Care Team Description 07/23/2015 Office Visit [facility] Christian Steiner Type 2 di abetes mellitus without complication (Primary Dx); Clinic Smiley Arellano MD Hypertens ion goal BP (blood pressure) < 140/90; [facility] Hyperlipidemia LDL goal <100 ; [address] [facility] Screening for diabetic peripheral neuropathy [address] [place] [address] Social History Tobacco Use Types [...] Sign Reading Time Taken Comments Blood Pressure 130/68 07/23/2015 9:07 AM SURVEYOR CHAIN HELPER Pulse 68 07/23/2015 9:07 AM SURVEYOR CHAIN HELPER Temperature 36.4 ??C (97.5 ??F) 07/23/2015 9:07 AM SURVEYOR CHAIN HELPER Respiratory Rate 20 07/23/2015 9:07 AM SURVEYOR CHAIN HELPER Oxygen Saturation 98% 07/23/2015 9:07 AM SURVEYOR CHAIN HELPER Inhaled Oxygen Concentration - - Weight 96.2 kg (212 lb) 07/23/2015 9:07 AM SURVEYOR CHAIN HELPER Height 182.9 cm (6') 07/23/2015 9:07 AM SURVEYOR CHAIN HELPER Body Mass Index 28.75 07/23/2015 9:07 AM SURVEYOR CHAIN HELPER documented in this encounter Patient Instructions Patient InstructionsChristian Steiner MD - 07/23/2015 9:22 AM CST I will let you know your lab results. Let's plan to see you in 6 months or so. EYOR CHAIN HELPER documented in this encounter Progress Notes Christian Steiner MD - 07/23/2015 9:05 AM CST SUBJECTIVE: Humberto Siddiqui is a 80 year old male who presents to clinic today for the following health issues: Diabetes Follow-up ?? Patient is checking blood sugars: rarely. Results range from 100 to 170 max ?? Diabetic concerns: None ?? Symptoms of hypoglycemia (low blood sugar): none ?? Paresthesias (numbness or burning in feet) or sores: No ?? Date of last diabetic eye exam: 2014 ?? Amount of exercise or physical activity: occ. ?? Problems taking medications regularly: No ?? Medication side effects: none ?? Diet: diabetic (My note starts here.) In 01/26, we incr atorva to 40 mg per day. Checks glucoses occas. He feels great. Walks 3.7 mph on a treadmill. Problem list and histories reviewed & adjusted, as indicated. Current Outpatient Prescriptions Medication Sig Dispense Refill ??? ACCU-CHEK FRANCISCO PLUS test strip TEST EVERY DAY DIRECTED 100 each 1 ??? atorvastatin (LIPITOR) 40 MG tablet Take 1 tablet (40 mg) by mouth daily 90 tablet 3 ??? metFORMIN (GLUCOPHAGE) 1000 MG tablet TAKE 1 TABLET BY MOUTH TWICE DAILY 180 tablet 3 ??? lisinopril (PRINIVIL,ZESTRIL) 10 MG tablet Take 1 tablet (10 mg) by mouth daily 90 tablet 3 ??? glipiZIDE (GLUCOTROL) 5 MG [...] Allergies BP Readings from Last 3 Encounters: 07/23/15 130/68 01/30/15 136/80 09/05/13 146/86 Wt Readings from Last 3 Encounters: 07/23/15 212 lb (96.163 kg) 01/30/15 211 lb (95.709 kg) 09/05/13 217 lb (98.431 kg) ROS: Constitutional, HEENT, cardiovascular, pulmonary, gi and gu systems are negative, except as otherwise noted. OBJECTIVE: BP 130/68 mmHg Pulse 68 Temp(Src) 97.5 ??F (36.4 ??C) Resp 20 Ht 6' (1.829 m) Wt 212 lb (96.163 kg) BMI 28.75 kg/m2 SpO2 98% Body mass index is 28.75 kg/(m^2). GENERAL APPEARANCE: healthy, alert and no distress CV: regular rates and rhythm, normal S1 S2, no S3 or S4 and no murmur, click or rub DIABETIC FOOT EXAM: normal DP and PT pulses, no trophic changes or ulcerative lesions and normal sensory exam Diagnostic test results: pending ASSESSMENT/PLAN: ICD-10-CM 1. Type 2 diabetes mellitus without complication E11.9 2. Hypertension goal BP (blood pressure) < 140/90 I10 3. Hyperlipidemia LDL goal <100 E78.5 4. Screening for diabetic peripheral neuropathy Z13.89 FOOT EXAM Check labs and adjust medications as indicated. Patient Instructions I will let you know your lab results. Let's plan to see you in 6 months or so. Christian Steiner MD [facility] Results for orders placed or performed in visit on 07/23/15 HEMOGLOBIN A1C Result Value Ref Range Hemoglobin A1C 7.2 (H) 4.3 - 6.0 % MICROALBUMIN QUANTITATIVE RANDOM URINE Result Value Ref Range Creatinine Urine 94 mg/dL Microalbumin Urine 7 mg/L Microalbumin mg/g Cr 7.62 0 - 17 mg/g Cr Comprehensive metabolic panel (BMP + Alb, Alk Phos, ALT, AST, Total. Bili, TP) Result Value Ref Range Sodium 136 133 - 144 mmol/L Potassium 4.5 3.4 - 5.3 mmol/L Chloride 100 94 - 109 mmol/L Carbon Dioxide 27 20 - 32 mmol/L Anion Gap 9.3 3 - 14 mmol/L Glucose 204 (H) 70 - 99 mg/dL Urea Nitrogen 29 7 - 30 mg/dL Creatinine 1.10 0.66 - 1.25 mg/dL GFR Estimate 65 >60 mL/min/1.7m2 GFR Estimate If Black 78 >60 mL/min/1.7m2 Calcium 8.8 8.5 - 10.4 mg/dL Bilirubin Total 0.5 0.2 - 1.3 mg/dL Albumin 4.1 3.4 - 5.0 g/dL Protein Total 7.0 6.8 - 8.8 g/dL Alkaline Phosphatase 71 40 - 150 U/L ALT 29 0 - 70 U/L AST 23 0 - 45 U/L Lipid Profile (Chol, Trig, HDL, LDL calc) Result Value Ref Range Cholesterol 156 <200 mg/dL Triglycerides 69 <150 mg/dL HDL Cholesterol 50 >39 mg/dL LDL Cholesterol Calculated 92 <100 mg/dL Non HDL Cholesterol 106 <130 mg/dL Letter sent. Your lab results are stable. Keep taking the same medications. Your diabetes control isok. The A1C of 7.2 correlates to an average blood sugar of approximately 156. Your kidney and liver function tests are normal. EYOR CHAIN HELPER documented in this encounter Nursing Notes Mya Salvador LPN - 07/23/2015 9:08 AM CST Chief Complaint Patient presents with ??? Diabetes Initial BP 130/68 mmHg Pulse 68 Temp(Src) 97.5 ??F (36.4 ??C) Resp 20 Ht 6' (1.829 m) Wt 212 lb (96.163 kg) BMI 28.75 kg/m2 SpO2 98% Estimated body mass index is 28.75 kg/(m^2) as calculated from the following: Height as of this encounter: 6' (1.829 m). Weight as of this encounter: 212 lb (96.163 kg). BP completed using cuff size: large Mya Salvador LPN EYOR CHAIN HELPER documented in this encounter Plan of Treatment Upcoming Encounters Date Type Specialty Care Team Description 06/18/2022 Ancillary Procedure Cardiology Abdi Bailey MD [address] [place] [id number] (Wo rk) documented as of this encounter Procedures Procedure Name Priority Date/Time Associated Diagnosis Comme nts ALBUMIN RANDOM URINE Routine 07/23/2015 9:34 Type 2 diabetes R esults for this QUANTITATIVE AM SURVEYOR CHAIN HELPER mellitus without procedure a re in complication the results section. LIPID PROFILE Routine 07/23/2015 9:34 Hyperlipidemia LDL Resul ts for this AM SURVEYOR CHAIN HELPER goal <100 procedure are i n the results section. HEMOGLOBIN A1C Routine 07/23/2015 9:34 Type 2 diabetes Results for this AM SURVEYOR CHAIN HELPER mellitus without procedure a re in complication the results section. COMPREHENSIVE Routine 07/23/2015 9:34 Type 2 diabetes Results for this METABOLIC PANEL AM SURVEYOR CHAIN HELPER mellitus without procedur e are in complication the results section. C FOOT EXAM Routine 07/23/2015 9:22 Screening for diabetic AM SURVEYOR CHAIN HELPER peripheral neuropathy documented in this encounter Results Lipid Profile (Chol, Trig, HDL, LDL calc) (07/23/2015 9:34 AM SURVEYOR CHAIN HELPER) P athologist Signature Cholesterol 156 <200 mg/dL [facility] Triglycerides 69 <150 mg/dL [facility] S [facility] Comment: Fasting specimen HDL Cholesterol 50 >39 mg/dL [place] [facility] LDL Cholesterol Calculated 92 <100 mg/dL FA [facility] Comment: Desirable: <100 mg/dl Non HDL Cholesterol 106 <130 mg/dL [facility] Specimen Anatomical Collection Method Collection Time Receive d Time (Source) Location / / Volume Laterality Blood specimen 07/23/2015 9:34 AM 016 9:39 (specimen) SURVEYOR CHAIN HELPER AM SURVEYOR CHAIN HELPER Christian Steiner MD LAB - BLOOD ORDERABLES Performing Organization Address City/State/ZIP Code Phon e Number [facility] [address] [place] [address] [place] XERXES (ABNORMAL) Comprehensive metabolic panel (BMP + Alb, Alk Phos, ALT, AST, Total. Bili, TP) (07/23/2015 9:34 AM SURVEYOR CHAIN HELPER) Analysis Performed At Patho logist Time Signature Sodium 136 133 - 144 [place] mmol/L [facility] Potassium 4.5 3.4 - 5.3 [place] mmol/L [facility] Chloride 100 94 - 109 [place] mmol/L [facility] Carbon Dioxide 27 20 - 32 [place] mmol/L [facility] Anion Gap 9.3 3 - 14 [place] mmol/L [facility] Glucose 204 (H) 70 - 99 [place] mg/dL [facility] Comment: Fasting specimen Urea Nitrogen 29 7 - 30 mg/dL [place] [facility] Creatinine 1.10 0.66 - 1.25 mg/dL [place] [facility] GFR Estimate 65 >60 mL/min/1.7m2 [place] C [facility] GFR Estimate If Black 78 >60 mL/min/1.7m2 [facility] Calcium 8.8 8.5 - 10.4 mg/dL [facility] ICS [facility] Bilirubin Total 0.5 0.2 - 1.3 mg/dL [facility] Albumin 4.1 3.4 - 5.0 g/dL [facility] S [facility] Protein Total 7.0 6.8 - 8.8 g/dL [place] [facility] Alkaline Phosphatase 71 40 - 150 U/L [facility] ALT 29 0 - 70 U/L [facility] AST 23 0 - 45 U/L [facility] Specimen Anatomical Collection Method Collection Time Receive d Time (Source) Location / / Volume Laterality Blood specimen 07/23/2015 9:34 AM 016 9:39 (specimen) SURVEYOR CHAIN HELPER AM SURVEYOR CHAIN HELPER Christian L Ostlund MD LAB - BLOOD ORDERABLES Performing Organization Address City/[facility]/ZIP [facility] Phon e Number [facility] [address] [place] [address] [place] X[place] MICROALBUMIN QUANTITATIVE RANDOM URINE (07/23/2015 9:34 AM SURVEYOR CHAIN HELPER) P athologist Signature Creatinine 94 mg/dL [place] Urine [facility] Albumin Urine 7 mg/L [place] mg/L [facility] Albumin Urine 7.62 0 - 17 [place] mg/g Cr mg/g Cr [facility] Specimen Anatomical Collection Method Collection Time Receive d Time (Source) Location / / Volume Laterality Urine specimen 07/23/2015 9:34 AM 016 9:39 (specimen) SURVEYOR CHAIN HELPER AM SURVEYOR CHAIN HELPER Christian Steiner MD LAB - URINE ORDERABLES Performing Organization Address City/[facility]/ZIP Code Phon e Number [facility] [address] [place] [address] [phone] [facility] [address] [place] [address], U [phone] (ABNORMAL) HEMOGLOBIN A1C (07/23/2015 9:34 AM SURVEYOR CHAIN HELPER) Patholo gist Method Time Signature Hemoglobin A1C 7.2 (H) 4.3 - 6.0 [facility] Specimen Anatomical Collection Method Collection Time Receive d Time (Source) Location / / Volume Laterality Blood specimen 07/23/2015 9:34 AM 016 9:39 (specimen) SURVEYOR CHAIN HELPER AM SURVEYOR CHAIN HELPER Christian Steiner MD LAB - BLOOD ORDERABLES Performing Organization Address City/[facility]/ZIP Code Phon e Number [facility] [address] [place] [address] [place] XERXES documented in this encounter Visit Diagnoses Diagnosis Type 2 diabetes mellitus without complic ation - Primary Hypertension goal BP (blood pressure) < 140/90 Unspecified essential hypertension Hyperlipidemia LDL goal <100 Other and unspecified hyperlipidemia Screening for diabetic peripheral neurop athy Special screening for other neurological conditions documented in this encounter Care Teams Aoc Director Combat Plans Officer Relationship Specialty Start Date End Date Christian Steiner MD PCP - General Internal Medicine 08/30/12 Christian Steiner MD PCP - Assigned PCP 08/11/1208/16/18 Christian Steiner MD Assigned PCP 08/11/12 02/22/21 documented as of this encounter
--- OUTSIDE RECORDS SUMMARY | 2022-04-27 07:39 | XMS_ITS | Encounter Summary ---
:1935 Author Organization [place] Address [facility] [place] [address] Care Team Providers Name Role Phone Christian Steiner MD Primary Care Provider Unavailable Christian Steiner MD Unavailable Unavailable Christian Steiner MD Unavailable Unavailable Encounter Details Date Type Department Care Team Description 04/04/[address] [facility] Humberto Gudino Type 2 diabetes Clinic [place]clenny MD [facility] [address] [facility] (Primary Dx) [facility] [address] [place] [address] [address] [place], [place] [address] [place], [place] [phone] [address] Social History Tobacco Use Types Packs/Day Years [...] Bailey MD [address] [place] [id number] (Wo rk) documented as of this encounter Visit Diagnoses Diagnosis Type 2 diabetes mellitus without complic ation (H) - Primary documented in this encounter Care Teams Tip Cutter Relationship Specialty Start Date End Date Christian Steiner MD PCP - General Internal Medicine 08/30/12 Christian Steiner MD PCP - Assigned PCP 08/11/1208/16/18 Christian Steiner MD Assigned PCP 08/11/12 02/22/21 documented as of this encounter
--- OUTSIDE RECORDS SUMMARY | 2022-04-27 07:39 | XMS_ITS | Encounter Summary ---
:1935 Author Organization [place] Address [facility] [place] [address] Care Team Providers Name Role Phone Christian Steiner MD Primary Care Provider Unavailable Christian Steiner MD Unavailable Unavailable Christian Steiner MD Unavailable Unavailable Reason for Visit Auth/Cert Specialty Diagnoses / Procedures Referred By Contact Refer red To Contact Gastroenterology Diagnoses history of colonic polyps Rh Endoscopy Procedures COLONOSCOPY [address] [place] [address] Phone: Fax: Referral ID Status Reason Start Date Expiration Date Visits Requ ested Visits Authorized [id number] 1 1 Encounter Details Date Type Department Care Team Description 04/07/[address] [facility] Aldo Clarke , Endoscopy Araseli BARRETT [address] [place], [place] GASTROINTESTINAL [address] [address] [phone] [place], [place] [id number] (Wo rk) Social History Tobacco Use Types Packs/Day Years Used Date Smoking Tobacco: Former Cigarettes Quit : 02/29/1980 Smokeless Tobacco: Never Alcohol Use Standard Drinks/Week Comments Yes 0 (1 standard drink = 0.6 oz pure alcoho l) occasionally Sex Assigned at Date Recorded Not on file documented as of this encounter Last Filed Vital Signs Vital Sign Reading Time Taken Comments Blood Pressure 121/80 04/07/2016 1:20 PM CDT Pulse - - Temperature - - Respiratory Rate 16 04/07/2016 1:20 PM CDT Oxygen Saturation 97% 04/07/2016 1:20 PM CDT Inhaled Oxygen Concentration - - [...] 06/18/2022 Ancillary Procedure Cardiology Abdi Bailey MD [address] [place] [id number] (Wo rk) documented as of this encounter [...] Glucose by meter (04/07/2016 12:29 PM CDT) athologist Signature Glucose 194 (H) 70 - 99 POINT OF CARE mg/dL TEST, GLUCOSE Specimen Anatomical Collection Method Collection Time Receive d Time (Source) Location / / Volume Laterality 04/07/2016 12:29 04/07/2016 PM CDT 12:34 PM CDT Aldo Clarke MD [facility] POCT Performing Organization Address City/State/ZIP Code Phon e Number [facility] POINT OF CARE TEST, GLUCOSE POINT OF CARE TEST, GLUCOSE COLONOSCOPY (04/07/2016 12:22 PM CDT) [facility] gist Method Time Signature COLONOSCOPY [facility] RAD IOLOGY RESULTS Patient Name: Humberto Siddiqui ? Procedure Date: 04/07/2016 12:22 PM ? Accou nt Number: [id number] Date of : 1935 ? Admit Type: Outp atient Age: 80 ? Gender: Male Attending MD: Aldo Clarke MD ?Instrument Name: 131 Procedure: ?Colonoscopy Indications: ?High [place] colon cancer surveillance: Personal ?history of colonic po lyps Providers: ?Aldo Clarke MD (Doctor), Michael Villagran RN ?(Nurse) Referring MD: ? Christian Steiner MD (Referana evans MD) Medicines: ?Midazo flowers 1 mg [...] and ?oxygen saturations were monitored continuously. The ?Yub Peds Colonoscope Model #PCF-H190L, ?Endora#131, SN#[id number] was introduced through the ?anus and advanced [...] history of colonic polyps CPT copyright 2013 [employer]. All rights reserved. The codes documented in this report are prelimin leila and upon salsa dance instructor review may be revised to meet current compliance requirements. Electronically signed by Aldo Clarke MD Aldo Clarke MD 04/07/2016 12:52 PM I was physically present for the entire viewing portion of t he exam. Number of Addenda: 0 Note Initiated On: 04/07/2016 12:22 PM MRN: ?[id number] Procedure Date: ? 04/07/2016 12:22:46 PM Scope [...] Diagnoses Not on filedocumented in this encounter Active and Recently Administered Medications Times are shown in CDT. PRN Medication Order 04/05/2016 04/06/2016 04/07/2016 fentaNYL Citrate (PF) (SUBLIMAZE) injection (CANCELED) 1232 (Given - Provider: Aldo Clarke MD) PRN, Starting 04/07/16 at 1232, Intra-procedure midazolam (VERSED) injection (CANCELED) 1232 (Given - Provider: Aldo Clarke MD) PRN, Starting 04/07/16 at 1232, Intra-procedure sodium chloride (PF) 0.9% PF flush 3 mL (CANCELED) 1232 (Given - Provider: Aldo Clarke MD) 3 mL, Intracatheter, EVERY 1 HOUR PRN, l ine flush, for peripheral IV flush post IV meds, Starting 04/07/16 at 1212, Pre-procedure documented in this encounter Care Teams Emergency Spill Response Technician Relationship Specialty Start Date End Date Christian Steiner MD PCP - General Internal Medicine 08/30/12 Christian Steiner MD PCP - Assigned PCP 08/11/1208/16/18 Christian Steiner MD Assigned PCP 08/11/12 02/22/21 documented as of this encounter
--- OUTSIDE RECORDS SUMMARY | 2022-04-27 07:39 | XMS_ITS | Encounter Summary ---
:1935 Author Organization [place] Address [facility] [place] [address] Care Team Providers Name Role Phone Christian Steiner MD Primary Care Provider Unavailable Christian Steiner MD Unavailable Unavailable Christian Steiner MD Unavailable Unavailable Encounter Details Date Type Department Care Team Description 03/03/2016 Orders Only [facility] Pro state cancer (H) [facility] [address] [place] [address] Social History Tobacco Use [...] [address] [facility] [address] [place], [place] [address] (Wo rk) documented as of this encounter Procedures Procedure Name Priority Date/Time Associated Comments Diagnosis PSA TUMOR MARKER Routine 03/03/2016 1:16 PM Prostate cancer (H ) Results for this CDT procedure are i n the results section. CALCIUM Routine 03/03/2016 1:16 PM Prostate cancer (H) Re sults for this CDT procedure are i n the results section. ALKALINE PHOSPHATASE Routine 03/03/2016 1:16 PM Prostate cance r (H) Results for this CDT procedure are i n the results section. documented in this encounter Results Alkaline phosphatase (03/03/2016 1:16 PM CDT) Analysis Performed At Patho logist Time Signature Alkaline 80 40 - 150 [place] Phosphatase U/L [facility] Specimen Anatomical Collection Method Collection Time Receive d Time (Source) Location / / Volume Laterality Blood specimen 03/03/2016 1:16 PM 016 1:21 (specimen) CDT PM CDT Humberto Good MD LAB - BLOOD ORDERABLES Performing Organization Address City/[facility]/ZIP Code Phon e Number [facility] [address] [place] [phone] Calcium (03/03/2016 1:16 PM CDT) P athologist Signature Calcium 8.9 8.5 - 10.1 [facility] mg/dL [facility] Specimen Anatomical Collection Method Collection Time Receive d Time (Source) Location / / Volume Laterality Blood specimen 03/03/2016 1:16 PM 016 1:21 (specimen) CDT PM CDT Humberto Good MD LAB - BLOOD ORDERABLES Performing Organization Address City/[facility]/ZIP Code Phon e Number [facility] [address] [place] [id number] PSA, tumor marker (03/03/2016 1:16 PM CDT) Patholo gist Method Time Signature PSA <0.01 0 - 4 ug/L [place] Assay Method: ??Chemiluminescence using Siemens [place] analyz er [facility] Specimen Anatomical Collection Method Collection Time Receive d Time (Source) Location / / Volume Laterality Blood specimen 03/03/2016 1:16 PM 016 1:21 (specimen) CDT PM CDT Humberto Good MD LAB - BLOOD ORDERABLES Performing Organization Address City/[facility]/ZIP Code Phon e Number [facility] [address] [place] [phone] documented in this encounter Visit Diagnoses Diagnosis Prostate cancer (H) Malignant neoplasm of prostate documented in this encounter Care Teams Utility Repairer Relationship Specialty Start Date End Date Christian Steiner MD PCP - General Internal Medicine 08/30/12 Christian Steiner MD PCP - Assigned PCP 08/11/1208/16/18 Christian Steiner MD Assigned PCP 08/11/12 02/22/21 documented as of this encounter
--- OUTSIDE RECORDS SUMMARY | 2022-04-27 07:39 | XMS_ITS | Encounter Summary ---
:1935 Author Organization [place] Address [facility] [place] [address] Care Team Providers Name Role Phone Christian Steiner MD Primary Care Provider Unavailable Christian Steiner MD Unavailable Unavailable Christian Steiner MD Unavailable Unavailable Encounter Details Date Type Department Care Team Description 08/29/2013 Orders Only [facility] Alexandra betes [facility], [facility] [address] [facility] [address] [place], [place] [address] Social History Tobacco Use Types Packs/Day [...] Ancillary Procedure Cardiology Abdi Bailey MD [address] [facility] [address] [place], [place] [address] (Wo rk) documented as of this encounter Procedures Procedure Name Priority Date/Time Associated Diagnosis Comme nts HEMOGLOBIN A1C Routine 08/29/2013 8:21 AM Diabetes mellitus, R esults for this CDT type 2 (H) procedure are i n the results section . documented in this encounter Results (ABNORMAL) Hemoglobin A1c (08/29/2013 8:21 AM CDT) [facility] Method Time Signature Hemoglobin A1C 7.1 (H) 4.3 - 6.0 [facility] Specimen Anatomical Collection Method Collection Time Receive d Time (Source) Location / / Volume Laterality Blood specimen 08/29/2013 8:21 AM 014 8:26 (specimen) CDT AM CDT Christian Steiner MD LAB - BLOOD ORDERABLES Performing Organization Address City/State/ZIP Code Phon e Number [facility] [address] [place] [address] [address] [facility] [address] [place] [address] [place] [address] documented in this encounter Visit Diagnoses Diagnosis Diabetes mellitus, type 2 (H) Type II or unspecified type diabetes andrea litus without mention of complication, not stated as uncontrolled documented in this encounter Care Teams Bookkeeper Relationship Specialty Start Date End Date Christian Steiner MD PCP - General Internal Medicine 08/30/12 Christian Steiner MD PCP - Assigned PCP 08/11/1208/16/18 Christian Steiner MD Assigned PCP 08/11/12 02/22/21 documented as of this encounter
--- OUTSIDE RECORDS SUMMARY | 2022-04-27 07:39 | XMS_ITS | Encounter Summary ---
:1935 Author Organization [place] Address [address] [place] [address] Care Team Providers Name Role Phone Christian Steiner MD Primary Care Provider Unavailable Christian Steiner MD Unavailable Unavailable OstChristian alaniz MD Unavailable Unavailable Reason for Visit Reason Comments Other 6 month check up with PSA Encounter Details Date Type Department Care Team Description 03/10/2016 Office Visit [facility] Humberto Good Personal history of Urology Clinic MD Tony malignant neoplasm of [place] [address] prostate (Primary Dx) [address] [facility] [address] [place], [place] [address] [place] [address] [phone] (Work) [phone] Social History Tobacco Use Types Packs/Day Years Used Date Smoking Tobacco: Former Cigarettes Quit : 02/29/1980 Smokeless Tobacco: Never Alcohol Use Standard Drinks/Week Comments Yes 0 (1 standard drink = 0.6 oz pure alcoho l) occasionally Sex Assigned at Date Recorded Not on file documented as of this encounter Last Filed Vital Signs Vital Sign Reading Time Taken Comments Blood Pressure 126/90 03/10/2016 1:38 PM CDT Pulse 76 03/10/2016 1:38 PM CDT Temperature - - Respiratory Rate - - Oxygen Saturation - - Inhaled Oxygen Concentration - - Weight 97.5 kg (215 lb) 03/10/2016 1:38 PM CDT Height - - Body Mass Index 29.16 07/23/2015 9:07 AM MANAGER USER EXPERIENCE documented in this encounter Progress Notes Humberto Good MD - 03/10/2016 1:54 PM CDT pleasure of seeing this very pleasant 80-year-old gentleman in consultation today. 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 At that time he was treated with 3 years of Lupron and combination radiation therapy. Subsequent to that he has continued on Lupron and bicalutamide. The PSA 6 months ago was< 0.01 , and once again today the PSA is< 0.01. His general health is otherwise stable, he has no other major complaints at this time. Serum calciumis 8.9 and the alkaline phosphatase is 80. He has no other major medical issues or complaints at the present time. Past Medical History Diagnosis Date ??? Diabetes mellitus (H) Type II dx approx. 2003 ? High cholesterol ??? Malignant neoplasm of prostate (H) 2002 Prostate cancer; radioactive seeds ; Dr. Mckee; casodex in 2012 Past Surgical History Procedure Laterality Date ??? Excise mass back 03/06/2013 Procedure: EXCISE MASS BACK; Excision Left Back Mass, and Right Back Mass; Surgeon: Abdirashid King MD; Location: [facility] OR Current outpatient prescriptions: ??? lisinopril (PRINIVIL,ZESTRIL) 10 MG tablet, TAKE 1 TABLET BY MOUTH ONCE DAILY, Disp: 90 tablet, Rfl: 0 ??? atorvastatin (LIPITOR) 40 MG tablet, TAKE 1 TABLET BY MOUTH DAILY, Disp: 90 tablet, Rfl: 0 ??? ACCU-CHEK FRANCISCO PLUS test strip, TEST EVERY DAY DIRECTED, Disp: 100 each, Rfl: 1 ??? metFORMIN (GLUCOPHAGE) 1000 MG tablet, TAKE 1 TABLET BY MOUTH TWICE DAILY, Disp: 180 tablet, Rfl: 3 ??? glipiZIDE (GLUCOTROL) 5 MG tablet, Take 1 tablet (5 mg) by mouth daily, Disp: 90 tablet, Rfl: 3 ??? cinnamon 500 MG CAPS, Take 1 capsule by mouth daily, Disp: , Rfl: ??? Calcium Carbonate-Vitamin D (CALCIUM 600 + D OR), Take 1 tablet by mouth daily, Disp: , Rfl: ??? Cholecalciferol (VITAMIN D) [...] ??? Multiple Vitamin (DAILY MULTIVITAMIN PO), Take by mouth., Disp: , Rfl: ??? Co-Enzyme Q-10 10 MG CAPS, Take by mouth daily., Disp: , Rfl: ROS: 10 point ROS neg other than the symptoms noted above in the HPI. Examination. BP 126/90 mmHg Pulse 76 Wt 97.523 kg (215 lb) Very pleasant gentleman in no acute distress, well-oriented in time place and person. HEENT. There is no evidence of jaundice, the mucous membranes are normal. There are no other remarkable features. Mental status. Normal. Skin. Normal. Respiratory system. The respiratory cycle is normal. Flank and back tenderness. There is no flank tenderness Neurologic exam. There are no focal abnormal central or peripheral neurological signs. Rectal examination. Good sphincter tone, all perianal sensation, Smooth rectal mucosa without hemorrhoids or fissures. Smooth soft and small prostate with palpable lateral lobes on each side but without evidence of tenderness, bogginess or nodules. No other remarkable features. Impression. He continues to be biochemically very well controlled 14 years after diagnosis of Laury 8 adenocarcinoma of prostate with a PSA of 290 at that time and then treated with hormonal treatment in combination radiation therapy. I have discussed the situation in detail with the patient today. I would like to commence intermittent hormone treatment today and, although we will continue with bicalutamide and going to stop Lupron today and observe progress without. Wound recommend that we repeat his PSA in 6 months time to continue to evaluate the situation. I did carefully explain entire situation with patient today. I answered all his questions Plan. 6 months for PSA and clinical examination. Time.30 minutes. Greater than 50% spent in consultation documented in this encounter Nursing Notes Fareed Nevarez, [place] FARMER - 03/10/2016 1:39 PM CDT Chief Complaint Patient presents with ??? Other 6 month check up with PSA Ryan Nevarez CMA documented in this encounter Plan of Treatment Upcoming Encounters Date Type Specialty Care Team Description 06/18/2022 Ancillary Procedure Cardiology Abdi Bailey MD [address] [place] [id number] (Wo rk) documented as of this encounter Visit Diagnoses Diagnosis Personal history of malignant neoplasm o f prostate - Primary documented in this encounter Care Teams Director Of Informatics Relationship Specialty Start Date End Date Christian Steiner MD PCP - General Internal Medicine 08/30/12 Christian Steiner MD PCP - Assigned PCP 08/11/1208/16/18 Christian Steiner MD Assigned PCP 08/11/12 02/22/21 documented as of this encounter
--- OUTSIDE RECORDS SUMMARY | 2022-04-27 07:39 | XMS_ITS | Encounter Summary ---
:1935 Author Organization [place] Address [facility] [place] [address] Care Team Providers Name Role Phone Christian Steiner MD Primary Care Provider Unavailable Christian Steiner MD Unavailable Unavailable Christian Steiner MD Unavailable Unavailable Reason for Visit Reason Comments Medication Refill glipiZIDE (GLUCOTROL) 5 MG t ablet Encounter Details Date Type Department Care Team Description 06/25/2014 Refill [facility] Christian Steiner, Medication Refill [facility] Reagan aguilar MD (glipiZIDE (GLUCOTROL) [address] [facility] [address] MG tablet) [address] [place] [address] Social History Tobacco Use Types Packs/Day Years Used Date Smoking Tobacco: Former Cigarettes Quit : 02/29/1980 Smokeless Tobacco: Never Alcohol Use Standard Drinks/Week Comments Yes 0 (1 standard drink = 0.6 oz pure alcoho l) occasionally Sex Assigned at Date Recorded Not on file documented as of this encounter Miscellaneous Notes Telephone Encounter - Carmen Monet CMA - 06/25/2014 9:01 AM CST Medication: glipiZIDE Last Fill Date: NA Last Fill Quantity: NA, # refills: NA Last Office Visit in Department Specialty: 09/05/2013 Routing refill request to provider for review/approval because: Drug not active on medication list SIBLE BRACES ORTHODONTIST documented in this encounter Plan of Treatment Upcoming Encounters Date Type Specialty Care Team Description 06/18/2022 Ancillary Procedure Cardiology Abdi Bailey MD [address] [place] [id number] (Wo rk) documented as of this encounter Visit Diagnoses Diagnosis Type 2 diabetes, HbA1C goal < 8% (H) - P rimary Type II or unspecified type diabetes andrea litus without mention of complication, not stated as uncontrolled documented in this encounter Care Teams Logistics And Planning Manager Relationship Specialty Start Date End Date Christian Steiner MD PCP - General Internal Medicine 08/30/12 Christian Steiner MD PCP - Assigned PCP 08/11/1208/16/18 Christian Steiner MD Assigned PCP 08/11/12 02/22/21 documented as of this encounter
--- OUTSIDE RECORDS SUMMARY | 2022-04-27 07:39 | XMS_ITS | Encounter Summary ---
:1935 Author Organization [place] Address [facility] [place] [address] Care Team Providers Name Role Phone Christian Steiner MD Primary Care Provider Unavailable Christian Steiner MD Unavailable Unavailable Christian Steiner MD Unavailable Unavailable Encounter Details Date Type Department Care Team Description 01/30/[address] [facility] Humberto Good Prostate cancer (H) [facility] MD Tony (Primary Dx) [address] [place] [address] [phone] [place] [id number] Social History Tobacco Use Types Packs/Day Years [...] Bailey MD [address] [place] [id number] (Wo rk) documented as of this encounter Results Alkaline phosphatase (03/03/2016 1:16 PM CDT) Analysis Performed At [facility] Time Signature Alkaline 80 40 - 150 [place] Phosphatase U/L [facility] Specimen Anatomical Collection Method Collection Time Receive d Time (Source) Location / / Volume Laterality Blood specimen 03/03/2016 1:16 PM 016 1:21 (specimen) CDT PM CDT Humberto Good MD LAB - BLOOD ORDERABLES Performing Organization Address City/[facility]/ZIP Code Phon e Number [facility] [address] [place] [address] Calcium (03/03/2016 1:16 PM CDT) P athologist Signature Calcium 8.9 8.5 - 10.1 [facility] mg/dL [facility] Specimen Anatomical Collection Method Collection Time Receive d Time (Source) Location / / Volume Laterality Blood specimen 03/03/2016 1:16 PM 016 1:21 (specimen) CDT PM CDT Humberto Good MD LAB - BLOOD ORDERABLES Performing Organization Address City/[facility]/ZIP Code Phon e Number [facility] [address] [place] [phone] PSA, tumor marker (03/03/2016 1:16 PM CDT) Patholo gist Method Time Signature PSA <0.01 0 - 4 ug/L [place] Assay Method: ??Chemiluminescence using Siemens [facility] Specimen Anatomical Collection Method Collection Time Receive d Time (Source) Location / / Volume Laterality Blood specimen 03/03/2016 1:16 PM 016 1:21 (specimen) CDT PM CDT Humberto Good MD LAB - BLOOD ORDERABLES Performing Organization Address City/[facility]/ZIP Code Phon e Number [facility] [address] [place] [phone] documented in this encounter Visit Diagnoses Diagnosis Prostate cancer (H) - Primary Malignant neoplasm of prostate documented in this encounter Care Teams Bottom Brusher Relationship Specialty Start Date End Date Christian Steiner MD PCP - General Internal Medicine 08/30/12 Christian Steiner MD PCP - Assigned PCP 08/11/1208/16/18 Christian Steiner MD Assigned PCP 08/11/12 02/22/21 documented as of this encounter
--- OUTSIDE RECORDS SUMMARY | 2022-04-27 07:39 | XMS_ITS | Encounter Summary ---
:1935 Author Organization [facility] Address [facility] [place] [address] Care Team Providers Name Role Phone Christian Steiner MD Primary Care Provider Unavailable Christian Steiner MD Unavailable Unavailable Christian Steiner MD Unavailable Unavailable Reason for Visit Reason Comments Surgical Followup 1st PO excision L back mass Encounter Details Date Type Department Care Team Description 03/20/2013 Office Visit [facility] Abdirashid King, Follow- up examination, Surgery Clinic [place] following unspecified [address] diaz rgery (Primary Dx) [address] [place] [phone] [place] [id number] Social History Tobacco Use Types Packs/Day Years Used Date Smoking Tobacco: Former Cigarettes Quit : 02/29/1980 Smokeless Tobacco: Never Alcohol Use Standard Drinks/Week Comments Yes 0 (1 standard drink = 0.6 oz pure alcoho l) occasionally Sex Assigned at Date Recorded Not on file documented as of this encounter Progress Notes Abdirashid King MD - 03/20/2013 1:29 PM CDT Healing well No pain Some swelling and fluid palpable under incisions, nothing pathologic Reviewed physical limitations RTC PRN Please route or send letter to: Primary Care Provider (PCP), Referring Provider, Include Op Note, Include Path and Include Progress Note HPI ROS Physical Exam Abdirashid King MD - 03/20/2013 9:10 AM CDT documented in this encounter Plan of Treatment Upcoming Encounters Date Type Specialty Care Team Description 06/18/2022 Ancillary Procedure Cardiology Abdi Bailey MD [address] [place] [id number] (Wo rk) documented as of this encounter Visit Diagnoses Diagnosis Follow-up examination, following unspeci fied surgery - Primary documented in this encounter Care Teams Supervisor Coating Relationship Specialty Start Date End Date Christian Steiner MD PCP - General Internal Medicine 08/30/12 Christian Steiner MD PCP - Assigned PCP 08/11/1208/16/18 Christian Steiner MD Assigned PCP 08/11/12 02/22/21 documented as of this encounter
--- OUTSIDE RECORDS SUMMARY | 2022-04-27 07:39 | XMS_ITS | Encounter Summary ---
:1935 Author Organization [facility] Address [address] [place] [address] Care Team Providers Name Role Phone Christian Steiner MD Primary Care Provider Unavailable Christian Steiner MD Unavailable Unavailable Christian Steiner MD Unavailable Unavailable Reason for Visit Reason Onset Date Comments Refill Request 02/15/2014 lisinopril 10 mg tab s , atorvastatin 20 mg Encounter Details Date Type Department Care Team Description 02/15/2014 Refill [facility] Christian Steiner, Refill Request [facility] Reagan aguilar MD (lisinopril 10 mg tabs , [address] [facility] [address] atorvastatin 20 mg ) [address] [place] [address] Social History Tobacco Use Types Packs/Day Years Used Date Smoking Tobacco: Former Cigarettes Quit : 02/29/1980 Smokeless Tobacco: Never Alcohol Use Standard Drinks/Week Comments Yes 0 (1 standard drink = 0.6 oz pure alcoho l) occasionally Sex Assigned at Date Recorded Not on file documented as of this encounter Miscellaneous Notes Telephone Encounter - Sulma Horta RN - 02/15/2014 11:08 AM CDT BP not goal Needs K+, creatinine, fasting lipid profile now Due for appointment and labs now, Feb 2014 Telephone Encounter - uGera Jack - 02/15/2014 10:40 AM CDT Last office visit: 09/05/13 Last refill date: 11/20/13 Special instructions from pharmacy: no BP Readings [...] No results found for this basename: D2VIT Guera Jack, documented in this encounter Plan of Treatment Upcoming Encounters Date Type Specialty Care Team Description 06/18/2022 Ancillary Procedure Cardiology Abdi Bailey MD [address] [place] [id number] (Wo rk) documented as of this encounter Visit Diagnoses Diagnosis Elevated blood-pressure reading without diagnosis of hypertension Elevated blood pressure reading without diagnosis of hypertension Diabetes mellitus, type 2 (H) Type II or unspecified type diabetes andrea litus without mention of complication, not stated as uncontrolled Hyperlipidemia LDL goal <100 Other and unspecified hyperlipidemia documented in this encounter Care Teams Route Driver Salesperson Relationship Specialty Start Date End Date Christian Steiner MD PCP - General Internal Medicine 08/30/12 Christian Steiner MD PCP - Assigned PCP 08/11/1208/16/18 Christian Steiner MD Assigned PCP 08/11/12 02/22/21 documented as of this encounter
--- OUTSIDE RECORDS SUMMARY | 2022-04-27 07:40 | XMS_ITS | Encounter Summary ---
:1935 Author Organization [place] Address [facility] [place] [address] Care Team Providers Name Role Phone Wily Whalen MD Primary Care Provider Reason for Visit (Routine) - Closed Specialty Diagnoses / Procedures Referred By Contact Refer red To Contact Radiology Diagnoses CT ABDOMEN/PELVIS WITHOUT AND WITH CONTRAST Procedure Notes: Prostate cancer restaging. Ct Scan Procedures RADIOLOGY [address] [place] [phone] Phone: Referral ID Status Reason Start Date Expiration Date Visits Requ ested Visits Authorized [id number] Closed 04/07/2012 04/07/2013 1 1 Encounter Details Date Type Department Care Team Description 04/11/2012 Hospital Encounter [facility] Riccohenry Ryley Prostate cancer (H) [facility] Imaging MD [facility] [address] XXX RETIRED XXX [place] [address] [phone] [address] [place] [address] Social History Tobacco Use Types Packs/Day Years Used Date Smoking Tobacco: Former Alcohol Use Standard Drinks/Week Comments Yes 0 (1 standard drink = 0.6 oz pure alcoho l) occasionally Sex Assigned at Date Recorded Not on file documented as of this encounter Medications at Time of Discharge Medication Sig Dispensed Refills Start Date End Date aspirin 81 MG tablet Take 1 tablet by 0 mouth daily Co-Enzyme Q-10 10 MG CAPS Take 1 capsule by 0 mouth daily Dose of capsule unknown. Multiple Vitamin (DAILY Take 1 tablet by 0 MULTIVITAMIN PO) mouth daily atorvastatin (LIPITOR) 10 Take 10 mg by mouth 0 12/30/2012 MG tablet daily. glipiZIDE (GLUCOTROL) 5 Take 5 mg by mouth 0 06/25/2014 MG tablet daily. metformin (GLUCOPHAGE) Take 1,000 mg by 0 09/07/2012 1000 MG tablet mouth. documented as of this encounter Miscellaneous Notes Initial Assessments - Abstract, Provider - 05/02/2012 4:10 AM CST CTOR CAREER documented in this encounter Plan of Treatment Upcoming Encounters Date Type Specialty Care Team Description 06/18/2022 Ancillary Procedure Cardiology Abdi Bailey MD [address] [place] [id number] (Wo rk) documented as of this encounter Procedures Procedure Name Priority Date/Time Associated Comments Diagnosis CT ABDOMEN PELVIS W Routine 04/11/2012 1:35 PM Prostate cancer (H) Results for this CONTRAST CDT procedure are i n the results section. ISTAT CREATININE Routine 04/11/2012 1:06 PM Resul ts for this POCT CDT procedure are i n the results section. documented in this encounter Results CT Abdomen pelvis w contrast* (04/11/2012 1:35 PM CDT) Anatomical Region Laterality Modality Abdomen/Pelvis, SUBRAD CT BODY, UMP CT ABDOMEN PELVIS Computed Tomography Specimen (Source) Anatomical Collection Method Collection Time Re ceived Time Location / / Volume Laterality 04/11/2012 1:35 PM CDT Impressions 04/12/2012 7:[address] ABDOMEN AND PELVIS WITH CONTRAST 03/15 1:35 PM TECHNIQUE: Images from diaphragm to pubi c symphysis with oral contrast and 103 mL IV Isovue 370. HISTORY: Prostate cancer restaging. COMPARISON: Previous CTs are not availab le for viewing. Dictation from an abdomen and pelvic CT of 002 is available. FINDINGS: Abdomen and Pelvis: Prominent fatty repl acement in the head and body of the pancreas is identified. This was described on the prior 2001 CT report. The pancreatic tail appears n ormal with mild fatty infiltration. Normal-appearing liver, ga llbladder, spleen, adrenal glands, and kidneys. There is no evidence for periaortic or p elvic adenopathy . Radiation seeds are identified in the prostate. No CT evidence for bone metastasis. Minimal linear scarring or d iscoid atelectasis at the posterior right lung base. The bowel appears normal as seen with CT technique. IMPRESSION: 1. No CT evidence for prostate cancer me tastasis. Radiation seen implants noted in the prostate. 2. There is prominent fatty replacement of the head and body of the pancreas. Fatty infiltration in this are a was described on a CT report of 06/02/2002, but the images are not available for review. Ryley Mckee MD IMG CT ORDERABLES Creatinine POCT (04/11/2012 1:06 PM CDT) P athologist Signature Creatinine 1.0 0.66 - POINT OF CARE 1.25 mg/dL TEST, GLUCOSE GFR Estimate 73 >60 POINT OF CARE mL/min/1.7 TEST, GLUCOSE m2 GFR Estimate If 88 >60 POINT OF CARE Black mL/min/1.7 TEST, GLUCOSE m2 Specimen Anatomical Collection Method Collection Time Receive d Time (Source) Location / / Volume Laterality 04/11/2012 1:06 PM 2 1:10 CDT PM CDT Ryley Mckee MD LAB - BEAKER POCT Performing Organization Address City/State/ZIP Code Phon e Number [facility] POINT OF CARE TEST, GLUCOSE POINT OF CARE TEST, GLUCOSE documented in this encounter Visit Diagnoses Diagnosis Prostate cancer (H) Malignant neoplasm of prostate documented in this encounter Administered Medications Inactive Administered Medications - up to 3 most recent administrations Medication Order MAR Action Action Date Dose Rate Site iopamidol (ISOVUE-370) 76% Given 04/11/2012 2:03 PM CDT 108 mLs solution 100 mL 100 mL, Intravenous, ONCE, On 04/11/12 at 1415, For 1 dose documented in this encounter Care Teams Linoleum Installer Relationship Specialty Start Date End Date Wily Whalen MD PCP - General Internal Medicine 04/16/11 08/29/12 documented as of this encounter
--- OUTSIDE RECORDS SUMMARY | 2022-04-27 07:40 | XMS_ITS | Encounter Summary ---
:1935 Author Organization [place] Address [address] [facility] [place] [address] Care Team Providers Name Role Phone Christian Steiner MD Primary Care Provider Unavailable Christian Steiner MD Unavailable Unavailable Christian Steiner MD Unavailable Unavailable Reason for Visit Auth/Cert - Closed Specialty Diagnoses / Procedures Referred By Contact Refer red To Contact Surgery Diagnoses Mass Rh Periop Services Procedures EXCISE MASS BACK [address] [place], [place] [address] Phone: Fax: Referral ID Status Reason Start Date Expiration Date Visits Requ ested Visits Authorized [id number] Closed 1 1 Encounter Details Date Type Department Care Team Description 03/06/2013 Anesthesia Event [facility] Vladimir Wright MD [facility] Serv[facility] [place] [address] [facility] [place] [address] [facility] [id number] [address] [place], [place] [address] (Wo rk) Anesthesia Record Procedure Summary Procedure Name Responsible Anesthesia Start Anesthesia Stop Time Anesthesiologist Time Excision Left Back Vladimir Wright MD 03/06/13 1327 03/06/13 1 529 Mass, and Right Back Mass (Bilateral: Back) Events Date Time Event Comment 03/06/2013 1327 An Start 1327 Quick Note Pt chart reviewe d, questions answered, consent obtained. Tx to OR 3,pt moved self to OR table, comfortable in p tracey position, pressure points padded, and sedated 1331 An Start Data 1410 MD Present 1415 MD Present 1513 MD Present 1523 an stop data 1529 An Stop Electronically s igned by Yi Pereira on March 06, 2013 3:29 PM Name Total midazolam 1 mg/mL 4 mg fentaNYL 50 mcg/mL 150 mcg propofol 10 mg/mL 413.56 mg ceFAZolin vial 1 gm 2 g lactated ringers infusion 1,300 mL Agents Name O2 Air Exp Sevoflurane Blood No blood administrations on file. Lines, Drains, and Airways Type Details Placement Removal Peripheral IV 04/21/11; 1141; 22 G; 04/21/11 1141 by 07/13/16 0828 by Right; Lower forearm; Abbey Person, Susan Manzom O, Tolerated well RN Peripheral IV 04/11/12; 1051; 20 G, 04/11/12 1051 by 07/13/16 0828 by 1 1/2 inch; Left; Zahra Parkinson Chi cherem O, Median cubital vein RN (antecubital fossa) Peripheral IV 03/06/13; 18 G; Left, 03/06/13 0000 by 03/06/13 1735 by Medial; Hand; Lydia De La O Roberts, Ka thleen E, Metacarpal vein (top RN RN of hand); Chlorhexidine; Injectable; Tolerated well Incision/Surgical Site 03/06/13; 1459; Right, 03/06/13 1459 by 0 03/06/13 1730 by Upper; Back; 03/06/13; Sumaya Hoyos RN Roberts, Kathleen E, 1730 RN Incision/Surgical Site 03/06/13; 1459; Left, 03/06/13 1459 by 1730 by Upper; Back; 03/06/13; Sumaya Hoyos RN Roberts, Kathleen E, 1730 RN documented in this encounter Social History Tobacco Use Types Packs/Day Years Used Date Smoking Tobacco: Former Cigarettes Quit : 02/29/1980 Smokeless Tobacco: Never Alcohol Use Standard Drinks/Week Comments Yes 0 (1 standard drink = 0.6 oz pure alcoho l) occasionally Sex Assigned at Date Recorded Not on file documented as of this encounter OR Notes Anesthesia Postprocedure Evaluation - Vladimir Wright MD - 03/06/2013 3:41 PM CDT Anesthesia Post-Evaluation Note Patient: Humberto Siddiqui Procedure(s) Performed: Procedure(s) with comments: EXCISE MASS BACK - Excision Left Back Mass, and Right Back Mass Patient location: PACU Anesthesia type: MAC Patient Condition Respiratory Function (RR / SpO2 / Airway Patency): Satisfactory Cardiac Function (HR / Rhythm / BP): Satisfactory Mental Status: Satisfactory Temperature: Satisfactory Pain Control: Satisfactory PONV: None or treated Hydration Status: Satisfactory Beta-Latricia Therapy: None indicated, given if indicated Blood pressure 132/71, temperature 98.6 ??F (37 ??C), temperature source Temporal, resp. rate 14, height 1.829 m (6'), weight 97.977 kg (216 lb), SpO2 98.00%. B/P: 132/71, T: 98.6, P: Data Unavailable, R: 14 Vladimir Wright MD Anesthesia Preprocedure Evaluation - Vladimir Wright MD - 03/06/2013 12:38 PM CDT Anesthesia Evaluation . Pt has had prior anesthetic. Type: General ROS/MED HX Pulmonary: - neg pulmonary ROS Neurologic: - neg neurologic ROS Cardiovascular: - neg cardiovascular ROS METS/Exercise Tolerance: Hematologic: - neg hematologic ROS Musculoskeletal: (+) Musculoskeletal Other GI/Hepatic: - neg GI/hepatic ROS Renal: - neg renal ROS Endo: (+) type II DM Psychiatric: - neg psychiatric ROS Infectious Disease: - neg infectious disease ROS Other: - neg other ROS (+) No chance of C-spine cleared: N/A, no H/O Chronic Pain, no other significant disability Physical Exam Normal systems: cardiovascular, pulmonary and dental Airway Mallampati: II TM distance: >3 FB Neck ROM: full Dental Cardiovascular Pulmonary Anesthesia Plan ASA Scores 3 . Plan for MAC - with Intravenous induction.Maintenance will be TIVA. Routine analgesia and antiemetics to be used for post-operative care. Anesthetic plan, risks, benefits and alternatives discussed with: patient or digital sales representative. History & Physical Review History and physical reviewed; no interval change. . documented in this encounter Miscellaneous Notes Addendum Note - Vladimir Wright MD - 03/09/2013 3:47 PM CDT Addendum created 03/09/13 154 by Vladimir Wright MD Modules edited:Anesthesia Attestations Addendum Note - Vladimir Wright MD - 03/09/2013 3:47 PM CDT Addendum created 03/09/13 154 by Vladimir Wright MD Modules edited:Anesthesia Attestations Anesthesia Care Transfer Note - Yi Pereira APRN CRNA - 03/06/2013 3:29 PM CDT Anesthesia Care Transfer Note Patient: Humberto Siddiqui Transferred to: Phase II Patient vital signs: stable Airway: none documented in this encounter Plan of Treatment Upcoming Encounters Date Type Specialty Care Team Description 06/18/2022 Ancillary Procedure Cardiology Abdi Bailey MD [address] [place] [id number] (Wo rk) documented as of this encounter Visit Diagnoses Not on filedocumented in this encounter Administered Medications Inactive Administered Medications - up to 3 most recent administrations Medication Order MAR Action Action Date Dose Rate Site ceFAZolin (ANCEF) 1 g vial to attach Given 03/06/2013 1:31 PM CD T 2 g to IVPB Routine, PRN, Starting on Wed03/06/13 at 1331, Anesthesia Intra-op fentaNYL (SUBLIMAZE) injection Given 03/06/2013 2:43 PM CDT 50 mcg PRN, moderate to severe pain, Starting on 03/06/13 at 1331, Anesthesia Intra-op Given 03/06/2013 1:40 PM CDT 50 mcg Given 03/06/2013 1:31 PM CDT 50 mcg lactated ringers infusion New Bag 03/06/2013 12:44 PM CDT mL at 75-100 mL/hr, Intravenous, CONTINUOUS, UNLESS otherwise indicated., Pre-procedure, Starting on Wed03/06/13 at 1230, Until Wed03/06/13 at 1529 midazolam (VERSED) injection Given 03/06/2013 1:31 PM CDT 2 mg PRN, anxiety, Starting on Wed03/06/13 at 1327, Anesthesia Intra-op Given 03/06/2013 1:27 PM CDT 2 mg propofol (DIPRIVAN) Rate/Dose 03/06/2013 2:57 20 mcg/kg/min 11.8 mL/ hr injection Change PM CDT CONTINUOUS PRN, Starting on Wed03/06/13 at 1331, Anesthesia Intra-op Rate/Dose Change 03/06/2013 2:13 PM CDT 40 mcg/kg/min 23.5 mL/hr New Bag 03/06/2013 1:31 PM CDT 50 mcg/kg/min 29.4 mL/hr documented in this encounter Care Teams Assistant Secretary Relationship Specialty Start Date End Date Christian Steiner MD PCP - General Internal Medicine 08/30/12 Christian Steiner MD PCP - Assigned PCP 08/11/1208/16/18 Christian Steiner MD Assigned PCP 08/11/12 02/22/21 documented as of this encounter
--- OUTSIDE RECORDS SUMMARY | 2022-04-27 07:40 | XMS_ITS | Encounter Summary ---
:1935 Author Organization [facility] Address [address] [place] [id number] Care Team Providers Name Role Phone Christian Steiner MD Primary Care Provider Unavailable Christian Steiner MD Unavailable Unavailable Christian Steiner MD Unavailable Unavailable Reason for Visit Reason Comments Pre-Op Exam Encounter Details Date Type Department Care Team Description 02/28/2013 Office Visit [facility] Christian Steiner Preop gen eral physical exam (Primary Dx); Clinic Smiley Arellano MD Diabetes mellitus, type 2 (H); [facility] Hyperlipidemia LDL goal <100 ; [address] [facility] Elevated blood-pressure reading without diagnosis of hypertension [address] [address] Social History Tobacco Use Types Packs/Day Years Used Date Smoking Tobacco: Former Cigarettes Quit : 02/29/1980 Smokeless Tobacco: Never Alcohol Use Standard Drinks/Week Comments Yes 0 (1 standard drink = 0.6 oz pure alcoho l) occasionally Sex Assigned at Date Recorded Not on file documented as of this encounter Last Filed Vital Signs Vital Sign Reading Time Taken Comments Blood Pressure 152/80 02/28/2013 8:13 AM CDT Pulse 82 02/28/2013 8:13 AM CDT Temperature 36.5 ??C (97.7 ??F) 02/28/2013 8:13 AM CDT Respiratory Rate 18 02/28/2013 8:13 AM CDT Oxygen Saturation - - Inhaled Oxygen Concentration - - Weight 98.2 kg (216 lb 6.4 oz) 02/28/2013 8:13 AM CDT Height 184.2 cm (6' 0.5) 02/28/2013 8:13 AM CDT Body Mass Index 28.95 02/28/2013 8:13 AM CDT documented in this encounter Patient Instructions Patient InstructionsChristian Steiner MD - 02/28/2013 8:45 AM CDT STOP TAKING YOUR METFORMIN 48 HOURS BEFORE SURGERY. I HAVE INCREASED YOUR LIPITOR (ATORVASTATIN ) TO 20 MG PER DAY. WE NEED TO GET THE LDL UNDER 100. PLEASE RECHECK YOUR LABS AGAIN IN 6 MONTHS. I HAVELEFT AN ORDER AT THE LAB. PLEASE SEE ME FOR A FOLLOW-UP APPOINTMENT IN 6 MONTHS, ONE WEEK AFTER YOURLABS ARE DRAWN. IF YOU PREFER, YOU COULD SEE ME FOR AN APPOINTMENT AND THEN HAVE YOUR BLOOD DRAWN ONTHE SAME VISIT. I ALSO RECOMMEND THAT YOU TAKE A MEDICATION CALLED LISINOPRIL, STARTING AT 10 MG PERDAY. THIS IS TO LOWER BLOOD PRESSURE, AND TO PROTECT YOUR KIDNEYS. ABOUT 1 IN 15 PEOPLE DEVELOP A DRY COUGH WHEN THEY TAKE THIS MEDICINE. IF THAT HAPPENS, PLEASE LET ME KNOW. ALSO, PLEASE CHECK YOUR BLO OD PRESSURE WEEKLY. SET ASIDE 10 MINUTES, AND GET 3 READINGS, 5 MINUTES APART. STOP THE ASPIRIN OF TODAY, AND RESUME WHEN YOU GET HOME. documented in this encounter Progress Notes Christian Steiner MD - 02/28/2013 8:15 AM CDT [address] [address] Dept: [phone] PRE-OP EVALUATION: Today's date: 02/28/2013 Humberto Siddiqui (: 1935) presents for pre-operative evaluation assessment as requested by . He requires evaluation and anesthesia risk assessment prior to undergoing surgery/procedure for treatment of cyst . Proposed procedure: cyst on back Date of Surgery/ Procedure: 03/06/13 Time of Surgery/ Procedure: 12:30 Hospital/Surgical Facility: [facility] Fax number for surgical facility: Primary Physician: Christian Steiner Type of Anesthesia Anticipated: Local Patient has a Health Care Directive or Living Will: NO HPI: 1. NO - Do you have a history of heart attack, stroke, stent, bypass or surgery on an artery in the head, neck, heart or legs? 2. NO - Do you ever have any pain or discomfort in your chest? 3. NO - Have you ever had a severe pain across the front of your chest lasting for half an hour or more? 4. NO - Do you have a history of Congestive Heart Failure? 5. NO - Are you troubled by shortness of breath when: walking on the level/ up a slight hill/ at night? 6. NO - Does your chest ever sound wheezy or whistling? 7. NO - Do you currently have a cold, bronchitis or other respiratory infection? 8. NO - Have you had a cold, bronchitis or other respiratory infection within the last 2 weeks? 9. NO - Do you usually have a cough? 10. NO - Do you sometimes get pains in the calves of your legs when you walk? 11. NO - Do you or anyone in your family have previous history of blood clots? 12. NO - Do you or does anyone in your family have a serious bleeding problem such as prolonged bleeding following surgeries or cuts? 13. NO - Have you ever had problems with anemia or been told to take iron pills? 14. NO - Have you had any abnormal blood loss such as black, tarry or bloody stools, or abnormal vaginal bleeding? 15. NO - Have you ever had a blood transfusion? 16. NO - Have you or any of your relatives ever had problems with anesthesia? 17. NO - Do you have sleep apnea, excessive snoring or daytime drowsiness? 18. NO - Do you have any prosthetic heart valves? 19. NO - Do you have prosthetic joints? Margarita Haynes CMA See problem list for active medical problems. Problems all longstanding and stable, except as noted/documented. See ROS for pertinent symptoms related to these conditions. . MEDICAL HISTORY: Patient Active Problem List Diagnosis Date Noted ? ? Hyperlipidemia LDL goal <100 09/07/2012 Priority: High ??? Malignant neoplasm of prostate Priority: High Prostate cancer; radioactive seeds ; Dr. Mckee;PSA 8.6 in 04/25; casodex in 2012 ??? Diabetes mellitus, type 2 04/21/2011 Priority: High Class: Chronic DX approx 2002 per pt ??? Elevated blood-pressure reading without diagnosis of hypertension 02/28/2013 Priority: Medium Add lisinopril 02/24 ??? Preventive measure 09/07/2012 Priority: Low Colonoscopy 04/24; a 10 mm polyp;tubular adenoma Past Medical History Diagnosis Date ??? Diabetes mellitus Type II dx approx. 2003 ? High cholesterol ??? Malignant neoplasm of prostate 2002 Prostate cancer; radioactive seeds ; Dr. Mckee; casodex in 2012 History reviewed. No pertinent past surgical history. Current Outpatient Prescriptions Medication Sig ??? cinnamon 500 MG CAPS Take 1 capsule by mouth daily ??? Calcium Carbonate-Vitamin D (CALCIUM 600 + D OR) Take 1 tablet by mouth daily ??? atorvastatin (LIPITOR) 10 MG tablet Take 1 tablet by mouth daily. ??? metFORMIN (GLUCOPHAGE) 1000 MG tablet TAKE 1 TABLET BY MOUTH TWICE DAILY ??? Cholecalciferol (VITAMIN D) 1000 UNITS capsule [...] 10 MG CAPS Take by mouth daily. OTC products: None, except as noted above No Known Allergies Latex Allergy: NO History Substance Use Topics ??? Smoking status: Former Smoker Quit date: 02/29/1980 ??? Smokeless tobacco: Never Used ??? Alcohol Use: Yes occasionally History Drug Use No REVIEW OF SYSTEMS: C: NEGATIVE for fever, chills, change in weight E/M: NEGATIVE for ear, mouth and throat problems R: NEGATIVE for significant cough or SOB CV: NEGATIVE for chest pain, palpitations or peripheral edema GI: NEGATIVE for nausea, abdominal pain, heartburn, or change in bowel habits NEURO: NEGATIVE for weakness, dizziness or paresthesias EXAM: BP 152/80 Pulse 82 Temp 97.7 ??F (36.5 ??C) (Tympanic) Resp 18 Ht 6' 0.5 (1.842 m) Wt 216lb 6.4 oz (98.158 kg) BMI 28.95 kg/m2 GENERAL APPEARANCE: healthy, alert and no distress HENT: ear canals and TM's normal and nose and mouth without ulcers or lesions RESP: lungs clear to auscultation - no rales, rhonchi or wheezes CHEST/BACK: large mass left upper back CV: regular rate and rhythm, normal S1 S2, no S3 or S4 and no murmur, click or rub ABDOMEN: soft, nontender, no HSM or masses and bowel sounds normal NEURO: Normal strength and tone, sensory exam grossly normal, mentation intact and speech normal DIAGNOSTICS: EKG: Normal Sinus Rhythm, Right Bundle Branch Block, there are no prior tracings available Recent Results (from the past 672 hour(s)) COMPREHENSIVE METABOLIC PANEL Collection Time 02/07/13 8:36 AM Component Value Range Sodium 138 133 - 144 mmol/L Potassium 4.2 3.4 - 5.3 mmol/L Chloride 100 94 - 109 mmol/L Carbon Dioxide 27 20 - 32 mmol/L Anion Gap 10.9 6 - 17 mmol/L Glucose 165 (*) 60 - 99 mg/dL Urea Nitrogen 25 7 - 30 mg/dL Creatinine 1.30 (*) 0.66 - 1.25 mg/dL GFR Estimate 54 (*) >60 mL/min/1.7m2 GFR Estimate If Black 65 >60 mL/min/1.7m2 Calcium 8.4 (*) 8.5 - 10.4 mg/dL Bilirubin Total 0.6 0.2 - 1.3 mg/dL Albumin 4.0 3.3 - 4.9 g/dL Protein Total 7.1 6.8 - 8.8 g/dL Alkaline Phosphatase 92 40 - 150 U/L ALT 45 0 - 70 U/L AST 29 0 - 45 U/L LIPID PROFILE Collection Time 02/07/13 8:36 AM Component Value Range Cholesterol 164 0 - 200 mg/dL Triglycerides 68 0 - 150 mg/dL HDL Cholesterol 41 40 - 110 mg/dL LDL Cholesterol Calculated 109 0 - 129 mg/dL VLDL-Cholesterol 14 0 - 30 mg/dL Cholesterol/HDL Ratio 4.0 0.0 - 5.0 HEMOGLOBIN A1C Collection Time 02/07/13 8:36 AM Component Value Range Hemoglobin A1C 6.7 (*) 4.3 - 6.0 % VITAMIN B12 Collection Time 02/07/13 8:36 AM Component Value Range Vitamin B12 802 >210 pg/mL MICROALBUMIN QUANTITATIVE RANDOM URINE Collection Time 02/07/13 8:38 AM Component Value Range Creatinine Urine 134 Microalbumin Urine Value: <5 Urine Microalbumin lowest reportable value has been changed from 2 mg/L to 5 mg/L due to a methodology change on September. Microalbumin mg/g Cr Unable to calculate 0 - 17 mg/g Cr IMPRESSION: Reason for surgery/procedure: need for excision of mass left upper back Diagnosis/reason for consult: need for pre-op evaluation. The proposed surgical procedure is considered INTERMEDIATE risk. REVISED CARDIAC RISK INDEX The patient has the following serious cardiovascular risks for perioperative complications such as (ND, PE, VFib and 3?? AV Block): No serious cardiac risks The patient has the following additional risks for perioperative complications: RBBB, duration unknown. No sx of CAD, but is at risk. 1. Preop general physical exam (V72.83) EKG 12-lead complete w/read - Clinics 2. Diabetes mellitus, type 2 (250.00) lisinopril (PRINIVIL,ZESTRIL) 10 MG tablet 3. Hyperlipidemia LDL goal <100 (272.4) atorvastatin (LIPITOR) 20 MG tablet 4. Elevated blood-pressure reading without diagnosis of hypertension (796.2) lisinopril (PRINIVIL,ZESTRIL) 10 MG tablet RECOMMENDATIONS: --Approval given to proceed with proposed procedure, without further diagnostic evaluation pending labs. Patient Instructions STOP TAKING YOUR METFORMIN 48 HOURS BEFORE SURGERY. I HAVE INCREASED YOUR LIPITOR (ATORVASTATIN ) TO 20 MG PER DAY. WE NEED TO GET THE LDL UNDER 100. PLEASE RECHECK YOUR LABS AGAIN IN 6 MONTHS. I HAVELEFT AN ORDER AT THE LAB. PLEASE SEE ME FOR A FOLLOW-UP APPOINTMENT IN 6 MONTHS, ONE WEEK AFTER YOURLABS ARE DRAWN. IF YOU PREFER, YOU COULD SEE ME FOR AN APPOINTMENT AND THEN HAVE YOUR BLOOD DRAWN ONTHE SAME VISIT. I ALSO RECOMMEND THAT YOU TAKE A MEDICATION CALLED LISINOPRIL, STARTING AT 10 MG PERDAY. THIS IS TO LOWER BLOOD PRESSURE, AND TO PROTECT YOUR KIDNEYS. ABOUT 1 IN 15 PEOPLE DEVELOP A DRY COUGH WHEN THEY TAKE THIS MEDICINE. IF THAT HAPPENS, PLEASE LET ME KNOW. ALSO, PLEASE CHECK YOUR BLO OD PRESSURE WEEKLY. SET ASIDE 10 MINUTES, AND GET 3 READINGS, 5 MINUTES APART. STOP THE ASPIRIN OF TODAY, AND RESUME WHEN YOU GET HOME. Signed Electronically by: Christian Steiner MD Copy of this evaluation report is provided to requesting physician. [facility] Preop Guidelines 2012 documented in this encounter Nursing Notes 02/28/2013 8:15 AM CDT >> MARGARITA HAYNES e Feb 28, 2013 8:18 AM Patient presents with: Pre-Op Exam Initial BP 152/80 Pulse 82 Temp 97.7 ??F (36.5 ??C) (Tympanic) Resp 18 Ht 6' 0.5 (1.842 m) Wt 216 lb 6.4 oz (98.158 kg) BMI 28.95 kg/m2 Estimated Body mass index is 28.95 kg/(m^2) as calculated from the following: Height as of this encounter: 6' .5(1.842 m). Weight as of this encounter: 216 lb 6.4 oz(98.158 kg). BP completed using cuff size: regular Margarita Haynes [employer] documented in this encounter Plan of Treatment Upcoming Encounters Date Type Specialty Care Team Description 06/18/2022 Ancillary Procedure Cardiology Abdi Bailey MD [address] [place] [address] (Wo rk) documented as of this encounter Procedures Procedure Name Priority Date/Time Associated Diagnosis Comme nts EKG 12-LEAD Routine 02/28/2013 9:04 AM Preop general Results for this COMPLETE W/READ - CDT physical exam procedure are in CLINICS the results section. documented in this encounter Results EKG 12-lead complete w/read - Clinics (02/28/2013 9:04 AM CDT) Narrative This result has an attachment that is no t available. Christian Steiner MD ECG ORDERABLES documented in this encounter Visit Diagnoses Diagnosis Preop general physical exam - Primary Other specified pre-operative examinatio n Diabetes mellitus, type 2 (H) Type II or unspecified type diabetes andrea litus without mention of complication, not stated as uncontrolled Hyperlipidemia LDL goal <100 Other and unspecified hyperlipidemia Elevated blood-pressure reading without diagnosis of hypertension Elevated blood pressure reading without diagnosis of hypertension documented in this encounter Care Teams Quality Review Specialist Relationship Specialty Start Date End Date Christian Steiner MD PCP - General Internal Medicine 08/30/12 Christian Steiner MD PCP - Assigned PCP 08/11/1208/16/18 Christian Steiner MD Assigned PCP 08/11/12 02/22/21 documented as of this encounter
--- OUTSIDE RECORDS SUMMARY | 2022-04-27 07:40 | XMS_ITS | Encounter Summary ---
:1935 Author Organization [facility] Address [facility] [place] [address] Care Team Providers Name Role Phone Wily Whalen MD Primary Care Provider Encounter Details Date Type Department Care Team Description 04/06/2012 Orders Only [facility] Jessenia Thomas Prostate cancer (H) [facility] (Primary Dx) [address] [place] [phone] Social History Tobacco Use Types Packs/Day Years [...] Bailey MD [address] [place] [id number] (Wo rk) documented as of this encounter Visit Diagnoses Diagnosis Prostate cancer (H) - Primary Malignant neoplasm of prostate documented in this encounter Care Teams Assistant Corporate Controller Relationship Specialty Start Date End Date Wily Whalen MD PCP - General Internal Medicine 04/16/11 08/29/12 documented as of this encounter
--- OUTSIDE RECORDS SUMMARY | 2022-04-27 07:40 | XMS_ITS | Encounter Summary ---
:1935 Author Organization [place] Address [address] [place] [address]. [place] [address] Care Team Providers Name Role Phone Christian Steiner MD Primary Care Provider Unavailable Christian Steiner MD Unavailable Unavailable Christian Steiner MD Unavailable Unavailable Reason for Referral Referral not Required - Closed Specialty Diagnoses / Procedures Referred By Contact Refer red To Contact Diagnoses Mass of chest wall Christian Steiner MD [facility] [address] [facility] [address] [address] [facility] [address] [place] [address] Phone: Fax: Referral ID Status Reason Start Date Expiration Date Visits Requ ested Visits Authorized [id number] Closed 12/07/2012 06/05/2013 1 1 Reason for Visit Reason Comments Mass on back, x 1 week Encounter Details Date Type Department Care Team Description 12/07/2012 Office Visit [facility] Christian Steiner Mass o f chest wall Clinic Smiley Franco MD (Yadira carballo Dx) [employer] [address] [place] [address] [address] [place] [address] Social History Tobacco Use Types Packs/Day Years Used Date Smoking Tobacco: Former Smokeless Tobacco: Never Alcohol Use Standard Drinks/Week Comments Yes 0 (1 standard drink = 0.6 oz pure alcoho l) occasionally Sex Assigned at Date Recorded Not on file documented as of this encounter Last Filed Vital Signs Vital Sign Reading Time Taken Comments Blood Pressure 132/80 12/07/2012 3:26 PM CDT Pulse 72 12/07/2012 3:26 PM CDT Temperature - - Respiratory Rate 20 12/07/2012 3:26 PM CDT Oxygen Saturation - - Inhaled Oxygen Concentration - - Weight 98.9 kg (218 lb) 12/07/2012 3:26 PM CDT Height 183 cm (6' 0.05) 12/07/2012 3:26 PM CDT Body Mass Index 29.53 12/07/2012 3:26 PM CDT documented in this encounter Progress Notes Christian Steiner MD - 12/07/2012 3:26 PM CDT SUBJECTIVE: Humberto Siddiqui is a 77 year old male who presents to clinic today for the following health issues: Mass on Back ?? Duration: 1 week ?? Description (location/character/radiation): Lt shoulder blade-upper back ?? Intensity: mild ?? Accompanying signs and symptoms: na ?? History (similar episodes/previous evaluation): None ?? Precipitating or alleviating factors: None ?? Therapies tried and outcome: None SUBJECTIVE: Chief Complaint Patient presents with ??? Mass on back, x 1 week Just noticed recently by his . No pain OBJECTIVE: BP 132/80 Pulse 72 Resp 20 Ht 6' 0.05 (1.83 m) Wt 218 lb (98.884 kg) BMI 29.53 kg/m2 tennis ball size rubbery lump at inferior aspect of L scapula ASSESSMENT/PLAN: Per encounter diagnoses and orders. Does not feel like a lipoma or an epidermoid cyst. Plan surg consult documented in this encounter Nursing Notes 12/07/2012 3:15 PM CDT >> MARGARITA HAYNES WedDec 07, 2012 3:32 PM Patient presents with: Mass - on back, x 1 week Initial BP 132/80 Pulse 72 Resp 20 Ht 6' 0.05 (1.83 m) Wt 218 lb (98.884 kg) BMI 29.53 kg/m2 Estimated Body mass index is 29.53 kg/(m^2) as calculated from the following: Height as of this encounter: 6' .05(1.83 m). Weight as of this encounter: 218 lb(98.884 kg). BP completed using cuff size: large Margarita Haynes COMMUNITY MENTAL HEALTH WORKER documented in this encounter Plan of Treatment Upcoming Encounters Date Type Specialty Care Team Description 06/18/2022 Ancillary Procedure Cardiology Abdi Bailey MD [address] [place] [address] (Wo rk) Scheduled Referrals Name Type Priority Associated Diagnoses Order S chedule GENERAL SURG ADULT Referral Routine Mass of chest wall Ord ered: 12/07/2012 REFERRAL documented as of this encounter Visit Diagnoses Diagnosis Mass of chest wall - Primary Swelling, mass, or lump in chest documented in this encounter Care Teams Pipe Liner Relationship Specialty Start Date End Date Christian Steiner MD PCP - General Internal Medicine 08/30/12 Christian Steiner MD PCP - Assigned PCP 08/11/1208/16/18 Christian Steiner MD Assigned PCP 08/11/12 02/22/21 documented as of this encounter
--- OUTSIDE RECORDS SUMMARY | 2022-04-27 07:40 | XMS_ITS | Encounter Summary ---
:1935 Author Organization [place] Address [facility] [place] [address] Care Team Providers Name Role Phone Christian Steiner MD Primary Care Provider Unavailable Christian Steiner MD Unavailable Unavailable Christian Steiner MD Unavailable Unavailable Reason for Visit Auth/Cert - Closed Specialty Diagnoses / Procedures Referred By Contact Refer red To Contact Surgery Diagnoses Mass Rh Periop Services Procedures EXCISE MASS BACK [address] [place], [place] [address] Phone: Fax: Referral ID Status Reason Start Date Expiration Date Visits Requ ested Visits Authorized [id number] Closed 1 1 Encounter Details Date Type Department Care Team Description 03/06/2013 Hospital Encounter [facility] Abdirashid Mabry P ostoperative pain [place] PreOP/PostOP (Primary Dx) [address] [facility] [address] [address] [place] [address] [phone] Social History Tobacco Use Types Packs/Day Years Used Date Smoking Tobacco: Former Cigarettes Quit : 02/29/1980 Smokeless Tobacco: Never Alcohol Use Standard Drinks/Week Comments Yes 0 (1 standard drink = 0.6 oz pure alcoho l) occasionally Sex Assigned at Date Recorded Not on file documented as of this encounter Last Filed Vital Signs Vital Sign Reading Time Taken Comments Blood Pressure 145/83 03/06/2013 5:18 PM CDT Pulse - - Temperature 35.8 ??C (96.4 ??F) 03/06/2013 5:18 PM CDT Respiratory Rate 16 03/06/2013 5:18 PM CDT Oxygen Saturation 99% 03/06/2013 5:18 PM CDT Inhaled Oxygen Concentration - - Weight 98 kg (216 lb) 03/06/2013 12:15 PM CDT Height 182.9 cm (6') 03/06/2013 12:15 PM CDT Body Mass Index 29.29 03/06/2013 12:15 PM CDT documented in this encounter Discharge Instructions Discharge InstructionsPaNancy lyle RN - 03/06/2013 3:41 PM CDT HOME CARE FOLLOWING MINOR SURGERY DRESSING Keep dressing dry and in place until your doctor instructs you to remove the dressing. DRAINAGE There should be minimal drainage. If bleeding should occur and soaks through the dressing apply a sterile, dry dressing over it and tape in place. If bleeding persists, apply gentle, steady pressure with your hand over the dressing for 5 minutes. If the bleeding does not stop, call your doctor. SKIN CLOSURE You may have stitches or special skin closures. You will be given an appointment for the removal of any external stitches. You may have stitches under the skin which will absorb. You may have steri-strips over the incision. These look like thin tapes and will peel off in 5-7 days. If they don???t after 7 days, you may carefully remove them. You may shower with the steri-strips but do not soak them, as with swimming or taking a bath. A protective covering of plastic may be placed over external stitches for showering. NOTIFY YOUR PHYSICIAN IF YOU HAVE ANY OF THE FOLLOWING SYMPTOMS: 1. Fever 2. Excessive bleeding or drainage 3. Disruption of the skin closure 4. Swelling, redness or excessive tenderness at the site 5. Severe pain 6. Drainage that is green, yellow, thick white or has a bad odor Per Dr. Mabry: Ok to shower tomorrow morning Avoid strenuous activities for 2 weeks Return to clinic for follow up in 10-14 days Phone: documented in this encounter Medications at Time [...] vitamin C (STRESS TAB) mouth daily. tablet bicalutamide (CASODEX) 50 Take 50 mg by 0 12/17/2016 MG tablet mouth daily. Calcium Carbonate-Vitamin Take 1 tablet by 0 04/10/2020 D (CALCIUM 600 + D OR) mouth 2 times daily (with meals) atorvastatin (LIPITOR) 20 Take 1 tablet (20 90 tablet 3 02/15/2014 MG tabletIndications: mg) by mouth daily Hyperlipidemia LDL goal <100 glipiZIDE (GLUCOTROL) 5 MG Take 5 mg by mouth 0 06/25/2014 tablet daily. HYDROcodone-acetaminophen Take 1 tablet by 31 tablet 0 02/1303/20/2013 (NORCO) 5-325 MG per mouth every 6 tabletIndications: hours as needed Postoperative pain for pain lisinopril Take 1 tablet (10 90 tablet 3 02/28/2013 014 (PRINIVIL,ZESTRIL) 10 MG mg) by mouth daily tabletIndications: Elevated blood-pressure reading without diagnosis of hypertension, Diabetes mellitus, type 2 (H) metFORMIN (GLUCOPHAGE) TAKE 1 TABLET BY 180 tablet 0 013 03/31/2013 1000 MG tabletIndications: MOUTH TWICE DAILY Diabetes mellitus, type 2 (H) documented as of this encounter H&P Notes Zara Pearce - 03/03/2013 9:36 AM CDT This note is for the purpose of making the H&P performed in clinic within the last 30 days available in the hospital surgical encounter. Source Note - Christian Steiner MD - 02/28/2013 8:15 AM CDT [address] [address] Dept: [phone] PRE-OP EVALUATION: Today's date: 02/28/2013 Janeth Siddiqui (: 1935) presents for pre-operative evaluation assessment as requested by . He requires evaluation and anesthesia risk assessment prior to undergoing surgery/procedure for treatment of cyst . Proposed procedure: cyst on back Date of Surgery/ Procedure: 03/06/13 Time of Surgery/ Procedure: 12:30 Hospital/Surgical Facility: [facility] Fax number for surgical facility: Primary Physician: [...] - Do you have prosthetic joints? Margarita Garces CMA See problem list for active medical [...] cardiovascular risks for perioperative complications such as ([place], PE, VFib and 3?? AV Block): No [...] evaluation report is provided to requesting physician. [place] Preop Guidelines 2013 Abdirashid Mabry MD - 03/02/2013 6:01 PM CDT documented in this encounter Nursing Notes Lydia De La O RN - 03/06/2013 5:30 PM CDT Emesis x 1 with some relief of nausea. IV fluids finished and Zofran given. Glucose checks and results reviewed with Dr. Gabriel MD. No further orders at this time. VSS. and pt. State understand instructions and ready for discharge.- Lydia De La O RN documented in this encounter Miscellaneous Notes Op Note - Abdirashid Mabry MD - 03/07/2013 1:24 PM CDT PREOPERATIVE DIAGNOSIS: Bilateral upper back masses. POSTOPERATIVE DIAGNOSIS: Bilateral upper back masses. PROCEDURE: Bilateral upper back masses removed (10x5 cm and 9x8 cm). ANESTHESIA: MAC plus local. OPERATIVE PROCEDURE: After intravenous sedation was provided, Mr. Janeth Siddiqui was placed prone on the operating table. His back was prepped and draped in the usual sterile fashion. A generous amount ofshort and long-acting local anesthetic was utilized through the course of the operation. Incisions were made horizontally right on top of the palpable masses. On both sides, it happened that the mass was underneath the latissimus dorsi muscle. The muscle was split and not cut. The masses were removed with electrocautery and blunt dissection. Hemostasis was secured with electrocautery, suture ligationand Fibrillar material. Both specimens were sent independently for pathologic examination. Wounds were inspected and no evidence of bleeding noted. The muscle was reapproximated with 3-0 Vicryl suture.Skin was reapproximated with 3-0 Vicryl, 4-0 Vicryl and Dermabond material. Sponge and needle count reported correct. No immediate complications. ABDIRASHID MABRY MD MT: [id number] Name: JANETH SIDDIQUI Account: [id number] : 1935 Procedure Date: 03/06/2013 Document: [id number] Brief Op Note - Abdirashid Mabry MD - 03/06/2013 3:21 PM CDT Brief Operative Note Pre-operative diagnosis: Bilateral back masses Post-operative diagnosis: Same Procedure: Excision of bilateral back masses Surgeon: Abdirashid Mabry MD Anesthesia: Local anesthesia with sedation Estimated blood loss: Less than 50 ml Specimens: Bilateral back masses documented in this encounter Plan of Treatment Upcoming Encounters Date Type Specialty Care Team Description 06/18/2022 Ancillary Procedure Cardiology Abdi Bailey MD [address] [place] [address] (Wo rk) documented as of this encounter Procedures Procedure Name Priority Date/Time Associated Diagnosis Comme nts GLUCOSE BY METER Routine 03/06/2013 5:22 PM Resul ts for this CDT procedure are i n the results section. GLUCOSE BY METER Routine 03/06/2013 3:41 PM Resul ts for this CDT procedure are i n the results section. SURGICAL PATHOLOGY Routine 03/06/2013 2:51 PM Res ults for this EXAM CDT procedure are i n the results section. GLUCOSE BY METER Routine 03/06/2013 2:30 PM Resul ts for this CDT procedure are i n the results section. EXCISION, MASS, 03/06/2013 1:21 PM Mass BACK CDT Special Needs 6'0.5 / 216# 6.4oz per H&P documented in this encounter Results (ABNORMAL) Glucose by meter (03/06/2013 5:22 PM CDT) P athologist Signature Glucose 194 (H) 60 - 99 POINT OF CARE mg/dL TEST, GLUCOSE Comment: Dr/RN Notified Specimen Anatomical Collection Method Collection Time Receive d Time (Source) Location / / Volume Laterality 03/06/2013 5:22 PM 3 5:25 CDT PM CDT Abdirashid BARON - QUETA POCT Performing Organization Address City/[facility]/ZIP Code Phon e Number FV POINT OF CARE TEST, GLUCOSE POINT OF CARE TEST, GLUCOSE (ABNORMAL) Glucose by meter (03/06/2013 3:41 PM CDT) P athologist Signature Glucose 157 (H) 60 - 99 POINT OF CARE mg/dL TEST, GLUCOSE Specimen Anatomical Collection Method Collection Time Receive d Time (Source) Location / / Volume Laterality 03/06/2013 3:41 PM 3 3:45 CDT PM CDT Abdirashid BARON - BEKATI POCT Performing Organization Address City/[facility] Phon e Number FV POINT OF CARE TEST, GLUCOSE POINT OF CARE TEST, GLUCOSE Surgical pathology exam (03/06/2013 2:51 PM CDT) Component Value Ref Test Analysis Performed At [facility] gist Range Method Time Signature Copath Patient Name: JANETH SIDDIQUI Janessa JANES Report MR#: [id number] Specimen #: [id number] Collected: 03/06/2013 Received: 03/06/2013 Reported: 03/07/2013 18:22 Ordering Phy(s): ABDIRASHID MABRY SPECIMEN(S): A: Left back mass B: Right back mass FINAL DIAGNOSIS: A. and B. ??Soft tissue, left back and right back, excision biopsies - ?1. ??Elastofibromas (see description). ?2. ??Negative for malignancy. Electronically signed out by: Africa Jeffries M.D. CLINICAL HISTORY: Mass. GROSS: A. ??The specimen, received in formalin labeled left back m ass, consists of 84.6 gm, 9.5 x 7.5 x 3 cm fibrofatty soft tissue portion without overlying skin. ??The unoriented specimen is inked b lack in its entirety. ??Serial sections reveal a fibrofatty firm lobular cut surface. Representatively submitted in six cassettes. B. ??The specimen, received in formalin labeled right back mass, consists of 32.3 gm, 10 x 4.5 x 2 cm fibrofatty soft tissue portion with irregular yellow-pink overlying surface. ??The unoriented sp ecimen is entirely inked in black. ??Serial sections reveal a fibrofat ty firm lobular cut surface. ??Representatively submitted in four ca ssettes. SA/sg MICROSCOPIC: A. and B. ??The sections demonstrate altered elastic fibers in a collagenous matrix associated with fibroblastic and adipose tissue. 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 ??The differential diagnosis would include elastofibrolipoma. ??There is no evidence of malignancy. Selected slides are internally reviewed (MGP). SA/sg 03-07-13 TESTING LAB LOCATION: [address] ??[id number] COLLECTION SITE: Client: [facility] Location: RHOR (R) Specimen Anatomical Collection Method Collection Time Receive d Time (Source) Location / / Volume Laterality 03/06/2013 2:51 PM 3 2:55 CDT PM CDT Abdirashid Mabry MD LAB - QUETA Performing Organization Address City/State/ZIP Code Phon e Number COPATH (ABNORMAL) Glucose by meter (03/06/2013 2:30 PM CDT) P athologist Signature Glucose 184 (H) 60 - 99 POINT OF CARE mg/dL TEST, GLUCOSE Specimen Anatomical Collection Method Collection Time Receive d Time (Source) Location / / Volume Laterality 03/06/2013 2:30 PM 3 2:35 CDT PM CDT Abdirashid Mabry MD LAB - BEAKER POCT Performing Organization Address City/State/ZIP Code Phon e Number FV POINT OF CARE TEST, GLUCOSE POINT OF CARE TEST, GLUCOSE documented in this encounter Visit Diagnoses Diagnosis Postoperative pain - Primary Other acute postoperative pain documented in this encounter Administered Medications Inactive Administered Medications - up to 3 most recent administrations Medication Order MAR Action Action Date Dose Rate Site fentaNYL (SUBLIMAZE) injection Given 03/06/2013 4:00 PM CDT 50 m cg 25-50 mcg 25-50 mcg, Intravenous, EVERY 15 MIN PRN, other, acute pain while in Phase II, Starting on Wed03/06/13 at 1544, MAX cumulative dose = 250 mcg. Use Fentanyl initially, as a short acting agent for acute pain control. If insufficient, or a longer acting agent is needed, begin Morphine or Hydromorphone if ordered., Phase ll Given 03/06/2013 3:48 PM CDT 50 mcg ondansetron (ZOFRAN) injection 4 mg Given 03/06/2013 4:37 PM CDT 4 mg 4 mg, Intravenous, EVERY 30 MIN PRN, nausea, vomiting, Administer over 2-5 Minutes, Starting on Wed03/06/13 at 1544, For 2 doses, MAX total dose = 8 mg, including OR dosing. This is step 1 of the nausea and vomiting protocol. If not resolved in 15 minutes, then go to step 2 (Prochlorperazine if ordered)., PACU/Phase II documented in this encounter Active and Recently Administered Medications Times are shown in CDT. Continuous Medication Order 03/04/2013 03/05/2013 03/06/2013 lactated ringers infusion (CANCELED) 1230 (Canceled Entry - Provider: Nancy Muniz RN)1244 (New Bag - Provider: Morenita Sigala APRN AUTOMOTIVE PAINTER HELPER)1400 (Anesthesia Volume Adjustment - Provider: Morenita Sigala APRN CRNA) at 75-100 mL/hr, Intravenous, CONTINUOUS , UNLESS otherwise indicated., Pre-procedure 1517 (Anesthesia Vol ume Adjustment - Provider: Yi Pereira, RAW MATERIAL HANDLER AUTOMOTIVE PAINTER HELPER) PRN Medication Order 03/04/2013 03/05/2013 03/06/2013 fentaNYL (SUBLIMAZE) injection 25-50 mcg (CANCELED) 1548 (Given - Provider: Nancy Muniz, RN)1600 (Given - Provider: Nancy Muniz, RN) 25-50 mcg, Intravenous, EVERY 15 MIN PRN , Starting 03/06/13 at 1544, other, acute pain while in Phase II, MAX cumulative dose = 250 mcg. Use Fentanyl initially, as a short acting agent for acute pain control. If insufficient, or a longer a cting agent is needed, begin Morphine or Hydromorphone if ordered., Phase ll NONFORMULARY (CANCELED) 1354 (Gi juancho - Provider: Abdirashid Mabry MD - Comment: mix bupiviacain 0.25% with epinephrine 1:200,00=30ml, lidocaine 1%= 50ml, 8.4% sodium bicarbonate=5ml total injection 40ml- right, 45ml left)1455 (Given - Provider: Abdirashid Mabry MD) PRN, Starting 03/06/13 at 1354, Intra-procedure 1504 (Canceled Entry - Provider: Abdirashid Mabry MD - Comment: on right side) ondansetron (ZOFRAN) injection 4 mg (CANCELED) 1637 (Given - Provider: Lydia De La O, TYSHAWN) 4 mg, Intravenous, EVERY 30 MIN PRN, larissa sea, vomiting, for 2 Minutes, Starting 03/06/13 at 1544, For 2 doses, MAX total dose = 8 mg, including OR dosing. This is step 1 of the nausea and vomiting pro tocol. If not resolved in 15 minutes, th en go to step 2 (Prochlorperazine if ordered)., PACU/Phase II documented in this encounter Care Teams Claims Associate Relationship Specialty Start Date End Date Christian Steiner MD PCP - General Internal Medicine 08/30/12 Christian Steiner MD PCP - Assigned PCP 08/11/1208/16/18 Christian Steiner MD Assigned PCP 08/11/12 02/22/21 documented as of this encounter
--- OUTSIDE RECORDS SUMMARY | 2022-04-27 07:40 | XMS_ITS | Encounter Summary ---
:1935 Author Organization [place] Address [address] [place] [address] Care Team Providers Name Role Phone Christian Steiner MD Primary Care Provider Unavailable Christian Steiner MD Unavailable Unavailable Christian Steiner MD Unavailable Unavailable Reason for Visit Reason Comments Refill Request metformin 1000 Encounter Details Date Type Department Care Team Description 12/26/2012 Refill [facility] Christian Steiner, Refill Request [facility] Reagan aguilar MD (metformin 1000) [address] [facility] [address] [place] [address] Social History Tobacco Use Types Packs/Day Years Used Date Smoking Tobacco: Former Smokeless Tobacco: Never Alcohol Use Standard Drinks/Week Comments Yes 0 (1 standard drink = 0.6 oz pure alcoho l) occasionally Sex Assigned at Date Recorded Not on file documented as of this encounter Miscellaneous Notes Telephone Encounter - Heather Brantley - 12/28/2012 9:48 AM CDT No A1C in chart. AC1 ordered and refilled medication for 3 months. Heather Brantley RN Telephone Encounter - Yoana Murray - 12/26/2012 12:07 PM CDT Last office visit: 09/07/12 Last refill date: 09/26/12 Special instructions from pharmacy: no BP Readings from Last 1 Encounters: 12/07/12 132/80 No results found for this basename: Cr No results found for this basename: BUN No results found for this basename: potassium No results found for this basename: microalbumin GFR Estimate Date Value Range Status 04/11/2012 73 >60 mL/min/1.7m2 Final No results found for this basename: chol No results found for this basename: hdl No results found for this basename: ldl No results found for this basename: trig No results found for this basename: ast No results found for this basename: alt No results found for this basename: a1c No results found for this basename: tsh [...] results found for this basename: uric ] DUARTE Jackman documented in this encounter Plan of Treatment Upcoming Encounters Date Type Specialty Care Team Description 06/18/2022 Ancillary Procedure Cardiology Abdi Bailey MD [address] [place] [address] (Wo rk) documented as of this encounter Visit Diagnoses Diagnosis Diabetes mellitus, type 2 (H) - Primary Type II or unspecified type diabetes andrea litus without mention of complication, not stated as uncontrolled documented in this encounter Care Teams Betting Clerks Relationship Specialty Start Date End Date Christian Steiner MD PCP - General Internal Medicine 08/30/12 Christian Steiner MD PCP - Assigned PCP 08/11/1208/16/18 Christian Steiner MD Assigned PCP 08/11/12 02/22/21 documented as of this encounter
--- OUTSIDE RECORDS SUMMARY | 2022-04-27 07:40 | XMS_ITS | Encounter Summary ---
:1935 Author Organization [place] Address [facility] [place] [address] Care Team Providers Name Role Phone Christian Steiner MD Primary Care Provider Unavailable Christian Steiner MD Unavailable Unavailable Christian Steiner MD Unavailable Unavailable Reason for Visit (Routine) - Closed Specialty Diagnoses / Procedures Referred By Contact Refer red To Contact Radiology Diagnoses US EXTREM NON-VASC LEFT Procedure Notes: Bilateral localized superficial mass on back. Rh Ultra sound Procedures RADIOLOGY [address] [place], [place] [address] Phone: Fax: Referral ID Status Reason Start Date Expiration Date Visits Requ ested Visits Authorized [id number] Closed 12/12/2012 12/12/2013 1 1 Encounter Details Date Type Department Care Team Description 12/14/2012 Hospital Encounter [facility] Julius King MD Mass on back [facility] [address] [facility] [address] [place] [address] [phone] Social History Tobacco Use Types Packs/Day Years [...] D) 1000 UNITS capsule by mouth daily Co-Enzyme Q-10 10 MG CAPS Take 1 capsule by 0 mouth daily Dose of capsule unknown. Multiple Vitamin (DAILY Take 1 tablet by 0 MULTIVITAMIN PO) mouth daily vitamin B complex with Take 1 tablet by 0 vitamin C (STRESS TAB) mouth daily. tablet bicalutamide (CASODEX) 50 Take 50 mg by 0 12/17/2016 MG tablet mouth daily. atorvastatin (LIPITOR) 10 Take 10 mg by 0 12/30/2012 MG tablet mouth daily. glipiZIDE (GLUCOTROL) 5 MG Take 5 mg by mouth 0 06/25/2014 tablet daily. metFORMIN (GLUCOPHAGE) Take 1 tablet by 180 tablet 0 013 12/26/2012 1000 MG tablet mouth 2 times daily (with meals). documented as of this encounter Plan of Treatment Upcoming Encounters Date Type Specialty Care Team Description 06/18/2022 Ancillary Procedure Cardiology Abdi Bailey MD [address] [place] [id number] (Wo rk) documented as of this encounter Procedures Procedure Name Priority Date/Time Associated Diagnosis Comme nts US EXTREMITY NON Routine 12/14/2012 7:11 AM Mass on back Resul ts for this VASCULAR LEFT CDT procedure are in the results section. documented in this encounter Results US Extremity Non Vascular Left (12/14/2012 7:11 AM CDT) Anatomical Region Laterality Modality Extremity Ultrasound Specimen (Source) Anatomical Collection Method Collection Time Re ceived Time Location / / Volume Laterality 12/14/2012 7:11 AM CDT Impressions 12/16/2012 7:55 AM CDT IMPRESSION: Poorly defined areas of heterogeneous echogenicity corresponding to the palpable lumps. The imaging appearance is nonspecific. RAMAN MONTOYA MD Narrative 12/16/2012 7:55 AM CDT ULTRASOUND EXTREMITY NON-VASCULAR LEFT 7:11 AM HISTORY: Bilateral localized superficial mass on back. COMPARISON: None. FINDINGS: In the area of bilateral palpa ble lumps, there is superficial soft tissue thickening. The tissue appears heterogeneous on ultrasound and there is no discrete m argin. Dimensions are approximately 4.6 x 5.6 x 2.4 cm on the left and 2.2 x 2.3 x 1.6 cm on the right. Procedure Note Raman Montoya MD - 12/16/2012For matting of this note might be different from the original. ULTRASOUND EXTREMITY NON-VASCULAR LEFT 7:11 AM HISTORY: Bilateral localized superficial mass on back. COMPARISON: None. FINDINGS: In the area of bilateral palpa ble lumps, there is superficial soft tissue thickening. The tissue appears heterogeneous on ultrasound and there is no discrete m argin. Dimensions are approximately 4.6 x 5.6 x 2.4 cm on the left and 2.2 x 2.3 x 1.6 cm on the right. IMPRESSION IMPRESSION: Poorly defined areas of hete rogeneous echogenicity corresponding to the palpable lumps. The imaging appearance is nonspecific. RAMAN MONTOYA MD Abdirashid King MD IMG US ORDERABLES documented in this encounter Visit Diagnoses Diagnosis Mass on back Localized superficial swelling, mass, or lump documented in this encounter Care Teams Power Tool Repair Technician Relationship Specialty Start Date End Date Christian Steiner MD PCP - General Internal Medicine 08/30/12 Christian Steiner MD PCP - Assigned PCP 08/11/1208/16/18 Christian Steiner MD Assigned PCP 08/11/12 02/22/21 documented as of this encounter
--- OUTSIDE RECORDS SUMMARY | 2022-04-27 07:40 | XMS_ITS | Encounter Summary ---
:1935 Author Organization [place] Address [address] [place] [address] Care Team Providers Name Role Phone Christian Steiner MD Primary Care Provider Unavailable Christian Steiner MD Unavailable Unavailable Christian Steiner MD Unavailable Unavailable Reason for Visit Reason Onset Date Comments Orders 02/06/2013 Lab Encounter Details Date Type Department Care Team Description 02/06/2013 Telephone [facility] Christian Steiner MD Orders (Lab) [address] [place], [place] [phone] Social History Tobacco Use Types Packs/Day Years Used Date Smoking Tobacco: Former Smokeless Tobacco: Never Alcohol Use Standard Drinks/Week Comments Yes 0 (1 standard drink = 0.6 oz pure alcoho l) occasionally Sex Assigned at Date Recorded Not on file documented as of this encounter Miscellaneous Notes Telephone Encounter - Yeu Ordaz - 02/21/2013 1:12 PM CDT Labs completed. Telephone Encounter - Christian Steiner MD - 02/06/2013 12:33 PM CDT I have generated an order. Please let the patient know. Telephone Encounter - Yue Ordaz - 02/06/2013 9:24 AM CDT Rita Vargas () calling to report that the pharmacy had told them that Humberto would need a Lipid Paneldone prior to more refills. She stated when they had called for a lab appointment, she was told there was no record of needing that. She is requesting that future orders be approved so Hmuberto can have all necessary labs done tomorrow at the appointment. Please advise. documented in this encounter Plan of Treatment Upcoming Encounters Date Type Specialty Care Team Description 06/18/2022 Ancillary Procedure Cardiology Abdi Bailey MD [address] [place] [address] (Wo rk) documented as of this encounter Visit Diagnoses Diagnosis Diabetes mellitus, type 2 (H) - Primary Type II or unspecified type diabetes andrea litus without mention of complication, not stated as uncontrolled Hyperlipidemia LDL goal <100 Other and unspecified hyperlipidemia documented in this encounter Care Teams Rivet Sorter Relationship Specialty Start Date End Date Christian Steiner MD PCP - General Internal Medicine 08/30/12 Christian Steiner MD PCP - Assigned PCP 08/11/1208/16/18 Christian Steiner MD Assigned PCP 08/11/12 02/22/21 documented as of this encounter
--- OUTSIDE RECORDS SUMMARY | 2022-04-27 07:40 | XMS_ITS | Encounter Summary ---
:1935 Author Organization [place] Address [address] [place] [address] Care Team Providers Name Role Phone Christian Steiner MD Primary Care Provider Unavailable Christian Steiner MD Unavailable Unavailable Christian Steiner MD Unavailable Unavailable Reason for Visit Reason Comments Establish Care Encounter Details Date Type Department Care Team Description 09/07/2012 Office Visit [facility] Christian Steiner Diabetes mellitus, type 2 (H) (Primary Dx); Clinic Smiley Arellano MD Hyperlipi demia LDL goal <[address] [address] Social History Tobacco Use Types Packs/Day Years Used Date Smoking Tobacco: Former Smokeless Tobacco: Never Alcohol Use Standard Drinks/Week Comments Yes 0 (1 standard drink = 0.6 oz pure alcoho l) occasionally Sex Assigned at Date Recorded Not on file documented as of this encounter Last Filed Vital Signs Vital Sign Reading Time Taken Comments Blood Pressure 130/86 09/07/2012 11:04 AM CDT Pulse 85 09/07/2012 11:04 AM CDT Temperature 37.1 ??C (98.7 ??F) 09/07/2012 11:04 AM CDT Respiratory Rate 16 09/07/2012 11:04 AM CDT Oxygen Saturation 97% 09/07/2012 11:04 AM CDT Inhaled Oxygen Concentration - - Weight 101.2 kg (223 lb) 09/07/2012 11:04 AM CDT Height 184.2 cm (6' 0.5) 09/07/2012 11:04 AM CDT Body Mass Index 29.83 09/07/2012 11:04 AM CDT documented in this encounter Progress Notes Christian Steiner MD - 09/07/2012 11:55 AM CDT CHIEF COMPLAINT: Chief Complaint Patient presents with ??? Establish Care HISTORY OF PRESENT ILLNESS: Humberto Siddiqui is a 77 year old male who presents with need for a new MD. His clinic has gone over [facility] ( Dr. Whalen). States he feels well. Now on casodex per . meds reviewed in detail. Current Outpatient Prescriptions Medication ??? Cholecalciferol (VITAMIN D) 1000 UNITS capsule ??? vitamin B complex with vitamin C (VITAMIN B COMPLEX) TABS ??? bicalutamide (CASODEX) 50 MG tablet ??? metformin (GLUCOPHAGE) 1000 MG tablet ??? glipiZIDE (GLUCOTROL) 5 MG tablet ??? atorvastatin (LIPITOR) 10 MG tablet ??? aspirin 81 MG tablet ??? Multiple Vitamin (DAILY MULTIVITAMIN PO) ??? Co-Enzyme Q-10 10 MG CAPS Patient Active Problem List Diagnosis ??? Diabetes mellitus, type 2 ??? Malignant neoplasm of prostate ? ? Hyperlipidemia LDL goal <100 ??? Preventive measure Past Medical History Diagnosis Date ??? Diabetes mellitus Type II dx approx. 2004 ? High cholesterol ??? Malignant neoplasm of prostate 2002 Prostate cancer; radioactive seeds ; Dr. Mckee; casodex in 2012 History reviewed. No pertinent past surgical history. Other than seed implants prostate. Family History Problem Relation Age of Onset ??? Diabetes Son type 2 DM age 50 History Social History ??? Marital Status: Spouse Name: N/A Number of Children: N/A ??? Years of Education: N/A Occupational History ??? 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 Smoking status: Former Smoker ??? Smokeless tobacco: Never Used ??? Alcohol Use: Yes occasionally ??? Drug Use: No ??? Sexually Active: Yes -- Female partner(s) Other Topics Concern ??? Not on file Social History Narrative ??? No narrative on file No Known Allergies REVIEW OF SYSTEMS General: negative for, fever, chills, night sweats, headaches Eyes: negative for, visual blurring Resp: No shortness of breath, dyspnea on exertion, cough, or hemoptysis CV: negative for, chest pain and exertional chest pain or pressure Neurologic: negative for and numbness or tingling of feet PHYSICAL EXAM: Vitals: BP 130/86 Pulse 85 Temp(Src) 98.7 ??F (37.1 ??C) (Tympanic) Resp 16 Ht 6' 0.5 (1.842 m) Wt 223 lb (101.152 kg) BMI 29.83 kg/m2 SpO2 97% BMI= Body mass index is 29.83 kg/(m^2). EXAM: Constitutional: healthy, alert and no distress Cardiovascular: negative, PMI normal. No lifts, heaves, or thrills. RRR. No murmurs, clicks gallops or rub ASSESSMENT: 1. Diabetes mellitus, type 2 (250.00) 2. Hyperlipidemia LDL goal <100 (272.4) PLAN: He plans to f/u later this yr. For CPE and labs. Consider pneumovax. Christian Steiner MD documented in this encounter Nursing Notes 09/07/2012 11:15 AM CDT >> MARGARITA HAYNES WedSep 07, 2012 11:08 AM Patient presents with: Establish Care Initial BP 130/86 Pulse 85 Temp(Src) 98.7 ??F (37.1 ??C) (Tympanic) Resp 16 Ht 6' 0.5 (1.842 m) Wt 223 lb (101.152 kg) BMI 29.83 kg/m2 SpO2 97% Estimated Body mass index is 29.83 kg/(m^2) as calculated from the following: Height as of this encounter: 6' .5(1.842 m). Weight as of this encounter: 223 lb(101.152 kg).. BP completed using cuff size: regular Margarita Haynes ENVIRONMENTAL SERVICES DIRECTOR documented in this encounter Plan of Treatment Upcoming Encounters Date Type Specialty Care Team Description 06/18/2022 Ancillary Procedure Cardiology Abdi Bailey MD [address] [place] [address] (Wo rk) documented as of this encounter Visit Diagnoses Diagnosis Diabetes mellitus, type 2 (H) - Primary Type II or unspecified type diabetes andrea litus without mention of complication, not stated as uncontrolled Hyperlipidemia LDL goal <100 Other and unspecified hyperlipidemia documented in this encounter Care Teams Yarn Mercerizer Operator Helper Relationship Specialty Start Date End Date Christian Steiner MD PCP - General Internal Medicine 08/30/12 Christian Steiner MD PCP - Assigned PCP 08/11/1208/16/18 Christian Steiner MD Assigned PCP 08/11/12 02/22/21 documented as of this encounter
--- OUTSIDE RECORDS SUMMARY | 2022-04-27 07:40 | XMS_ITS | Encounter Summary ---
:1935 Author Organization [place] Address [address] [place] [address] Care Team Providers Name Role Phone Quentin Whalen MD Primary Care Provider Reason for Visit Auth/Cert - Closed Specialty Diagnoses / Procedures Referred By Contact Refer red To Contact Gastroenterology Diagnoses Screening Endoscopy Procedures COLONOSCOPY [address] [facility] [place] [address] Phone: Referral ID Status Reason Start Date Expiration Date Visits Requ ested Visits Authorized [id number] Closed 04/17/2011 10/14/2011 1 1 Encounter Details Date Type Department Care Team Description 04/21/2011 Surgery [facility] Marquise Brewster MD Colonoscopy Endoscopy [facility] [address] [place] [address] [place] [address] (Wo rk) Surgery Details Date/Time Status Location OR Service Patient Class Case Case Trauma Class Type Case? 04/21/11 Posted GI GI 02 Gastroenterology Outpatient 11:15 AM Panel 1 Procedure LRB Anes Op Region Wound Class Commen ts Colonoscopy N/A Conscious Rectum II-Clean Colonoscopy Sedation Contaminated TATTOOING, WITH N/A Rectum COLONOSCOPY 2 resolution clips N/A Rectum 2 reso lution clips placed placed Surgeon Surgeon Role Service Panel Marquise Mclean MD Primary Gastroenterology 1 documented in this encounter Social History Tobacco Use Types Packs/Day Years Used Date Smoking Tobacco: Former Alcohol Use Standard Drinks/Week Comments Yes 0 (1 standard drink = 0.6 oz pure alcoho l) occasionally Sex Assigned at Date Recorded Not on file documented as of this encounter Last Filed Vital Signs Vital Sign Reading Time Taken Comments Blood Pressure 138/84 04/21/2011 1:40 PM [employer]ER Pulse 79 04/21/2011 11:34 AM [employer] CO [employer]ER Temperature - - Respiratory Rate 16 04/21/2011 1:40 PM [employer]ER Oxygen Saturation 97% 04/21/2011 1:40 PM [employer]ER Inhaled Oxygen Concentration - - Weight 97.5 kg (215 lb) 04/21/2011 11:34 AM [employer] F[employer]ER Height 182.9 cm (6') 04/21/2011 11:34 AM [employer] CO F[employer]ER Body Mass Index 29.16 04/21/2011 11:34 AM [employer] CO FOUNDER documented in this encounter Medications at Time [...] tablet mouth. documented as of this encounter Consult Notes Marquise Mclean - 04/21/2011 12:15 PM CST Pre-Endoscopy History and Physical Janeth Siddiqui Date of : 1935 Age: [age] year old Date of Procedure: 04/21/2011 Primary care provider: QUENTIN WHALEN MD Type of Endoscopy: colonoscopy Reason for Procedure: screening for colorectal cancer Type of Anesthesia Anticipated: conscious sedation HPI: Janeth is a 75 year old male who will be undergoing [...] history of anesthesia complications or bleeding disorders. Not on File No current outpatient prescriptions on file. Patient Active Problem List Diagnoses Code ??? Diabetes mellitus, type 2 250.00BC Past Medical History Diagnosis Date ??? Diabetes mellitus Type II ??? High cholesterol History reviewed. No pertinent past surgical history. History Substance Use Topics ??? Smoking status: Former Smoker ??? Smokeless tobacco: Not on file ??? Alcohol Use: Yes occasionally History reviewed. No pertinent family history. REVIEW OF SYSTEMS: 5 point ROS negative except as noted above in HPI, including Gen., Resp., CV, GI & system review. PHYSICAL EXAM: BP 166/92 Pulse 79 Resp 16 Ht 1.829 m (6') Wt 97.523 kg (215 lb) BMI 29.16 kg/m2 SpO2 98% Estimated Body mass index is 29.16 kg/(m^2) as calculated from the following: Height as of this encounter: 6' 0(1.829 m). Weight as of this encounter: 215 lb(97.523 kg). GENERAL APPEARANCE: healthy, alert, active and cooperative MENTAL STATUS: alert AIRWAY EXAM: Mallampatti Class I (visualization of the soft palate, fauces, uvula, anterior and posterior pillars) RESP: lungs clear to auscultation - no rales, rhonchi or wheezes CV: regular rates and rhythm DIAGNOSTICS: Not indicated IMPRESSION ASA Class 2 - Mild systemic disease PLAN: Colonoscopy The above has been forwarded to the consulting provider. Signed Electronically by: Marquise Mclean April 21, 2011 [employer] CO F[employer]ER documented in this encounter Nursing Notes Ida Kaur RN - 04/21/2011 12:45 PM CST Methylene blue 1% 1ml mixed with 9cc NS injected around flat polyp of the right colon. I Snare used to inject and then remove polyp with cautery. 2 resolution clips used to close polyp site. [employer] & CO FOUNDER documented in this encounter Plan of Treatment Upcoming Encounters Date Type Specialty Care Team Description 06/18/2022 Ancillary Procedure Cardiology Abdi Bailey MD [address] [place] [id number] (Wo rk) documented as of this encounter Procedures Procedure Name Priority Date/Time Associated Comments Diagnosis SURGICAL PATHOLOGY Routine 04/21/2011 12:43 Resul ts for this EXAM PM [employer] procedure are i n the results section. COLONOSCOPY, WITH 04/21/2011 12:03 Screening HEMORRHAGE CONTROL PM [employer]ER TATTOOING, WITH 04/21/2011 12:03 Screening COLONOSCOPY PM [employer] COLONOSCOPY, 04/21/2011 12:03 Screening FLEXIBLE, WITH LESION PM [employer] REMOVAL USING SNARE COLONOSCOPY Routine 04/21/2011 12:01 Results for this PM [employer]ER procedure are i n the results section. documented in this encounter Results Surgical pathology exam (04/21/2011 12:43 PM EDIT[employer] CO FOUNDER) Component Value Ref Test Analysis Performed At [facility] Range Method Time Signature Copath Report Patient Name: JANETH SIDDIQUI MR#: [id number] Specimen #: [id number] Collected: 04/21/2011 Received: 04/21/2011 Reported: 04/22/2011 13:34 Ordering Phy(s): MARQUISE MCLEAN SPECIMEN(S): Colon polyp, right ascending FINAL DIAGNOSIS: Large intestine, right/ascending colon, biopsy - Tubular saeed noma; no evidence of high grade dysplasia or invasive malignancy.. Electronically signed out by: Rodolfo Kirkpatrick M.D. CLINICAL HISTORY: Screening. GROSS: The specimen is labeled right ascending colon flat polyp. ??The specimen consists of a previously injected polyp with blue d ye measuring 1.2 x 0.7 x 0.5 cm. ??The specimen is inked black, bisected and entirely submitted. ??SI TRS/tw MICROSCOPIC: Examination reveals multiple fragments of colonic mucosa don wing a slight suggestion of some minor serration of crypts but with out a clear cut neoplastic or hyperplastic polyp. ??Additional levels de monstrate a small tubular adenoma with no evidence of high grade dysplas ia or invasive malignancy.. DCS/tw 04/22/2011 TESTING LAB LOCATION: [address] ??[id number] COLLECTION SITE: Client: [facility] Location: [place]O (S) Specimen Anatomical Collection Method Collection Time Receive d Time (Source) Location / / Volume Laterality 04/21/2011 12:43 04/21/2011 2:35 PM [employer] CO FOUNDER PM [employer]OUNDER Marquise BARON - QUETA GRIFFITHS Performing Organization Address City/State/ZIP Code Phon e Number COPATH COLONOSCOPY (04/21/2011 12:01 PM EDIT[employer] CO FOUNDER) [facility] Method Time Signature COLONOSCOPY [facility] RADIOLOGY [facility] Endoscopy Department RESULTS Patient Name: Janeth Siddiqui ? Procedure Date: 04/21/2011 12:01:46 PM ? Date of : 1935 ? Admit Type: Outpatient ? Age: 75 ? Room: 2 ? Note Status: Finalized ?Attending MD: Marquise Ferrer MD ? Procedure: ?Colonoscopy Indications: ?Screeni ng for malignant neoplasm in the colon Providers: ?Marquise Mclean MD, Ge Kaur RN Patient Profile: ?This is a 75 year old male. Referring MD: ? Quentin Whalen MD Medicines: ?Midazolam 2 mg IV, Fentanyl 100 micrograms IV Complications: ?No immediate complications Procedure: ?Pre-Anesthesia Assessment: ?- Prior to the procedure, a History and Physical ?was performed, and patient medications, allergies ?and sensitivities have been reviewed. The patient's ?tolerance of previous anesthesia has been reviewed. ?- The risks and benefits of the procedure and the ?sedation options and risks were discussed with the ?patient. All questions were answered and informed ?consent was obtained. ?- Patient identification and proposed procedure ?were verified prior to the procedure by the ?physician. The procedure was verified in the ?procedure room. ?After obtaining informed consent, the colonoscope ?was passed under direct vision. Throughout the ?procedure, the patient's blood pressure, pulse, and ?oxygen saturations were monitored continuously. The ?Colonoscope was introduced through the anus and ?advanced to the terminal ileum. The colonoscopy was ?performed without difficulty. The patient tolerated ?the procedure well. The quality of the bowel ?preparation was excel lent. ? Findings: ? Perianal examination was normal. The digi sloane rectal exam was abnormal. ? Findings include enlarged prostate. Perti nent negatives include normal ? sphincter tone and no palpable rectal lesions. The te rminal ileum ? appeared normal. A sessile polyp was foun d in the ascending colon. The ? polyp was 10 mm in size. The polyp was removed with a saline ? injection-lift techni que using a hot snare. Resection and retrieval were ? complete. Estimated blood loss was minimal. Two ligat ures were ? successfully placed. There was no bleeding duri ng, and at the end, of ? the procedure. Non-bleeding internal hemorrhoids were found during ? retroflexion and were medium-sized. ? Impression: ? - Rectal exam revealed enla rged prostate. ?- The examined portion of the ileum was normal. ?- One 10 mm polyp in the ascending colon. Resected ?and retrieved. Recommendation: ? - Discharge patient to home ( ambulatory). ?- No aspi rin or NSAIDs (ibuprofen like ?medications), no heavy lifting or straining at ?stool for ten days. ?- Await pathology res ults. ?- Repeat colonoscopy in 3 - 5 years for ?surveillance based on pathology results. ?- Return to referri physician PRN. ? Marquise Mclean MD Signed Date: 04/21/2011 12:58:22 PM Number of Addenda: 0 I was physically present for the entire viewing portion of t he exam. Note Initiated On: 04/21/2011 12:01:46 PM Scope Withdrawal Time: 0 hours 23 minutes 7 seconds Total Procedure Duration: 0 hours 30 minutes 48 seconds Specimen (Source) Anatomical Collection Method Collection Time Re ceived Time Location / / Volume Laterality 04/21/2011 12:01 PM [employer]ER Quentin Whalen MD PROCEDURES Performing Organization Address City/State/ZIP Code Phon e Number RADIOLOGY RESULTS documented in this encounter Visit Diagnoses Not on filedocumented in this encounter Administered Medications Inactive Administered Medications - up to 3 most recent administrations Medication Order MAR Action Action Date Dose Rate Site fentanyl (SUBLIMAZE) injection Given 04/21/2011 12:22 PM [employer]ER 50 mcg PRN, moderate to severe pain, Starting on Wed04/21/11 at 1214, Intra-procedure Given 04/21/2011 12:14 PM [employer]ER 50 mcg midazolam (VERSED) injection Given 04/21/2011 12:23 PM [employer] FOUNDER 1 mg PRN, anxiety, Starting on Wed04/21/11 at 1215, Intra-procedure Given 04/21/2011 12:15 PM [employer]ER 1 mg documented in this encounter Active and Recently Administered Medications Due to Daylight Saving Time, this section may contain times in both CDT and [employer]ER. PRN Medication Order 04/19/2011 04/20/2011 04/21/2011 fentanyl (SUBLIMAZE) injection (CANCELED) 1214 (Given - Provider: Ida Kaur RN)1222 (Given - Provider: Ida Kaur RN) PRN, moderate to severe pain, Starting Wed04/21/11 at 1214, Intr a-procedure midazolam (VERSED) injection (CANCELED) 1215 (Given - Provider: Ida Kaur RN)1223 (Given - Provider: Ida Kaur RN) PRN, anxiety, Starting Wed04/21/11 at 1215, Intra-procedure documented in this encounter Care Teams Woodworking Machine Feeder Relationship Specialty Start Date End Date Quentin Whalen MD PCP - General Internal Medicine 04/16/11 08/29/12 documented as of this encounter
--- OUTSIDE RECORDS SUMMARY | 2022-04-27 07:40 | XMS_ITS | Encounter Summary ---
:1935 Author Organization [place] Address [facility] [place] [address] Care Team Providers Name Role Phone Unavailable Primary Care Provider Unavailable Encounter Details Date Type Department Care Team Description 03/09/2006 GI Procedure [facility] Marquise Mckinney MD None Endoscopy [facility] [address] [place] [phone] [address] [place] [address] (Wo rk) Social History Tobacco Use Types Packs/Day Years Used Date Smoking Tobacco: Never Assessed Sex Assigned at Date Recorded Not on file documented as of this encounter Plan of Treatment Upcoming Encounters Date Type Specialty Care Team Description 06/18/2022 Ancillary Procedure Cardiology Abdi Bailey MD [address] [facility] [address] [place], [place] [phone] (Wo rk) documented as of this encounter Procedures Procedure Name Priority Date/Time Associated Diagnosis Comme nts COLONOSCOPY Routine 03/09/2006 8:55 AM Results f or this CDT procedure are i n the results section . documented in this encounter Results COLONOSCOPY (03/09/2006 8:55 AM CDT) [facility] Method Time Signature COLONOSCOPY [facility] RADIO LOGY [facility] Endoscopy Department RESULTS Patient Name: Humberto Siddiqui ? Gender: M ? Procedure Date: 03/09/2006 8: 55 AM ? SSN: [id number] ?Date of : 1935 ? Age: 70 ? Admit Type: Outpatient ? Room: 6 ? Note Status: Finalized ?Attending MD: Marquise Mckinney ? Pause For The Cause: Pause for the ca Procedure: ?Colonoscopy Indications: ?Personal history of colonic polyps Providers: ?Marquise Mckinney MD, Kellee Kenyon, RN Referring MD: ?? Wily Whalen MD Medicines: ?Fentanyl IV 100 mcgs, Versed IV 2 mgs Complications: ??No immediate complications Procedure: ?- A History and Physical has been perfo rmed, and patient ?medi cation allergies have been reviewed. The patient The ?risk s and benefits of the procedure and the sedation options ?and risks were discussed with the patient. All questions were ?answered and informed consent was obtained. Patient ?iden tification and proposed procedure were verified prior to ?the procedure by the physician in the procedure room. Mental ?Status Examinati on: normal. Airway Examination: normal ?oropharyngeal airway and neck mobi lity. Respiratory ?Exam ination: clear to auscultation. CV Examination: normal. ?ASA Grade Assessment: P2 A patient with mild systemic ?dise ase. After reviewing the risks and benefits, the patient ?was deemed in satisfactory conditi on to undergo the ?proc edure. The anesthesia plan was to use moderate sedation / ?analgesia (conscious sedation) . Immediately prior to ?admi nistration of medications, the patient was re-assessed ?for adequacy to receive sedatives. T he heart rate, ?respiratory rate, oxygen saturations, blood pressure, ?adeq uacy of pulmonary ventilation, and response to care were ?rhoda tored throughout the procedure. The physical status of ?the patient was re-assessed after th e procedure. ?Afte r obtaining informed consent, the colonoscope was passed ?unde r direct vision. Throughout the procedure, the patient's ?bloo d pressure, pulse, and oxygen saturations were monitored ?cont inuously. The [id number] was introduced ?thro ugh the anus and advanced to the ileum. The colonoscopy ?was accomplished without difficulty. The patient tolerated ?the procedure well. The quality of the prep was good. ? Findings: ? The vascular pattern in the rectum was locally increa sed. The blood ? 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 Internal, non bleeding, mild hemorrhoids ? were found during retroflexion. A few small-mouthed diverticula were ? found in the sigmoid colon. The e xam was otherwise without abnormality. ? Impression: ? - Increased vascular pattern in the rectum . 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 ?- Internal, non bleeding, mild hemorrhoids were found. ?- Diverticulosis. ?- The examination was otherwise norm al. Recommendation: - Discharge patient to home (ambulatory). ?- Repeat colonoscopy in 5 years for surveillance. ?- Return to referring provider PRN. ? CPT Code(s): ?14609, Colonoscopy, flexible, proxim al to splenic flexure; ?diag nostic, with or without collection of specimen(s) by ?brus richie or washing, with or without colon decompression ?(separate procedure) ICD Code(s): ?455.0, Internal Hemorrhoids Wi thout Mention of Complication ?V12.72, Personal History of Colonic Polyps The codes documented in this report are prelimin leila and upon invoice coder review may be revised to meet current compliance requirements. Signed electronically by Marquise Mckinney MD Marquise Mckinney MD Signed Date: 03/09/2006 9:48 AM Number of Addenda: 0 I was physically present for the entire viewing portion of t he exam. Note generated on 03/09/2006 8:56 AM COLONOSCOPY RADIOLOGY RESULTS Specimen (Source) Anatomical Collection Method Collection Time Re ceived Time Location / / Volume Laterality 03/09/2006 8:55 AM CDT Marquise Mckinney MD PROCEDURES Performing Organization Address City/State/ZIP Code Phon e Number RADIOLOGY RESULTS documented in this encounter Visit Diagnoses Not on filedocumented in this encounter
--- OUTSIDE RECORDS SUMMARY | 2022-04-27 07:40 | XMS_ITS | Encounter Summary ---
:1935 Author Organization [place] Address [facility] [place] [address] Care Team Providers Name Role Phone Christian Steiner MD Primary Care Provider Unavailable Chrisitan Steiner MD Unavailable Unavailable Christian Steiner MD Unavailable Unavailable Encounter Details Date Type Department Care Team Description 12/12/2012 Orders Only [facility] Abdirashid King MD Mass on back (Primary [facility] [address] D[address]) [address] [place], [place] [phone] Social History Tobacco Use Types Packs/Day Years [...] [address] [place] [address] (Wo rk) documented as of this encounter Visit Diagnoses Diagnosis Mass on back - Primary Localized superficial swelling, mass, or lump documented in this encounter Care Teams Him Specialists Relationship Specialty Start Date End Date Christian Steiner MD PCP - General Internal Medicine 08/30/12 Christian Steiner MD PCP - Assigned PCP 08/11/1208/16/18 Christian Steiner MD Assigned PCP 08/11/12 02/22/21 documented as of this encounter
--- OUTSIDE RECORDS SUMMARY | 2022-04-27 07:40 | XMS_ITS | Encounter Summary ---
:1935 Author Organization [place] Address [facility] [place] [address] Care Team Providers Name Role Phone Wily Whalen MD Primary Care Provider Reason for Visit Auth/Cert - Closed Specialty Diagnoses / Procedures Referred By Contact Refer red To Contact Gastroenterology Diagnoses Screening Endoscopy Procedures COLONOSCOPY [address] [facility] [address] [place] [phone] Phone: Referral ID Status Reason Start Date Expiration Date Visits Requ ested Visits Authorized [id number] Closed 04/17/2011 10/14/2011 1 1 Encounter Details Date Type Department Care Team Description 04/21/2011 Hospital Encounter [facility] Jenny Mclean MD [facility] Endoscopy [facility] [address] [facility] [address] [facility] [place] [phone] [address] [place] [address] (Wo rk) Social History Tobacco Use Types Packs/Day Years Used Date Smoking Tobacco: Former Alcohol Use Standard Drinks/Week Comments Yes 0 (1 standard drink = 0.6 oz pure alcoho l) occasionally Sex Assigned at Date Recorded Not on file documented as of this encounter Last Filed Vital Signs Vital Sign Reading Time Taken Comments Blood Pressure 138/84 04/21/2011 1:40 PM BACK PANEL PADDER Pulse 79 04/21/2011 11:34 AM BACK PANEL PADDER Temperature - - Respiratory Rate 16 04/21/2011 1:40 PM BACK PANEL PADDER Oxygen Saturation 97% 04/21/2011 1:40 PM BACK PANEL PADDER Inhaled Oxygen Concentration - - Weight 97.5 kg (215 lb) 04/21/2011 11:34 AM BACK PANEL PADDER Height 182.9 cm (6') 04/21/2011 11:34 AM BACK PANEL PADDER Body Mass Index 29.16 04/21/2011 11:34 AM BACK PANEL PADDER documented in this encounter Medications at Time [...] Date of Procedure: 04/21/2011 Primary care provider: WILY WHALEN MD Type of Endoscopy: colonoscopy Reason [...] Electronically by: Marquise Mclean April 21, 2011 PANEL PADDER documented in this encounter Nursing Notes Ida Kaur RN - 04/21/2011 12:45 PM CST Methylene blue 1% 1ml mixed with 9cc NS injected around flat polyp of the right colon. I Snare used to inject and then remove polyp with cautery. 2 resolution clips used to close polyp site. PANEL PADDER documented in this encounter Plan of Treatment Upcoming Encounters Date Type Specialty Care Team Description 06/18/2022 Ancillary Procedure Cardiology Abdi Bailey MD [address] [place] [id number] (Wo rk) documented as of this encounter Procedures Procedure Name Priority Date/Time Associated Comments Diagnosis SURGICAL PATHOLOGY Routine 04/21/2011 12:43 Resul ts for this EXAM PM BACK PANEL PADDER procedure are i n the results section. COLONOSCOPY, WITH 04/21/2011 12:03 Screening HEMORRHAGE CONTROL PM BACK PANEL PADDER TATTOOING, WITH 04/21/2011 12:03 Screening COLONOSCOPY PM BACK PANEL PADDER COLONOSCOPY, 04/21/2011 12:03 Screening FLEXIBLE, WITH LESION PM BACK PANEL PADDER REMOVAL USING SNARE COLONOSCOPY Routine 04/21/2011 12:01 Results for this PM BACK PANEL PADDER procedure are i n the results section. documented in this encounter Results Surgical pathology exam (04/21/2011 12:43 PM BACK PANEL PADDER) Component Value Ref Test Analysis Performed At [facility] Range Method Time Signature Copath Report Patient Name: JANETH SIDDIQUI MR#: [id number] Specimen #: [id number] Collected: 04/21/2011 Received: 04/21/2011 Reported: 04/22/2011 13:34 [...] invasive malignancy.. DCS/tw 04/22/2011 TESTING LAB LOCATION: [address] ??[phone] COLLECTION SITE: Client: [facility] Location: [facility] (S) Specimen Anatomical Collection Method Collection Time Receive d Time (Source) Location / / Volume Laterality 04/21/2011 12:43 04/21/2011 2:35 PM BACK PANEL PADDER PM BACK PANEL PADDER Marquise BARON - QUETA GRIFFITHS Performing Organization Address City/State/ZIP Code Phon e Number [place]ATH COLONOSCOPY (04/21/2011 12:01 PM BACK PANEL PADDER) [facility] Method Time Signature COLONOSCOPY [facility] RADIOLOGY [facility] Endoscopy Department RESULTS Patient Name: Janeth Siddiqui [...] 75 year old male. Referring MD: ? Wily Wahlen MD Medicines: ?Midazolam 2 mg IV, Fentanyl [...] / / Volume Laterality 04/21/2011 12:01 PM BACK PANEL PADDER Wily Whalen MD PROCEDURES Performing Organization Address City/State/ZIP Code Phon e Number RADIOLOGY RESULTS documented in this encounter Visit Diagnoses Diagnosis Diabetes mellitus, type 2 (H) Type II or unspecified type diabetes andrea litus without mention of complication, not stated as uncontrolled documented in this encounter Active and Recently Administered Medications Due to Daylight Saving Time, this section may contain times in both CDT and BACK PANEL PADDER. PRN Medication Order 04/19/2011 04/20/2011 04/21/2011 fentanyl (SUBLIMAZE) injection (CANCELED) 1214 (Given - Provider: Ida Kaur, RN)1222 (Given - Provider: Ida Kaur, RN) PRN, moderate to severe pain, Starting 04/21/11 at 1214, Intr a-procedure midazolam (VERSED) injection (CANCELED) 1215 (Given - Provider: Ida Kaur, RN)1223 (Given - Provider: Ida Kaur, RN) PRN, anxiety, Starting Wed04/21/11 at 1215, Intra-procedure documented in this encounter Care Teams Lubrication Servicer Relationship Specialty Start Date End Date Wily Whalen MD PCP - General Internal Medicine 04/16/11 08/29/12 documented as of this encounter
--- OUTSIDE RECORDS SUMMARY | 2022-04-27 07:40 | XMS_ITS | Encounter Summary ---
:1935 Author Organization [place] Address [facility] [place] [address] Care Team Providers Name Role Phone Christian Steiner MD Primary Care Provider Unavailable Christian Steiner MD Unavailable Unavailable Christian Steiner MD Unavailable Unavailable Encounter Details Date Type Department Care Team Description 02/07/2013 Orders Only [facility] Alexandra betes mellitus, type 2 (H); [facility] Hype rlipidemia LDL goal <[address] [facility] [address] [place] [address] Social History Tobacco Use Types [...] Ancillary Procedure Cardiology Abdi Bailey MD [address] [facility] [address] [place] [address] (Wo rk) documented as of this encounter Procedures Procedure Name Priority Date/Time Associated Diagnosis Comme nts ALBUMIN RANDOM URINE Routine 02/07/2013 8:38 Diabetes mellitus , Results for this QUANTITATIVE AM CDT type 2 (H) procedure are i n the results section. LIPID PROFILE Routine 02/07/2013 8:36 Hyperlipidemia LDL Resul ts for this AM CDT goal <100 procedure are i n the results section. HEMOGLOBIN A1C Routine 02/07/2013 8:36 Diabetes mellitus, Resu lts for this AM CDT type 2 (H) procedure are i n the results section. COMPREHENSIVE Routine 02/07/2013 8:36 Diabetes mellitus, Resul ts for this METABOLIC PANEL AM CDT type 2 (H) procedure ar e in the results section. VITAMIN B12 Routine 02/07/2013 8:36 Diabetes mellitus, Result s for this AM CDT type 2 (H) procedure are i n the results section. documented in this encounter Results Microalbumin quantitative, random urine (02/07/2013 8:38 AM CDT) Component Value Ref Test Analysis Performed At [facility] Range Method Time Signature Creatinine 134 mg/dL [facility] Urine [facility] Albumin Urine <5 mg/L [facility] mg/L Urine Microalbumin lowest re portable value has been changed from 2 mg/L to 5 [facility] mg/L due to a methodology change on September. [place] [facility] Albumin Urine Unable to 0 - 17 [facility] mg/g Cr calculate mg/g Cr [facility] Specimen Anatomical Collection Method Collection Time Receive d Time (Source) Location / / Volume Laterality Urine specimen 02/07/2013 8:38 AM 013 8:43 (specimen) CDT AM CDT Christian Steiner MD LAB - URINE ORDERABLES Performing Organization Address City/State/ZIP Code Phon e Number [address] LABS Vitamin B12 (02/07/2013 8:36 AM CDT) athologist Signature Vitamin B12 802 >210 pg/mL [facility] Comment: Interp: [phone] = Normal Specimen Anatomical Collection Method Collection Time Receive d Time (Source) Location / / Volume Laterality Blood specimen 02/07/2013 8:36 AM 013 8:42 (specimen) CDT AM CDT Christian Steiner MD LAB - BLOOD ORDERABLES Performing Organization Address City/[facility]/ZIP Code Phon e Number [address] LABS (ABNORMAL) Hemoglobin A1c (02/07/2013 8:36 AM CDT) [facility] Method Time Signature Hemoglobin A1C 6.7 (H) 4.3 - 6.0 [facility] Specimen Anatomical Collection Method Collection Time Receive d Time (Source) Location / / Volume Laterality Blood specimen 02/07/2013 8:36 AM 013 8:42 (specimen) CDT AM CDT Christian Steiner MD LAB - BLOOD ORDERABLES Performing Organization Address City/[facility]/ZIP Code Phon e Number [address] [address] [facility] Lipid Profile (Chol, Trig, HDL, LDL calc) (02/07/2013 8:36 AM CDT) athologist Signature Cholesterol 164 0 - 200 [place] mg/dL [facility] Comment: LDL Cholesterol is the primary guide to therapy. The NCEP recommends further evaluation of: patients with cholesterol greater than 200 mg/dL if additional risk facto rs are present, cholesterol greater than 240 mg/dL, triglycerides greater than 1 50 mg/dL, or HDL less than 40 mg/dL. Triglycerides 68 0 - 150 mg/dL [facility] Comment: Fasting specimen HDL Cholesterol 41 40 - 110 mg/dL [facility] LDL Cholesterol Calculated 109 0 - 129 mg/dL [facility] Comment: LDL Cholesterol is the primary guide to therapy: LDL-cholesterol goal in high risk patients is <100 mg/dL and in very high risk patients is <70 mg/dL. VLDL-Cholesterol 14 0 - 30 mg/dL [facility] Cholesterol/HDL Ratio 4.0 0.0 - 5.0 [facility] Specimen Anatomical Collection Method Collection Time Receive d Time (Source) Location / / Volume Laterality Blood specimen 02/07/2013 8:36 AM 013 8:42 (specimen) CDT AM CDT Christian Steiner MD LAB - BLOOD ORDERABLES Performing Organization Address City/[facility]/ZIP Code Phon e Number [address] [address] [address] [address] [facility] LAB (ABNORMAL) Comprehensive metabolic panel (BMP + Alb, Alk Phos, ALT, AST, Total. Bili, TP) (02/07/2013 8:36 AM CDT) Analysis Performed At Patho logist Time Signature Sodium 138 133 - 144 [place] mmol/L [facility] Potassium 4.2 3.4 - 5.3 [place] mmol/L [facility] Chloride 100 94 - 109 [place] mmol/L [facility] Carbon Dioxide 27 20 - 32 [place] mmol/L [facility] Anion Gap 10.9 6 - 17 [place] mmol/L [facility] Glucose 165 (H) 60 - 99 [place] mg/dL [facility] Comment: Fasting specimen Urea Nitrogen 25 7 - 30 mg/dL [facility] Creatinine 1.30 (H) 0.66 - 1.25 mg/dL [facility] GFR Estimate 54 (L) >60 mL/min/1.7m2 [place] B [facility] GFR Estimate If Black 65 >60 mL/min/1.7m2 F [facility] Calcium 8.4 (L) 8.5 - 10.4 mg/dL [facility] Bilirubin Total 0.6 0.2 - 1.3 mg/dL [facility] Albumin 4.0 3.3 - 4.9 g/dL [facility] Protein Total 7.1 6.8 - 8.8 g/dL [facility] Alkaline Phosphatase 92 40 - 150 U/L [facility] ALT 45 0 - 70 U/L [facility] AST 29 0 - 45 U/L [facility] Specimen Anatomical Collection Method Collection Time Receive d Time (Source) Location / / Volume Laterality Blood specimen 02/07/2013 8:36 AM 013 8:42 (specimen) CDT AM CDT Christian Steiner MD LAB - BLOOD ORDERABLES Performing Organization Address City/State/ZIP Code Phon e Number [facility] [address] [place] [address] [facility] [address] [place] [address] [facility] documented in this encounter Visit Diagnoses Diagnosis Diabetes mellitus, type 2 (H) Type II or unspecified type diabetes andrea litus without mention of complication, not stated as uncontrolled Hyperlipidemia LDL goal <100 Other and unspecified hyperlipidemia documented in this encounter Care Teams Sew On Operator Relationship Specialty Start Date End Date Christian Steiner MD PCP - General Internal Medicine 08/30/12 Christian Steiner MD PCP - Assigned PCP 08/11/1208/16/18 Christian Steiner MD Assigned PCP 08/11/12 02/22/21 documented as of this encounter
--- OUTSIDE RECORDS SUMMARY | 2022-04-27 07:40 | XMS_ITS | Encounter Summary ---
:1935 Author Organization [place] Address [facility] [place] [address] Care Team Providers Name Role Phone Wily Whalen MD Primary Care Provider Encounter Details Date Type Department Care Team Description 04/11/2012 Results Only [facility] Results Coy hercules MD XXX RETIRED XXX [address] [place] [address] (Wo rk) Social History Tobacco Use Types [...] Bailey MD [address] [place], [place] [phone] (Wo rk) documented as of this encounter Procedures Procedure Name Priority Date/Time Associated Diagnosis Comme nts NM BONE SCAN WHOLE Routine 04/11/2012 2:30 PM Res ults for this BODY CDT procedure are i n the results section. documented in this encounter Results NM Bone whole body (04/11/2012 2:30 PM CDT) Anatomical Region Laterality Modality Whole Body, SUBRAD CT BODY, UMP NUC MED Other Specimen (Source) Anatomical Collection Method Collection Time Re ceived Time Location / / Volume Laterality 04/11/2012 2:30 PM CDT Impressions 04/11/2012 3:48 PM CDT NUCLEAR MEDICINE BONE FULL BODY 04/11/20 12 2:31 PM HISTORY: Prostate cancer restaging. TECHNIQUE: 28.5mCi of Tc MDP inj in L AC IV @ 10:50 by JH. COMPARISON: Prior bone scan: None available. Relevant imaging study: 04/11/2012 CT. FINDINGS: Increased activity at the acro mioclavicular joints, wrists, knees, and mid feet is likely degenerati ve. Increased activity asymmetrically along the lateral margin of the left greater trochanter is also likely degenerative. No CT evidence of a sclerotic bone lesion in this location. ??Increase d activity in the cervical spine is nonspecific, but could be degen erative. Normal renal uptake is seen bilaterally. IMPRESSION: Scattered degenerative incre ased activity. No convincing evidence of osseous metastasis. Ryley Mckee MD IMG NM ORDERABLES documented in this encounter Visit Diagnoses Not on filedocumented in this encounter Care Teams Psychological Aide Relationship Specialty Start Date End Date Wily Whalen MD PCP - General Internal Medicine 04/16/11 08/29/12 documented as of this encounter
--- OUTSIDE RECORDS SUMMARY | 2022-04-27 07:40 | XMS_ITS | Encounter Summary ---
:1935 Author Organization [place] Address [address] [facility] [place] [address] Care Team Providers Name Role Phone Christian Steiner MD Primary Care Provider Unavailable Christian Steiner MD Unavailable Unavailable Christian Steiner MD Unavailable Unavailable Reason for Visit Auth/Cert - Closed Specialty Diagnoses / Procedures Referred By Contact Refer red To Contact Surgery Diagnoses Mass Rh Periop Services Procedures EXCISE MASS BACK [address] [place], [place] [address] Phone: Fax: Referral ID Status Reason Start Date Expiration Date Visits Requ ested Visits Authorized [id number] Closed 1 1 Encounter Details Date Type Department Care Team Description 03/06/2013 Surgery [facility] Abdirashid Mabry MD Excision Left Back Mass, [facility] [address] and Right Back Mass [address] [place] [address] [phone] Surgery Details Date/Time Status Location OR Service Patient Case Class Case Type Trauma Class Case? 03/06/13 1:20 Posted [facility] OR OR 03 General Same Day PM Surgery Panel 1 Procedure LRB Anes Op Region Wound Class Commen ts Excision Left Back Mass, Bilateral MAC Back I-Clean Excision Left Back and Right Back Mass Mass, and Right Back Mass Surgeon Surgeon Role Service Panel Abdirashid Mabry MD Primary General 1 Special Needs 6'0.5 / 216# 6.4oz per H&P documented in this encounter Social History Tobacco [...] Sign Reading Time Taken Comments Blood Pressure 158/103 03/06/2013 12:23 PM CDT Pulse - - Temperature 35.9 ??C (96.6 ??F) 03/06/2013 12:23 PM CDT Respiratory Rate 18 03/06/2013 12:23 PM CDT Oxygen Saturation 98% 03/06/2013 12:23 PM CDT Inhaled Oxygen Concentration - - Weight 98 kg (216 lb) 03/06/2013 12:15 PM CDT Height 182.9 cm (6') 03/06/2013 12:15 PM CDT Body Mass Index 29.29 03/06/2013 12:15 PM CDT documented in this encounter Discharge Instructions Discharge InstructionsNancy Muniz RN - 03/06/2013 3:41 PM CDT HOME [...] Steiner MD - 02/28/2013 8:15 AM CDT [address] [address] Dept: PRE-OP EVALUATION: Today's date: 02/28/2013 Janeth Siddiqui (: 1935) presents for pre-operative evaluation assessment as requested by . He requires evaluation and anesthesia risk assessment prior to undergoing surgery/procedure for treatment of cyst . Proposed procedure: cyst on back Date of Surgery/ Procedure: 03/06/13 Time of Surgery/ Procedure: 12:30 Hospital/Surgical Facility: [facility] Fax number for surgical facility: Primary Physician: [...] cardiovascular risks for perioperative complications such as (TN, PE, VFib and 3?? AV Block): No [...] evaluation report is provided to requesting physician. [facility] Preop Guidelines 2012 Abdirashid Mabry MD - 03/02/2013 6:01 PM [...] MABRY MD MT: [id number] Name: JANETH SIDDIQUI MRN: [id number] Account: [id number] : 1935 Procedure Date: 03/06/2013 Document: [id number] Brief Op Note - Abdirashid Mabry MD [...] [address] [place] [address] (Wo rk) documented as of this encounter [...] POINT OF CARE mg/dL TEST, GLUCOSE Comment: /RN Notified Specimen Anatomical Collection Method Collection Time Receive d Time (Source) Location / / Volume Laterality 03/06/2013 5:22 PM 3 5:25 CDT PM CDT Abdirashid BARON - QUETA POCT Performing Organization Address City/State/ZIP Code Phon [...] 3:45 CDT PM CDT Abdirashid BARON - QUETA POCT Performing Organization Address City/State/[facility] Phon e Number FV POINT OF CARE TEST, GLUCOSE POINT OF CARE TEST, GLUCOSE Surgical pathology exam (03/06/2013 2:51 PM CDT) Component Value Ref Test Analysis Performed At [facility] Range Method Time Signature Copath Patient Name: JANETH SIDDIQUI Report MR#: [id number] Specimen #: [id number] Collected: 03/06/2013 Received: 03/06/2013 Reported: 03/07/2013 18:22 [...] reviewed (MGP). SA/sg 03-07-13 TESTING LAB LOCATION: [address] ??[phone] COLLECTION SITE: Client: [facility] Location: RHOR (R) Specimen Anatomical Collection Method Collection Time Receive d Time (Source) Location / / Volume Laterality 03/06/2013 2:51 PM 3 2:55 CDT PM CDT Abdirashid BIRCH AP Performing Organization Address City/State/ZIP Code Phon e Number COPATH (ABNORMAL) Glucose by meter (03/06/2013 2:30 PM CDT) P athologist Signature Glucose 184 (H) 60 - 99 POINT OF CARE mg/dL TEST, GLUCOSE Specimen Anatomical Collection Method Collection Time Receive d Time (Source) Location / / Volume Laterality 03/06/2013 2:30 PM 3 2:35 CDT PM CDT Abdirashid BIRCH POCT Performing Organization Address City/[facility]/ZIP Code Phon e Number FV POINT OF CARE TEST, GLUCOSE POINT OF CARE TEST, GLUCOSE documented in this encounter Visit Diagnoses Not [...] Given 03/06/2013 3:48 PM CDT 50 mcg NONFORMULARY Given 03/06/2013 2:55 PM 69 mLs Operative PRN, Starting on Wed03/06/13 CDT Site/Surgical Site at 1354, Intra-procedure Given 03/06/2013 1:54 PM CDT 18 mLs Opera tive Site/Surgical Site ondansetron (ZOFRAN) injection 4 mg Given 03/06/2013 [...] (New Bag - Provider: Morenita Sigala APRN WASH TEST CHECKER)1400 (Anesthesia Volume Adjustment - Provider: Morenita Sigala APRN WASH TEST CHECKER) at 75-100 mL/hr, Intravenous, CONTINUOUS , UNLESS otherwise indicated., Pre-procedure 1517 (Anesthesia Vol ume Adjustment - Provider: Yi Pereira APRN WASH TEST CHECKER) PRN Medication Order 03/04/2013 03/05/2013 03/06/2013 fentaNYL (SUBLIMAZE) injection 25-50 mcg (CANCELED) 1548 (Given - Provider: Nancy Muniz RN)1600 (Given - Provider: Nancy Muniz RN) 25-50 mcg, Intravenous, EVERY 15 MIN [...] mg (CANCELED) 1637 (Given - Provider: Lydia E De La O, RN) 4 mg, Intravenous, EVERY 30 MIN PRN, larissa sea, vomiting, for 2 Minutes, Starting 03/06/13 at 1544, For 2 doses, MAX total dose = 8 mg, including OR dosing. This is step 1 of the nausea and vomiting pro tocol. If not resolved in 15 minutes, th en go to step 2 (Prochlorperazine if ordered)., PACU/Phase II documented in this encounter Care Teams Prospect Manager Relationship Specialty Start Date End Date Christian Steiner MD PCP - General Internal Medicine 08/30/12 Christian Steiner MD PCP - Assigned PCP 08/11/1208/16/18 Christian Steiner MD Assigned PCP 08/11/12 02/22/21 documented as of this encounter
--- OUTSIDE RECORDS SUMMARY | 2022-04-27 07:40 | XMS_ITS | Encounter Summary ---
:1935 Author Organization [place] Address [facility] [place] [address] Care Team Providers Name Role Phone Wily Whalen MD Primary Care Provider Reason for Visit (Routine) - Closed Specialty Diagnoses / Procedures Referred By Contact Refer red To Contact Radiology Diagnoses NM RADIOPHARMACEUT INJ Procedure Notes: Prostate cancer restaging. Nuclear Medicine Procedures RADIOLOGY [address] [place] [address] Phone: Referral ID Status Reason Start Date Expiration Date Visits Requ ested Visits Authorized [id number] Closed 04/07/2012 04/07/2013 1 1 Encounter Details Date Type Department Care Team Description 04/11/2012 Hospital Encounter [facility] Riccohenry Ryley Prostate cancer (H) [facility] Imaging MD Neo [address] XXX RETIRED XXX [place] [address] [address] [address] [place] [address] Social [...] tablet mouth. documented as of this encounter Plan of Treatment Upcoming Encounters Date Type Specialty Care Team Description 06/18/2022 Ancillary Procedure Cardiology Abdi Bailey MD [address] [place] [id number] (Wo rk) Pending Results Name Type Priority Associated Diagnoses Date/Ti me NM Radiopharmaceutical Imaging Routine Prostate cancer (H ) 04/11/2012 10:49 AM injection CDT documented as of this encounter Procedures Procedure Name Priority Date/Time Associated Comments Diagnosis NM RADIOPHARMACEUTICAL Routine 04/11/2012 10:49 AM Prostate ca ncer (H) INJECTION CDT documented in this encounter Visit Diagnoses Diagnosis Prostate cancer (H) Malignant neoplasm of prostate documented in this encounter Care Teams Asbestos Removal Supervisor Relationship Specialty Start Date End Date Wily Whalen MD PCP - General Internal Medicine 04/16/11 08/29/12 documented as of this encounter
--- OUTSIDE RECORDS SUMMARY | 2022-04-27 07:40 | XMS_ITS | Encounter Summary ---
:1935 Author Organization [place] Address [address] [place] [address] Care Team Providers Name Role Phone Christian Steiner MD Primary Care Provider Unavailable Christian Steiner MD Unavailable Unavailable Christian Steiner MD Unavailable Unavailable Reason for Visit Reason Onset Date Comments Refill Request 12/30/2012 atorvastatin 10 Encounter Details Date Type Department Care Team Description 12/30/2012 Refill [facility] Christian Steiner, Refill Request Smiley Franco MD (atorvastat in 10) [address] [address] Social History Tobacco Use Types Packs/Day Years Used Date Smoking Tobacco: Former Smokeless Tobacco: Never Alcohol Use Standard Drinks/Week Comments Yes 0 (1 standard drink = 0.6 oz pure alcoho l) occasionally Sex Assigned at Date Recorded Not on file documented as of this encounter Miscellaneous Notes Telephone Encounter - Yoana Murray - 12/30/2012 3:50 PM CDT Last office visit: 12/07/12 Last refill date: Unknown? Special instructions from pharmacy: no BP Readings [...] [address] [place] [id number] (Wo rk) documented as of this encounter Visit Diagnoses Diagnosis Hyperlipidemia LDL goal <100 - Primary Other and unspecified hyperlipidemia documented in this encounter Care Teams Switch House Operator Relationship Specialty Start Date End Date Christian Steiner MD PCP - General Internal Medicine 08/30/12 Christian Steiner MD PCP - Assigned PCP 08/11/1208/16/18 Chrisitan Steiner MD Assigned PCP 08/11/12 02/22/21 documented as of this encounter
--- OUTSIDE RECORDS SUMMARY | 2022-04-27 07:40 | XMS_ITS | Encounter Summary ---
:1935 Author Organization [place] Address [facility] [place] [address] Care Team Providers Name Role Phone Christian Steiner MD Primary Care Provider Unavailable Christian Steiner MD Unavailable Unavailable Christian Steiner MD Unavailable Unavailable Encounter Details Date Type Department Care Team Description 12/12/2012 Orders Only [facility] Abdirashid King MD [facility] Imaging [address] ENCOUNTER--DISREGARD [address] (Primary Dx) [place] [phone] Social History Tobacco Use Types Packs/Day Years [...] Bailey MD [address] [place] [address] (Wo rk) documented as of this encounter Visit Diagnoses Diagnosis ERRONEOUS ENCOUNTER--DISREGARD - Primary documented in this encounter Care Teams Rn Residential Relationship Specialty Start Date End Date Christian Steiner MD PCP - General Internal Medicine 08/30/12 Christian Steiner MD PCP - Assigned PCP 08/11/1208/16/18 Christian Steiner MD Assigned PCP 08/11/12 02/22/21 documented as of this encounter
[2022-04-27 09:52] LABS: Albumin* 4.4 g/dL (3.3-5.0); Chloride* 98 mmol/L (96-114); Potassium* 5.3 mmol/L (3.6-5.1); Sodium* 133 mmol/L (135-149)
[2022-04-27 09:54] LABS: Creatinine* 1.4 mg/dL (0.5-1.5); Estimated Glomerular Filt Rate 50 ml/min
[2022-04-27 09:55] LABS: Alanine Aminotransferase* 22 U/L (4-50); Alkaline Phosphatase* 116 U/L (40-150); Aspartate Amino Transferase* 29 U/L (12-35); Bilirubin Total* 0.4 mg/dL (0.1-1.5); Blood Urea Nitrogen* 36 mg/dL (7-30); Carbon Dioxide* 25 mmol/L (20-32); Glucose* 208 mg/dL (60-115); Total Protein* 6.6 g/dL (6.0-8.3)
[2022-04-27 09:56] LABS: Calcium* 9.3 mg/dL (8.4-10.6)
[2022-04-28 11:35] LABS: Cholesterol* 147 mg/dL (90-199); HDL Cholesterol* 52 mg/dL (>=40); LDL Cholesterol Calculated 80 mg/dL (<100); Triglycerides* 74 mg/dL (40-149)
== END 2022-04-27 08:51 | disposition home or self-care (01) ==
PROVIDERS: PCP Family Medicine; Visit Provider Family Medicine
DX: E78.5 Hyperlipidemia, unspecified (principal); E11.9 Type 2 diabetes mellitus without complications; I10 Essential (primary) hypertension
CPT/HCPCS: 80053; 80061

== ENCOUNTER 2022-07-17 09:51 | Outpatient (CLI) | payer MEDICARE, SELFPAY ==
[2022-07-17 12:57] LABS: Albumin* 3.9 g/dL (3.3-5.0); Chloride* 99 mmol/L (96-114); Sodium* 131 mmol/L (135-149)
[2022-07-17 12:58] LABS: Potassium* 5.2 mmol/L (3.6-5.1)
[2022-07-17 13:00] LABS: Alkaline Phosphatase* 105 U/L (40-150); Aspartate Amino Transferase* 27 U/L (12-35); Bilirubin Total* 0.6 mg/dL (0.1-1.5); Blood Urea Nitrogen* 38 mg/dL (7-30); Carbon Dioxide* 27 mmol/L (20-32); Creatinine* 1.3 mg/dL (0.5-1.5); Estimated Glomerular Filt Rate 54 ml/min; Total Protein* 6.3 g/dL (6.0-8.3)
[2022-07-17 13:01] LABS: Alanine Aminotransferase* 23 U/L (4-50); Calcium* 8.8 mg/dL (8.4-10.6); Glucose* 264 mg/dL (60-115)
== END 2022-07-17 09:52 | disposition home or self-care (01) ==
PROVIDERS: PCP Family Medicine; Visit Provider Family Medicine
DX: R10.9 Unspecified abdominal pain (principal)
CPT/HCPCS: 80053

== ENCOUNTER 2022-07-27 07:40 | Outpatient (CLI) | payer MEDICARE, SELFPAY ==
[2022-07-27 10:17] LABS: Albumin* 3.9 g/dL (3.3-5.0)
[2022-07-27 10:18] LABS: Chloride* 97 mmol/L (96-114); Sodium* 131 mmol/L (135-149)
[2022-07-27 10:20] LABS: Aspartate Amino Transferase* 23 U/L (12-35); Bilirubin Total* 0.5 mg/dL (0.1-1.5); Carbon Dioxide* 28 mmol/L (20-32); Creatinine* 1.4 mg/dL (0.5-1.5); Estimated Glomerular Filt Rate 49 ml/min
[2022-07-27 10:21] LABS: Alanine Aminotransferase* 25 U/L (4-50); Alkaline Phosphatase* 102 U/L (40-150); Blood Urea Nitrogen* 50 mg/dL (7-30); Calcium* 9.2 mg/dL (8.4-10.6); Glucose* 241 mg/dL (60-115); Total Protein* 6.3 g/dL (6.0-8.3)
[2022-07-27 11:10] LABS: Vitamin B12* 916 pg/mL (243-894)
== END 2022-07-27 07:41 | disposition home or self-care (01) ==
LOC: NFLDREF 07:40
PROVIDERS: PCP Family Medicine; Visit Provider Family Medicine
DX: E11.9 Type 2 diabetes mellitus without complications (principal); I10 Essential (primary) hypertension; Z79.899 Other long term (current) drug therapy; R63.4 Abnormal weight loss
CPT/HCPCS: 80053; 82607; 84443

== ENCOUNTER 2023-03-01 07:56 | Outpatient (CLI) | payer MEDICARE, SELFPAY | END 2023-03-01 07:57 | disposition home or self-care (01) | LOC: NFLDREF 03-03 11:39 | PROVIDERS: PCP Family Medicine; Referring Provider Family Medicine; Visit Provider Family Medicine | DX: I10 Essential (primary) hypertension (principal); E11.9 Type 2 diabetes mellitus without complications | CPT/HCPCS: 80053 ==

== ENCOUNTER 2023-08-30 07:30 | Outpatient (CLI) | payer MEDICARE, SELFPAY | END 2023-08-30 07:31 | disposition home or self-care (01) | LOC: NFLDREF 09-01 07:31 | PROVIDERS: PCP Family Medicine; Referring Provider Family Medicine; Visit Provider Family Medicine | DX: D64.9 Anemia, unspecified (principal); E55.9 Vitamin D deficiency, unspecified; E78.5 Hyperlipidemia, unspecified; I12.9 Hypertensive chronic kidney disease with stage 1 through stage 4 chronic kidney disease, or unspecified chronic kidney disease; N18.31 Chronic kidney disease, stage 3a; R53.83 Other fatigue; Z79.899 Other long term (current) drug therapy | CPT/HCPCS: 80053; 80061; 82043; 82306; 82570; 82607; 84443 ==

== ENCOUNTER 2024-02-28 07:39 | Outpatient (CLI) | payer MEDICARE, SELFPAY ==
--- OUTSIDE RECORDS SUMMARY | 2024-03-01 17:02 | XMS_ITS | Clinical Summary ---
Author Organization [facility] Address [place], [place] [address] Care Team Providers Care Human Performance Technologist Name Role Phone Ina Sheriff MD Primary Care Provider + Allergies No known active allergies Medications Medication Sig Dispensed Refills Start Date End Date Status aspirin-calcium carbonate 81 mg-300 mg calcium(777 mg) tab Take 1 Tab by mouth once a week in the morning. Active atorvastatin (LIPITOR) 40 mg tablet Take 1 tablet by mouth once daily. 03/03/2018 Active bicalutamide (CASODEX) 50 mg tablet Take 50 mg by mouth once daily. 09/27/2017 Active calcium carbonate/vitamin D3 (CALCIUM+D ORAL) Take 1 Tab by mouth once daily. Active multivitamin-folic acid 0.4 mg tablet Take 1 Tab by mouth once daily. Active cholecalciferol (VITAMIN D3) 1,000 unit capsule Take 1 Cap by mouth once daily. Active Cinnamon Bark 500 mg capsule Take 1 Cap by mouth once daily. Active glipiZIDE extended-release (GLUCOTROL XL) 5 mg Extended-Release tablet Take 1 tablet by mouth once daily before a meal. 05/24/2019 Active lisinopril (PRINIVIL; ZESTRIL) 20 mg tablet Take 1 tablet by mouth once daily. 04/24/2019 Active metFORMIN (GLUCOPHAGE) 1,000 mg tablet Take 1 tablet by mouth once daily with a meal. 02/16/2018 Active multivitamin, stress formula (STRESS FORMULA) tablet Take 1 Tab by mouth once daily. Active Coenzyme Q10 10 mg cap Take 1 Cap by mouth once daily. Active cyclobenzaprine (FLEXERIL) 10 mg tablet Bedtime as needed 03/13/2020 Active resveratrol-quercetin 100-100 mg tab Take by mouth. 0 03/18/2020 Active Active Problems No known active problems Family History Medical History Relation Name Comments Stomach cancer Father Heart Disease Mother Relation Name Status Comments Father Mother Social History Tobacco Use Types Packs/Day Years Used Date Smoking Tobacco: Former Smokeless Tobacco: Never Tobacco Cessation:Counseling Given: Yes Social Connections Answer Date Recorded Frequency of Communication with Friends and Fami ly Not on file 06/14/2021 Financial Resource Strain Answer Date R ecorded Difficulty of Paying Living Expenses Not on file 06/14/2021 Difficulty of Paying Living Expenses Not on file 06/14/2021 Sex and Gender Information Value Date Recorded Sex Assigned at Not on file Gender Identity Not on file Sexual Orientation Not on file Obstetrics History Last Filed Vital Signs Vital Sign Reading Time Taken Comments Blood Pressure 133/80 03/18/2020 11:27 AM CDT Pulse 74 03/18/2020 11:27 AM CDT Temperature 36.4 ??C (97.6 ??F) 03/18/2020 11:27 AM C DT Respiratory Rate - - Oxygen Saturation 100% 03/18/2020 11:27 AM CDT Inhaled Oxygen Concentration - - Weight 87.3 kg (192 lb 6.4 oz) 03/18/2020 11:27 AM CDT shoes on Height - - Body Mass Index - - Plan of Treatment Health Maintenance Due Date Last Done Comments Tdap 1948 Depression screening for age 12+ 1949 BMI (ht and wt on same day) for age 18+ 1955 Tetanus booster 1957 Zoster (shingles) series for age 50+ (1 of 2) 05/08/19 87 RSV vaccine for adults or pr egnancy (1 - 1-dose 60+ series) 1997 Medicare Wellness for age 65+ 2002 Pneumococcal series for age 65+ (1 of 1 - PCV) 002 COVID-19 vaccine series ( - 2022-24 season) 4 Influenza for age 65+ 02/13/2024 Care Teams Human Performance Technologist Relationship Specialty Start Date End Date Ina Sheriff MD [address] [place] [address] PCP - General Family Practice 03/18/20
--- OUTSIDE RECORDS SUMMARY | 2024-03-01 17:03 | XMS_ITS | Encounter Summary ---
Author Organization [place] Address [address] [place] [address] Care Team Providers Care Litharge Mill Operator Name Role Phone Christian Steiner MD Primary Care Provider Unavail able Christian Steiner MD Unavailable Unavailable Christian Steiner MD Unavailable Unavailable Humberto Good MD Unavailable [phone] Ke Hernandes MD Unavailable [phone] Ina Sheriff MD Primary Care Provider + Herson Licea MD Unavailable [phone] Ke Hernandes MD Unavailable [phone] Debbie Titus PA-C Unavailable [phone] Noemy De León APRN LEAD TECHNICIAN Unavailable [phone] Reason for Visit * Reason Comments Medication Refill lisinopril (PRINIVIL /ZESTRIL) 10 MG tablet Encounter Details Date Type Department Care Team (Late st Contact Info) Description 08/03/[address] [address] Christian Steiner MD Medication Refill (lisinopril (PRINIVIL/ZESTRIL) 10 MG tablet) Social History Tobacco Use Types Packs/Day Years Used Date Smoking Tobacco: Former Cigarettes Q uit: 02/29/1980 Smokeless Tobacco: Never Alcohol Use Standard Drinks/Week Comments Yes 0 (1 standard drink = 0.6 oz pur e alcohol) occasionally Sex and Gender Information Value Date Recorded Sex Assigned at Not on file Gender Identity Not on file Sexual Orientation Not on file documented as of this encounter Miscellaneous Notes * Telephone Encounter - Bita Sigala RN - 08/03/2017 4:41 PM CST Call to patient who states that he is taking 20 mg of lisinopril daily. GER MUSIC * Telephone Encounter - Christian Steiner MD - 08/03/2017 4:33 PM CST Is he taking 10 or 20 mg of lisinopril now? Please ask the patient. GER MUSIC * Telephone Encounter - Helena Ramos RN - 08/03/2017 4:02 PM MANAGER MUSIC Routing refill request to provider for review/approval because: Medication is reported/historical - lisinopril was d/c'd on 04/21/17 with reason: alternate therapy.What is the alternate therapy? GER MUSIC * Telephone Encounter - Karen Phipps - 08/03/2017 3:32 PM CST Requested Prescriptions Pending Prescriptions Disp Refills ??? lisinopril (PRINIVIL/ZESTRIL) 20 MG tablet [Pharmacy Med Name: LISINOPRIL 20MG TABLETS] Historical Last Written Prescription Date: 10/26/2016 Last Fill Quantity: na, # refills: na Last Office Visit 04/21/2017 with [facility], [facility] or [facility] prescribing provider: Future Office Visit: [...] Labs Lab Test 04/21/17 1644 POTASSIUM 4.4 GER MUSIC documented in this encounter Plan of Treatment Upcoming Encounters Date Type Department Care Team (Late st Contact Info) Description 05/24/2024 Ancillary Procedure [facility] Heart Care [address] [facility] [address] [place] [phone] Tonya Sneed MD [address] [place] [phone] documented as of this encounter Visit Diagnoses Diagnosis Essential hypertension with goal blood pressure less than 140/90 documented in this encounter Care Teams Litharge Mill Operator Relationship Specialty Start Date End Date Christian Steiner MD PCP - General Internal Medicine 08/30/12 01/29/21 Christian Steiner MD PCP - Assigned PCP 08/11/12 08/16/[address] [facility] [address] [place] [address] PCP - General Family Medicine 01/30/21 Christian Steiner MD Assigned PCP 08/11/12 02/22/21 Humberto Good MD [address] [place] [address] Assigned Surgical Provider 04/05/20 02/01/21 Ke Hernandes MD [address] [place] [address] Assigned Heart and Vascular Provider 04/28/20 10/11/21 Herson Licea MD [address] [place] [id number] Assigned Surgical Provider 02/02/21 Ke Hernandes MD [address] [place] [address] Assigned Heart and Vascular Provider 12/13/21 02/26/23 Debbie Titus PA-C [address] [place], [place] [phone] Physician Administrative Project Coordinator Cardiovascular Disease 01/07/23 Noemy De León APRN LEAD TECHNICIAN [address] [place], [place] [address] Assigned Heart and Vascular Provider 08/06/23 documented as of this encounter
--- OUTSIDE RECORDS SUMMARY | 2024-03-01 17:03 | XMS_ITS | Encounter Summary ---
Author Organization [place] Address [address] [place] [address] Care Team Providers Care Railroad Dispatcher Name Role Phone Christian Steiner MD Primary Care Provider Unavail able Christian Steiner MD Unavailable Unavailable Christian Steiner MD Unavailable Unavailable Humberto Good MD Unavailable [phone] Ke Hernandes MD Unavailable Ina Sheriff MD Primary Care Provider + Herson Licea MD Unavailable [phone] Ke Hernandes MD Unavailable [phone] Debbie Titus PA-C Unavailable [phone] Noemy De León APRN ORDER CALLER Unavailable [phone] Reason for Visit * Reason Comments Medication Refill METFORMIN 1000MG TAB LETS, glipiZIDE (GLUCOTROL) 5 MG Encounter Details Date Type Department Care Team (Late st Contact Info) Description 01/25/[address] [address] Christian Steiner MD Medication Refill (METFORMIN 1000MG TABLETS, glipiZIDE (GLUCOTROL) 5 MG) Social History Tobacco Use Types Packs/Day Years [...] encounter Miscellaneous Notes * Telephone Encounter - Ethel Olson RN - 01/27/2018 12:50 PM CDT Medication is being filled for 1 time refill only due to: Patient needs to be seen because for a diabetes check, needs to be seen every 6 months . * Telephone Encounter - Sofía Gore CMA - 01/26/2018 9:36 AM CDT Requested Prescriptions [...] st Contact Info) Description 05/24/2024 Ancillary Procedure [facility] Heart Care [address] [facility] [address] [place] [phone] Tonya Sneed MD [address] [place] [address] documented as of this encounter Visit Diagnoses Diagnosis Type 2 diabetes mellitus without complication, without long-term current use of insulin (H) documented in this encounter Care Teams Railroad Dispatcher Relationship Specialty Start Date End Date Christian Steiner MD PCP - General Internal Medicine 08/30/12 01/29/21 Christian Steiner MD PCP - Assigned PCP 08/11/12 08/16/18 Ina Sheriff MD [facility] [address] [place] [address] PCP - General Family Medicine 01/30/21 Christian Steiner MD Assigned PCP 08/11/12 02/22/21 Humberto Good MD [address] [place] [address] Assigned Surgical Provider 04/05/20 02/01/21 Ke Hernandes MD [address] [place] [address] Assigned Heart and Vascular Provider 04/28/20 10/11/21 Herson Licea MD [address] [place] [address] Assigned Surgical Provider 02/02/21 Ke Hernandes MD [address] [place] [phone] Assigned Heart and Vascular Provider 12/13/21 02/26/23 Debbie Titus PA-C [address] [place] [id number] Physician Thaw Shed Heater Tender Cardiovascular Disease 01/07/23 Noemy De León APRN [facility] [address] [place] [phone] Assigned Heart and Vascular Provider 08/06/23 documented as of this encounter
--- OUTSIDE RECORDS SUMMARY | 2024-03-01 17:03 | XMS_ITS | Encounter Summary ---
Author Organization [facility] Address [address] [place] [address] Care Team Providers Care Health Unit Clerk Name Role Phone Christian Steiner MD Primary Care Provider Unavail able Christian Steiner MD Unavailable Unavailable Christian Steiner MD Unavailable Unavailable Humberto Good MD Unavailable [phone] Ke Hernandes MD Unavailable [phone] Ina Sheriff MD Primary Care Provider + Herson Licea MD Unavailable [phone] Ke Hernandes MD Unavailable [phone] Debbie Titus PA-C Unavailable [phone] Noemy De León APRN WINDOW INSTALLER Unavailable [phone] Reason for Visit * Reason Comments Medication Refill metFORMIN (GLUCOPHAG E) 1000 MG tablet Encounter Details Date Type Department Care Team (Late st Contact Info) Description 10/11/[address] [phone] Christian Steiner MD Medication Refill (metFORMIN (GLUCOPHAGE) 1000 MG tablet) Social History Tobacco Use Types [...] encounter Miscellaneous Notes * Telephone Encounter - Aishwarya Nash RN - 10/12/2017 7:46 AM CDT Prescription approved per [facility] Refill Protocol. * Telephone Encounter - Livier Alvarado CMA - [...] st Contact Info) Description 05/24/[address] [facility] [address] [facility] [address] [place] [phone] Tonya Sneed MD [address] [place] [address] documented as of this encounter Visit Diagnoses Diagnosis Type 2 diabetes mellitus without complication, without long-term current use of insulin (H) documented in this encounter Care Teams Health Unit Clerk Relationship Specialty Start Date End Date Christian Steiner MD PCP - General Internal Medicine 08/30/12 01/29/21 Christian Steiner MD PCP - Assigned PCP 08/11/12 08/16/18 Ina Sheriff MD [facility] [address] [place] [address] PCP - General Family Medicine 01/30/21 Christian Steiner MD Assigned PCP 08/11/12 02/22/21 Humberto Good MD [address] [place] [address] Assigned Surgical Provider 04/05/20 02/01/21 Ke Hernandes MD [address] [address] [place] [address] Assigned Heart and Vascular Provider 04/28/20 10/11/21 Herson Licea MD [address] [place] [address] Assigned Surgical Provider 02/02/21 Ke Hernandes MD [address] [place] [address] Assigned Heart and Vascular Provider 12/13/21 02/26/23 Debbie Titus PA-C [address] [place] [id number] Physician Body And Fender Mechanic Apprentice Cardiovascular Disease 01/07/23 Noemy De León APRN WINDOW INSTALLER [address] [place], [place] [address] Assigned Heart and Vascular Provider 08/06/23 documented as of this encounter
--- OUTSIDE RECORDS SUMMARY | 2024-03-01 17:03 | XMS_ITS | Encounter Summary ---
Author Organization [place] Address [address] [place] [address] Care Team Providers Care Foundry Worker Name Role Phone Christian Steiner MD Primary Care Provider Unavail able Christian Steiner MD Unavailable Unavailable Christian Steiner MD Unavailable Unavailable Humberto Good MD Unavailable [phone] Ke Hernandes MD Unavailable [phone] Ina Sheriff MD Primary Care Provider + Herson Licea MD Unavailable [phone] Ke Hernandes MD Unavailable [phone] Debbie Titus PA-C Unavailable [phone] Noemy De León APRN SOLAR ELECTRIC/PHOTOVOLTAIC INSTALLER Unavailable [phone] Reason for Visit * Reason Comments Medication Refill duplicate Encounter Details Date Type Department Care Team (Late st Contact Info) Description 01/27/[address] [phone] Christian Steiner MD Medication Refill (duplicate) Social History Tobacco Use Types Packs/Day Years [...] encounter Miscellaneous Notes * Telephone Encounter - Maisha Barone DO - 01/28/2018 11:42 AM CDT Only 30 days provided. Needs to be seen with labs for more refills. * Telephone Encounter - Bita Sigala RN - 01/28/2018 11:16 AM CDT Routing refill request to provider for review/approval because: Labs not current: Related to medication. * Telephone Encounter - Livier Alvarado CMA [...] Info) Description 05/24/[address] [facility] [address] [facility] [address] [place] [phone] Tonya Sneed MD [address] [place] [address] [place] [id number] documented as of this encounter Visit Diagnoses Diagnosis Type 2 diabetes mellitus without complication, without long-term current use of insulin (H) documented in this encounter Care Teams Foundry Worker Relationship Specialty Start Date End Date Christian Steiner MD PCP - General Internal Medicine 08/30/12 01/29/21 Christian Steiner MD PCP - Assigned PCP 08/11/12 08/16/18 Ina Sheriff MD [facility] [address] [place] [address] PCP - General Family Medicine 01/30/21 Christian Steiner MD Assigned PCP 08/11/12 02/22/21 Humberto Good MD [address] [place] [address] [place] [address] Assigned Surgical Provider 04/05/20 02/01/21 Ke Hernandes MD [address] [address] [place] [address] Assigned Heart and Vascular Provider 04/28/20 10/11/21 Herson Licea MD [address] [facility], [place] [id number] Assigned Surgical Provider 02/02/21 Ke Hernandes MD [address] [address] [place] [address] Assigned Heart and Vascular Provider 12/13/21 02/26/23 Debbie Titus PA-C [address] [place], [place] [address] Physician Marble Polisher Hand Cardiovascular Disease 01/07/23 Noemy De León APRN SOLAR ELECTRIC/PHOTOVOLTAIC INSTALLER [address] [address] [place], [place] [address] Assigned Heart and Vascular Provider 08/06/23 documented as of this encounter
--- OUTSIDE RECORDS SUMMARY | 2024-03-01 17:03 | XMS_ITS | Encounter Summary ---
Author Organization [place] Address [address] [place] [address] Care Team Providers Care Regional Sales Trainer Name Role Phone Christian Steiner MD Primary Care Provider Unavail able Christian Steiner MD Unavailable Unavailable Christian Steiner MD Unavailable Unavailable Humberto Good MD Unavailable [phone] Ke Hernandes MD Unavailable [phone] Ina Sheriff MD Primary Care Provider + Herson Licea MD Unavailable [phone] Ke Hernandes MD Unavailable [phone] Debbie Titus PA-C Unavailable [phone] Noemy De León APRN LAY OUT CARPENTER Unavailable [phone] Reason for Visit * Reason Comments Medication Refill LISINOPRIL 20MG TABL ETS Encounter Details Date Type Department Care Team (Late st Contact Info) Description 08/02/[address] [phone] Christian Steiner MD Medication Refill (LISINOPRIL 20MG TABLETS) Social History Tobacco Use Types Packs/Day Years Used Date Smoking Tobacco: Former Cigarettes Q uit: 02/29/1980 Smokeless Tobacco: Never Alcohol Use Standard Drinks/Week Comments Yes 0 (1 standard drink = 0.6 oz pur e alcohol) occasionally PHQ-2 Answer Date Recorded PHQ-2 Score 0 06/29/2018 Sex and Gender Information Value Date Recorded Sex Assigned at Not on file Gender Identity Not on file Sexual Orientation Not on file documented as of this encounter Miscellaneous Notes * Telephone Encounter - Ethel Olson RN - 08/03/2018 2:11 PM EDI PROGRAMMER ANALYST Prescription approved per [facility] Refill Protocol for 12 months of refills since last appointment, which was 02/16/18 PROGRAMMER ANALYST * Telephone Encounter - Carmen Monet CMA - 08/02/2018 11:53 AM EDI PROGRAMMER ANALYST LISINOPRIL 20MG TABLETS Last Written Prescription Date: [...] Labs Lab Test 02/16/18 0909 POTASSIUM 4.4 PROGRAMMER ANALYST documented in this encounter Plan of Treatment Upcoming Encounters Date Type Department Care Team (Late st Contact Info) Description 05/24/2024 Ancillary Procedure [facility] Heart Care [address] [facility] [address] [place] [phone] Tonya Sneed MD [address] [place] [address] [place] [address] documented as of this encounter Visit Diagnoses Diagnosis Essential hypertension with goal blood pressure less than 140/90 documented in this encounter Care Teams Regional Sales Trainer Relationship Specialty Start Date End Date Christian Steiner MD PCP - General Internal Medicine 08/30/12 01/29/21 Christian Steiner MD PCP - Assigned PCP 08/11/12 08/16/18 Ina Sheriff MD [facility] [address] [place] [address] PCP - General Family Medicine 01/30/21 Christian Steiner MD Assigned PCP 08/11/12 02/22/21 Humberto Good MD [address] [place] [address] [place] [address] Assigned Surgical Provider 04/05/20 02/01/21 Ke Henrandes MD [address] [place] [address] [place] [address] Assigned Heart and Vascular Provider 04/28/20 10/11/21 Herson Licea MD [address] [place] [id number] Assigned Surgical Provider 02/02/21 Ke Hernandes MD [address] [place] [address] Assigned Heart and Vascular Provider 12/13/21 02/26/23 Debbie Titus PA-C [address] [place] [id number] Physician Revenue Audit Clerk Cardiovascular Disease 01/07/23 Noemy De León APRN [facility] [address] [place] [address] Assigned Heart and Vascular Provider 08/06/23 documented as of this encounter
--- OUTSIDE RECORDS SUMMARY | 2024-03-01 17:03 | XMS_ITS | Encounter Summary ---
Author Organization [facility] Address [address] [place] [address]. [place] [address] Care Team Providers Care Cd Reactor Operator Head Name Role Phone Ina Sheriff MD Primary Care Provider + Herson Licea MD Unavailable [phone] Ke Hernandes MD Unavailable [phone] Debbie Titus PA-C Unavailable [phone] Noemy De León APRN TRAVEL JOURNALIST Unavailable [phone] Reason for Visit * Reason Onset Date Comments Call to schedule test 03/13/2022 Encounter Details Date Type Department Care Team (Late st Contact Info) Description 03/13/2022 Telephone [facility] [address] [place] [phone] Ke Hernandes MD [address] [facility] [address] [place] [address] Call to schedule test Social History Tobacco Use Types Packs/Day Years Used Date Smoking Tobacco: Former Cigarettes Q uit: 02/29/1980 Smokeless Tobacco: Never Alcohol Use Standard Drinks/Week Comments Yes 0 (1 standard drink = 0.6 oz pur e alcohol) occasionally PHQ-2 Answer Date Recorded PHQ-2 Score 0 01/30/2021 Sex and Gender Information Value Date Recorded Sex Assigned at Not on file Gender Identity Not on file Sexual Orientation Not on file COVID-19 Exposure Response Date Recorded In the last 10 days, have yo u been in contact with someone who was confirmed or suspected to have Coronavirus/COVID-19? No / Unsure 02/25/2022 1:23 PM CDT documented as of this encounter Miscellaneous Notes * Telephone Encounter - Flora Marshall - 03/13/2022 4:15 PM CDT [facility] Call Center Phone Message May a detailed message be left on voicemail: yes Reason for Call: Other: Please call the patient to schedule NM Lexiscan Stress test in BV Action Taken: Other: Cardiology Travel Screening: Not Applicable documented in this encounter Plan of Treatment Upcoming Encounters Date Type Department Care Team (Late st Contact Info) Description 05/24/2024 Ancillary Procedure [facility] Heart Care [address] [facility] [address] [place] [phone] Tonya Sneed MD [address] [facility] [address] [place] [id number] documented as of this encounter Visit Diagnoses Not on filedocumented in this encounter Care Teams Cd Reactor Operator Head Relationship Specialty Start Date End Date Ina Sheriff MD [facility] [address] [place] [address] PCP - General Family Medicine 01/30/21 Herson Licea MD [address] [place] [address] Assigned Surgical Provider 02/02/21 Ke Hernandes MD [address] [place] [address] [place] [id number] Assigned Heart and Vascular Provider 12/13/21 02/26/23 Debbie Titus PA-C [address] [place] [address] Physician Fugitive Detective Cardiovascular Disease 01/07/23 Noemy De León APRN [facility] [address] [place] [address] Assigned Heart and Vascular Provider 08/06/23 documented as of this encounter
--- OUTSIDE RECORDS SUMMARY | 2024-03-01 17:03 | XMS_ITS | Clinical Summary ---
Author Organization [facility] Address [address] [place] [address] Care Team Providers Care Retail Sales Clerk Name Role Phone Ina Sheriff MD Primary Care Provider + Herson Licea MD Unavailable [phone] Debbie Titus PA-C Unavailable [phone] Noemy De León APRN ENGINEERING ANALYST Unavailable [phone] Allergies No known active allergies Medications Medication Sig Dispensed Refills Start Date End Date Status aspirin 81 MG tablet Take 1 tablet by mouth daily Active Multiple Vitamin (DAILY MULTIVITAMIN PO) Take 1 tablet by mouth daily Active Co-Enzyme Q-10 10 MG CAPS Take 1 capsule by mouth daily Dose of capsule unknown. Active Cholecalciferol (VITAMIN D) 1000 UNITS capsule Take 2,000 Units by mouth daily Active vitamin B complex with vitamin C (STRESS TAB) tablet Take 1 tablet by mouth daily. Active cinnamon 500 MG CAPS Take 1 capsule by mouth daily Active metFORMIN (GLUCOPHAGE) 1000 MG tabletIndications:Typ e 2 diabetes mellitus without complication, without long-term current use of insulin (H) TAKE 1 TABLET BY MOUTH TWICE DAILY 180 tablet 3 02/16/2018 Active atorvastatin (LIPITOR) 40 MG tabletIndications:Hyp erlipidemia LDL goal <100 TAKE 1 TABLET BY MOUTH DAILY 90 tablet 3 03/03/2018 Active lisinopril (PRINIVIL/ZESTRIL) 20 MG tabletIndications:Ess ential hypertension with goal blood pressure less than 140/90 TAKE 1 TABLET BY MOUTH DAILY 90 tablet 1 08/03/2018 Active blood glucose (ACCU-CHEK FRANCISCO PLUS) test stripIndications:Type 2 diabetes mellitus without complication, without long-term current use of insulin (H) USE TO TEST EVERY DAY DIRECTED 100 strip 1 12/05/2018 Active glipiZIDE (GLUCOTROL XL) 10 MG 24 hr tablet TK 1 T PO D 03/04/2020 Active gabapentin (NEURONTIN) 300 MG capsule Take 300 mg by mouth daily 02/20/2023 Active Active Problems Problem Noted Date Diagnosed Date Type 2 diabetes mellitus wit hout complication, without long-term current use of insulin 04/21/2017 Benign paroxysmal positional vertigo, unspecified laterality 04/21/2017 Third degree heart block 07/12/2016 Overview: Complete heart block, status post dual-chamber pacemaker on 07/13/2016. ?? History of colonic polyps 03/17/2016 H/O tobacco use, presenting hazards to health Overview: Quit 1979. In 03/25, CT abd shows no AAA Hypertension goal BP (blood pressure) < 140/90 0 02/28/2013 Overview: Add lisinopril 02/24 Hyperlipidemia LDL goal <100 09/07/2012 Overview: incr to atorva 40 in 01/26 Preventive measure 09/07/2012 Overview: Colonoscopy 04/24; a 10 mm polyp;tubular adenoma; negative in March 2016. No follow-up needed based on age. Type 2 diabetes mellitus without complication Overview: DX approx 2003 per pt Malignant neoplasm of prostate Overview: Prostate cancer; radioactive seeds ; Dr. Mckee;PSA 8.6 in 04/25; casodex in 2012. Stable in 11/26 and in 02/27 ; < 0.04 in 08/28; Dr Good and in 02/28 and in 08/29 and in 08/30 Encounters Date Type Department Care Team Description 02/16/2024 Ancillary Procedure [facility] [address] [facility] [address] [place] [phone] Tonya Sneed MD Cardiac pacemaker in situ; Atrioventricular block, complete (H) from Last 3 Months Immunizations Name Administration Dates Next Due Influenza (H1N1) 06/03/2009 Influenza (High Dose) Trival ent,PF (Fluzone) 02/16/2018,04/02/2017,03/17/2016,03/2202/16/2019 Influenza (IIV3) PF 02/25/2010,04/09/2005 Pneumo Conj 13-V (2010&after) 01/30/2015 Pneumococcal 23 valent 02/16/2018 TD,PF 7+ (Tenivac) 02/18/2006 Zoster vaccine, live 03/10/2012 Family History Medical History Relation Comments Cancer Brother Diabetes Son 1 type 2 DM age 50 Relation Status Comments Brother Daughter Alive Father Mother Son 1 Alive Son 2 Alive Social History Tobacco Use Types Packs/Day Years Used Date Smoking Tobacco: Former Cigarettes Q uit: 02/29/1980 Smokeless Tobacco: Never Tobacco Cessation:Counseling Given: Not Answered Alcohol Use Standard Drinks/Week Comments Yes 0 (1 standard drink = 0.6 oz pur e alcohol) occasionally PHQ-2 Answer Date Recorded PHQ-2 Score 0 01/30/2021 Adolescent Education Answer Date Record ed Getting School Help Needed Not on file 03/08 Sex and Gender Information Value Date Recorded Sex Assigned at Not on file Gender Identity Not on file Sexual Orientation Not on file Last Filed Vital Signs Vital Sign Reading Time Taken Comments Blood Pressure 132/82 07/29/2023 1:36 PM EMERGENCY MAN Pulse 92 07/29/2023 1:29 PM EMERGENCY MAN Temperature 36.6 ??C (97.9 ??F) 02/16/2018 8:36 AM CD T Respiratory Rate 14 02/16/2018 8:36 AM CDT Oxygen Saturation 99% 07/29/2023 1:25 PM EMERGENCY MAN Inhaled Oxygen Concentration - - Weight 84.8 kg (186 lb 14.4 oz) 07/29/2023 1:25 PM EMERGENCY MAN Height 182.9 cm (6') 07/29/2023 1:25 PM EMERGENCY MAN Body Mass Index 25.35 07/29/2023 1:25 PM EMERGENCY MAN Plan of Treatment Upcoming Encounters Date Type Department Care Team (Late st Contact Info) Description 05/24/2024 Ancillary Procedure [facility] [address] [place] [address] [place] [phone] Tonya Sneed MD [address] [place] [address] Health Maintenance Due Date Last Done Comments ADVANCE CARE PLANNING 1935 ANNUAL REVIEW OF HM ORDERS 1935 RSV VACCINE (1 - 1-dose 75+ series) 2012 LIPID 05/14/2018 05/14/2017, 0 02/2016, 03/21/2014, Additional history exists DIABETIC FOOT EXAM 02/16/2019 02/16/2018, 0 02/16/2018, 03/17/2016, Additional history exists FALL RISK ASSESSMENT 02/16/2019 02/16/2018, 07/21/2016, 07/23/2015, Additional history exists MEDICARE ANNUAL WELLNESS VISIT 02/16/2019 02/16/2018 MICROALBUMIN 02/16/2019 02/16/2018, 0 01/2017, 07/23/2015, Additional history exists EYE EXAM 03/08/2021 03/08/2020, 07/16, 08/07/2019, Additional history exists PHQ-2 (once per calendar year) 2023 01/30/2021, 11/21/2019, 09/07/2018, Additional history exists A1C 08/30/2023 03/01/2023, 0 10/2017, 04/21/2017, Additional history exists COVID-19 Vaccine (2022- season) 2024 03/18/2023, 04/28/2022, 11/11/2021, Additional history exists INFLUENZA VACCINE (#1) 2024 , 04/08/2022, 03/24/2021, Additional history exists BMP 03/01/2024 03/01/2023, 0 10/2017, 04/21/2017, Additional history exists DTAP/TDAP/TD IMMUNIZATION (2 - Td or Tdap) 05/23/2030 05/23/2020, 02/18/2006 Pneumococcal Vaccine: 65+ Years Completed 02/16/2018, 01/30/2015, 03/10/2010 ZOSTER IMMUNIZATION Completed 05/23/2020, 02/27/2020, 03/10/2012, Additional history exists HPV IMMUNIZATION Aged Out No longer e ligible based on patient's age to complete this topic MENINGITIS IMMUNIZATION Aged Out No l onger eligible based on patient's age to complete this topic RSV MONOCLONAL ANTIBODY Aged Out No l onger eligible based on patient's age to complete this topic Medical Devices Implanted Type Area Cooker Meal Device Identifier Shelf Expiration Date Model / Serial / Lot Medtronic I* 5076 Capsurefix Novus Mri Surescan [id number] Implanted:06/16 (Quantity not on file) Leads [employer] 5076 CAPSUREFIX NOVUS MRI SURESCAN / [id number] / Medtronic I* 5076 Capsurefix Novus Mri Surescan [id number] Implanted:06/16 (Quantity not on file) Leads [employer] 5076 CAPSUREFIX NOVUS MRI SURESCAN / [id number] / Medtronic I* [id number] Advis[address] Gamboa [id number] Implanted:06/16 (Quantity not on file) Pacemaker [employer] [id number] ADVI SA DR GAMBOA / [id number] / Procedures Procedure Name Priority Date/Time Associated Diagnosis Comments INTERROGATION DEVICE EVAL REMOTE PACER UP TO 90 DAYS Routine 02/16/2024 11:53 AM CDT Cardiac pacemaker in situ Atrioventricular block, complete (H) BASIC METABOLIC PANEL Routine 03/01/2023 7:56 AM CDT HEMOGLOBIN A1C Routine 03/01/2023 7:56 AM CDT EYE EXAM - HIM SCAN 03/08/2020 1 2:00 AM CDT ALBUMIN RANDOM URINE QUANTITATIVE Routine 02/16/2018 9:08 AM CDT Type 2 diabetes mellitus without complication, without long-term current use of insulin (H) LIPID REFLEX TO DIRECT LDL PANEL Routine 05/14/2017 8:07 AM EMERGENCY MAN Hyperlipidemia LDL goal <100 C FOOT EXAM Routine 07/23/2015 9:22 AM EMERGENCY MAN Screening for diabetic peripheral neuropathy from Last 3 Months or Most Recently Relevant to Health Maintenance Results * INTERROGATION DEVICE EVAL REMOTE PACER UP TO 90 DAYS (02/16/2024 11:53 AM CDT) Date Time Interrogation Session [id number] [employer] Implantable Pulse Generator Cooker Meal Medtronic [employer] Implantable Pulse Generator Model A2DR[address] Advis[address] MRI [employer] Implantable Pulse Generator Serial Number [id number] [employer] Type Interrogation Session Remote [employer] Clinic Name Nirav [employer] Implantable Pulse Generator Type Pacemaker [employer] Implantable Pulse Generator Implant Date 20160713 [employer] Implantable Lead Cooker Meal Medtronic [employer] Implantable Lead Model 5076 CapSureFix Novus MRI SureScan [employer] Implantable Lead Serial Number [id number] [employer] Implantable Lead Implant Date 20160713 [employer] Implantable Lead Polarity Type Bipolar Lead [employer] Implantable Lead Location Detail 1 UNKNOWN [employer] Implantable Lead Location Right Atrium [employer] Implantable Lead Connection Status Connected [employer] Implantable Lead Cooker Meal Medtronic [employer] Implantable Lead Model 5076 CapSureFix Novus MRI SureScan [employer] Implantable Lead Serial Number [id number] [employer] Implantable Lead Implant Date 20160713 [employer] Implantable Lead Polarity Type Bipolar Lead [employer] Implantable Lead Location Detail 1 UNKNOWN [employer] Implantable Lead Location Right Ventricle [employer] Implantable Lead Connection Status Connected [employer] [place] Setting Mode (NBG Code) DDD [employer] [place] Setting Lower Rate Limit 60 {beats}/ min [employer] [place] Setting Maximum Tracking Rate 130 {beats}/ min [employer] [place] Setting Maximum Sensor Rate 130 {beats}/ min [employer] [place] Setting Hysterisis Rate DISABLED [employer] [place] Setting ABY Delay Low 150 ms [employer] [place] Setting PAV Delay Low 180 ms [employer] [place] Setting AT Mode Switch Rate 171 {beats}/ min [employer] Lead Channel Setting Sensing Polarity Bipolar [employer] Lead Channel Setting Sensing Anode Location Right Atrium [employer] Lead Channel Setting Sensing Anode Terminal Ring [employer] Lead Channel Setting Sensing Cathode Location Right Atrium [employer] Lead Channel Setting Sensing Cathode Terminal Tip [employer] Lead Channel Setting Sensing Sensitivity 0.3 mV [employer] Lead Channel Setting Sensing Polarity Bipolar [employer] Lead Channel Setting Sensing Anode Location Right Ventricle [employer] Lead Channel Setting Sensing Anode Terminal Ring [employer] Lead Channel Setting Sensing Cathode Location Right Ventricle [employer] Lead Channel Setting Sensing Cathode Terminal Tip [employer] Lead Channel Setting Sensing Sensitivity 0.9 mV [employer] Lead Channel Setting Pacing Polarity Bipolar [employer] Lead Channel Setting Pacing Anode Location Right Atrium [employer] Lead Channel Setting Pacing Anode Terminal Ring [employer] Lead Channel Setting Sensing Cathode Location Right Atrium [employer] Lead Channel Setting Sensing Cathode Terminal Tip [employer] Lead Channel Setting Pacing Pulse Width 0.4 ms [employer] Lead Channel Setting Pacing Amplitude 1.5 V [employer] Lead Channel Setting Pacing Capture Mode Adaptive [employer] Lead Channel Setting Pacing Polarity Bipolar [employer] Lead Channel Setting Pacing Anode Location Right Ventricle [employer] Lead Channel Setting Pacing Anode Terminal Ring [employer] Lead Channel Setting Sensing Cathode Location Right Ventricle [employer] Lead Channel Setting Sensing Cathode Terminal Tip [employer] Lead Channel Setting Pacing Pulse Width 0.4 ms [employer] Lead Channel Setting Pacing Amplitude 2.5 V [employer] Lead Channel Setting Pacing Capture Mode Adaptive [employer] Zone Setting Type Category VF [employer] Zone Setting Vendor Type Category V High Rate [employer] Zone Setting Type Category VT [employer] Zone Setting Vendor Type Category FastVT [employer] Zone Setting Type Category VT [employer] Zone Setting Vendor Type Category VT [employer] Zone Setting Type Category VT [employer] Zone Setting Vendor Type Category MonVT [employer] Zone Setting Status Monitor [employer] Zone Setting Detection Interval 400 ms [employer] Zone Setting Type Category ATRIAL_FIBRILLATI ON [employer] Zone Setting Vendor Type Category FastATAF [employer] Zone Setting Type Category AT/AF [employer] Zone Setting Status Monitor [employer] Zone Setting Detection Interval 350 ms [employer] Lead Channel Impedance Value 380 ohm [employer] Lead Channel Impedance Value 361 ohm [employer] Lead Channel Sensing Intrinsic Amplitude 1.875 mV [employer] Lead Channel Sensing Intrinsic Amplitude 1.875 mV [employer] Lead Channel Pacing Threshold Amplitude 0.5 V [employer] Lead Channel Pacing Threshold Pulse Width 0.4 ms [employer] Lead Channel Impedance Value 456 ohm [employer] Lead Channel Impedance Value 399 ohm [employer] Lead Channel Sensing Intrinsic Amplitude 10.25 mV [employer] Lead Channel Sensing Intrinsic Amplitude 10.25 mV [employer] Lead Channel Pacing Threshold Amplitude 0.625 V [employer] Lead Channel Pacing Threshold Pulse Width 0.4 ms [employer] Battery Date Time of Measurements [id number] [employer] Battery Status OK [employer] Battery KILN WORKER Trigger 2.83 [employer] Battery Remaining Longevity 26 mo [employer] Battery Voltage 2.93 V [employer] Irving Statistic Date Time Start [id number] [employer] Irving Statistic Date Time End [id number] [employer] Irving Statistic RA Percent Paced 31.77 % [employer] Irving Statistic RV Percent Paced 99.77 % [employer] Irving Statistic AP VP SOFTWARE ENGINEERING Percent 31.86 % [employer] Irving Statistic VP SOFTWARE ENGINEERING Percent 68.09 % [employer] Irving Statistic AP VS Percent 0 % [employer] Irving Statistic VS Percent 0.04 % [employer] Atrial Tachy Statistic Date Time Start [id number] [employer] Atrial Tachy Statistic Date Time End [id number] [employer] Atrial Tachy Statistic AT/AF [place] Percent 0 % [employer] Therapy Statistic Recent Date Time Start [id number] [employer] Therapy Statistic Recent Date Time End [id number] [employer] Therapy Statistic Total Date Time Start [id number] [employer] Therapy Statistic Total Date Time End [id number] [employer] Episode Statistic Recent Count 0 [employer] Episode Statistic Type Category AT/AF [employer] Episode Statistic Recent Count 0 [employer] Episode Statistic Type Category SVT [employer]TR[employer] Episode Statistic Recent Count 0 [employer]TR[employer]IC Episode Statistic Type Category VT [employer]TR[employer] Episode Statistic Recent Count 0 [employer]TR[employer]IC Episode Statistic Type Category VT [employer] Episode Statistic Recent Date Time Start [id number] [employer] Episode Statistic Recent Date Time End [id number] [employer] Episode Statistic Recent Date Time Start [id number] [employer] Episode Statistic Recent Date Time End [id number] [employer] Episode Statistic Recent Date Time Start [id number] [employer] Episode Statistic Recent Date Time End [id number] [employer] Episode Statistic Recent Date Time Start [id number] [employer] Episode Statistic Recent Date Time End [id number] [employer] Episode Statistic Total Count 2 [employer] Episode Statistic Type Category AT/AF [employer] Episode Statistic Total Count 0 [employer]IC Episode Statistic Type Category SVT [employer]TR[employer] Episode Statistic Total Count 4 [employer]IC Episode Statistic Type Category VT [employer]TR[employer]IC Episode Statistic Total Count 0 MEDTRONIC Episode Statistic Type Category VT [employer] Episode Statistic Total Date Time Start [id number] [employer] Episode Statistic Total Date Time End [id number] [employer] Episode Statistic Total Date Time Start [id number] [employer] Episode Statistic Total Date Time End [id number] [employer] Episode Statistic Total Date Time Start [id number] [employer] Episode Statistic Total Date Time End [id number] [employer] Episode Statistic Total Date Time Start [id number] [employer] Episode Statistic Total Date Time End [id number] [employer] Anatomical Region Laterality Modality Other 02/16/2024 11:3 3 AM CDT Narrative 02/16/2024 2:48 PM CDT Medtronic Advisa (D) Remote PPM Device Check AP: 32% VP SOFTWARE ENGINEERING: 100% Mode: DDD 60/130 Presenting Rhythm: /VP SOFTWARE ENGINEERING Heart Rate: adequate heart rates per histogram Sensing: stable Pacing Threshold: stable Impedance: stable Battery Status: 2 years (1.5-2.5 years) Atrial Arrhythmia: 1 brief mode switch episode, no EGM for review. Ventricular Arrhythmia: none Care Plan: F/u [facility] ppm q 3 months. Pt due to see cardiology 07/2024. Results sent via letter. NANCY Haddad I have reviewed and interpreted the device interrogation, settings, programming and nurse's summary. The device is functioning within normal device parameters. I agree with the current findings, assessment and plan. Tonya Sneed MD [facility] ORDERABLES * (ABNORMAL) Hemoglobin A1c (03/01/2023 7:56 AM CDT) Hemoglobin A1C (External) 7.8(H) 0 - 5.6 % NON-INTERFACED (ONBASE SCANS) Blood BLOOD SPECIMEN / Unknown 03/01/2023 7:56 AM CDT Narrative ERICKA PFT - 04/23/2023 9:17 AM EMERGENCY MAN Verified by Danica Britt on 04/23/2023. Ina Sheriff MD LAB - BLOOD [facility] Organization Address City/State/ZIP Co de Phone Number ERICKA PFT NON-INTERFACED (ONBASE SCANS) * (ABNORMAL) Basic metabolic panel (03/01/2023 7:56 AM CDT) Sodium (External) 133(L) 135 - 149 mmol/L NON-INTERFACED (ONBASE SCANS) Potassium (External) 5.2(H) 3.6 - 5.1 mmol/L NON-INTERFACED (ONBASE SCANS) Chloride (External) 100 96 - 114 mmol/L NON-INTERFACED (ONBASE SCANS) CO2 (External) 26 20 - 32 mmol/L NON-INTERFACED (ONBASE SCANS) Anion Gap (External) 7 7 - 15 mEq/L NON-INTERFACED (ONBASE SCANS) Urea Nitrogen (External) 31(H) 7 - 30 mg/dL NON-INTERFACED (ONBASE SCANS) Creatinine (External) 1.2 0.5 - 1.5 mg/dL NON-INTERFACED (ONBASE SCANS) GFR Estimated (External) 59 ml/min NON-INTERFACED (ONBASE SCANS) Calcium (External) 9.8 8.4 - 10.6 mg/dL NON-INTERFACED (ONBASE SCANS) Glucose (External) 190(H) 60 - 115 mg/dL NON-INTERFACED (ONBASE SCANS) Blood BLOOD SPECIMEN / Unknown 03/01/2023 7:56 AM CDT Narrative ERICKA PFT - 04/23/2023 9:17 AM EMERGENCY MAN Verified by Danica Britt on 04/23/2023. Ina Sheriff MD LAB - BLOOD [place] ERICKA PFT NON-INTERFACED (ONBASE SCANS) * EYE EXAM - HIM SCAN (03/08/2020 12:00 AM CDT) RETINOPATHY NEGATIVE 03/08/2020 Chen Pickett - 03/08/2020 12:00 AM CDT DIABETIC EYE EXAM [facility] Provider Outside OTHER * Albumin Random Urine Quantitative with Creat Ratio (02/16/2018 9:08 AM CDT) Creatinine Urine 95 mg/dL 02/16/2018 5:39 PM CDT [facility] Albumin Urine mg/L 5 mg/L 02/16/2018 5:39 PM CDT [facility] Albumin Urine mg/g Cr 5.36 0 - 17 mg/g Cr 02/16/2018 5:39 PM CDT [facility] Urine specimen (specimen) 02/16/2018 9:08 AM CDT 02/16/2018 9:13 AM CDT Christian Steiner MD LAB - URINE ORDERABL ES Performing Organization Address City/[facility]/ZIP Co de Phone Number [facility] [address] [place] [address] * Lipid panel reflex to direct LDL Fasting (05/14/2017 8:07 AM EMERGENCY MAN) Cholesterol 151 <200 mg/dL 05/14/2017 4:46 PM EMERGENCY MAN [facility] Triglycerides 66 <150 mg/dL 05/14/2017 5:00 PM EMERGENCY MAN [facility] Comment:Fasting specimen HDL Cholesterol 55 >39 mg/dL 7 5:00 PM EMERGENCY MAN [facility] LDL Cholesterol Calculated 83 <100 mg/dL 05/14/2017 5:00 PM EMERGENCY MAN [facility] Comment:Desirable: <100 mg/d l Non HDL Cholesterol 96 <130 mg/dL 05/14/2017 5:00 PM EMERGENCY MAN [facility] Blood specimen (specimen) 05/14/2017 8:07 AM EMERGENCY MAN 05/14/2017 8:12 AM EMERGENCY MAN Christian Steiner MD LAB - BLOOD ORDERABL ES Performing Organization Address [facility] Co de Phone Number [facility] [address] [place] [address] from Last 3 Months or Most Recently Relevant to Health Maintenance Advance Directives For more information, please contact: [phone] * Full Code (Latest Code Status on File) Date Activated Date Inactivated Comments 07/14/2016 2:57 PM * Full Code Date Activated Date Inactivated Comments 07/12/2016 1:12 PM 07/14/2016 2:57 PM Care Teams Retail Sales Clerk Relationship Specialty Start Date End Date Ina Sheriff MD [facility] & [address] [address] PCP - General Family Medicine 01/30/21 Herson Licea MD [address] [place] [address] Assigned Surgical Provider 02/02/21 Debbie Titus PA-C [address] [place] [address] Physician Principal Clerk Cardiovascular Disease 01/07/23 Noemy De León APRN ENGINEERING ANALYST [address] [place] [id number] Assigned Heart and Vascular Provider 08/06/23
--- OUTSIDE RECORDS SUMMARY | 2024-03-01 17:03 | XMS_ITS | Encounter Summary ---
Author Organization [place] Address [facility]. [address] Care Team Providers Care Water Registrar Name Role Phone Ina Sheriff MD Primary Care Provider + Herson Licea MD Unavailable [phone] Debbie TitusC Unavailable Noemy De León APRN EXPLORATION DRILLER Unavailable [phone] Reason for Visit * CV Testing (Routine) - Closed Specialty Diagnoses / Procedures Referred By Contac t Referred To Contact Diagnoses Cardiac pacemaker in situ Atrioventricular block, complete (H) Procedures Cardiac Device Check - Remote Tonya Sneed MD [address] [place] [address] Referral ID Status Reason Start Date Expiration Date Visits Re quested Visits Authorized [id number] Closed 01/07/2023 01/07/2024 100 100 Encounter Details Date Type Department Care Team (Late st Contact Info) Description 02/16/2024 Ancillary Procedure [facility] [address] [facility] [place] [phone] Tonya Sneed MD [address] [place] [id number] Cardiac pacemaker in situ; Atrioventricular block, complete (H) Social History Tobacco Use Types Packs/Day Years [...] st Contact Info) Description 05/24/2024 Ancillary Procedure [facility] [address] [place] [phone] Tonya Sneed MD [address] [place] [address] documented as of this encounter Procedures Procedure Name Priority Date/Time Associated Diagnosis Comments INTERROGATION DEVICE EVAL REMOTE PACER UP TO 90 DAYS Routine 02/16/2024 11:53 AM CDT Cardiac pacemaker in situ Atrioventricular block, complete (H) documented in this encounter Results * INTERROGATION DEVICE EVAL REMOTE PACER UP TO 90 DAYS (02/16/2024 11:53 AM CDT) Date Time Interrogation Session [id number] [employer] Implantable Pulse Generator Facialist Medtronic [employer]IC Implantable Pulse Generator Model A2DR01 Pam SPRAGUE [employer] Implantable Pulse Generator Serial Number [id number] [employer] Type Interrogation Session Remote [facility] Clinic Name [facility] [employer] Implantable Pulse Generator Type Pacemaker [employer]IC Implantable Pulse Generator Implant Date 20160713 MEDTR[employer]IC Implantable Lead Facialist Medtronic MEDTRONIC Implantable Lead Model 5076 CapSureFix Novus MRI SureScan [employer]IC Implantable Lead Serial Number [id number] [employer]IC Implantable Lead Implant Date 20160713 MEDTR[employer]IC Implantable Lead Polarity Type Bipolar Lead [employer]IC Implantable Lead Location Detail 1 UNKNOWN MEDTR[employer]IC Implantable Lead Location Right [facility] [employer] Implantable Lead Connection Status Connected [employer]IC Implantable Lead Facialist Medtronic MEDTRONIC Implantable Lead Model 5076 CapSureFix Novus MRI SureScan [employer] Implantable Lead Serial Number [id number] [employer]IC Implantable Lead Implant Date 20160713 MEDTRONIC [...] ms MEDTRONIC Battery Date Time of Measurements [id number] [employer] Battery Status OK [employer] Battery BENCH SCIENTIST Trigger 2.83 [employer]IC Battery Remaining Longevity 26 mo [employer]IC Battery Voltage 2.93 V [employer]IC Irving Statistic Date Time Start [id number] [employer] Irving Statistic Date Time End [id number] [employer] Irving Statistic RA Percent Paced 31.77 % [employer] Irving Statistic RV Percent Paced 99.77 % [employer] Irving Statistic AP SENIOR STORAGE ADMINISTRATOR Percent 31.86 % [employer] Irving Statistic SENIOR STORAGE ADMINISTRATOR Percent 68.09 % [employer] Irving Statistic AP VS Percent 0 % [employer] Irving Statistic VS Percent 0.04 % [employer] Atrial Tachy Statistic Date Time Start [id number] [employer] Atrial Tachy Statistic Date Time End [id number] [employer] Atrial Tachy Statistic AT/AF [place] Percent 0 % [employer] Therapy Statistic Recent Date Time Start [id number] [employer] Therapy Statistic Recent Date Time End 10391181426391 [employer] Therapy Statistic Total Date Time Start 91593097243080 [employer] Therapy Statistic Total Date Time End [id number] [employer]IC Episode Statistic Recent Count 0 MEDTRONIC Episode Statistic Type Category AT/AF [employer]TR[employer]IC Episode Statistic Recent Count 0 [employer]TR[employer]IC Episode Statistic Type Category SVT MEDTRONIC Episode Statistic Recent Count 0 MEDTRONIC Episode Statistic Type Category VT MEDTRONIC Episode Statistic Recent Count 0 MEDTRONIC Episode Statistic Type Category VT MEDTRONIC Episode Statistic Recent Date Time Start [id number] [employer]IC Episode Statistic Recent Date Time End [id number] [employer]TR[employer]IC Episode Statistic Recent Date Time Start [id number] [employer]IC Episode Statistic Recent Date Time End MEDTRONIC Episode Statistic Recent Date Time Start [id number] [employer]IC Episode Statistic Recent Date Time End 02580796930388 [employer] Episode Statistic Recent Date Time Start 99844286537218 [employer]IC Episode Statistic Recent Date Time End [id number] [employer]IC Episode Statistic Total Count 2 [employer]IC Episode Statistic Type Category AT/AF [employer]IC Episode Statistic Total Count 0 [employer]IC Episode Statistic Type Category SVT MEDTRONIC Episode Statistic Total Count 4 MEDTRONIC Episode Statistic Type Category VT MEDTRONIC Episode Statistic Total Count 0 MEDTRONIC Episode Statistic Type Category VT MEDTRONIC Episode Statistic Total Date Time Start [id number] MEDTRONIC Episode Statistic Total Date Time End 71978510641453 [employer]IC Episode Statistic Total Date Time Start MEDTRONIC Episode Statistic Total Date Time End 16293636869834 [employer]IC Episode Statistic Total Date Time Start 07526963869350 [employer]IC Episode Statistic Total Date Time End 14653370948408 [employer]IC Episode Statistic Total Date Time Start 53536879782149 [employer]IC Episode Statistic Total Date Time End 97775335736018 [employer]IC Anatomical Region Laterality Modality Other 02/16/2024 11:3 3 AM CDT Narrative 02/16/2024 2:48 PM CDT Medtronic Advisa (D) Remote PPM Device Check AP: 32% SENIOR STORAGE ADMINISTRATOR: 100% Mode: DDD 60/130 Presenting Rhythm: /SENIOR STORAGE ADMINISTRATOR Heart Rate: adequate heart rates per histogram [...] Tonya Sneed MD [facility] ORDERABLES documented in this encounter Visit Diagnoses Diagnosis Cardiac pacemaker in situ Atrioventricular block, complete (H) Atrioventricular block, complete documented in this encounter Care Teams Water Registrar Relationship Specialty Start Date End Date Ina Sheriff MD [facility] [address] [place] [address] PCP - General Family Medicine 01/30/21 Herson Licea MD [address] [place] [address] [id number] Assigned Surgical Provider 02/02/21 Debbie Titus PA-C [address] [place] [address]34[address] Physician Assembly Cleaner Cardiovascular Disease 01/07/23 Noemy De León APRN EXPLORATION DRILLER [address] [place] [address]180[address] Assigned Heart and Vascular Provider 08/06/23 documented as of this encounter
--- OUTSIDE RECORDS SUMMARY | 2024-03-01 17:03 | XMS_ITS | Referral Summary ---
Author Organization [place] Address [address] [place] [address] Care Team Providers Care Grooming Salon Manager Name Role Phone Ina Sheriff MD Primary Care Provider + Herson Licea MD Unavailable [phone] Debbie Titus PA-C Unavailable [phone] Noemy De León APRN SCHOOL BUS DRIVER/CUSTODIAN Unavailable [phone] Encounters Date Type Department Care Team Description 02/16/[address] [facility] [address] [place] [address] Tonya Sneed MD Cardiac pacemaker in situ; Atrioventricular block, complete (H) from Last 3 Months Allergies No known active allergies Medications Medication [...] diabetes mellitus without complication Overview: DX approx 2002 per pt Malignant neoplasm of prostate Overview: Prostate cancer; radioactive seeds ; Dr. Mckee;PSA 8.6 in 04/25; casodex in 2012. Stable in 6/15 and in 02/27 ; < 0.04 in 08/28; Dr Good and in 02/28 and in 08/29 and in 08/30 Immunizations Name Administration Dates Next Due Influenza (H1N1) 06/03/2009 Influenza (High Dose) Trival ent,PF (Fluzone) 02/16/2018,04/02/2017,03/17/2016,03/2202/16/2019 Influenza (IIV3) PF 02/25/2010,04/09/2005 Pneumo Conj 13-V (2010&after) 01/30/2015 Pneumococcal 23 valent 02/16/2018 TD,PF 7+ (Tenivac) 02/18/2006 Zoster vaccine, live 03/10/2012 Social History Tobacco Use Types Packs/Day Years [...] Comments Blood Pressure 132/82 07/29/2023 1:36 PM [facility] [employer] Pulse 92 07/29/2023 1:29 PM [employer] [employer] Temperature 36.6 ??C (97.9 ??F) 02/16/2018 8:36 AM CD T Respiratory Rate 14 02/16/2018 8:36 AM CDT Oxygen Saturation 99% 07/29/2023 1:25 PM [employer] [employer] Inhaled Oxygen Concentration - - Weight 84.8 kg (186 lb 14.4 oz) 07/29/2023 1:25 PM [employer] Height 182.9 cm (6') 07/29/2023 1:25 PM [employer] Body Mass Index 25.35 07/29/2023 1:25 PM [employer] Plan of Treatment Upcoming Encounters Date Type Department Care Team (Late st Contact Info) Description 05/24/[address] [facility] [address] [place] [address] Tonya Sneed MD [address] [place] [address] Medical Devices Implanted Type Area Policy Director Device Identifier Shelf Expiration Date Model / Serial / Lot Medtronic I* 5076 Capsurefix Novus Mri Surescan [id number] Implanted:06/16 (Quantity not on file) Leads [employer] 5076 CAPSUREFIX NOVUS MRI SURESCAN / [id number] / Medtronic I* 5076 Capsurefix Novus Mri Surescan [id number] Implanted:06/16 (Quantity not on file) Leads [employer] 5076 CAPSUREFIX NOVUS MRI SURESCAN / [id number] / Medtronic I* A2dr01 Advisa Dr Gamboa [id number] Implanted:06/16 (Quantity not on file) Pacemaker [employer] INC A2DR01 ADVI SA DR GAMBOA / [id number] / Procedures Procedure Name Priority Date/Time Associated [...] DIRECT LDL PANEL Routine 05/14/2017 8:07 AM [facility] [employer] Hyperlipidemia LDL goal <100 C FOOT EXAM Routine 07/23/2015 9:22 AM [employer] [employer] Screening for diabetic peripheral neuropathy from Last 3 Months or Most Recently Relevant to Health Maintenance Results * INTERROGATION DEVICE EVAL REMOTE PACER UP TO 90 DAYS (02/16/2024 11:53 AM CDT) Date Time Interrogation Session [id number] [employer] Implantable Pulse Generator Policy Director Medtronic [employer]IC Implantable Pulse Generator Model A2DR01 Advisa [address] MRI MEDTRONIC Implantable Pulse Generator Serial Number [id number] MEDTRONIC Type Interrogation Session Remote [facility] Name [facility] [employer]IC Implantable Pulse Generator Type Pacemaker [employer]ONIC Implantable Pulse Generator Implant Date 20160713 MEDTR[employer]IC Implantable Lead Policy Director Medtronic MEDTRONIC Implantable Lead Model 5076 CapSureFix Novus MRI SureScan [employer]IC Implantable Lead Serial Number [id number] [employer]TRONIC Implantable Lead Implant Date 20160713 MED[employer]IC Implantable Lead Polarity Type Bipolar Lead [employer]IC Implantable Lead Location Detail 1 UNKNOWN MEDTRONIC Implantable Lead Location Right [facility] [employer] Implantable Lead Connection Status Connected [employer]IC Implantable Lead Policy Director Medtronic [employer]IC Implantable Lead Model 5076 CapSureFix Novus MRI SureScan [employer]IC Implantable Lead Serial Number [id number] [employer]IC Implantable Lead Implant Date 20160713 MEDTRONIC [...] ms MEDTRONIC Battery Date Time of Measurements [id number] [employer]IC Battery Status OK [employer]TR[employer]IC Battery SALES STOCK ASSOCIATE Trigger 2.83 [employer] Battery Remaining Longevity 26 mo [employer] Battery Voltage 2.93 V [employer]IC Irving Statistic Date Time Start 22251020915978 [employer] Irving Statistic Date Time End 72174368610065 [employer] Irving Statistic RA Percent Paced 31.77 % [employer] Irving Statistic RV Percent Paced 99.77 % [employer] Irving Statistic AP MACHINE CEMENTER AND FOLDER Percent 31.86 % [employer] Irving Statistic MACHINE CEMENTER AND FOLDER Percent 68.09 % [employer] Irving Statistic AP VS Percent 0 % [employer] Irving Statistic VS Percent 0.04 % [employer] Atrial Tachy Statistic Date Time Start 84601194242804 [employer] Atrial Tachy Statistic Date Time End 11714898060889 [employer] Atrial Tachy Statistic AT/AF [place] Percent 0 % [employer] Therapy Statistic Recent Date Time Start 18590621562692 [employer] Therapy Statistic Recent Date Time End 23363817951366 [employer]IC Therapy Statistic Total Date Time Start 86297507851822 [employer] Therapy Statistic Total Date Time End 39980640751095 MEDTRONIC Episode Statistic Recent Count 0 MEDTRONIC Episode Statistic Type Category AT/AF MEDTRONIC Episode Statistic Recent Count 0 MEDTRONIC Episode Statistic Type Category SVT MEDTRONIC Episode Statistic Recent Count 0 MEDTRONIC Episode Statistic Type Category VT MEDTRONIC Episode Statistic Recent Count 0 MEDTRONIC Episode Statistic Type Category VT MEDTRONIC Episode Statistic Recent Date Time Start [id number] MEDTRONIC Episode Statistic Recent Date Time End 35496003218878 [employer]TRONIC Episode Statistic Recent Date Time Start 20754433513850 [employer]ONIC Episode Statistic Recent Date Time End [id number] [employer]TRONIC Episode Statistic Recent Date Time Start [id number] [employer]TRONIC Episode Statistic Recent Date Time End 22463429166535 [employer]TRONIC Episode Statistic Recent Date Time Start 72221633887065 MEDTRONIC Episode Statistic Recent Date Time End 76757144982557 MEDTRONIC Episode Statistic Total Count 2 MEDTRONIC Episode Statistic Type Category AT/AF MEDTRONIC Episode Statistic Total Count 0 MEDTRONIC Episode Statistic Type Category SVT MEDTRONIC Episode Statistic Total Count 4 MEDTRONIC Episode Statistic Type Category VT MEDTRONIC Episode Statistic Total Count 0 MEDTRONIC Episode Statistic Type Category VT MEDTRONIC Episode Statistic Total Date Time Start [id number] MEDTRONIC Episode Statistic Total Date Time End 92521609994991 MEDTRONIC Episode Statistic Total Date Time Start 85402979501839 MEDTRONIC Episode Statistic Total Date Time End 75463400649619 MEDTRONIC Episode Statistic Total Date Time Start 88054070844251 MEDTRONIC Episode Statistic Total Date Time End 25922586822477 MEDTRONIC Episode Statistic Total Date Time Start 96829698802518 [employer]ONIC Episode Statistic Total Date Time End 05055448854261 [employer] Anatomical Region Laterality Modality Other 02/16/2024 11:3 3 AM CDT Narrative 02/16/2024 2:48 PM CDT Medtronic Advisa (D) Remote PPM Device Check AP: 32% MACHINE CEMENTER AND FOLDER: 100% Mode: DDD 60/130 Presenting Rhythm: /MACHINE CEMENTER AND FOLDER Heart Rate: adequate heart rates per histogram Sensing: stable Pacing Threshold: stable Impedance: stable Battery Status: 2 years (1.5-2.5 years) Atrial Arrhythmia: 1 brief mode switch episode, no EGM for review. Ventricular Arrhythmia: none Care Plan: F/u carelink ppm q 3 months. Pt due to see cardiology 07/2024. Results sent via letter. CIRILO HaddadT I have reviewed and interpreted the device [...] Narrative ERICKA PFT - 04/23/2023 9:17 AM [facility] [employer] Verified by Danica Britt on 04/23/2023. Ina Sheriff MD LAB - BLOOD [facility] Organization Address City/State/ZIP Co de Phone Number ERICKA T NON-INTERFACED (ONBASE SCANS) * (ABNORMAL) Basic metabolic [...] / Unknown 03/01/2023 7:56 AM CDT Narrative BREEZE PFT - 04/23/2023 9:17 AM [facility] [employer] Verified by Danica Britt on 04/23/2023. Ina Sheriff MD LAB - BLOOD OR[place]ida RENE Performing Organization Address [facility]/ZIP Co de Phone Number BREEZE PFT NON-INTERFACED (ONBASE SCANS) * EYE EXAM - HIM SCAN (03/08/2020 12:00 AM CDT) RETINOPATHY NEGATIVE 03/08/2020 Narrative Chen Pelaez - 03/08/2020 12:00 AM CDT DIABETIC EYE EXAM [facility] Provider Outside OTHER * Albumin Random Urine Quantitative with Creat Ratio (02/16/2018 9:08 AM CDT) Creatinine Urine 95 mg/dL 02/16/2018 5:39 PM CDT [facility] Albumin Urine mg/L 5 mg/L 02/16/2018 5:39 PM CDT [facility] Albumin Urine mg/g Cr 5.36 0 - 17 mg/g Cr 02/16/2018 5:39 PM CDT [facility] Urine specimen (specimen) 02/16/2018 9:08 AM CDT 02/16/2018 9:13 AM CDT Christian Steiner MD LAB - URINE ORDERABL ES Performing Organization Address [facility] Co de Phone Number [facility] [address] [place] [address] * Lipid panel reflex to direct LDL Fasting (05/14/2017 8:07 AM [facility] [employer]) Cholesterol 151 <200 mg/dL 05/14/2017 4:46 PM [facility] [employer] [facility] Triglycerides 66 <150 mg/dL 05/14/2017 5:00 PM [facility] [employer] [facility] Comment:Fasting specimen HDL Cholesterol 55 >39 mg/dL 7 5:00 PM [facility] [employer] [facility] LDL Cholesterol Calculated 83 <100 mg/dL 05/14/2017 5:00 PM [facility] [employer] [facility] Comment:Desirable: <100 mg/d l Non HDL Cholesterol 96 <130 mg/dL 05/14/2017 5:00 PM [facility] [employer] [facility] Blood specimen (specimen) 05/14/2017 8:07 AM [facility] [employer] 05/14/2017 8:12 AM [facility] [employer] Christian Steiner MD LAB - BLOOD ORDERABL ES Performing Organization Address [facility] Co de Phone Number [facility] [address] [place] [address] from Last 3 Months or Most Recently Relevant to Health Maintenance Advance Directives For more information, please contact: [phone] * Full Code (Latest Code Status on File) Date Activated Date Inactivated Comments 07/14/2016 2:57 PM * Full Code Date Activated Date Inactivated Comments 07/12/2016 1:12 PM 07/14/2016 2:57 PM Care Teams Grooming Salon Manager Relationship Specialty Start Date End Date Ina Sheriff MD [facility] [address] [address] PCP - General Family Medicine 01/30/21 Herson Licea MD [address] [place] [id number] Assigned Surgical Provider 02/02/21 Debbie Titus PA-C [address] [place] [address] Physician Community Resource Consultant Cardiovascular Disease 01/07/23 Noemy De León APRN SCHOOL BUS DRIVER/CUSTODIAN [address] [place] [address] Assigned Heart and Vascular Provider 08/06/23
--- OUTSIDE RECORDS SUMMARY | 2024-03-01 17:03 | XMS_ITS | Encounter Summary ---
Author Organization [place] Address [address] [place] [address] Care Team Providers Care Auto Slip Cover Installer Name Role Phone Christian Steiner MD Primary Care Provider Unavail able Christian Steiner MD Unavailable Unavailable Christian Steiner MD Unavailable Unavailable Humberto Good MD Unavailable [phone] Ke Hernandes MD Unavailable [phone] Ina Sheriff MD Primary Care Provider + Herson Licea MD Unavailable [phone] Ke Hernandes MD Unavailable [phone] Debbie Titus PA-C Unavailable [phone] Noemy De León APRN BOLTER HELPER Unavailable [phone] Reason for Visit * Reason Comments Medication Refill Encounter Details Date Type Department Care Team (Late st Contact Info) Description 06/16/[address] [phone] Christian Steiner MD Medication Refill Social History Tobacco Use Types Packs/Day Years [...] Ethel Olson RN - 06/18/2017 2:27 PM MOVIE SHOT CAMER[place]AN Prescription approved per [facility] Refill Protocol for 12 months of refills since last appointment, which was 04/21/17 E SHOT CAMERAMAN * Telephone Encounter - Esthela Henry - 06/18/2017 1:14 PM CST Patient is calling to check on the status of refill. Patient is out of medications. Needs sent today E SHOT CAMERAMAN documented in this encounter Plan of Treatment Upcoming Encounters Date Type Department Care Team (Late st Contact Info) Description 05/24/2024 Ancillary Procedure [facility] [address] [place] [phone] Tonya Sneed MD [address] [place] [address] documented as of this encounter Visit Diagnoses Diagnosis Hyperlipidemia LDL goal <100 Other and unspecified hyperlipidemia documented in this encounter Care Teams Auto Slip Cover Installer Relationship Specialty Start Date End Date Christian Steiner MD PCP - General Internal Medicine 08/30/12 01/29/21 Christian Steiner MD PCP - Assigned PCP 08/11/12 08/16/18 Ina Sheriff MD [facility] [address] [place] [address] PCP - General Family Medicine 01/30/21 Christian Steiner MD Assigned PCP 08/11/12 02/22/21 Humberto Good MD [address] [place] [address] Assigned Surgical Provider 04/05/20 02/01/21 Ke Hernandes MD [address] [place] [id number] Assigned Heart and Vascular Provider 04/28/20 10/11/21 Herson Licea MD [address] [place] [address] [id number] Assigned Surgical Provider 02/02/21 Ke Hernandes MD [address] [place] [id number] Assigned Heart and Vascular Provider 12/13/21 02/26/23 Debbie Titus PA-C [address] [place] [address] Physician Teacher Tutor Cardiovascular Disease 01/07/23 Noemy De León APRN BOLTER HELPER [address] [place], [place] [address] Assigned Heart and Vascular Provider 08/06/23 documented as of this encounter
--- OUTSIDE RECORDS SUMMARY | 2024-03-01 17:03 | XMS_ITS | Encounter Summary ---
Author Organization [facility] Address [address] [place] [address]. [place] [address] Care Team Providers Care Broadcast Systems Engineer Name Role Phone Christian Steiner MD Primary Care Provider Unavail able Crhistian Steiner MD Unavailable Unavailable Humberto Good MD Unavailable Ke Hernandes MD Unavailable Ina Sheriff MD Primary Care Provider + Herson Licea MD Unavailable Ke Hernandes MD Unavailable Debbie Titus PA-C Unavailable [phone] Noemy De León APRN DRY PRESS OPERATOR HELPER Unavailable Reason for Visit * Reason Onset Date Comments other 11/13/2020 provider recomme ndations Encounter Details Date Type Department Care Team (Late st Contact Info) Description 11/13/2020 Telephone [facility] [place] [address] [place] [address] Humberto Good MD [address] [place] [address] other (provider recommendations) Social History Tobacco Use Types Packs/Day Years Used Date Smoking Tobacco: Former Cigarettes Q uit: 02/29/1980 Smokeless Tobacco: Never Alcohol Use Standard Drinks/Week Comments Yes 0 (1 standard drink = 0.6 oz pur e alcohol) occasionally PHQ-2 Answer Date Recorded PHQ-2 Score 0 11/21/2019 Sex and Gender Information Value Date Recorded Sex Assigned at Not on file Gender Identity Not on file Sexual Orientation Not on file documented as of this encounter Miscellaneous Notes * Telephone Encounter - Fareed Jauregui CMA - 11/13/2020 11:11 AM CDT I FORWARDED HIM TO THE SCHEDULERS. PT WANTS BV DOC. I SUGGESTED SANJAY CAUSEY OR NGUYEN. Ryan Jauregui CMA * Telephone Encounter - Shani Keating - 11/13/2020 [...] st Contact Info) Description 05/24/2024 Ancillary Procedure [facility] [address] [facility] [address] [place] [phone] Tonya Sneed MD [address] [facility] [address] [place] [address] documented as of this encounter Visit Diagnoses Not on filedocumented in this encounter Care Teams Broadcast Systems Engineer Relationship Specialty Start Date End Date Christian Steiner MD PCP - General Internal Medicine 08/30/12 01/29/21 Ina Sheriff MD [facility] [address] [place] [address] PCP - General Family Medicine 01/30/21 Christian Steiner MD Assigned PCP 08/11/12 02/22/21 Humberto Good MD [address] [place] [address] Assigned Surgical Provider 04/05/20 02/01/21 Ke Hernandes MD [address] [place] [address] Assigned Heart and Vascular Provider 04/28/20 10/11/21 Herson Licea MD [address] [place] [id number] Assigned Surgical Provider 02/02/21 Ke Hernandes MD [address] [place] [address] Assigned Heart and Vascular Provider 12/13/21 02/26/23 Debbie Titus PA-C [address] [place] [address] Physician Water Softener Installer Cardiovascular Disease 01/07/23 Noemy De León APRN DRY PRESS OPERATOR HELPER [address] [place], [place] [address] Assigned Heart and Vascular Provider 08/06/23 documented as of this encounter
--- OUTSIDE RECORDS SUMMARY | 2024-03-01 17:03 | XMS_ITS | Encounter Summary ---
Author Organization [facility] Address [address] [place] [address]. [place] [address] Care Team Providers Care Golf Professional Name Role Phone Ina Sheriff MD Primary Care Provider + Herson Licea MD Unavailable [phone] Debbie Titus PA-C Unavailable [phone] Noemy De León APRN UNIVERSAL GRINDER TOOL Unavailable [phone] Encounter Details Date Type Department Care Team (Late st Contact Info) Description 03/01/2023 External Order Results [facility] [address] [place] [address] Outside, Provider Social History Tobacco Use Types Packs/Day Years [...] st Contact Info) Description 05/24/2024 Ancillary Procedure [facility] [address] [facility] [address] [place] [phone] Tonya Sneed MD [address] [facility] [address] [place] [address] documented as of this encounter Procedures Procedure Name Priority Date/Time Associated Diagnosis Comments HEPATIC FUNCTION PANEL Routine 03/01/2023 7:56 AM CDT HEMOGLOBIN A1C Routine 03/01/2023 7:56 AM CDT BASIC METABOLIC PANEL Routine 03/01/2023 7:56 AM CDT documented in this encounter Results * (ABNORMAL) Basic metabolic panel (03/01/2023 7:56 [...] Narrative ERICKA PFT - 04/23/2023 9:17 AM DIRECT CARE WORKER Verified by Danica Britt on 04/23/2023. Ina Sheriff MD LAB - BLOOD ARMANDO RENE [facility] Organization Address City/State/ZIP Co de Phone Number ERICKA PFRaquel NON-INTERFACED (ONBASE SCANS) * Hepatic function panel (03/01/2023 7:56 AM CDT) Protein Total (External) 6.8 6.0 - 8.3 g/dL NON-INTERFACED (ONBASE SCANS) Albumin (External) 4.3 3.3 - 5.0 g/dL NON-INTERFACED (ONBASE SCANS) Bilirubin Total (External) 0.6 0.1 - 1.5 mg/dL NON-INTERFACED (ONBASE SCANS) AST (External) 32 12 - 35 U/L NON-INTERFACED (ONBASE SCANS) ALT (External) 23 4 - 50 U/L NON- INTERFACED (ONBASE SCANS) Alk Phosphatase (External) 83 40 - 150 U/L NON-INTERFACED (ONBASE SCANS) Blood BLOOD SPECIMEN / Unknown 03/01/2023 7:56 AM CDT Narrative BREEZE PFT - 04/23/2023 9:17 AM DIRECT CARE WORKER Verified by Danica Britt on 04/23/2023. Ina Sheriff MD LAB - BLOOD ARMANDO RENE [facility] NON-INTERFACED (ONBASE SCANS) * (ABNORMAL) Hemoglobin A1c (03/01/2023 7:56 AM CDT) Hemoglobin A1C (External) 7.8(H) 0 - 5.6 % NON-INTERFACED (ONBASE SCANS) Blood BLOOD SPECIMEN / Unknown 03/01/2023 7:56 AM CDT Narrative BREEZE PFT - 04/23/2023 9:17 AM DIRECT CARE WORKER Verified by Danica Britt on 04/23/2023. Ina Sheriff MD LAB - BLOOD ARMANDO RENE [facility] NON-INTERFACED (ONBASE SCANS) documented in this encounter Visit Diagnoses Not on filedocumented in this encounter Care Teams Golf Professional Relationship Specialty Start Date End Date Ina Sheriff MD [address] [address] PCP - General Family Medicine 01/30/21 Herson Lieca MD [address] [place] [address] Assigned Surgical Provider 02/02/21 Debbie Titus PA-C [address] [place] [id number] Physician Automotive Hardware Engineer Cardiovascular Disease 01/07/23 Noemy De León APRN UNIVERSAL GRINDER TOOL [address] [place] [address] Assigned Heart and Vascular Provider 08/06/23 documented as of this encounter
--- OUTSIDE RECORDS SUMMARY | 2024-03-01 17:03 | XMS_ITS | Encounter Summary ---
Author Organization [facility] Address [address] [place] [address] Care Team Providers Care Anesthesia Associate Name Role Phone Christian Steiner MD Primary Care Provider Unavail able Christian Steiner MD Unavailable Unavailable Christian Steiner MD Unavailable Unavailable Humberto Good MD Unavailable [phone] Ke Hernandes MD Unavailable [phone] Ina Sheriff MD Primary Care Provider + Herson Licea MD Unavailable [phone] Ke Hernandes MD Unavailable [phone] Debbie Titus PA-C Unavailable [phone] Noemy De León APRN LOCK INSTALLER Unavailable [phone] Reason for Visit * Reason Comments Medication Refill ACCU-CHEK FRANCISCO PLUS STRIPS 100'S Encounter Details Date Type Department Care Team (Late st Contact Info) Description 07/16/[address] [phone] Christian Steiner MD Medication Refill (ACCU-CHEK FRANCISCO PLUS STRIPS 100'S) Social History Tobacco Use Types Packs/Day Years [...] Ethel Olson RN - 07/17/2016 3:53 PM PEARL STRINGER Pres[place] [facility] [place] Protocol. Patient tests once daily as directed L STRINGER * Telephone Encounter - Sofía Gore CMA - 07/17/2016 11:52 AM PEARL STRINGER ACCU-CHEK FRANCISCO PLUS STRIPS 100'S Last Written Prescription Date: 05/30/15 Last Fill Quantity: 100, # refills: 1 Last Office Visit [place] [facility] [facility] or [facility] prescribing provider: 03/17/16 Next 5 appointments (look out 90 days) Jul 21, 2016 1:45 PM Office Visit with [facility] [address] [address] L STRINGER documented in this encounter Plan of Treatment Upcoming Encounters Date Type Department Care Team (Late st Contact Info) Description 05/24/2024 Ancillary Procedure [facility] [address] [facility] [address] [place] [phone] [place] [address] [place] [address] [address] [place] [address] documented as of this encounter Visit Diagnoses Diagnosis Type 2 diabetes mellitus (H)- Primary Type II or unspecified type diabetes mellitus without mention of complication, not stated as uncontrolled documented in this encounter Care Teams Anesthesia Associate Relationship Specialty Start Date End Date Christian Steiner MD PCP - General Internal Medicine 08/30/12 01/29/21 Christian Steiner MD PCP - Assigned PCP 08/11/12 08/16/18 Ina Sheriff MD [facility] & [address] [address] PCP - General Family Medicine 01/30/21 Christian Steiner MD Assigned PCP 08/11/12 02/22/21 Humberto Good MD [address] [place] [address] Assigned Surgical Provider 04/05/20 02/01/21 Ke Hernandes MD [address] [place] [address] Assigned Heart and Vascular Provider 04/28/20 [facility] [address] [place] [address] Assigned Surgical Provider 02/02/21 Ke Hernandes MD [address] [place] [address] Assigned Heart and Vascular Provider 12/13/21 02/26/23 Debbie Titus PA-C [address] [place] [address] Physician Ice Platform Supervisor Cardiovascular Disease 01/07/23 Noemy De León APRN LOCK INSTALLER [address] [place] [address] Assigned Heart and Vascular Provider 08/06/23 documented as of this encounter
--- OUTSIDE RECORDS SUMMARY | 2024-03-01 17:03 | XMS_ITS | Encounter Summary ---
Author Organization [facility] Address [address] [place] [address] Care Team Providers Care Hot Strip Mill Supervisor Name Role Phone Christian Steiner MD Primary Care Provider Unavail able Christian Steiner MD Unavailable Unavailable Christian Steiner MD Unavailable Unavailable Humberto Good MD Unavailable [phone] Ke Hernandes MD Unavailable Ina Sheriff MD Primary Care Provider + Herson Licea MD Unavailable [phone] Ke Hernandes MD Unavailable [phone] Debbie Titus PA-C Unavailable [phone] Noemy De León APRN SCIENTIFIC ILLUSTRATOR Unavailable [phone] Reason for Visit * Reason Onset Date Comments Medication Refill 08/04/2018 LISINOPRIL 20M G TABLETS Encounter Details Date Type Department Care Team (Late st Contact Info) Description 08/03/[address] [address] Christian Steiner MD Medication Refill (LISINOPRIL 20MG [...] encounter Miscellaneous Notes * Telephone Encounter - Sindy Pittman RN - 08/04/2018 4:14 PM CST Called pharmacy and gave verbal for this medication. SCRUBBER OPERATOR * Telephone Encounter - Ethel Olson RN - 08/04/2018 10:49 AM GAS SCRUBBER OPERATOR Duplicate. Denied. SCRUBBER OPERATOR * Telephone Encounter - Vesna Mororw LPN - 08/04/2018 9:59 AM CST Requested [...] Labs Lab Test 02/16/18 0909 POTASSIUM 4.4 SCRUBBER OPERATOR documented in this encounter Plan of Treatment Upcoming Encounters Date Type Department Care Team (Late st Contact Info) Description 05/24/2024 Ancillary Procedure [facility] [address] [facility] [address] [place] [phone] Tonya Sneed MD [address] [place] [phone] documented as of this encounter Visit Diagnoses Diagnosis Essential hypertension with goal blood pressure less than 140/90 documented in this encounter Care Teams Hot Strip Mill Supervisor Relationship Specialty Start Date End Date Christian Steiner MD PCP - General Internal Medicine 08/30/12 01/29/21 Christian Steiner MD PCP - Assigned PCP 08/11/12 08/16/18 Ina Sheriff MD [facility] & [address] [address] PCP - General Family Medicine 01/30/21 Christian Steiner MD Assigned PCP 08/11/12 02/22/21 Humberto Good MD [address] [place] [address] Assigned Surgical Provider 04/05/20 02/01/21 Ke Hernandes MD [address] [place] [address] Assigned Heart and Vascular Provider 04/28/20 10/11/21 Herson Licea MD [address] [place] [address] Assigned Surgical Provider 02/02/21 Ke Hernandes MD [address] [place] [address] Assigned Heart and Vascular Provider 12/13/21 02/26/23 Debbie Titus PA-C [address] [place] [phone] Physician Economic Developer Cardiovascular Disease 01/07/23 Noemy De León APRN SCIENTIFIC ILLUSTRATOR [address] [place], [place] [address] Assigned Heart and Vascular Provider 08/06/23 documented as of this encounter
--- OUTSIDE RECORDS SUMMARY | 2024-03-01 17:04 | XMS_ITS | Encounter Summary ---
Author Organization [facility] Address [address] [place] [address] Care Team Providers Care Classified Advertising Supervisor Name Role Phone Christian Steiner MD Primary Care Provider Unavail able Christian Steiner MD Unavailable Unavailable Christian Steiner MD Unavailable Unavailable Humberto Good MD Unavailable [phone] Ke Hernandes MD Unavailable [phone] Ina Sheriff MD Primary Care Provider + Herson Licea MD Unavailable [phone] Ke Hernandes MD Unavailable [phone] Debbie Titus PA-C Unavailable [phone] Noemy De León APRN ELECTRICAL ASSEMBLY SUPERVISOR Unavailable [phone] Reason for Visit * Reason Comments Medication Refill metFORMIN (GLUCOPHAG E) 1000 MG tablet Encounter Details Date Type Department Care Team (Late st Contact Info) Description 12/25/[address] [phone] Christian Steiner MD Medication Refill (metFORMIN (GLUCOPHAGE) [...] than 1 year since last office visit. * Telephone Encounter - Carmen Monet CMA - 12/26/2014 7:14 AM CDT metFORMIN (GLUCOPHAGE) 1000 MG tablet Last Written Prescription Date: 09/25/14 Last Fill Quantity: 180, # refills: 0 Last Office Visit with [facility] primary care provider: 09/05/13 MICROL 5 03/21/2014 [...] st Contact Info) Description 05/24/2024 Ancillary Procedure [facility] [address] [facility] [address] [place] [phone] Tonya Sneed MD [address] [facility] [address] [place] [address] documented as of this encounter Visit Diagnoses Diagnosis Diabetes mellitus, type 2 (H)- Primary Type II or unspecified type diabetes mellitus without mention of complication, not stated as uncontrolled documented in this encounter Care Teams Classified Advertising Supervisor Relationship Specialty Start Date End Date Christian Steiner MD PCP - General Internal Medicine 08/30/12 01/29/21 Christian Steiner MD PCP - Assigned PCP 08/11/12 08/16/[address] [facility] & [address] [address] PCP - General Family Medicine 01/30/21 Christian Steiner MD Assigned PCP 08/11/12 02/22/21 Humberto Good MD [address] [place] [address] Assigned Surgical Provider 04/05/20 02/01/21 Ke Hernandes MD [address] [place] [address] Assigned Heart and Vascular Provider 04/28/20 10/11/21 Herson Licea MD [address] [place] [address] Assigned Surgical Provider 02/02/21 Ke Hernandes MD [address] [place] [address] Assigned Heart and Vascular Provider 12/13/21 02/26/23 Debbie Titus PA-C [address] [place] [address] Physician Boiler Repairman Cardiovascular Disease 01/07/23 Noemy De León APRN ELECTRICAL ASSEMBLY SUPERVISOR [address] [place] [address] Assigned Heart and Vascular Provider 08/06/23 documented as of this encounter
--- OUTSIDE RECORDS SUMMARY | 2024-03-01 17:04 | XMS_ITS | Encounter Summary ---
Author Organization [facility] Address [address] [place] [address] Care Team Providers Care Certified Energy Manager Name Role Phone Christian Steiner MD Primary Care Provider Unavail able Christian Steiner MD Unavailable Unavailable Christian Steiner MD Unavailable Unavailable Humberto Good MD Unavailable [phone] Ke Hernandes MD Unavailable [phone] Ina Sheriff MD Primary Care Provider + Herson Licea MD Unavailable [phone] Ke Hernandes MD Unavailable [phone] Debbie Titus PA-C Unavailable [phone] Noemy De León APRN METAL CHECKER Unavailable [phone] Reason for Visit * Reason Comments Medication Refill metFORMIN (GLUCOPHAG E) 1000 MG tablet Encounter Details Date Type Department Care Team (Late st Contact Info) Description 09/24/[address] [phone] Christian Steiner MD Medication Refill (metFORMIN (GLUCOPHAGE) [...] last office visit. * Telephone Encounter - Francisca Lee MA - 09/24/2014 3:21 PM CDT Metformin (Glucophage) 1000MG Last Written Prescription Date: 03/26/2014 Last Fill Quantity: 180, # refills: [address] [facility] primary care provider: 09/05/2013 MICROL 5 03/21/2014 [...] st Contact Info) Description 05/24/2024 Ancillary Procedure [facility] [address] [facility] [address] [place] [phone] Tonya Sneed MD [address] [facility] [address] [place] [phone] documented as of this encounter Visit Diagnoses Diagnosis Type II or unspecified type diabetes mellitus without mention of complication, not stated as uncontrolled- Primary documented in this encounter Care Teams Certified Energy Manager Relationship Specialty Start Date End Date Christian Steiner MD PCP - General Internal Medicine 08/30/12 01/29/21 Christian Steiner MD PCP - Assigned PCP 08/11/12 08/16/18 Ina Sheriff MD [facility] & [address] [address] PCP - General Family Medicine 01/30/21 Christian Steiner MD Assigned PCP 08/11/12 02/22/21 Humberto Good MD [address] [place] [address] Assigned Surgical Provider 04/05/20 02/01/21 Ke Hernandes MD [address] [place] [address] Assigned Heart and Vascular Provider 04/28/20 10/11/21 Herson Licea MD [address] [place] [address] Assigned Surgical Provider 02/02/21 Ke Hernandes MD [address] [place] [address] Assigned Heart and Vascular Provider 12/13/21 02/26/23 Debbie Titus PA-C [address] [place] [address] Physician Sound Effects Manager Cardiovascular Disease 01/07/23 Noemy De León APRN [facility] [address] [place] [address] Assigned Heart and Vascular Provider 08/06/23 documented as of this encounter
== END 2024-02-28 07:40 | disposition home or self-care (01) ==
LOC: NFLDREF 03-01 17:00
PROVIDERS: PCP Family Medicine; Referring Provider Family Medicine; Visit Provider Family Medicine
DX: E55.9 Vitamin D deficiency, unspecified (principal); I10 Essential (primary) hypertension; E78.5 Hyperlipidemia, unspecified; D64.9 Anemia, unspecified; E11.9 Type 2 diabetes mellitus without complications; E53.8 Deficiency of other specified B group vitamins; M81.0 Age-related osteoporosis without current pathological fracture
CPT/HCPCS: 80053; 82306; 82607

== ENCOUNTER 2024-08-21 07:40 | Outpatient (CLI) | payer MEDICARE, SELFPAY | END 2024-08-21 07:41 | disposition home or self-care (01) | LOC: NFLDREF 08-22 07:39 | PROVIDERS: PCP Family Medicine; Referring Provider Family Medicine; Visit Provider Family Medicine | DX: E78.5 Hyperlipidemia, unspecified (principal); E55.9 Vitamin D deficiency, unspecified; D64.9 Anemia, unspecified; E78.00 Pure hypercholesterolemia, unspecified; E11.40 Type 2 diabetes mellitus with diabetic neuropathy, unspecified; I10 Essential (primary) hypertension; M81.0 Age-related osteoporosis without current pathological fracture; E53.8 Deficiency of other specified B group vitamins; Z79.899 Other long term (current) drug therapy | CPT/HCPCS: 80053; 80061; 82043; 82306; 82570; 82607 ==

== ENCOUNTER 2025-03-09 08:20 | Outpatient (CLI) | payer MEDICARE, SELFPAY | END 2025-03-09 08:21 | disposition home or self-care (01) | LOC: NFLDREF 03-12 07:46 | PROVIDERS: PCP Family Medicine; Referring Provider Family Medicine; Visit Provider Family Medicine | DX: I10 Essential (primary) hypertension (principal); E78.00 Pure hypercholesterolemia, unspecified; D64.9 Anemia, unspecified; E55.9 Vitamin D deficiency, unspecified | CPT/HCPCS: 80053; 82306; 82607 ==